=== PATIENT | male | born 1930 | race Caucasian/White ===

== ENCOUNTER 2016-07-18 18:52 | Emergency (ER) | payer OTHER ==
[~2016-07-18] VITALS: Ht 167.6 cm; Wt 75.0 kg
[~2016-07-18 18:52] MED LIST: DOCU100C59 PO; LANT3I SQ; LOSA50TA2 PO; PANT40TA4 PO; SIMV20TA6 PO; TAMS-14 PO; [UNRECOGNIZED DRUG - CODE] PO
[2016-07-18 19:02] VITALS: Ht 167.6 cm; Wt 75.0 kg
--- NOTE | 2016-07-18 20:28 | RADRPT ---
PROCEDURE: Left upper extremity venous ultrasound CLINICAL INDICATION: Left arm pain and swelling. Deep venous thrombosis. TECHNIQUE: Rose scale, color doppler, spectral doppler ultrasound imaging of the venous system of the left upper extremity. Augmentation maneuvers were utilized. COMPARISON: No prior studies are available for comparison. FINDINGS: LEFT: Internal jugular vein: Patent. Subclavian vein: Patent. Axillary vein: Patent. Brachial vein: Patent. Basilic vein: Patent. Cephalic vein: Patent. Radial vein: Patent. Ulnar vein: Patent. IMPRESSION: No evidence of a deep vein thrombosis involving the left upper extremity. RPTAT: AADD .Radu Carter MD, MD Date Time Electronically viewed and signed by .Radu Carter MD, on 07/18/2016 20:28 .B/
--- NOTE | 2016-07-18 20:48 | RADRPT ---
PROCEDURE: Right upper extremity venous ultrasound CLINICAL INDICATION: Right arm pain and swelling, deep venous thrombosis TECHNIQUE: Rose scale, color doppler, spectral doppler ultrasound imaging of the venous system of the right upper extremity. Augmentation maneuvers were utilized. COMPARISON: No prior studies are available for comparison. FINDINGS: RIGHT: Internal jugular vein: Patent. Subclavian vein: Patent. Axillary vein: Patent. Brachial vein: Patent. Basilic vein: Patent. Cephalic vein: Patent. Radial vein: Patent. Ulnar vein: Patent. IMPRESSION: No evidence of a deep vein thrombosis involving the right upper extremity. RPTAT: AADD .Radu Carter MD, MD Date Time Electronically viewed and signed by .Radu Carter MD, on 07/18/2016 20:47 .B/
--- NOTE | 2016-07-18 21:05 | RADRPT ---
PROCEDURE: Ultrasound of the bilateral lower extremity venous system. CLINICAL INDICATION: Bilateral leg pain and swelling, deep venous thrombosis TECHNIQUE: Rose scale with and without compression, color doppler, spectral doppler of the venous system of the bilateral lower extremities was performed. Venous augmentation maneuvers were utilized . COMPARISON: No prior studies are available for comparison. FINDINGS: RIGHT: Common femoral vein: Patent. Femoral vein: Patent. Popliteal vein: Patent. Calf veins: Patent. No soft tissue abnormalities are identified. LEFT: Common femoral vein: Patent. Femoral vein: Patent. Popliteal vein: Patent. Calf veins: Patent. No soft tissue abnormalities are identified. IMPRESSION: No evidence of a deep vein thrombosis within the bilateral lower extremities. RPTAT: AADD .Radu Carter MD, MD Date Time Electronically viewed and signed by .Radu Carter MD, on 07/18/2016 21:04 .B/
[2016-07-18] MEDS ORDERED: FURO-109 PO (21:26)
[2016-07-18 21:43] VITALS: BP 148/61; PULSE 63; RESP 18
--- NOTE | 2016-07-18 22:49 | ERD ---
ER Documentation Chief Complaint Date/Time DATE: 07/18/16 TIME: 22:47 Chief Complaint left arm pain x 3 months, sent from clinic to r/o dvt HPI Patient is a 85-year-old male with hypertension and diabetes who presents with swelling. The patient was sent from the [facility] clinic for bilateral upper and lower extremity ultrasounds to rule out DVT. The patient started with swelling 4-5 months ago. The patient has had no treatment as of yet for the swelling. The patient feels diffuse body pain. ROS All systems reviewed and are negative except as per history of present illness. Medications Home Meds Active Scripts Furosemide* (Lasix*) 40 Mg Tablet, 40 MG PO DAILY, #20 TAB Prov:VICENTE BELTRAN MD 07/18/16 Reported Medications Pantoprazole* (Pantoprazole*) 40 Mg Tablet.dr, 40 MG PO DAILY, TAB 12/19/15 Insulin Glargine* (Lantus*) 100 Unit/Ml Soln, 20 UNITS SQ DAILY, #10 12/19/15 Docusate Sodium (Col-Rite) 100 Mg Capsule, 100 MG PO DAILY, #60 12/19/15 Tamsulosin Hcl* (Flomax*) 0.4 Mg Cap.er.24h, 0.4 MG PO DAILY, #60 12/19/15 Metformin HCl (Fortamet) 500 Mg Tab.er.24, 500 MG PO BID, #60 12/19/15 Simvastatin (Simvastatin) 20 Mg Tablet, 20 MG PO HS, #60 12/19/15 Losartan Potassium* (Cozaar*) 50 Mg Tablet, 50 MG PO DAILY, #30 12/19/15 Allergies Allergies: Coded Allergies: No Known Allergy (Unverified , 07/18/16) PMhx/Soc History of Surgery: Yes (APPENDECTOMY, CATARACTS) Anesthesia Reaction: No Hx Neurological Disorder: No Hx Respiratory Disorders: No Hx Cardiac Disorders: Yes (HTN) Hx Psychiatric Problems: No Hx Miscellaneous Medical Probl: No Hx Alcohol Use: No Hx Substance Use: No Hx Tobacco Use: No Smoking Status: Never smoker FmHx Family History: diabetes Physical Exam Vitals Vital Signs Date Time Temp Pulse Resp B/P Pulse Ox O2 Delivery O2 Flow Rate FiO2 07/18/16 21:43 63 18 148/61 98 Room Air 07/18/16 19:02 97.7 65 20 148/67 97 Physical Exam Const: No acute distress Head: Atraumatic Eyes: Normal Conjunctiva ENT: Normal External Ears, Nose and Mouth. Neck: Full range of motion..~ No meningismus. Resp: Clear to auscultation bilaterally Cardio: Regular rate and rhythm, no murmurs Abd: Soft, non tender, non distended. Normal bowel sounds Skin: No petechiae or rashes Back: No midline or flank tenderness Ext: Pitting edema to all 4 extremities 2+ Neur: Awake and alert Psych: Normal Mood and Affect Procedures/MDM Bilateral upper and lower extremity ultrasounds were negative for DVT. Patient is an 85-year-old male with hypertension and diabetes who presents with upper and lower extremity swelling. The patient had ultrasounds which were negative for DVT. I believe there may be an element of heart failure causing the swelling but the patient is in no respiratory distress at this time and his oxygen level is normal. He does not require submental oxygen. I believe outpatient management is appropriate. The patient will be given Lasix daily for the fluid. However he should have close follow-up with his primary doctor within 24-48 hours. He can return sooner for any worsening symptoms. Departure Diagnosis: Primary Impression: Swelling Condition: Fair Patient Instructions: Peripheral Edema, Bilateral Additional Instructions: Llame al doctor MAANA y noreen dimas ALEXANDRE PARA DENTRO DE 1-2 PRITCHARD.Dgale a la secretaria que nosotros le instruimos hacer esta alexandre.Avise o llame si ashley condicin se empeora antes de la alexandre. Regresa aqui si peor o no mejor. VICENTE BELTRAN MD July 18, 2016 22:49
== END 2016-07-18 21:44 | disposition home or self-care (01) ==
LOC: E/R 18:52
DX: M79.89 Other specified soft tissue disorders (principal); I10 Essential (primary) hypertension; E11.9 Type 2 diabetes mellitus without complications; Z79.84 Long term (current) use of oral hypoglycemic drugs; Z79.4 Long term (current) use of insulin
CPT/HCPCS: 93970; 93971; Z7502

== ENCOUNTER 2016-08-09 18:10 | Inpatient (IN) | payer OTHER ==
[~2016-08-09] VITALS: Ht 167.6 cm; Wt 69.3 kg
[~2016-08-09 18:10] MED LIST changes: +FURO-109 PO
[2016-08-09] MEDS ORDERED: ASC500 PO (21:09)
[2016-08-09] MEDS ORDERED: FER325 PO (21:09)
[2016-08-09] MEDS ORDERED: DOCU-159 PO (21:09)
[2016-08-09] MEDS ORDERED: FURO40TA4 PO (21:10)
[2016-08-09] MEDS ORDERED: SIMV20TA PO (21:11)
[2016-08-09] MEDS ORDERED: ASPI-664 PO (21:11)
[2016-08-09] MEDS ORDERED: GABA300C16 PO (21:11)
[2016-08-09] MEDS ORDERED: TAMS0.4C2 PO (21:12)
[2016-08-09] MEDS ORDERED: PANT40TA4 PO (21:12)
[2016-08-09] MEDS ORDERED: MELO-109 PO (21:13)
[2016-08-09] MEDS ORDERED: LOSA100T7 PO (21:13)
[2016-08-09] MEDS ORDERED: REPA0.5T3 PO (21:14)
[2016-08-09] MEDS ORDERED: SODIUM CHLORIDE 0.9% 1L BAG IV* STA (21:14)
[2016-08-09] MEDS ORDERED: HYDR-906 PO (21:15)
[2016-08-09] MEDS ORDERED: LANT3I SC (21:16)
[2016-08-09] MEDS ORDERED: DONE5TAB7 PO (21:17)
[2016-08-09] MEDS ORDERED: L. A1CAP12 PO (21:18)
[2016-08-09] MEDS ORDERED: LEVOFLOXACIN 750MG/D5W (PMX) 150 ML IVPB ONE (21:30)
--- NOTE | 2016-08-09 21:42 | RADRPT ---
PROCEDURE: XR Chest. CLINICAL INDICATION: Suspected sepsis TECHNIQUE: Single AP view of the chest were obtained COMPARISON: None FINDINGS: The heart is moderately enlarged. The pulmonary vasculature are enlarged bilaterally. The aorta dem onstrates atherosclerotic calcifications. There are mild bibasilar opacities present with likely sm all left effusion and left lower lobe consolidation. There is diffuse irregular sclerotic and lucent appearance of the osseous structures diffusely. IMPRESSION: Cardiomegaly and vascular congestion is seen with small left effusion and the presence of left lower lung consolidation which could represent atelectasis or pneumonia. Diffuse irregular density of the osseous structures is suspicious for osseous metastatic disease. RPTAT: AA .Eliecer Batres MD, Date Time Electronically viewed and signed by .Eliecer Batres MD, MD on 08/09/2016 21:42 .J/
[2016-08-09 21:47] LABS: ADD SCAN DIFF NO
[2016-08-09 21:48] LABS: BASOPHILS % 0.1 % (0.0-2.0); EOSINOPHILS % 0.1 % (0.0-7.0); HEMATOCRIT 28.9 % (42.0-52.0); HEMOGLOBIN 9.9 g/dl (14.0-18.0); LYMPHOCYTES # 1.1 10^3/ul (0.8-2.9); LYMPHOCYTES % 11.3 % (15.0-51.0); MEAN CORPUSCULAR HEMOGLOBIN 30.5 pg (29.0-33.0); MEAN CORPUSCULAR HGB CONC 34.3 g/dl (32.0-37.0); MEAN CORPUSCULAR VOLUME 88.9 fl (82.0-101.0); MONOCYTE # 1.1 10^3/ul (0.3-0.9); MONOCYTES % 11.5 % (0.0-11.0); NEUTROPHIL # 7.1 10^3/ul (1.6-7.5); NEUTROPHILS % 75.7 % (39.0-77.0); NUCLEATED RED BLOOD CELLS% 0.2 /100WBC (0.0-0.0); PLATELET COUNT 210 10^3/UL (140-415); RED BLOOD COUNT 3.25 10^6/ul (4.70-6.10); RED CELL DISTRIBUTION WIDTH 17.6 % (11.5-14.5); WHITE BLOOD COUNT 9.4 10^3/ul (4.8-10.8)
--- NOTE | 2016-08-09 21:54 | RADRPT ---
PROCEDURE: CT Brain without contrast. CLINICAL INDICATION: Altered mental status TECHNIQUE: Routine CT scan of the brain was performed on a high resolution multi detector scanner without intravenous contrast. One or more of the following dose reduction techniques were used: Auto mated exposure control; Adjustment of the mA and/or kV according to patient size; Use of iterative r econstruction technique. CTDI = 43 mGy. DLP = 839 mGy-cm. COMPARISON: No prior relevant examinations are available for comparison. FINDINGS: Hemorrhage: No evidence of intracranial hemorrhage. Acute ischemic changes: No evidence of acute ischemic changes. Mass effect/Midline shift: None. Parenchymal volume: Mild central parenchymal volume loss is evident. Ventricular system: Concordant with parenchymal volume. Chronic changes: There are numerous and confluent areas of significant low attenuation change within the supratentorial white matter most compatible with severe chronic microvascular ischemic changes. Atherosclerotic calcifications of the cavernous portions of both internal carotid arteries are prese nt. Extracranial soft tissues: Unremarkable. Calvarium: No fractures. Partially visualized abnormal sclerosis involving the clivus, occipital bon e, and both mandibular condyles; possibly also involving the partially visualized C1 vertebrae. Paranasal sinuses: Visualized paranasal sinuses are clear. Mastoid air cells: Visualized mastoid air cells are clear. IMPRESSION: No acute intracranial abnormalities. Severe chronic-appearing microvascular ischemic changes of the supratentorial white matter. MRI of the brain may be useful for further evaluation. Partially visualized abnormal sclerosis involving the clivus, occipital bone, both mandibular condyl es, and suspected within the C1 of vertebrae. Differential considerations includes Paget's disease, radiation therapy changes, osseous metastasis or other systemic bone disease. Bone scan may be use ful for further evaluation. RPTAT: AADD .Radu Carter MD, Date Time Electronically viewed and signed by .Radu Carter MD, MD on 08/09/2016 21:53 .B/
[2016-08-09 21:58] LABS: ADD UMIC YES; UR BILIRUBIN (Dip) NEGATIVE (NEGATIVE); UR BLOOD (Dip) TRACE (NEGATIVE); UR COLOR YELLOW (YELLOW); UR GLUCOSE (Dip) NEGATIVE (NEGATIVE); UR KETONES (Dip) NEGATIVE (NEGATIVE); UR LEUKOCYTE ESTERASE (Dip) NEGATIVE (NEGATIVE); UR NITRITE (Dip) NEGATIVE (NEGATIVE); UR TOTAL PROTEIN (Dip) NEGATIVE (NEGATIVE); UR UROBILINOGEN (Dip) 0.2 E.U./dL (0.1-1.0)
[2016-08-09 22:09] LABS: INR 1.29; PROTIME 16.2 Sec (12.2-14.2); PT RATIO 1.3
[2016-08-09 22:10] LABS: PARTIAL THROMBOPLASTIN TIME 32.8 Sec (25.0-35.0)
[2016-08-09 22:10] LABS: UR CLARITY HAZY (CLEAR)
[2016-08-09 22:11] LABS: UR BACTERIA MODERATE; UR TRANSITIONAL EPI CELL MODERATE
[2016-08-09 22:15] LABS: ALBUMIN 3.5 g/dl (3.3-4.9); ALBUMIN/GLOBULIN RATIO 1.4; BILIRUBIN,INDIRECT 0.5 mg/dl (0-1.1); BILIRUBIN,TOTAL 0.5 mg/dl (0.2-1.3); CREATININE 0.64 mg/dl (0.61-1.24); POTASSIUM 4.2 mmol/L (3.5-5.1)
[2016-08-09 22:26] LABS: TROPONIN-I 0.052 ng/ml (0.00-0.12)
--- NOTE | 2016-08-09 22:34 | RADRPT ---
PROCEDURE: US DVT. CLINICAL INDICATION: Right lower extremity pain and swelling. TECHNIQUE: Multiple longitudinal and transverse images of the right lower extremity veins were obt ained with muñoz scale and color Doppler imaging. 2D grayscale measurements with compression, color Doppler flow, and augmentation was performed. The calf veins were interrogated as well. COMPARISON: No prior studies are available for comparison. FINDINGS: The right common femoral, superficial femoral and popliteal veins are normally compressible througho ut. Color flow demonstrates normal filling of the vessels. Normal waveforms are visualized and the re is normal response to augmentation. The calf veins are visualized and are equally unremarkable. There is a 3.7 x 1.0 x 2.4 cm Parker's cyst in the popliteal fossa. IMPRESSION: 1. No right lower extremity DVT. 2. 3.7 cm Parker's cyst in the popliteal fossa. RPTAT: HTAR .Edward Buenrostro MD, Date Time Electronically viewed and signed by .Edward Buenrostro MD, on 08/09/2016 22:34 .R/
[2016-08-09 23:26] VITALS: TEMP 98.2
[2016-08-09] MEDS ORDERED: ACETAMINOPHEN 325 MG TAB PO PRN (23:30)
[2016-08-09] MEDS ORDERED: ONDANSETRON 4 MG INJ IV PRN (23:30)
[2016-08-09 23:35] LABS: CALCIUM 7.4 mg/dl (8.4-10.2); CREATININE 0.51 mg/dl (0.61-1.24)
[2016-08-10] VITALS (15 sets, daily range): BP systolic 111–136; BP diastolic 55–65; PULSE 77–109; RESP 17–20; Ht 167.6 cm; Wt 69.3 kg
--- NOTE | 2016-08-10 00:57 | ERA ---
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 Per his family, he has not been walking. He has had complaints of nausea, decreased appetite, and pain all over his body. He has not had any vomiting but has had multiple episodes of nonbloody diarrhea. He has not urinated today and had very little urine production yesterday. No fevers or chills. No falls or head injury. ROS Limited given patient is very altered Medications Home Meds Reported Medications L. Acidophilus/Pectin, [place] (Acidophilus Capsule) 1 Each Capsule, 1 EACH PO DAILY, CAP 08/09/16 Donepezil* (Donepezil*) 5 Mg Tablet, 5 MG PO QHS, #30 TAB 08/09/16 Insulin Glargine* (Lantus*) 100 Unit/Ml Soln, 10 UNIT SC QHS, #1 VIAL 08/09/16 Hydrocodone/Acetaminophen ([place] 5-325 Tablet) 1 Each Tablet, 1 EACH PO QID, TAB 08/09/16 Repaglinide* (Repaglinide*) 0.5 Mg Tablet, 1 MG PO AC MEALS Y for TID, TAB 08/09/16 Losartan Potassium* (Losartan Potassium*) 100 Mg Tablet, 100 MG PO DAILY, TAB 08/09/16 Meloxicam* (Meloxicam*) 7.5 Mg Tablet, 7.5 MG PO QAM, #30 TAB 08/09/16 Tamsulosin Hcl* (Tamsulosin Hcl*) 0.4 Mg Cap.er.24h, 0.4 MG PO DAILY, CAP 08/09/16 Pantoprazole* (Pantoprazole*) 40 Mg Tablet.dr, 40 MG PO AC BREAKFAST, TAB 08/09/16 Gabapentin* (Gabapentin*) 300 Mg Capsule, 300 MG PO TID, #90 CAP 08/09/16 Aspirin* (Aspirin* EC) 81 Mg Tablet.dr, 81 MG PO DAILY, TAB 08/09/16 Simvastatin* (Zocor*) 20 Mg Tablet, 20 MG PO QHS, #30 TAB 08/09/16 Furosemide* (Furosemide*) 40 Mg Tablet, 40 MG PO DAILY, TAB 08/09/16 Docusate Sodium* (Docusate Sodium*) 100 Mg Capsule, 100 MG PO DAILY, #30 CAP 08/09/16 Ascorbic Acid (Vitamin C) 500 Mg Tab, 500 MG PO DAILY, TAB 08/09/16 Ferrous Sulfate* (Ferrous Sulfate*) 325 Mg Tabec, 325 MG PO BID, TAB 08/09/16 Discontinued Reported Medications Pantoprazole* (Pantoprazole*) 40 Mg Tablet.dr, 40 MG PO DAILY, TAB 12/19/15 Insulin Glargine* (Lantus*) 100 Unit/Ml Soln, 20 UNITS SQ DAILY, #10 12/19/15 Docusate Sodium (Col-Rite) 100 Mg Capsule, 100 MG PO DAILY, #60 12/19/15 Tamsulosin Hcl* (Flomax*) 0.4 Mg Cap.er.24h, 0.4 MG PO DAILY, #60 12/19/15 Metformin HCl (Fortamet) 500 Mg Tab.er.24, 500 MG PO BID, #60 12/19/15 Simvastatin (Simvastatin) 20 Mg Tablet, 20 MG PO HS, #60 12/19/15 Losartan Potassium* (Cozaar*) 50 Mg Tablet, 50 MG PO DAILY, #30 12/19/15 Discontinued Scripts Furosemide* (Lasix*) 40 Mg Tablet, 40 MG PO DAILY, #20 TAB Prov:VICENTE BELTRAN MD 07/18/16 Allergies Allergies: Coded Allergies: No Known Allergy (Unverified , 08/09/16) PMhx/Soc History of Surgery: Yes (APPENDECTOMY, CATARACTS) Anesthesia Reaction: No Hx Neurological Disorder: No Hx Respiratory Disorders: No Hx Cardiac Disorders: Yes (HTN, prostate CA) Hx Psychiatric Problems: No Hx Miscellaneous Medical Probl: Yes (DM) Hx Alcohol Use: No Hx Substance Use: No Hx Tobacco Use: No Smoking Status: Never smoker FmHx Family History: other (Unable to obtain) Physical Exam Vitals Vital Signs Date Time Temp Pulse Resp B/P Pulse Ox O2 Delivery O2 Flow Rate FiO2 08/09/16 21:44 Nasal Cannula 2 08/09/16 20:40 98.9 127 20 94/54 97 Room Air 08/09/16 18:15 97.8 73 18 100/50 98 Physical Exam Const: Sickly appearing, pale, eyes closed, answers questions selectively Head: Atraumatic Eyes: Normal Conjunctiva ENT: Dry oral mucosa, no intraoral lesions Neck: Full range of motion. No JVD. No meningismus. Resp: Clear to auscultation bilaterally Cardio: Tachycardic with regular rhythm, no murmurs Abd: Soft, non tender, non distended. Normal bowel sounds Skin: No petechiae or rashes Back: No midline or flank tenderness Ext: No cyanosis, there is mild swelling of the right lower extremity compared to left lower extremity, nonpitting, no discoloration. 2+ distal pulses Neur: Somnolent, arousable, answers questions inappropriately, moves all extremities spontaneously, withdraws to pain in all extremities Result Diagram: 08/09/16212808/09/162128 Results 24 hrs Laboratory Tests Test 08/09/16 20:50 08/09/16 21:29 Urine Color YELLOW Urine Clarity HAZY Urine pH 5.0 Urine Specific [place] 1.015 Urine Ketones NEGATIVE Urine Nitrite NEGATIVE Urine Bilirubin NEGATIVE Urine Urobilinogen 0.2 E.U./dL Urine Leukocyte Esterase NEGATIVE Urine Microscopic RBC 10-25/HPF Urine Microscopic WBC NONE SEEN/HPF Urine Transitional Epithelial Cells MODERATE Urine Bacteria MODERATE Urine Hyaline Casts MODERATE Urine Hemoglobin TRACE Urine Glucose NEGATIVE% Urine Total Protein NEGATIVE White Blood Count 9.410^3/ul Red Blood Count 3.2510^6/ul Hemoglobin 9.9g/dl Hematocrit 28.9% Mean Corpuscular Volume 88.9fl Mean Corpuscular Hemoglobin 30.5pg Mean Corpuscular Hemoglobin Concent 34.3g/dl Red Cell Distribution Width 17.6% Platelet Count 45107^3/UL Mean Platelet Volume 9.0fl Neutrophils % 75.7% Lymphocytes % 11.3% Monocytes % 11.5% Eosinophils % 0.1% Basophils % 0.1% Nucleated Red Blood Cells % 0.2/100WBC Neutrophils # 7.110^3/ul Lymphocytes # 1.110^3/ul Monocytes # 1.110^3/ul Eosinophils # 0.010^3/ul Basophils # 0.010^3/ul Nucleated Red Blood Cells # 0.010^3/ul Prothrombin Time 16.2Sec Prothrombin Time Ratio 1.3 INR International Normalized Ratio 1.29 Activated Partial Thromboplast Time 32.8Sec Sodium Level 117mmol/L Potassium Level 4.2mmol/L Chloride Level 85mmol/L Carbon Dioxide Level 25mmol/L Anion Gap 11 Blood Urea Nitrogen 20mg/dl Creatinine 0.64mg/dl Glucose Level 213mg/dl Lactic Acid Level 1.9mmol/L Calcium Level 8.0mg/dl Total Bilirubin 0.5mg/dl Direct Bilirubin 0.00mg/dl Indirect Bilirubin 0.5mg/dl Aspartate Amino Transf (AST/SGOT) 69IU/L Alanine Aminotransferase (ALT/SGPT) 32IU/L Alkaline Phosphatase 1442IU/L Troponin I 0.052ng/ml Total Protein 6.0g/dl Albumin 3.5g/dl Globulin 2.50g/dl Albumin/Globulin Ratio 1.40 Current Medications Medications (Trade) Dose Ordered Sig/John Route PRN Reason Start Time Stop Time Status Last Admin Dose Admin Sodium Chloride 2330 ml 2,330 ml BOLUS OVER 2 HOURS STAT IV* 08/09/16 21:14 08/09/16 21:16 DC 08/09/16 22:02 Levofloxacin/ Dextrose (Levaquin 750 Mg/ D5W 150 ml (Pmx)) 150 ml @ 100 mls/hr ONCE ONCE IVPB 08/09/16 21:30 08/09/16 22:59 DC 08/09/16 22:01 Procedures/MDM EMERGENT LABS AND DIAGNOSTIC STUDIES: Lab Results above were reviewed and interpreted by me. CBC is notable for anemia BMP shows hyponatremia Liver enzymes notable for alk phos elevation Lactate within normal limits Troponin within normal limits Urinalysis does not show evidence of infection, blood noted 12-lead EKG was interpreted by Jigna Awad MD: A flutter with variable block at 108 bpm Normal axis Normal intervals No acute ST or T wave changes suggestive of acute ischemia or STEMI. Repeat 12-lead EKG was interpreted by Jigna Awad MD: A flutter with variable block at 111 bpm Normal axis Normal intervals No acute ST or T wave changes suggestive of acute ischemia or STEMI. Radiology Results as interpreted by Radiology below were reviewed by Redd Awad MD: Chest x-ray: IMPRESSION: Cardiomegaly and vascular congestion is seen with small left effusion and the presence of left lower lung consolidation which could represent atelectasis or pneumonia. Diffuse irregular density of the osseous structures is suspicious for osseous metastatic disease. .Eliecer Batres MD, Date Time Electronically viewed and signed by .Eliecer Batres MD, on 08/09/2016 21:42 CT head: IMPRESSION: No acute intracranial abnormalities. Severe chronic-appearing microvascular ischemic changes of the supratentorial white matter. MRI of the brain may be useful for further evaluation. Partially visualized abnormal sclerosis involving the clivus, occipital bone, both mandibular condyles, and suspected within the C1 of vertebrae. Differential considerations includes Paget's disease, radiation therapy changes , osseous metastasis or other systemic bone disease. Bone scan may be useful for further evaluation. .Radu Carter MD, Date Time Electronically viewed and signed by .Radu Carter MD, MD on 08/09/2016 21:53 Venous duplex ultrasound right lower extremity: negative for DVT Initial Nursing notes reviewed. Previous Medical Records requested via the Electronic Health Record. EMERGENCY DEPARTMENT COURSE / MEDICAL DECISION MAKING: Patient is presenting with altered mental status and vitals notable for tachycardia and hypotension. However he is afebrile. On exam he does not appear well and appears dehydrated. IV fluids, broad-spectrum antibiotics were started. There is no obvious source of infection on exam. His chest x-ray does show a consolidation consistent with possible pneumonia. Labs showed evidence of severe hyponatremia. Patient's infectious symptoms have not stabilized and the patient is at risk of rapid decompensation. The patient will be admitted for careful hydration, antibiotic therapy, and infectious source control. Severe Sepsis Assessment: Infectious Source: Possible pneumonia Severe Sepsis Managment: Blood Cultures X 2 before broad spectrum antibiotics initiated within 3 hours of recognition. 30 ml/kg NS bolus Completed Initial Lactate: [normal] Repeat Lactate [not indicated as initial < 2.0] Critical Care: Time: 35 minutes Treatments/Evaluations: Emergent fluid management, while maintaining close respiratory support. Immediate broad spectrum antibiotic therapy. Simultaneous assessment for possible sources in order to direct therapy. Consideration for invasive and chemical support to prevent respiratory or cardiac collapse. Accepting Care Team: Current data and ongoing care discussed. Time: Time of admission Primary Provider: Bri Consulting: none Outstanding Data: cultures Departure Diagnosis: Primary Impression: Altered mental status Qualified Code: R40.0 - Somnolence Additional Impressions: Hypotension Qualified Code: I95.89 - Other specified hypotension Tachycardia Metastatic malignant neoplasm to prostate Hyponatremia Condition: Serious BRAN AWAD MD Aug 10, 2016 00:49
[2016-08-10] MEDS ORDERED: ACETAMINOPHEN 650 MG SUPP PR PRN (03:00)
[2016-08-10] MEDS ORDERED: GLUCOSE GEL 15 GRAM TUBE PO PRN ×2 (03:45)
[2016-08-10] MEDS ORDERED: GLUCOSE GEL 15 GRAM TUBE BUCCAL PRN (03:45)
[2016-08-10] MEDS ORDERED: DILTIAZEM 25 MG INJ IV PRN (03:45)
[2016-08-10] MEDS ORDERED: DEXTROSE 50% 50 ML SYRINGE IV PRN ×2 (03:45)
[2016-08-10] MEDS ORDERED: GLUCAGON 1 MG INJ IM PRN (03:45)
[2016-08-10] MEDS ORDERED: NACL 3% 300 ML IV SCH (04:00)
[2016-08-10] MEDS: PANTOPRAZOLE 40 MG INJ IV SCH (05:35)
[2016-08-10] MEDS: INSULIN ASPART [NOVOLOG] 3 ML PEN SC SCH ×5 (05:47→20:36)
[2016-08-10] MEDS: ENOXAPARIN 40 MG/0.4 ML SYG SC SCH (09:35)
[2016-08-10] MEDS ORDERED: PENDING SANTYL ORDER FOR WOUND CARE XX PRN (12:00)
[2016-08-10 12:11] LABS: CALCIUM 7.6 mg/dl (8.4-10.2); CREATININE 0.47 mg/dl (0.61-1.24)
--- NOTE | 2016-08-10 13:49 | HP ---
DATE OF ADMISSION: 08/09/2016 CHIEF COMPLAINT: Decreased appetite, nausea, altered level of consciousness. HISTORY OF PRESENT ILLNESS: The patient is an 86-year-old male who lives with his daughter . Patient has a history of metastatic prostate cancer which is untreated, history of hypertension, diabetes. Patient presented for altered mental status for the past couple of days. Per family, the patient has not been walking. Per family, the patient had decreased appetite, complains of nausea and myalgia. The patient also had episodes of nonbloody diarrhea. Patient also was unable to urina te, per family. The patient had a Montesinos catheter inserted in the emergency room with good response. Patient underwent bilateral lower extremity ultrasound which was negative for right lower extremit y DVT, ____ of 3.7 cm Parker cyst in the popliteal fossa. The patient's chest x-ray revealed cardi omegaly and vascular congestion, is seen with a small left effusion and the presence of left lower l israel consolidation which could represent atelectasis or pneumonia, diffuse irregular density and also the structures suspicious for ____ metastatic disease. The patient underwent CT of the brain witho ut contrast which revealed no acute intracranial abnormalities, severe chronic appearing microvascul ar ischemic changes of the supratentorial white matter, partially visualized abnormal sclerosis invo lving the clivus occipital bone, both mandibular condyles and suspected within C1 of vertebra. The patient was also tachycardic and hypotensive. Patient was given IV fluids and started on broad spectrum antibiotics and patient was admitted for further evaluation and management. PAST MEDICAL HISTORY: Includes hypertension, prostate CA and diabetes mellitus. PAST SURGICAL HISTORY: Status post appendectomy, status post cataract surgery and status post ERCP with stent removal, sphincterectomy and removal of stones by Dr. Pat in 2016. FAMILY HISTORY: Noncontributory. SOCIAL HISTORY: Patient lives at home with her family and there is no history of tobacco use, alcoh ol use or illicit drug use. ALLERGIES: NO KNOWN ALLERGIES. HOME MEDICATIONS: Include: 1. Acidophilus. 2. Donepezil. 3. Lantus. 4. [place]. 5. Repaglinide. 6. Cozaar. 7. Meloxicam. 8. Tamsulosin. 9. Protonix. 10. Gabapentin. 11. Aspirin. 12. Zocor. 13. Furosemide. 14. Colace. 15. Vitamin C. 16. Ferrous sulfate. REVIEW OF SYSTEMS: A 12-point review of systems is negative unless mentioned in the HPI. PHYSICAL ASSESSMENT: GENERAL: well-developed, well-nourished male, currently is awake, alert to name. Otherwise, pleasa ntly confused. VITAL SIGNS: Temperature is 98.2, pulse is 77, blood pressure 118/58, respiratory rate is 18, oxyge n saturation is 97. HEENT: Head is atraumatic, normocephalic. Pupils equal, round, reactive to light and accommodation . Oral mucosa is pink and moist. NECK: Supple, no cervical lymphadenopathy, no thyromegaly. CHEST: Lungs clear bilaterally. There are no rhonchi or wheezes heard. CARDIOVASCULAR: Normal S1, S2. No murmurs, gallops, clicks, rubs noted. ABDOMEN: Round, soft, nondistended, nontender. Patient has a mild reducible umbilical hernia. EXTREMITIES: There is mild swelling of the right lower extremity, pulses equal bilaterally 2+. SKIN: There is no rash, petechiae noted. The patient has some discoloration of his sacrum. NEUROLOGIC: Patient is awake, alert to name; otherwise confused. LABORATORY DATA: On admission, CBC: White blood cells 9.4, hemoglobin 9.9, hematocrit 28.9, platel ets 210. Chemistry: Sodium on admission is 114, potassium 4.0, chloride 89, carbon dioxide 22, ani on gap 7, BUN is 18, creatinine 0.51, glucose 183, calcium is 7.4. Lactic acid is 1.9, AST is 69, A LT 32, alkaline phosphate is 1442. ASSESSMENT AND PLAN: 1. Altered mental status, possible pneumonia. Continue patient on broad spectrum antibiotics. Mon itor chest x-ray. 2. Paroxysmal atrial fibrillation. I am going to ask Dr. Ragsdale to see patient in cardiology cons ultation. Continue to monitor patient on telemetry floor. 3. Hyponatremia. Dr. Howard will be following patient in nephrology consultation. Continue intrave nous fluids. 4. History of prostate carcinoma. 5. Diabetes mellitus. 6. Hypertension. 7. Urinary retention. We are going to resume patient's home medications. Continue to monitor Accu-Chek q. a.c. and at bed time with mild ____ sliding scale insulin. Obtain a swallow evaluation. Continue Lovenox for deep venous thrombosis prophylaxis and Protonix for peptic ulcer disease prophylaxis. Further recommenda tions based on clinical course. Plan of care discussed with Dr. Paul. Dictated By: ROBERT CORRALES RACK CARRIER for CHANELLE PAUL MD SR/NTS Conf#: [id number] DID#: [id number]
[2016-08-10] MEDS ORDERED: METOPROLOL 5 MG INJ IV PRN (14:30)
--- NOTE | 2016-08-10 14:30 | CONS ---
DATE OF ADMISSION: 08/09/2016 DATE OF CONSULTATION: 08/10/2016 TYPE OF CONSULTATION: Nephrology REASON FOR CONSULTATION: Acute metabolic encephalopathy with severe hyponatremia, sodium 114 on adm ission. REFERRING PHYSICIAN: Dr. Gregory. HISTORY OF PRESENT ILLNESS: This is an 86-year-old male with a past medical history of hypertension , history of prostate CA, history of bilateral knee osteoarthritis, diabetes mellitus, history of pr evious appendectomy. The patient was brought in to the [facility] Emergency Room on 08/09/2016 by paramedics because of altered mental status. The patient is not able to provide an y detailed history. The patient has not been walking as per the family. Patient complains of nause a, decreased appetite, pain all over his body. He has been confused and altered for the last 2 days . He had multiple episodes of non-bloody diarrhea. Patient did not urinate yesterday. A Montesinos cat heter was placed in the emergency room and has so far had about 700 mL urine output. On admission, the sodium was 144, subsequently started on 3% hypertonic saline. The followup sodium was 122. Cur rently, he is awake, alert, but he is still confused intermittently, not able to answer the question s properly. REVIEW OF SYSTEMS: Unable to obtain from the patient, he seems currently altered and confused. PAST SURGICAL HISTORY: History of appendectomy, cataract surgery. SOCIAL HISTORY: The patient is brought in by family, lives with the family. No smoking, alcohol or recreational drug use. FAMILY HISTORY: Noncontributory. PHYSICAL EXAMINATION: VITAL SIGNS: Temperature 98.2, heart rate 100, respiration 18, blood pressure 118/58, saturation 97 % on room air. GENERAL: Awake, alert, in no distress. HEENT: Normal. Oropharynx clear. NECK: Supple, no JVD, no lymphadenopathy. LUNGS: Clear to auscultation. No crackles, no wheezes. HEART: S1, S2, with regular rhythm, no murmur. ABDOMEN: Soft, nontender, nondistended. Bowel sounds are present. EXTREMITIES: No clubbing, cyanosis, or edema. Montesinos catheter in place. NEUROLOGICAL: Alert, awake but not oriented to the place, person and time. Not cooperative for a f ull neurological exam. LABORATORY DATA AND DIAGNOSTIC IMAGING: Sodium 114, potassium 4, chloride 89, bicarbonate 22, BUN 18, creatinine 0.5, glucose 183, calcium is 7.4, lactic acid normal. PT 16.2, PTT 32.8, INR 1.29. WBC 9.4, hemoglobin 9.9, platelet count 210. CT brain without contrast negative for any acute find ings, severe chronic appearing vascular ischemic changes have been identified. IMPRESSION: This is an 86-year-old male who has been getting admitted for acute metabolic encephalo myrna and renal has been consulted for: 1. Severe hyponatremia with a sodium 114 on admission. 2. Acute metabolic encephalopathy and fall at home secondary to severe hyponatremia. 3. Hypovolemic hyponatremia versus syndrome of inappropriate diuretic hormone. 4. Hypertension. 5. Hyperlipidemia. 6. History of prostate carcinoma. 7. History of diabetes mellitus. 8. History of bilateral knee arthritis. PLAN: Thank you, Dr. Gregory, for this consultation. The patient is currently seen in the telemet ry floor, has been started on 3% hypertonic sodium, which was 114 on admission, has been improved to 122 at this point. I ordered another BMP to follow up on the sodium. The goal is to keep the sodi um up to 128 for today and if the sodium goes more than 128, plan is to stop the 3% hypertonic salin e and further plan will be decided depending on the followup sodium. Continue the sodium and 3:00 a.m. labs have been ordered to follow up on the sodium. At this point, the patient already received a 3% hypertonic saline so there is no point of ordering any urine studies, serum osmolality or urine osmolality. We will continue to follow this patient al darren with the primary care service, Dr. Gregory. Total time spent in this patient's evaluation, getting a detailed history from the patient and the f amily member, communicating with the nursing staff, ____ on the floor took more than 90 minutes. Dictated By: KARLENE MUÑOZ MD, KP/CHERRY Conf#: [id number] DID#: [id number] CC: CHANELLE GREGORY MD;*EndCC*
[2016-08-10 15:25] LABS: CALCIUM 7.6 mg/dl (8.4-10.2); CREATININE 0.43 mg/dl (0.61-1.24); POTASSIUM 3.9 mmol/L (3.5-5.1)
--- NOTE | 2016-08-10 17:15 | RADRPT ---
Echocardiogram Report Patient Name: CONCHA HORVATH Gender: Male Date: 1930 Study Date: 10-Aug-2016 [facility] Supervisor: Favio Domingo [facility] Location: [id number] Ref. Physician: ROSI RAGSDALE Quality: Adequate Procedures: Transthoracic echocardiogram with complete 2D, M-Mode, and doppler examination. Indications: Atrial Flutter. 2D/M Mode Doppler Measurement Value Normal Ranges Measurement Value Normal Ranges LVIDd 2D 4.8 3.5 - 5.6 cm AV Peak Abhilash 1.9 m/sec LVIDs 2D 2.5 2.1 - 4.1 cm AV Peak PG 14.0 mmHg FS 2D 48.0 % LVOT Peak Abhilash 1.2 m/sec LVPWd 2D 1.0 0.6 - 1.1 cm LVOT Peak PG 6.0 mmHg IVSd 2D 1.1 0.6 - 1.1 cm MV E Peak Abhilash 0.5 m/sec IVS/LVPW 2D 1.1 MV A Peak Abhilash 0.8 m/sec AoR Diam 2D 3.6 2.0 - 3.7 cm MV E/A 0.7 LA/Ao 2D 1 0 - 1 MV Decel Time 155 msec EDV 2D 109.0 cm3 MV E/A 0.7 ESV 2D 15.3 cm3 TR Peak Abhilash 2.6 m/sec LA Dimen 2D 3.2 2.3 - 4.0 cm TR Peak PG 27.0 mmHg RVSP 35.0 mmHg Findings Left Ventricle: Normal left ventricular systolic function. Normal left ventricular cavity size. Mild concentric left ventricular hypertrophy. Ejection fraction is visually estimated at 5560 %. Tissue Doppler/Mitral Doppler indices are consistent with impaired relaxation (Stage I diastolic dysfunction). Right Ventricle: Normal right ventricular size. Normal right ventricular systolic function. Left Atrium: The left atrium is normal in size. Right Atrium: The right atrium is normal in size. Mitral Valve: Mitral valve leaflets appear mildly thickened. Mild mitral annular calcification. Trace mitral regurgitation. Aortic Valve: No hemodynamically significant aortic stenosis by doppler. Aortic cusps appear mildly calcified. Trace to mild aortic valve regurgitation. Tricuspid Valve: Normal appearance of the tricuspid valve. Estimated peak PA systolic pressure 35 mmHg. There is trace tricuspid regurgitation. Pulmonic Valve: Pulmonic valve not well visualized. Pericardium: Left pleural effusion seen. Aorta: Normal aortic root. IVC: Dilated IVC with respiratory collapse consistent with elevated right atrial pressure. Conclusions 1.Normal left ventricular systolic function. Normal left ventricular cavity size. Mild concentric left ventricular hypertrophy. Ejection fraction is visually estimated at 55-60 %. Tissue Doppler/Mitral Doppler indices are consistent with impaired relaxation (Stage I diastolic dysfunction). 2.Mitral valve leaflets appear mildly thickened. Mild mitral annular calcification. Trace mitral regurgitation. 3.No hemodynamically significant aortic stenosis by doppler. Aortic cusps appear mildly calcified. Trace to mild aortic valve regurgitation. 4.Normal appearance of the tricuspid valve. Estimated peak PA systolic pressure 35 mmHg. There is trace tricuspid regurgitation. 5.Left pleural effusion seen. Electronically Signed By: Rosi Rgasdale 10-Aug-2016 17:14:57 -0700 Patient Name: CONCHA HORVATH Study Date: 10-Aug-2016 [id number]
[2016-08-10] MEDS: ASPIRIN 325 MG TAB PO SCH (17:40)
[2016-08-10] MEDS: AMIODARONE 200 MG TAB PO SCH (20:28)
[2016-08-10] MEDS: METOPROLOL 25 MG TAB PO SCH (20:28)
[2016-08-10] MEDS ORDERED: VANCOMYCIN IV PER PHARMACY XX SCH (23:30)
[2016-08-10] MEDS ORDERED: LORAZEPAM 2 MG INJ IV PRN (23:30)
[2016-08-11] VITALS (11 sets, daily range): BP systolic 125–159; BP diastolic 58–89; PULSE 71–92; RESP 16–20
[2016-08-11] MEDS: INSULIN ASPART [NOVOLOG] 3 ML PEN SC SCH ×6 (00:13→20:41)
[2016-08-11] MEDS ORDERED: VANCOMYCIN 1.5 GM in SOD CHLORIDE 0.9% 250 ML IVPB ONE (01:00)
[2016-08-11] MEDS: PANTOPRAZOLE 40 MG INJ IV SCH (05:27)
[2016-08-11 07:03] LABS: ADD SCAN DIFF NO; BASOPHILS % 0.1 % (0.0-2.0); EOSINOPHILS % 0.1 % (0.0-7.0); HEMATOCRIT 25.5 % (42.0-52.0); HEMOGLOBIN 8.5 g/dl (14.0-18.0); LYMPHOCYTES # 1.1 10^3/ul (0.8-2.9); LYMPHOCYTES % 10.1 % (15.0-51.0); MEAN CORPUSCULAR HEMOGLOBIN 30.4 pg (29.0-33.0); MEAN CORPUSCULAR HGB CONC 33.3 g/dl (32.0-37.0); MEAN CORPUSCULAR VOLUME 91.1 fl (82.0-101.0); MEAN PLATELET VOLUME 8.8 fl (7.4-10.4); MONOCYTE # 0.8 10^3/ul (0.3-0.9); NEUTROPHIL # 8.3 10^3/ul (1.6-7.5); NEUTROPHILS % 80.4 % (39.0-77.0); PLATELET COUNT 257 10^3/UL (140-415); RED CELL DISTRIBUTION WIDTH 17.8 % (11.5-14.5); WHITE BLOOD COUNT 10.4 10^3/ul (4.8-10.8)
[2016-08-11 07:23] LABS: ALBUMIN 2.9 g/dl (3.3-4.9); ALBUMIN/GLOBULIN RATIO 1.26; BILIRUBIN,INDIRECT 0.4 mg/dl (0-1.1); BILIRUBIN,TOTAL 0.4 mg/dl (0.2-1.3); CALCIUM 7.9 mg/dl (8.4-10.2); CREATININE 0.41 mg/dl (0.61-1.24); TOTAL PROTEIN 5.2 g/dl (6.1-8.1)
[2016-08-11] MEDS: ASPIRIN 325 MG TAB PO SCH (08:27)
[2016-08-11] MEDS: METOPROLOL 25 MG TAB PO SCH ×2 (08:28→20:31)
[2016-08-11] MEDS: AMIODARONE 200 MG TAB PO SCH ×2 (08:28→20:30)
[2016-08-11] MEDS: ENOXAPARIN 40 MG/0.4 ML SYG SC SCH (08:29)
--- NOTE | 2016-08-11 10:16 | CONS ---
Date/Time of Note Date/Time of Note DATE: 08/11/16 TIME: 10:14 Assessment/Plan Assessment/Plan Additional Assessment/Plan 1. Parox a. fib - in sinus now, rate controlled, con't to follow 1. Severe hyponatremia with a sodium 114 on admission - renal team follow, rx as needed 2. Acute metabolic encephalopathy and fall at home secondary to severe hyponatremia- still confused, gfamily at bedside 3. Hypovolemic hyponatremia versus syndrome of inappropriate diuretic hormone. 4. Hypertension- well Rx, con't to follow - not taking po meds now. 5. Hyperlipidemia. 6. History of prostate carcinoma. 7. History of diabetes mellitus - on meds, keep euglycemic. 8. History of bilateral knee arthritis. Consultation Date/Type/Reason Admit Date/Time Aug 09, 2016 at 23:11 Initial Consult Date 24 HR Interval Summary Free Text/Dictation Parox a. fib - in sinus now, rate controlled, con't to follow ROS: No fever, no chills, no nausea, no vomiting, no diarrhea/constipation No recent weight changes No chest pain, no PND, no orthopnea No dizziness, blurred vision No thirst, no heat or cold intolerance (per nurse- pt encephalopathic) Exam/Review of Systems Vital Signs Vitals Vital Signs Date Time Temp Pulse Resp B/P Pulse Ox O2 Delivery O2 Flow Rate FiO2 08/11/16 08:34 78 08/11/16 07:14 98.3 18 133/89 94 08/10/16 01:07 Room Air 08/09/16 21:44 2 Intake and Output 08/10/16 08/10/16 08/11/16 15:00 23:00 07:00 Intake Total 480 ml 400 ml Output Total 500 ml 400 ml Balance -20 ml 0 ml Exam General: WN/WD/NAD, AOx 0 HEENT: Unicetric/atraumatic/EOMI (does not follow commands) NECK: JVD elevated, no thyromegaly Lymph: no lymphadenopathy HEART: regular with no S3, II/ systolic murmur at apex LUNGS: Coarse sounds ABD: soft, NT, ND, +BS : Intact Neuro: non focal SKIN: chronic changes EXT: trace edema Results Result Diagram: 08/11/16 0500 08/11/16 0610 Results 24 hrs Laboratory Tests Test 08/10/16 11:35 08/10/16 12:27 08/10/16 14:00 08/10/16 14:50 Sodium Level 122 L 124 L Potassium Level 4.0 3.9 Chloride Level 95 L 96 L Carbon Dioxide Level 25 24 Anion Gap 6 L 8 Blood Urea Nitrogen 14 13 Creatinine 0.47 L 0.43 L Glucose Level 113 # 177 Calcium Level 7.6 L 7.6 L Bedside Glucose 125 Urine Random Sodium < 13 L Thyroid Stimulating Hormone (TSH) 0.958 Test 08/10/16 17:36 08/10/16 18:39 08/10/16 20:26 08/11/16 00:18 Bedside Glucose 166 265 H Troponin I 0.019 0.020 Test 08/11/16 05:00 08/11/16 05:26 08/11/16 06:10 08/11/16 08:30 White Blood Count 10.4 Red Blood Count 2.80 L Hemoglobin 8.5 L Hematocrit 25.5 L Mean Corpuscular Volume 91.1 Mean Corpuscular Hemoglobin 30.4 Mean Corpuscular Hemoglobin Concent 33.3 Red Cell Distribution Width 17.8 H Platelet Count 257 # Mean Platelet Volume 8.8 Neutrophils % 80.4 H Lymphocytes % 10.1 L Monocytes % 8.0 Eosinophils % 0.1 Basophils % 0.1 Nucleated Red Blood Cells % 0.0 Neutrophils # 8.3 H Lymphocytes # 1.1 Monocytes # 0.8 Eosinophils # 0.0 Basophils # 0.0 Nucleated Red Blood Cells # 0.0 Bedside Glucose 164 144 Sodium Level 127 L Potassium Level 4.0 Chloride Level 97 Carbon Dioxide Level 22 Anion Gap 12 Blood Urea Nitrogen 11 Creatinine 0.41 L Glucose Level 143 Calcium Level 7.9 L Total Bilirubin 0.4 Direct Bilirubin 0.00 Indirect Bilirubin 0.4 Aspartate Amino Transf (AST/SGOT) 38 Alanine Aminotransferase (ALT/SGPT) 36 Alkaline Phosphatase 1039 H Troponin I 0.020 Total Protein 5.2 L Albumin 2.9 L Globulin 2.30 Albumin/Globulin Ratio 1.26 Medications Medications Current Medications Diltiazem HCl (Cardizem Iv) 5 mg Q6H PRN IV ELEVATED HEART RATE; Start 08/10/16 at 03:45 Pantoprazole (Protonix Iv) 40 mg DAILY@06 IV Last administered on 08/11/16t 05: 27; Admin Dose 40 MG; Start 08/10/16 at 06:00 Enoxaparin Sodium (Lovenox) 40 mg DAILY SC Last administered on 08/11/16 08:29 ; Admin Dose 40 MG; Start 08/10/16 at 09:00 Acetaminophen (Tylenol Supp) 500 mg Q6H PRN LA FEVER; Start 08/10/16 at 03:00 Insulin Aspart (Novolog Insulin Pen) NOVOLOG *MILD* ALGORI... Q4 SC Last administered on 08/11/16 08:33; Admin Dose 1 UNIT; Start 08/10/16 at 05:00 Miscellaneous Information 1 ea NOTE XX ; Start 08/10/16 at 03:45 Glucose (Glutose) 15 gm Q15M PRN PO DECREASED GLUCOSE; Start 08/10/16 at 03:45 Glucose (Glutose) 22.5 gm Q15M PRN PO DECREASED GLUCOSE; Start 08/10/16 at 03:45 Dextrose (D50w Syringe) 25 ml Q15M PRN IV DECREASED GLUCOSE; Start 08/10/16 at 03:45 Dextrose (D50w Syringe) 50 ml Q15M PRN IV DECREASED GLUCOSE; Start 08/10/16 at 03:45 Glucagon (Glucagen) 1 mg Q15M PRN IM DECREASED GLUCOSE; Start 08/10/16 at 03:45 Glucose (Glutose) 15 gm Q15M PRN BUCCAL DECREASED GLUCOSE; Start 08/10/16 at 03: 45 [facility] This patient melendez... PRN PRN XX WOUND CARE; Start 08/10/16 at 12:00 Aspirin (Aspirin) 325 mg DAILY PO Last administered on 08/11/16 08:27; Admin Dose 325 MG; Start 08/10/16 at 14:30 Metoprolol Tartrate (Lopressor) 25 mg BID PO Last administered on 08/11/16 08: 28; Admin Dose 25 MG; Start 08/10/16 at 21:00 Amiodarone HCl (Cordarone) 200 mg BID PO Last administered on 08/11/16 08:28; Admin Dose 200 MG; Start 08/10/16 at 21:00 Metoprolol Tartrate (Lopressor) 5 mg Q4H PRN IV hr>110 hold sbp<100; Start 08/10 at 14:30 Lorazepam 0.5 mg 0.5 mg Q6H PRN IV ANXIETY Last administered on 08/11/16t 01:30 ; Admin Dose 0.5 MG; Start 08/10/16 at 23:30 Vancomycin HCl (Vancocin) 250 ml @ 125 mls/hr Q24H IVPB ; Start 08/12/16 at 01: 00 KIT FAYE MD Aug 11, 2016 10:16
[2016-08-11 13:08] LABS: HEMATOCRIT 25.1 % (42.0-52.0); HEMOGLOBIN 8.3 g/dl (14.0-18.0)
[2016-08-11] MEDS ORDERED: TOLVAPTAN 15 MG TABLET PO ONE (15:30)
--- NOTE | 2016-08-11 15:38 | CONS ---
Date/Time of Note Date/Time of Note DATE: 08/11/16 TIME: 15:36 Assessment/Plan Assessment/Plan Additional Assessment/Plan 1. Severe hyponatremia with a sodium 114 on admission. 2. Acute metabolic encephalopathy and fall at home secondary to severe hyponatremia. 3. Hypovolemic hyponatremia versus syndrome of inappropriate diuretic hormone. 4. Hypertension. 5. Hyperlipidemia. 6. History of prostate carcinoma. 7. History of diabetes mellitus. 8. History of bilateral knee arthritis. Plan: S/p 3 % saline, now Na improved to 127 will give one dose of tolvaptan 15 gram PO x 1 dose today, Na Check Q 8 hr x 3 will follow up on AM labs Other care as per PMD Consultation Date/Type/Reason Admit Date/Time Aug 09, 2016 at 23:11 Initial Consult Date Type of Consultation: NEPHROLOGY Reason for Consultation Severe hyponatremia, acute metabolic encephalopathy Referring Provider: CHANELLE PAUL MD 24 HR Interval Summary Free Text/Dictation Na improved to 127, BP stable, afebrile, no fever, no chills ,. still confused, has a ramirez, good urine output Exam/Review of Systems Vital Signs Vitals Vital Signs Date Time Temp Pulse Resp B/P Pulse Ox O2 Delivery O2 Flow Rate FiO2 08/11/16 12:21 71 08/11/16 11:37 98.1 18 159/65 96 08/10/16 01:07 Room Air 08/09/16 21:44 2 Intake and Output 08/10/16 08/10/16 08/11/16 15:00 23:00 07:00 Intake Total 480 ml 400 ml Output Total 500 ml 400 ml Balance -20 ml 0 ml Exam GENERAL: Awake, but confused HEENT: Normal. Oropharynx clear. NECK: Supple, no JVD, no lymphadenopathy. LUNGS: Clear to auscultation. No crackles, no wheezes. HEART: S1, S2, with regular rhythm, no murmur. ABDOMEN: Soft, nontender, nondistended. Bowel sounds are present. EXTREMITIES: No clubbing, cyanosis, or edema. Ramirez catheter in place. NEUROLOGICAL: Alert, awake but not oriented to the place, person and time. Not cooperative for a full neurological exam. Results Result Diagram: 08/11/16 1245 08/11/16 0610 Results 24 hrs Laboratory Tests Test 08/10/16 17:36 08/10/16 18:39 08/10/16 20:26 08/11/16 00:18 Bedside Glucose 166 265 H Troponin I 0.019 0.020 Test 08/11/16 05:00 08/11/16 05:26 08/11/16 06:10 08/11/16 08:30 White Blood Count 10.4 Red Blood Count 2.80 L Hemoglobin 8.5 L Hematocrit 25.5 L Mean Corpuscular Volume 91.1 Mean Corpuscular Hemoglobin 30.4 Mean Corpuscular Hemoglobin Concent 33.3 Red Cell Distribution Width 17.8 H Platelet Count 257 # Mean Platelet Volume 8.8 Neutrophils % 80.4 H Lymphocytes % 10.1 L Monocytes % 8.0 Eosinophils % 0.1 Basophils % 0.1 Nucleated Red Blood Cells % 0.0 Neutrophils # 8.3 H Lymphocytes # 1.1 Monocytes # 0.8 Eosinophils # 0.0 Basophils # 0.0 Nucleated Red Blood Cells # 0.0 Bedside Glucose 164 144 Sodium Level 127 L Potassium Level 4.0 Chloride Level 97 Carbon Dioxide Level 22 Anion Gap 12 Blood Urea Nitrogen 11 Creatinine 0.41 L Glucose Level 143 Calcium Level 7.9 L Total Bilirubin 0.4 Direct Bilirubin 0.00 Indirect Bilirubin 0.4 Aspartate Amino Transf (AST/SGOT) 38 Alanine Aminotransferase (ALT/SGPT) 36 Alkaline Phosphatase 1039 H Troponin I 0.020 Total Protein 5.2 L Albumin 2.9 L Globulin 2.30 Albumin/Globulin Ratio 1.26 Test 08/11/16 12:45 08/11/16 13:50 Hemoglobin 8.3 L Hematocrit 25.1 L Bedside Glucose 212 Medications Medications Current Medications Diltiazem HCl (Cardizem Iv) 5 mg Q6H PRN IV ELEVATED HEART RATE; Start 08/10/16 at 03:45 Pantoprazole (Protonix Iv) 40 mg DAILY@06 IV Last administered on 08/11/16 05: 27; Admin Dose 40 MG; Start 08/10/16 at 06:00 Enoxaparin Sodium (Lovenox) 40 mg DAILY SC Last administered on 08/11/16 08:29 ; Admin Dose 40 MG; Start 08/10/16 at 09:00 Acetaminophen (Tylenol Supp) [address] FEVER; Start 08/10/16 at 03:00 Insulin Aspart (Novolog Insulin Pen) NOVOLOG *MILD* ALGORI... Q4 SC Last administered on 08/11/16 13:55; Admin Dose 2 UNIT; Start 08/10/16 at 05:00 Miscellaneous Information 1 ea NOTE XX ; Start 08/10/16 at 03:45 Glucose (Glutose) 15 gm Q15M PRN PO DECREASED GLUCOSE; Start 08/10/16 at 03:45 Glucose (Glutose) 22.5 gm Q15M PRN PO DECREASED GLUCOSE; Start 08/10/16 at 03:45 Dextrose (D50w Syringe) 25 ml Q15M PRN IV DECREASED GLUCOSE; Start 08/10/16 at 03:45 Dextrose (D50w Syringe) 50 ml Q15M PRN IV DECREASED GLUCOSE; Start 08/10/16 at 03:45 Glucagon (Glucagen) 1 mg Q15M PRN IM DECREASED GLUCOSE; Start 08/10/16 at 03:45 Glucose (Glutose) 15 gm Q15M PRN BUCCAL DECREASED GLUCOSE; Start 08/10/16 at 03: 45 [facility]isc[facility] This patient melendez... PRN PRN XX WOUND CARE; Start 08/10/16 at 12:00 Aspirin (Aspirin) 325 mg DAILY PO Last administered on 08/11/16 08:27; Admin Dose 325 MG; Start 08/10/16 at 14:30 Metoprolol Tartrate (Lopressor) 25 mg BID PO Last administered on 08/11/16 08: 28; Admin Dose 25 MG; Start 08/10/16 at 21:00 Amiodarone HCl (Cordarone) 200 mg BID PO Last administered on 08/11/16 08:28; Admin Dose 200 MG; Start 08/10/16 at 21:00 Metoprolol Tartrate (Lopressor) 5 mg Q4H PRN IV hr>110 hold sbp<100; Start 08/10 at 14:30 Lorazepam 0.5 mg 0.5 mg Q6H PRN IV ANXIETY Last administered on 08/11/16 01:30 ; Admin Dose 0.5 MG; Start 08/10/16 at 23:30 Vancomycin HCl (Vancocin) 250 ml @ 125 mls/hr Q24H IVPB ; Start 08/12/16 at 01: 00 KARLENE MUÑOZ MD Aug 11, 2016 15:38
--- NOTE | 2016-08-11 16:03 | PN ---
Date/Time of Note Date/Time of Note DATE: 08/11/16 TIME: 15:56 Assessment/Plan VTE Prophylaxis VTE Prophylaxis Intervention: other Lines/Catheters IV [facility]ter Type (from [facility]): Peripheral IV Urinary Cath still in place: Yes Reason Cath still needed: urinary retention, other (indicate) (hematuria) Assessment/Plan Assessment/Plan - Hematuria - urology consult-Dr Huang notified - stat H/H= 8.3/25.1 -ASA, Lovenox dcd - am CBC - Urinary retention. - FC reinserted by Dr Huang - sp bladder scan- moncho. 1000 ml - Altered mental status, possible pneumonia. Continue patient on broad spectrum antibiotics. Monitor chest x-ray. - Paroxysmal atrial fibrillation. - per Dr. Ragsdale in cardiology consultation. - Continue to monitor patient on telemetry floor. - Hyponatremia. - per Dr. Howard in nephrology consultation. Continue intravenous fluids. - History of prostate carcinoma. - Diabetes mellitus. - Glycemic control - Hypertension- on Metoprolol Further recommendations depend on patient's clinical course. dw dr Gregory/ daughter/staff Subjective 24 Hr Interval Summary Free Text/Dictation NAD, resting in bed, confused , Daughter at bed side- all Qs answered.afebrile , restraints on, no agitation noted.dw staff- patient pulled Montesinos catheter last night and started bleeding. Morning staff did bladder scan that showed 1000 cc urine. Stat H/H, urology consult, restraints ordered dw staff-FC reinserted by Dr Huang- hematuria noted. Eyes: no complaints ENT: no complaints Respiratory: no complaints Cardiovascular: no complaints Exam/Review of Systems Vital Signs Vitals Vital Signs Date Time Temp Pulse Resp B/P Pulse Ox O2 Delivery O2 Flow Rate FiO2 08/11/16 12:21 71 08/11/16 11:37 98.1 18 159/65 96 08/10/16 01:07 Room Air 08/09/16 21:44 2 Intake and Output 08/10/16 08/10/16 08/11/16 15:00 23:00 07:00 Intake Total 480 ml 400 ml Output Total 500 ml 400 ml Balance -20 ml 0 ml Exam Constitutional: alert, well developed Psych: nl mood/affect Neck: non-tender, supple Respiratory: clear to auscultation, normal air movement Cardiovascular: nl pulses, regular rate and rhythm Gastrointestinal: non-tender, soft Genitourinary - Male: other (heamturia) Musculoskeletal: nl extremities to inspection Extremities: normal pulses Neurological: confused Skin: nl turgor Lymph: other Results Result Diagram: 08/11/16 1245 08/11/16 0610 Results 24 hrs Laboratory Tests Test 08/10/16 17:36 08/10/16 18:39 08/10/16 20:26 08/11/16 00:18 Bedside Glucose 166 265 H Troponin I 0.019 0.020 Test 08/11/16 05:00 08/11/16 05:26 08/11/16 06:10 08/11/16 08:30 White Blood Count 10.4 Red Blood Count 2.80 L Hemoglobin 8.5 L Hematocrit 25.5 L Mean Corpuscular Volume 91.1 Mean Corpuscular Hemoglobin 30.4 Mean Corpuscular Hemoglobin Concent 33.3 Red Cell Distribution Width 17.8 H Platelet Count 257 # Mean Platelet Volume 8.8 Neutrophils % 80.4 H Lymphocytes % 10.1 L Monocytes % 8.0 Eosinophils % 0.1 Basophils % 0.1 Nucleated Red Blood Cells % 0.0 Neutrophils # 8.3 H Lymphocytes # 1.1 Monocytes # 0.8 Eosinophils # 0.0 Basophils # 0.0 Nucleated Red Blood Cells # 0.0 Bedside Glucose 164 144 Sodium Level 127 L Potassium Level 4.0 Chloride Level 97 Carbon Dioxide Level 22 Anion Gap 12 Blood Urea Nitrogen 11 Creatinine 0.41 L Glucose Level 143 Calcium Level 7.9 L Total Bilirubin 0.4 Direct Bilirubin 0.00 Indirect Bilirubin 0.4 Aspartate Amino Transf (AST/SGOT) 38 Alanine Aminotransferase (ALT/SGPT) 36 Alkaline Phosphatase 1039 H Troponin I 0.020 Total Protein 5.2 L Albumin 2.9 L Globulin 2.30 Albumin/Globulin Ratio 1.26 Test 08/11/16 12:45 08/11/16 13:50 Hemoglobin 8.3 L Hematocrit 25.1 L Bedside Glucose 212 Medications Medications Current Medications Diltiazem HCl (Cardizem Iv) 5 mg Q6H PRN IV ELEVATED HEART RATE; Start 08/10/16 at 03:45 Pantoprazole (Protonix Iv) 40 mg DAILY@06 IV Last administered on 08/11/16t 05: 27; Admin Dose 40 MG; Start 08/10/16 at 06:00 Enoxaparin Sodium (Lovenox) 40 mg DAILY SC Last administered on 08/11/16 08:29 ; Admin Dose 40 MG; Start 08/10/16 at 09:00 Acetaminophen (Tylenol Supp) 500 mg Q6H PRN [place] FEVER; Start 08/10/16 at 03:00 Insulin Aspart (Novolog Insulin Pen) NOVOLOG *MILD* ALGORI... Q4 SC Last administered on 08/11/16 13:55; Admin Dose 2 UNIT; Start 08/10/16 at 05:00 Miscellaneous Information 1 ea NOTE XX ; Start 08/10/16 at 03:45 Glucose (Glutose) 15 gm Q15M PRN PO DECREASED GLUCOSE; Start 08/10/16 at 03:45 Glucose (Glutose) 22.5 gm Q15M PRN PO DECREASED GLUCOSE; Start 08/10/16 at 03:45 Dextrose (D50w Syringe) 25 ml Q15M PRN IV DECREASED GLUCOSE; Start 08/10/16 at 03:45 Dextrose (D50w Syringe) 50 ml Q15M PRN IV DECREASED GLUCOSE; Start 08/10/16 at 03:45 Glucagon (Glucagen) 1 mg Q15M PRN IM DECREASED GLUCOSE; Start 08/10/16 at 03:45 Glucose (Glutose) 15 gm Q15M PRN BUCCAL DECREASED GLUCOSE; Start 08/10/16 at 03: 45 Miscellaneous Information (Pending [facility] Order For Wound Care) This patient melendez... PRN PRN XX WOUND CARE; Start 08/10/16 at 12:00 Aspirin (Aspirin) 325 mg DAILY PO Last administered on 08/11/16 08:27; Admin Dose 325 MG; Start 08/10/16 at 14:30 Metoprolol Tartrate (Lopressor) 25 mg BID PO Last administered on 08/11/16 08: 28; Admin Dose 25 MG; Start 08/10/16 at 21:00 Amiodarone HCl (Cordarone) 200 mg BID PO Last administered on 08/11/16 08:28; Admin Dose 200 MG; Start 08/10/16 at 21:00 Metoprolol Tartrate (Lopressor) 5 mg Q4H PRN IV hr>110 hold sbp<100; Start 08/10 at 14:30 Lorazepam 0.5 mg 0.5 mg Q6H PRN IV ANXIETY Last administered on 08/11/16t 01:30 ; Admin Dose 0.5 MG; Start 08/10/16 at 23:30 Vancomycin HCl (Vancocin) 250 ml @ 125 mls/hr Q24H IVPB ; Start 08/12/16 at 01: 00 BIBIANA DUKE Aug 11, 2016 16:03
--- NOTE | 2016-08-11 16:57 | CONS ---
DATE OF ADMISSION: 08/09/2016 DATE OF CONSULTATION: 08/11/2016 REQUESTING PHYSICIAN: Navid Gregory MD Dear Dr. Gregory: Thank you for asking me to help in the care of . This is a very well known to me. I hav e been taking care of him since 2009. He is an 86-year-old. He was diagnosed with prostate cancer in 2008 at [facility]. There he was started on Lupron Depot and when I saw him we continue him on the Lupron Depot and he did do well. Then in 2014 we stopped the Lupron. The last dose of L upron was for 3 months on 06/20/2014. His PSA was around 1.7 to 2.3, so we decided to stop it. Then I have not seen him until again March of 2016. He came in to me and he was complaining of back p ain, and he apparently went to the emergency room at [facility], where he was told that it was a virus. He was complaining of pain in his knees and cannot walk well. He was complaining of n octuria about 9 to 10 times and during the day he voided every 2 to 3 hours. He does have urgency a nd urgency incontinence. He is known to have a history of diabetes and hypertension. Because of at, I went ahead and checked his prostate and his PSA was up to 205. Because of that, we did go ahe ad and resume the Lupron injection. We got a bone scan and that unfortunately did show diffuse osse ous metastasis involving the axial, and to a lesser degree, the appendicular skeleton. Therefore, t he patient again was restarted on Lupron on May 14. That was for 3 months, and his next injectio n is due on August 14. The patient also was seen by Dr. Sinclair and Dr. Sinclair was going to put him on Zometa. The patient was brought to the [facility] because of a decreased appetite, nausea and mental alterations. He was found to have hyponatremia and therefore he was admitted to the hosp [facility]. The patient apparently had a Montesinos catheter put in and, according to the nursing staff, he pu lled it out the first time and he pulled it out the second time, causing him to bleed a lot. From w hat I have noticed, most likely the second catheter that he had, and I am not sure about the first o ne, the second catheter was not all the way inside the bladder. Most likely the balloon was inflate d into the prostatic fossa and it was bothering him and hurting him and that is why he pulled it out with the balloon inflated. The emergency room notes, as well as H and P, states that he had prosta te cancer that is untreated, which is incorrect; the prostate cancer is being treated. As I mention ed, he did have 1 injection of Lupron Depot on May 14 of this year and he is due to have his next one around August 14. OTHER PAST MEDICAL HISTORY: As mentioned, he has a history of hypertension, dyslipidemia, and diabe livia. PAST SURGICAL HISTORY: Includes a history of appendectomy in February of 2009, cataract surgery in January of 2009 as well. He has been diabetic for over 22 years. He also has had heart problems fo r many years and has been seeing a webbing tacker for that. He denies any gastrointestinal diseases. SOCIAL HISTORY: He does not smoke or drink alcohol. ALLERGIES: THERE IS NO HISTORY OF DRUG ALLERGIES. MEDICATIONS: Presently while in the hospital he is on: 1. Vancomycin. 2. Lorazepam. In fact they gave him Lorazepam last night and he got confused. 3. Lopressor. 4. Amiodarone. 5. Aspirin. 6. Metoprolol. 7. Lovenox. 8. Protonix. PHYSICAL EXAMINATION: GENERAL: Reveals an elderly male. He weighs 69.3 kilograms. He is 66 inches tall. VITAL SIGNS: His temperature is 98.1, the pulse is 71, respirations 18, blood pressure 159/65. ABDOMEN: Shows that the bladder is distended and he has scars from prior surgeries for the appendix . GENITOURINARY: The patient does have bleeding from his urethra. The testes are a little atrophic. RECTAL EXAMINATION: He does have a large prostate and it is hard, more on the left side. EXTREMITIES: No edema. LABORATORY DATA: His CBC shows a white count of 9.4 on admission, hemoglobin 9.9, hematocrit 28.9, platelet count 210,000. Electrolytes: Sodium 127, potassium 4.0, chloride 97, CO2 22, BUN 11, creati nine 0.41. The PT is 16.2, INR 1.29. Urinalysis at the time of admission showed a trace of occult blood, 10 to 25 RBCs, and the color was yellow. The patient had a CT of the brain and shows no acute intracranial abnormality. Severe chronic-appea ring microvascular ischemic changes of the supratentorial white matter. Also partially visualized a bnormal sclerosis involving the clivus, occipital bone, both mandibular condyles and suspected withi n the C1 vertebra. Differential considerations include Paget's disease, radiation therapy changes, osseous metastases, or other systemic bone disease. The patient did have a bone scan, like Perico candelaria, and it showed skeletal metastasis, so there is no need to repeat the bone scan. Chest x-ray was done. It shows a diffuse irregular density of the osseous structures, suspicious fo r osseous metastatic disease. IMPRESSION: Metastatic prostate cancer. The patient also does have gross hematuria, most likely re lated to the pulling of his Montesinos catheter with the balloon inflated, and I am not sure if any traum atic catheterization. PLAN: I did go ahead and initially tried to put a 20 Martiniquais 30-mL balloon Montesinos catheter, but that would not go into the bladder because of a false passage, most likely from the prior catheter. Then I tried a 16-Martiniquais catheter. It would not go in. I tried a 16-Martiniquais coude catheter. It would no t go in. And I believe all of these because of a false passage that the patient has from prior cath eterization. I tried with the filiform and followers and after some manipulation I was able to get the filiform into the bladder and I was able to dilate his urethra from 8-Martiniquais to #22 Martiniquais, and there was not much resistance to indicate scar tissue or stricture, but that goes along with more of a false passage that he has had. Then after I did the dilatation I was able to put the 16-Martiniquais c oude catheter and the urine that drained had some blood tinge in it, but mostly clear to blood-tinge d, and the balloon was inflated with 10 mL of sterile water and connected to a drainage bag. I will follow his urological problem with you. I recommend that you ask Dr. Sinclair to see him as well joselyn anderson he has seen him before and she was going to start him on Zometa. If the patient stays here in the hospital, then we could order 7.5 mg of Lupron Depot injection for him. Otherwise we will try to g et it for him in the office and give it to him. I do thank you for allowing me to help in his care. Dictated By: ANGELA GRANT/CHERRY Conf#: [id number] DID#: [id number]
[2016-08-12] VITALS (14 sets, daily range): BP systolic 120–154; BP diastolic 58–88; PULSE 58–95; RESP 16–19
[2016-08-12] MEDS: VANCOMYCIN 1 GM in NS 250 ML IVPB SCH (01:14)
[2016-08-12] MEDS: INSULIN ASPART [NOVOLOG] 3 ML PEN SC SCH ×6 (01:24→21:34)
[2016-08-12] MEDS: PANTOPRAZOLE 40 MG INJ IV SCH (05:43)
[2016-08-12 07:06] LABS: ADD SCAN DIFF NO
[2016-08-12 07:17] LABS: ABNORMAL IP MESSAGE 1; HEMATOCRIT 20.4 % (42.0-52.0); MEAN CORPUSCULAR HEMOGLOBIN 30.9 pg (29.0-33.0); MEAN CORPUSCULAR HGB CONC 33.8 g/dl (32.0-37.0); MEAN CORPUSCULAR VOLUME 91.5 fl (82.0-101.0); MEAN PLATELET VOLUME 8.9 fl (7.4-10.4); PLATELET COUNT 235 10^3/UL (140-415); RED BLOOD COUNT 2.23 10^6/ul (4.70-6.10); RED CELL DISTRIBUTION WIDTH 17.7 % (11.5-14.5); WHITE BLOOD COUNT 10.1 10^3/ul (4.8-10.8)
[2016-08-12 07:25] LABS: CALCIUM 7.9 mg/dl (8.4-10.2); CREATININE 0.43 mg/dl (0.61-1.24)
[2016-08-12 08:01] LABS: HEMOGLOBIN 6.9 g/dl (14.0-18.0)
[2016-08-12] MEDS: AMIODARONE 200 MG TAB PO SCH ×2 (08:47→21:29)
[2016-08-12] MEDS: METOPROLOL 25 MG TAB PO SCH ×2 (08:47→21:30)
--- NOTE | 2016-08-12 08:54 | RADRPT ---
Vent Rate: 85 bpm RR Interval: 0 msec MA Interval: 214 msec QRS Duration: 84 msec QT Interval: 392 msec QTC Interval: 466 msec P-R-T [place]: 61 - 49 - 45 degrees Sinus rhythm with marked sinus arrhythmia with 1st degree AV block Otherwise normal ECG Electronically Signed By: Marek Aguilar [id number]
[2016-08-12 09:19] LABS: BASOPHIL # 0.1 10^3/ul (0.0-0.1); LYMPHOCYTES # 0.9 10^3/ul (0.8-2.9); MONOCYTE # 0.2 10^3/ul (0.3-0.9); NEUTROPHIL # 8.9 10^3/ul (1.6-7.5)
[2016-08-12 09:20] LABS: PLATELET ESTIMATE PLT APPEAR ADEQUATE
--- NOTE | 2016-08-12 11:25 | CONS ---
Date/Time of Note Date/Time of Note DATE: 08/12/16 TIME: 11:23 Assessment/Plan Assessment/Plan Additional Assessment/Plan 1. Parox a. fib - in sinus now, rate controlled, con't to follow - SINUS NOW 1. Severe hyponatremia with a sodium 114 on admission - renal team follow, rx as needed - BETTER 2. Acute metabolic encephalopathy and fall at home secondary to severe hyponatremia- still confused, gfamily at bedside 3. Hypovolemic hyponatremia versus syndrome of inappropriate diuretic hormone. 4. Hypertension- well Rx, con't to follow - not taking po meds now. 5. Hyperlipidemia. 6. History of prostate carcinoma- no intervention palnned now 7. History of diabetes mellitus - on meds, keep euglycemic. 8. History of bilateral knee arthritis. Consultation Date/Type/Reason Admit Date/Time Aug 09, 2016 at 23:11 Type of Consultation: NEPHROLOGY Referring Provider: CHANELLE PAUL MD 24 HR Interval Summary Free Text/Dictation NO acute events - BP in good range - no CP noted ROS: No fever, no chills, no nausea, no vomiting, no diarrhea/constipation No recent weight changes No chest pain, no PND, no orthopnea No dizziness, blurred vision No thirst, no heat or cold intolerance (per nurse) CONFUSED , Exam/Review of Systems Vital Signs Vitals Vital Signs Date Time Temp Pulse Resp B/P Pulse Ox O2 Delivery O2 Flow Rate FiO2 08/12/16 08:09 82 08/12/16 08:03 98.0 18 129/60 98 08/12/16 06:15 Room Air Nasal Cannula 08/11/16 21:38 2.0 Intake and Output 08/11/16 08/11/16 08/12/16 14:59 22:59 06:59 Intake Total 650 ml 350 ml Output Total 350 ml 650 ml Balance 300 ml -300 ml Exam General: WN/WD/NAD, AOx 0 enceph HEENT: Unicetric/atraumatic/EOMI (does not follow commands) NECK: JVD elevated, no thyromegaly Lymph: no lymphadenopathy HEART: regular with no S3, II/ systolic murmur at apex LUNGS: Coarse sounds ABD: soft, NT, ND, +BS : Intact Neuro: non focal SKIN: chronic changes EXT: trace edema Results Result Diagram: 08/12/1660408/12/16604 Results 24 hrs Laboratory Tests Test 08/11/16 12:45 08/11/16 13:50 08/11/16 15:18 08/11/16 17:23 Hemoglobin 8.3 L Hematocrit 25.1 L Bedside Glucose 212 281 H Sodium Level 125 L Prostate Specific Antigen 892.0 H Test 08/11/16 20:25 08/11/16 20:55 08/12/16 00:20 08/12/16 05:42 Bedside Glucose 273 H 230 H 161 Sodium Level 125 L Test 08/12/16 06:05 08/12/16 08:51 White Blood Count 10.1 Red Blood Count 2.23 #L Hemoglobin 6.9 *L Hematocrit 20.4 L Mean Corpuscular Volume 91.5 Mean Corpuscular Hemoglobin 30.9 Mean Corpuscular Hemoglobin Concent 33.8 Red Cell Distribution Width 17.7 H Platelet Count 235 Mean Platelet Volume 8.9 Neutrophils % 88.0 H Lymphocytes % 9.0 L Monocytes % 2.0 Basophils % 1.0 Nucleated Red Blood Cells % 1.0 H Neutrophils # 8.9 H Lymphocytes # 0.9 Monocytes # 0.2 L Basophils # 0.1 Platelet Estimate PLT APPEAR ADEQUATE Sodium Level 130 L Potassium Level 4.0 Chloride Level 100 Carbon Dioxide Level 24 Anion Gap 10 Blood Urea Nitrogen 11 Creatinine 0.43 L Glucose Level 161 Calcium Level 7.9 L Bedside Glucose 160 Medications Medications Current Medications Diltiazem HCl (Cardizem Iv) 5 mg Q6H PRN IV ELEVATED HEART RATE; Start 08/10/16 at 03:45 Pantoprazole (Protonix Iv) 40 mg DAILY@06 IV Last administered on 08/12/16 05: 43; Admin Dose 40 MG; Start 08/10/16 at 06:00 Acetaminophen (Tylenol Supp) 500 mg Q6H PRN [place] FEVER; Start 08/10/16 at 03:00 Insulin Aspart (Novolog Insulin Pen) NOVOLOG *MILD* ALGORI... Q4 SC Last administered on 08/12/16 08:56; Admin Dose 1 UNIT; Start 08/10/16 at 05:00 Miscellaneous Information 1 ea NOTE XX ; Start 08/10/16 at 03:45 Glucose (Glutose) 15 gm Q15M PRN PO DECREASED GLUCOSE; Start 08/10/16 at 03:45 Glucose (Glutose) 22.5 gm Q15M PRN PO DECREASED GLUCOSE; Start 08/10/16 at 03:45 Dextrose (D50w Syringe) 25 ml Q15M PRN IV DECREASED GLUCOSE; Start 08/10/16 at 03:45 Dextrose (D50w Syringe) 50 ml Q15M PRN IV DECREASED GLUCOSE; Start 08/10/16 at 03:45 Glucagon (Glucagen) 1 mg Q15M PRN IM DECREASED GLUCOSE; Start 08/10/16 at 03:45 Glucose (Glutose) 15 gm Q15M PRN BUCCAL DECREASED GLUCOSE; Start 08/10/16 at 03: 45 [facility] This patient melendez... PRN PRN XX WOUND CARE; Start 08/10/16 at 12:00 Metoprolol Tartrate (Lopressor) 25 mg BID PO Last administered on 08/12/16 08: 47; Admin Dose 25 MG; Start 08/10/16 at 21:00 Amiodarone HCl (Cordarone) 200 mg BID PO Last administered on 08/12/16 08:47; Admin Dose 200 MG; Start 08/10/16 at 21:00 Metoprolol Tartrate (Lopressor) 5 mg Q4H PRN IV hr>110 hold sbp<100; Start 08/10 at 14:30 Lorazepam 0.5 mg 0.5 mg Q6H PRN IV ANXIETY Last administered on 08/11/16 01:30 ; Admin Dose 0.5 MG; Start 08/10/16 at 23:30 Vancomycin HCl (Vancocin) 250 ml @ 125 mls/hr Q24H IVPB Last administered on 01:14; Admin Dose 125 MLS/HR; Start 08/12/16 at 01:00 KIT FAYE MD Aug 12, 2016 11:25
--- NOTE | 2016-08-12 14:35 | CONS ---
Date/Time of Note Date/Time of Note DATE: 08/12/16 TIME: 14:32 Assessment/Plan Assessment/Plan Additional Assessment/Plan 1. Severe hyponatremia with a sodium 114 on admission. 2. Acute metabolic encephalopathy and fall at home secondary to severe hyponatremia. 3. Hypovolemic hyponatremia versus syndrome of inappropriate diuretic hormone. 4. Hypertension. 5. Hyperlipidemia. 6. History of prostate carcinoma. 7. History of diabetes mellitus. 8. History of bilateral knee arthritis. Plan: S/p 3 % saline,and S/p one dose of tolvaptan 15 gram PO x 1 dose, Na 130 will follow up on AM labs Other care as per PMD Consultation Date/Type/Reason Admit Date/Time Aug 09, 2016 at 23:11 Type of Consultation: NEPHROLOGY Referring Provider: CHANELLE PAUL MD 24 HR Interval Summary Free Text/Dictation Na 130. pt awake but still intermittently confused Exam/Review of Systems Vital Signs Vitals Vital Signs Date Time Temp Pulse Resp B/P Pulse Ox O2 Delivery O2 Flow Rate FiO2 08/12/16 12:06 58 08/12/16 12:06 98.0 18 120/58 98 08/12/16 06:15 Room Air Nasal Cannula 08/11/16 21:38 2.0 Intake and Output 08/11/16 08/11/16 08/12/16 15:00 23:00 07:00 Intake Total 650 ml 350 ml Output Total 350 ml 650 ml Balance 300 ml -300 ml Exam GENERAL: Awake, but confused HEENT: Normal. Oropharynx clear. NECK: Supple, no JVD, no lymphadenopathy. LUNGS: Clear to auscultation. No crackles, no wheezes. HEART: S1, S2, with regular rhythm, no murmur. ABDOMEN: Soft, nontender, nondistended. Bowel sounds are present. EXTREMITIES: No clubbing, cyanosis, or edema. Montesinos catheter in place. NEUROLOGICAL: Alert, awake but not oriented to the place, person and time. Not cooperative for a full neurological exam. Results Result Diagram: 08/12/1660408/12/16604 Results 24 hrs Laboratory Tests Test 08/11/16 15:18 08/11/16 17:23 08/11/16 20:25 08/11/16 20:55 Sodium Level 125 L 125 L Prostate Specific Antigen 892.0 H Bedside Glucose 281 H 273 H Test 08/12/16 00:20 08/12/16 05:42 08/12/16 06:05 08/12/16 08:51 Bedside Glucose 230 H 161 160 White Blood Count 10.1 Red Blood Count 2.23 #L Hemoglobin 6.9 *L Hematocrit 20.4 L Mean Corpuscular Volume 91.5 Mean Corpuscular Hemoglobin 30.9 Mean Corpuscular Hemoglobin Concent 33.8 Red Cell Distribution Width 17.7 H Platelet Count 235 Mean Platelet Volume 8.9 Neutrophils % 88.0 H Lymphocytes % 9.0 L Monocytes % 2.0 Basophils % 1.0 Nucleated Red Blood Cells % 1.0 H Neutrophils # 8.9 H Lymphocytes # 0.9 Monocytes # 0.2 L Basophils # 0.1 Platelet Estimate PLT APPEAR ADEQUATE Sodium Level 130 L Potassium Level 4.0 Chloride Level 100 Carbon Dioxide Level 24 Anion Gap 10 Blood Urea Nitrogen 11 Creatinine 0.43 L Glucose Level 161 Calcium Level 7.9 L Test 08/12/16 12:04 08/12/16 12:19 Bedside Glucose 280 H Lab Scanned Report REFERENCE LAB Medications Medications Current Medications Diltiazem HCl (Cardizem Iv) 5 mg Q6H PRN IV ELEVATED HEART RATE; Start 08/10/16 at 03:45 Pantoprazole (Protonix Iv) 40 mg DAILY@06 IV Last administered on 08/12/16 05: 43; Admin Dose 40 MG; Start 08/10/16 at 06:00 Acetaminophen (Tylenol Supp) 500 mg Q6H PRN [place] FEVER; Start 08/10/16 at 03:00 Insulin Aspart (Novolog Insulin Pen) NOVOLOG *MILD* ALGORI... Q4 SC Last administered on 08/12/16 12:10; Admin Dose 4 UNIT; Start 08/10/16 at 05:00 Miscellaneous Information 1 ea NOTE XX ; Start 08/10/16 at 03:45 Glucose (Glutose) 15 gm Q15M PRN PO DECREASED GLUCOSE; Start 08/10/16 at 03:45 Glucose (Glutose) 22.5 gm Q15M PRN PO DECREASED GLUCOSE; Start 08/10/16 at 03:45 Dextrose (D50w Syringe) 25 ml Q15M PRN IV DECREASED GLUCOSE; Start 08/10/16 at 03:45 Dextrose (D50w Syringe) 50 ml Q15M PRN IV DECREASED GLUCOSE; Start 08/10/16 at 03:45 Glucagon (Glucagen) 1 mg Q15M PRN IM DECREASED GLUCOSE; Start 08/10/16 at 03:45 Glucose (Glutose) 15 gm Q15M PRN BUCCAL DECREASED GLUCOSE; Start 08/10/16 at 03: 45 Miscellaneous Information (Pending [facility] Order For Wound Care) This patient melendez... PRN PRN XX WOUND CARE; Start 08/10/16 at 12:00 Metoprolol Tartrate (Lopressor) 25 mg BID PO Last administered on 08/12/16 08: 47; Admin Dose 25 MG; Start 08/10/16 at 21:00 Amiodarone HCl (Cordarone) 200 mg BID PO Last administered on 08/12/16 08:47; Admin Dose 200 MG; Start 08/10/16 at 21:00 Metoprolol Tartrate (Lopressor) 5 mg Q4H PRN IV hr>110 hold sbp<100; Start 08/10 at 14:30 Lorazepam 0.5 mg 0.5 mg Q6H PRN IV ANXIETY Last administered on 08/11/16 01:30 ; Admin Dose 0.5 MG; Start 08/10/16 at 23:30 Vancomycin HCl (Vancocin) 250 ml @ 125 mls/hr Q24H IVPB Last administered on 01:14; Admin Dose 125 MLS/HR; Start 08/12/16 at 01:00 Insulin Glargine (Lantus) 10 unit DAILY@20 SC ; Start 08/12/16 at 20:00 KARLENE MUÑOZ MD Aug 12, 2016 14:35
--- NOTE | 2016-08-12 14:59 | CONS ---
Date/Time of Note Date/Time of Note DATE: 08/12/16 TIME: 14:37 Assessment/Plan Assessment/Plan Chief Complaint/Hosp Course The patient is an 86 year old male with: # Metastatic prostate cancer, hormone sensitive disease - Continue Lupron, due approximately August 14. Appreciate Dr. Huang's recommendations. Agree that if the patient stays here in the hospital, then we could order Lupron for him. Otherwise we will try to get it for him in the office and give it to him. - Will give one dose of zometa while in house 4 mg over 15 minutes - PSA elevated to 892, pending testosterone level - If at some point he is determined to be hormone refractory then will consider abiraterone, or enzalutamide # Altered mental status, CT head unrevealing, consider MRI brain. May be multifactorial due to hyponatremia, pain medications or other (per nurse, last given Ativan the night before last), infection (UTI/pneumonia/bacteremia), rule out brain mets - Will obtain MRI brain # Generalized weakness, may be due to infection, however given weakness, back pain, urinary retention/incontinence, would want to rule out cord involvement given diffuse osseous metastatic disease - Outpatient bone scan 05/16/16 revealed diffuse osseous metastatic disease - Will obtain MRI C/T/L spine # Urinary retention, appreciate Dr. Huang recommendations. # Anemia, likely related to chronic inflammation plus possible bone marrow involvement with nucleated RBCs, plus gross hematuria - Hgb today 6.9, will receive 2 units pRBCs - will send iron panel, ferritin, B12/folate, TSH, homocysteine, methylmalonic acid, LDH, retic, haptoglobin # Left upper extremity swelling, Dr. Sinclair had wanted to check a left upper extremity US to rule out DVT - Lower extremity dopplers showed 1. No right lower extremity DVT. 2. 3.7 cm Parker's cyst in the popliteal fossa. Problems: Consultation Date/Type/Reason Admit Date/Time Aug 09, 2016 at 23:11 Date of Consultation: Aug 12, 2016 Type of Consultation: Oncology Reason for Consultation Metastatic prostate cancer Hx of Present Illness The patient is a 86 year old male well known to Dr. uHang who has been taking care of him since 2009. He was diagnosed with prostate cancer in 2008 at [facility]. There he was started on Lupron [place] and he did well but last received Lupron on 06/20/2014 as his PSA was around 1.7 to 2.3. He was lost to follow-up until March of [address] Huang with back pain, pain in his knees and difficulty ambulating. He was complaining of nocturia about 9 to 10 times and during the day he voided every 2 to 3 hours. His PSA at that time was up to 205. Because of that, Dr. Huang did go ahead and resumed the Lupron injection. We got a bone scan and that unfortunately did show diffuse osseous metastasis involving the axial, and to a lesser degree, the appendicular skeleton. Therefore, the patient again was restarted on Lupron on May 14. That was for 3 months, and his next injection is due on August 14. The patient also was seen by Dr. Sinclair and Dr. Sinclair was planning on starting Zometa but had not yet received it yet. The patient was brought to the [facility] because of a decreased appetite, weakness and altered mental status. He was found to have hyponatremia and therefore he was admitted to the hospital. The patient apparently had a Montesinos catheter put in for urinary retention and, according to the nursing staff, he pulled it out the first time and he pulled it out the second time, causing him to bleed a lot. He also has > 100K coag negative staph in his urine, LLL consolidation on CXR with possible pnuemonia and staph bacteremia on 08/09/16, currently on vancomycin. He is currently quite somnolent though arousable with stimuli. Per family, he has significant whole body pain, especially in the bones. He stopped walking about 2-3 months ago due to pain and is unsteady. He has diffuse whole body weakness and also has left arm weakness per family. Per his family, he became more confused after taking pain medications and became incontinent, then developed urinary retention. Per his family he is able to move his legs although has not been able to cooperate with physical exam. Eyes: no complaints ENT: no complaints Respiratory: no complaints Cardiovascular: no complaints Psychological: nl mood/affect Past Medical History Metastatic prostate cancer, hormone sensitive Diabetes, hypertension, osteoarthritis, BPH, hyperlipidemia Family History Significant Family History: cancer (Mother with esophageal cancer) Social History Alcohol Use: none Smoking Status: Never smoker Exam/Review of Systems Vital Signs Vitals Vital Signs Date Time Temp Pulse Resp B/P Pulse Ox O2 Delivery O2 Flow Rate FiO2 08/12/16 12:06 58 08/12/16 12:06 98.0 18 120/58 98 08/12/16 06:15 Room Air Nasal Cannula 08/11/16 21:38 2.0 Intake and Output 08/11/16 08/11/16 08/12/16 15:00 23:00 07:00 Intake Total 650 ml 350 ml Output Total 350 ml 650 ml Balance 300 ml -300 ml Exam GENERAL: Somnolent HEENT: Normal. NECK: Supple, no JVD, no lymphadenopathy. LUNGS: Clear to auscultation. No crackles, no wheezes. HEART: S1, S2, with regular rhythm, no murmur. ABDOMEN: Soft, nontender, nondistended. Bowel sounds are present. EXTREMITIES: No clubbing, cyanosis, or edema. Montesinos catheter in place. NEUROLOGICAL: Alert, awake but not oriented to the place, person and time. Not cooperative for a full neurological exam. Results Result Diagram: 08/12/1660408/12/16604 Results 24 hrs Laboratory Tests Test 08/11/16 15:18 08/11/16 17:23 08/11/16 20:25 08/11/16 20:55 Sodium Level 125 L 125 L Prostate Specific Antigen 892.0 H Bedside Glucose 281 H 273 H Test 08/12/16 00:20 08/12/16 05:42 08/12/16 06:05 08/12/16 08:51 Bedside Glucose 230 H 161 160 White Blood Count 10.1 Red Blood Count 2.23 #L Hemoglobin 6.9 *L Hematocrit 20.4 L Mean Corpuscular Volume 91.5 Mean Corpuscular Hemoglobin 30.9 Mean Corpuscular Hemoglobin Concent 33.8 Red Cell Distribution Width 17.7 H Platelet Count 235 Mean Platelet Volume 8.9 Neutrophils % 88.0 H Lymphocytes % 9.0 L Monocytes % 2.0 Basophils % 1.0 Nucleated Red Blood Cells % 1.0 H Neutrophils # 8.9 H Lymphocytes # 0.9 Monocytes # 0.2 L Basophils # 0.1 Platelet Estimate PLT APPEAR ADEQUATE Sodium Level 130 L Potassium Level 4.0 Chloride Level 100 Carbon Dioxide Level 24 Anion Gap 10 Blood Urea Nitrogen 11 Creatinine 0.43 L Glucose Level 161 Calcium Level 7.9 L Test 08/12/16 12:04 08/12/16 12:19 Bedside Glucose 280 H Lab Scanned Report REFERENCE LAB Medications Medications Current Medications Diltiazem HCl (Cardizem Iv) 5 mg Q6H PRN IV ELEVATED HEART RATE; Start 08/10/16 at 03:45 Pantoprazole (Protonix Iv) 40 mg DAILY@06 IV Last administered on 08/12/16 05: 43; Admin Dose 40 MG; Start 08/10/16 at 06:00 Acetaminophen (Tylenol Supp) 500 mg Q6H PRN [place] FEVER; Start 08/10/16 at 03:00 Insulin Aspart (Novolog Insulin Pen) NOVOLOG *MILD* ALGORI... Q4 SC Last administered on 08/12/16 12:10; Admin Dose 4 UNIT; Start 08/10/16 at 05:00 Miscellaneous Information 1 ea NOTE XX ; Start 08/10/16 at 03:45 Glucose (Glutose) 15 gm Q15M PRN PO DECREASED GLUCOSE; Start 08/10/16 at 03:45 Glucose (Glutose) 22.5 gm Q15M PRN PO DECREASED GLUCOSE; Start 08/10/16 at 03:45 Dextrose (D50w Syringe) 25 ml Q15M PRN IV DECREASED GLUCOSE; Start 08/10/16 at 03:45 Dextrose (D50w Syringe) 50 ml Q15M PRN IV DECREASED GLUCOSE; Start 08/10/16 at 03:45 Glucagon (Glucagen) 1 mg Q15M PRN IM DECREASED GLUCOSE; Start 08/10/16 at 03:45 Glucose (Glutose) 15 gm Q15M PRN BUCCAL DECREASED GLUCOSE; Start 08/10/16 at 03: 45 Miscellaneous Information (Pending Santyl Order For Wound Care) This patient melendez... PRN PRN XX WOUND CARE; Start 08/10/16 at 12:00 Metoprolol Tartrate (Lopressor) 25 mg BID PO Last administered on 08/12/16 08: 47; Admin Dose 25 MG; Start 08/10/16 at 21:00 Amiodarone HCl (Cordarone) 200 mg BID PO Last administered on 08/12/16 08:47; Admin Dose 200 MG; Start 08/10/16 at 21:00 Metoprolol Tartrate (Lopressor) 5 mg Q4H PRN IV hr>110 hold sbp<100; Start 08/10 at 14:30 Lorazepam 0.5 mg 0.5 mg Q6H PRN IV ANXIETY Last administered on 08/11/16 01:30 ; Admin Dose 0.5 MG; Start 08/10/16 at 23:30 Vancomycin HCl (Vancocin) 250 ml @ 125 mls/hr Q24H IVPB Last administered on 01:14; Admin Dose 125 MLS/HR; Start 08/12/16 at 01:00 Insulin Glargine (Lantus) 10 unit DAILY@20 SC ; Start 08/12/16 at 20:00 TOHAROLDO MD Aug 12, 2016 14:47
[2016-08-12] MEDS ORDERED: FUROSEMIDE 20 MG INJ IV ONE (15:00)
--- NOTE | 2016-08-12 15:51 | PN ---
Date/Time of Note Date/Time of Note DATE: 08/12/16 TIME: 15:50 Assessment/Plan VTE Prophylaxis VTE Prophylaxis Intervention: other Lines/Catheters IV C[facility]ter Type (from [facility]): Peripheral IV Urinary Cath still in place: Yes Assessment/Plan Assessment/Plan - Hematuria- resolving - urology consult-Dr Huang notified - stat H/H= 8.3/25.1 -ASA, Lovenox dcd - am CBC - Urinary retention. - FC reinserted by Dr Huang - sp bladder scan- moncho. 1000 ml yesterday - Altered mental status, possible pneumonia. Continue patient on broad spectrum antibiotics. Monitor chest x-ray. - Paroxysmal atrial fibrillation. - per Dr. Ragsdale in cardiology consultation. - Continue to monitor patient on telemetry floor. - Hyponatremia. - per Dr. Howard in nephrology consultation. Continue intravenous fluids. - History of prostate carcinoma. - Diabetes mellitus. - Glycemic control - Hypertension- on Metoprolol Further recommendations depend on patient's clinical course. dw dr Gregory/ daughter/staff Subjective 24 Hr Interval Summary Respiratory: no complaints Cardiovascular: no complaints Genitourinary: hematuria Exam/Review of Systems Vital Signs Vitals Vital Signs Date Time Temp Pulse Resp B/P Pulse Ox O2 Delivery O2 Flow Rate FiO2 08/12/16 14:46 2.0 08/12/16 12:06 58 08/12/16 12:06 98.0 18 120/58 98 08/12/16 06:15 Room Air Nasal Cannula Intake and Output 08/11/16 08/11/16 08/12/16 15:00 23:00 07:00 Intake Total 650 ml 350 ml Output Total 350 ml 650 ml Balance 300 ml -300 ml Exam Constitutional: alert Respiratory: clear to auscultation, normal air movement Cardiovascular: nl pulses, regular rate and rhythm Gastrointestinal: non-tender, soft Genitourinary - Male: other Musculoskeletal: nl extremities to inspection Extremities: normal pulses Neurological: confused Skin: nl turgor Lymph: nontender Results Result Diagram: 08/12/16 0608/12/16604 Results 24 hrs Laboratory Tests Test 08/11/16 17:23 08/11/16 20:25 08/11/16 20:55 08/12/16 00:20 Bedside Glucose 281 H 273 H 230 H Sodium Level 125 L Test 08/12/16 05:42 08/12/16 06:05 08/12/16 08:51 08/12/16 12:04 Bedside Glucose 161 160 280 H White Blood Count 10.1 Red Blood Count 2.23 #L Hemoglobin 6.9 *L Hematocrit 20.4 L Mean Corpuscular Volume 91.5 Mean Corpuscular Hemoglobin 30.9 Mean Corpuscular Hemoglobin Concent 33.8 Red Cell Distribution Width 17.7 H Platelet Count 235 Mean Platelet Volume 8.9 Neutrophils % 88.0 H Lymphocytes % 9.0 L Monocytes % 2.0 Basophils % 1.0 Nucleated Red Blood Cells % 1.0 H Neutrophils # 8.9 H Lymphocytes # 0.9 Monocytes # 0.2 L Basophils # 0.1 Platelet Estimate PLT APPEAR ADEQUATE Sodium Level 130 L Potassium Level 4.0 Chloride Level 100 Carbon Dioxide Level 24 Anion Gap 10 Blood Urea Nitrogen 11 Creatinine 0.43 L Glucose Level 161 Calcium Level 7.9 L Test 08/12/16 12:19 Lab Scanned Report REFERENCE LAB Medications Medications Current Medications Diltiazem HCl (Cardizem Iv) 5 mg Q6H PRN IV ELEVATED HEART RATE; Start 08/10/16 at 03:45 Pantoprazole (Protonix Iv) 40 mg DAILY@06 IV Last administered on 08/12/16 05: 43; Admin Dose 40 MG; Start 08/10/16 at 06:00 Acetaminophen (Tylenol Supp) 500 mg Q6H PRN [place] FEVER; Start 08/10/16 at 03:00 Insulin Aspart (Novolog Insulin Pen) NOVOLOG *MILD* ALGORI... Q4 SC Last administered on 08/12/16 12:10; Admin Dose 4 UNIT; Start 08/10/16 at 05:00 Miscellaneous Information 1 ea NOTE XX ; Start 08/10/16 at 03:45 Glucose (Glutose) 15 gm Q15M PRN PO DECREASED GLUCOSE; Start 08/10/16 at 03:45 Glucose (Glutose) 22.5 gm Q15M PRN PO DECREASED GLUCOSE; Start 08/10/16 at 03:45 Dextrose (D50w Syringe) 25 ml Q15M PRN IV DECREASED GLUCOSE; Start 08/10/16 at 03:45 Dextrose (D50w Syringe) 50 ml Q15M PRN IV DECREASED GLUCOSE; Start 08/10/16 at 03:45 Glucagon (Glucagen) 1 mg Q15M PRN IM DECREASED GLUCOSE; Start 08/10/16 at 03:45 Glucose (Glutose) 15 gm Q15M PRN BUCCAL DECREASED GLUCOSE; Start 08/10/16 at 03: 45 [facility] This patient melendez... PRN PRN XX WOUND CARE; Start 08/10/16 at 12:00 Metoprolol Tartrate (Lopressor) 25 mg BID PO Last administered on 08/12/16 08: 47; Admin Dose 25 MG; Start 08/10/16 at 21:00 Amiodarone HCl (Cordarone) 200 mg BID PO Last administered on 08/12/16 08:47; Admin Dose 200 MG; Start 08/10/16 at 21:00 Metoprolol Tartrate (Lopressor) 5 mg Q4H PRN IV hr>110 hold sbp<100; Start 08/10 at 14:30 Lorazepam 0.5 mg 0.5 mg Q6H PRN IV ANXIETY Last administered on 08/11/16 01:30 ; Admin Dose 0.5 MG; Start 08/10/16 at 23:30 Vancomycin HCl (Vancocin) 250 ml @ 125 mls/hr Q24H IVPB Last administered on 01:14; Admin Dose 125 MLS/HR; Start 08/12/16 at 01:00 Insulin Glargine 10 unit 10 unit DAILY@20 SC ; Start 08/12/16 at 20:00 Zoledronic Acid/ Sodium Chloride (Zometa/NS) 105 ml @ 420 mls/hr ONCE ONCE IVPB ; Start 08/12/16 at 16:00; Stop 08/12/16 at 16:14 BIBIANA DUKE Aug 12, 2016 15:51
[2016-08-12] MEDS ORDERED: ZOLEDRONIC ACID 4 MG in SOD CHLORIDE 0.9% 100 ML IVPB ONE (16:00)
--- NOTE | 2016-08-12 17:20 | RADRPT ---
PROCEDURE: US bilateral upper extremity Venous. CLINICAL INDICATION: Bilateral upper extremity swelling TECHNIQUE: Multiple sonographic images of the bilateral upper lower extremity deep an superficial venous system was obtained utilizing grayscale, color-flow, compressive sonography and doppler imagi ng with augmentation. The images were reviewed on a PACS workstation. COMPARISON: None. FINDINGS: There is normal compressibility and flow within the bilateral internal jugular, subclavian, axillar y, brachial, radial and ulnar veins. The left upper cephalic and bilateral lower basilic veins are not well visualized. IMPRESSION: No sonographic evidence for venous thrombosis in the bilateral upper extremity deep venous system. RPTAT: HEKC .Garcia Ochoa MD, MD Date Time Electronically viewed and signed by .Garcia Ochoa MD, on 08/12/2016 17:20 .C/
[2016-08-12] MEDS: INSULIN GLARGINE [LANtus] 3 ML PEN SC SCH (21:35)
[2016-08-13] VITALS (17 sets, daily range): BP systolic 133–169; BP diastolic 61–73; PULSE 57–70; RESP 16–19
[2016-08-13] MEDS: VANCOMYCIN 1 GM in NS 250 ML IVPB SCH (01:26)
[2016-08-13] MEDS: INSULIN ASPART [NOVOLOG] 3 ML PEN SC SCH ×2 (01:32→05:34)
[2016-08-13] MEDS: PANTOPRAZOLE 40 MG INJ IV SCH (05:31)
[2016-08-13 07:08] LABS: ADD SCAN DIFF NO
[2016-08-13 07:15] LABS: BASOPHILS % 0.1 % (0.0-2.0); EOSINOPHILS # 0.1 10^3/ul (0.0-0.5); HEMATOCRIT 27.4 % (42.0-52.0); HEMOGLOBIN 9.2 g/dl (14.0-18.0); LYMPHOCYTES # 1.5 10^3/ul (0.8-2.9); LYMPHOCYTES % 19.3 % (15.0-51.0); MEAN CORPUSCULAR HEMOGLOBIN 29.7 pg (29.0-33.0); MEAN CORPUSCULAR HGB CONC 33.6 g/dl (32.0-37.0); MEAN CORPUSCULAR VOLUME 88.4 fl (82.0-101.0); MEAN PLATELET VOLUME 8.6 fl (7.4-10.4); MONOCYTE # 0.6 10^3/ul (0.3-0.9); MONOCYTES % 8.1 % (0.0-11.0); NEUTROPHIL # 5.5 10^3/ul (1.6-7.5); NEUTROPHILS % 70.4 % (39.0-77.0); NUCLEATED RED BLOOD CELLS # 0.1 10^3/ul (0.0-0.0); NUCLEATED RED BLOOD CELLS% 0.6 /100WBC (0.0-0.0); PLATELET COUNT 230 10^3/UL (140-415); RED CELL DISTRIBUTION WIDTH 18.4 % (11.5-14.5); WHITE BLOOD COUNT 7.9 10^3/ul (4.8-10.8)
[2016-08-13 07:45] LABS: RETICULOCYTE COUNT % 3.2 % (0.5-1.5)
[2016-08-13 07:57] LABS: CALCIUM 7.5 mg/dl (8.4-10.2); CREATININE 0.45 mg/dl (0.61-1.24); POTASSIUM 4.1 mmol/L (3.5-5.1)
[2016-08-13 07:58] LABS: LACTATE DEHYDROGENASE 612 IU/L (313-618)
[2016-08-13 08:32] LABS: IRON 33 ug/dl (35-150)
[2016-08-13 08:41] LABS: TOTAL IRON BINDING CAPACITY 202 ug/dl (241-421)
[2016-08-13 08:48] LABS: FOLATE 9.7 ng/ml (2.8-20.0)
[2016-08-13] MEDS: METOPROLOL 25 MG TAB PO SCH ×2 (09:05→20:22)
[2016-08-13] MEDS: AMIODARONE 200 MG TAB PO SCH ×2 (09:05→20:21)
--- NOTE | 2016-08-13 09:14 | CONS ---
DATE OF ADMISSION: 08/09/2016 DATE OF CONSULTATION: 08/10/2016 TYPE OF CONSULTATION: Cardiology REASON FOR CONSULTATION: Paroxysmal atrial flutter. REQUESTING PHYSICIAN: Chanelle Gregory MD HISTORY OF PRESENT ILLNESS: Mr. Abbott is an 86-year-old male with a history of prostate CA, diabetes mellitus, hypertension, prior ERCP with sphincterotomy and stent placement, appendectomy, positive tobacco usage, who initially presented with nausea, vomiting, altered mental state x2 days. Upon arrival, temperature 97.8, blood pressure 100/50, pulse 73, respiratory rate 18, saturating 98%. The patient's labs: White blood cell count of 9.4, hemoglobin 9.9, platelet count 210. Sodium of 117, potassium 4.2, creatinine 0.6, BUN 20, AST 69, AST 32. INR 1.29. UA positive. The patient underwent a venous ultrasound revealing no right lower extremity DVT, a _Baker's cyst in the popliteal fossa. The patient underwent a chest x-ray showing cardiomegaly and vascular congestion with small left effusion and left lower lung consolidation. He had a head CT revealed no acute intracranial abnormalities, severe chronic- appearing microvascular ischemic changes, MRI of the brain may be useful for further evaluation. Partially visualized abnormal sclerosis involving the clivus, occipital bone, both mandibular condyles. The patient's electrocardiogram revealed a rhythm most consistent with atrial flutter, variable block, rate of 108, normal axis, normal intervals, nonspecific ST-T abnormalities diffusely. The patient was subsequently admitted to the floor and since admit to floor, has had conversion to sinus rhythm. PAST MEDICAL HISTORY: As above in HPI. MEDICATIONS CURRENTLY IN HOSPITAL: 1. Lovenox 40mg_ daily. 2. Protonix 40 mg IV daily. 3. Insulin sliding scale. 4. Diltiazem. 5. Zofran p.r.n. 6. Tylenol p.r.n. ALLERGIES: NO KNOWN DRUG ALLERGIES. SOCIAL HISTORY: No tobacco, ETOH or illicit drug use. FAMILY HISTORY: No history of sudden cardiac or early CAD. REVIEW OF SYSTEMS: As above in HPI. CONSTITUTIONAL: No fevers, chills. PULMONARY: No current shortness of breath. CARDIOVASCULAR: Paroxysmal atrial flutter. GASTROINTESTINAL: Positive nausea, vomiting. GENITOURINARY: No hematuria. MUSCULOSKELETAL: Degenerative joint disease. PSYCHIATRIC: No documented psychiatric history. NEUROLOGIC: Altered mental state, encephalopathy. PHYSICAL EXAMINATION: VITAL SIGNS: Temperature 98.2, blood pressure 118/58, pulse 100, respiratory rate 18, saturating 97%. GENERAL: The patient is sleeping, easily arousable, confused. NECK: JVP approximately 9 cm of water. CHEST: Fair air movement throughout with mildly decreased breath sounds at bases bilaterally. HEART: Regular rate and rhythm. Normal S1, S2, I/ systolic murmur, nondisplaced PMI. ABDOMEN: Positive bowel sounds, soft. EXTREMITIES: No pitting edema, 1+ pulses bilaterally, posterior tibial. LABORATORY DATA: Most recently from today, sodium 122, potassium 4.0, creatinine 0.47, BUN of 14. White blood cell count 9.4, hemoglobin 9.9, platelet count 210. IMAGING STUDIES: As above in HPI. No further imaging studies for my review at this time. ECG: As above in HPI. No further electrocardiograms for my review at this time. IMPRESSION: 1. Paroxysmal atrial flutter, currently in sinus rhythm. 2. Abnl electrocardiogram, assess for acute coronary syndrome. 3. Congestive heart failure by chest x-ray, question systolic versus diastolic , likely acute on chronic. 4. Hypertension under reasonable control with episodes of borderline hypotension. 5. Altered mental state/encephalopathy. 6. Hyponatremia. 7. Urinary tract infection. 8. Anemia. RECOMMENDATIONS: 1. Would check serial EKGs to assess for any significant ongoing changes. EKG in the morning, EKG for any complaints of chest pain or change in rhythm. 2. At this time, would maintain the patient on telemetry monitoring to follow rhythm and rate closely and assess for any recurrent episodes of atrial flutter. 3. We will initiate patient on low-dose amiodarone at this time in an attempt to maintain sinus rhythm and will give the patient low-dose beta sabi to improve heart rate control in the event the patient does go back into atrial flutter. 4. We will initiate the patient on aspirin at this time for prophylaxis against thromboembolic events in the setting of paroxysmal atrial flutter and continue low-dose Lovenox. 5. Check a 2D echocardiogram to further assess patient's ejection fraction, wall motion and any major valve abnormalities. 6. Check a TSH to be sure that subclinical hypothyroidism is not contributing to any bouts of paroxysmal tachyarrhythmia. 7. Continue the patient's ongoing evaluation and treatment of hyponatremia per PMD and alternative renal consultation. 8. Continue to follow the patient's blood sugars closely. Additionally, we will complete a rule out myocardial infarction ____ the patient's symptoms have not resulted in acute coronary syndrome such as acute myocardial infarction. Thank you for allowing me to take part in the care of this patient. I will continue to follow very closely with you. Further recommendations will be made as the patient progresses through his inpatient hospital clinical course. Dictated By: ROSI MUÑOZ/CHERRY Conf#: [id number] DID#: [id number] CC: CHANELLE GREGORY MD;*EndCC* MTDD
--- NOTE | 2016-08-13 09:32 | CONS ---
Date/Time of Note Date/Time of Note DATE: 08/13/16 TIME: 09:30 Assessment/Plan Assessment/Plan Additional Assessment/Plan 1. Severe hyponatremia with a sodium 114 on admission. 2. Acute metabolic encephalopathy and fall at home secondary to severe hyponatremia. 3. Hypovolemic hyponatremia versus syndrome of inappropriate diuretic hormone. 4. Hypertension. 5. Hyperlipidemia. 6. History of prostate carcinoma. 7. History of diabetes mellitus. 8. History of bilateral knee arthritis. 9. Anemia, Iron deficiency,iron sat 16%, normal ferritin Plan: S/p 3 % saline,and S/p one dose of tolvaptan 15 gram PO x 1 dose, now Na 135 Iron saturation low but Ferritin good Other care as per PMD Consultation Date/Type/Reason Admit Date/Time Aug 09, 2016 at 23:11 Type of Consultation: NEPHROLOGY Referring Provider: CHANELLE PAUL MD Exam/Review of Systems Vital Signs Vitals Vital Signs Date Time Temp Pulse Resp B/P Pulse Ox O2 Delivery O2 Flow Rate FiO2 08/13/16 08:38 67 08/13/16 07:38 2.0 08/13/16 06:58 97.6 18 133/63 94 08/12/16 06:15 Room Air Nasal Cannula Intake and Output 08/12/16 08/12/16 08/13/16 15:00 23:00 07:00 Intake Total 700 ml 750 ml Output Total 800 ml 400 ml Balance -100 ml 350 ml Results Result Diagram: 08/13/16 0618 08/13/16 0618 Results 24 hrs Laboratory Tests Test 08/12/16 12:04 08/12/16 12:19 08/12/16 17:36 08/12/16 21:26 Bedside Glucose 280 H 301 H 263 H Lab Scanned Report REFERENCE LAB Test 08/13/16 01:07 08/13/16 05:29 08/13/16 06:18 08/13/16 09:00 Bedside Glucose 182 151 149 White Blood Count 7.9 # Red Blood Count 3.10 #L Hemoglobin 9.2 #L Hematocrit 27.4 #L Mean Corpuscular Volume 88.4 Mean Corpuscular Hemoglobin 29.7 Mean Corpuscular Hemoglobin Concent 33.6 Red Cell Distribution Width 18.4 H Platelet Count 230 Mean Platelet Volume 8.6 Neutrophils % 70.4 Lymphocytes % 19.3 Monocytes % 8.1 Eosinophils % 1.0 Basophils % 0.1 Nucleated Red Blood Cells % 0.6 H Neutrophils # 5.5 Lymphocytes # 1.5 Monocytes # 0.6 Eosinophils # 0.1 Basophils # 0.0 Nucleated Red Blood Cells # 0.1 H Absolute Reticulocyte Count 0.098 Percent Reticulocyte Count 3.2 H Sodium Level 135 Potassium Level 4.1 Chloride Level 104 Carbon Dioxide Level 26 Anion Gap 9 Blood Urea Nitrogen 10 Creatinine 0.45 L Glucose Level 142 Calcium Level 7.5 L Iron Level 33 L Total Iron Binding Capacity 202 L Percent Iron Saturation 16 L Ferritin 630.0 H Lactate Dehydrogenase 612 Vitamin B12 Level < 159 L Folate 9.7 Thyroid Stimulating Hormone (TSH) 1.680 Medications Medications Current Medications Diltiazem HCl (Cardizem Iv) 5 mg Q6H PRN IV ELEVATED HEART RATE; Start 08/10/16 at 03:45 Pantoprazole (Protonix Iv) 40 mg DAILY@06 IV Last administered on 08/13/16 05: 31; Admin Dose 40 MG; Start 08/10/16 at 06:00 Acetaminophen (Tylenol Supp) 500 mg Q6H PRN [place] FEVER; Start 08/10/16 at 03:00 Miscellaneous Information 1 ea NOTE XX ; Start 08/10/16 at 03:45 Glucose (Glutose) 15 gm Q15M PRN PO DECREASED GLUCOSE; Start 08/10/16 at 03:45 Glucose (Glutose) 22.5 gm Q15M PRN PO DECREASED GLUCOSE; Start 08/10/16 at 03:45 Dextrose (D50w Syringe) 25 ml Q15M PRN IV DECREASED GLUCOSE; Start 08/10/16 at 03:45 Dextrose (D50w Syringe) 50 ml Q15M PRN IV DECREASED GLUCOSE; Start 08/10/16 at 03:45 Glucagon (Glucagen) 1 mg Q15M PRN IM DECREASED GLUCOSE; Start 08/10/16 at 03:45 Glucose (Glutose) 15 gm Q15M PRN BUCCAL DECREASED GLUCOSE; Start 08/10/16 at 03: 45 Miscellaneous Information (Pending Santyl Order For Wound Care) This patient melendez... PRN PRN XX WOUND CARE; Start 08/10/16 at 12:00 Metoprolol Tartrate (Lopressor) 25 mg BID PO Last administered on 08/13/16 09: 05; Admin Dose 25 MG; Start 08/10/16 at 21:00 Amiodarone HCl (Cordarone) 200 mg BID PO Last administered on 08/13/16 09:05; Admin Dose 200 MG; Start 08/10/16 at 21:00 Metoprolol Tartrate (Lopressor) 5 mg Q4H PRN IV hr>110 hold sbp<100; Start 08/10 at 14:30 Lorazepam 0.5 mg 0.5 mg Q6H PRN IV ANXIETY Last administered on 08/11/16 01:30 ; Admin Dose 0.5 MG; Start 08/10/16 at 23:30 Vancomycin HCl (Vancocin) 250 ml @ 125 mls/hr Q24H IVPB Last administered on 01:26; Admin Dose 125 MLS/HR; Start 08/12/16 at 01:00 Insulin Glargine (Lantus) 10 unit DAILY@20 SC Last administered on 08/12/16 21: 35; Admin Dose 10 UNIT; Start 08/12/16 at 20:00 KARLENE MUÑOZ MD Aug 13, 2016 09:32
[2016-08-13] MEDS ORDERED: INSULIN ASPART [NOVOLOG] 3 ML PEN SC SCH (11:20)
[2016-08-13] MEDS: Insulin NOVOLOG SS MILD Algorithm (SS with meals and bedtime) SC SCH ×3 (11:50→20:29)
--- NOTE | 2016-08-13 13:03 | CONS ---
Date/Time of Note Date/Time of Note DATE: 08/13/16 TIME: 12:52 Assessment/Plan Assessment/Plan Chief Complaint/Hosp Course The patient is an 86 year old male with: # Metastatic prostate cancer, hormone sensitive disease - Continue Lupron, due approximately August 14. Appreciate Dr. Huang's recommendations. Plan to give Lupron injection in remains in house, pharmacy checking on whether can give Lupron 22.5 mg Q3 month dose vs. 7.5 mg Q month. - s/p zometa 4 mg over 15 minutes on 08/12/16 - PSA elevated to 892, pending testosterone level. PSA was up to 205 in March [address] 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 Will still continue ADT even if castrate resistant, however will defer to Dr. Sinclair whether need to consider abiraterone or enzalutamide. - Will order CT CAP with contrast for restaging of prostate cancer - If at some point he is determined to be hormone refractory then will consider abiraterone, or enzalutamide # Altered mental status, CT head unrevealing, consider MRI brain. May be multifactorial due to hyponatremia, pain medications or other (per nurse, last given Ativan the night before last), infection (UTI/pneumonia/bacteremia), rule out brain mets - Will obtain MRI brain - pending. # Generalized weakness, may be due to infection, however given weakness, back pain, urinary retention/incontinence, would want to rule out cord involvement given diffuse osseous metastatic disease - Outpatient bone scan 05/16/16 revealed diffuse osseous metastatic disease - Will obtain MRI C/T/L spine - pending # Urinary retention, appreciate Dr. Huang recommendations. # Anemia, likely related to chronic inflammation plus possible bone marrow involvement with nucleated RBCs, plus gross hematuria - Hgb 6.9 on 08/12/16, s/p 2 units pRBCs, now increased to 9.2. - iron panel showed Fe 33, TIBC low at 202, %sat 16, ferritin 630 consistent with anemia of chronic inflammation, LDH normal at 612, retic inappropriately low at 98K; Folate normal at 9.7, Vitamin B12 low at < 159. TSH normal at 1.68. Pending homocysteine and methylmalonic acid. Pending haptoglobin. - Will give Vitamin B12 injection 1000 mcg today given undetectable Vitamin B12 level # Left upper extremity swelling, Dr. Sinclair had wanted to check a left upper extremity US to rule out DVT - Lower extremity dopplers showed 1. No right lower extremity DVT. 2. 3.7 cm Parker's cyst in the popliteal fossa. - Bilateral upper extremity dopplers negative for DVT Problems: Consultation Date/Type/Reason Admit Date/Time Aug 09, 2016 at 23:11 Initial Consult Date 08/12/16 Type of Consultation: Oncology Referring Provider: CHANELLE PAUL MD 24 HR Interval Summary Free Text/Dictation Patient is more alert today, feels well. No pain currently. No hematuria. Exam/Review of Systems Vital Signs Vitals Vital Signs Date Time Temp Pulse Resp B/P Pulse Ox O2 Delivery O2 Flow Rate FiO2 08/13/16 12:35 57 08/13/16 12:01 98.0 18 138/61 96 08/13/16 07:38 2.0 08/12/16 06:15 Room Air Nasal Cannula Intake and Output 08/12/16 08/12/16 08/13/16 15:00 23:00 07:00 Intake Total 700 ml 750 ml Output Total 800 ml 400 ml Balance -100 ml 350 ml Exam GENERAL: Awake and alert. HEENT: Normal. NECK: Supple, no JVD, no lymphadenopathy. LUNGS: Clear to auscultation. No crackles, no wheezes. HEART: S1, S2, with regular rhythm, no murmur. ABDOMEN: Soft, nontender, nondistended. Bowel sounds are present. EXTREMITIES: No clubbing, cyanosis, or edema. Montesinos catheter in place, no gross hematuria. NEUROLOGICAL: Alert, awake Not cooperative for a full neurological exam but unable to lift legs against gravity. Results Result Diagram: 08/13/16 0618 08/13/16 0618 Results 24 hrs Laboratory Tests Test 08/12/16 17:36 08/12/16 21:26 08/13/16 01:07 08/13/16 05:29 Bedside Glucose 301 H 263 H 182 151 Test 08/13/16 06:18 08/13/16 09:00 08/13/16 11:41 White Blood Count 7.9 # Red Blood Count 3.10 #L Hemoglobin 9.2 #L Hematocrit 27.4 #L Mean Corpuscular Volume 88.4 Mean Corpuscular Hemoglobin 29.7 Mean Corpuscular Hemoglobin Concent 33.6 Red Cell Distribution Width 18.4 H Platelet Count 230 Mean Platelet Volume 8.6 Neutrophils % 70.4 Lymphocytes % 19.3 Monocytes % 8.1 Eosinophils % 1.0 Basophils % 0.1 Nucleated Red Blood Cells % 0.6 H Neutrophils # 5.5 Lymphocytes # 1.5 Monocytes # 0.6 Eosinophils # 0.1 Basophils # 0.0 Nucleated Red Blood Cells # 0.1 H Absolute Reticulocyte Count 0.098 Percent Reticulocyte Count 3.2 H Sodium Level 135 Potassium Level 4.1 Chloride Level 104 Carbon Dioxide Level 26 Anion Gap 9 Blood Urea Nitrogen 10 Creatinine 0.45 L Glucose Level 142 Calcium Level 7.5 L Iron Level 33 L Total Iron Binding Capacity 202 L Percent Iron Saturation 16 L Ferritin 630.0 H Lactate Dehydrogenase 612 Vitamin B12 Level < 159 L Folate 9.7 Thyroid Stimulating Hormone (TSH) 1.680 Bedside Glucose 149 193 Medications Medications Current Medications Diltiazem HCl (Cardizem Iv) 5 mg Q6H PRN IV ELEVATED HEART RATE; Start 08/10/16 at 03:45 Pantoprazole (Protonix Iv) 40 mg DAILY@06 IV Last administered on 08/13/16t 05: 31; Admin Dose 40 MG; Start 08/10/16 at 06:00 Acetaminophen (Tylenol Supp) 500 mg Q6H PRN [place] FEVER; Start 08/10/16 at 03:00 Miscellaneous Information 1 ea NOTE XX ; Start 08/10/16 at 03:45 Glucose (Glutose) 15 gm Q15M PRN PO DECREASED GLUCOSE; Start 08/10/16 at 03:45 Glucose (Glutose) 22.5 gm Q15M PRN PO DECREASED GLUCOSE; Start 08/10/16 at 03:45 Dextrose (D50w Syringe) 25 ml Q15M PRN IV DECREASED GLUCOSE; Start 08/10/16 at 03:45 Dextrose (D50w Syringe) 50 ml Q15M PRN IV DECREASED GLUCOSE; Start 08/10/16 at 03:45 Glucagon (Glucagen) 1 mg Q15M PRN IM DECREASED GLUCOSE; Start 08/10/16 at 03:45 Glucose (Glutose) 15 gm Q15M PRN BUCCAL DECREASED GLUCOSE; Start 08/10/16 at 03: 45 Miscellaneous Information (Pending [facility]yl Order For Wound Care) This patient melendez... PRN PRN XX WOUND CARE; Start 08/10/16 at 12:00 Metoprolol Tartrate (Lopressor) 25 mg BID PO Last administered on 08/13/16 09: 05; Admin Dose 25 MG; Start 08/10/16 at 21:00 Amiodarone HCl (Cordarone) 200 mg BID PO Last administered on 08/13/16 09:05; Admin Dose 200 MG; Start 08/10/16 at 21:00 Metoprolol Tartrate (Lopressor) 5 mg Q4H PRN IV hr>110 hold sbp<100; Start 08/10 at 14:30 Lorazepam 0.5 mg 0.5 mg Q6H PRN IV ANXIETY Last administered on 08/11/16 01:30 ; Admin Dose 0.5 MG; Start 08/10/16 at 23:30 Vancomycin HCl (Vancocin) 250 ml @ 125 mls/hr Q24H IVPB Last administered on 01:26; Admin Dose 125 MLS/HR; Start 08/12/16 at 01:00 Insulin Glargine (Lantus) 10 unit DAILY@20 SC Last administered on 08/12/16 21: 35; Admin Dose 10 UNIT; Start 08/12/16 at 20:00 HAROLDO PEREZ MD Aug 13, 2016 13:02
[2016-08-13] MEDS ORDERED: CYANOCOBALAMIN 1000 MCG INJ IM ONE (14:30)
[2016-08-13] MEDS ORDERED: SOD CHLORIDE 0.9% 100 ML ONE (17:12)
[2016-08-13] MEDS ORDERED: IODIXANOL LOCM 100 ML BTL ONE (17:12)
--- NOTE | 2016-08-13 17:20 | PN ---
Date/Time of Note Date/Time of Note DATE: 08/13/16 TIME: 17:13 Assessment/Plan VTE Prophylaxis VTE Prophylaxis Intervention: SCD's Lines/Catheters IV [facility] ([facility] Peripheral IV Urinary Cath still in place: Yes Reason Cath still needed: urinary retention Assessment/Plan Chief Complaint/Hosp Course Patient is currently was taking to the CT scan of abdomen and pelvis, sinus rhythm on telemetry, no acute events were reported by nurse prior to procedure, per nurse patient is more awake and oriented today. ASSESSMENT AND PLAN: - Acute metabolic encephalopathy, resolving. - Possible pneumonia. Continue patient on broad spectrum antibiotics. Monitor chest x-ray. - Paroxysmal atrial flutter. Patient is currently in sinus rhythm. Dr. Ragsdale is following and cardiology consultation. - Diastolic dysfunction congestive heart failure. - Hyponatremia secondary to SIADH, resolved. Dr. Howard is following patient in nephrology consultation. Continue intravenous fluids. - History of prostate carcinoma. Dr. Reyes is following in hematology consultation. Dr. Huang is following in urology consultation. - Diabetes mellitus. Continue Lantus and NovoLog. - Anemia, status post blood transfusion. Continue to monitor hemoglobin and hematocrit. - Hypertension. - Urinary retention. Continue to follow up urology recommendation. Further recommendations based on clinical course. Plan of care discussed with Dr. Gregory. Problems: Exam/Review of Systems Vital Signs Vitals Vital Signs Date Time Temp Pulse Resp B/P Pulse Ox O2 Delivery O2 Flow Rate FiO2 08/13/16 16:17 65 08/13/16 15:46 98.3 18 153/66 96 08/13/16 10:00 Room Air 08/13/16 07:38 2.0 Intake and Output 08/12/16 08/12/16 08/13/16 15:00 23:00 07:00 Intake Total 700 ml 750 ml Output Total 800 ml 400 ml Balance -100 ml 350 ml Results Result Diagram: 08/13/16 0618 08/13/16 0618 Results 24 hrs Laboratory Tests Test 08/12/16 17:36 08/12/16 21:26 08/13/16 01:07 08/13/16 05:29 Bedside Glucose 301 H 263 H 182 151 Test 08/13/16 06:18 08/13/16 09:00 08/13/16 11:41 White Blood Count 7.9 # Red Blood Count 3.10 #L Hemoglobin 9.2 #L Hematocrit 27.4 #L Mean Corpuscular Volume 88.4 Mean Corpuscular Hemoglobin 29.7 Mean Corpuscular Hemoglobin Concent 33.6 Red Cell Distribution Width 18.4 H Platelet Count 230 Mean Platelet Volume 8.6 Neutrophils % 70.4 Lymphocytes % 19.3 Monocytes % 8.1 Eosinophils % 1.0 Basophils % 0.1 Nucleated Red Blood Cells % 0.6 H Neutrophils # 5.5 Lymphocytes # 1.5 Monocytes # 0.6 Eosinophils # 0.1 Basophils # 0.0 Nucleated Red Blood Cells # 0.1 H Absolute Reticulocyte Count 0.098 Percent Reticulocyte Count 3.2 H Sodium Level 135 Potassium Level 4.1 Chloride Level 104 Carbon Dioxide Level 26 Anion Gap 9 Blood Urea Nitrogen 10 Creatinine 0.45 L Glucose Level 142 Calcium Level 7.5 L Iron Level 33 L Total Iron Binding Capacity 202 L Percent Iron Saturation 16 L Ferritin 630.0 H Lactate Dehydrogenase 612 Vitamin B12 Level < 159 L Folate 9.7 Thyroid Stimulating Hormone (TSH) 1.680 Bedside Glucose 149 193 Medications Medications Current Medications Diltiazem HCl (Cardizem Iv) 5 mg Q6H PRN IV ELEVATED HEART RATE; Start 08/10/16 at 03:45 Pantoprazole (Protonix Iv) 40 mg DAILY@06 IV Last administered on 08/13/16t 05: 31; Admin Dose 40 MG; Start 08/10/16 at 06:00 Acetaminophen (Tylenol Supp) 500 mg Q6H PRN [place] FEVER; Start 08/10/16 at 03:00 Miscellaneous Information 1 ea NOTE XX ; Start 08/10/16 at 03:45 Glucose (Glutose) 15 gm Q15M PRN PO DECREASED GLUCOSE; Start 08/10/16 at 03:45 Glucose (Glutose) 22.5 gm Q15M PRN PO DECREASED GLUCOSE; Start 08/10/16 at 03:45 Dextrose (D50w Syringe) 25 ml Q15M PRN IV DECREASED GLUCOSE; Start 08/10/16 at 03:45 Dextrose (D50w Syringe) 50 ml Q15M PRN IV DECREASED GLUCOSE; Start 08/10/16 at 03:45 Glucagon (Glucagen) 1 mg Q15M PRN IM DECREASED GLUCOSE; Start 08/10/16 at 03:45 Glucose (Glutose) 15 gm Q15M PRN BUCCAL DECREASED GLUCOSE; Start 08/10/16 at 03: 45 Miscellaneous Information (Pending [facility] Order For Wound Care) This patient melendez... PRN PRN XX WOUND CARE; Start 08/10/16 at 12:00 Metoprolol Tartrate (Lopressor) 25 mg BID PO Last administered on 08/13/16 09: 05; Admin Dose 25 MG; Start 08/10/16 at 21:00 Amiodarone HCl (Cordarone) 200 mg BID PO Last administered on 08/13/16 09:05; Admin Dose 200 MG; Start 08/10/16 at 21:00 Metoprolol Tartrate (Lopressor) 5 mg Q4H PRN IV hr>110 hold sbp<100; Start 08/10 at 14:30 Lorazepam 0.5 mg 0.5 mg Q6H PRN IV ANXIETY Last administered on 08/11/16 01:30 ; Admin Dose 0.5 MG; Start 08/10/16 at 23:30 Vancomycin HCl (Vancocin) 250 ml @ 125 mls/hr Q24H IVPB Last administered on 01:26; Admin Dose 125 MLS/HR; Start 08/12/16 at 01:00 Insulin Glargine (Lantus) 10 unit DAILY@20 SC Last administered on 08/12/16 21: 35; Admin Dose 10 UNIT; Start 08/12/16 at 20:00 Miscellaneous Information (*Rx Drug Level Order Reminder*) 1 ONCE ONCE XX ; Start 08/14/16 at 00:00; Stop 08/14/16 at 00:01 ROBERT CORRALES Aug 13, 2016 17:20
--- NOTE | 2016-08-13 18:09 | RADRPT ---
PROCEDURE: CT Chest, Abdomen and Pelvis with intravenous contrast CLINICAL INDICATION: Prostate cancer, staging. TECHNIQUE: CT of the chest, abdomen and pelvis was performed on a multidetector scanner following the uncomplicated IV administration of 100 cc of Visipaque 320. Coronal and sagittal images were re formatted from the axial data set. One or more of the following dose reduction techniques were used : automated exposure control, adjustment of the mA and/or kV according to patient size, use of iter ative reconstruction technique. CTDI = 9.71 mGy. DLP = 736.51 mGy-cm. COMPARISON: None available FINDINGS: CT chest: There are large bilateral pleural effusions, with associated bibasilar atelectasis. Benign calcifie d granuloma is seen anteromedially within the right upper lobe. No acute infiltrate, pulmonary melly a or pneumothorax is identified. The central tracheobronchial tree is clear. No gross evidence of pulmonary nodule or mass is identified. There is mild cardiomegaly, without significant pericardial fluid. No thoracic aortic aneurysm or d issection is identified. Aortic atherosclerotic calcifications are present. There is no mediastina l, hilar, axillary or supraclavicular lymphadenopathy. CT abdomen and pelvis: Pneumobilia is noted, presumably sequela of prior sphincterotomy. Liver, gallbladder, pancreas, spl een, adrenal glands and kidneys are unremarkable except for benign renal cysts. No urolithiasis or obstructive uropathy is identified. The stomach is grossly unremarkable. There is no abdominal aortic aneurysm or dissection. Aortic vascular calcifications are present. prominent left periaortic lymph nodes are identified measuring up to 13 x 11 mm (3-137). The su hepatis region is clear. Fat-containing umbilical hernia is noted. No bowel obstruction, free intraperitoneal air or abscess is identified. There is no diverticulosis , diverticulitis, colitis or appendicitis. Montesinos catheter balloon is within the urinary bladder. P rostate is mildly enlarged. Enlarged left common iliac lymph node is identified measuring 18 x12 mm (3-178). No pelvic free fluid is seen. Diffuse anasarca is noted. Diffuse osteosclerosis is noted, consistent with diffuse osseous metastatic disease. There is diffu se degenerative spondylosis of the spine. IMPRESSION: 1. Diffuse osteosclerotic metastatic disease is identified. 2. Prominent left periaortic and left common iliac retroperitoneal lymph nodes are identified, like ly metastatic lymphadenopathy. 3. Prostate is enlarged. Montesinos catheter balloon is within the urinary bladder. 4. No evidence of metastatic disease is seen in the chest. 5. There are large bilateral pleural effusions, with associated bibasilar atelectasis. 6. Aortoiliac atherosclerotic calcifications are present. 7. Fat-containing umbilical hernia is noted, without incarceration. RPTAT: VV .Gilbert Perla MD, MD Date Time Electronically viewed and signed by .Gilbert Perla MD, on 08/13/2016 18:09 .R/
--- NOTE | 2016-08-13 18:17 | CONS ---
Date/Time of Note Date/Time of Note DATE: 08/13/16 TIME: 18:12 Assessment/Plan Assessment/Plan Chief Complaint/Hosp Course IMPRESSION: 1. Paroxysmal atrial flutter, currently in sinus rhythm. 2. Abnl electrocardiogram, assess for acute coronary syndrome. -negative troponin x 3 3. Congestive heart failure by chest x-ray, diastolic, likely acute on chronic. -EF normal by echo this admit 4. Hypertension under reasonable control with episodes of borderline hypotension. 5. Altered mental state/encephalopathy. 6. Hyponatremia-improcing significantly 7. Urinary tract infection. 8. Anemia. 9. PLeural effusions bilateral Recc: -Tele -serial ecg's -Continue BB/amio -Follow rhythm closely -Not on systemic anti-coag given anemia requiring transfusions. -Start gentle lasix diuresis and follow na closely Problems: Consultation Date/Type/Reason Admit Date/Time Aug 09, 2016 at 23:11 Initial Consult Date 08/12/16 Type of Consultation: cardiology Reason for Consultation PAFL Referring Provider: CHANELLE PAUL MD Exam/Review of Systems Vital Signs Vitals Vital Signs Date Time Temp Pulse Resp B/P Pulse Ox O2 Delivery O2 Flow Rate FiO2 08/13/16 16:17 65 08/13/16 15:46 98.3 18 153/66 96 08/13/16 10:00 Room Air 08/13/16 07:38 2.0 Intake and Output 08/12/16 08/12/16 08/13/16 15:00 23:00 07:00 Intake Total 700 ml 750 ml Output Total 800 ml 400 ml Balance -100 ml 350 ml Exam Review of Systems: CONSTITUTIONAL: No fevers, chills. PULMONARY: No sob CARDIOVASCULAR: No chest pain/palpitations GASTROINTESTINAL: No nausea/vomiting. GENITOURINARY: No hematuria/dysuria. MUSCULOSKELETAL: No myagias/arthalgias. PSYCHIATRIC: The patient denies depression. NEUROLOGIC: lethargic Head: normocephalic ENMT: mucosa pink and moist Neck: jvd (8 cm water), supple Respiratory: diminished breath sounds (at bases/B) Cardiovascular: regular rate and rhythm Gastrointestinal: non-tender, soft Musculoskeletal: muscle tone (normal) Extremities: edema (none) Neurological: lethargic Results Result Diagram: 6/5/17 0618 6/5/17 0618 Results 24 hrs Laboratory Tests Test 08/12/16 21:26 08/13/16 01:07 08/13/16 05:29 08/13/16 06:18 Bedside Glucose 263 H 182 151 White Blood Count 7.9 # Red Blood Count 3.10 #L Hemoglobin 9.2 #L Hematocrit 27.4 #L Mean Corpuscular Volume 88.4 Mean Corpuscular Hemoglobin 29.7 Mean Corpuscular Hemoglobin Concent 33.6 Red Cell Distribution Width 18.4 H Platelet Count 230 Mean Platelet Volume 8.6 Neutrophils % 70.4 Lymphocytes % 19.3 Monocytes % 8.1 Eosinophils % 1.0 Basophils % 0.1 Nucleated Red Blood Cells % 0.6 H Neutrophils # 5.5 Lymphocytes # 1.5 Monocytes # 0.6 Eosinophils # 0.1 Basophils # 0.0 Nucleated Red Blood Cells # 0.1 H Absolute Reticulocyte Count 0.098 Percent Reticulocyte Count 3.2 H Sodium Level 135 Potassium Level 4.1 Chloride Level 104 Carbon Dioxide Level 26 Anion Gap 9 Blood Urea Nitrogen 10 Creatinine 0.45 L Glucose Level 142 Calcium Level 7.5 L Iron Level 33 L Total Iron Binding Capacity 202 L Percent Iron Saturation 16 L Ferritin 630.0 H Lactate Dehydrogenase 612 Vitamin B12 Level < 159 L Folate 9.7 Thyroid Stimulating Hormone (TSH) 1.680 Test 08/13/16 09:00 08/13/16 11:41 Bedside Glucose 149 193 Medications Medications Current Medications Diltiazem HCl (Cardizem Iv) 5 mg Q6H PRN IV ELEVATED HEART RATE; Start 08/10/16 at 03:45 Pantoprazole (Protonix Iv) 40 mg DAILY@06 IV Last administered on 08/13/16t 05: 31; Admin Dose 40 MG; Start 08/10/16 at 06:00 Acetaminophen (Tylenol Supp) 500 mg Q6H PRN [place] FEVER; Start 08/10/16 at 03:00 Miscellaneous Information 1 ea NOTE XX ; Start 08/10/16 at 03:45 Glucose (Glutose) 15 gm Q15M PRN PO DECREASED GLUCOSE; Start 08/10/16 at 03:45 Glucose (Glutose) 22.5 gm Q15M PRN PO DECREASED GLUCOSE; Start 08/10/16 at 03:45 Dextrose (D50w Syringe) 25 ml Q15M PRN IV DECREASED GLUCOSE; Start 08/10/16 at 03:45 Dextrose (D50w Syringe) 50 ml Q15M PRN IV DECREASED GLUCOSE; Start 08/10/16 at 03:45 Glucagon (Glucagen) 1 mg Q15M PRN IM DECREASED GLUCOSE; Start 08/10/16 at 03:45 Glucose (Glutose) 15 gm Q15M PRN BUCCAL DECREASED GLUCOSE; Start 08/10/16 at 03: 45 Miscellaneous Information (Pending [facility] Order For Wound Care) This patient melendez... PRN PRN XX WOUND CARE; Start 08/10/16 at 12:00 Metoprolol Tartrate (Lopressor) 25 mg BID PO Last administered on 08/13/16 09: 05; Admin Dose 25 MG; Start 08/10/16 at 21:00 Amiodarone HCl (Cordarone) 200 mg BID PO Last administered on 08/13/16 09:05; Admin Dose 200 MG; Start 08/10/16 at 21:00 Metoprolol Tartrate (Lopressor) 5 mg Q4H PRN IV hr>110 hold sbp<100; Start 08/10 at 14:30 Lorazepam 0.5 mg 0.5 mg Q6H PRN IV ANXIETY Last administered on 08/11/16 01:30 ; Admin Dose 0.5 MG; Start 08/10/16 at 23:30 Vancomycin HCl (Vancocin) 250 ml @ 125 mls/hr Q24H IVPB Last administered on 01:26; Admin Dose 125 MLS/HR; Start 08/12/16 at 01:00 Insulin Glargine (Lantus) 10 unit DAILY@20 SC Last administered on 08/12/16 21: 35; Admin Dose 10 UNIT; Start 08/12/16 at 20:00 Miscellaneous Information (*Rx Drug Level Order Reminder*) 1 ONCE ONCE XX ; Start 08/14/16 at 00:00; Stop 08/14/16 at 00:01 Leuprolide Acetate (Lupron Depot) 7.5 mg ONCE ONCE IM ; Start 08/13/16 at 18:00 ; Stop 08/13/16 at 18:01; Status ROSI BLANCAS Aug 13, 2016 18:17
--- NOTE | 2016-08-13 18:21 | PN ---
DATE: 08/13/2016 SUBJECTIVE: Patient was having pain before and today he states that he is feeling better. He is lo oking stronger and denies having any pain. PAST MEDICAL HISTORY: The patient is known to have metastatic prostate cancer and has been on Lupro n Depot. Last injection was 05/14/2016 and he is due to his injection tomorrow. OBJECTIVE FINDINGS VITAL SIGNS: His temperature is 98.3, blood pressure 153/66, pulse is 65, respiration 18. ABDOMEN: Soft. Initially he did have hematuria 2 days ago because of the Montesinos catheter that he melendez d was not inside the bladder and he was bleeding because of that. Today his urine is perfectly laura r. There is no bleeding. LABORATORY DATA: CBC shows a white count of 7.9, hemoglobin 9.2, it was 6.9 yesterday, the BUN is 1 0, creatinine 0.45. His prostate specific antigen was measured about 892. The patient did have a P SA that did go up to 205 and that is when we did restart him on the Lupron and ordered a bone scan f or him which showed diffuse bony metastasis. IMPRESSION: Metastatic prostate cancer and gross hematuria that has cleared. The hematuria is most likely traumatic from having a Montesinos catheter with the balloon inflated into the urethra, and the p atient pulling the catheter out by himself with the balloon inflated. PLAN: To continue his present treatment. He is to have another injection of Lupron Depot tomorrow. Will order that, and he is being followed by Dr. Sinclair and Dr. Mcgrath. We will have him have Dr. Bogdan avitia following him and they already started him on Zometa. As far as the Monteisnos catheter is concern ed, we will keep the Montesinos catheter in until he is a little stronger, then we could take it out and see if he does urinate well. Dictated By: ANGELA GRANT/CHERRY Conf#: [id number] DID#: [id number]
[2016-08-13] MEDS: INSULIN GLARGINE [LANtus] 3 ML PEN SC SCH (20:23)
[2016-08-14] VITALS (11 sets, daily range): BP systolic 126–150; BP diastolic 59–68; PULSE 62–70; RESP 18–19
--- NOTE | 2016-08-14 00:20 | RADRPT ---
PROCEDURE: MRI Brain without and with contrast. CLINICAL INDICATION: Altered mental status. Weakness. Concern for metastatic disease. TECHNIQUE: MRI of the brain was performed with the following sequences obtained: Sagittal, coronal and axial T1-weighted, axial T2-weighted, axial FLAIR, axial diffusion weighted (with ADC map), and coronal GRE. Following the intravenous injection of 10 cc Magnevist, postcontrast T1-weighted image s are obtained COMPARISON: CT brain 08/09/2016 FINDINGS: The study is limited by motion artifact The diffusion sequence is normal with no evidence for acute infarct. No hemorrhage, mass effect or mass lesion is present. The extraaxial spaces are clear of collections. Prominence of the ventricu lar system and sulci is consistent with generalized atrophy appropriate for the patient's provided a ge of 86 years. There are scattered foci of hyperintense FLAIR and T2 signal within the subcortical and periventricular white matter that likely reflect the sequela of chronic small vessel ischemia. There is no pathologic enhancement or mass lesion to suggest intraparenchymal metastasis. No signal alteration is present within the brainstem or cerebellum. The fourth ventricle is midline and the craniocervical junction lesion is intact. The area of the sella is normal. No pathologic e nhancement in the posterior fossa is present. The bony calvarium and skull base are intact without evidence of metastatic disease. Fluid signal w ithin the right mastoid air cells is present. The remaining left mastoid air cells are clear. Trac e mucosal thickening of the maxillary sinuses is present. Physiologic flow voids within the interna l carotid and vertebral arteries are maintained. RPTAT:HJJR IMPRESSION: 1. Slightly limited exam because of motion artifact. 2. No evidence of intracranial or osseous metastatic disease. 3. Generalized age-appropriate cerebral tissue loss with moderate chronic small vessel ischemic dis ease of the cerebral white matter. 4. Fluid within the right mastoid air cells with mild chronic maxillary sinus mucosal thickening. Physician Lluvia Date Time Electronically viewed and signed by Physician Lluvia on 08/14/2016 00:20 /
--- NOTE | 2016-08-14 00:29 | RADRPT ---
PROCEDURE: MR cervical spine without and with contrast CLINICAL INDICATION: Possible cord compression. Concern for metastatic disease TECHNIQUE: An MRI of the cervical spine was performed utilizing sagittal T1 weighted, sagittal T2 weighted, sagittal STIR, axial T2-weighted balance fast field echo and axial GRE. Following the int ravenous injection of 10 cc Magnevist, postcontrast axial and sagittal T1 images are obtained COMPARISON: None available. FINDINGS: The examination is limited by motion artifact Vertebral bodies: Abnormal heterogeneous signal intensity on all sequences is present with diffuse heterogeneous enhancement throughout the vertebral bodies and posterior elements most concerning for osseous metastatic disease without pathologic fracture. Mild to moderate multilevel anterior spond ylosis is present, the lordosis is preserved Cervical spinal cord: No intrinsic cord signal abnormality is identified however, there is mild enh ancement of the anterior and posterior epidural space concerning for possible carcinomatosis C2-3: Disk signal loss with mild loss of disk stature. No disk bulge or herniation is identified. The central canal and foramina are patent. C3-4: Disk signal loss with moderate loss of disk stature. Small posterior osteophyte and disk comp cole with ligamentum flavum hypertrophy narrows the anterior subarachnoid space causing moderate cent ral canal stenosis. Facet arthropathy and uncovertebral hypertrophy cause moderate to severe bilate ral foraminal narrowing. C4-5: Disk signal loss without more than mild loss of disk stature. Trace disk bulging and ligament um flavum hypertrophy cause mild central canal stenosis. Left greater than right facet arthropathy and uncovertebral hypertrophy cause severe left and moderate right foraminal stenosis. C5-6: Disk signal loss with minimal loss of disk stature. Trace disk bulging with ligamentum flavum hypertrophy, mild to moderate central stenosis is present. Facet arthropathy and uncovertebral hyp ertrophy cause moderate bilateral foraminal narrowing. C6-7: Disk signal loss without loss of disk stature. No disk bulge or herniation is identified. No central canal stenosis. Moderate right foraminal stenosis from uncovertebral hypertrophy is presen t. C7-T1: Disk signal loss with mild loss of disk stature. Mild annular disk bulging without focal pro trusion. The central canal and foramina are patent. RPTAT:HJJR IMPRESSION: 1. Limited exam because of motion artifact. 2. Diffuse abnormal enhancement in signal intensity within the vertebral bodies and posterior eleme nts consistent with metastatic disease until proven otherwise. 3. 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 4. Significant central canal stenosis without signal alteration of the cervical spinal cord is pres ent at C3-4 caused by disk disease and ligamentum flavum hypertrophy with significant bilateral fora christine stenosis. 5. Central canal stenosis caused by disk disease and ligamentum flavum hypertrophy is also present to a lesser degree at C5-6 and C4-5. Physician Lluvia Date Time Electronically viewed and signed by Hai Greene Physician on 08/14/2016 00:28 /
[2016-08-14] MEDS: VANCOMYCIN 1 GM in NS 250 ML IVPB SCH (03:16)
[2016-08-14] MEDS: PANTOPRAZOLE 40 MG INJ IV SCH (05:04)
[2016-08-14] MEDS: Insulin NOVOLOG SS MILD Algorithm (SS with meals and bedtime) SC SCH ×4 (07:25→21:33)
[2016-08-14 07:35] LABS: ADD SCAN DIFF NO
[2016-08-14 07:37] LABS: BASOPHILS % 0.4 % (0.0-2.0); EOSINOPHILS # 0.1 10^3/ul (0.0-0.5); EOSINOPHILS % 0.9 % (0.0-7.0); HEMATOCRIT 28.5 % (42.0-52.0); HEMOGLOBIN 9.3 g/dl (14.0-18.0); LYMPHOCYTES # 1.4 10^3/ul (0.8-2.9); LYMPHOCYTES % 20.7 % (15.0-51.0); MEAN CORPUSCULAR HEMOGLOBIN 29.4 pg (29.0-33.0); MEAN CORPUSCULAR HGB CONC 32.6 g/dl (32.0-37.0); MEAN CORPUSCULAR VOLUME 90.2 fl (82.0-101.0); MEAN PLATELET VOLUME 8.3 fl (7.4-10.4); MONOCYTE # 0.5 10^3/ul (0.3-0.9); MONOCYTES % 7.6 % (0.0-11.0); NEUTROPHIL # 4.6 10^3/ul (1.6-7.5); NEUTROPHILS % 68.9 % (39.0-77.0); NUCLEATED RED BLOOD CELLS # 0.1 10^3/ul (0.0-0.0); NUCLEATED RED BLOOD CELLS% 1.6 /100WBC (0.0-0.0); PLATELET COUNT 214 10^3/UL (140-415); RED BLOOD COUNT 3.16 10^6/ul (4.70-6.10); RED CELL DISTRIBUTION WIDTH 18.6 % (11.5-14.5); WHITE BLOOD COUNT 6.7 10^3/ul (4.8-10.8)
[2016-08-14 08:05] LABS: CALCIUM 6.1 mg/dl (8.4-10.2); CREATININE 0.42 mg/dl (0.61-1.24); POTASSIUM 3.9 mmol/L (3.5-5.1)
[2016-08-14] MEDS: AMIODARONE 200 MG TAB PO SCH ×2 (09:36→21:30)
[2016-08-14] MEDS: FUROSEMIDE 20 MG INJ IV SCH (09:36)
[2016-08-14] MEDS: METOPROLOL 25 MG TAB PO SCH ×2 (09:37→21:31)
--- NOTE | 2016-08-14 10:03 | CONS ---
Date/Time of Note Date/Time of Note DATE: 08/14/16 TIME: 10:02 Assessment/Plan Assessment/Plan Additional Assessment/Plan 1. Parox a. fib - in sinus now, rate controlled, con't to follow - SINUS NOW - stable 1. Severe hyponatremia with a sodium 114 on admission - renal team follow, rx as needed - BETTER 2. Acute metabolic encephalopathy and fall at home secondary to severe hyponatremia- still confused, gfamily at bedside 3. Hypovolemic hyponatremia versus syndrome of inappropriate diuretic hormone. 4. Hypertension- well Rx, con't to follow - not taking po meds now. WELL RX. 5. Hyperlipidemia. 6. History of prostate carcinoma- no intervention palnned now - Urology Team follows 7. History of diabetes mellitus - on meds, keep euglycemic. 8. History of bilateral knee arthritis. Consultation Date/Type/Reason Admit Date/Time Aug 09, 2016 at 23:11 Type of Consultation: cardiology Referring Provider: CHANELLE PAUL MD 24 HR Interval Summary Free Text/Dictation NO acute events - sinus rhythm on tele ROS: No fever, no chills, no nausea, no vomiting, no diarrhea/constipation No recent weight changes No chest pain, no PND, no orthopnea No dizziness, blurred vision No thirst, no heat or cold intolerance Exam/Review of Systems Vital Signs Vitals Vital Signs Date Time Temp Pulse Resp B/P Pulse Ox O2 Delivery O2 Flow Rate FiO2 08/14/16 08:00 63 08/14/16 07:51 98.2 18 141/60 95 08/14/16 06:10 Room Air 08/14/16 01:39 21 08/13/16 07:38 2.0 Intake and Output 08/13/16 08/13/16 08/14/16 15:00 23:00 07:00 Intake Total 700 ml 400 ml Output Total 650 ml 600 ml Balance 50 ml -200 ml Exam General: WN/WD/NAD, AOx 2-3 HEENT: Unicetric/atraumatic/EOMI (follow commands) NECK: JVD elevated, no thyromegaly Lymph: no lymphadenopathy HEART: regular with no S3, II/ systolic murmur at apex LUNGS: Coarse sounds ABD: soft, NT, ND, +BS : Intact Neuro: non focal SKIN: chronic changes EXT: trace edema Results Result Diagram: 08/14/16 0610 08/14/16 0610 Results 24 hrs Laboratory Tests Test 08/13/16 11:41 08/13/16 18:01 08/13/16 19:52 08/14/16 00:39 Bedside Glucose 193 202 217 Vancomycin Level Trough < 5.0 L Test 08/14/16 03:32 08/14/16 06:09 08/14/16 06:10 08/14/16 07:42 Bedside Glucose 98 93 Lab Scanned Report BLOOD TRANSFUSION White Blood Count 6.7 Red Blood Count 3.16 L Hemoglobin 9.3 L Hematocrit 28.5 L Mean Corpuscular Volume 90.2 Mean Corpuscular Hemoglobin 29.4 Mean Corpuscular Hemoglobin Concent 32.6 Red Cell Distribution Width 18.6 H Platelet Count 214 Mean Platelet Volume 8.3 Neutrophils % 68.9 Lymphocytes % 20.7 Monocytes % 7.6 Eosinophils % 0.9 Basophils % 0.4 Nucleated Red Blood Cells % 1.6 H Neutrophils # 4.6 Lymphocytes # 1.4 Monocytes # 0.5 Eosinophils # 0.1 Basophils # 0.0 Nucleated Red Blood Cells # 0.1 H Sodium Level 137 Potassium Level 3.9 Chloride Level 105 Carbon Dioxide Level 27 Anion Gap 9 Blood Urea Nitrogen 8 Creatinine 0.42 L Glucose Level 85 # Calcium Level 6.1 L Medications Medications Current Medications Diltiazem HCl (Cardizem Iv) 5 mg Q6H PRN IV ELEVATED HEART RATE; Start 08/10/16 at 03:45 Pantoprazole (Protonix Iv) 40 mg DAILY@06 IV Last administered on 08/14/16t 05: 04; Admin Dose 40 MG; Start 08/10/16 at 06:00 Acetaminophen (Tylenol Supp) 500 mg Q6H PRN [place] FEVER; Start 08/10/16 at 03:00 Miscellaneous Information 1 ea NOTE XX ; Start 08/10/16 at 03:45 Glucose (Glutose) 15 gm Q15M PRN PO DECREASED GLUCOSE; Start 08/10/16 at 03:45 Glucose (Glutose) 22.5 gm Q15M PRN PO DECREASED GLUCOSE; Start 08/10/16 at 03:45 Dextrose (D50w Syringe) 25 ml Q15M PRN IV DECREASED GLUCOSE; Start 08/10/16 at 03:45 Dextrose (D50w Syringe) 50 ml Q15M PRN IV DECREASED GLUCOSE; Start 08/10/16 at 03:45 Glucagon (Glucagen) 1 mg Q15M PRN IM DECREASED GLUCOSE; Start 08/10/16 at 03:45 Glucose (Glutose) 15 gm Q15M PRN BUCCAL DECREASED GLUCOSE; Start 08/10/16 at 03: 45 Miscellaneous Information (Pending Santyl Order For Wound Care) This patient melendez... PRN PRN XX WOUND CARE; Start 08/10/16 at 12:00 Metoprolol Tartrate (Lopressor) 25 mg BID PO Last administered on 08/14/16 09: 37; Admin Dose 25 MG; Start 08/10/16 at 21:00 Amiodarone HCl (Cordarone) 200 mg BID PO Last administered on 08/14/16 09:36; Admin Dose 200 MG; Start 08/10/16 at 21:00 Metoprolol Tartrate (Lopressor) 5 mg Q4H PRN IV hr>110 hold sbp<100; Start 08/10 at 14:30 Lorazepam (Ativan) 0.5 mg Q6H PRN IV ANXIETY Last administered on 08/11/16 01: 30; Admin Dose 0.5 MG; Start 08/10/16 at 23:30 Insulin Glargine (Lantus) 10 unit DAILY@20 SC Last administered on 08/13/16 20: 23; Admin Dose 10 UNIT; Start 08/12/16 at 20:00 Leuprolide Acetate (Lupron Depot) 7.5 mg ONCE ONCE IM ; Start 08/13/16 at 18:00 ; Stop 08/13/16 at 18:01; Status UNV Furosemide 20 mg 20 mg DAILY IV Last administered on 08/14/16 09:36; Admin Dose 20 MG; Start 08/14/16 at 09:00 Vancomycin HCl/ Sodium Chloride (Vancocin/NS) 250 ml @ 83.333 mls/ hr Q24H IVPB ; Start 08/14/16 at 16:00 KIT FAYE MD Aug 14, 2016 10:03
--- NOTE | 2016-08-14 14:18 | CONS ---
Date/Time of Note Date/Time of Note DATE: 08/14/16 TIME: 14:04 Assessment/Plan Assessment/Plan Chief Complaint/Hosp Course The patient is an 86 year old male with: # Metastatic prostate cancer, hormone sensitive disease - Continue Lupron, due approximately August 14. Appreciate Dr. Huang's recommendations. Plan to give Lupron injection in remains in house, pharmacy checking on whether can give Lupron 22.5 mg Q3 month dose vs. 7.5 mg Q month. - s/p zometa 4 mg over 15 minutes on 08/12/16 - PSA elevated to 892, pending testosterone level. PSA was up to 205 in March 2016. will plant to start Abiraterone 1000mg q day as an out patient -CT C/A/P demonstrated diffuse metastatic disease as well as left periaortic and left common iliac retroperitoneal lymph nodes are identified, likely metastatic lymphadenopathy. # Altered mental status which has resolved. - MRI brain unremarkable. CT C spine showed no evidence of cord compression but questionable evidence of leptomeningeal disease. -will not start intrathecal therapy at this time. -pt will see if there is a role for radiation -will start Abiraterone as stated above # Generalized weakness, may be due to infection, however given weakness, back pain, urinary retention/incontinence, would want to rule out cord involvement given diffuse osseous metastatic disease - Outpatient bone scan 05/16/16 revealed diffuse osseous metastatic disease # Urinary retention, appreciate Dr. Huang recommendations. # Anemia, likely related to chronic inflammation plus possible bone marrow involvement with nucleated RBCs, plus gross hematuria - Hgb 6.9 on 08/12/16, s/p 2 units pRBCs, now increased to 9.2. - iron panel showed Fe 33, TIBC low at 202, %sat 16, ferritin 630 consistent with anemia of chronic inflammation, LDH normal at 612, retic inappropriately low at 98K; Folate normal at 9.7, Vitamin B12 low at < 159. TSH normal at 1.68. Pending homocysteine and methylmalonic acid. Pending haptoglobin. - Will give Vitamin B12 injection 1000 mcg today given undetectable Vitamin B12 level # Left upper extremity swelling, - Lower extremity dopplers showed 1. No right lower extremity DVT. 2. 3.7 cm Parker's cyst in the popliteal fossa. - Bilateral upper extremity dopplers negative for DVT Problems: Consultation Date/Type/Reason Admit Date/Time Aug 09, 2016 at 23:11 Initial Consult Date 08/12/16 Type of Consultation: Hematology Reason for Consultation metastatic prostate cancer Referring Provider: CHANELLE PAUL MD 24 HR Interval Summary Free Text/Dictation no acute overnight. pt feels well Exam/Review of Systems Vital Signs Vitals Vital Signs Date Time Temp Pulse Resp B/P Pulse Ox O2 Delivery O2 Flow Rate FiO2 08/14/16 12:00 98.0 70 19 127/64 95 08/14/16 06:10 Room Air 08/14/16 01:39 21 08/13/16 07:38 2.0 Intake and Output 08/13/16 08/13/16 08/14/16 15:00 23:00 07:00 Intake Total 700 ml 400 ml Output Total 650 ml 600 ml Balance 50 ml -200 ml Exam Constitutional: alert, oriented Psych: no complaints Head: normocephalic Eyes: nl conjunctiva ENMT: nl external ears & nose Neck: non-tender, supple Respiratory: clear to auscultation, normal air movement Cardiovascular: regular rate and rhythm Gastrointestinal: soft Musculoskeletal: nl extremities to inspection, nl gait and stance Results Result Diagram: 08/14/16 0610 08/14/16 0610 Results 24 hrs Laboratory Tests Test 08/13/16 18:01 08/13/16 19:52 08/14/16 00:39 08/14/16 03:32 Bedside Glucose 202 217 98 Vancomycin Level Trough < 5.0 L Test 08/14/16 06:09 08/14/16 06:10 08/14/16 07:42 08/14/16 12:51 Lab Scanned Report BLOOD TRANSFUSION White Blood Count 6.7 Red Blood Count 3.16 L Hemoglobin 9.3 L Hematocrit 28.5 L Mean Corpuscular Volume 90.2 Mean Corpuscular Hemoglobin 29.4 Mean Corpuscular Hemoglobin Concent 32.6 Red Cell Distribution Width 18.6 H Platelet Count 214 Mean Platelet Volume 8.3 Neutrophils % 68.9 Lymphocytes % 20.7 Monocytes % 7.6 Eosinophils % 0.9 Basophils % 0.4 Nucleated Red Blood Cells % 1.6 H Neutrophils # 4.6 Lymphocytes # 1.4 Monocytes # 0.5 Eosinophils # 0.1 Basophils # 0.0 Nucleated Red Blood Cells # 0.1 H Sodium Level 137 Potassium Level 3.9 Chloride Level 105 Carbon Dioxide Level 27 Anion Gap 9 Blood Urea Nitrogen 8 Creatinine 0.42 L Glucose Level 85 # Calcium Level 6.1 L Bedside Glucose 93 192 Medications Medications Current Medications Diltiazem HCl (Cardizem Iv) 5 mg Q6H PRN IV ELEVATED HEART RATE; Start 08/10/16 at 03:45 Pantoprazole (Protonix Iv) 40 mg DAILY@06 IV Last administered on 08/14/16 05: 04; Admin Dose 40 MG; Start 08/10/16 at 06:00 Acetaminophen (Tylenol Supp) 500 mg Q6H PRN [place] FEVER; Start 08/10/16 at 03:00 Miscellaneous Information 1 ea NOTE XX ; Start 08/10/16 at 03:45 Glucose (Glutose) 15 gm Q15M PRN PO DECREASED GLUCOSE; Start 08/10/16 at 03:45 Glucose (Glutose) 22.5 gm Q15M PRN PO DECREASED GLUCOSE; Start 08/10/16 at 03:45 Dextrose (D50w Syringe) 25 ml Q15M PRN IV DECREASED GLUCOSE; Start 08/10/16 at 03:45 Dextrose (D50w Syringe) 50 ml Q15M PRN IV DECREASED GLUCOSE; Start 08/10/16 at 03:45 Glucagon (Glucagen) 1 mg Q15M PRN IM DECREASED GLUCOSE; Start 08/10/16 at 03:45 Glucose (Glutose) 15 gm Q15M PRN BUCCAL DECREASED GLUCOSE; Start 08/10/16 at 03: 45 Miscellaneous Information (Pending [facility] Order For Wound Care) This patient melendez... PRN PRN XX WOUND CARE; Start 08/10/16 at 12:00 Metoprolol Tartrate (Lopressor) 25 mg BID PO Last administered on 08/14/16 09: 37; Admin Dose 25 MG; Start 08/10/16 at 21:00 Amiodarone HCl (Cordarone) 200 mg BID PO Last administered on 08/14/16 09:36; Admin Dose 200 MG; Start 08/10/16 at 21:00 Metoprolol Tartrate (Lopressor) 5 mg Q4H PRN IV hr>110 hold sbp<100; Start 08/10 at 14:30 Lorazepam (Ativan) 0.5 mg Q6H PRN IV ANXIETY Last administered on 08/11/16 01: 30; Admin Dose 0.5 MG; Start 08/10/16 at 23:30 Insulin Glargine (Lantus) 10 unit DAILY@20 SC Last administered on 08/13/16 20: 23; Admin Dose 10 UNIT; Start 08/12/16 at 20:00 Leuprolide Acetate (Lupron Depot) 7.5 mg ONCE ONCE IM ; Start 08/13/16 at 18:00 ; Stop 08/13/16 at 18:01; Status UNV Furosemide 20 mg 20 mg DAILY IV Last administered on 08/14/16 09:36; Admin Dose 20 MG; Start 08/14/16 at 09:00 Vancomycin HCl/ Sodium Chloride (Vancocin/NS) 150 ml @ 75 mls/hr Q12H IVPB ; Start 08/14/16 at 15:00 ZAHEER PRYOR M.D. Aug 14, 2016 14:14
[2016-08-14] MEDS ORDERED: VANCOMYCIN 750 MG in SOD CHLORIDE 0.9% 150 ML IVPB SCH (15:00)
--- NOTE | 2016-08-14 15:51 | RADRPT ---
PROCEDURE: MR Lumbar Spine. CLINICAL INDICATION: Weakness, assess for cord compression. Bony metastasis TECHNIQUE: An MRI of the lumbar spine was performed utilizing the following sequences: Sagittal T 1 weighted, axial proton density, sagittal and axial T2 weighted, and sagittal T2 inversion recovery COMPARISON: CT 08/13/2016 FINDINGS: The examination is significantly limited by technical factors, with signal loss, particularly on axi al imaging. There is a normal lumbar lordosis. There is a mild retrolisthesis at L1-L2, measuring 4 mm. There is mild to moderate disk space narrowing through the lumbar spine. There is diffuse low T1 and T2 m arrow signal, consistent with diffuse metastatic disease. The conus medullaris is not well evaluated, possibly low in position, extending to approximately L3. There is a thinned appearance of the cord posterior to the L1 level, and a mild thickened appearan ce of the cord at the L1-L2 level, with slight cord T2 hyperintensity. L1-L2: There is a mild retrolisthesis. There is moderate to severe bilateral facet hypertrophy. T here is buckling of the posterior epidural fat. There is moderate to severe appearing central canal stenosis with canal diameter measuring 8 x 9 mm. There is moderate to severe left and moderate right foraminal stenosis. L2-L3: There is a mild disk osteophyte complex. There is moderate to severe bilateral facet hypert rophy. There is mild to moderate appearing central canal stenosis. There is mild to moderate appea ring bilateral foraminal stenosis. L3-L4: There is a mild disk osteophyte complex. There is severe bilateral facet hypertrophy. Ther e is moderate appearing central canal stenosis. There is moderate bilateral foraminal stenosis. L4-L5: There is a mild disk osteophyte complex. There is severe bilateral facet hypertrophy. Ther e is mild appearing central canal stenosis. There is moderate to severe bilateral foraminal stenosi s. L5-S1: There is no disk protrusion or extrusion. There is minimal bilateral facet hypertrophy. Th ere is no central canal stenosis. There is no neural foraminal stenosis. There is no abnormal paravertebral soft tissue mass. There is extensive diffuse soft tissue edema.. IMPRESSION: 1. The examination is significantly limited by technical factors. There is extensive diffuse soft tissue edema. There is diffuse abnormal bone marrow signal consistent with sclerotic metastases. 2. There is possible low position of the conus, at approximately L3, which may reflect a tethered c ord. 3. At L1-L2, there is a mild retrolisthesis, 4 mm There is moderate to severe bilateral facet hype rtrophy. There is associated moderate to severe appearing central canal stenosis, with canal diamet er measuring 8 x 9 mm. There is apparent deformation of the cord, and increased cord T2 signal, tucker picious for a small area of edema. 4. Mild disk osteophyte complexes from L2-L3 through L4-5. Moderate to severe and severe facet hyp ertrophic changes at these levels as noted. 5. Moderate appearing central canal stenosis at L3-L4 and mild to moderate central canal stenosis a t L2-L3. 6. Neural foraminal stenosis, which appears moderate to severe on the left at L1-L2 and on both colin es at L4-5. RPTAT: DD .Anatoly Concepcion MD, MD Date Time Electronically viewed and signed by .Anatoly Concepcion MD, on 08/14/2016 15:51 .T/
[2016-08-14] MEDS ORDERED: VANCOMYCIN 1.5 GM in SOD CHLORIDE 0.9% 250 ML IVPB SCH (16:00)
--- NOTE | 2016-08-14 16:02 | RADRPT ---
PROCEDURE: MR thoracic Spine with contrast. CLINICAL INDICATION: Weakness, assess for cord compression TECHNIQUE: An MRI of the thoracic spine was performed utilizing the following sequences: Sagittal T1 weighted, axial proton density, sagittal and axial T2 weighted, and sagittal T2 inversion recove ry. Axial and sagittal T1 post contrast images were obtained after administration of 10 ml of intra venous Magnevist. COMPARISON: None. FINDINGS: There is normal kyphosis of the thoracic spine. No vertebral body subluxation is seen. Vertebral b candido heights are maintained. There is diffuse low T1 and T2 marrow signal, consistent with extensive sclerotic metastasis. There is moderate appearing disk space narrowing through the thoracic spine. Intervertebral disk spaces are maintained. The thoracic cord appears normal in configuration and signal intensity. No abnormal cord lesion is identified. There is no definite disk protrusion or extrusion. There is no central canal stenosis identified. Facets and neural foramen are poorly visualized through the mid and lower thoracic spine. Definite significant foraminal stenosis is not distinctly seen. There is diffuse soft tissue edema. There are large bilateral pleural effusions. IMPRESSION: 1. Examination significantly limited by technical factors. There is diffuse low marrow signal cons istent with sclerotic metastasis. There is large bilateral pleural effusions. 2. No definite disk protrusion or extrusion. No central canal stenosis identified. 3. Facets and neural foramina are poorly visualized through the mid and lower thoracic spine. RPTAT: DD .Anatoly Concepcion MD, MD Date Time Electronically viewed and signed by .Anatoly Concepcion MD, on 08/14/2016 16:01 .T/
[2016-08-14] MEDS ORDERED: LEUPROLIDE 7.5 MG INJ IM ONE (17:00)
--- NOTE | 2016-08-14 19:33 | PN ---
Date/Time of Note Date/Time of Note DATE: 08/14/16 TIME: 19:25 Assessment/Plan VTE Prophylaxis VTE Prophylaxis Intervention: SCD's Lines/Catheters IV Catheter Type (from Nrs): Peripheral IV Urinary Cath still in place: Yes Reason Cath still needed: urinary retention Assessment/Plan Chief Complaint/Hosp Course Patient is awake alert, pain is well controlled, sinus rhythm on telemetry. ASSESSMENT AND PLAN: - Metastatic prostate cancer. Dr. Sinclair is following in hematology consultation. Dr. Huang is following in urology consultation. On Lupron status post Zometa - Acute metabolic encephalopathy, resolving. - Bilateral pleural effusions - Paroxysmal atrial flutter. Dr. Ragsdale is following and cardiology consultation. - Diastolic dysfunction congestive heart failure. Continue Lasix monitor electrolytes. - Hyponatremia secondary to SIADH, resolved. Dr. Howard is following patient in nephrology consultation. Continue intravenous fluids. - Diabetes mellitus. Continue Lantus and NovoLog. - Anemia, status post blood transfusion. Continue to monitor hemoglobin and hematocrit. - Hypertension. - Urinary retention. Continue to follow up urology recommendation. Further recommendations based on clinical course. Plan of care discussed with Dr. Gregory. Problems: Exam/Review of Systems Vital Signs Vitals Vital Signs Date Time Temp Pulse Resp B/P Pulse Ox O2 Delivery O2 Flow Rate FiO2 08/14/16 16:00 66 08/14/16 15:30 98.0 19 126/59 96 08/14/16 06:10 Room Air 08/14/16 01:39 21 08/13/16 07:38 2.0 Intake and Output 08/13/16 08/13/16 08/14/16 15:00 23:00 07:00 Intake Total 700 ml 400 ml Output Total 650 ml 600 ml Balance 50 ml -200 ml Exam Constitutional: alert, oriented Head: normocephalic Neck: supple Respiratory: diminished breath sounds Cardiovascular: nl pulses Gastrointestinal: non-tender, soft Genitourinary - Male: other (Montesinos catheter) Extremities: normal pulses Results Result Diagram: 08/14/16 0610 08/14/16 0610 Results 24 hrs Laboratory Tests Test 08/13/16 19:52 08/14/16 00:39 08/14/16 03:32 08/14/16 06:09 Bedside Glucose 217 98 Vancomycin Level Trough < 5.0 L Lab Scanned Report BLOOD TRANSFUSION Test 08/14/16 06:10 08/14/16 07:42 08/14/16 12:51 08/14/16 17:14 White Blood Count 6.7 Red Blood Count 3.16 L Hemoglobin 9.3 L Hematocrit 28.5 L Mean Corpuscular Volume 90.2 Mean Corpuscular Hemoglobin 29.4 Mean Corpuscular Hemoglobin Concent 32.6 Red Cell Distribution Width 18.6 H Platelet Count 214 Mean Platelet Volume 8.3 Neutrophils % 68.9 Lymphocytes % 20.7 Monocytes % 7.6 Eosinophils % 0.9 Basophils % 0.4 Nucleated Red Blood Cells % 1.6 H Neutrophils # 4.6 Lymphocytes # 1.4 Monocytes # 0.5 Eosinophils # 0.1 Basophils # 0.0 Nucleated Red Blood Cells # 0.1 H Sodium Level 137 Potassium Level 3.9 Chloride Level 105 Carbon Dioxide Level 27 Anion Gap 9 Blood Urea Nitrogen 8 Creatinine 0.42 L Glucose Level 85 # Calcium Level 6.1 L Bedside Glucose 93 192 219 Medications Medications Current Medications Diltiazem HCl (Cardizem Iv) 5 mg Q6H PRN IV ELEVATED HEART RATE; Start 08/10/16 at 03:45 Pantoprazole (Protonix Iv) 40 mg DAILY@06 IV Last administered on 08/14/16t 05: 04; Admin Dose 40 MG; Start 08/10/16 at 06:00 Acetaminophen (Tylenol Supp) 500 mg Q6H PRN [place] FEVER; Start 08/10/16 at 03:00 Miscellaneous Information 1 ea NOTE XX ; Start 08/10/16 at 03:45 Glucose (Glutose) 15 gm Q15M PRN PO DECREASED GLUCOSE; Start 08/10/16 at 03:45 Glucose (Glutose) 22.5 gm Q15M PRN PO DECREASED GLUCOSE; Start 08/10/16 at 03:45 Dextrose (D50w Syringe) 25 ml Q15M PRN IV DECREASED GLUCOSE; Start 08/10/16 at 03:45 Dextrose (D50w Syringe) 50 ml Q15M PRN IV DECREASED GLUCOSE; Start 08/10/16 at 03:45 Glucagon (Glucagen) 1 mg Q15M PRN IM DECREASED GLUCOSE; Start 08/10/16 at 03:45 Glucose (Glutose) 15 gm Q15M PRN BUCCAL DECREASED GLUCOSE; Start 08/10/16 at 03: 45 Miscellaneous Information (Pending [facility]yl Order For Wound Care) This patient melendez... PRN PRN XX WOUND CARE; Start 08/10/16 at 12:00 Metoprolol Tartrate (Lopressor) 25 mg BID PO Last administered on 08/14/16 09: 37; Admin Dose 25 MG; Start 08/10/16 at 21:00 Amiodarone HCl (Cordarone) 200 mg BID PO Last administered on 08/14/16 09:36; Admin Dose 200 MG; Start 08/10/16 at 21:00 Metoprolol Tartrate (Lopressor) 5 mg Q4H PRN IV hr>110 hold sbp<100; Start 08/10 at 14:30 Lorazepam (Ativan) 0.5 mg Q6H PRN IV ANXIETY Last administered on 08/11/16 01: 30; Admin Dose 0.5 MG; Start 08/10/16 at 23:30 Insulin Glargine (Lantus) 10 unit DAILY@20 SC Last administered on 08/13/16 20: 23; Admin Dose 10 UNIT; Start 08/12/16 at 20:00 Furosemide 20 mg 20 mg DAILY IV Last administered on 08/14/16 09:36; Admin Dose 20 MG; Start 08/14/16 at 09:00 Vancomycin HCl/ Sodium Chloride (Vancocin/NS) 150 ml @ 75 mls/hr Q12H IVPB Last administered on 08/14/16 16:26; Admin Dose 75 MLS/HR; Start 08/14/16 at 15: 00 Cyanocobalamin (Vitamin B12 Inj) 1,000 mcg DAILY IM ; Start 08/15/16 at 09:00; Stop 08/21/16 at 08:59 ROBERT CORRALES Aug 14, 2016 19:33 ROBERT CORRALES Aug 14, 2016 19:33
--- NOTE | 2016-08-14 20:30 | PN ---
DATE: 08/14/2016 SUBJECTIVE: The patient denies having any pain. He complains of some weakness, and he has metastat ic prostate cancer. OBJECTIVE: GENERAL: The patient is afebrile. Temperature is 98.0, pulse is 66, respiration 19, blood pressure is 126/59. ABDOMEN: Soft. There is no abdominal tenderness. GENITOURINARY: The Montesinos catheter that he has now is draining clear urine. Initially 2 days ago, h is urine was bloody because the catheter was not all the way inside his bladder. LABORATORY DATA: His CBC shows a white count of 6.7, hemoglobin 9.3, hematocrit 28.5, the platelet count 214,000. BUN is 8, creatinine 0.42, sodium 137, potassium 3.9, chloride 105, CO2 27. The PSA is over 892. IMAGING: The patient did have a thoracic and lumbar spine MRI today, and the lumbar spine was repor mayo as: 1. The examination is significantly limited by technical factor. There is extensive diffuse soft-t issue edema. There is diffuse abnormal bone marrow signal consistent with sclerotic metastasis. 2. There is possible low position of the conus at approximately L3 which may reflect a tethered cor d. 3. At L1-L2, there is mild retrolisthesis, 4 mm. There is moderate to severe bilateral facet hyper trophy. There is associated moderate- to severe-appearing central canal stenosis with canal diamete r measuring 8.9 mm. There is apparent deformation of the cord and increased cord T2 signal suspicio us for a small area of edema. 4. Mild disk osteophyte complexes from L2-L3 through L4-L5. Moderate to severe and severe facet hy pertrophic changes at these levels as noted. 5. Moderate-appearing central canal stenosis at L3-L4 and mild to moderate central canal stenosis a t L2-L3. 6. Neural foraminal stenosis which appears moderate to severe on the left at L1-L2 and on both side s at L4-L5. The MRI of the thoracic spine, again it shows there is diffuse low marrow signal consistent with scl erotic metastasis. There are large bilateral pleural effusions. No definite disk protrusion or ext rusion. No central canal stenosis identified. Facets and neural foramina are poorly visualized thr ough the mid and lower thoracic spine. IMPRESSION: The patient does have metastatic prostate cancer. He is due to have his Lupron Depot i njection. I had talked to the pharmacy yesterday, and they got him the injection of 7.5 mg leuproli de acetate, which is Eligard 7.5 mg. I prepared it, and I injected it into his subcutaneous tissue of the abdominal wall. PLAN: Continue to keep the Montesinos catheter in, and in the future he will also continue to need the L upron Depot, and also he did get Zometa as per Dr. Reyes's recommendation. Dictated By: ANGELA GRANT/CHERRY Conf#: [id number] DID#: [id number]
[2016-08-14] MEDS: CEFTRIAXONE 1 GM/50 ML (PMX) 50 ML IVPB SCH (21:36)
[2016-08-14] MEDS: INSULIN GLARGINE [LANtus] 3 ML PEN SC SCH (21:38)
--- NOTE | 2016-08-14 22:06 | CONS ---
Date/Time of Note Date/Time of Note DATE: 08/14/16 TIME: 22:05 Assessment/Plan Assessment/Plan Additional Assessment/Plan 1. Severe hyponatremia with a sodium 114 on admission. 2. Acute metabolic encephalopathy and fall at home secondary to severe hyponatremia. 3. Hypovolemic hyponatremia versus syndrome of inappropriate diuretic hormone. 4. Hypertension. 5. Hyperlipidemia. 6. History of prostate carcinoma. 7. History of diabetes mellitus. 8. History of bilateral knee arthritis. 9. Anemia, Iron deficiency,iron sat 16%, normal ferritin Plan: S/p 3 % saline,and S/p one dose of tolvaptan 15 gram PO x 1 dose, now Na normal today Iron saturation low but Ferritin good Other care as per PMD Cr normal, K normal will continue to follow up Consultation Date/Type/Reason Admit Date/Time Aug 09, 2016 at 23:11 Type of Consultation: NEPHROLOGY Referring Provider: CHANELLE PAUL MD Exam/Review of Systems Vital Signs Vitals Vital Signs Date Time Temp Pulse Resp B/P Pulse Ox O2 Delivery O2 Flow Rate FiO2 08/14/16 21:14 97.9 66 18 137/62 98 08/14/16 06:10 Room Air 08/14/16 01:39 21 08/13/16 07:38 2.0 Intake and Output 08/13/16 08/13/16 08/14/16 15:00 23:00 07:00 Intake Total 700 ml 400 ml Output Total 650 ml 600 ml Balance 50 ml -200 ml Results Result Diagram: 08/14/16 0610 08/14/16 0610 Results 24 hrs Laboratory Tests Test 08/14/16 00:39 08/14/16 03:32 08/14/16 06:09 08/14/16 06:10 Vancomycin Level Trough < 5.0 L Bedside Glucose 98 Lab Scanned Report BLOOD TRANSFUSION White Blood Count 6.7 Red Blood Count 3.16 L Hemoglobin 9.3 L Hematocrit 28.5 L Mean Corpuscular Volume 90.2 Mean Corpuscular Hemoglobin 29.4 Mean Corpuscular Hemoglobin Concent 32.6 Red Cell Distribution Width 18.6 H Platelet Count 214 Mean Platelet Volume 8.3 Neutrophils % 68.9 Lymphocytes % 20.7 Monocytes % 7.6 Eosinophils % 0.9 Basophils % 0.4 Nucleated Red Blood Cells % 1.6 H Neutrophils # 4.6 Lymphocytes # 1.4 Monocytes # 0.5 Eosinophils # 0.1 Basophils # 0.0 Nucleated Red Blood Cells # 0.1 H Sodium Level 137 Potassium Level 3.9 Chloride Level 105 Carbon Dioxide Level 27 Anion Gap 9 Blood Urea Nitrogen 8 Creatinine 0.42 L Glucose Level 85 # Calcium Level 6.1 L Test 08/14/16 07:42 08/14/16 12:51 08/14/16 17:14 08/14/16 20:55 Bedside Glucose 93 192 219 225 H Medications Medications Current Medications Diltiazem HCl (Cardizem Iv) 5 mg Q6H PRN IV ELEVATED HEART RATE; Start 08/10/16 at 03:45 Pantoprazole (Protonix Iv) 40 mg DAILY@06 IV Last administered on 08/14/16 05: 04; Admin Dose 40 MG; Start 08/10/16 at 06:00 Acetaminophen (Tylenol Supp) 500 mg Q6H PRN IN FEVER; Start 08/10/16 at 03:00 Miscellaneous Information 1 ea NOTE XX ; Start 08/10/16 at 03:45 Glucose (Glutose) 15 gm Q15M PRN PO DECREASED GLUCOSE; Start 08/10/16 at 03:45 Glucose (Glutose) 22.5 gm Q15M PRN PO DECREASED GLUCOSE; Start 08/10/16 at 03:45 Dextrose (D50w Syringe) 25 ml Q15M PRN IV DECREASED GLUCOSE; Start 08/10/16 at 03:45 Dextrose (D50w Syringe) 50 ml Q15M PRN IV DECREASED GLUCOSE; Start 08/10/16 at 03:45 Glucagon (Glucagen) 1 mg Q15M PRN IM DECREASED GLUCOSE; Start 08/10/16 at 03:45 Glucose (Glutose) 15 gm Q15M PRN BUCCAL DECREASED GLUCOSE; Start 08/10/16 at 03: 45 Miscellaneous Information (Pending [facility] Order For Wound Care) This patient melendez... PRN PRN XX WOUND CARE; Start 08/10/16 at 12:00 Metoprolol Tartrate (Lopressor) 25 mg BID PO Last administered on 08/14/16 21: 31; Admin Dose 25 MG; Start 08/10/16 at 21:00 Amiodarone HCl (Cordarone) 200 mg BID PO Last administered on 08/14/16 21:30; Admin Dose 200 MG; Start 08/10/16 at 21:00 Metoprolol Tartrate (Lopressor) 5 mg Q4H PRN IV hr>110 hold sbp<100; Start 08/10 at 14:30 Lorazepam (Ativan) 0.5 mg Q6H PRN IV ANXIETY Last administered on 08/11/16 01: 30; Admin Dose 0.5 MG; Start 08/10/16 at 23:30 Insulin Glargine (Lantus) 10 unit DAILY@20 SC Last administered on 08/14/16 21: 38; Admin Dose 10 UNIT; Start 08/12/16 at 20:00 Furosemide (Lasix) 20 mg DAILY IV Last administered on 08/14/16 09:36; Admin Dose 20 MG; Start 08/14/16 at 09:00 Cyanocobalamin 1000 mcg 1,000 mcg DAILY IM ; Start 08/15/16 at 09:00; Stop at 08:59 Ceftriaxone Sodium (Rocephin) 50 ml @ 100 mls/hr Q24H IVPB Last administered on 08/14/16 21:36; Admin Dose 100 MLS/HR; Start 08/14/16 at 20:00 KARLENE MUÑOZ MD Aug 14, 2016 22:06
[2016-08-15] VITALS (11 sets, daily range): BP systolic 121–142; BP diastolic 60–64; PULSE 59–108; RESP 17–20
[2016-08-15] MEDS: PANTOPRAZOLE 40 MG INJ IV SCH (05:29)
[2016-08-15 07:04] LABS: ADD SCAN DIFF NO
[2016-08-15 07:14] LABS: BASOPHILS % 0.6 % (0.0-2.0); EOSINOPHILS # 0.1 10^3/ul (0.0-0.5); EOSINOPHILS % 2.1 % (0.0-7.0); HEMATOCRIT 28.3 % (42.0-52.0); HEMOGLOBIN 9.2 g/dl (14.0-18.0); LYMPHOCYTES % 18.7 % (15.0-51.0); MEAN CORPUSCULAR HEMOGLOBIN 29.4 pg (29.0-33.0); MEAN CORPUSCULAR HGB CONC 32.5 g/dl (32.0-37.0); MEAN CORPUSCULAR VOLUME 90.4 fl (82.0-101.0); MEAN PLATELET VOLUME 8.4 fl (7.4-10.4); MONOCYTE # 0.4 10^3/ul (0.3-0.9); NEUTROPHIL # 3.6 10^3/ul (1.6-7.5); NEUTROPHILS % 68.3 % (39.0-77.0); NUCLEATED RED BLOOD CELLS # 0.1 10^3/ul (0.0-0.0); PLATELET COUNT 191 10^3/UL (140-415); RED BLOOD COUNT 3.13 10^6/ul (4.70-6.10); RED CELL DISTRIBUTION WIDTH 18.6 % (11.5-14.5); WHITE BLOOD COUNT 5.3 10^3/ul (4.8-10.8)
[2016-08-15 07:44] LABS: CALCIUM 6.2 mg/dl (8.4-10.2); CREATININE 0.38 mg/dl (0.61-1.24); POTASSIUM 3.7 mmol/L (3.5-5.1)
[2016-08-15] MEDS: Insulin NOVOLOG SS MILD Algorithm (SS with meals and bedtime) SC SCH ×4 (08:23→20:33)
[2016-08-15] MEDS: METOPROLOL 25 MG TAB PO SCH ×2 (08:54→20:17)
[2016-08-15] MEDS: FUROSEMIDE 20 MG INJ IV SCH (08:54)
[2016-08-15] MEDS: AMIODARONE 200 MG TAB PO SCH ×2 (08:54→20:18)
[2016-08-15] MEDS: CYANOCOBALAMIN 1000 MCG INJ IM SCH (08:55)
[2016-08-15 09:58] LABS: FREE TESTOSTERONE 1.5 pg/mL (30.0-135.0)
--- NOTE | 2016-08-15 12:14 | CONS ---
Date/Time of Note Date/Time of Note DATE: 08/15/16 TIME: 12:12 Assessment/Plan Assessment/Plan Chief Complaint/Hosp Course IMPRESSION: 1. Paroxysmal atrial flutter, currently in sinus rhythm. 2. Abnl electrocardiogram, assess for acute coronary syndrome. -negative troponin x 3 3. Congestive heart failure by chest x-ray, diastolic, likely acute on chronic. -EF normal by echo this admit 4. Hypertension under reasonable control with episodes of borderline hypotension. 5. Altered mental state/encephalopathy. 6. Hyponatremia-improved s/p dose of tolvaptan 7. Urinary tract infection. 8. Anemia. 9. PLeural effusions bilateral 10.Prostate ca-metastatic Recc: -Tele -serial ecg's -Continue BB/amio -Follow rhythm closely -Not on systemic anti-coag given anemia requiring transfusions. -Continue gentle lasix diuresis and follow na closely Problems: Consultation Date/Type/Reason Admit Date/Time Aug 09, 2016 at 23:11 Initial Consult Date 08/12/16 Type of Consultation: cardiology Reason for Consultation PAF Referring Provider: CHANELLE PAUL MD Exam/Review of Systems Vital Signs Vitals Vital Signs Date Time Temp Pulse Resp B/P Pulse Ox O2 Delivery O2 Flow Rate FiO2 08/15/16 11:11 98.0 59 20 131/61 94 08/14/16 06:10 Room Air 08/14/16 01:39 21 08/13/16 07:38 2.0 Intake and Output 08/14/16 08/14/16 08/15/16 15:00 23:00 07:00 Intake Total 850 ml 500 ml Output Total 1400 ml 1200 ml Balance -550 ml -700 ml Exam Review of Systems: CONSTITUTIONAL: No fevers, chills. PULMONARY: No sob CARDIOVASCULAR: No chest pain/palpitations GASTROINTESTINAL: No nausea/vomiting. GENITOURINARY: No hematuria/dysuria. MUSCULOSKELETAL: No myagias/arthalgias. PSYCHIATRIC: The patient denies depression. NEUROLOGIC: No weakness Constitutional: alert Psych: no complaints Head: normocephalic ENMT: mucosa pink and moist Neck: jvd (8-9 cm water), supple Respiratory: diminished breath sounds (at bases/B) Cardiovascular: regular rate and rhythm Gastrointestinal: non-tender, soft Musculoskeletal: muscle tone (normal) Extremities: edema (none) Neurological: other (No focal deficits) Results Result Diagram: 08/15/16 0630 08/15/16 0630 Results 24 hrs Laboratory Tests Test 08/14/16 12:51 08/14/16 17:14 08/14/16 20:55 08/15/16 01:48 Bedside Glucose 192 219 225 H 179 Test 08/15/16 06:30 08/15/16 08:15 08/15/16 11:58 White Blood Count 5.3 # Red Blood Count 3.13 L Hemoglobin 9.2 L Hematocrit 28.3 L Mean Corpuscular Volume 90.4 Mean Corpuscular Hemoglobin 29.4 Mean Corpuscular Hemoglobin Concent 32.5 Red Cell Distribution Width 18.6 H Platelet Count 191 Mean Platelet Volume 8.4 Neutrophils % 68.3 Lymphocytes % 18.7 Monocytes % 8.0 Eosinophils % 2.1 Basophils % 0.6 Nucleated Red Blood Cells % 1.0 H Neutrophils # 3.6 Lymphocytes # 1.0 Monocytes # 0.4 Eosinophils # 0.1 Basophils # 0.0 Nucleated Red Blood Cells # 0.1 H Sodium Level 135 Potassium Level 3.7 Chloride Level 106 Carbon Dioxide Level 25 Anion Gap 8 Blood Urea Nitrogen 8 Creatinine 0.38 L Glucose Level 141 # Calcium Level 6.2 L Bedside Glucose 158 224 H Medications Medications Current Medications Diltiazem HCl (Cardizem Iv) 5 mg Q6H PRN IV ELEVATED HEART RATE; Start 08/10/16 at 03:45 Pantoprazole (Protonix Iv) 40 mg DAILY@06 IV Last administered on 08/15/16t 05: 29; Admin Dose 40 MG; Start 08/10/16 at 06:00 Acetaminophen (Tylenol Supp) 500 mg Q6H PRN [place] FEVER; Start 08/10/16 at 03:00 Miscellaneous Information 1 ea NOTE XX ; Start 08/10/16 at 03:45 Glucose (Glutose) 15 gm Q15M PRN PO DECREASED GLUCOSE; Start 08/10/16 at 03:45 Glucose (Glutose) 22.5 gm Q15M PRN PO DECREASED GLUCOSE; Start 08/10/16 at 03:45 Dextrose (D50w Syringe) 25 ml Q15M PRN IV DECREASED GLUCOSE; Start 08/10/16 at 03:45 Dextrose (D50w Syringe) 50 ml Q15M PRN IV DECREASED GLUCOSE; Start 08/10/16 at 03:45 Glucagon (Glucagen) 1 mg Q15M PRN IM DECREASED GLUCOSE; Start 08/10/16 at 03:45 Glucose (Glutose) 15 gm Q15M PRN BUCCAL DECREASED GLUCOSE; Start 08/10/16 at 03: 45 [facility] This patient melendez... PRN PRN XX WOUND CARE; Start 08/10/16 at 12:00 Metoprolol Tartrate (Lopressor) 25 mg BID PO Last administered on 08/15/16 08: 54; Admin Dose 25 MG; Start 08/10/16 at 21:00 Amiodarone HCl (Cordarone) 200 mg BID PO Last administered on 08/15/16 08:54; Admin Dose 200 MG; Start 08/10/16 at 21:00 Metoprolol Tartrate (Lopressor) 5 mg Q4H PRN IV hr>110 hold sbp<100; Start 08/10 at 14:30 Lorazepam (Ativan) 0.5 mg Q6H PRN IV ANXIETY Last administered on 08/11/16 01: 30; Admin Dose 0.5 MG; Start 08/10/16 at 23:30 Insulin Glargine (Lantus) 10 unit DAILY@20 SC Last administered on 08/14/16 21: 38; Admin Dose 10 UNIT; Start 08/12/16 at 20:00 Furosemide (Lasix) 20 mg DAILY IV Last administered on 08/15/16 08:54; Admin Dose 20 MG; Start 08/14/16 at 09:00 Cyanocobalamin 1000 mcg 1,000 mcg DAILY IM Last administered on 08/15/16 08:55 ; Admin Dose 1,000 MCG; Start 08/15/16 at 09:00; Stop 08/21/16 at 08:59 Ceftriaxone Sodium (Rocephin) 50 ml @ 100 mls/hr Q24H IVPB Last administered on 08/14/16 21:36; Admin Dose 100 MLS/HR; Start 08/14/16 at 20:00 ROSI ROBERTSON Aug 15, 2016 12:14
--- NOTE | 2016-08-15 14:03 | PN ---
Date/Time of Note Date/Time of Note DATE: 08/15/16 TIME: 13:56 Assessment/Plan VTE Prophylaxis VTE Prophylaxis Intervention: SCD's Lines/Catheters IV [facility]atheter [facility] (from [facility]): Saline Lock Urinary Cath still in place: Yes Reason Cath still needed: urinary retention Assessment/Plan Chief Complaint/Hosp Course ASSESSMENT AND PLAN: - Metastatic prostate cancer. Dr. Sinclair is following in hematology consultation. Dr. Huang is following in urology consultation. On Lupron status post Zometa - Acute metabolic encephalopathy, resolving. - Bilateral pleural effusions - Paroxysmal atrial flutter. Dr. Ragsdale is following and cardiology consultation. - Diastolic dysfunction congestive heart failure. Continue Lasix monitor electrolytes. - Hyponatremia secondary to SIADH, resolved. Dr. Howard is following patient in nephrology consultation. Continue intravenous fluids. - Diabetes mellitus. Continue Lantus and NovoLog. - Anemia, status post blood transfusion. Continue to monitor hemoglobin and hematocrit. - Hypertension. - Urinary retention. Continue to follow up urology recommendation. Further recommendations based on clinical course. Plan of care discussed with Dr. Gregory. Problems: Exam/Review of Systems Vital Signs Vitals Vital Signs Date Time Temp Pulse Resp B/P Pulse Ox O2 Delivery O2 Flow Rate FiO2 08/15/16 12:29 61 08/15/16 11:11 98.0 20 131/61 94 08/14/16 06:10 Room Air 08/14/16 01:39 21 08/13/16 07:38 2.0 Intake and Output 08/14/16 08/14/16 08/15/16 15:00 23:00 07:00 Intake Total 850 ml 500 ml Output Total 1400 ml 1200 ml Balance -550 ml -700 ml Exam Constitutional: alert, oriented Head: normocephalic Neck: supple Respiratory: diminished breath sounds Cardiovascular: nl pulses Gastrointestinal: non-tender, soft Genitourinary - Male: other (Montesinos catheter) Extremities: normal pulses Results Result Diagram: 08/15/16 0630 08/15/16 0630 Results 24 hrs Laboratory Tests Test 08/14/16 17:14 08/14/16 20:55 08/15/16 01:48 08/15/16 06:30 Bedside Glucose 219 225 H 179 White Blood Count 5.3 # Red Blood Count 3.13 L Hemoglobin 9.2 L Hematocrit 28.3 L Mean Corpuscular Volume 90.4 Mean Corpuscular Hemoglobin 29.4 Mean Corpuscular Hemoglobin Concent 32.5 Red Cell Distribution Width 18.6 H Platelet Count 191 Mean Platelet Volume 8.4 Neutrophils % 68.3 Lymphocytes % 18.7 Monocytes % 8.0 Eosinophils % 2.1 Basophils % 0.6 Nucleated Red Blood Cells % 1.0 H Neutrophils # 3.6 Lymphocytes # 1.0 Monocytes # 0.4 Eosinophils # 0.1 Basophils # 0.0 Nucleated Red Blood Cells # 0.1 H Sodium Level 135 Potassium Level 3.7 Chloride Level 106 Carbon Dioxide Level 25 Anion Gap 8 Blood Urea Nitrogen 8 Creatinine 0.38 L Glucose Level 141 # Calcium Level 6.2 L Test 08/15/16 08:15 08/15/16 11:58 Bedside Glucose 158 224 H Medications Medications Current Medications Diltiazem HCl (Cardizem Iv) 5 mg Q6H PRN IV ELEVATED HEART RATE; Start 08/10/16 at 03:45 Pantoprazole (Protonix Iv) 40 mg DAILY@06 IV Last administered on 08/15/16t 05: 29; Admin Dose 40 MG; Start 08/10/16 at 06:00 Acetaminophen (Tylenol Supp) 500 mg Q6H PRN [place] FEVER; Start 08/10/16 at 03:00 Miscellaneous Information 1 ea NOTE XX ; Start 08/10/16 at 03:45 Glucose (Glutose) 15 gm Q15M PRN PO DECREASED GLUCOSE; Start 08/10/16 at 03:45 Glucose (Glutose) 22.5 gm Q15M PRN PO DECREASED GLUCOSE; Start 08/10/16 at 03:45 Dextrose (D50w Syringe) 25 ml Q15M PRN IV DECREASED GLUCOSE; Start 08/10/16 at 03:45 Dextrose (D50w Syringe) 50 ml Q15M PRN IV DECREASED GLUCOSE; Start 08/10/16 at 03:45 Glucagon (Glucagen) 1 mg Q15M PRN IM DECREASED GLUCOSE; Start 08/10/16 at 03:45 Glucose (Glutose) 15 gm Q15M PRN BUCCAL DECREASED GLUCOSE; Start 08/10/16 at 03: 45 Miscellaneous Information (Pending [facility] Order For Wound Care) This patient melendez... PRN PRN XX WOUND CARE; Start 08/10/16 at 12:00 Metoprolol Tartrate (Lopressor) 25 mg BID PO Last administered on 08/15/16 08: 54; Admin Dose 25 MG; Start 08/10/16 at 21:00 Amiodarone HCl (Cordarone) 200 mg BID PO Last administered on 08/15/16 08:54; Admin Dose 200 MG; Start 08/10/16 at 21:00 Metoprolol Tartrate (Lopressor) 5 mg Q4H PRN IV hr>110 hold sbp<100; Start 08/10 at 14:30 Lorazepam (Ativan) 0.5 mg Q6H PRN IV ANXIETY Last administered on 08/11/16 01: 30; Admin Dose 0.5 MG; Start 08/10/16 at 23:30 Insulin Glargine (Lantus) 10 unit DAILY@20 SC Last administered on 08/14/16 21: 38; Admin Dose 10 UNIT; Start 08/12/16 at 20:00 Furosemide (Lasix) 20 mg DAILY IV Last administered on 08/15/16 08:54; Admin Dose 20 MG; Start 08/14/16 at 09:00 Cyanocobalamin 1000 mcg 1,000 mcg DAILY IM Last administered on 08/15/16 08:55 ; Admin Dose 1,000 MCG; Start 08/15/16 at 09:00; Stop 08/21/16 at 08:59 Ceftriaxone Sodium (Rocephin) 50 ml @ 100 mls/hr Q24H IVPB Last administered on 08/14/16 21:36; Admin Dose 100 MLS/HR; Start 08/14/16 at 20:00 ROBERT CORRALES Aug 15, 2016 14:03
--- NOTE | 2016-08-15 14:17 | PN ---
DATE: 08/15/2016 SUBJECTIVE: The patient has been feeling generalized weakness, has metastatic prostate cancer, under went ELIGARD injection 7.5 mg yesterday. The patient himself denies having any pain; however, earli er this morning he appears to be a little confused. OBJECTIVE: VITAL SIGNS: His temperature is 98.0, pulse is 61, respiration 20, blood pressure 131/61. LABORATORY DATA: CBC shows a white count of 5.3, hemoglobin 9.2, hematocrit 28.3. The BUN is 8, cr eatinine 0.38. Electrolytes are normal. His testosterone is 21, which is completely patient is at castrate level. The PSA is 892. The patient did receive Zometa 4 mg on 08/12/2016. IMPRESSION: Metastatic prostate cancer. Patient did receive the injection of 7.5 mg of ELIGARD and that was given yesterday. I gave it myself to him, and therefore, from a urological standpoint, he did receive his dose and he is being followed also by Dr. Sinclair for his metastatic prostate cancer and they already gave him Zometa. For now we will just keep the Montesinos catheter in and maybe will dis continue the catheter tomorrow and see if he is able to urinate. If he does not, then he may well ne ed an indwelling Montesinos catheter. Dictated By: ANGELA GRANT/CHERRY Conf#: [id number] DID#: [id number]
--- NOTE | 2016-08-15 14:59 | CONS ---
Date/Time of Note Date/Time of Note DATE: 08/15/16 TIME: 14:54 Assessment/Plan Assessment/Plan Chief Complaint/Hosp Course The patient is an 86 year old male with: # Metastatic prostate cancer, castrate resistant- pt diagnosed in [address] Huang with Lupron 22.5 mg q 3 months. Pt was given Lupron in May 2016 but PSA continues to rise. It is now >800 up from 205 in Mar 2016. Note testosterone level is low at 21 - pt was given Lupron . 7.5 mg yesterday - s/p zometa 4 mg over 15 minutes on 08/12/16 - PSA elevated to 892, pending testosterone level. PSA was up to 205 in March 2016. will plant to start Abiraterone 1000mg q day as an out patient -CT C/A/P demonstrated diffuse metastatic disease as well as left periaortic and left common iliac retroperitoneal lymph nodes are identified, likely metastatic lymphadenopathy. # Altered mental status which has resolved. - MRI brain unremarkable. CT C spine showed no evidence of cord compression but questionable evidence of leptomeningeal disease. -will not start intrathecal therapy at this time. -will start Abiraterone as stated above # Generalized weakness- MRI of L spine demonstrates : L1-L2, mild retrolisthesis, 4 mm. Also seen is moderate to severe appearing central canal stenosis,as well as apparent deformation of the cord, and increased cord T2 signal, suspicious for a small area of edema. -given concern for cord compression and patient's new bowel incontinence, will order radiation oncology consult - Outpatient bone scan 05/16/16 revealed diffuse osseous metastatic disease # Urinary retention, appreciate Dr. Huang recommendations. -cont ramirez for now # Anemia, likely related to chronic inflammation plus possible bone marrow involvement with nucleated RBCs, plus gross hematuria - Hgb 6.9 on 08/12/16, s/p 2 units pRBCs, now increased to 9.2. - iron panel showed Fe 33, TIBC low at 202, %sat 16, ferritin 630 consistent with anemia of chronic inflammation, LDH normal at 612, retic inappropriately low at 98K; Folate normal at 9.7, Vitamin B12 low at < 159. TSH normal at 1.68. Pending homocysteine and methylmalonic acid. Pending haptoglobin. - continue Vitamin B12 injection 1000 mcg daily for 7 days total # Left upper extremity swelling, - Lower extremity dopplers showed 1. No right lower extremity DVT. 2. 3.7 cm Parker's cyst in the popliteal fossa. - Bilateral upper extremity dopplers negative for DVT Problems: Consultation Date/Type/Reason Admit Date/Time Aug 09, 2016 at 23:11 Initial Consult Date 08/12/16 Type of Consultation: Oncology Reason for Consultation metastatic prostate cancer Referring Provider: CHANELLE PAUL MD 24 HR Interval Summary Free Text/Dictation no acute overnights. pt was given Lupron 7.5mg yesterday x 1 Exam/Review of Systems Vital Signs Vitals Vital Signs Date Time Temp Pulse Resp B/P Pulse Ox O2 Delivery O2 Flow Rate FiO2 08/15/16 12:29 61 08/15/16 11:11 98.0 20 131/61 94 08/14/16 06:10 Room Air 08/14/16 01:39 21 08/13/16 07:38 2.0 Intake and Output 08/14/16 08/14/16 08/15/16 15:00 23:00 07:00 Intake Total 850 ml 500 ml Output Total 1400 ml 1200 ml Balance -550 ml -700 ml Exam Constitutional: alert, oriented Psych: nl mood/affect, no complaints Head: normocephalic Eyes: nl conjunctiva ENMT: nl external ears & nose Neck: non-tender, supple Respiratory: clear to auscultation, normal air movement Cardiovascular: regular rate and rhythm Gastrointestinal: soft Musculoskeletal: nl extremities to inspection, other (LE bilateral weakness . can feel both LE but very weak. pt is incontinant of bowel and bladder) Extremities: normal pulses Results Result Diagram: 08/15/16 0630 08/15/16 0630 Results 24 hrs Laboratory Tests Test 08/14/16 17:14 08/14/16 20:55 08/15/16 01:48 08/15/16 06:30 Bedside Glucose 219 225 H 179 White Blood Count 5.3 # Red Blood Count 3.13 L Hemoglobin 9.2 L Hematocrit 28.3 L Mean Corpuscular Volume 90.4 Mean Corpuscular Hemoglobin 29.4 Mean Corpuscular Hemoglobin Concent 32.5 Red Cell Distribution Width 18.6 H Platelet Count 191 Mean Platelet Volume 8.4 Neutrophils % 68.3 Lymphocytes % 18.7 Monocytes % 8.0 Eosinophils % 2.1 Basophils % 0.6 Nucleated Red Blood Cells % 1.0 H Neutrophils # 3.6 Lymphocytes # 1.0 Monocytes # 0.4 Eosinophils # 0.1 Basophils # 0.0 Nucleated Red Blood Cells # 0.1 H Sodium Level 135 Potassium Level 3.7 Chloride Level 106 Carbon Dioxide Level 25 Anion Gap 8 Blood Urea Nitrogen 8 Creatinine 0.38 L Glucose Level 141 # Calcium Level 6.2 L Test 08/15/16 08:15 08/15/16 11:58 Bedside Glucose 158 224 H Medications Medications Current Medications Diltiazem HCl (Cardizem Iv) 5 mg Q6H PRN IV ELEVATED HEART RATE; Start 08/10/16 at 03:45 Pantoprazole (Protonix Iv) 40 mg DAILY@06 IV Last administered on 08/15/16 05: 29; Admin Dose 40 MG; Start 08/10/16 at 06:00 Acetaminophen (Tylenol Supp) 500 mg Q6H PRN [place] FEVER; Start 08/10/16 at 03:00 Miscellaneous Information 1 ea NOTE XX ; Start 08/10/16 at 03:45 Glucose (Glutose) 15 gm Q15M PRN PO DECREASED GLUCOSE; Start 08/10/16 at 03:45 Glucose (Glutose) 22.5 gm Q15M PRN PO DECREASED GLUCOSE; Start 08/10/16 at 03:45 Dextrose (D50w Syringe) 25 ml Q15M PRN IV DECREASED GLUCOSE; Start 08/10/16 at 03:45 Dextrose (D50w Syringe) 50 ml Q15M PRN IV DECREASED GLUCOSE; Start 08/10/16 at 03:45 Glucagon (Glucagen) 1 mg Q15M PRN IM DECREASED GLUCOSE; Start 08/10/16 at 03:45 Glucose (Glutose) 15 gm Q15M PRN BUCCAL DECREASED GLUCOSE; Start 08/10/16 at 03: 45 Miscellaneous Information ([facility]) This patient melendez... PRN PRN XX WOUND CARE; Start 08/10/16 at 12:00 Metoprolol Tartrate (Lopressor) 25 mg BID PO Last administered on 08/15/16 08: 54; Admin Dose 25 MG; Start 08/10/16 at 21:00 Amiodarone HCl (Cordarone) 200 mg BID PO Last administered on 08/15/16 08:54; Admin Dose 200 MG; Start 08/10/16 at 21:00 Metoprolol Tartrate (Lopressor) 5 mg Q4H PRN IV hr>110 hold sbp<100; Start 08/10 at 14:30 Lorazepam (Ativan) 0.5 mg Q6H PRN IV ANXIETY Last administered on 08/11/16 01: 30; Admin Dose 0.5 MG; Start 08/10/16 at 23:30 Insulin Glargine (Lantus) 10 unit DAILY@20 SC Last administered on 08/14/16 21: 38; Admin Dose 10 UNIT; Start 08/12/16 at 20:00 Furosemide (Lasix) 20 mg DAILY IV Last administered on 08/15/16 08:54; Admin Dose 20 MG; Start 08/14/16 at 09:00 Cyanocobalamin 1000 mcg 1,000 mcg DAILY IM Last administered on 08/15/16 08:55 ; Admin Dose 1,000 MCG; Start 08/15/16 at 09:00; Stop 08/21/16 at 08:59 Ceftriaxone Sodium (Rocephin) 50 ml @ 100 mls/hr Q24H IVPB Last administered on 08/14/16 21:36; Admin Dose 100 MLS/HR; Start 08/14/16 at 20:00 ZAHEER PRYOR M.D. Aug 15, 2016 14:59
--- NOTE | 2016-08-15 17:01 | CONS ---
Date/Time of Note Date/Time of Note DATE: 08/15/16 TIME: 17:00 Assessment/Plan Assessment/Plan Additional Assessment/Plan 1. Severe hyponatremia with a sodium 114 on admission. 2. Acute metabolic encephalopathy and fall at home secondary to severe hyponatremia. 3. Hypovolemic hyponatremia versus syndrome of inappropriate diuretic hormone. 4. Hypertension. 5. Hyperlipidemia. 6. History of prostate carcinoma. 7. History of diabetes mellitus. 8. History of bilateral knee arthritis. 9. Anemia, Iron deficiency,iron sat 16%, normal ferritin Plan: S/p 3 % saline,and S/p one dose of tolvaptan 15 gram PO x 1 dose, now Na normal today Iron saturation low but Ferritin good Other care as per PMD Cr normal, K normal will continue to follow up Consultation Date/Type/Reason Admit Date/Time Aug 09, 2016 at 23:11 Type of Consultation: NEPHROLOGY Referring Provider: CHANELLE PAUL MD 24 HR Interval Summary Free Text/Dictation pt stable,afebrile, Exam/Review of Systems Vital Signs Vitals Vital Signs Date Time Temp Pulse Resp B/P Pulse Ox O2 Delivery O2 Flow Rate FiO2 08/15/16 16:55 62 08/15/16 15:09 98.1 18 121/60 95 08/14/16 06:10 Room Air 08/14/16 01:39 21 08/13/16 07:38 2.0 Intake and Output 08/14/16 08/14/16 08/15/16 15:00 23:00 07:00 Intake Total 850 ml 500 ml Output Total 1400 ml 1200 ml Balance -550 ml -700 ml Results Result Diagram: 08/15/16 0630 08/15/16 0630 Results 24 hrs Laboratory Tests Test 08/14/16 17:14 08/14/16 20:55 08/15/16 01:48 08/15/16 06:30 Bedside Glucose 219 225 H 179 White Blood Count 5.3 # Red Blood Count 3.13 L Hemoglobin 9.2 L Hematocrit 28.3 L Mean Corpuscular Volume 90.4 Mean Corpuscular Hemoglobin 29.4 Mean Corpuscular Hemoglobin Concent 32.5 Red Cell Distribution Width 18.6 H Platelet Count 191 Mean Platelet Volume 8.4 Neutrophils % 68.3 Lymphocytes % 18.7 Monocytes % 8.0 Eosinophils % 2.1 Basophils % 0.6 Nucleated Red Blood Cells % 1.0 H Neutrophils # 3.6 Lymphocytes # 1.0 Monocytes # 0.4 Eosinophils # 0.1 Basophils # 0.0 Nucleated Red Blood Cells # 0.1 H Sodium Level 135 Potassium Level 3.7 Chloride Level 106 Carbon Dioxide Level 25 Anion Gap 8 Blood Urea Nitrogen 8 Creatinine 0.38 L Glucose Level 141 # Calcium Level 6.2 L Test 08/15/16 08:15 08/15/16 11:58 Bedside Glucose 158 224 H Medications Medications Current Medications Diltiazem HCl (Cardizem Iv) 5 mg Q6H PRN IV ELEVATED HEART RATE; Start 08/10/16 at 03:45 Pantoprazole (Protonix Iv) 40 mg DAILY@06 IV Last administered on 08/15/16 05: 29; Admin Dose 40 MG; Start 08/10/16 at 06:00 Acetaminophen (Tylenol Supp) [address] FEVER; Start 08/10/16 at 03:00 Miscellaneous Information 1 ea NOTE XX ; Start 08/10/16 at 03:45 Glucose (Glutose) 15 gm Q15M PRN PO DECREASED GLUCOSE; Start 08/10/16 at 03:45 Glucose (Glutose) 22.5 gm Q15M PRN PO DECREASED GLUCOSE; Start 08/10/16 at 03:45 Dextrose (D50w Syringe) 25 ml Q15M PRN IV DECREASED GLUCOSE; Start 08/10/16 at 03:45 Dextrose (D50w Syringe) 50 ml Q15M PRN IV DECREASED GLUCOSE; Start 08/10/16 at 03:45 Glucagon (Glucagen) 1 mg Q15M PRN IM DECREASED GLUCOSE; Start 08/10/16 at 03:45 Glucose (Glutose) 15 gm Q15M PRN BUCCAL DECREASED GLUCOSE; Start 08/10/16 at 03: 45 Miscellaneous Information (Pending [facility] Order For Wound Care) This patient melendez... PRN PRN XX WOUND CARE; Start 08/10/16 at 12:00 Metoprolol Tartrate (Lopressor) 25 mg BID PO Last administered on 08/15/16 08: 54; Admin Dose 25 MG; Start 08/10/16 at 21:00 Amiodarone HCl (Cordarone) 200 mg BID PO Last administered on 08/15/16 08:54; Admin Dose 200 MG; Start 08/10/16 at 21:00 Metoprolol Tartrate (Lopressor) 5 mg Q4H PRN IV hr>110 hold sbp<100; Start 08/10 at 14:30 Lorazepam (Ativan) 0.5 mg Q6H PRN IV ANXIETY Last administered on 08/11/16 01: 30; Admin Dose 0.5 MG; Start 08/10/16 at 23:30 Insulin Glargine (Lantus) 10 unit DAILY@20 SC Last administered on 08/14/16 21: 38; Admin Dose 10 UNIT; Start 08/12/16 at 20:00 Furosemide (Lasix) 20 mg DAILY IV Last administered on 08/15/16 08:54; Admin Dose 20 MG; Start 08/14/16 at 09:00 Cyanocobalamin 1000 mcg 1,000 mcg DAILY IM Last administered on 08/15/16 08:55 ; Admin Dose 1,000 MCG; Start 08/15/16 at 09:00; Stop 08/21/16 at 08:59 Ceftriaxone Sodium (Rocephin) 50 ml @ 100 mls/hr Q24H IVPB Last administered on 08/14/16 21:36; Admin Dose 100 MLS/HR; Start 08/14/16 at 20:00 Dexamethasone (Decadron) 4 mg TID PO ; Start 08/15/16 at 21:00 KARLENE MUÑOZ MD Aug 15, 2016 17:01
--- NOTE | 2016-08-15 17:30 | PN ---
Date/Time of Note Date/Time of Note DATE: 08/15/16 TIME: 17:25 Assessment/Plan VTE Prophylaxis VTE Prophylaxis Intervention: SCD's Lines/Catheters IV [facility] Saline Lock Urinary Cath still in place: Yes Reason Cath still needed: urinary retention Assessment/Plan Chief Complaint/Hosp Course Patient is awake alert, dynamically stable, with episode of hyperglycemia, adjust patient insulin regimen. ASSESSMENT AND PLAN: - Metastatic prostate cancer. Dr. Sinclair is following in hematology consultation. Dr. Huang is following in urology consultation. On Lupron status post Zometa. Discussed with Dr. Sinclair, pending radiation oncology evaluation. - Acute metabolic encephalopathy, resolving. - Bilateral pleural effusions - Paroxysmal atrial flutter. Dr. Ragsdale is following and cardiology consultation. - Diastolic dysfunction congestive heart failure. Continue Lasix monitor electrolytes. - Hyponatremia secondary to SIADH, resolved. Dr. Howard is following patient in nephrology consultation. Continue intravenous fluids. - Diabetes mellitus. Continue Lantus and NovoLog. - Anemia, status post blood transfusion. Continue to monitor hemoglobin and hematocrit. - Hypertension. - Urinary retention. Continue to follow up urology recommendation. Further recommendations based on clinical course. Plan of care discussed with Dr. Gregory. Problems: Exam/Review of Systems Vital Signs Vitals Vital Signs Date Time Temp Pulse Resp B/P Pulse Ox O2 Delivery O2 Flow Rate FiO2 08/15/16 16:55 62 08/15/16 15:09 98.1 18 121/60 95 08/14/16 06:10 Room Air 08/14/16 01:39 21 08/13/16 07:38 2.0 Intake and Output 08/14/16 08/14/16 08/15/16 15:00 23:00 07:00 Intake Total 850 ml 500 ml Output Total 1400 ml 1200 ml Balance -550 ml -700 ml Exam Constitutional: alert, oriented Head: normocephalic Neck: supple Respiratory: diminished breath sounds Cardiovascular: nl pulses Gastrointestinal: non-tender, soft Genitourinary - Male: other (Montesinos catheter) Extremities: normal pulses Results Result Diagram: 08/15/16 0630 08/15/16 0630 Results 24 hrs Laboratory Tests Test 08/14/16 20:55 08/15/16 01:48 08/15/16 06:30 08/15/16 08:15 Bedside Glucose 225 H 179 158 White Blood Count 5.3 # Red Blood Count 3.13 L Hemoglobin 9.2 L Hematocrit 28.3 L Mean Corpuscular Volume 90.4 Mean Corpuscular Hemoglobin 29.4 Mean Corpuscular Hemoglobin Concent 32.5 Red Cell Distribution Width 18.6 H Platelet Count 191 Mean Platelet Volume 8.4 Neutrophils % 68.3 Lymphocytes % 18.7 Monocytes % 8.0 Eosinophils % 2.1 Basophils % 0.6 Nucleated Red Blood Cells % 1.0 H Neutrophils # 3.6 Lymphocytes # 1.0 Monocytes # 0.4 Eosinophils # 0.1 Basophils # 0.0 Nucleated Red Blood Cells # 0.1 H Sodium Level 135 Potassium Level 3.7 Chloride Level 106 Carbon Dioxide Level 25 Anion Gap 8 Blood Urea Nitrogen 8 Creatinine 0.38 L Glucose Level 141 # Calcium Level 6.2 L Test 08/15/16 11:58 Bedside Glucose 224 H Medications Medications Current Medications Diltiazem HCl (Cardizem Iv) 5 mg Q6H PRN IV ELEVATED HEART RATE; Start 08/10/16 at 03:45 Pantoprazole (Protonix Iv) 40 mg DAILY@06 IV Last administered on 08/15/16t 05: 29; Admin Dose 40 MG; Start 08/10/16 at 06:00 Acetaminophen (Tylenol Supp) 500 mg Q6H PRN [place] FEVER; Start 08/10/16 at 03:00 Miscellaneous Information 1 ea NOTE XX ; Start 08/10/16 at 03:45 Glucose (Glutose) 15 gm Q15M PRN PO DECREASED GLUCOSE; Start 08/10/16 at 03:45 Glucose (Glutose) 22.5 gm Q15M PRN PO DECREASED GLUCOSE; Start 08/10/16 at 03:45 Dextrose (D50w Syringe) 25 ml Q15M PRN IV DECREASED GLUCOSE; Start 08/10/16 at 03:45 Dextrose (D50w Syringe) 50 ml Q15M PRN IV DECREASED GLUCOSE; Start 08/10/16 at 03:45 Glucagon (Glucagen) 1 mg Q15M PRN IM DECREASED GLUCOSE; Start 08/10/16 at 03:45 Glucose (Glutose) 15 gm Q15M PRN BUCCAL DECREASED GLUCOSE; Start 08/10/16 at 03: 45 Miscellaneous Information (Pending [facility] Order For Wound Care) This patient melendez... PRN PRN XX WOUND CARE; Start 08/10/16 at 12:00 Metoprolol Tartrate (Lopressor) 25 mg BID PO Last administered on 08/15/16 08: 54; Admin Dose 25 MG; Start 08/10/16 at 21:00 Amiodarone HCl (Cordarone) 200 mg BID PO Last administered on 08/15/16 08:54; Admin Dose 200 MG; Start 08/10/16 at 21:00 Metoprolol Tartrate (Lopressor) 5 mg Q4H PRN IV hr>110 hold sbp<100; Start 08/10 at 14:30 Lorazepam (Ativan) 0.5 mg Q6H PRN IV ANXIETY Last administered on 08/11/16 01: 30; Admin Dose 0.5 MG; Start 08/10/16 at 23:30 Insulin Glargine (Lantus) 10 unit DAILY@20 SC Last administered on 08/14/16 21: 38; Admin Dose 10 UNIT; Start 08/12/16 at 20:00 Furosemide (Lasix) 20 mg DAILY IV Last administered on 08/15/16 08:54; Admin Dose 20 MG; Start 08/14/16 at 09:00 Cyanocobalamin 1000 mcg 1,000 mcg DAILY IM Last administered on 08/15/16 08:55 ; Admin Dose 1,000 MCG; Start 08/15/16 at 09:00; Stop 08/21/16 at 08:59 Ceftriaxone Sodium (Rocephin) 50 ml @ 100 mls/hr Q24H IVPB Last administered on 08/14/16 21:36; Admin Dose 100 MLS/HR; Start 08/14/16 at 20:00 Dexamethasone (Decadron) 4 mg TID PO ; Start 08/15/16 at 21:00 ROBERT CORRALES Aug 15, 2016 17:30
[2016-08-15] MEDS: CEFTRIAXONE 1 GM/50 ML (PMX) 50 ML IVPB SCH (20:17)
[2016-08-15] MEDS: DEXAMETHASONE 4 MG TAB PO SCH (20:18)
[2016-08-15] MEDS: INSULIN GLARGINE [LANtus] 3 ML PEN SC SCH (20:59)
[2016-08-15] MEDS ORDERED: INSULIN GLARGINE [LANtus] 3 ML PEN SC ONE (21:30)
[2016-08-16] MEDS: PANTOPRAZOLE 40 MG INJ IV SCH (06:30)
[2016-08-16 07:03] LABS: ADD SCAN DIFF NO
[2016-08-16 07:08] LABS: BASOPHILS % 0.3 % (0.0-2.0); HEMATOCRIT 29.9 % (42.0-52.0); HEMOGLOBIN 9.7 g/dl (14.0-18.0); LYMPHOCYTES # 1.2 10^3/ul (0.8-2.9); LYMPHOCYTES % 20.6 % (15.0-51.0); MEAN CORPUSCULAR HEMOGLOBIN 29.2 pg (29.0-33.0); MEAN CORPUSCULAR HGB CONC 32.4 g/dl (32.0-37.0); MEAN CORPUSCULAR VOLUME 90.1 fl (82.0-101.0); MEAN PLATELET VOLUME 9.2 fl (7.4-10.4); MONOCYTE # 0.2 10^3/ul (0.3-0.9); MONOCYTES % 3.5 % (0.0-11.0); NEUTROPHIL # 4.2 10^3/ul (1.6-7.5); NEUTROPHILS % 73.5 % (39.0-77.0); PLATELET COUNT 198 10^3/UL (140-415); RED BLOOD COUNT 3.32 10^6/ul (4.70-6.10); WHITE BLOOD COUNT 5.8 10^3/ul (4.8-10.8)
[2016-08-16 07:33] LABS: ALBUMIN 2.8 g/dl (3.3-4.9); ALBUMIN/GLOBULIN RATIO 1.12; BILIRUBIN,INDIRECT 0.1 mg/dl (0-1.1); BILIRUBIN,TOTAL 0.1 mg/dl (0.2-1.3); CALCIUM 6.5 mg/dl (8.4-10.2); CREATININE 0.39 mg/dl (0.61-1.24); TOTAL PROTEIN 5.3 g/dl (6.1-8.1)
[2016-08-16 07:43] LABS: INR 1.22; PROTIME 15.5 Sec (12.2-14.2); PT RATIO 1.2
[2016-08-16 07:51] LABS: PARTIAL THROMBOPLASTIN TIME 30.3 Sec (25.0-35.0)
[2016-08-16 07:53] VITALS: BP 144/65; RESP 18
[2016-08-16] MEDS: INSULIN ASPART [NOVOLOG] 3 ML PEN SC SCH ×3 (08:46→17:21)
[2016-08-16] MEDS: Insulin NOVOLOG SS MILD Algorithm (SS with meals and bedtime) SC SCH ×4 (08:46→20:55)
[2016-08-16] MEDS: METOPROLOL 25 MG TAB PO SCH ×2 (10:10→20:46)
[2016-08-16] MEDS: AMIODARONE 200 MG TAB PO SCH ×2 (10:10→20:47)
[2016-08-16] MEDS: CYANOCOBALAMIN 1000 MCG INJ IM SCH (10:10)
[2016-08-16] MEDS: FUROSEMIDE 20 MG INJ IV SCH (10:11)
[2016-08-16] MEDS: DEXAMETHASONE 4 MG TAB PO SCH ×3 (10:11→20:45)
--- NOTE | 2016-08-16 10:17 | CONS ---
Date/Time of Note Date/Time of Note DATE: 08/16/16 TIME: 10:15 Assessment/Plan Assessment/Plan Additional Assessment/Plan 1. Severe hyponatremia with a sodium 114 on admission. 2. Acute metabolic encephalopathy and fall at home secondary to severe hyponatremia. 3. Hypovolemic hyponatremia versus syndrome of inappropriate diuretic hormone. 4. Hypertension. 5. Hyperlipidemia. 6. History of prostate carcinoma. 7. History of diabetes mellitus. 8. History of bilateral knee arthritis. 9. Anemia, Iron deficiency,iron sat 16%, normal ferritin Plan: S/p 3 % saline,and S/p one dose of tolvaptan 15 gram PO x 1 dose, now Na normal today Cr normal, K normal will continue to follow up Consultation Date/Type/Reason Admit Date/Time Aug 09, 2016 at 23:11 Type of Consultation: NEPHROLOGY Referring Provider: CHANELLE PAUL MD 24 HR Interval Summary Free Text/Dictation pt stable Exam/Review of Systems Vital Signs Vitals Vital Signs Date Time Temp Pulse Resp B/P Pulse Ox O2 Delivery O2 Flow Rate FiO2 08/16/16 07:53 98.0 62 18 144/65 98 08/14/16 06:10 Room Air 08/14/16 01:39 21 08/13/16 07:38 2.0 Intake and Output 08/15/16 08/15/16 08/16/16 15:00 23:00 07:00 Intake Total 920 ml Output Total 1350 ml Balance -430 ml Results Result Diagram: 08/16/16 0630 08/16/16 0630 Results 24 hrs Laboratory Tests Test 08/15/16 11:58 08/15/16 17:53 08/15/16 20:16 08/15/16 23:10 Bedside Glucose 224 H 230 H 369 H 215 Test 08/16/16 03:17 08/16/16 06:30 08/16/16 08:29 Bedside Glucose 143 143 White Blood Count 5.8 Red Blood Count 3.32 L Hemoglobin 9.7 L Hematocrit 29.9 L Mean Corpuscular Volume 90.1 Mean Corpuscular Hemoglobin 29.2 Mean Corpuscular Hemoglobin Concent 32.4 Red Cell Distribution Width 18.0 H Platelet Count 198 Mean Platelet Volume 9.2 Neutrophils % 73.5 Lymphocytes % 20.6 Monocytes % 3.5 Eosinophils % 0.0 Basophils % 0.3 Nucleated Red Blood Cells % 0.0 Neutrophils # 4.2 Lymphocytes # 1.2 Monocytes # 0.2 L Eosinophils # 0.0 Basophils # 0.0 Nucleated Red Blood Cells # 0.0 Prothrombin Time 15.5 H Prothrombin Time Ratio 1.2 INR International Normalized Ratio 1.22 Activated Partial Thromboplast Time 30.3 Sodium Level 136 Potassium Level 4.0 Chloride Level 106 Carbon Dioxide Level 23 Anion Gap 11 Blood Urea Nitrogen 9 Creatinine 0.39 L Glucose Level 144 Calcium Level 6.5 L Total Bilirubin 0.1 L Direct Bilirubin 0.00 Indirect Bilirubin 0.1 Aspartate Amino Transf (AST/SGOT) 35 Alanine Aminotransferase (ALT/SGPT) 34 Alkaline Phosphatase 799 H Total Protein 5.3 L Albumin 2.8 L Globulin 2.50 Albumin/Globulin Ratio 1.12 Medications Medications Current Medications Diltiazem HCl (Cardizem Iv) 5 mg Q6H PRN IV ELEVATED HEART RATE; Start 08/10/16 at 03:45 Pantoprazole (Protonix Iv) 40 mg DAILY@06 IV Last administered on 08/16/16t 06: 30; Admin Dose 40 MG; Start 08/10/16 at 06:00 Acetaminophen (Tylenol Supp) 500 mg Q6H PRN [place] FEVER; Start 08/10/16 at 03:00 Miscellaneous Information 1 ea NOTE XX ; Start 08/10/16 at 03:45 Glucose (Glutose) 15 gm Q15M PRN PO DECREASED GLUCOSE; Start 08/10/16 at 03:45 Glucose (Glutose) 22.5 gm Q15M PRN PO DECREASED GLUCOSE; Start 08/10/16 at 03:45 Dextrose (D50w Syringe) 25 ml Q15M PRN IV DECREASED GLUCOSE; Start 08/10/16 at 03:45 Dextrose (D50w Syringe) 50 ml Q15M PRN IV DECREASED GLUCOSE; Start 08/10/16 at 03:45 Glucagon (Glucagen) 1 mg Q15M PRN IM DECREASED GLUCOSE; Start 08/10/16 at 03:45 Glucose (Glutose) 15 gm Q15M PRN BUCCAL DECREASED GLUCOSE; Start 08/10/16 at 03: 45 Miscellaneous Information (Pending [facility] Order For Wound Care) This patient melendez... PRN PRN XX WOUND CARE; Start 08/10/16 at 12:00 Metoprolol Tartrate (Lopressor) 25 mg BID PO Last administered on 08/15/16 20: 17; Admin Dose 25 MG; Start 08/10/16 at 21:00 Amiodarone HCl (Cordarone) 200 mg BID PO Last administered on 08/15/16 20:18; Admin Dose 200 MG; Start 08/10/16 at 21:00 Metoprolol Tartrate (Lopressor) 5 mg Q4H PRN IV hr>110 hold sbp<100; Start 08/10 at 14:30 Lorazepam (Ativan) 0.5 mg Q6H PRN IV ANXIETY Last administered on 08/11/16 01: 30; Admin Dose 0.5 MG; Start 08/10/16 at 23:30 Furosemide (Lasix) 20 mg DAILY IV Last administered on 08/15/16 08:54; Admin Dose 20 MG; Start 08/14/16 at 09:00 Cyanocobalamin 1000 mcg 1,000 mcg DAILY IM Last administered on 08/15/16 08:55 ; Admin Dose 1,000 MCG; Start 08/15/16 at 09:00; Stop 08/21/16 at 08:59 Ceftriaxone Sodium (Rocephin) 50 ml @ 100 mls/hr Q24H IVPB Last administered on 08/15/16 20:17; Admin Dose 100 MLS/HR; Start 08/14/16 at 20:00 Dexamethasone (Decadron) 4 mg TID PO Last administered on 08/15/16 20:18; Admin Dose 4 MG; Start 08/15/16 at 21:00 Insulin Glargine (Lantus) 16 unit DAILY@20 SC ; Start 08/16/16 at 20:00 Insulin Human NPH (Humulin N) 16 unit TID SC ; Start 08/16/16 at 09:00 KARLENE MUÑOZ MD Aug 16, 2016 10:17
[2016-08-16] MEDS: NPH, HUMAN INSULIN ISOPHANE 3ML VIAL SC SCH ×3 (10:20→20:54)
[2016-08-16 12:01] VITALS: BP 137/73; RESP 18
--- NOTE | 2016-08-16 13:23 | CONS ---
Date/Time of Note Date/Time of Note DATE: 08/16/16 TIME: 13:21 Assessment/Plan Assessment/Plan Chief Complaint/Hosp Course IMPRESSION: 1. Paroxysmal atrial flutter, remains in sinus rhythm at this time 2. Abnl electrocardiogram, assess for acute coronary syndrome. -negative troponin x 3 3. Congestive heart failure by chest x-ray, diastolic, likely acute on chronic. -EF normal by echo this admit 4. Hypertension under reasonable control with episodes of borderline hypotension. 5. Altered mental state/encephalopathy. 6. Hyponatremia-improved s/p dose of tolvaptan 7. Urinary tract infection. 8. Anemia. 9. PLeural effusions bilateral 10.Prostate ca-metastatic Recc: -Tele -serial ecg's -Continue BB/amio -Follow rhythm closely -Not on systemic anti-coag given anemia requiring transfusions. -Continue gentle lasix diuresis and follow na closely Problems: Consultation Date/Type/Reason Admit Date/Time Aug 09, 2016 at 23:11 Initial Consult Date 08/12/16 Type of Consultation: cardiology Reason for Consultation PAFL Referring Provider: CHANELLE PAUL MD Exam/Review of Systems Vital Signs Vitals Vital Signs Date Time Temp Pulse Resp B/P Pulse Ox O2 Delivery O2 Flow Rate FiO2 08/16/16 12:01 97.2 70 18 137/73 97 08/14/16 06:10 Room Air 08/14/16 01:39 21 08/13/16 07:38 2.0 Intake and Output 08/15/16 08/15/16 08/16/16 15:00 23:00 07:00 Intake Total 920 ml Output Total 1350 ml Balance -430 ml Exam Review of Systems: CONSTITUTIONAL: No fevers, chills. PULMONARY: No sob CARDIOVASCULAR: No chest pain/palpitations GASTROINTESTINAL: No nausea/vomiting. GENITOURINARY: No hematuria/dysuria. MUSCULOSKELETAL: No myagias/arthalgias. PSYCHIATRIC: The patient denies depression. NEUROLOGIC: No weakness Constitutional: alert Psych: no complaints Head: normocephalic ENMT: mucosa pink and moist Neck: jvd (8-9 cm water), supple Respiratory: clear to auscultation Cardiovascular: regular rate and rhythm Gastrointestinal: non-tender, soft Musculoskeletal: muscle tone (normal) Neurological: other (No focal deficits) Results Result Diagram: 08/16/16 0630 08/16/16 0630 Results 24 hrs Laboratory Tests Test 08/15/16 17:53 08/15/16 20:16 08/15/16 23:10 08/16/16 03:17 Bedside Glucose 230 H 369 H 215 143 Test 08/16/16 06:30 08/16/16 08:29 08/16/16 11:50 White Blood Count 5.8 Red Blood Count 3.32 L Hemoglobin 9.7 L Hematocrit 29.9 L Mean Corpuscular Volume 90.1 Mean Corpuscular Hemoglobin 29.2 Mean Corpuscular Hemoglobin Concent 32.4 Red Cell Distribution Width 18.0 H Platelet Count 198 Mean Platelet Volume 9.2 Neutrophils % 73.5 Lymphocytes % 20.6 Monocytes % 3.5 Eosinophils % 0.0 Basophils % 0.3 Nucleated Red Blood Cells % 0.0 Neutrophils # 4.2 Lymphocytes # 1.2 Monocytes # 0.2 L Eosinophils # 0.0 Basophils # 0.0 Nucleated Red Blood Cells # 0.0 Prothrombin Time 15.5 H Prothrombin Time Ratio 1.2 INR International Normalized Ratio 1.22 Activated Partial Thromboplast Time 30.3 Sodium Level 136 Potassium Level 4.0 Chloride Level 106 Carbon Dioxide Level 23 Anion Gap 11 Blood Urea Nitrogen 9 Creatinine 0.39 L Glucose Level 144 Calcium Level 6.5 L Total Bilirubin 0.1 L Direct Bilirubin 0.00 Indirect Bilirubin 0.1 Aspartate Amino Transf (AST/SGOT) 35 Alanine Aminotransferase (ALT/SGPT) 34 Alkaline Phosphatase 799 H Total Protein 5.3 L Albumin 2.8 L Globulin 2.50 Albumin/Globulin Ratio 1.12 Bedside Glucose 143 239 H Medications Medications Current Medications Diltiazem HCl (Cardizem Iv) 5 mg Q6H PRN IV ELEVATED HEART RATE; Start 08/10/16 at 03:45 Pantoprazole (Protonix Iv) 40 mg DAILY@06 IV Last administered on 08/16/16t 06: 30; Admin Dose 40 MG; Start 08/10/16 at 06:00 Acetaminophen (Tylenol Supp) 500 mg Q6H PRN [place] FEVER; Start 08/10/16 at 03:00 Miscellaneous Information 1 ea NOTE XX ; Start 08/10/16 at 03:45 Glucose (Glutose) 15 gm Q15M PRN PO DECREASED GLUCOSE; Start 08/10/16 at 03:45 Glucose (Glutose) 22.5 gm Q15M PRN PO DECREASED GLUCOSE; Start 08/10/16 at 03:45 Dextrose (D50w Syringe) 25 ml Q15M PRN IV DECREASED GLUCOSE; Start 08/10/16 at 03:45 Dextrose (D50w Syringe) 50 ml Q15M PRN IV DECREASED GLUCOSE; Start 08/10/16 at 03:45 Glucagon (Glucagen) 1 mg Q15M PRN IM DECREASED GLUCOSE; Start 08/10/16 at 03:45 Glucose (Glutose) 15 gm Q15M PRN BUCCAL DECREASED GLUCOSE; Start 08/10/16 at 03: 45 Miscellaneous Information (Pending Santyl Order For Wound Care) This patient melendez... PRN PRN XX WOUND CARE; Start 08/10/16 at 12:00 Metoprolol Tartrate (Lopressor) 25 mg BID PO Last administered on 08/16/16 10: 10; Admin Dose 25 MG; Start 08/10/16 at 21:00 Amiodarone HCl (Cordarone) 200 mg BID PO Last administered on 08/16/16 10:10; Admin Dose 200 MG; Start 08/10/16 at 21:00 Metoprolol Tartrate (Lopressor) 5 mg Q4H PRN IV hr>110 hold sbp<100; Start 08/10 at 14:30 Lorazepam (Ativan) 0.5 mg Q6H PRN IV ANXIETY Last administered on 08/11/16 01: 30; Admin Dose 0.5 MG; Start 08/10/16 at 23:30 Furosemide (Lasix) 20 mg DAILY IV Last administered on 08/16/16 10:11; Admin Dose 20 MG; Start 08/14/16 at 09:00 Cyanocobalamin 1000 mcg 1,000 mcg DAILY IM Last administered on 08/16/16 10:10 ; Admin Dose 1,000 MCG; Start 08/15/16 at 09:00; Stop 08/21/16 at 08:59 Ceftriaxone Sodium (Rocephin) 50 ml @ 100 mls/hr Q24H IVPB Last administered on 08/15/16 20:17; Admin Dose 100 MLS/HR; Start 08/14/16 at 20:00 Dexamethasone (Decadron) 4 mg TID PO Last administered on 08/16/16 10:11; Admin Dose 4 MG; Start 08/15/16 at 21:00 Insulin Glargine (Lantus) 16 unit DAILY@20 SC ; Start 08/16/16 at 20:00 Insulin Human NPH (Humulin N) 16 unit TID SC Last administered on 08/16/16 12: 01; Admin Dose 16 UNIT; Start 08/16/16 at 09:00 ROIS ROBERTSON Aug 16, 2016 13:22
--- NOTE | 2016-08-16 15:02 | CONS ---
Date/Time of Note Date/Time of Note DATE: 08/16/16 TIME: 14:56 Assessment/Plan Assessment/Plan Chief Complaint/Hosp Course The patient is an 86 year old male with: # Metastatic prostate cancer, castrate resistant- pt diagnosed in [address] Huang with Lupron 22.5 mg q 3 months. Pt was given Lupron in May 2016 but PSA continues to rise. It is now >800 up from 205 in Mar 2016. Note testosterone level is low at 21 - pt was given Lupron . 7.5 mg yesterday - s/p zometa 4 mg over 15 minutes on 08/12/16 - PSA elevated to 892, pending testosterone level. PSA was up to 205 in March 2016. will plant to start Abiraterone 1000mg q day as an out patient -CT C/A/P demonstrated diffuse metastatic disease as well as left periaortic and left common iliac retroperitoneal lymph nodes are identified, likely metastatic lymphadenopathy. # Altered mental status which has resolved. - MRI brain unremarkable. CT C spine showed no evidence of cord compression but questionable evidence of leptomeningeal disease. -will not start intrathecal therapy at this time. -will start Abiraterone as stated above # Generalized weakness- MRI of L spine demonstrates : L1-L2, mild retrolisthesis, 4 mm. Also seen is moderate to severe appearing central canal stenosis,as well as apparent deformation of the cord, and increased cord T2 signal, suspicious for a small area of edema. -given concern for cord compression radiation oncology was called. they are going to review the scan to see if this is in fact cord compression that needs emergent XRT. The history from the family is confusing as some say his symptoms are acute while others say he has been in this same physical state since last January - Outpatient bone scan 05/16/16 revealed diffuse osseous metastatic disease # Urinary retention, appreciate Dr. Huang recommendations. -cont ramirez for now # Anemia, likely related to chronic inflammation plus possible bone marrow involvement with nucleated RBCs, plus gross hematuria - Hgb 6.9 on 08/12/16, s/p 2 units pRBCs, now increased to 9.2. - iron panel showed Fe 33, TIBC low at 202, %sat 16, ferritin 630 consistent with anemia of chronic inflammation, LDH normal at 612, retic inappropriately low at 98K; Folate normal at 9.7, Vitamin B12 low at < 159. TSH normal at 1.68. Pending homocysteine and methylmalonic acid. Pending haptoglobin. - continue Vitamin B12 injection 1000 mcg daily for 7 days total # Left upper extremity swelling, - Lower extremity dopplers showed 1. No right lower extremity DVT. 2. 3.7 cm Parker's cyst in the popliteal fossa. - Bilateral upper extremity dopplers negative for DVT Problems: (1) Metastatic malignant neoplasm to prostate Status: Acute (2) Hyponatremia Status: Acute Consultation Date/Type/Reason Admit Date/Time Aug 09, 2016 at 23:11 Initial Consult Date 08/12/16 Type of Consultation: oncology Reason for Consultation metastatic prostate cancer Referring Provider: CHANELLE PAUL MD 24 HR Interval Summary Free Text/Dictation no acute overnight events. pt is able to move legs but has extreme weakness. per son patient was incontinent of bowel and bladder but of further history it appears this may be secondary to constipation and prostate issues Exam/Review of Systems Vital Signs Vitals Vital Signs Date Time Temp Pulse Resp B/P Pulse Ox O2 Delivery O2 Flow Rate FiO2 08/16/16 12:01 97.2 70 18 137/73 97 08/14/16 06:10 Room Air 08/14/16 01:39 21 08/13/16 07:38 2.0 Intake and Output 08/15/16 08/15/16 08/16/16 15:00 23:00 07:00 Intake Total 920 ml Output Total 1350 ml Balance -430 ml Exam Constitutional: alert, oriented Psych: no complaints Head: normocephalic Eyes: nl conjunctiva ENMT: nl external ears & nose Neck: non-tender, supple Respiratory: clear to auscultation Cardiovascular: regular rate and rhythm Gastrointestinal: soft Musculoskeletal: muscle weakness, nl extremities to inspection, nl gait and stance Extremities: normal pulses Results Result Diagram: 08/16/16 0630 08/16/16 0630 Results 24 hrs Laboratory Tests Test 08/15/16 17:53 08/15/16 20:16 08/15/16 23:10 08/16/16 03:17 Bedside Glucose 230 H 369 H 215 143 Test 08/16/16 06:30 08/16/16 08:29 08/16/16 11:50 White Blood Count 5.8 Red Blood Count 3.32 L Hemoglobin 9.7 L Hematocrit 29.9 L Mean Corpuscular Volume 90.1 Mean Corpuscular Hemoglobin 29.2 Mean Corpuscular Hemoglobin Concent 32.4 Red Cell Distribution Width 18.0 H Platelet Count 198 Mean Platelet Volume 9.2 Neutrophils % 73.5 Lymphocytes % 20.6 Monocytes % 3.5 Eosinophils % 0.0 Basophils % 0.3 Nucleated Red Blood Cells % 0.0 Neutrophils # 4.2 Lymphocytes # 1.2 Monocytes # 0.2 L Eosinophils # 0.0 Basophils # 0.0 Nucleated Red Blood Cells # 0.0 Prothrombin Time 15.5 H Prothrombin Time Ratio 1.2 INR International Normalized Ratio 1.22 Activated Partial Thromboplast Time 30.3 Sodium Level 136 Potassium Level 4.0 Chloride Level 106 Carbon Dioxide Level 23 Anion Gap 11 Blood Urea Nitrogen 9 Creatinine 0.39 L Glucose Level 144 Calcium Level 6.5 L Total Bilirubin 0.1 L Direct Bilirubin 0.00 Indirect Bilirubin 0.1 Aspartate Amino Transf (AST/SGOT) 35 Alanine Aminotransferase (ALT/SGPT) 34 Alkaline Phosphatase 799 H Total Protein 5.3 L Albumin 2.8 L Globulin 2.50 Albumin/Globulin Ratio 1.12 Bedside Glucose 143 239 H Medications Medications Current Medications Diltiazem HCl (Cardizem Iv) 5 mg Q6H PRN IV ELEVATED HEART RATE; Start 08/10/16 at 03:45 Pantoprazole (Protonix Iv) 40 mg DAILY@06 IV Last administered on 08/16/16t 06: 30; Admin Dose 40 MG; Start 08/10/16 at 06:00 Acetaminophen (Tylenol Supp) 500 mg Q6H PRN [place] FEVER; Start 08/10/16 at 03:00 Miscellaneous Information 1 ea NOTE XX ; Start 08/10/16 at 03:45 Glucose (Glutose) 15 gm Q15M PRN PO DECREASED GLUCOSE; Start 08/10/16 at 03:45 Glucose (Glutose) 22.5 gm Q15M PRN PO DECREASED GLUCOSE; Start 08/10/16 at 03:45 Dextrose (D50w Syringe) 25 ml Q15M PRN IV DECREASED GLUCOSE; Start 08/10/16 at 03:45 Dextrose (D50w Syringe) 50 ml Q15M PRN IV DECREASED GLUCOSE; Start 08/10/16 at 03:45 Glucagon (Glucagen) 1 mg Q15M PRN IM DECREASED GLUCOSE; Start 08/10/16 at 03:45 Glucose (Glutose) 15 gm Q15M PRN BUCCAL DECREASED GLUCOSE; Start 08/10/16 at 03: 45 [facility] This patient melendez... PRN PRN XX WOUND CARE; Start 08/10/16 at 12:00 Metoprolol Tartrate (Lopressor) 25 mg BID PO Last administered on 08/16/16 10: 10; Admin Dose 25 MG; Start 08/10/16 at 21:00 Amiodarone HCl (Cordarone) 200 mg BID PO Last administered on 08/16/16 10:10; Admin Dose 200 MG; Start 08/10/16 at 21:00 Metoprolol Tartrate (Lopressor) 5 mg Q4H PRN IV hr>110 hold sbp<100; Start 08/10 at 14:30 Lorazepam (Ativan) 0.5 mg Q6H PRN IV ANXIETY Last administered on 08/11/16 01: 30; Admin Dose 0.5 MG; Start 08/10/16 at 23:30 Furosemide (Lasix) 20 mg DAILY IV Last administered on 08/16/16 10:11; Admin Dose 20 MG; Start 08/14/16 at 09:00 Cyanocobalamin 1000 mcg 1,000 mcg DAILY IM Last administered on 08/16/16 10:10 ; Admin Dose 1,000 MCG; Start 08/15/16 at 09:00; Stop 08/21/16 at 08:59 Ceftriaxone Sodium (Rocephin) 50 ml @ 100 mls/hr Q24H IVPB Last administered on 08/15/16 20:17; Admin Dose 100 MLS/HR; Start 08/14/16 at 20:00 Dexamethasone (Decadron) 4 mg TID PO Last administered on 08/16/16 12:10; Admin Dose 4 MG; Start 08/15/16 at 21:00 Insulin Glargine (Lantus) 16 unit DAILY@20 SC ; Start 08/16/16 at 20:00 Insulin Human NPH (Humulin N) 16 unit TID SC Last administered on 08/16/16 12: 01; Admin Dose 16 UNIT; Start 08/16/16 at 09:00 ZAHEER PRYOR M.D. Aug 16, 2016 15:02
[2016-08-16 16:01] VITALS: BP 125/60; RESP 18
--- NOTE | 2016-08-16 17:01 | PN ---
Date/Time of Note Date/Time of Note DATE: 08/16/16 TIME: 16:59 Assessment/Plan VTE Prophylaxis VTE Prophylaxis Intervention: other Lines/Catheters IV [facility] Saline Lock Urinary Cath still in place: No Assessment/Plan Assessment/Plan - Metastatic prostate cancer. Dr. Sinclair is following in hematology consultation. Dr. Huang is following in urology consultation. On Lupron status post Zometa. Discussed with Dr. Sinclair, pending radiation oncology evaluation. - Acute metabolic encephalopathy, resolving. - Bilateral pleural effusions - Paroxysmal atrial flutter. Dr. Ragsdale is following and cardiology consultation. - Diastolic dysfunction congestive heart failure. Continue Lasix monitor electrolytes. - Hyponatremia secondary to SIADH, resolved. Dr. Howard is following patient in nephrology consultation. Continue intravenous fluids. - Diabetes mellitus. Continue Lantus and NovoLog. - Anemia, status post blood transfusion. Continue to monitor hemoglobin and hematocrit. - Hypertension. - Urinary retention. Continue to follow up urology recommendation. Further recommendations based on clinical course. Plan of care discussed with Dr. Gregory. Subjective 24 Hr Interval Summary Free Text/Dictation NAD, afebrile, per family patient is less confused, dw staff. Cardiovascular: no complaints Exam/Review of Systems Vital Signs Vitals Vital Signs Date Time Temp Pulse Resp B/P Pulse Ox O2 Delivery O2 Flow Rate FiO2 08/16/16 16:01 98.0 57 18 125/60 98 08/14/16 06:10 Room Air 08/14/16 01:39 21 08/13/16 07:38 2.0 Intake and Output 08/15/16 08/15/16 08/16/16 15:00 23:00 07:00 Intake Total 920 ml Output Total 1350 ml Balance -430 ml Exam Constitutional: alert Respiratory: clear to auscultation Cardiovascular: nl pulses, regular rate and rhythm Musculoskeletal: nl extremities to inspection Extremities: normal pulses Results Result Diagram: 08/16/16 0630 08/16/16 0630 Results 24 hrs Laboratory Tests Test 08/15/16 17:53 08/15/16 20:16 08/15/16 23:10 08/16/16 03:17 Bedside Glucose 230 H 369 H 215 143 Test 08/16/16 06:30 08/16/16 08:29 08/16/16 11:50 White Blood Count 5.8 Red Blood Count 3.32 L Hemoglobin 9.7 L Hematocrit 29.9 L Mean Corpuscular Volume 90.1 Mean Corpuscular Hemoglobin 29.2 Mean Corpuscular Hemoglobin Concent 32.4 Red Cell Distribution Width 18.0 H Platelet Count 198 Mean Platelet Volume 9.2 Neutrophils % 73.5 Lymphocytes % 20.6 Monocytes % 3.5 Eosinophils % 0.0 Basophils % 0.3 Nucleated Red Blood Cells % 0.0 Neutrophils # 4.2 Lymphocytes # 1.2 Monocytes # 0.2 L Eosinophils # 0.0 Basophils # 0.0 Nucleated Red Blood Cells # 0.0 Prothrombin Time 15.5 H Prothrombin Time Ratio 1.2 INR International Normalized Ratio 1.22 Activated Partial Thromboplast Time 30.3 Sodium Level 136 Potassium Level 4.0 Chloride Level 106 Carbon Dioxide Level 23 Anion Gap 11 Blood Urea Nitrogen 9 Creatinine 0.39 L Glucose Level 144 Calcium Level 6.5 L Total Bilirubin 0.1 L Direct Bilirubin 0.00 Indirect Bilirubin 0.1 Aspartate Amino Transf (AST/SGOT) 35 Alanine Aminotransferase (ALT/SGPT) 34 Alkaline Phosphatase 799 H Total Protein 5.3 L Albumin 2.8 L Globulin 2.50 Albumin/Globulin Ratio 1.12 Bedside Glucose 143 239 H Medications Medications Current Medications Diltiazem HCl (Cardizem Iv) 5 mg Q6H PRN IV ELEVATED HEART RATE; Start 08/10/16 at 03:45 Pantoprazole (Protonix Iv) 40 mg DAILY@06 IV Last administered on 08/16/16t 06: 30; Admin Dose 40 MG; Start 08/10/16 at 06:00 Acetaminophen (Tylenol Supp) 500 mg Q6H PRN [place] FEVER; Start 08/10/16 at 03:00 Miscellaneous Information 1 ea NOTE XX ; Start 08/10/16 at 03:45 Glucose (Glutose) 15 gm Q15M PRN PO DECREASED GLUCOSE; Start 08/10/16 at 03:45 Glucose (Glutose) 22.5 gm Q15M PRN PO DECREASED GLUCOSE; Start 08/10/16 at 03:45 Dextrose (D50w Syringe) 25 ml Q15M PRN IV DECREASED GLUCOSE; Start 08/10/16 at 03:45 Dextrose (D50w Syringe) 50 ml Q15M PRN IV DECREASED GLUCOSE; Start 08/10/16 at 03:45 Glucagon (Glucagen) 1 mg Q15M PRN IM DECREASED GLUCOSE; Start 08/10/16 at 03:45 Glucose (Glutose) 15 gm Q15M PRN BUCCAL DECREASED GLUCOSE; Start 08/10/16 at 03: 45 [facility] This patient melendez... PRN PRN XX WOUND CARE; Start 08/10/16 at 12:00 Metoprolol Tartrate (Lopressor) 25 mg BID PO Last administered on 08/16/16 10: 10; Admin Dose 25 MG; Start 08/10/16 at 21:00 Amiodarone HCl (Cordarone) 200 mg BID PO Last administered on 08/16/16 10:10; Admin Dose 200 MG; Start 08/10/16 at 21:00 Metoprolol Tartrate (Lopressor) 5 mg Q4H PRN IV hr>110 hold sbp<100; Start 08/10 at 14:30 Lorazepam (Ativan) 0.5 mg Q6H PRN IV ANXIETY Last administered on 08/11/16 01: 30; Admin Dose 0.5 MG; Start 08/10/16 at 23:30 Furosemide (Lasix) 20 mg DAILY IV Last administered on 08/16/16 10:11; Admin Dose 20 MG; Start 08/14/16 at 09:00 Cyanocobalamin 1000 mcg 1,000 mcg DAILY IM Last administered on 08/16/16 10:10 ; Admin Dose 1,000 MCG; Start 08/15/16 at 09:00; Stop 08/21/16 at 08:59 Ceftriaxone Sodium (Rocephin) 50 ml @ 100 mls/hr Q24H IVPB Last administered on 08/15/16 20:17; Admin Dose 100 MLS/HR; Start 08/14/16 at 20:00 Dexamethasone (Decadron) 4 mg TID PO Last administered on 08/16/16 12:10; Admin Dose 4 MG; Start 08/15/16 at 21:00 Insulin Glargine (Lantus) 16 unit DAILY@20 SC ; Start 08/16/16 at 20:00 Insulin Human NPH (Humulin N) 16 unit TID SC Last administered on 08/16/16 12: 01; Admin Dose 16 UNIT; Start 08/16/16 at 09:00 BIBIANA DUKE Aug 16, 2016 17:01
--- NOTE | 2016-08-16 19:03 | PN ---
DATE: 08/16/2016 SUBJECTIVE: The patient did have hematuria before and needed an indwelling Montesinos catheter and in fa ct, the initial Montesinos catheter that he had probably the balloon was inflated into the urethra and th e patient pulled it out with the balloon inflated. I have later on to dilate him and insert a new F oley catheter. The urine remained clear. Therefore, I had the catheter removed this morning. The patient does have metastatic prostate cancer and I gave him an injection of Eligard 2 days ago and hermes anderson is also followed by Dr. Sinclair in oncology consultation. PHYSICAL EXAMINATION: VITAL SIGNS: His temperature today is 98.0, blood pressure 125/60. The pulse is 57, respirations 1 8. The patient is able to move all his extremities. The Montesinos catheter has been removed and he has bee n voiding. He is, however, incontinent and the last time he voided was a few minutes back and the b ladder scan showed about 43 mL and the patient voided about 40 in addition to what he went in bed. The urine has been clear, however. LABORATORY DATA: His CBC shows a white count of 5.8, hemoglobin 9.7, hematocrit 29.9. BUN is 9, cr eatinine 0.39. Electrolytes are normal. IMPRESSION: Metastatic prostate cancer. Patient is undergoing treatment for that. The patient did have hematuria that most likely was traumatic and that has cleared since we put the catheter in and once the urine turned clear, we removed the catheter and he has voided and his postvoid residual is not high to require any further catheterization. Plan is to continue to monitor his urine and at t he present he is treated medically. As far as his metastatic prostate cancer, he is also being foll owed by Dr. Sinclair, who would plan additional treatment for him as an outpatient. Dictated By: ANGELA GRANT/CHERRY Conf#: [id number] DID#: [id number]
[2016-08-16 20:48] VITALS: BP 161/70; RESP 18
[2016-08-16] MEDS: CEFTRIAXONE 1 GM/50 ML (PMX) 50 ML IVPB SCH (20:49)
[2016-08-16] MEDS: INSULIN GLARGINE [LANtus] 3 ML PEN SC SCH (20:54)
[2016-08-17 00:13] VITALS: BP 140/67; RESP 19
[2016-08-17 04:06] VITALS: BP 133/66; RESP 18
[2016-08-17] MEDS: PANTOPRAZOLE 40 MG INJ IV SCH (06:16)
[2016-08-17 06:48] LABS: ADD SCAN DIFF NO
[2016-08-17 06:56] LABS: HEMATOCRIT 30.3 % (42.0-52.0); HEMOGLOBIN 9.8 g/dl (14.0-18.0); LYMPHOCYTES # 1.8 10^3/ul (0.8-2.9); LYMPHOCYTES % 21.3 % (15.0-51.0); MEAN CORPUSCULAR HGB CONC 32.3 g/dl (32.0-37.0); MEAN CORPUSCULAR VOLUME 89.6 fl (82.0-101.0); MEAN PLATELET VOLUME 8.8 fl (7.4-10.4); MONOCYTE # 0.4 10^3/ul (0.3-0.9); MONOCYTES % 4.1 % (0.0-11.0); NEUTROPHIL # 6.1 10^3/ul (1.6-7.5); NEUTROPHILS % 72.1 % (39.0-77.0); NUCLEATED RED BLOOD CELLS% 0.2 /100WBC (0.0-0.0); PLATELET COUNT 200 10^3/UL (140-415); RED BLOOD COUNT 3.38 10^6/ul (4.70-6.10); RED CELL DISTRIBUTION WIDTH 17.9 % (11.5-14.5); WHITE BLOOD COUNT 8.5 10^3/ul (4.8-10.8)
[2016-08-17 07:18] LABS: CALCIUM 7.1 mg/dl (8.4-10.2); CREATININE 0.42 mg/dl (0.61-1.24); POTASSIUM 4.2 mmol/L (3.5-5.1)
[2016-08-17 07:21] VITALS: BP 152/67; RESP 18
[2016-08-17] MEDS: Insulin NOVOLOG SS MILD Algorithm (SS with meals and bedtime) SC SCH ×4 (07:25→20:28)
[2016-08-17] MEDS: INSULIN ASPART [NOVOLOG] 3 ML PEN SC SCH ×3 (08:12→17:20)
[2016-08-17] MEDS: NPH, HUMAN INSULIN ISOPHANE 3ML VIAL SC SCH ×3 (08:13→22:51)
[2016-08-17] MEDS: CYANOCOBALAMIN 1000 MCG INJ IM SCH (08:20)
[2016-08-17] MEDS: DEXAMETHASONE 4 MG TAB PO SCH ×3 (08:20→22:46)
[2016-08-17] MEDS: METOPROLOL 25 MG TAB PO SCH ×2 (08:21→20:24)
[2016-08-17] MEDS: AMIODARONE 200 MG TAB PO SCH ×2 (08:21→20:23)
[2016-08-17] MEDS: FUROSEMIDE 20 MG INJ IV SCH (08:22)
[2016-08-17 10:58] VITALS: BP 150/67; RESP 16
--- NOTE | 2016-08-17 12:26 | CONS ---
Date/Time of Note Date/Time of Note DATE: 08/17/16 TIME: 12:22 Assessment/Plan Assessment/Plan Chief Complaint/Hosp Course IMPRESSION: 1. Paroxysmal atrial flutter, remains in sinus rhythm at this time 2. Abnl electrocardiogram, assess for acute coronary syndrome. -negative troponin x 3 3. Congestive heart failure by chest x-ray, diastolic, likely acute on chronic. -EF normal by echo this admit 4. Hypertension under reasonable control with episodes of borderline hypotension. 5. Altered mental state/encephalopathy. 6. Hyponatremia-improved s/p dose of tolvaptan 7. Urinary tract infection. 8. Anemia. 9. PLeural effusions bilateral 10.Prostate ca-metastatic Recc: -Tele -Continue BB/amio -Follow rhythm closely -Not on systemic anti-coag given anemia requiring transfusions. -Continue gentle lasix diuresis and follow na closely Problems: Consultation Date/Type/Reason Admit Date/Time Aug 09, 2016 at 23:11 Initial Consult Date 08/12/16 Type of Consultation: Cardiology Reason for Consultation PAFL Referring Provider: CHANELLE PAUL MD Exam/Review of Systems Vital Signs Vitals Vital Signs Date Time Temp Pulse Resp B/P Pulse Ox O2 Delivery O2 Flow Rate FiO2 08/17/16 10:58 97.8 52 16 150/67 98 08/14/16 06:10 Room Air 08/14/16 01:39 21 08/13/16 07:38 2.0 Intake and Output 08/16/16 08/16/16 08/17/16 15:00 23:00 07:00 Intake Total 360 ml 970 ml Output Total 1000 ml 843 ml Balance -640 ml 127 ml Exam Review of Systems: CONSTITUTIONAL: No fevers, chills. PULMONARY: No sob CARDIOVASCULAR: No chest pain/palpitations GASTROINTESTINAL: No nausea/vomiting. GENITOURINARY: No hematuria/dysuria. MUSCULOSKELETAL: No myagias/arthalgias. PSYCHIATRIC: The patient denies depression. NEUROLOGIC: lethargic Constitutional: alert Psych: no complaints Head: normocephalic ENMT: mucosa pink and moist Neck: jvd (9 cm water), supple Respiratory: diminished breath sounds (at bases/B) Cardiovascular: regular rate and rhythm Gastrointestinal: non-tender, soft Musculoskeletal: muscle weakness (generalized) Extremities: edema (none) Neurological: lethargic Results Result Diagram: 08/17/16 0555 08/17/16 0555 Results 24 hrs Laboratory Tests Test 08/16/16 17:12 08/16/16 20:40 08/17/16 02:24 08/17/16 05:55 Bedside Glucose 240 H 290 H 88 White Blood Count 8.5 # Red Blood Count 3.38 L Hemoglobin 9.8 L Hematocrit 30.3 L Mean Corpuscular Volume 89.6 Mean Corpuscular Hemoglobin 29.0 Mean Corpuscular Hemoglobin Concent 32.3 Red Cell Distribution Width 17.9 H Platelet Count 200 Mean Platelet Volume 8.8 Neutrophils % 72.1 Lymphocytes % 21.3 Monocytes % 4.1 Eosinophils % 0.0 Basophils % 0.0 Nucleated Red Blood Cells % 0.2 H Neutrophils # 6.1 Lymphocytes # 1.8 Monocytes # 0.4 Eosinophils # 0.0 Basophils # 0.0 Nucleated Red Blood Cells # 0.0 Sodium Level 136 Potassium Level 4.2 Chloride Level 105 Carbon Dioxide Level 25 Anion Gap 10 Blood Urea Nitrogen 13 Creatinine 0.42 L Glucose Level 70 # Calcium Level 7.1 L Test 08/17/16 08:10 Bedside Glucose 105 Medications Medications Current Medications Diltiazem HCl (Cardizem Iv) 5 mg Q6H PRN IV ELEVATED HEART RATE; Start 08/10/16 at 03:45 Pantoprazole (Protonix Iv) 40 mg DAILY@06 IV Last administered on 08/17/16t 06: 16; Admin Dose 40 MG; Start 08/10/16 at 06:00 Acetaminophen (Tylenol Supp) 500 mg Q6H PRN [place] FEVER; Start 08/10/16 at 03:00 Miscellaneous Information 1 ea NOTE XX ; Start 08/10/16 at 03:45 Glucose (Glutose) 15 gm Q15M PRN PO DECREASED GLUCOSE; Start 08/10/16 at 03:45 Glucose (Glutose) 22.5 gm Q15M PRN PO DECREASED GLUCOSE; Start 08/10/16 at 03:45 Dextrose (D50w Syringe) 25 ml Q15M PRN IV DECREASED GLUCOSE; Start 08/10/16 at 03:45 Dextrose (D50w Syringe) 50 ml Q15M PRN IV DECREASED GLUCOSE; Start 08/10/16 at 03:45 Glucagon (Glucagen) 1 mg Q15M PRN IM DECREASED GLUCOSE; Start 08/10/16 at 03:45 Glucose (Glutose) 15 gm Q15M PRN BUCCAL DECREASED GLUCOSE; Start 08/10/16 at 03: 45 [facility] This patient melendez... PRN PRN XX WOUND CARE; Start 08/10/16 at 12:00 Metoprolol Tartrate (Lopressor) 25 mg BID PO Last administered on 08/17/16 08: 21; Admin Dose 25 MG; Start 08/10/16 at 21:00 Amiodarone HCl (Cordarone) 200 mg BID PO Last administered on 08/17/16 08:21; Admin Dose 200 MG; Start 08/10/16 at 21:00 Metoprolol Tartrate (Lopressor) 5 mg Q4H PRN IV hr>110 hold sbp<100; Start 08/10 at 14:30 Lorazepam (Ativan) 0.5 mg Q6H PRN IV ANXIETY Last administered on 08/11/16 01: 30; Admin Dose 0.5 MG; Start 08/10/16 at 23:30 Furosemide (Lasix) 20 mg DAILY IV Last administered on 08/17/16 08:22; Admin Dose 20 MG; Start 08/14/16 at 09:00 Cyanocobalamin 1000 mcg 1,000 mcg DAILY IM Last administered on 08/17/16 08:20 ; Admin Dose 1,000 MCG; Start 08/15/16 at 09:00; Stop 08/21/16 at 08:59 Ceftriaxone Sodium (Rocephin) 50 ml @ 100 mls/hr Q24H IVPB Last administered on 08/16/16 20:49; Admin Dose 100 MLS/HR; Start 08/14/16 at 20:00 Insulin Glargine (Lantus) 16 unit DAILY@20 SC Last administered on 08/16/16 20: 54; Admin Dose 16 UNIT; Start 08/16/16 at 20:00 Dexamethasone (Decadron) 4 mg Q8 PO Last administered on 08/17/16 08:20; Admin Dose 4 MG; Start 08/17/16 at 07:30 Insulin Human NPH (Humulin N) 16 unit Q8 SC Last administered on 08/17/16 08:13 ; Admin Dose 16 UNIT; Start 08/17/16 at 07:30 ROSI ROBERTSON Aug 17, 2016 12:26
--- NOTE | 2016-08-17 16:17 | PN ---
Date/Time of Note Date/Time of Note DATE: 08/17/16 TIME: 16:14 Assessment/Plan VTE Prophylaxis VTE Prophylaxis Intervention: SCD's Lines/Catheters IV [facility] Saline Lock Urinary Cath still in place: No Assessment/Plan Chief Complaint/Hosp Course Patient is hemodynamically stable pain is well controlled, will start PT, discussed with patient's son-in-law at the bedside, case management for possible [facility] facility placement. ASSESSMENT AND PLAN: - Metastatic prostate cancer. Dr. Sinclair is following in hematology consultation. Dr. Huang is following in urology consultation. On Lupron status post Zometa. Discussed with Dr. Sinclair, patient had no cord compression per evaluation by Dr. Coto radiation oncology. - Acute metabolic encephalopathy, resolving. - Bilateral pleural effusions - Paroxysmal atrial flutter. Dr. Ragsdale is following and cardiology consultation. - Diastolic dysfunction congestive heart failure. Continue Lasix monitor electrolytes. - Hyponatremia secondary to SIADH, resolved. Dr. Howard is following patient in nephrology consultation. Continue intravenous fluids. - Diabetes mellitus. Continue Lantus and NovoLog. - Anemia, status post blood transfusion. Continue to monitor hemoglobin and hematocrit. - Hypertension. - Urinary retention. Continue to follow up urology recommendation. Further recommendations based on clinical course. Plan of care discussed with Dr. Gregory. Problems: Exam/Review of Systems Vital Signs Vitals Vital Signs Date Time Temp Pulse Resp B/P Pulse Ox O2 Delivery O2 Flow Rate FiO2 08/17/16 10:58 97.8 52 16 150/67 98 08/14/16 06:10 Room Air 08/14/16 01:39 21 08/13/16 07:38 2.0 Intake and Output 08/16/16 08/16/16 08/17/16 15:00 23:00 07:00 Intake Total 360 ml 970 ml Output Total 1000 ml 843 ml Balance -640 ml 127 ml Exam Constitutional: alert, oriented Head: normocephalic Neck: supple Respiratory: diminished breath sounds Cardiovascular: nl pulses Gastrointestinal: non-tender, soft Genitourinary - Male: other (Montesinos catheter) Extremities: normal pulses Results Result Diagram: 08/17/16 0555 08/17/16 0555 Results 24 hrs Laboratory Tests Test 08/16/16 17:12 08/16/16 20:40 08/17/16 02:24 08/17/16 05:55 Bedside Glucose 240 H 290 H 88 White Blood Count 8.5 # Red Blood Count 3.38 L Hemoglobin 9.8 L Hematocrit 30.3 L Mean Corpuscular Volume 89.6 Mean Corpuscular Hemoglobin 29.0 Mean Corpuscular Hemoglobin Concent 32.3 Red Cell Distribution Width 17.9 H Platelet Count 200 Mean Platelet Volume 8.8 Neutrophils % 72.1 Lymphocytes % 21.3 Monocytes % 4.1 Eosinophils % 0.0 Basophils % 0.0 Nucleated Red Blood Cells % 0.2 H Neutrophils # 6.1 Lymphocytes # 1.8 Monocytes # 0.4 Eosinophils # 0.0 Basophils # 0.0 Nucleated Red Blood Cells # 0.0 Sodium Level 136 Potassium Level 4.2 Chloride Level 105 Carbon Dioxide Level 25 Anion Gap 10 Blood Urea Nitrogen 13 Creatinine 0.42 L Glucose Level 70 # Calcium Level 7.1 L Test 08/17/16 08:10 08/17/16 12:07 Bedside Glucose 105 138 Medications Medications Current Medications Diltiazem HCl (Cardizem Iv) 5 mg Q6H PRN IV ELEVATED HEART RATE; Start 08/10/16 at 03:45 Pantoprazole (Protonix Iv) 40 mg DAILY@06 IV Last administered on 08/17/16t 06: 16; Admin Dose 40 MG; Start 08/10/16 at 06:00 Acetaminophen (Tylenol Supp) 500 mg Q6H PRN [place] FEVER; Start 08/10/16 at 03:00 Miscellaneous Information 1 ea NOTE XX ; Start 08/10/16 at 03:45 Glucose (Glutose) 15 gm Q15M PRN PO DECREASED GLUCOSE; Start 08/10/16 at 03:45 Glucose (Glutose) 22.5 gm Q15M PRN PO DECREASED GLUCOSE; Start 08/10/16 at 03:45 Dextrose (D50w Syringe) 25 ml Q15M PRN IV DECREASED GLUCOSE; Start 08/10/16 at 03:45 Dextrose (D50w Syringe) 50 ml Q15M PRN IV DECREASED GLUCOSE; Start 08/10/16 at 03:45 Glucagon (Glucagen) 1 mg Q15M PRN IM DECREASED GLUCOSE; Start 08/10/16 at 03:45 Glucose (Glutose) 15 gm Q15M PRN BUCCAL DECREASED GLUCOSE; Start 08/10/16 at 03: 45 Miscellaneous Information (Pending [facility] Order For Wound Care) This patient melendez... PRN PRN XX WOUND CARE; Start 08/10/16 at 12:00 Metoprolol Tartrate (Lopressor) 25 mg BID PO Last administered on 08/17/16 08: 21; Admin Dose 25 MG; Start 08/10/16 at 21:00 Amiodarone HCl (Cordarone) 200 mg BID PO Last administered on 08/17/16 08:21; Admin Dose 200 MG; Start 08/10/16 at 21:00 Metoprolol Tartrate (Lopressor) 5 mg Q4H PRN IV hr>110 hold sbp<100; Start 08/10 at 14:30 Lorazepam (Ativan) 0.5 mg Q6H PRN IV ANXIETY Last administered on 08/11/16 01: 30; Admin Dose 0.5 MG; Start 08/10/16 at 23:30 Furosemide (Lasix) 20 mg DAILY IV Last administered on 08/17/16 08:22; Admin Dose 20 MG; Start 08/14/16 at 09:00 Cyanocobalamin 1000 mcg 1,000 mcg DAILY IM Last administered on 08/17/16 08:20 ; Admin Dose 1,000 MCG; Start 08/15/16 at 09:00; Stop 08/21/16 at 08:59 Ceftriaxone Sodium (Rocephin) 50 ml @ 100 mls/hr Q24H IVPB Last administered on 08/16/16 20:49; Admin Dose 100 MLS/HR; Start 08/14/16 at 20:00 Insulin Glargine (Lantus) 16 unit DAILY@20 SC Last administered on 08/16/16 20: 54; Admin Dose 16 UNIT; Start 08/16/16 at 20:00 Dexamethasone (Decadron) 4 mg Q8 PO Last administered on 08/17/16 14:08; Admin Dose 4 MG; Start 08/17/16 at 07:30 Insulin Human NPH (Humulin N) 16 unit Q8 SC Last administered on 08/17/16 14:13 ; Admin Dose 16 UNIT; Start 08/17/16 at 07:30 ROBERT CORRALES Aug 17, 2016 16:17
--- NOTE | 2016-08-17 17:25 | CONS ---
Date/Time of Note Date/Time of Note DATE: 08/17/16 TIME: 17:22 Assessment/Plan Assessment/Plan Chief Complaint/Hosp Course The patient is an 86 year old male with: # Metastatic prostate cancer, castrate resistant- pt diagnosed in [address] Huang with Lupron 22.5 mg q 3 months. Pt was given Lupron in May 2016 but PSA continues to rise. It is now >800 up from 205 in Mar 2016. Note testosterone level is low at 21 - pt was given Lupron . 7.5 mg yesterday - s/p zometa 4 mg over 15 minutes on 08/12/16 - PSA elevated to 892, pending testosterone level. PSA was up to 205 in March 2016. will plant to start Abiraterone 1000mg q day as an out patient -CT C/A/P demonstrated diffuse metastatic disease as well as left periaortic and left common iliac retroperitoneal lymph nodes are identified, likely metastatic lymphadenopathy. -Spoke with radiation oncology who performed a thorough neuro exam as well as review. There is no evidence of cord compression on scan nor on physical exam. We will not need to perform emergent radiation at this time. # Altered mental status which has resolved. - MRI brain unremarkable. CT C spine showed no evidence of cord compression but questionable evidence of leptomeningeal disease. -will not start intrathecal therapy at this time. -will start Abiraterone as stated above # Generalized weakness- MRI of L spine demonstrates : L1-L2, mild retrolisthesis, 4 mm. Also seen is moderate to severe appearing central canal stenosis,as well as apparent deformation of the cord, and increased cord T2 signal, suspicious for a small area of edema. -given concern for cord compression radiation oncology was called. they are going to review the scan to see if this is in fact cord compression that needs emergent XRT. The history from the family is confusing as some say his symptoms are acute while others say he has been in this same physical state since last January - Outpatient bone scan 05/16/16 revealed diffuse osseous metastatic disease # Urinary retention, appreciate Dr. Huang recommendations. -cont ramriez for now # Anemia, likely related to chronic inflammation plus possible bone marrow involvement with nucleated RBCs, plus gross hematuria - Hgb 6.9 on 08/12/16, s/p 2 units pRBCs, now increased to 9.2. - iron panel showed Fe 33, TIBC low at 202, %sat 16, ferritin 630 consistent with anemia of chronic inflammation, LDH normal at 612, retic inappropriately low at 98K; Folate normal at 9.7, Vitamin B12 low at < 159. TSH normal at 1.68. Pending homocysteine and methylmalonic acid. Pending haptoglobin. - continue Vitamin B12 injection 1000 mcg daily for 7 days total # Left upper extremity swelling, - Lower extremity dopplers showed 1. No right lower extremity DVT. 2. 3.7 cm Parker's cyst in the popliteal fossa. - Bilateral upper extremity dopplers negative for DVT ok to dc to [facility] from hematology standpoint Problems: Consultation Date/Type/Reason Admit Date/Time Aug 09, 2016 at 23:11 Initial Consult Date 08/12/16 Type of Consultation: Hematology Reason for Consultation metastatic prostate cancer Referring Provider: CHANELLE PAUL MD 24 HR Interval Summary Free Text/Dictation no acute overnight events. pt feels well. moving extremities Exam/Review of Systems Vital Signs Vitals Vital Signs Date Time Temp Pulse Resp B/P Pulse Ox O2 Delivery O2 Flow Rate FiO2 08/17/16 10:58 97.8 52 16 150/67 98 08/14/16 06:10 Room Air 08/14/16 01:39 21 08/13/16 07:38 2.0 Intake and Output 08/16/16 08/16/16 08/17/16 15:00 23:00 07:00 Intake Total 360 ml 970 ml Output Total 1000 ml 843 ml Balance -640 ml 127 ml Exam Constitutional: alert, frail, oriented Psych: no complaints Head: normocephalic Eyes: nl conjunctiva ENMT: nl external ears & nose Neck: non-tender, supple Respiratory: clear to auscultation Cardiovascular: regular rate and rhythm Musculoskeletal: nl extremities to inspection Results Result Diagram: 08/17/16 0555 08/17/16 0555 Results 24 hrs Laboratory Tests Test 08/16/16 20:40 08/17/16 02:24 08/17/16 05:55 08/17/16 08:10 Bedside Glucose 290 H 88 105 White Blood Count 8.5 # Red Blood Count 3.38 L Hemoglobin 9.8 L Hematocrit 30.3 L Mean Corpuscular Volume 89.6 Mean Corpuscular Hemoglobin 29.0 Mean Corpuscular Hemoglobin Concent 32.3 Red Cell Distribution Width 17.9 H Platelet Count 200 Mean Platelet Volume 8.8 Neutrophils % 72.1 Lymphocytes % 21.3 Monocytes % 4.1 Eosinophils % 0.0 Basophils % 0.0 Nucleated Red Blood Cells % 0.2 H Neutrophils # 6.1 Lymphocytes # 1.8 Monocytes # 0.4 Eosinophils # 0.0 Basophils # 0.0 Nucleated Red Blood Cells # 0.0 Sodium Level 136 Potassium Level 4.2 Chloride Level 105 Carbon Dioxide Level 25 Anion Gap 10 Blood Urea Nitrogen 13 Creatinine 0.42 L Glucose Level 70 # Calcium Level 7.1 L Test 08/17/16 12:07 Bedside Glucose 138 Medications Medications Current Medications Diltiazem HCl (Cardizem Iv) 5 mg Q6H PRN IV ELEVATED HEART RATE; Start 08/10/16 at 03:45 Pantoprazole (Protonix Iv) 40 mg DAILY@06 IV Last administered on 08/17/16 06: 16; Admin Dose 40 MG; Start 08/10/16 at 06:00 Acetaminophen (Tylenol Supp) 500 mg Q6H PRN [place] FEVER; Start 08/10/16 at 03:00 Miscellaneous Information 1 ea NOTE XX ; Start 08/10/16 at 03:45 Glucose (Glutose) 15 gm Q15M PRN PO DECREASED GLUCOSE; Start 08/10/16 at 03:45 Glucose (Glutose) 22.5 gm Q15M PRN PO DECREASED GLUCOSE; Start 08/10/16 at 03:45 Dextrose (D50w Syringe) 25 ml Q15M PRN IV DECREASED GLUCOSE; Start 08/10/16 at 03:45 Dextrose (D50w Syringe) 50 ml Q15M PRN IV DECREASED GLUCOSE; Start 08/10/16 at 03:45 Glucagon (Glucagen) 1 mg Q15M PRN IM DECREASED GLUCOSE; Start 08/10/16 at 03:45 Glucose (Glutose) 15 gm Q15M PRN BUCCAL DECREASED GLUCOSE; Start 08/10/16 at 03: 45 Miscellaneous Information [facility] This patient melendez... PRN PRN XX WOUND CARE; Start 08/10/16 at 12:00 Metoprolol Tartrate (Lopressor) 25 mg BID PO Last administered on 08/17/16 08: 21; Admin Dose 25 MG; Start 08/10/16 at 21:00 Amiodarone HCl (Cordarone) 200 mg BID PO Last administered on 08/17/16 08:21; Admin Dose 200 MG; Start 08/10/16 at 21:00 Metoprolol Tartrate (Lopressor) 5 mg Q4H PRN IV hr>110 hold sbp<100; Start 08/10 at 14:30 Lorazepam (Ativan) 0.5 mg Q6H PRN IV ANXIETY Last administered on 08/11/16 01: 30; Admin Dose 0.5 MG; Start 08/10/16 at 23:30 Furosemide (Lasix) 20 mg DAILY IV Last administered on 08/17/16 08:22; Admin Dose 20 MG; Start 08/14/16 at 09:00 Cyanocobalamin 1000 mcg 1,000 mcg DAILY IM Last administered on 08/17/16 08:20 ; Admin Dose 1,000 MCG; Start 08/15/16 at 09:00; Stop 08/21/16 at 08:59 Ceftriaxone Sodium (Rocephin) 50 ml @ 100 mls/hr Q24H IVPB Last administered on 08/16/16 20:49; Admin Dose 100 MLS/HR; Start 08/14/16 at 20:00 Insulin Glargine (Lantus) 16 unit DAILY@20 SC Last administered on 08/16/16 20: 54; Admin Dose 16 UNIT; Start 08/16/16 at 20:00 Dexamethasone (Decadron) 4 mg Q8 PO Last administered on 08/17/16 14:08; Admin Dose 4 MG; Start 08/17/16 at 07:30 Insulin Human NPH (Humulin N) 16 unit Q8 SC Last administered on 08/17/16 14:13 ; Admin Dose 16 UNIT; Start 08/17/16 at 07:30 ZAHEER PRYOR M.D. Aug 17, 2016 17:25
--- NOTE | 2016-08-17 18:44 | CONS ---
Date/Time of Note Date/Time of Note DATE: 08/17/16 TIME: 18:42 Assessment/Plan Assessment/Plan Additional Assessment/Plan 1. Severe hyponatremia with a sodium 114 on admission. 2. Acute metabolic encephalopathy and fall at home secondary to severe hyponatremia. 3. Hypovolemic hyponatremia versus syndrome of inappropriate diuretic hormone. 4. Hypertension. 5. Hyperlipidemia. 6. History of prostate carcinoma. 7. History of diabetes mellitus. 8. History of bilateral knee arthritis. 9. Anemia, Iron deficiency,iron sat 16%, normal ferritin Plan: S/p 3 % saline,and S/p one dose of tolvaptan 15 gram PO x 1 dose before- now Na normal today Cr normal, K normal will continue to follow up Consultation Date/Type/Reason Admit Date/Time Aug 09, 2016 at 23:11 Type of Consultation: NEPHROLOGY Referring Provider: CHANELLE PAUL MD 24 HR Interval Summary Free Text/Dictation Cr normal, stable electrolytes today Exam/Review of Systems Vital Signs Vitals Vital Signs Date Time Temp Pulse Resp B/P Pulse Ox O2 Delivery O2 Flow Rate FiO2 08/17/16 10:58 97.8 52 16 150/67 98 08/14/16 06:10 Room Air 08/14/16 01:39 21 08/13/16 07:38 2.0 Intake and Output 08/16/16 08/16/16 08/17/16 15:00 23:00 07:00 Intake Total 360 ml 970 ml Output Total 1000 ml 843 ml Balance -640 ml 127 ml Exam Constitutional: alert, frail, oriented Psych: no complaints Head: normocephalic Eyes: nl conjunctiva ENMT: nl external ears & nose Neck: non-tender, supple Respiratory: clear to auscultation Cardiovascular: regular rate and rhythm Musculoskeletal: nl extremities to inspection Results Result Diagram: 08/17/16 0555 08/17/16 0555 Results 24 hrs Laboratory Tests Test 08/16/16 20:40 08/17/16 02:24 08/17/16 05:55 08/17/16 08:10 Bedside Glucose 290 H 88 105 White Blood Count 8.5 # Red Blood Count 3.38 L Hemoglobin 9.8 L Hematocrit 30.3 L Mean Corpuscular Volume 89.6 Mean Corpuscular Hemoglobin 29.0 Mean Corpuscular Hemoglobin Concent 32.3 Red Cell Distribution Width 17.9 H Platelet Count 200 Mean Platelet Volume 8.8 Neutrophils % 72.1 Lymphocytes % 21.3 Monocytes % 4.1 Eosinophils % 0.0 Basophils % 0.0 Nucleated Red Blood Cells % 0.2 H Neutrophils # 6.1 Lymphocytes # 1.8 Monocytes # 0.4 Eosinophils # 0.0 Basophils # 0.0 Nucleated Red Blood Cells # 0.0 Sodium Level 136 Potassium Level 4.2 Chloride Level 105 Carbon Dioxide Level 25 Anion Gap 10 Blood Urea Nitrogen 13 Creatinine 0.42 L Glucose Level 70 # Calcium Level 7.1 L Test 08/17/16 12:07 08/17/16 17:16 Bedside Glucose 138 128 Medications Medications Current Medications Diltiazem HCl (Cardizem Iv) 5 mg Q6H PRN IV ELEVATED HEART RATE; Start 08/10/16 at 03:45 Pantoprazole (Protonix Iv) 40 mg DAILY@06 IV Last administered on 08/17/16 06: 16; Admin Dose 40 MG; Start 08/10/16 at 06:00 Acetaminophen (Tylenol Supp) 500 mg Q6H PRN [place] FEVER; Start 08/10/16 at 03:00 Miscellaneous Information 1 ea NOTE XX ; Start 08/10/16 at 03:45 Glucose (Glutose) 15 gm Q15M PRN PO DECREASED GLUCOSE; Start 08/10/16 at 03:45 Glucose (Glutose) 22.5 gm Q15M PRN PO DECREASED GLUCOSE; Start 08/10/16 at 03:45 Dextrose (D50w Syringe) 25 ml Q15M PRN IV DECREASED GLUCOSE; Start 08/10/16 at 03:45 Dextrose (D50w Syringe) 50 ml Q15M PRN IV DECREASED GLUCOSE; Start 08/10/16 at 03:45 Glucagon (Glucagen) 1 mg Q15M PRN IM DECREASED GLUCOSE; Start 08/10/16 at 03:45 Glucose (Glutose) 15 gm Q15M PRN BUCCAL DECREASED GLUCOSE; Start 08/10/16 at 03: 45 [facility] This patient melendez... PRN PRN XX WOUND CARE; Start 08/10/16 at 12:00 Metoprolol Tartrate (Lopressor) 25 mg BID PO Last administered on 08/17/16 08: 21; Admin Dose 25 MG; Start 08/10/16 at 21:00 Amiodarone HCl (Cordarone) 200 mg BID PO Last administered on 08/17/16 08:21; Admin Dose 200 MG; Start 08/10/16 at 21:00 Metoprolol Tartrate (Lopressor) 5 mg Q4H PRN IV hr>110 hold sbp<100; Start 08/10 at 14:30 Lorazepam (Ativan) 0.5 mg Q6H PRN IV ANXIETY Last administered on 08/11/16 01: 30; Admin Dose 0.5 MG; Start 08/10/16 at 23:30 Furosemide (Lasix) 20 mg DAILY IV Last administered on 08/17/16 08:22; Admin Dose 20 MG; Start 08/14/16 at 09:00 Cyanocobalamin 1000 mcg 1,000 mcg DAILY IM Last administered on 08/17/16 08:20 ; Admin Dose 1,000 MCG; Start 08/15/16 at 09:00; Stop 08/21/16 at 08:59 Ceftriaxone Sodium (Rocephin) 50 ml @ 100 mls/hr Q24H IVPB Last administered on 08/16/16 20:49; Admin Dose 100 MLS/HR; Start 08/14/16 at 20:00 Insulin Glargine (Lantus) 16 unit DAILY@20 SC Last administered on 08/16/16 20: 54; Admin Dose 16 UNIT; Start 08/16/16 at 20:00 Dexamethasone (Decadron) 4 mg Q8 PO Last administered on 08/17/16 14:08; Admin Dose 4 MG; Start 08/17/16 at 07:30 Insulin Human NPH (Humulin N) 16 unit Q8 SC Last administered on 08/17/16 14:13 ; Admin Dose 16 UNIT; Start 08/17/16 at 07:30 KARLENE MUÑOZ MD Aug 17, 2016 18:44
[2016-08-17 20:12] VITALS: BP 160/68; RESP 20
--- NOTE | 2016-08-17 20:18 | PN ---
DATE: 08/17/2016 SUBJECTIVE: The patient denies having any pain. He is weak. He is not able to walk, but he is abl e to move all of his extremities, and there was no evidence of spinal cord compression at the presen t. The patient also is voiding, and he denies any dysuria, and the urinary is clear. OBJECTIVE: VITAL SIGNS: His temperature is 97.8, pulse 52, respirations 16, blood pressure 150/67. ABDOMEN: Soft. There is no tenderness. GENITOURINARY: There is no urinary retention. He has been voiding, and the urine is clear. There is no gross hematuria. LABORATORY DATA: CBC shows a white count of 8.5, hemoglobin 9.8, hematocrit 30.3. BUN is 13, creat inine 0.42. Electrolytes are normal. IMPRESSION: Metastatic prostate cancer. The patient has been on Lupron Depot. We gave him an inje ction of Eligard about 3 days ago on 08/14. The patient has also received Zometa, and his PSA is q uite high. His testosterone is almost castrate level. The plan is to continue to monitor his urine and pain medications, continue the treatment as per Dr. Sinclair for the metastatic cancer and also co ntinue his Lupron Depot as an outpatient later on, and the patient also may benefit from some physic al therapy to see if he could ambulate better and in a safe way. Dictated By: ANGELA GRANT/CHERRY Conf#: [id number] DID#: [id number]
[2016-08-17] MEDS: CEFTRIAXONE 1 GM/50 ML (PMX) 50 ML IVPB SCH (20:23)
[2016-08-17] MEDS: INSULIN GLARGINE [LANtus] 3 ML PEN SC SCH (20:33)
[2016-08-17 23:23] LABS: HOMOCYSTEINE - CARDIOVASCULAR 18.3 umol/L (<11.4)
[2016-08-17 23:49] VITALS: BP 154/71; RESP 20
[2016-08-18 03:53] VITALS: BP 136/79; RESP 20
[2016-08-18] MEDS: PANTOPRAZOLE 40 MG INJ IV SCH (06:28)
[2016-08-18] MEDS: DEXAMETHASONE 4 MG TAB PO SCH ×3 (06:39→21:13)
[2016-08-18] MEDS: NPH, HUMAN INSULIN ISOPHANE 3ML VIAL SC SCH ×3 (06:43→21:27)
[2016-08-18 07:19] VITALS: BP 153/67; RESP 20
[2016-08-18] MEDS: Insulin NOVOLOG SS MILD Algorithm (SS with meals and bedtime) SC SCH ×4 (07:25→21:23)
[2016-08-18 08:00] LABS: CALCIUM 7.1 mg/dl (8.4-10.2); CREATININE 0.45 mg/dl (0.61-1.24); POTASSIUM 4.1 mmol/L (3.5-5.1)
[2016-08-18] MEDS: CYANOCOBALAMIN 1000 MCG INJ IM SCH (08:17)
[2016-08-18] MEDS: METOPROLOL 25 MG TAB PO SCH ×2 (08:17→21:15)
[2016-08-18] MEDS: FUROSEMIDE 20 MG INJ IV SCH (08:18)
[2016-08-18] MEDS: AMIODARONE 200 MG TAB PO SCH ×2 (08:18→21:14)
[2016-08-18] MEDS: INSULIN ASPART [NOVOLOG] 3 ML PEN SC SCH ×3 (08:50→17:51)
--- NOTE | 2016-08-18 10:59 | CONS ---
Date/Time of Note Date/Time of Note DATE: 08/18/16 TIME: 10:53 Assessment/Plan Assessment/Plan Chief Complaint/Hosp Course IMPRESSION: 1. Paroxysmal atrial flutter, remains in sinus rhythm at this time 2. Abnl electrocardiogram, assess for acute coronary syndrome. -negative troponin x 3 3. Congestive heart failure by chest x-ray, diastolic, likely acute on chronic. -EF normal by echo this admit 4. Hypertension under reasonable control with episodes of borderline hypotension. 5. Altered mental state/encephalopathy. 6. Hyponatremia-improved s/p dose of tolvaptan 7. Urinary tract infection. 8. Anemia. 9. PLeural effusions bilateral 10.Prostate ca-metastatic Recc: -Tele -Continue BB/amio -Follow rhythm closely -Not on systemic anti-coag given anemia requiring transfusions. -Continue gentle lasix diuresis and follow na closely -Continue lupron/decadron Problems: Consultation Date/Type/Reason Admit Date/Time Aug 09, 2016 at 23:11 Initial Consult Date 08/12/16 Type of Consultation: cardiology Reason for Consultation PAFL Referring Provider: CHANELLE PAUL MD Exam/Review of Systems Vital Signs Vitals Vital Signs Date Time Temp Pulse Resp B/P Pulse Ox O2 Delivery O2 Flow Rate FiO2 08/18/16 07:19 97.9 88 20 153/67 97 Intake and Output 08/17/16 08/17/16 08/18/16 15:00 23:00 07:00 Intake Total 360 ml 300 ml 290 ml Output Total 628 ml 173 ml Balance -268 ml 300 ml 117 ml Exam Review of Systems: CONSTITUTIONAL: No fevers, chills. PULMONARY: No sob CARDIOVASCULAR: No chest pain/palpitations GASTROINTESTINAL: No nausea/vomiting. GENITOURINARY: No hematuria/dysuria. MUSCULOSKELETAL: No myagias/arthalgias. PSYCHIATRIC: The patient denies depression. NEUROLOGIC: Lethargic Constitutional: alert, other Psych: no complaints Head: normocephalic ENMT: mucosa pink and moist Neck: jvd (8-9 cm water), supple Respiratory: diminished breath sounds (at bases/B) Cardiovascular: regular rate and rhythm Gastrointestinal: non-tender, soft Musculoskeletal: muscle weakness (weakness) Extremities: edema (none) Neurological: other (No focal deficits) Results Result Diagram: 08/17/16 0555 08/18/16 0642 Results 24 hrs Laboratory Tests Test 08/17/16 12:07 08/17/16 17:16 08/17/16 20:27 08/17/16 22:47 Bedside Glucose 138 128 176 128 Test 08/18/16 06:34 08/18/16 06:42 08/18/16 07:03 08/18/16 07:19 Bedside Glucose 64 L 75 92 Sodium Level 134 L Potassium Level 4.1 Chloride Level 105 Carbon Dioxide Level 24 Anion Gap 9 Blood Urea Nitrogen 15 Creatinine 0.45 L Glucose Level 64 L Calcium Level 7.1 L Test 08/18/16 08:15 Bedside Glucose 83 Medications Medications Current Medications Diltiazem HCl (Cardizem Iv) 5 mg Q6H PRN IV ELEVATED HEART RATE; Start 08/10/16 at 03:45 Pantoprazole (Protonix Iv) 40 mg DAILY@06 IV Last administered on 08/18/16 06: 28; Admin Dose 40 MG; Start 08/10/16 at 06:00 Acetaminophen (Tylenol Supp) 500 mg Q6H PRN [place] FEVER; Start 08/10/16 at 03:00 Miscellaneous Information 1 ea NOTE XX ; Start 08/10/16 at 03:45 Glucose (Glutose) 15 gm Q15M PRN PO DECREASED GLUCOSE; Start 08/10/16 at 03:45 Glucose (Glutose) 22.5 gm Q15M PRN PO DECREASED GLUCOSE; Start 08/10/16 at 03:45 Dextrose (D50w Syringe) 25 ml Q15M PRN IV DECREASED GLUCOSE; Start 08/10/16 at 03:45 Dextrose (D50w Syringe) 50 ml Q15M PRN IV DECREASED GLUCOSE; Start 08/10/16 at 03:45 Glucagon (Glucagen) 1 mg Q15M PRN IM DECREASED GLUCOSE; Start 08/10/16 at 03:45 Glucose (Glutose) 15 gm Q15M PRN BUCCAL DECREASED GLUCOSE; Start 08/10/16 at 03: 45 Misc[facility] This patient melendez... PRN PRN XX WOUND CARE; Start 08/10/16 at 12:00 Metoprolol Tartrate (Lopressor) 25 mg BID PO Last administered on 08/18/16 08: 17; Admin Dose 25 MG; Start 08/10/16 at 21:00 Amiodarone HCl (Cordarone) 200 mg BID PO Last administered on 08/18/16 08:18; Admin Dose 200 MG; Start 08/10/16 at 21:00 Metoprolol Tartrate (Lopressor) 5 mg Q4H PRN IV hr>110 hold sbp<100; Start 08/10 at 14:30 Lorazepam (Ativan) 0.5 mg Q6H PRN IV ANXIETY Last administered on 08/11/16 01: 30; Admin Dose 0.5 MG; Start 08/10/16 at 23:30 Furosemide (Lasix) 20 mg DAILY IV Last administered on 08/18/16 08:18; Admin Dose 20 MG; Start 08/14/16 at 09:00 Cyanocobalamin 1000 mcg 1,000 mcg DAILY IM Last administered on 08/18/16 08:17 ; Admin Dose 1,000 MCG; Start 08/15/16 at 09:00; Stop 08/21/16 at 08:59 Ceftriaxone Sodium (Rocephin) 50 ml @ 100 mls/hr Q24H IVPB Last administered on 08/17/16 20:23; Admin Dose 100 MLS/HR; Start 08/14/16 at 20:00 Insulin Glargine (Lantus) 16 unit DAILY@20 SC Last administered on 08/17/16 20: 33; Admin Dose 16 UNIT; Start 08/16/16 at 20:00 Dexamethasone (Decadron) 4 mg Q8 PO Last administered on 08/18/16 06:39; Admin Dose 4 MG; Start 08/17/16 at 07:30 Insulin Human NPH (Humulin N) 8 unit Q8 SC ; Start 08/18/16 at 14:00 Insulin Human NPH (Humulin N) 8 unit Q8 SC ; Start 08/18/16 at 14:00 ROSI ROBERTSON Aug 18, 2016 10:59
--- NOTE | 2016-08-18 11:44 | PN ---
Date/Time of Note Date/Time of Note DATE: 08/18/16 TIME: 11:43 Assessment/Plan VTE Prophylaxis VTE Prophylaxis Intervention: other Lines/Catheters IV [facility] Type [facility] Saline Lock Urinary Cath still in place: No Assessment/Plan Chief Complaint/Hosp Course - Metastatic prostate cancer. Dr. Sinclair is following in hematology consultation. Dr. Huang is following in urology consultation. On Lupron status post Zometa. Discussed with Dr. Sinclair, patient had no cord compression per evaluation by Dr. Coto radiation oncology. - Acute metabolic encephalopathy, resolving. - Bilateral pleural effusions - Paroxysmal atrial flutter. Dr. Ragsdale is following and cardiology consultation. - Diastolic dysfunction congestive heart failure. Continue Lasix monitor electrolytes. - Hyponatremia secondary to SIADH, resolved. Dr. Howard is following patient in nephrology consultation. Continue intravenous fluids. - Diabetes mellitus. Continue Lantus and NovoLog. - Anemia, status post blood transfusion. Continue to monitor hemoglobin and hematocrit. - Hypertension. - Urinary retention. Continue to follow up urology recommendation. Problems: Subjective 24 Hr Interval Summary Free Text/Dictation Patient doing well, has no complaints Exam/Review of Systems Vital Signs Vitals Vital Signs Date Time Temp Pulse Resp B/P Pulse Ox O2 Delivery O2 Flow Rate FiO2 08/18/16 07:19 97.9 88 20 153/67 97 Intake and Output 08/17/16 08/17/16 08/18/16 15:00 23:00 07:00 Intake Total 360 ml 300 ml 290 ml Output Total 628 ml 173 ml Balance -268 ml 300 ml 117 ml Exam Constitutional: well developed Head: atraumatic, normocephalic Neck: supple Respiratory: clear to auscultation Cardiovascular: regular rate and rhythm Gastrointestinal: non-tender, soft Extremities: normal pulses Results Result Diagram: 08/17/16 0555 08/18/16 0642 Results 24 hrs Laboratory Tests Test 08/17/16 12:07 08/17/16 17:16 08/17/16 20:27 08/17/16 22:47 Bedside Glucose 138 128 176 128 Test 08/18/16 06:34 08/18/16 06:42 08/18/16 07:03 08/18/16 07:19 Bedside Glucose 64 L 75 92 Sodium Level 134 L Potassium Level 4.1 Chloride Level 105 Carbon Dioxide Level 24 Anion Gap 9 Blood Urea Nitrogen 15 Creatinine 0.45 L Glucose Level 64 L Calcium Level 7.1 L Test 08/18/16 08:15 Bedside Glucose 83 Medications Medications Current Medications Diltiazem HCl (Cardizem Iv) 5 mg Q6H PRN IV ELEVATED HEART RATE; Start 08/10/16 at 03:45 Pantoprazole (Protonix Iv) 40 mg DAILY@06 IV Last administered on 08/18/16 06: 28; Admin Dose 40 MG; Start 08/10/16 at 06:00 Acetaminophen (Tylenol Supp) 500 mg Q6H PRN [place] FEVER; Start 08/10/16 at 03:00 Miscellaneous Information 1 ea NOTE XX ; Start 08/10/16 at 03:45 Glucose (Glutose) 15 gm Q15M PRN PO DECREASED GLUCOSE; Start 08/10/16 at 03:45 Glucose (Glutose) 22.5 gm Q15M PRN PO DECREASED GLUCOSE; Start 08/10/16 at 03:45 Dextrose (D50w Syringe) 25 ml Q15M PRN IV DECREASED GLUCOSE; Start 08/10/16 at 03:45 Dextrose (D50w Syringe) 50 ml Q15M PRN IV DECREASED GLUCOSE; Start 08/10/16 at 03:45 Glucagon (Glucagen) 1 mg Q15M PRN IM DECREASED GLUCOSE; Start 08/10/16 at 03:45 Glucose (Glutose) 15 gm Q15M PRN BUCCAL DECREASED GLUCOSE; Start 08/10/16 at 03: 45 Miscellaneous Information (Pending [facility] Order For Wound Care) This patient melendez... PRN PRN XX WOUND CARE; Start 08/10/16 at 12:00 Metoprolol Tartrate (Lopressor) 25 mg BID PO Last administered on 08/18/16 08: 17; Admin Dose 25 MG; Start 08/10/16 at 21:00 Amiodarone HCl (Cordarone) 200 mg BID PO Last administered on 08/18/16 08:18; Admin Dose 200 MG; Start 08/10/16 at 21:00 Metoprolol Tartrate (Lopressor) 5 mg Q4H PRN IV hr>110 hold sbp<100; Start 08/10 at 14:30 Lorazepam (Ativan) 0.5 mg Q6H PRN IV ANXIETY Last administered on 08/11/16 01: 30; Admin Dose 0.5 MG; Start 08/10/16 at 23:30 Furosemide (Lasix) 20 mg DAILY IV Last administered on 08/18/16 08:18; Admin Dose 20 MG; Start 08/14/16 at 09:00 Cyanocobalamin 1000 mcg 1,000 mcg DAILY IM Last administered on 08/18/16 08:17 ; Admin Dose 1,000 MCG; Start 08/15/16 at 09:00; Stop 08/21/16 at 08:59 Ceftriaxone Sodium (Rocephin) 50 ml @ 100 mls/hr Q24H IVPB Last administered on 08/17/16 20:23; Admin Dose 100 MLS/HR; Start 08/14/16 at 20:00 Insulin Glargine (Lantus) 16 unit DAILY@20 SC Last administered on 08/17/16 20: 33; Admin Dose 16 UNIT; Start 08/16/16 at 20:00 Dexamethasone (Decadron) 4 mg Q8 PO Last administered on 08/18/16 06:39; Admin Dose 4 MG; Start 08/17/16 at 07:30 Insulin Human NPH (Humulin N) 8 unit Q8 SC ; Start 08/18/16 at 14:00 Insulin Human NPH (Humulin N) 8 unit Q8 SC ; Start 08/18/16 at 14:00 BEENA ROWLAND Aug 18, 2016 11:44
[2016-08-18] MEDS ORDERED: NPH, HUMAN INSULIN ISOPHANE 3ML VIAL SC SCH (14:00)
--- NOTE | 2016-08-18 15:33 | CONS ---
Date/Time of Note Date/Time of Note DATE: 08/18/16 TIME: 15:30 Assessment/Plan Assessment/Plan Additional Assessment/Plan 1. Severe hyponatremia with a sodium 114 on admission. Improved Na- 134 2. Acute metabolic encephalopathy and fall at home secondary to severe hyponatremia. 3. Hypovolemic hyponatremia versus syndrome of inappropriate diuretic hormone. 4. Hypertension. 5. Hyperlipidemia. 6. History of prostate carcinoma. 7. History of diabetes mellitus. 8. History of bilateral knee arthritis. 9. Anemia, Iron deficiency,iron sat 16%, normal ferritin Plan: S/p 3 % saline,and S/p one dose of tolvaptan 15 gram PO x 1 dose - now Na normal today Cr normal, K normal will continue to follow up Stable to transfer to [place] per primary Further recommendations depend upon patient's clinical course. Plan of care dw Dr Loretta Howard /staff Consultation Date/Type/Reason Admit Date/Time Aug 09, 2016 at 23:11 Initial Consult Date 08/12/16 Type of Consultation: nephrology Referring Provider: CHANELLE PAUL MD 24 HR Interval Summary Free Text/Dictation Feels better, will be transferred to [place] , afebrile, no hematuria , H/H stable, Na improved. Son at bed side- all Qs answered. dw staff- no new issues reported. Constitutional: improved Detailed Summary Cardiovascular: no complaints Gastrointestinal: no complaints Genitourinary: no complaints Musculoskeletal: no complaints Exam/Review of Systems Vital Signs Vitals Vital Signs Date Time Temp Pulse Resp B/P Pulse Ox O2 Delivery O2 Flow Rate FiO2 08/18/16 07:19 97.9 88 20 153/67 97 Intake and Output 08/17/16 08/17/16 08/18/16 15:00 23:00 07:00 Intake Total 360 ml 300 ml 290 ml Output Total 628 ml 173 ml Balance -268 ml 300 ml 117 ml Exam Constitutional: alert, oriented, well developed Psych: nl mood/affect Respiratory: clear to auscultation, normal air movement Cardiovascular: nl pulses, regular rate and rhythm Gastrointestinal: non-tender, soft Musculoskeletal: nl extremities to inspection Extremities: normal pulses Neurological: nl mental status, nl speech Lymph: nontender Results Result Diagram: 08/17/16 0555 08/18/16 0642 Results 24 hrs Laboratory Tests Test 08/17/16 17:16 08/17/16 20:27 08/17/16 22:47 08/18/16 06:34 Bedside Glucose 128 176 128 64 L Test 08/18/16 06:42 08/18/16 07:03 08/18/16 07:19 08/18/16 08:15 Sodium Level 134 L Potassium Level 4.1 Chloride Level 105 Carbon Dioxide Level 24 Anion Gap 9 Blood Urea Nitrogen 15 Creatinine 0.45 L Glucose Level 64 L Calcium Level 7.1 L Bedside Glucose 75 92 83 Test 08/18/16 12:23 Bedside Glucose 172 Medications Medications Current Medications Diltiazem HCl (Cardizem Iv) 5 mg Q6H PRN IV ELEVATED HEART RATE; Start 08/10/16 at 03:45 Pantoprazole (Protonix Iv) 40 mg DAILY@06 IV Last administered on 08/18/16 06: 28; Admin Dose 40 MG; Start 08/10/16 at 06:00 Acetaminophen (Tylenol Supp) 500 mg Q6H PRN [place] FEVER; Start 08/10/16 at 03:00 Miscellaneous Information 1 ea NOTE XX ; Start 08/10/16 at 03:45 Glucose (Glutose) 15 gm Q15M PRN PO DECREASED GLUCOSE; Start 08/10/16 at 03:45 Glucose (Glutose) 22.5 gm Q15M PRN PO DECREASED GLUCOSE; Start 08/10/16 at 03:45 Dextrose (D50w Syringe) 25 ml Q15M PRN IV DECREASED GLUCOSE; Start 08/10/16 at 03:45 Dextrose (D50w Syringe) 50 ml Q15M PRN IV DECREASED GLUCOSE; Start 08/10/16 at 03:45 Glucagon (Glucagen) 1 mg Q15M PRN IM DECREASED GLUCOSE; Start 08/10/16 at 03:45 Glucose (Glutose) 15 gm Q15M PRN BUCCAL DECREASED GLUCOSE; Start 08/10/16 at 03: 45 [facility] This patient melendez... PRN PRN XX WOUND CARE; Start 08/10/16 at 12:00 Metoprolol Tartrate (Lopressor) 25 mg BID PO Last administered on 08/18/16 08: 17; Admin Dose 25 MG; Start 08/10/16 at 21:00 Amiodarone HCl (Cordarone) 200 mg BID PO Last administered on 08/18/16 08:18; Admin Dose 200 MG; Start 08/10/16 at 21:00 Metoprolol Tartrate (Lopressor) 5 mg Q4H PRN IV hr>110 hold sbp<100; Start 08/10 at 14:30 Lorazepam (Ativan) 0.5 mg Q6H PRN IV ANXIETY Last administered on 08/11/16 01: 30; Admin Dose 0.5 MG; Start 08/10/16 at 23:30 Furosemide (Lasix) 20 mg DAILY IV Last administered on 08/18/16 08:18; Admin Dose 20 MG; Start 08/14/16 at 09:00 Cyanocobalamin 1000 mcg 1,000 mcg DAILY IM Last administered on 08/18/16 08:17 ; Admin Dose 1,000 MCG; Start 08/15/16 at 09:00; Stop 08/21/16 at 08:59 Ceftriaxone Sodium (Rocephin) 50 ml @ 100 mls/hr Q24H IVPB Last administered on 08/17/16 20:23; Admin Dose 100 MLS/HR; Start 08/14/16 at 20:00 Insulin Glargine (Lantus) 16 unit DAILY@20 SC Last administered on 08/17/16 20: 33; Admin Dose 16 UNIT; Start 08/16/16 at 20:00 Dexamethasone (Decadron) 4 mg Q8 PO Last administered on 08/18/16 14:08; Admin Dose 4 MG; Start 08/17/16 at 07:30 Insulin Human NPH (Humulin N) 8 unit Q8 SC Last administered on 08/18/16 14:13 ; Admin Dose 8 UNIT; Start 08/18/16 at 14:00 BIBIANA DUKE Aug 18, 2016 15:33
[2016-08-18 15:57] VITALS: BP 146/70; RESP 16
[2016-08-18 19:40] VITALS: BP 161/70; RESP 16
[2016-08-18] MEDS: INSULIN GLARGINE [LANtus] 3 ML PEN SC SCH (21:19)
[2016-08-18] MEDS: CEFTRIAXONE 1 GM/50 ML (PMX) 50 ML IVPB SCH (21:25)
[2016-08-18] MEDS: ZOLPIDEM 5 MG TAB PO PRN (22:04)
[2016-08-19 00:31] VITALS: BP 117/56; RESP 18
[2016-08-19 02:00] VITALS: PULSE 51
[2016-08-19 05:19] LABS: ADD SCAN DIFF NO
[2016-08-19 05:22] LABS: BASOPHILS % 0.1 % (0.0-2.0); EOSINOPHILS % 0.2 % (0.0-7.0); HEMOGLOBIN 10.4 g/dl (14.0-18.0); LYMPHOCYTES # 1.7 10^3/ul (0.8-2.9); LYMPHOCYTES % 14.4 % (15.0-51.0); MEAN CORPUSCULAR HEMOGLOBIN 29.2 pg (29.0-33.0); MEAN CORPUSCULAR HGB CONC 32.5 g/dl (32.0-37.0); MEAN CORPUSCULAR VOLUME 89.9 fl (82.0-101.0); MEAN PLATELET VOLUME 8.9 fl (7.4-10.4); MONOCYTE # 0.6 10^3/ul (0.3-0.9); MONOCYTES % 5.2 % (0.0-11.0); NEUTROPHIL # 8.8 10^3/ul (1.6-7.5); NEUTROPHILS % 75.1 % (39.0-77.0); NUCLEATED RED BLOOD CELLS # 0.1 10^3/ul (0.0-0.0); NUCLEATED RED BLOOD CELLS% 0.7 /100WBC (0.0-0.0); PLATELET COUNT 178 10^3/UL (140-415); RED BLOOD COUNT 3.56 10^6/ul (4.70-6.10); WHITE BLOOD COUNT 11.7 10^3/ul (4.8-10.8)
[2016-08-19] MEDS: PANTOPRAZOLE 40 MG INJ IV SCH (05:33)
[2016-08-19] MEDS: DEXAMETHASONE 4 MG TAB PO SCH ×3 (05:33→21:02)
[2016-08-19 05:56] LABS: CALCIUM 7.3 mg/dl (8.4-10.2); CREATININE 0.43 mg/dl (0.61-1.24); POTASSIUM 4.4 mmol/L (3.5-5.1)
[2016-08-19] MEDS: NPH, HUMAN INSULIN ISOPHANE 3ML VIAL SC SCH ×3 (06:29→21:04)
[2016-08-19] MEDS: Insulin NOVOLOG SS MILD Algorithm (SS with meals and bedtime) SC SCH ×4 (07:30→20:35)
[2016-08-19 07:38] VITALS: BP 150/69; RESP 18
[2016-08-19] MEDS: METOPROLOL 25 MG TAB PO SCH ×2 (08:45→20:39)
[2016-08-19] MEDS: AMIODARONE 200 MG TAB PO SCH (08:47)
[2016-08-19] MEDS: FUROSEMIDE 20 MG INJ IV SCH (08:51)
[2016-08-19] MEDS: INSULIN ASPART [NOVOLOG] 3 ML PEN SC SCH ×3 (09:30→17:22)
--- NOTE | 2016-08-19 10:48 | CONS ---
DATE OF ADMISSION: 08/09/2016 DATE OF CONSULTATION: 08/16/2016 DIAGNOSIS: Metastatic castrate-resistant prostate cancer. NARRATIVE: The patient is an 86-year-old gentleman with a history of metastatic prostate cancer who was admitted to [facility] with complaints of altered mental status, decreased appetite and nausea. He was found to have hyponatremia and therefore admitted to the hospital. He has also been complaining of diffuse body pain, presumably from metastatic disease of prostatic origin. It appears that his PSA has been rising despite hormone blockade. His family relates a several month history of inability to walk somewhat related to knee pain. He has also had issues with increased nocturia up to 10 times at night, increased daytime frequency, urgency and incontinence and possibly some urinary retention. During this hospitalization, he has had the Montesinos catheter placed twice, but he has pulled it out causing urethral bleeding. I have been asked to see the patient by Dr. Sinclair to assess the patient for possible palliative radiation therapy to help with his extremity weakness. The patient was apparently diagnosed with metastatic prostate cancer at [facility] back in 2008. He was subsequently managed by Dr. Huang with primary hormone blockade. He was receiving Depo Lupron shots every 3 months through 06/2014. At the time, the pubis was approximately 2. The patient was then lost to follow up until early 2016 when he represented with complaints of back pain as well as urinary difficulties. His PSA had risen to 205. He received a 3 month Lupron shot in May. He has received a 1-month shot during this hospitalization on 08/14/2016. He apparently underwent an outpatient bone scan on 05/16/2016 that showed diffuse metastatic disease involving the axial and to a lesser degree the appendicular skeleton. The patient also admits to some constipation, but no bowel leakage. He denies pain with defecation. During this hospitalization, the PSA was repeated and was 892 with a testosterone level that was apparently in the hypogonad range. The alkaline phosphatase level range between 801,000. He did receive injection of Zometa on 08/12/2016. An MRI of the brain on 08/13/2016 showed no evidence to suggest intracranial or osseous metastatic disease. An upper extremity Doppler ultrasound on 08/12/2016 showed no evidence of clot. An MRI of the cervical spine was limited by motion artifact and did show abnormal heterogeneous signal intensity consistent with diffuse metastatic disease without a pathologic fracture. There was mild enhancement of anterior and posterior epidural space concerning for possible carcinomatosis. MRI of the lumbar spine on 08/14/2016 also confirmed extensive sclerotic metastases, but no involvement of the spinal cord or thecal sac by tumor. MRI of the thoracic spine on 08/14/2016 again showed diffuse sclerotic metastases as well as large bilateral pleural effusions. A CT chest, abdomen and pelvis on 08/13/2016 confirmed large bilateral pleural effusions, prominent left periaortic lymphadenopathy as well as left common iliac lymphadenopathy and diffuse osseous metastatic disease and diffuse degenerative spondylosis of the spine. The patient has also received 2 units of packed red blood cells as his hemoglobin was 6.9 on 08/12/2016, and increased to 9.2 post-transfusion. According to the nursing staff, the patient is not consistently asking for any pain medication. PAST MEDICAL HISTORY: Anemia, urinary retention and hematuria. Diabetes mellitus, hypertension, osteoarthritis, hyperlipidemia, history of heart disease. PAST SURGICAL HISTORY: ERCP in 2015 for stones. Appendectomy in 2008, history of cataract surgery. ALLERGIES TO MEDICATIONS: NONE. INPATIENT MEDICATIONS: 1. Diltiazem. 2. Protonix. 3. Tylenol. 4. Lopressor. 5. Amiodarone. 6. Ativan p.r.n. 7. Lantus insulin. 8. Lasix. 9. Cyanocobalamin. SOCIAL HISTORY: No significant tobacco or alcohol use. FAMILY HISTORY: Mother with esophageal cancer. REVIEW OF SYSTEMS: GENERAL: No current complaints of fever, chills or sweats. ENT: No otalgia, dysphagia or hoarseness. NEUROLOGIC: No history of dizziness or seizure activity. Questionable history of lower extremity and left upper extremity weakness. PULMONARY: No history of shortness of breath, cough, hemoptysis or wheezing. CARDIOVASCULAR: No current chest pain. History of paroxysmal atrial fibrillation. GASTROINTESTINAL: Some nausea. Decreased appetite and weight loss. Rare diarrhea. Usually constipated. No rectal bleeding. GENITOURINARY: As above. ENDOCRINE: No history of thyroid disease. SKIN: No history of lupus, scleroderma or shingles. MUSCULOSKELETAL: Generalized body pain, especially in the knees. PHYSICAL EXAMINATION: GENERAL: Elderly, frail-appearing gentleman in no distress. HEENT: Sclerae are anicteric. Pupils are myotic. Extraocular motions are intact. No cranial nerve abnormalities observed. No facial droop. ABDOMEN: Soft, nontender, without rebound, guarding, rigidity. EXTREMITIES: No cyanosis or edema. MUSCULOSKELETAL: Diffuse tenderness throughout the thoracic and lumbar spine. Minimal tenderness in the lateral hip regions. NEUROLOGIC: The patient can move all extremities well and against gravity and some resistance. No focal sensory deficits. RECTAL EXAMINATION: Decreased rectal tone. No blood seen on the examining glove. Stool is dark. The prostate is hard with extra prostatic cancer appreciated in the left mid gland to the left apex and inferiorly. DATA: I did review the MRI with radiology, and again I confirmed there is no evidence of tumor extension into the spinal canal. All stenosis is from degenerative changes. ASSESSMENT AND PLAN: The patient is an 86-year-old gentleman who is a patient who was diagnosed with prostate cancer in 2008 and managed with primary hormone blockade and now seems to be displaying evidence of castrate resistant disease. He has received Zometa. Lupron continues. He is being considered for abiraterone as an outpatient. I agree that palliation therapy could be of benefit if there were an isolated region of significant pain. The patient does not have evidence of neurologic compromise and thus I do not see an urgent need to treat. Instead it would be reasonable to have the patient initiate second line systemic therapy and thereafter to reassess a response. If he would begin to have more focal complaints of pain or any evidence of neurologic deterioration, I would recommend that he be reassessed at that time. Also, consideration could be given at a later date to arrange treatment to the local site as some of his symptoms may be due from local progression. ADDENDUM: The patient did deny any prior history of radiation treatment either definitively or palliatively in the past. Dictated By: TEODORA GALVEZ/CHERRY Conf#: [id number] DID#: [id number]
--- NOTE | 2016-08-19 11:41 | CONS ---
Date/Time of Note Date/Time of Note DATE: 08/19/16 TIME: 11:39 Assessment/Plan Assessment/Plan Chief Complaint/Hosp Course IMPRESSION: 1. Paroxysmal atrial flutter, remains in sinus rhythm at this time 2. Abnl electrocardiogram, assess for acute coronary syndrome. -negative troponin x 3 3. Congestive heart failure by chest x-ray, diastolic, likely acute on chronic. -EF normal by echo this admit 4. Hypertension under reasonable control with episodes of borderline hypotension. 5. Altered mental state/encephalopathy. 6. Hyponatremia-improved s/p dose of tolvaptan 7. Urinary tract infection. 8. Anemia. 9. PLeural effusions bilateral 10.Prostate ca-metastatic Recc: -Tele -Continue BB/amio but will decrease dose given bradycardia today -Follow rhythm closely -Not on systemic anti-coag given anemia requiring transfusions. -Continue gentle lasix diuresis but will change to PO and follow na closely -Continue lupron/decadron -Check BNP to further assess current volume status Problems: Consultation Date/Type/Reason Admit Date/Time Aug 09, 2016 at 23:11 Initial Consult Date 08/12/16 Type of Consultation: Cardiology Reason for Consultation PAFL Referring Provider: CHANELLE PAUL MD Exam/Review of Systems Vital Signs Vitals Vital Signs Date Time Temp Pulse Resp B/P Pulse Ox O2 Delivery O2 Flow Rate FiO2 08/19/16 07:38 98.1 48 18 150/69 95 Intake and Output 08/18/16 08/18/16 08/19/16 15:00 23:00 07:00 Intake Total 820 ml Output Total 630 ml Balance 190 ml Exam Review of Systems: CONSTITUTIONAL: No fevers, chills. PULMONARY: No sob CARDIOVASCULAR: No chest pain/palpitations GASTROINTESTINAL: No nausea/vomiting. GENITOURINARY: No hematuria/dysuria. MUSCULOSKELETAL: No myagias/arthalgias. PSYCHIATRIC: The patient denies depression. NEUROLOGIC: No weakness Constitutional: alert Psych: no complaints Head: normocephalic ENMT: mucosa pink and moist Neck: jvd (9 cm water), supple Respiratory: diminished breath sounds (at bases/B) Cardiovascular: regular rate and rhythm Gastrointestinal: non-tender, soft Musculoskeletal: muscle weakness (generalized mild) Extremities: edema (none) Neurological: other (NO focal deficits) Results Result Diagram: 08/19/16 0458 08/19/16 0450 Results 24 hrs Laboratory Tests Test 08/18/16 12:23 08/18/16 17:47 08/18/16 20:38 08/19/16 02:04 Bedside Glucose 172 154 221 H 115 Test 08/19/16 04:50 08/19/16 04:58 08/19/16 06:22 08/19/16 08:04 Sodium Level 131 L Potassium Level 4.4 Chloride Level 101 Carbon Dioxide Level 26 Anion Gap 8 Blood Urea Nitrogen 14 Creatinine 0.43 L Glucose Level 101 Calcium Level 7.3 L White Blood Count 11.7 #H Red Blood Count 3.56 L Hemoglobin 10.4 L Hematocrit 32.0 L Mean Corpuscular Volume 89.9 Mean Corpuscular Hemoglobin 29.2 Mean Corpuscular Hemoglobin Concent 32.5 Red Cell Distribution Width 18.0 H Platelet Count 178 Mean Platelet Volume 8.9 Neutrophils % 75.1 Lymphocytes % 14.4 L Monocytes % 5.2 Eosinophils % 0.2 Basophils % 0.1 Nucleated Red Blood Cells % 0.7 H Neutrophils # 8.8 H Lymphocytes # 1.7 Monocytes # 0.6 Eosinophils # 0.0 Basophils # 0.0 Nucleated Red Blood Cells # 0.1 H Bedside Glucose 96 90 Medications Medications Current Medications Diltiazem HCl (Cardizem Iv) 5 mg Q6H PRN IV ELEVATED HEART RATE; Start 08/10/16 at 03:45 Pantoprazole (Protonix Iv) 40 mg DAILY@06 IV Last administered on 08/19/16t 05: 33; Admin Dose 40 MG; Start 08/10/16 at 06:00 Acetaminophen (Tylenol Supp) 500 mg Q6H PRN [place] FEVER; Start 08/10/16 at 03:00 Miscellaneous Information 1 ea NOTE XX ; Start 08/10/16 at 03:45 Glucose (Glutose) 15 gm Q15M PRN PO DECREASED GLUCOSE; Start 08/10/16 at 03:45 Glucose (Glutose) 22.5 gm Q15M PRN PO DECREASED GLUCOSE; Start 08/10/16 at 03:45 Dextrose (D50w Syringe) 25 ml Q15M PRN IV DECREASED GLUCOSE; Start 08/10/16 at 03:45 Dextrose (D50w Syringe) 50 ml Q15M PRN IV DECREASED GLUCOSE; Start 08/10/16 at 03:45 Glucagon (Glucagen) 1 mg Q15M PRN IM DECREASED GLUCOSE; Start 08/10/16 at 03:45 Glucose (Glutose) 15 gm Q15M PRN BUCCAL DECREASED GLUCOSE; Start 08/10/16 at 03: 45 [facility] This patient melendez... PRN PRN XX WOUND CARE; Start 08/10/16 at 12:00 Metoprolol Tartrate (Lopressor) 25 mg BID PO Last administered on 08/18/16 21: 15; Admin Dose 25 MG; Start 08/10/16 at 21:00 Amiodarone HCl (Cordarone) 200 mg BID PO Last administered on 08/18/16 21:14; Admin Dose 200 MG; Start 08/10/16 at 21:00 Metoprolol Tartrate (Lopressor) 5 mg Q4H PRN IV hr>110 hold sbp<100; Start 08/10 at 14:30 Lorazepam (Ativan) 0.5 mg Q6H PRN IV ANXIETY Last administered on 08/11/16 01: 30; Admin Dose 0.5 MG; Start 08/10/16 at 23:30 Furosemide (Lasix) 20 mg DAILY IV Last administered on 08/19/16 08:51; Admin Dose 20 MG; Start 08/14/16 at 09:00 Cyanocobalamin 1000 mcg 1,000 mcg DAILY IM Last administered on 08/18/16 08:17 ; Admin Dose 1,000 MCG; Start 08/15/16 at 09:00; Stop 08/21/16 at 08:59 Ceftriaxone Sodium (Rocephin) 50 ml @ 100 mls/hr Q24H IVPB Last administered on 08/18/16 21:25; Admin Dose 100 MLS/HR; Start 08/14/16 at 20:00 Insulin Glargine (Lantus) 16 unit DAILY@20 SC Last administered on 08/18/16 21 :19; Admin Dose 16 UNIT; Start 08/16/16 at 20:00 Dexamethasone (Decadron) 4 mg Q8 PO Last administered on 08/19/16 05:33; Admin Dose 4 MG; Start 08/17/16 at 07:30 Insulin Human NPH (Humulin N) 8 unit Q8 SC Last administered on 08/19/16 06:29 ; Admin Dose 8 UNIT; Start 08/18/16 at 14:00 Zolpidem Tartrate (Ambien) 5 mg HS PRN PO INSOMNIA Last administered on 22:04; Admin Dose 5 MG; Start 08/18/16 at 22:00 ROSI ROBERTSON Aug 19, 2016 11:41
--- NOTE | 2016-08-19 12:01 | PN ---
Date/Time of Note Date/Time of Note DATE: 08/19/16 TIME: 12:01 Assessment/Plan VTE Prophylaxis VTE Prophylaxis Intervention: other Lines/Catheters IV Catheter Type (from [facility]): [facility] Urinary Cath still in place: No Assessment/Plan Chief Complaint/Hosp Course - Metastatic prostate cancer. Dr. Sinclair is following in hematology consultation. Dr. Huang is following in urology consultation. On Lupron status post Zometa. Discussed with Dr. Sinclair, patient had no cord compression per evaluation by Dr. Coto radiation oncology. - Acute metabolic encephalopathy, resolving. - Bilateral pleural effusions - Paroxysmal atrial flutter. Dr. Ragsdale is following and cardiology consultation. - Diastolic dysfunction congestive heart failure. Continue Lasix monitor electrolytes. - Hyponatremia secondary to SIADH, resolved. Dr. Howard is following patient in nephrology consultation. Continue intravenous fluids. - Diabetes mellitus. Continue Lantus and NovoLog. - Anemia, status post blood transfusion. Continue to monitor hemoglobin and hematocrit. - Hypertension. - Urinary retention. Continue to follow up urology recommendation. Problems: Subjective 24 Hr Interval Summary Free Text/Dictation Patient has no complaints Exam/Review of Systems Vital Signs Vitals Vital Signs Date Time Temp Pulse Resp B/P Pulse Ox O2 Delivery O2 Flow Rate FiO2 08/19/16 07:38 98.1 48 18 150/69 95 Intake and Output 08/18/16 08/18/16 08/19/16 15:00 23:00 07:00 Intake Total 820 ml Output Total 630 ml Balance 190 ml Exam Constitutional: well developed Head: atraumatic, normocephalic Neck: supple Respiratory: clear to auscultation Cardiovascular: regular rate and rhythm Gastrointestinal: non-tender, soft Extremities: normal pulses Results Result Diagram: 08/19/16 0458 08/19/16 0450 Results 24 hrs Laboratory Tests Test 08/18/16 12:23 08/18/16 17:47 08/18/16 20:38 08/19/16 02:04 Bedside Glucose 172 154 221 H 115 Test 08/19/16 04:50 08/19/16 04:58 08/19/16 06:22 08/19/16 08:04 Sodium Level 131 L Potassium Level 4.4 Chloride Level 101 Carbon Dioxide Level 26 Anion Gap 8 Blood Urea Nitrogen 14 Creatinine 0.43 L Glucose Level 101 Calcium Level 7.3 L White Blood Count 11.7 #H Red Blood Count 3.56 L Hemoglobin 10.4 L Hematocrit 32.0 L Mean Corpuscular Volume 89.9 Mean Corpuscular Hemoglobin 29.2 Mean Corpuscular Hemoglobin Concent 32.5 Red Cell Distribution Width 18.0 H Platelet Count 178 Mean Platelet Volume 8.9 Neutrophils % 75.1 Lymphocytes % 14.4 L Monocytes % 5.2 Eosinophils % 0.2 Basophils % 0.1 Nucleated Red Blood Cells % 0.7 H Neutrophils # 8.8 H Lymphocytes # 1.7 Monocytes # 0.6 Eosinophils # 0.0 Basophils # 0.0 Nucleated Red Blood Cells # 0.1 H Bedside Glucose 96 90 Medications Medications Current Medications Diltiazem HCl (Cardizem Iv) 5 mg Q6H PRN IV ELEVATED HEART RATE; Start 08/10/16 at 03:45 Pantoprazole (Protonix Iv) 40 mg DAILY@06 IV Last administered on 08/19/16 05: 33; Admin Dose 40 MG; Start 08/10/16 at 06:00 Acetaminophen (Tylenol Supp) 500 mg Q6H PRN [place] FEVER; Start 08/10/16 at 03:00 Miscellaneous Information 1 ea NOTE XX ; Start 08/10/16 at 03:45 Glucose (Glutose) 15 gm Q15M PRN PO DECREASED GLUCOSE; Start 08/10/16 at 03:45 Glucose (Glutose) 22.5 gm Q15M PRN PO DECREASED GLUCOSE; Start 08/10/16 at 03:45 Dextrose (D50w Syringe) 25 ml Q15M PRN IV DECREASED GLUCOSE; Start 08/10/16 at 03:45 Dextrose (D50w Syringe) 50 ml Q15M PRN IV DECREASED GLUCOSE; Start 08/10/16 at 03:45 Glucagon (Glucagen) 1 mg Q15M PRN IM DECREASED GLUCOSE; Start 08/10/16 at 03:45 Glucose (Glutose) 15 gm Q15M PRN BUCCAL DECREASED GLUCOSE; Start 08/10/16 at 03: 45 Miscellaneous Information [facility] This patient melendez... PRN PRN XX WOUND CARE; Start 08/10/16 at 12:00 Metoprolol Tartrate (Lopressor) 25 mg BID PO Last administered on 08/18/16 21: 15; Admin Dose 25 MG; Start 08/10/16 at 21:00 Metoprolol Tartrate (Lopressor) 5 mg Q4H PRN IV hr>110 hold sbp<100; Start 08/10 at 14:30 Lorazepam (Ativan) 0.5 mg Q6H PRN IV ANXIETY Last administered on 08/11/16 01: 30; Admin Dose 0.5 MG; Start 08/10/16 at 23:30 Cyanocobalamin 1000 mcg 1,000 mcg DAILY IM Last administered on 08/18/16 08:17 ; Admin Dose 1,000 MCG; Start 08/15/16 at 09:00; Stop 08/21/16 at 08:59 Ceftriaxone Sodium (Rocephin) 50 ml @ 100 mls/hr Q24H IVPB Last administered on 08/18/16 21:25; Admin Dose 100 MLS/HR; Start 08/14/16 at 20:00 Insulin Glargine (Lantus) 16 unit DAILY@20 SC Last administered on 08/18/16 21 :19; Admin Dose 16 UNIT; Start 08/16/16 at 20:00 Dexamethasone (Decadron) 4 mg Q8 PO Last administered on 08/19/16 05:33; Admin Dose 4 MG; Start 08/17/16 at 07:30 Insulin Human NPH (Humulin N) 8 unit Q8 SC Last administered on 08/19/16 06:29 ; Admin Dose 8 UNIT; Start 08/18/16 at 14:00 Zolpidem Tartrate (Ambien) 5 mg HS PRN PO INSOMNIA Last administered on 22:04; Admin Dose 5 MG; Start 08/18/16 at 22:00 Amiodarone HCl (Cordarone) 200 mg DAILY PO ; Start 08/20/16 at 09:00 Furosemide (Lasix) 20 mg DAILY PO ; Start 08/20/16 at 09:00 BEENA ROWLAND Aug 19, 2016 12:01
[2016-08-19] MEDS: CYANOCOBALAMIN 1000 MCG INJ IM SCH (14:08)
--- NOTE | 2016-08-19 17:08 | CONS ---
Date/Time of Note Date/Time of Note DATE: 08/19/16 TIME: 17:04 Assessment/Plan Assessment/Plan Additional Assessment/Plan 1. Severe hyponatremia with a sodium 114 on admission. Improved Na- 131 2. Acute metabolic encephalopathy and fall at home secondary to severe hyponatremia. 3. Hypovolemic hyponatremia versus syndrome of inappropriate diuretic hormone. 4. Hypertension. 5. Hyperlipidemia. 6. History of prostate carcinoma. 7. History of diabetes mellitus. 8. History of bilateral knee arthritis. 9. Anemia, Iron deficiency,iron sat 16%, normal ferritin Plan: S/p 3 % saline,and S/p one dose of tolvaptan 15 gram PO x 1 dose - now Na normal today Cr normal, K normal will continue to follow up Further recommendations depend upon patient's clinical course. Plan of care dw Dr oLretta Howard /staff Consultation Date/Type/Reason Admit Date/Time Aug 09, 2016 at 23:11 Initial Consult Date 08/12/16 Type of Consultation: nephrology Referring Provider: CHANELLE PAUL MD 24 HR Interval Summary Free Text/Dictation No hematuria, afebrile, family at bed side- all Qs ANSWERED. dw staff- no new issues reported. Constitutional: improved Detailed Summary Respiratory: no complaints Cardiovascular: no complaints Gastrointestinal: no complaints Genitourinary: no complaints Musculoskeletal: no complaints Exam/Review of Systems Vital Signs Vitals Vital Signs Date Time Temp Pulse Resp B/P Pulse Ox O2 Delivery O2 Flow Rate FiO2 08/19/16 07:38 98.1 48 18 150/69 95 Intake and Output 08/18/16 08/18/16 08/19/16 15:00 23:00 07:00 Intake Total 820 ml Output Total 630 ml Balance 190 ml Exam Constitutional: alert, oriented, well developed Psych: nl mood/affect Respiratory: clear to auscultation, normal air movement Cardiovascular: nl pulses, regular rate and rhythm Gastrointestinal: non-tender, soft Musculoskeletal: nl extremities to inspection Extremities: normal pulses Neurological: nl mental status, nl speech Results Result Diagram: 08/19/16 0458 08/19/16 0450 Results 24 hrs Laboratory Tests Test 08/18/16 17:47 08/18/16 20:38 08/19/16 02:04 08/19/16 04:50 Bedside Glucose 154 221 H 115 Sodium Level 131 L Potassium Level 4.4 Chloride Level 101 Carbon Dioxide Level 26 Anion Gap 8 Blood Urea Nitrogen 14 Creatinine 0.43 L Glucose Level 101 Calcium Level 7.3 L Test 08/19/16 04:58 08/19/16 06:22 08/19/16 08:04 08/19/16 12:20 White Blood Count 11.7 #H Red Blood Count 3.56 L Hemoglobin 10.4 L Hematocrit 32.0 L Mean Corpuscular Volume 89.9 Mean Corpuscular Hemoglobin 29.2 Mean Corpuscular Hemoglobin Concent 32.5 Red Cell Distribution Width 18.0 H Platelet Count 178 Mean Platelet Volume 8.9 Neutrophils % 75.1 Lymphocytes % 14.4 L Monocytes % 5.2 Eosinophils % 0.2 Basophils % 0.1 Nucleated Red Blood Cells % 0.7 H Neutrophils # 8.8 H Lymphocytes # 1.7 Monocytes # 0.6 Eosinophils # 0.0 Basophils # 0.0 Nucleated Red Blood Cells # 0.1 H Bedside Glucose 96 90 159 Test 08/19/16 14:03 Bedside Glucose 251 H Medications Medications Current Medications Diltiazem HCl (Cardizem Iv) 5 mg Q6H PRN IV ELEVATED HEART RATE; Start 08/10/16 at 03:45 Acetaminophen (Tylenol Supp) 500 mg Q6H PRN [place] FEVER; Start 08/10/16 at 03:00 Miscellaneous Information 1 ea NOTE XX ; Start 08/10/16 at 03:45 Glucose (Glutose) 15 gm Q15M PRN PO DECREASED GLUCOSE; Start 08/10/16 at 03:45 Glucose (Glutose) 22.5 gm Q15M PRN PO DECREASED GLUCOSE; Start 08/10/16 at 03:45 Dextrose (D50w Syringe) 25 ml Q15M PRN IV DECREASED GLUCOSE; Start 08/10/16 at 03:45 Dextrose (D50w Syringe) 50 ml Q15M PRN IV DECREASED GLUCOSE; Start 08/10/16 at 03:45 Glucagon (Glucagen) 1 mg Q15M PRN IM DECREASED GLUCOSE; Start 08/10/16 at 03:45 Glucose (Glutose) 15 gm Q15M PRN BUCCAL DECREASED GLUCOSE; Start 08/10/16 at 03: 45 Miscellaneous Information (Pending [facility] Order For Wound Care) This patient melendez... PRN PRN XX WOUND CARE; Start 08/10/16 at 12:00 Metoprolol Tartrate (Lopressor) 25 mg BID PO Last administered on 08/18/16 21: 15; Admin Dose 25 MG; Start 08/10/16 at 21:00 Metoprolol Tartrate (Lopressor) 5 mg Q4H PRN IV hr>110 hold sbp<100; Start 08/10 at 14:30 Lorazepam (Ativan) 0.5 mg Q6H PRN IV ANXIETY Last administered on 08/11/16 01: 30; Admin Dose 0.5 MG; Start 08/10/16 at 23:30 Cyanocobalamin 1000 mcg 1,000 mcg DAILY IM Last administered on 08/19/16 14:08 ; Admin Dose 1,000 MCG; Start 08/15/16 at 09:00; Stop 08/21/16 at 08:59 Ceftriaxone Sodium (Rocephin) 50 ml @ 100 mls/hr Q24H IVPB Last administered on 08/18/16 21:25; Admin Dose 100 MLS/HR; Start 08/14/16 at 20:00 Insulin Glargine (Lantus) 16 unit DAILY@20 SC Last administered on 08/18/16 21 :19; Admin Dose 16 UNIT; Start 08/16/16 at 20:00 Dexamethasone (Decadron) 4 mg Q8 PO Last administered on 08/19/16 14:04; Admin Dose 4 MG; Start 08/17/16 at 07:30 Insulin Human NPH (Humulin N) 8 unit Q8 SC Last administered on 08/19/16 14:08 ; Admin Dose 8 UNIT; Start 08/18/16 at 14:00 Zolpidem Tartrate (Ambien) 5 mg HS PRN PO INSOMNIA Last administered on 22:04; Admin Dose 5 MG; Start 08/18/16 at 22:00 Amiodarone HCl (Cordarone) 200 mg DAILY PO ; Start 08/20/16 at 09:00 Furosemide (Lasix) 20 mg DAILY PO ; Start 08/20/16 at 09:00 Pantoprazole (Protonix Tab) 40 mg DAILY@06 PO ; Start 08/20/16 at 06:00 BIBIANA DUKE Aug 19, 2016 17:08
[2016-08-19 19:50] VITALS: BP 164/70; RESP 18
[2016-08-19] MEDS: CEFTRIAXONE 1 GM/50 ML (PMX) 50 ML IVPB SCH (20:24)
[2016-08-19] MEDS: INSULIN GLARGINE [LANtus] 3 ML PEN SC SCH (20:35)
[2016-08-19 21:12] VITALS: BP 119/62; PULSE 52; RESP 16
[2016-08-20] MEDS: DEXAMETHASONE 4 MG TAB PO SCH ×3 (05:09→22:06)
[2016-08-20] MEDS: PANTOPRAZOLE (EC) 40 MG TAB PO SCH (05:09)
[2016-08-20] MEDS: NPH, HUMAN INSULIN ISOPHANE 3ML VIAL SC SCH ×3 (05:09→22:02)
[2016-08-20 06:11] LABS: ADD SCAN DIFF NO
[2016-08-20 06:14] LABS: BASOPHILS % 0.1 % (0.0-2.0); HEMATOCRIT 33.9 % (42.0-52.0); HEMOGLOBIN 11.3 g/dl (14.0-18.0); LYMPHOCYTES # 1.5 10^3/ul (0.8-2.9); LYMPHOCYTES % 11.6 % (15.0-51.0); MEAN CORPUSCULAR HEMOGLOBIN 29.4 pg (29.0-33.0); MEAN CORPUSCULAR HGB CONC 33.3 g/dl (32.0-37.0); MEAN CORPUSCULAR VOLUME 88.3 fl (82.0-101.0); MEAN PLATELET VOLUME 8.9 fl (7.4-10.4); MONOCYTE # 0.7 10^3/ul (0.3-0.9); MONOCYTES % 5.5 % (0.0-11.0); NEUTROPHIL # 10.1 10^3/ul (1.6-7.5); NEUTROPHILS % 78.4 % (39.0-77.0); NUCLEATED RED BLOOD CELLS # 0.1 10^3/ul (0.0-0.0); NUCLEATED RED BLOOD CELLS% 0.7 /100WBC (0.0-0.0); PLATELET COUNT 177 10^3/UL (140-415); RED BLOOD COUNT 3.84 10^6/ul (4.70-6.10); RED CELL DISTRIBUTION WIDTH 17.9 % (11.5-14.5); WHITE BLOOD COUNT 12.8 10^3/ul (4.8-10.8)
[2016-08-20 06:49] LABS: CALCIUM 7.6 mg/dl (8.4-10.2); CREATININE 0.45 mg/dl (0.61-1.24); POTASSIUM 4.4 mmol/L (3.5-5.1)
[2016-08-20 07:25] VITALS: BP 159/75; RESP 16
[2016-08-20] MEDS: Insulin NOVOLOG SS MILD Algorithm (SS with meals and bedtime) SC SCH ×4 (07:30→21:00)
[2016-08-20] MEDS: CYANOCOBALAMIN 1000 MCG INJ IM SCH (08:11)
[2016-08-20] MEDS: AMIODARONE 200 MG TAB PO SCH (08:11)
[2016-08-20] MEDS: METOPROLOL 25 MG TAB PO SCH ×2 (08:12→21:00)
[2016-08-20] MEDS: FUROSEMIDE 20 MG TAB PO SCH (08:12)
[2016-08-20] MEDS: INSULIN ASPART [NOVOLOG] 3 ML PEN SC SCH ×2 (12:07→17:27)
--- NOTE | 2016-08-20 12:57 | CONS ---
Date/Time of Note Date/Time of Note DATE: 08/20/16 TIME: 12:55 Assessment/Plan Assessment/Plan Chief Complaint/Hosp Course IMPRESSION: 1. Paroxysmal atrial flutter, remains in sinus rhythm at this time 2. Abnl electrocardiogram, assess for acute coronary syndrome. -negative troponin x 3 3. Congestive heart failure by chest x-ray, diastolic, likely acute on chronic. -EF normal by echo this admit 4. Hypertension under reasonable control with episodes of borderline hypotension. 5. Altered mental state/encephalopathy. 6. Hyponatremia-improved s/p dose of tolvaptan 7. Urinary tract infection. 8. Anemia. 9. PLeural effusions bilateral 10.Prostate ca-metastatic Recc: -Tele -Continue BB/amio but will decrease dose given ongoing bradycardia -Follow rhythm closely -Not on systemic anti-coag given anemia requiring transfusions. -Continue gentle lasix diuresis PO and follow na closely -Continue lupron/decadron -add ACEI Problems: Consultation Date/Type/Reason Admit Date/Time Aug 09, 2016 at 23:11 Initial Consult Date 08/12/16 Type of Consultation: Cardiology Reason for Consultation PAFL Referring Provider: CHANELLE PAUL MD Exam/Review of Systems Vital Signs Vitals Vital Signs Date Time Temp Pulse Resp B/P Pulse Ox O2 Delivery O2 Flow Rate FiO2 08/20/16 07:25 97.4 51 16 159/75 97 Intake and Output 08/19/16 08/19/16 08/20/16 15:00 23:00 07:00 Intake Total 2285 ml 360 ml Output Total 725 ml 625 ml Balance 1560 ml -265 ml Exam Review of Systems: CONSTITUTIONAL: No fevers, chills. PULMONARY: No sob CARDIOVASCULAR: No chest pain/palpitations GASTROINTESTINAL: No nausea/vomiting. GENITOURINARY: No hematuria/dysuria. MUSCULOSKELETAL: No myagias/arthalgias. PSYCHIATRIC: The patient denies depression. NEUROLOGIC: lethargic/confused Constitutional: alert Psych: confusion, no complaints Head: normocephalic ENMT: mucosa pink and moist Neck: jvd (8-9 cm water), supple Respiratory: diminished breath sounds (at bases/B) Cardiovascular: other (bradycardic, regular rhythm) Gastrointestinal: non-tender, soft Musculoskeletal: muscle tone (normal) Extremities: edema (none) Neurological: confused, lethargic Results Result Diagram: 08/20/16 0450 08/20/16 0450 Results 24 hrs Laboratory Tests Test 08/19/16 14:03 08/19/16 17:20 08/19/16 20:32 08/20/16 02:19 Bedside Glucose 251 H 187 314 H 142 Test 08/20/16 04:50 08/20/16 05:07 08/20/16 08:05 08/20/16 11:23 White Blood Count 12.8 H Red Blood Count 3.84 L Hemoglobin 11.3 L Hematocrit 33.9 L Mean Corpuscular Volume 88.3 Mean Corpuscular Hemoglobin 29.4 Mean Corpuscular Hemoglobin Concent 33.3 Red Cell Distribution Width 17.9 H Platelet Count 177 Mean Platelet Volume 8.9 Neutrophils % 78.4 H Lymphocytes % 11.6 L Monocytes % 5.5 Eosinophils % 0.0 Basophils % 0.1 Nucleated Red Blood Cells % 0.7 H Neutrophils # 10.1 H Lymphocytes # 1.5 Monocytes # 0.7 Eosinophils # 0.0 Basophils # 0.0 Nucleated Red Blood Cells # 0.1 H Sodium Level 128 L Potassium Level 4.4 Chloride Level 97 Carbon Dioxide Level 25 Anion Gap 10 Blood Urea Nitrogen 13 Creatinine 0.45 L Glucose Level 90 Calcium Level 7.6 L Bedside Glucose 96 76 149 Test 08/20/16 11:39 Lab Scanned Report REFERENCE LAB Medications Medications Current Medications Diltiazem HCl (Cardizem Iv) 5 mg Q6H PRN IV ELEVATED HEART RATE; Start 08/10/16 at 03:45 Acetaminophen (Tylenol Supp) 500 mg Q6H PRN [place] FEVER; Start 08/10/16 at 03:00 Miscellaneous Information 1 ea NOTE XX ; Start 08/10/16 at 03:45 Glucose (Glutose) 15 gm Q15M PRN PO DECREASED GLUCOSE; Start 08/10/16 at 03:45 Glucose (Glutose) 22.5 gm Q15M PRN PO DECREASED GLUCOSE; Start 08/10/16 at 03:45 Dextrose (D50w Syringe) 25 ml Q15M PRN IV DECREASED GLUCOSE; Start 08/10/16 at 03:45 Dextrose (D50w Syringe) 50 ml Q15M PRN IV DECREASED GLUCOSE; Start 08/10/16 at 03:45 Glucagon (Glucagen) 1 mg Q15M PRN IM DECREASED GLUCOSE; Start 08/10/16 at 03:45 Glucose (Glutose) 15 gm Q15M PRN BUCCAL DECREASED GLUCOSE; Start 08/10/16 at 03: 45 Miscellaneous Information (Pending [facility] Order For Wound Care) This patient melendez... PRN PRN XX WOUND CARE; Start 08/10/16 at 12:00 Metoprolol Tartrate (Lopressor) 25 mg BID PO Last administered on 08/18/16 21: 15; Admin Dose 25 MG; Start 08/10/16 at 21:00 Metoprolol Tartrate (Lopressor) 5 mg Q4H PRN IV hr>110 hold sbp<100; Start 08/10 at 14:30 Lorazepam (Ativan) 0.5 mg Q6H PRN IV ANXIETY Last administered on 08/11/16 01: 30; Admin Dose 0.5 MG; Start 08/10/16 at 23:30 Cyanocobalamin 1000 mcg 1,000 mcg DAILY IM Last administered on 08/20/16 08:11 ; Admin Dose 1,000 MCG; Start 08/15/16 at 09:00; Stop 08/21/16 at 08:59 Ceftriaxone Sodium (Rocephin) 50 ml @ 100 mls/hr Q24H IVPB Last administered on 08/19/16 20:24; Admin Dose 100 MLS/HR; Start 08/14/16 at 20:00 Insulin Glargine (Lantus) 16 unit DAILY@20 SC Last administered on 08/19/16 20 :35; Admin Dose 16 UNIT; Start 08/16/16 at 20:00 Dexamethasone (Decadron) 4 mg Q8 PO Last administered on 08/20/16 05:09; Admin Dose 4 MG; Start 08/17/16 at 07:30 Insulin Human NPH (Humulin N) 8 unit Q8 SC Last administered on 08/20/16 05:09 ; Admin Dose 8 UNIT; Start 08/18/16 at 14:00 Zolpidem Tartrate (Ambien) 5 mg HS PRN PO INSOMNIA Last administered on 22:04; Admin Dose 5 MG; Start 08/18/16 at 22:00 Amiodarone HCl (Cordarone) 200 mg DAILY PO Last administered on 08/20/16 08:11 ; Admin Dose 200 MG; Start 08/20/16 at 09:00 Furosemide (Lasix) 20 mg DAILY PO Last administered on 08/20/16 08:12; Admin Dose 20 MG; Start 08/20/16 at 09:00 Pantoprazole (Protonix Tab) 40 mg DAILY@06 PO Last administered on 08/20/16 05 :09; Admin Dose 40 MG; Start 08/20/16 at 06:00 ROSI ROBERTSON Aug 20, 2016 12:57
[2016-08-20] MEDS ORDERED: ACETAMINOPHEN 325 MG TAB PO PRN (13:54)
[2016-08-20] MEDS: HYDROCODONE/APAP (5/325) TAB PO PRN (14:02)
[2016-08-20] MEDS ORDERED: ACETAMINOPHEN 650 MG SUPP PR PRN (15:00)
--- NOTE | 2016-08-20 17:31 | PN ---
Date/Time of Note Date/Time of Note DATE: 08/20/16 TIME: 17:26 Assessment/Plan VTE Prophylaxis VTE Prophylaxis Intervention: SCD's Lines/Catheters IV Catheter Type (from [facility]): Saline Lock Urinary Cath still in place: No Assessment/Plan Chief Complaint/Hosp Course Patient denies any nausea vomiting, remains hemodynamically stable, pain is well controlled. PT eval and treatment pending. ASSESSMENT AND PLAN: - Metastatic prostate cancer. Dr. Sinclair is following in hematology consultation. Dr. Huang is following in urology consultation. On Lupron status post Zometa. Patient had no cord compression per evaluation by Dr. Coto, radiation oncology. - Acute metabolic encephalopathy, resolving. - Bilateral pleural effusions - Paroxysmal atrial flutter. Dr. Ragsdale is following and cardiology consultation. - Diastolic dysfunction congestive heart failure. Continue Lasix monitor electrolytes. - Hyponatremia secondary to SIADH, resolved. Dr. Howard is following patient in nephrology consultation. Continue intravenous fluids. - Diabetes mellitus. Continue Lantus and NovoLog. - Anemia, status post blood transfusion. Continue to monitor hemoglobin and hematocrit. - Hypertension. - Urinary retention. Continue to follow up urology recommendation. Case management for DC planning. Further recommendations based on clinical course. Plan of care discussed with Dr. Gregory. Problems: Exam/Review of Systems Vital Signs Vitals Vital Signs Date Time Temp Pulse Resp B/P Pulse Ox O2 Delivery O2 Flow Rate FiO2 08/20/16 07:25 97.4 51 16 159/75 97 Intake and Output 08/19/16 08/19/16 08/20/16 15:00 23:00 07:00 Intake Total 2285 ml 360 ml Output Total 725 ml 625 ml Balance 1560 ml -265 ml Exam Constitutional: alert, oriented Head: normocephalic Neck: supple Respiratory: diminished breath sounds Cardiovascular: nl pulses Gastrointestinal: non-tender, soft Genitourinary - Male: other (Montesinos catheter) Extremities: normal pulses Results Result Diagram: 08/20/16 0450 08/20/16 0450 Results 24 hrs Laboratory Tests Test 08/19/16 20:32 08/20/16 02:19 08/20/16 04:50 08/20/16 05:07 Bedside Glucose 314 H 142 96 White Blood Count 12.8 H Red Blood Count 3.84 L Hemoglobin 11.3 L Hematocrit 33.9 L Mean Corpuscular Volume 88.3 Mean Corpuscular Hemoglobin 29.4 Mean Corpuscular Hemoglobin Concent 33.3 Red Cell Distribution Width 17.9 H Platelet Count 177 Mean Platelet Volume 8.9 Neutrophils % 78.4 H Lymphocytes % 11.6 L Monocytes % 5.5 Eosinophils % 0.0 Basophils % 0.1 Nucleated Red Blood Cells % 0.7 H Neutrophils # 10.1 H Lymphocytes # 1.5 Monocytes # 0.7 Eosinophils # 0.0 Basophils # 0.0 Nucleated Red Blood Cells # 0.1 H Sodium Level 128 L Potassium Level 4.4 Chloride Level 97 Carbon Dioxide Level 25 Anion Gap 10 Blood Urea Nitrogen 13 Creatinine 0.45 L Glucose Level 90 Calcium Level 7.6 L Test 08/20/16 08:05 08/20/16 11:23 08/20/16 11:39 08/20/16 14:09 Bedside Glucose 76 149 214 Lab Scanned Report REFERENCE LAB Test 08/20/16 16:44 Bedside Glucose 137 Medications Medications Current Medications Diltiazem HCl (Cardizem Iv) 5 mg Q6H PRN IV ELEVATED HEART RATE; Start 08/10/16 at 03:45 Miscellaneous Information 1 ea NOTE XX ; Start 08/10/16 at 03:45 Glucose (Glutose) 15 gm Q15M PRN PO DECREASED GLUCOSE; Start 08/10/16 at 03:45 Glucose (Glutose) 22.5 gm Q15M PRN PO DECREASED GLUCOSE; Start 08/10/16 at 03:45 Dextrose (D50w Syringe) 25 ml Q15M PRN IV DECREASED GLUCOSE; Start 08/10/16 at 03:45 Dextrose (D50w Syringe) 50 ml Q15M PRN IV DECREASED GLUCOSE; Start 08/10/16 at 03:45 Glucagon (Glucagen) 1 mg Q15M PRN IM DECREASED GLUCOSE; Start 08/10/16 at 03:45 Glucose (Glutose) 15 gm Q15M PRN BUCCAL DECREASED GLUCOSE; Start 08/10/16 at 03: 45 Miscellaneous Information (Pending Santyl Order For Wound Care) This patient melendez... PRN PRN XX WOUND CARE; Start 08/10/16 at 12:00 Metoprolol Tartrate (Lopressor) 5 mg Q4H PRN IV hr>110 hold sbp<100; Start 08/10 at 14:30 Lorazepam (Ativan) 0.5 mg Q6H PRN IV ANXIETY Last administered on 08/11/16 01: 30; Admin Dose 0.5 MG; Start 08/10/16 at 23:30 Cyanocobalamin 1000 mcg 1,000 mcg DAILY IM Last administered on 08/20/16 08:11 ; Admin Dose 1,000 MCG; Start 08/15/16 at 09:00; Stop 08/21/16 at 08:59 Ceftriaxone Sodium (Rocephin) 50 ml @ 100 mls/hr Q24H IVPB Last administered on 08/19/16 20:24; Admin Dose 100 MLS/HR; Start 08/14/16 at 20:00 Insulin Glargine (Lantus) 16 unit DAILY@20 SC Last administered on 08/19/16 20 :35; Admin Dose 16 UNIT; Start 08/16/16 at 20:00 Dexamethasone (Decadron) 4 mg Q8 PO Last administered on 08/20/16 14:02; Admin Dose 4 MG; Start 08/17/16 at 07:30 Insulin Human NPH (Humulin N) 8 unit Q8 SC Last administered on 08/20/16 14:12 ; Admin Dose 8 UNIT; Start 08/18/16 at 14:00 Zolpidem Tartrate (Ambien) 5 mg HS PRN PO INSOMNIA Last administered on 22:04; Admin Dose 5 MG; Start 08/18/16 at 22:00 Amiodarone HCl (Cordarone) 200 mg DAILY PO Last administered on 08/20/16 08:11 ; Admin Dose 200 MG; Start 08/20/16 at 09:00 Furosemide (Lasix) 20 mg DAILY PO Last administered on 08/20/16 08:12; Admin Dose 20 MG; Start 08/20/16 at 09:00 Pantoprazole (Protonix Tab) 40 mg DAILY@06 PO Last administered on 08/20/16 05 :09; Admin Dose 40 MG; Start 08/20/16 at 06:00 Metoprolol Tartrate (Lopressor) 12.5 mg BID PO ; Start 08/20/16 at 21:00 Benazepril HCl (Lotensin) 10 mg DAILY PO ; Start 08/21/16 at 09:00 Acetaminophen (Tylenol Supp) 650 mg Q6H PRN [place] FEVER; Start 08/20/16 at 15:00 Acetaminophen/ Hydrocodone Bitart ([place] (5/325)) 1 tab Q6H PRN PO PAIN LEVEL 7 -10 Last administered on 08/20/16t 14:02; Admin Dose 1 TAB; Start 08/20/16 at 13 :53 Acetaminophen (Tylenol Tab) 650 mg Q4H PRN PO PAIN AND OR ELEVATED TEMP; Start 08/20/16 at 13:54 ROBERT CORRALES Aug 20, 2016 17:30
--- NOTE | 2016-08-20 19:21 | CONS ---
Date/Time of Note Date/Time of Note DATE: 08/20/16 TIME: 19:18 Assessment/Plan Assessment/Plan Additional Assessment/Plan 1. Severe hyponatremia with a sodium 114 on admission. 2. Acute metabolic encephalopathy and fall at home secondary to severe hyponatremia. 3. Hypovolemic hyponatremia versus syndrome of inappropriate diuretic hormone. 4. Hypertension. 5. Hyperlipidemia. 6. History of prostate carcinoma. 7. History of diabetes mellitus. 8. History of bilateral knee arthritis. 9. Anemia, Iron deficiency,iron sat 16%, normal ferritin Plan: S/p 3 % saline,and S/p one dose of tolvaptan 15 gram PO x 1 dose before- Na dropped to 128 today will start Na chloride table 1 gram PO TID Cr normal, K normal will continue to follow up Consultation Date/Type/Reason Admit Date/Time Aug 09, 2016 at 23:11 Type of Consultation: NEPHROLOGY Referring Provider: CHANELLE PAUL MD 24 HR Interval Summary Free Text/Dictation no acute events, BP stable Exam/Review of Systems Vital Signs Vitals Vital Signs Date Time Temp Pulse Resp B/P Pulse Ox O2 Delivery O2 Flow Rate FiO2 08/20/16 07:25 97.4 51 16 159/75 97 Intake and Output 08/19/16 08/19/16 08/20/16 15:00 23:00 07:00 Intake Total 2285 ml 360 ml Output Total 725 ml 625 ml Balance 1560 ml -265 ml Exam Constitutional: alert, frail, oriented Psych: no complaints Head: normocephalic Eyes: nl conjunctiva ENMT: nl external ears & nose Neck: non-tender, supple Respiratory: clear to auscultation Cardiovascular: regular rate and rhythm Musculoskeletal: nl extremities to inspection Results Result Diagram: 08/20/160 08/20/16 0450 Results 24 hrs Laboratory Tests Test 08/19/16 20:32 08/20/16 02:19 08/20/16 04:50 08/20/16 05:07 Bedside Glucose 314 H 142 96 White Blood Count 12.8 H Red Blood Count 3.84 L Hemoglobin 11.3 L Hematocrit 33.9 L Mean Corpuscular Volume 88.3 Mean Corpuscular Hemoglobin 29.4 Mean Corpuscular Hemoglobin Concent 33.3 Red Cell Distribution Width 17.9 H Platelet Count 177 Mean Platelet Volume 8.9 Neutrophils % 78.4 H Lymphocytes % 11.6 L Monocytes % 5.5 Eosinophils % 0.0 Basophils % 0.1 Nucleated Red Blood Cells % 0.7 H Neutrophils # 10.1 H Lymphocytes # 1.5 Monocytes # 0.7 Eosinophils # 0.0 Basophils # 0.0 Nucleated Red Blood Cells # 0.1 H Sodium Level 128 L Potassium Level 4.4 Chloride Level 97 Carbon Dioxide Level 25 Anion Gap 10 Blood Urea Nitrogen 13 Creatinine 0.45 L Glucose Level 90 Calcium Level 7.6 L Test 08/20/16 08:05 08/20/16 11:23 08/20/16 11:39 08/20/16 14:09 Bedside Glucose 76 149 214 Lab Scanned Report REFERENCE LAB Test 08/20/16 16:44 Bedside Glucose 137 Medications Medications Current Medications Diltiazem HCl (Cardizem Iv) 5 mg Q6H PRN IV ELEVATED HEART RATE; Start 08/10/16 at 03:45 Miscellaneous Information 1 ea NOTE XX ; Start 08/10/16 at 03:45 Glucose (Glutose) 15 gm Q15M PRN PO DECREASED GLUCOSE; Start 08/10/16 at 03:45 Glucose (Glutose) 22.5 gm Q15M PRN PO DECREASED GLUCOSE; Start 08/10/16 at 03:45 Dextrose (D50w Syringe) 25 ml Q15M PRN IV DECREASED GLUCOSE; Start 08/10/16 at 03:45 Dextrose (D50w Syringe) 50 ml Q15M PRN IV DECREASED GLUCOSE; Start 08/10/16 at 03:45 Glucagon (Glucagen) 1 mg Q15M PRN IM DECREASED GLUCOSE; Start 08/10/16 at 03:45 Glucose (Glutose) 15 gm Q15M PRN BUCCAL DECREASED GLUCOSE; Start 08/10/16 at 03: 45 Miscellaneous Information (Pending Santyl Order For Wound Care) This patient melendez... PRN PRN XX WOUND CARE; Start 08/10/16 at 12:00 Metoprolol Tartrate (Lopressor) 5 mg Q4H PRN IV hr>110 hold sbp<100; Start 08/10 at 14:30 Lorazepam (Ativan) 0.5 mg Q6H PRN IV ANXIETY Last administered on 08/11/16t 01: 30; Admin Dose 0.5 MG; Start 08/10/16 at 23:30 Cyanocobalamin 1000 mcg 1,000 mcg DAILY IM Last administered on 08/20/16 08:11 ; Admin Dose 1,000 MCG; Start 08/15/16 at 09:00; Stop 08/21/16 at 08:59 Ceftriaxone Sodium (Rocephin) 50 ml @ 100 mls/hr Q24H IVPB Last administered on 08/19/16 20:24; Admin Dose 100 MLS/HR; Start 08/14/16 at 20:00 Insulin Glargine (Lantus) 16 unit DAILY@20 SC Last administered on 08/19/16 20 :35; Admin Dose 16 UNIT; Start 08/16/16 at 20:00 Dexamethasone (Decadron) 4 mg Q8 PO Last administered on 08/20/16 14:02; Admin Dose 4 MG; Start 08/17/16 at 07:30 Insulin Human NPH (Humulin N) 8 unit Q8 SC Last administered on 08/20/16 14:12 ; Admin Dose 8 UNIT; Start 08/18/16 at 14:00 Zolpidem Tartrate (Ambien) 5 mg HS PRN PO INSOMNIA Last administered on 22:04; Admin Dose 5 MG; Start 08/18/16 at 22:00 Amiodarone HCl (Cordarone) 200 mg DAILY PO Last administered on 08/20/16 08:11 ; Admin Dose 200 MG; Start 08/20/16 at 09:00 Furosemide (Lasix) 20 mg DAILY PO Last administered on 08/20/16 08:12; Admin Dose 20 MG; Start 08/20/16 at 09:00 Pantoprazole (Protonix Tab) 40 mg DAILY@06 PO Last administered on 08/20/16 05 :09; Admin Dose 40 MG; Start 08/20/16 at 06:00 Metoprolol Tartrate (Lopressor) 12.5 mg BID PO ; Start 08/20/16 at 21:00 Benazepril HCl (Lotensin) 10 mg DAILY PO ; Start 08/21/16 at 09:00 Acetaminophen (Tylenol Supp) 650 mg Q6H PRN [place] FEVER; Start 08/20/16 at 15:00 Acetaminophen/ Hydrocodone Bitart ([place] (5/325)) 1 tab Q6H PRN PO PAIN LEVEL 7 -10 Last administered on 08/20/16t 14:02; Admin Dose 1 TAB; Start 08/20/16 at 13 :53 Acetaminophen (Tylenol Tab) 650 mg Q4H PRN PO PAIN AND OR ELEVATED TEMP; Start 08/20/16 at 13:54 KARLENE MUÑOZ MD Aug 20, 2016 19:20
--- NOTE | 2016-08-20 21:07 | PN ---
DATE: 08/20/2016 SUBJECTIVE: The patient has metastatic prostate cancer and initially also had hematuria because of an indwelling Montesinos catheter with balloon into the urethra. The patient at the present is comfortab le. He denies having any pain. He is urinating well, and according to the bladder scan, he is empt temo his bladder and does not need any catheterization. OBJECTIVE: VITAL SIGNS: Temperature is 97.4, blood pressure 159/75, pulse is 51, respirations 16. ABDOMEN: Soft. There is no abdominal tenderness. EXTREMITIES: There is no urinary retention. LABORATORY DATA: CBC shows a white count of 12.8, hemoglobin 11.3, hematocrit 33.9. The BUN is 13, creatinine 0.45, sodium 128, potassium 4.4, chloride 97, CO2 of 25. IMPRESSION: Metastatic prostate cancer. Patient has already received 1 injection of Lupron equival ent in his medications here, and he also has received his Zometa. He is comfortable. There is no s nikolay cord compression. He is, however, 2 weak to ambulate. He is able to move his extremities wit hout a problem, but when it comes to walking, he has difficulty ambulating. Physical therapy has be en requested for help in that regard. From a urological standpoint, right now he does not need anyt sabrina else. He did have the Lupron injection and he is followed up by Dr. Patricio Huang in oncology consultation. We could always follow him in the office for further care. Dictated By: PATRICIO GRANT/CHERRY Conf#: [id number] DID#: [id number]
[2016-08-20 21:19] VITALS: BP 161/74; RESP 18
[2016-08-20] MEDS: CEFTRIAXONE 1 GM/50 ML (PMX) 50 ML IVPB SCH (22:00)
[2016-08-20] MEDS: INSULIN GLARGINE [LANtus] 3 ML PEN SC SCH (22:02)
[2016-08-20] MEDS: ZOLPIDEM 5 MG TAB PO PRN (22:06)
[2016-08-20] MEDS: SODIUM CHLORIDE 1 GM TAB PO SCH (22:08)
[2016-08-20 22:45] VITALS: BP 135/99; PULSE 56
[2016-08-21] MEDS: NPH, HUMAN INSULIN ISOPHANE 3ML VIAL SC SCH ×3 (05:14→22:42)
[2016-08-21] MEDS: DEXAMETHASONE 4 MG TAB PO SCH ×3 (05:14→21:31)
[2016-08-21] MEDS: PANTOPRAZOLE (EC) 40 MG TAB PO SCH (05:14)
[2016-08-21 05:44] LABS: ADD SCAN DIFF NO
[2016-08-21 05:55] LABS: BASOPHILS % 0.1 % (0.0-2.0); EOSINOPHILS % 0.1 % (0.0-7.0); HEMATOCRIT 34.1 % (42.0-52.0); HEMOGLOBIN 11.6 g/dl (14.0-18.0); LYMPHOCYTES # 1.2 10^3/ul (0.8-2.9); LYMPHOCYTES % 6.8 % (15.0-51.0); MEAN CORPUSCULAR HEMOGLOBIN 29.8 pg (29.0-33.0); MEAN CORPUSCULAR VOLUME 87.7 fl (82.0-101.0); MEAN PLATELET VOLUME 9.3 fl (7.4-10.4); MONOCYTE # 0.8 10^3/ul (0.3-0.9); MONOCYTES % 4.7 % (0.0-11.0); NEUTROPHIL # 14.9 10^3/ul (1.6-7.5); NEUTROPHILS % 84.7 % (39.0-77.0); NUCLEATED RED BLOOD CELLS% 0.2 /100WBC (0.0-0.0); PLATELET COUNT 156 10^3/UL (140-415); RED BLOOD COUNT 3.89 10^6/ul (4.70-6.10); RED CELL DISTRIBUTION WIDTH 18.1 % (11.5-14.5); WHITE BLOOD COUNT 17.6 10^3/ul (4.8-10.8)
[2016-08-21 06:48] LABS: CALCIUM 7.2 mg/dl (8.4-10.2); CREATININE 0.49 mg/dl (0.61-1.24); POTASSIUM 4.5 mmol/L (3.5-5.1)
[2016-08-21 07:25] VITALS: BP 158/91; RESP 18
[2016-08-21] MEDS: Insulin NOVOLOG SS MILD Algorithm (SS with meals and bedtime) SC SCH ×4 (07:30→21:00)
[2016-08-21] MEDS: INSULIN ASPART [NOVOLOG] 3 ML PEN SC SCH ×3 (08:15→17:40)
[2016-08-21] MEDS: AMIODARONE 200 MG TAB PO SCH (08:16)
[2016-08-21] MEDS: FUROSEMIDE 20 MG TAB PO SCH (08:17)
[2016-08-21] MEDS: METOPROLOL 25 MG TAB PO SCH ×2 (08:17→21:33)
[2016-08-21] MEDS: SODIUM CHLORIDE 1 GM TAB PO SCH ×3 (08:17→21:30)
[2016-08-21] MEDS: BENAZEPRIL 10 MG TAB PO SCH (08:18)
--- NOTE | 2016-08-21 09:10 | CONS ---
Date/Time of Note Date/Time of Note DATE: 08/21/16 TIME: 09:08 Assessment/Plan Assessment/Plan Additional Assessment/Plan 1. Paroxysmal atrial flutter, remains in sinus rhythm at this time- rate controlled, off tele now 2. Abnl electrocardiogram, assess for acute coronary syndrome. -negative troponin x 3 3. Congestive heart failure by chest x-ray, diastolic, likely acute on chronic. -EF normal by echo this admit - better now 4. Hypertension under reasonable control with episodes of borderline hypotension - well rx, will follow 5. Altered mental state/encephalopathy. 6. Hyponatremia-improved s/p dose of tolvaptan 7. Urinary tract infection- on anti-bx 8. Anemia. 9. PLeural effusions bilateral - pulmonary team follows 10.Prostate ca-metastatic Consultation Date/Type/Reason Admit Date/Time Aug 09, 2016 at 23:11 Type of Consultation: NEPHROLOGY Referring Provider: CHANELLE PAUL MD 24 HR Interval Summary Free Text/Dictation NO acute events - comfortable - off tele now ROS: No fever, no chills, no nausea, no vomiting, no diarrhea/constipation No recent weight changes No chest pain, no PND, no orthopnea No dizziness, blurred vision No thirst, no heat or cold intolerance Exam/Review of Systems Vital Signs Vitals Vital Signs Date Time Temp Pulse Resp B/P Pulse Ox O2 Delivery O2 Flow Rate FiO2 08/21/16 07:25 97.8 54 18 158/91 96 Intake and Output 08/20/16 08/20/16 08/21/16 14:59 22:59 06:59 Intake Total 750 ml 320 ml Output Total 766 ml 400 ml 500 ml Balance -766 ml 350 ml -180 ml Exam General: WN/WD/NAD, AOx 1-2 HEENT: Unicetric/atraumatic/EOMI ( follow commands) NECK: JVD elevated, no thyromegaly Lymph: no lymphadenopathy HEART: regular with no S3, II/ systolic murmur at apex LUNGS: Coarse sounds ABD: soft, NT, ND, +BS : Intact Neuro: non focal SKIN: chronic changes EXT: trace edema Results Result Diagram: 08/21/16 0510 08/21/16 0510 Results 24 hrs Laboratory Tests Test 08/20/16 11:23 08/20/16 11:39 08/20/16 14:09 08/20/16 16:44 Bedside Glucose 149 214 137 Lab Scanned Report REFERENCE LAB Test 08/20/16 21:56 08/21/16 05:09 08/21/16 05:10 08/21/16 08:03 Bedside Glucose 105 89 71 White Blood Count 17.6 #H Red Blood Count 3.89 L Hemoglobin 11.6 L Hematocrit 34.1 L Mean Corpuscular Volume 87.7 Mean Corpuscular Hemoglobin 29.8 Mean Corpuscular Hemoglobin Concent 34.0 Red Cell Distribution Width 18.1 H Platelet Count 156 Mean Platelet Volume 9.3 Neutrophils % 84.7 H Lymphocytes % 6.8 L Monocytes % 4.7 Eosinophils % 0.1 Basophils % 0.1 Nucleated Red Blood Cells % 0.2 H Neutrophils # 14.9 H Lymphocytes # 1.2 Monocytes # 0.8 Eosinophils # 0.0 Basophils # 0.0 Nucleated Red Blood Cells # 0.0 Sodium Level 126 L Potassium Level 4.5 Chloride Level 96 L Carbon Dioxide Level 26 Anion Gap 9 Blood Urea Nitrogen 16 Creatinine 0.49 L Glucose Level 74 Calcium Level 7.2 L Medications Medications Current Medications Diltiazem HCl (Cardizem Iv) 5 mg Q6H PRN IV ELEVATED HEART RATE; Start 08/10/16 at 03:45 Miscellaneous Information 1 ea NOTE XX ; Start 08/10/16 at 03:45 Glucose (Glutose) 15 gm Q15M PRN PO DECREASED GLUCOSE; Start 08/10/16 at 03:45 Glucose (Glutose) 22.5 gm Q15M PRN PO DECREASED GLUCOSE; Start 08/10/16 at 03:45 Dextrose (D50w Syringe) 25 ml Q15M PRN IV DECREASED GLUCOSE; Start 08/10/16 at 03:45 Dextrose (D50w Syringe) 50 ml Q15M PRN IV DECREASED GLUCOSE; Start 08/10/16 at 03:45 Glucagon (Glucagen) 1 mg Q15M PRN IM DECREASED GLUCOSE; Start 08/10/16 at 03:45 Glucose (Glutose) 15 gm Q15M PRN BUCCAL DECREASED GLUCOSE; Start 08/10/16 at 03: 45 Miscellaneous Information (Pending Santyl Order For Wound Care) This patient melendez... PRN PRN XX WOUND CARE; Start 08/10/16 at 12:00 Metoprolol Tartrate (Lopressor) 5 mg Q4H PRN IV hr>110 hold sbp<100; Start 08/10 at 14:30 Lorazepam 0.5 mg 0.5 mg Q6H PRN IV ANXIETY Last administered on 08/11/16 01:30 ; Admin Dose 0.5 MG; Start 08/10/16 at 23:30 Ceftriaxone Sodium (Rocephin) 50 ml @ 100 mls/hr Q24H IVPB Last administered on 08/20/16 22:00; Admin Dose 100 MLS/HR; Start 08/14/16 at 20:00 Insulin Glargine (Lantus) 16 unit DAILY@20 SC Last administered on 08/20/16 22 :02; Admin Dose 16 UNIT; Start 08/16/16 at 20:00 Dexamethasone (Decadron) 4 mg Q8 PO Last administered on 08/21/16 05:14; Admin Dose 4 MG; Start 08/17/16 at 07:30 Insulin Human NPH (Humulin N) 8 unit Q8 SC Last administered on 08/21/16 05:14 ; Admin Dose 8 UNIT; Start 08/18/16 at 14:00 Zolpidem Tartrate (Ambien) 5 mg HS PRN PO INSOMNIA Last administered on 22:06; Admin Dose 5 MG; Start 08/18/16 at 22:00 Amiodarone HCl (Cordarone) 200 mg DAILY PO Last administered on 08/20/16 08:11 ; Admin Dose 200 MG; Start 08/20/16 at 09:00 Furosemide (Lasix) 20 mg DAILY PO Last administered on 08/21/16 08:17; Admin Dose 20 MG; Start 08/20/16 at 09:00 Pantoprazole (Protonix Tab) 40 mg DAILY@06 PO Last administered on 08/21/16 05 :14; Admin Dose 40 MG; Start 08/20/16 at 06:00 Metoprolol Tartrate (Lopressor) 12.5 mg BID PO ; Start 08/20/16 at 21:00 Benazepril HCl (Lotensin) 10 mg DAILY PO Last administered on 08/21/16 08:18; Admin Dose 10 MG; Start 08/21/16 at 09:00 Acetaminophen (Tylenol Supp) 650 mg Q6H PRN [place] FEVER; Start 08/20/16 at 15:00 Acetaminophen/ Hydrocodone Bitart ([place] (5/325)) 1 tab Q6H PRN PO PAIN LEVEL 7 -10 Last administered on 08/20/16 14:02; Admin Dose 1 TAB; Start 08/20/16 at 13 :53 Acetaminophen (Tylenol Tab) 650 mg Q4H PRN PO PAIN AND OR ELEVATED TEMP; Start 08/20/16 at 13:54 Sodium Chloride (Nacl) 1 gm TID PO Last administered on 08/21/16 08:17; Admin Dose 1 GM; Start 08/20/16 at 21:00 KIT FAYE MD Aug 21, 2016 09:09
[2016-08-21] MEDS: HYDROCODONE/APAP (5/325) TAB PO PRN (10:54)
--- NOTE | 2016-08-21 12:08 | PN ---
Date/Time of Note Date/Time of Note DATE: 08/21/16 TIME: 12:06 Assessment/Plan VTE Prophylaxis VTE Prophylaxis Intervention: SCD's Lines/Catheters IV [facility]from [facility] Saline Lock Urinary Cath still in place: No Assessment/Plan Chief Complaint/Hosp Course Patient remains hemodynamically stable, slightly increased hyponatremia. ASSESSMENT AND PLAN: - Metastatic prostate cancer. Dr. Sinclair is following in hematology consultation. Dr. Huang is following in urology consultation. On Lupron status post Zometa. Patient had no cord compression per evaluation by Dr. Coto, radiation oncology. - Coagulase-negative staph urinary bacteremia secondary to urinary tract infection. Continue ceftriaxone. - Acute metabolic encephalopathy, resolving. - Bilateral pleural effusions - Paroxysmal atrial flutter. Dr. Ragsdale is following and cardiology consultation. - Diastolic dysfunction congestive heart failure. Continue Lasix monitor electrolytes. - Hyponatremia secondary to SIADH, resolved. Dr. Howard is following patient in nephrology consultation. Continue intravenous fluids. - Diabetes mellitus. Continue Lantus and NovoLog. - Anemia, status post blood transfusion. Continue to monitor hemoglobin and hematocrit. - Hypertension. - Urinary retention. Continue to follow up urology recommendation. Case management for DC planning. Further recommendations based on clinical course. Plan of care discussed with Dr. Gregory. Problems: Exam/Review of Systems Vital Signs Vitals Vital Signs Date Time Temp Pulse Resp B/P Pulse Ox O2 Delivery O2 Flow Rate FiO2 08/21/16 07:25 97.8 54 18 158/91 96 Intake and Output 08/20/16 08/20/16 08/21/16 15:00 23:00 07:00 Intake Total 750 ml 320 ml Output Total 766 ml 400 ml 500 ml Balance -766 ml 350 ml -180 ml Exam Constitutional: alert, oriented Head: normocephalic Neck: supple Respiratory: diminished breath sounds Cardiovascular: nl pulses Gastrointestinal: non-tender, soft Genitourinary - Male: other (Montesinos catheter) Extremities: normal pulses Results Result Diagram: 08/21/16 0510 08/21/16 0510 Results 24 hrs Laboratory Tests Test 08/20/16 14:09 08/20/16 16:44 08/20/16 21:56 08/21/16 05:09 Bedside Glucose 214 137 105 89 Test 08/21/16 05:10 08/21/16 08:03 08/21/16 11:54 White Blood Count 17.6 #H Red Blood Count 3.89 L Hemoglobin 11.6 L Hematocrit 34.1 L Mean Corpuscular Volume 87.7 Mean Corpuscular Hemoglobin 29.8 Mean Corpuscular Hemoglobin Concent 34.0 Red Cell Distribution Width 18.1 H Platelet Count 156 Mean Platelet Volume 9.3 Neutrophils % 84.7 H Lymphocytes % 6.8 L Monocytes % 4.7 Eosinophils % 0.1 Basophils % 0.1 Nucleated Red Blood Cells % 0.2 H Neutrophils # 14.9 H Lymphocytes # 1.2 Monocytes # 0.8 Eosinophils # 0.0 Basophils # 0.0 Nucleated Red Blood Cells # 0.0 Sodium Level 126 L Potassium Level 4.5 Chloride Level 96 L Carbon Dioxide Level 26 Anion Gap 9 Blood Urea Nitrogen 16 Creatinine 0.49 L Glucose Level 74 Calcium Level 7.2 L Bedside Glucose 71 96 Medications Medications Current Medications Diltiazem HCl (Cardizem Iv) 5 mg Q6H PRN IV ELEVATED HEART RATE; Start 08/10/16 at 03:45 Miscellaneous Information 1 ea NOTE XX ; Start 08/10/16 at 03:45 Glucose (Glutose) 15 gm Q15M PRN PO DECREASED GLUCOSE; Start 08/10/16 at 03:45 Glucose (Glutose) 22.5 gm Q15M PRN PO DECREASED GLUCOSE; Start 08/10/16 at 03:45 Dextrose (D50w Syringe) 25 ml Q15M PRN IV DECREASED GLUCOSE; Start 08/10/16 at 03:45 Dextrose (D50w Syringe) 50 ml Q15M PRN IV DECREASED GLUCOSE; Start 08/10/16 at 03:45 Glucagon (Glucagen) 1 mg Q15M PRN IM DECREASED GLUCOSE; Start 08/10/16 at 03:45 Glucose (Glutose) 15 gm Q15M PRN BUCCAL DECREASED GLUCOSE; Start 08/10/16 at 03: 45 Miscellaneous Information (Pending Santyl Order For Wound Care) This patient melendez... PRN PRN XX WOUND CARE; Start 08/10/16 at 12:00 Metoprolol Tartrate (Lopressor) 5 mg Q4H PRN IV hr>110 hold sbp<100; Start 08/10 at 14:30 Lorazepam 0.5 mg 0.5 mg Q6H PRN IV ANXIETY Last administered on 08/11/16 01:30 ; Admin Dose 0.5 MG; Start 08/10/16 at 23:30 Ceftriaxone Sodium (Rocephin) 50 ml @ 100 mls/hr Q24H IVPB Last administered on 08/20/16 22:00; Admin Dose 100 MLS/HR; Start 08/14/16 at 20:00 Insulin Glargine (Lantus) 16 unit DAILY@20 SC Last administered on 08/20/16 22 :02; Admin Dose 16 UNIT; Start 08/16/16 at 20:00 Dexamethasone (Decadron) 4 mg Q8 PO Last administered on 08/21/16 05:14; Admin Dose 4 MG; Start 08/17/16 at 07:30 Insulin Human NPH (Humulin N) 8 unit Q8 SC Last administered on 08/21/16 05:14 ; Admin Dose 8 UNIT; Start 08/18/16 at 14:00 Zolpidem Tartrate (Ambien) 5 mg HS PRN PO INSOMNIA Last administered on 22:06; Admin Dose 5 MG; Start 08/18/16 at 22:00 Amiodarone HCl (Cordarone) 200 mg DAILY PO Last administered on 08/20/16 08:11 ; Admin Dose 200 MG; Start 08/20/16 at 09:00 Furosemide (Lasix) 20 mg DAILY PO Last administered on 08/21/16 08:17; Admin Dose 20 MG; Start 08/20/16 at 09:00 Pantoprazole (Protonix Tab) 40 mg DAILY@06 PO Last administered on 08/21/16 05 :14; Admin Dose 40 MG; Start 08/20/16 at 06:00 Metoprolol Tartrate (Lopressor) 12.5 mg BID PO ; Start 08/20/16 at 21:00 Benazepril HCl (Lotensin) 10 mg DAILY PO Last administered on 08/21/16 08:18; Admin Dose 10 MG; Start 08/21/16 at 09:00 Acetaminophen (Tylenol Supp) 650 mg Q6H PRN [place] FEVER; Start 08/20/16 at 15:00 Acetaminophen/ Hydrocodone Bitart ([place] (5/325)) 1 tab Q6H PRN PO PAIN LEVEL 7 -10 Last administered on 08/21/16 10:54; Admin Dose 1 TAB; Start 08/20/16 at 13 :53 Acetaminophen (Tylenol Tab) 650 mg Q4H PRN PO PAIN AND OR ELEVATED TEMP; Start 08/20/16 at 13:54 Sodium Chloride (Nacl) 1 gm TID PO Last administered on 08/21/16 08:17; Admin Dose 1 GM; Start 08/20/16 at 21:00 ROBERT CORRALES Aug 21, 2016 12:08
[2016-08-21] MEDS ORDERED: LORAZEPAM 0.5 MG TAB PO PRN (16:30)
[2016-08-21 20:11] VITALS: BP 111/59; RESP 18
--- NOTE | 2016-08-21 21:20 | CONS ---
Date/Time of Note Date/Time of Note DATE: 08/21/16 TIME: 21:18 Assessment/Plan Assessment/Plan Additional Assessment/Plan 1. Severe hyponatremia with a sodium 114 on admission. 2. Acute metabolic encephalopathy and fall at home secondary to severe hyponatremia. 3. Hypovolemic hyponatremia versus syndrome of inappropriate diuretic hormone. 4. Hypertension. 5. Hyperlipidemia. 6. History of prostate carcinoma. 7. History of diabetes mellitus. 8. History of bilateral knee arthritis. 9. Anemia, Iron deficiency,iron sat 16%, normal ferritin Plan: S/p 3 % saline,and S/p one dose of tolvaptan 15 gram PO x 1 dose before- Na dropped to 126 today- will give one dose of tolvaptan 15 mg po x 1 dose today on Na chloride table 1 gram PO TID Cr normal, K normal will continue to follow up Consultation Date/Type/Reason Admit Date/Time Aug 09, 2016 at 23:11 Type of Consultation: NEPHROLOGY Referring Provider: CHANELLE PAUL MD Exam/Review of Systems Vital Signs Vitals Vital Signs Date Time Temp Pulse Resp B/P Pulse Ox O2 Delivery O2 Flow Rate FiO2 08/21/16 20:11 97.0 65 18 111/59 97 Intake and Output 08/20/16 08/20/16 08/21/16 15:00 23:00 07:00 Intake Total 750 ml 320 ml Output Total 766 ml 400 ml 500 ml Balance -766 ml 350 ml -180 ml Results Result Diagram: 08/21/16 0510 08/21/16 0510 Results 24 hrs Laboratory Tests Test 08/20/16 21:56 08/21/16 05:09 08/21/16 05:10 08/21/16 08:03 Bedside Glucose 105 89 71 White Blood Count 17.6 #H Red Blood Count 3.89 L Hemoglobin 11.6 L Hematocrit 34.1 L Mean Corpuscular Volume 87.7 Mean Corpuscular Hemoglobin 29.8 Mean Corpuscular Hemoglobin Concent 34.0 Red Cell Distribution Width 18.1 H Platelet Count 156 Mean Platelet Volume 9.3 Neutrophils % 84.7 H Lymphocytes % 6.8 L Monocytes % 4.7 Eosinophils % 0.1 Basophils % 0.1 Nucleated Red Blood Cells % 0.2 H Neutrophils # 14.9 H Lymphocytes # 1.2 Monocytes # 0.8 Eosinophils # 0.0 Basophils # 0.0 Nucleated Red Blood Cells # 0.0 Sodium Level 126 L Potassium Level 4.5 Chloride Level 96 L Carbon Dioxide Level 26 Anion Gap 9 Blood Urea Nitrogen 16 Creatinine 0.49 L Glucose Level 74 Calcium Level 7.2 L Test 08/21/16 11:54 08/21/16 13:56 08/21/16 17:05 Bedside Glucose 96 87 77 Medications Medications Current Medications Diltiazem HCl (Cardizem Iv) 5 mg Q6H PRN IV ELEVATED HEART RATE; Start 08/10/16 at 03:45 Miscellaneous Information 1 ea NOTE XX ; Start 08/10/16 at 03:45 Glucose (Glutose) 15 gm Q15M PRN PO DECREASED GLUCOSE; Start 08/10/16 at 03:45 Glucose (Glutose) 22.5 gm Q15M PRN PO DECREASED GLUCOSE; Start 08/10/16 at 03:45 Dextrose (D50w Syringe) 25 ml Q15M PRN IV DECREASED GLUCOSE; Start 08/10/16 at 03:45 Dextrose (D50w Syringe) 50 ml Q15M PRN IV DECREASED GLUCOSE; Start 08/10/16 at 03:45 Glucagon (Glucagen) 1 mg Q15M PRN IM DECREASED GLUCOSE; Start 08/10/16 at 03:45 Glucose (Glutose) 15 gm Q15M PRN BUCCAL DECREASED GLUCOSE; Start 08/10/16 at 03: 45 [facility]isc[facility] This patient melendez... PRN PRN XX WOUND CARE; Start 08/10/16 at 12:00 Metoprolol Tartrate 5 mg 5 mg Q4H PRN IV hr>110 hold sbp<100; Start 08/10/16 at 14:30 Ceftriaxone Sodium (Rocephin) 50 ml @ 100 mls/hr Q24H IVPB Last administered on 08/20/16 22:00; Admin Dose 100 MLS/HR; Start 08/14/16 at 20:00 Insulin Glargine (Lantus) 16 unit DAILY@20 SC Last administered on 08/20/16 22 :02; Admin Dose 16 UNIT; Start 08/16/16 at 20:00 Dexamethasone (Decadron) 4 mg Q8 PO Last administered on 08/21/16 14:40; Admin Dose 4 MG; Start 08/17/16 at 07:30 Insulin Human NPH (Humulin N) 8 unit Q8 SC Last administered on 08/21/16 14:00 ; Admin Dose 8 UNIT; Start 08/18/16 at 14:00 Zolpidem Tartrate (Ambien) 5 mg HS PRN PO INSOMNIA Last administered on 22:06; Admin Dose 5 MG; Start 08/18/16 at 22:00 Amiodarone HCl (Cordarone) 200 mg DAILY PO Last administered on 08/20/16 08:11 ; Admin Dose 200 MG; Start 08/20/16 at 09:00 Furosemide (Lasix) 20 mg DAILY PO Last administered on 08/21/16 08:17; Admin Dose 20 MG; Start 08/20/16 at 09:00 Pantoprazole (Protonix Tab) 40 mg DAILY@06 PO Last administered on 08/21/16 05 :14; Admin Dose 40 MG; Start 08/20/16 at 06:00 Metoprolol Tartrate (Lopressor) 12.5 mg BID PO ; Start 08/20/16 at 21:00 Benazepril HCl (Lotensin) 10 mg DAILY PO Last administered on 08/21/16 08:18; Admin Dose 10 MG; Start 08/21/16 at 09:00 Acetaminophen (Tylenol Supp) 650 mg Q6H PRN [place] FEVER; Start 08/20/16 at 15:00 Acetaminophen/ Hydrocodone Bitart ([place] (5/325)) 1 tab Q6H PRN PO PAIN LEVEL 7 -10 Last administered on 08/21/16 10:54; Admin Dose 1 TAB; Start 08/20/16 at 13 :53 Acetaminophen (Tylenol Tab) 650 mg Q4H PRN PO PAIN AND OR ELEVATED TEMP; Start 08/20/16 at 13:54 Sodium Chloride (Nacl) 1 gm TID PO Last administered on 08/21/16 13:57; Admin Dose 1 GM; Start 08/20/16 at 21:00 Lorazepam (Ativan) 0.5 mg Q6H PRN PO ANXIETY; Start 08/21/16 at 16:30 KARLENE MUÑOZ MD Aug 21, 2016 21:19
[2016-08-21] MEDS: CEFTRIAXONE 1 GM/50 ML (PMX) 50 ML IVPB SCH (21:29)
[2016-08-21] MEDS: INSULIN GLARGINE [LANtus] 3 ML PEN SC SCH (21:30)
[2016-08-21] MEDS ORDERED: TOLVAPTAN 15 MG TABLET PO ONE (21:30)
[2016-08-21] MEDS: ZOLPIDEM 5 MG TAB PO PRN (21:31)
[2016-08-22] MEDS: PANTOPRAZOLE (EC) 40 MG TAB PO SCH (06:06)
[2016-08-22] MEDS: DEXAMETHASONE 4 MG TAB PO SCH ×3 (06:07→22:58)
[2016-08-22] MEDS: Insulin NOVOLOG SS MILD Algorithm (SS with meals and bedtime) SC SCH ×4 (07:30→21:00)
[2016-08-22] MEDS: DEXTROSE 10% 1,000 ML IV SCH (07:30)
[2016-08-22 07:31] VITALS: BP 131/79; RESP 18
[2016-08-22 08:14] VITALS: BP 153/66; RESP 18
[2016-08-22] MEDS: BENAZEPRIL 10 MG TAB PO SCH (08:20)
[2016-08-22] MEDS: SODIUM CHLORIDE 1 GM TAB PO SCH ×3 (08:20→21:00)
[2016-08-22] MEDS: METOPROLOL 25 MG TAB PO SCH ×2 (08:21→21:02)
[2016-08-22] MEDS: FUROSEMIDE 20 MG TAB PO SCH (08:23)
[2016-08-22] MEDS: AMIODARONE 200 MG TAB PO SCH (08:23)
[2016-08-22] MEDS: INSULIN ASPART [NOVOLOG] 3 ML PEN SC SCH ×3 (08:34→17:32)
--- NOTE | 2016-08-22 11:45 | PN ---
DATE: 08/22/2016 SUBJECTIVE: The abdominal and back pain. The patient has been feeling better. He now denies havin g any pain. He also initially did have hematuria and that most likely was traumatic from pulling on the catheter or traumatic catheterization. OBJECTIVE: GENERAL: The patient is afebrile. Temperature is 97.7. The pulse is 52, respiration 18, blood pre ssure 153/66. ABDOMEN: Soft. The bladder is not distended. EXTREMITIES: Reveal no edema. LABORATORY DATA: His last BUN is 16, creatinine 0.49, sodium 126, potassium 4.5, chloride 96, CO2 2 6. The CBC shows a white count of 17.6, hemoglobin 11.6, hematocrit 34.1. IMPRESSION: 1. The patient does have metastatic prostate cancer. He already has received an injection of Lupro n at the time of his admission. He received the leuprolide acetate 7.5 mg and that was given on 08/2016. He is voiding well on his own and the urine is now clear. He is also being followed by Dr Rebekah Sinclair who also gave him . For the time being, from a urological standpoint, we will just dino ch him and should he go home, then we will have the Lupron injection from his insurance and give it to him. Should he go to the prison, we will have to find out who will give him the injection then at the prison or the health plan will do that. PLAN: For now, as long as he is in the hospital we will also repeat a urine culture to make sure th at his leukocytosis is not because of urinary tract infection. Dictated By: ANGELA GRANT/CHERRY Conf#: [id number] DID#: [id number]
[2016-08-22] MEDS ORDERED: NPH, HUMAN INSULIN ISOPHANE 3ML VIAL SC SCH (14:00)
[2016-08-22] MEDS: NPH, HUMAN INSULIN ISOPHANE 3ML VIAL SC SCH ×2 (14:28→22:10)
--- NOTE | 2016-08-22 15:06 | CONS ---
Date/Time of Note Date/Time of Note DATE: 08/22/16 TIME: 15:02 Assessment/Plan Assessment/Plan Chief Complaint/Hosp Course IMPRESSION: 1. Paroxysmal atrial flutter, remains in sinus rhythm at this time 2. Abnl electrocardiogram, assess for acute coronary syndrome. -negative troponin x 3 3. Congestive heart failure by chest x-ray, diastolic, likely acute on chronic. -EF normal by echo this admit 4. Hypertension under reasonable control with episodes of borderline hypotension. 5. Altered mental state/encephalopathy. 6. Hyponatremia-improved s/p dose of tolvaptan 7. Urinary tract infection. 8. Anemia. 9. PLeural effusions bilateral 10.Prostate ca-metastatic Recc: -Tele -Continue BB/amio as tolerated only following hold parameters -Follow rhythm closely -Not on systemic anti-coag given anemia requiring transfusions. -Continue gentle lasix diuresis PO and follow na closely -Continue lupron/decadron -Continue ACEI Problems: Consultation Date/Type/Reason Admit Date/Time Aug 09, 2016 at 23:11 Initial Consult Date 08/12/16 Type of Consultation: Cardiology Reason for Consultation PAF Referring Provider: CHANELLE PAUL MD Exam/Review of Systems Vital Signs Vitals Vital Signs Date Time Temp Pulse Resp B/P Pulse Ox O2 Delivery O2 Flow Rate FiO2 08/22/16 08:14 97.7 52 18 153/66 98 Intake and Output 08/21/16 08/21/16 08/22/16 14:59 22:59 06:59 Intake Total 1030 ml 360 ml Output Total 500 ml Balance 1030 ml -140 ml Exam Review of Systems: CONSTITUTIONAL: No fevers, chills. PULMONARY: No sob CARDIOVASCULAR: No chest pain/palpitations GASTROINTESTINAL: No nausea/vomiting. GENITOURINARY: No hematuria/dysuria. MUSCULOSKELETAL: No myagias/arthalgias. PSYCHIATRIC: The patient denies depression. NEUROLOGIC: lethargic Constitutional: other (sleeping) Psych: no complaints Head: normocephalic ENMT: mucosa pink and moist Neck: jvd (9 cm water), supple Respiratory: diminished breath sounds (at bases/B) Cardiovascular: regular rate and rhythm Gastrointestinal: non-tender, soft Musculoskeletal: muscle tone (normal) Extremities: edema (none) Neurological: other (No focal deficits) Results Result Diagram: 08/21/16 0510 08/22/16 0552 Results 24 hrs Laboratory Tests Test 08/21/16 17:05 08/21/16 21:28 08/21/16 21:38 08/21/16 22:40 Bedside Glucose 77 138 121 Sodium Level 122 L Test 08/22/16 05:52 08/22/16 05:55 08/22/16 06:21 08/22/16 06:50 Sodium Level 131 L Glucose Level 40 #*L Bedside Glucose 42 *L 45 *L 69 L Test 08/22/16 08:11 08/22/16 08:29 08/22/16 12:02 08/22/16 14:25 Bedside Glucose 107 106 126 171 Medications Medications Current Medications Diltiazem HCl (Cardizem Iv) 5 mg Q6H PRN IV ELEVATED HEART RATE; Start 08/10/16 at 03:45 Miscellaneous Information 1 ea NOTE XX ; Start 08/10/16 at 03:45 Glucose (Glutose) 15 gm Q15M PRN PO DECREASED GLUCOSE; Start 08/10/16 at 03:45 Glucose (Glutose) 22.5 gm Q15M PRN PO DECREASED GLUCOSE; Start 08/10/16 at 03:45 Dextrose (D50w Syringe) 25 ml Q15M PRN IV DECREASED GLUCOSE; Start 08/10/16 at 03:45 Dextrose (D50w Syringe) 50 ml Q15M PRN IV DECREASED GLUCOSE; Start 08/10/16 at 03:45 Glucagon (Glucagen) 1 mg Q15M PRN IM DECREASED GLUCOSE; Start 08/10/16 at 03:45 Glucose (Glutose) 15 gm Q15M PRN BUCCAL DECREASED GLUCOSE; Start 08/10/16 at 03: 45 [facility] Information [facility] This patient melendez... PRN PRN XX WOUND CARE; Start 08/10/16 at 12:00 Metoprolol Tartrate 5 mg 5 mg Q4H PRN IV hr>110 hold sbp<100; Start 08/10/16 at 14:30 Ceftriaxone Sodium (Rocephin) 50 ml @ 100 mls/hr Q24H IVPB Last administered on 08/21/16t 21:29; Admin Dose 100 MLS/HR; Start 08/14/16 at 20:00 Zolpidem Tartrate (Ambien) 5 mg HS PRN PO INSOMNIA Last administered on 21:31; Admin Dose 5 MG; Start 08/18/16 at 22:00 Amiodarone HCl (Cordarone) 200 mg DAILY PO Last administered on 08/20/16 08:11 ; Admin Dose 200 MG; Start 08/20/16 at 09:00 Furosemide (Lasix) 20 mg DAILY PO Last administered on 08/22/16 08:23; Admin Dose 20 MG; Start 08/20/16 at 09:00 Pantoprazole (Protonix Tab) 40 mg DAILY@06 PO Last administered on 08/22/16 06 :06; Admin Dose 40 MG; Start 08/20/16 at 06:00 Metoprolol Tartrate (Lopressor) 12.5 mg BID PO Last administered on 08/21/16 21:33; Admin Dose 12.5 MG; Start 08/20/16 at 21:00 Benazepril HCl (Lotensin) 10 mg DAILY PO Last administered on 08/22/16 08:20; Admin Dose 10 MG; Start 08/21/16 at 09:00 Acetaminophen (Tylenol Supp) 650 mg Q6H PRN [place] FEVER; Start 08/20/16 at 15:00 Acetaminophen/ Hydrocodone Bitart ([place] (5/325)) 1 tab Q6H PRN PO PAIN LEVEL 7 -10 Last administered on 08/21/16 10:54; Admin Dose 1 TAB; Start 08/20/16 at 13 :53 Acetaminophen (Tylenol Tab) 650 mg Q4H PRN PO PAIN AND OR ELEVATED TEMP; Start 08/20/16 at 13:54 Sodium Chloride (Nacl) 1 gm TID PO Last administered on 08/22/16 14:26; Admin Dose 1 GM; Start 08/20/16 at 21:00 Lorazepam (Ativan) 0.5 mg Q6H PRN PO ANXIETY; Start 08/21/16 at 16:30 Insulin Glargine 12 unit 12 unit DAILY@20 SC ; Start 08/22/16 at 20:00 Dextrose (D10w) 1,000 ml @ 50 mls/hr Q20H IV ; Start 08/22/16 at 07:30 Dexamethasone (Decadron) 4 mg Q8 PO Last administered on 08/22/16 14:26; Admin Dose 4 MG; Start 08/22/16 at 14:00 Insulin Human NPH (Humulin N) 4 unit Q8 SC Last administered on 08/22/16 14:28 ; Admin Dose 4 UNIT; Start 08/22/16 at 14:00 ROSI ROBERTSON Aug 22, 2016 15:06
--- NOTE | 2016-08-22 17:34 | PN ---
Date/Time of Note Date/Time of Note DATE: 08/22/16 TIME: 17:27 Assessment/Plan VTE Prophylaxis VTE Prophylaxis Intervention: SCD's Lines/Catheters IV [facility] Saline Lock Urinary Cath still in place: No Assessment/Plan Chief Complaint/Hosp Course Patient remains hemodynamically stable denies pain, hypoglycemia in a.m., Lantus decreased to 12 units nightly, NPH insulin discontinued since patient is converted to p.o. Decadro, leukocytosis most likely due to steroids. ASSESSMENT AND PLAN: - Metastatic prostate cancer. Dr. Sinclair is following in hematology consultation. Dr. Huang is following in urology consultation. On Lupron status post Zometa. Patient had no cord compression per evaluation by Dr. Coto, radiation oncology. - Coagulase-negative staph urinary bacteremia secondary to urinary tract infection. Continue ceftriaxone. - Acute metabolic encephalopathy, resolving. - Bilateral pleural effusions - Paroxysmal atrial flutter. Dr. Ragsdale is following and cardiology consultation. - Diastolic dysfunction congestive heart failure. Continue Lasix monitor electrolytes. - Hyponatremia secondary to SIADH Dr. Howard is following patient in nephrology consultation. Status post tolvaptan yesterday. - Diabetes mellitus. Continue Lantus and NovoLog. - Anemia, status post blood transfusion. Continue to monitor hemoglobin and hematocrit. - Hypertension. - Urinary retention. Continue to follow up urology recommendation. Case management for DC planning. Further recommendations based on clinical course. Plan of care discussed with Dr. Gregory. Problems: Exam/Review of Systems Vital Signs Vitals Vital Signs Date Time Temp Pulse Resp B/P Pulse Ox O2 Delivery O2 Flow Rate FiO2 08/22/16 08:14 97.7 52 18 153/66 98 Intake and Output 08/21/16 08/21/16 08/22/16 14:59 22:59 06:59 Intake Total 1030 ml 360 ml Output Total 500 ml Balance 1030 ml -140 ml Exam Constitutional: alert, oriented Head: normocephalic Neck: supple Respiratory: diminished breath sounds Cardiovascular: nl pulses Gastrointestinal: non-tender, soft Genitourinary - Male: other (Montesinos catheter) Extremities: normal pulses Results Result Diagram: 08/21/16 0510 08/22/16 1430 Results 24 hrs Laboratory Tests Test 08/21/16 21:28 08/21/16 21:38 08/21/16 22:40 08/22/16 05:52 Bedside Glucose 138 121 Sodium Level 122 L 131 L Glucose Level 40 #*L Test 08/22/16 05:55 08/22/16 06:21 08/22/16 06:50 08/22/16 08:11 Bedside Glucose 42 *L 45 *L 69 L 107 Test 08/22/16 08:29 08/22/16 12:02 08/22/16 14:25 08/22/16 14:30 Bedside Glucose 106 126 171 Sodium Level 131 L Test 08/22/16 17:00 Bedside Glucose 125 Medications Medications Current Medications Diltiazem HCl (Cardizem Iv) 5 mg Q6H PRN IV ELEVATED HEART RATE; Start 08/10/16 at 03:45 Miscellaneous Information 1 ea NOTE XX ; Start 08/10/16 at 03:45 Glucose (Glutose) 15 gm Q15M PRN PO DECREASED GLUCOSE; Start 08/10/16 at 03:45 Glucose (Glutose) 22.5 gm Q15M PRN PO DECREASED GLUCOSE; Start 08/10/16 at 03:45 Dextrose (D50w Syringe) 25 ml Q15M PRN IV DECREASED GLUCOSE; Start 08/10/16 at 03:45 Dextrose (D50w Syringe) 50 ml Q15M PRN IV DECREASED GLUCOSE; Start 08/10/16 at 03:45 Glucagon (Glucagen) 1 mg Q15M PRN IM DECREASED GLUCOSE; Start 08/10/16 at 03:45 Glucose (Glutose) 15 gm Q15M PRN BUCCAL DECREASED GLUCOSE; Start 08/10/16 at 03: 45 Miscellaneous Information [facility] This patient melendez... PRN PRN XX WOUND CARE; Start 08/10/16 at 12:00 Metoprolol Tartrate 5 mg 5 mg Q4H PRN IV hr>110 hold sbp<100; Start 08/10/16 at 14:30 Ceftriaxone Sodium (Rocephin) 50 ml @ 100 mls/hr Q24H IVPB Last administered on 08/21/16 21:29; Admin Dose 100 MLS/HR; Start 08/14/16 at 20:00 Zolpidem Tartrate (Ambien) 5 mg HS PRN PO INSOMNIA Last administered on 21:31; Admin Dose 5 MG; Start 08/18/16 at 22:00 Amiodarone HCl (Cordarone) 200 mg DAILY PO Last administered on 08/20/16 08:11 ; Admin Dose 200 MG; Start 08/20/16 at 09:00 Furosemide (Lasix) 20 mg DAILY PO Last administered on 08/22/16 08:23; Admin Dose 20 MG; Start 08/20/16 at 09:00 Pantoprazole (Protonix Tab) 40 mg DAILY@06 PO Last administered on 08/22/16 06 :06; Admin Dose 40 MG; Start 08/20/16 at 06:00 Metoprolol Tartrate (Lopressor) 12.5 mg BID PO Last administered on 08/21/16 21:33; Admin Dose 12.5 MG; Start 08/20/16 at 21:00 Benazepril HCl (Lotensin) 10 mg DAILY PO Last administered on 08/22/16 08:20; Admin Dose 10 MG; Start 08/21/16 at 09:00 Acetaminophen (Tylenol Supp) 650 mg Q6H PRN [place] FEVER; Start 08/20/16 at 15:00 Acetaminophen/ Hydrocodone Bitart ([place] (5/325)) 1 tab Q6H PRN PO PAIN LEVEL 7 -10 Last administered on 08/21/16 10:54; Admin Dose 1 TAB; Start 08/20/16 at 13 :53 Acetaminophen (Tylenol Tab) 650 mg Q4H PRN PO PAIN AND OR ELEVATED TEMP; Start 08/20/16 at 13:54 Sodium Chloride (Nacl) 1 gm TID PO Last administered on 08/22/16 14:26; Admin Dose 1 GM; Start 08/20/16 at 21:00 Lorazepam (Ativan) 0.5 mg Q6H PRN PO ANXIETY; Start 08/21/16 at 16:30 Insulin Glargine 12 unit 12 unit DAILY@20 SC ; Start 08/22/16 at 20:00 Dextrose (D10w) 1,000 ml @ 50 mls/hr Q20H IV ; Start 08/22/16 at 07:30 Dexamethasone (Decadron) 4 mg Q8 PO Last administered on 08/22/16 14:26; Admin Dose 4 MG; Start 08/22/16 at 14:00 Insulin Human NPH (Humulin N) 4 unit Q8 SC Last administered on 08/22/16t 14:28 ; Admin Dose 4 UNIT; Start 08/22/16 at 14:00 ROBERT CORRALES Aug 22, 2016 17:34
--- NOTE | 2016-08-22 18:11 | CONS ---
Date/Time of Note Date/Time of Note DATE: 08/22/16 TIME: 18:09 Assessment/Plan Assessment/Plan Additional Assessment/Plan 1. Severe hyponatremia with a sodium 114 on admission. 2. Acute metabolic encephalopathy and fall at home secondary to severe hyponatremia. 3. Hypovolemic hyponatremia versus syndrome of inappropriate diuretic hormone. 4. Hypertension. 5. Hyperlipidemia. 6. History of prostate carcinoma. 7. History of diabetes mellitus. 8. History of bilateral knee arthritis. 9. Anemia, Iron deficiency,iron sat 16%, normal ferritin Plan: S/p 3 % saline,and S/p one dose of tolvaptan 15 gram PO x 1 dose before- another dose of tolvaptan 15mg on 08/21/16- Na improved to 131 on Na chloride table 1 gram PO TID Cr normal, K normal will continue to follow up Consultation Date/Type/Reason Admit Date/Time Aug 09, 2016 at 23:11 Type of Consultation: NEPHROLOGY Referring Provider: CHANELLE PAUL MD 24 HR Interval Summary Free Text/Dictation pt stable, no acute events overnight, BP stable Exam/Review of Systems Vital Signs Vitals Vital Signs Date Time Temp Pulse Resp B/P Pulse Ox O2 Delivery O2 Flow Rate FiO2 08/22/16 08:14 97.7 52 18 153/66 98 Intake and Output 08/21/16 08/21/16 08/22/16 15:00 23:00 07:00 Intake Total 1030 ml 360 ml Output Total 500 ml Balance 1030 ml -140 ml Results Result Diagram: 08/21/16 0510 08/22/16 1430 Results 24 hrs Laboratory Tests Test 08/21/16 21:28 08/21/16 21:38 08/21/16 22:40 08/22/16 05:52 Bedside Glucose 138 121 Sodium Level 122 L 131 L Glucose Level 40 #*L Test 08/22/16 05:55 08/22/16 06:21 08/22/16 06:50 08/22/16 08:11 Bedside Glucose 42 *L 45 *L 69 L 107 Test 08/22/16 08:29 08/22/16 12:02 08/22/16 14:25 08/22/16 14:30 Bedside Glucose 106 126 171 Sodium Level 131 L Test 08/22/16 17:00 Bedside Glucose 125 Medications Medications Current Medications Diltiazem HCl (Cardizem Iv) 5 mg Q6H PRN IV ELEVATED HEART RATE; Start 08/10/16 at 03:45 Miscellaneous Information 1 ea NOTE XX ; Start 08/10/16 at 03:45 Glucose (Glutose) 15 gm Q15M PRN PO DECREASED GLUCOSE; Start 08/10/16 at 03:45 Glucose (Glutose) 22.5 gm Q15M PRN PO DECREASED GLUCOSE; Start 08/10/16 at 03:45 Dextrose (D50w Syringe) 25 ml Q15M PRN IV DECREASED GLUCOSE; Start 08/10/16 at 03:45 Dextrose (D50w Syringe) 50 ml Q15M PRN IV DECREASED GLUCOSE; Start 08/10/16 at 03:45 Glucagon (Glucagen) 1 mg Q15M PRN IM DECREASED GLUCOSE; Start 08/10/16 at 03:45 Glucose (Glutose) 15 gm Q15M PRN BUCCAL DECREASED GLUCOSE; Start 08/10/16 at 03: 45 Miscellaneous Information (Pending [facility] Order For Wound Care) This patient melendez... PRN PRN XX WOUND CARE; Start 08/10/16 at 12:00 Metoprolol Tartrate 5 mg 5 mg Q4H PRN IV hr>110 hold sbp<100; Start 08/10/16 at 14:30 Ceftriaxone Sodium (Rocephin) 50 ml @ 100 mls/hr Q24H IVPB Last administered on 08/21/16 21:29; Admin Dose 100 MLS/HR; Start 08/14/16 at 20:00 Zolpidem Tartrate (Ambien) 5 mg HS PRN PO INSOMNIA Last administered on 21:31; Admin Dose 5 MG; Start 08/18/16 at 22:00 Amiodarone HCl (Cordarone) 200 mg DAILY PO Last administered on 08/20/16 08:11 ; Admin Dose 200 MG; Start 08/20/16 at 09:00 Furosemide (Lasix) 20 mg DAILY PO Last administered on 08/22/16 08:23; Admin Dose 20 MG; Start 08/20/16 at 09:00 Pantoprazole (Protonix Tab) 40 mg DAILY@06 PO Last administered on 08/22/16 06 :06; Admin Dose 40 MG; Start 08/20/16 at 06:00 Metoprolol Tartrate (Lopressor) 12.5 mg BID PO Last administered on 08/21/16 21:33; Admin Dose 12.5 MG; Start 08/20/16 at 21:00 Benazepril HCl (Lotensin) 10 mg DAILY PO Last administered on 08/22/16 08:20; Admin Dose 10 MG; Start 08/21/16 at 09:00 Acetaminophen (Tylenol Supp) 650 mg Q6H PRN [place] FEVER; Start 08/20/16 at 15:00 Acetaminophen/ Hydrocodone Bitart ([place] (5/325)) 1 tab Q6H PRN PO PAIN LEVEL 7 -10 Last administered on 08/21/16 10:54; Admin Dose 1 TAB; Start 08/20/16 at 13 :53 Acetaminophen (Tylenol Tab) 650 mg Q4H PRN PO PAIN AND OR ELEVATED TEMP; Start 08/20/16 at 13:54 Sodium Chloride (Nacl) 1 gm TID PO Last administered on 08/22/16 14:26; Admin Dose 1 GM; Start 08/20/16 at 21:00 Lorazepam (Ativan) 0.5 mg Q6H PRN PO ANXIETY; Start 08/21/16 at 16:30 Insulin Glargine 12 unit 12 unit DAILY@20 SC ; Start 08/22/16 at 20:00 Dextrose (D10w) 1,000 ml @ 50 mls/hr Q20H IV ; Start 08/22/16 at 07:30 Dexamethasone (Decadron) 4 mg Q8 PO Last administered on 08/22/16 14:26; Admin Dose 4 MG; Start 08/22/16 at 14:00 Insulin Human NPH (Humulin N) 4 unit Q8 SC Last administered on 08/22/16 14:28 ; Admin Dose 4 UNIT; Start 08/22/16 at 14:00 KARLENE MUÑOZ MD Aug 22, 2016 18:11
[2016-08-22] MEDS ORDERED: INSULIN GLARGINE [LANtus] 3 ML PEN SC SCH (20:00)
[2016-08-22] MEDS: CEFTRIAXONE 1 GM/50 ML (PMX) 50 ML IVPB SCH (20:01)
[2016-08-22 20:10] VITALS: BP 110/52; RESP 18
[2016-08-23] MEDS: DEXTROSE 10% 1,000 ML IV SCH ×2 (03:30→21:57)
[2016-08-23] MEDS: DEXAMETHASONE 4 MG TAB PO SCH ×3 (05:30→21:17)
[2016-08-23] MEDS: PANTOPRAZOLE (EC) 40 MG TAB PO SCH (05:30)
[2016-08-23] MEDS: NPH, HUMAN INSULIN ISOPHANE 3ML VIAL SC SCH ×3 (05:54→21:46)
[2016-08-23 07:17] LABS: ADD SCAN DIFF NO
[2016-08-23 07:24] LABS: BASOPHILS % 0.1 % (0.0-2.0); HEMATOCRIT 32.6 % (42.0-52.0); HEMOGLOBIN 10.5 g/dl (14.0-18.0); LYMPHOCYTES # 0.8 10^3/ul (0.8-2.9); LYMPHOCYTES % 5.2 % (15.0-51.0); MEAN CORPUSCULAR HEMOGLOBIN 29.2 pg (29.0-33.0); MEAN CORPUSCULAR HGB CONC 32.2 g/dl (32.0-37.0); MEAN CORPUSCULAR VOLUME 90.6 fl (82.0-101.0); MONOCYTE # 0.9 10^3/ul (0.3-0.9); MONOCYTES % 5.8 % (0.0-11.0); NEUTROPHIL # 13.3 10^3/ul (1.6-7.5); NEUTROPHILS % 87.7 % (39.0-77.0); NUCLEATED RED BLOOD CELLS% 0.1 /100WBC (0.0-0.0); PLATELET COUNT 128 10^3/UL (140-415); RED CELL DISTRIBUTION WIDTH 19.4 % (11.5-14.5); WHITE BLOOD COUNT 15.2 10^3/ul (4.8-10.8)
[2016-08-23] MEDS: Insulin NOVOLOG SS MILD Algorithm (SS with meals and bedtime) SC SCH ×4 (07:30→21:45)
[2016-08-23 08:00] VITALS: BP 115/58; RESP 19
[2016-08-23 08:05] LABS: CALCIUM 6.4 mg/dl (8.4-10.2); CREATININE 0.54 mg/dl (0.61-1.24); POTASSIUM 4.6 mmol/L (3.5-5.1)
[2016-08-23] MEDS: AMIODARONE 200 MG TAB PO SCH (09:00)
[2016-08-23] MEDS: METOPROLOL 25 MG TAB PO SCH ×2 (09:00→21:00)
[2016-08-23] MEDS: SODIUM CHLORIDE 1 GM TAB PO SCH ×3 (09:09→21:18)
[2016-08-23] MEDS: FUROSEMIDE 20 MG TAB PO SCH (09:09)
[2016-08-23] MEDS: BENAZEPRIL 10 MG TAB PO SCH (09:10)
[2016-08-23] MEDS: INSULIN ASPART [NOVOLOG] 3 ML PEN SC SCH ×3 (09:12→17:23)
--- NOTE | 2016-08-23 13:15 | CONS ---
Date/Time of Note Date/Time of Note DATE: 08/23/16 TIME: 13:14 Assessment/Plan Assessment/Plan Chief Complaint/Hosp Course IMPRESSION: 1. Paroxysmal atrial flutter, remains in sinus rhythm at this time 2. Abnl electrocardiogram, assess for acute coronary syndrome. -negative troponin x 3 3. Congestive heart failure by chest x-ray, diastolic, likely acute on chronic. -EF normal by echo this admit 4. Hypertension under reasonable control with episodes of borderline hypotension. 5. Altered mental state/encephalopathy. 6. Hyponatremia-improved s/p dose of tolvaptan 7. Urinary tract infection. 8. Anemia. 9. PLeural effusions bilateral 10.Prostate ca-metastatic Recc: -Tele -Continue BB/amio as tolerated only following hold parameters -Follow rhythm closely -Not on systemic anti-coag given anemia requiring transfusions. -Continue gentle lasix diuresis PO and follow na closely -Continue salt tabs -Continue lupron/decadron -Continue ACEI Problems: Consultation Date/Type/Reason Admit Date/Time Aug 09, 2016 at 23:11 Initial Consult Date 08/12/16 Type of Consultation: Cardiology Reason for Consultation PAFL Referring Provider: CHANELLE PAUL MD Exam/Review of Systems Vital Signs Vitals Vital Signs Date Time Temp Pulse Resp B/P Pulse Ox O2 Delivery O2 Flow Rate FiO2 08/23/16 08:00 97.8 58 19 115/58 97 Intake and Output 08/22/16 08/22/16 08/23/16 15:00 23:00 07:00 Intake Total 1320 ml 400 ml Output Total 1350 ml 590 ml Balance -30 ml -190 ml Exam Review of Systems: CONSTITUTIONAL: No fevers, chills. PULMONARY: No sob CARDIOVASCULAR: No chest pain/palpitations GASTROINTESTINAL: No nausea/vomiting. GENITOURINARY: No hematuria/dysuria. MUSCULOSKELETAL: No myagias/arthalgias. PSYCHIATRIC: The patient denies depression. NEUROLOGIC: No weakness Constitutional: alert Psych: no complaints Head: normocephalic ENMT: mucosa pink and moist Neck: jvd (9 cm water), supple Respiratory: diminished breath sounds (at bases/B) Cardiovascular: regular rate and rhythm Gastrointestinal: non-tender, soft Musculoskeletal: muscle tone (normal) Extremities: edema (none) Neurological: lethargic Results Result Diagram: 08/23/16 0548 08/23/16 0548 Results 24 hrs Laboratory Tests Test 08/22/16 14:25 08/22/16 14:30 08/22/16 17:00 08/22/16 20:01 Bedside Glucose 171 125 122 Sodium Level 131 L Test 08/22/16 22:08 08/23/16 05:48 08/23/16 05:52 08/23/16 08:04 Bedside Glucose 157 126 138 White Blood Count 15.2 H Red Blood Count 3.60 L Hemoglobin 10.5 L Hematocrit 32.6 L Mean Corpuscular Volume 90.6 Mean Corpuscular Hemoglobin 29.2 Mean Corpuscular Hemoglobin Concent 32.2 Red Cell Distribution Width 19.4 H Platelet Count 128 L Mean Platelet Volume 10.0 Neutrophils % 87.7 H Lymphocytes % 5.2 L Monocytes % 5.8 Eosinophils % 0.0 Basophils % 0.1 Nucleated Red Blood Cells % 0.1 H Neutrophils # 13.3 H Lymphocytes # 0.8 Monocytes # 0.9 Eosinophils # 0.0 Basophils # 0.0 Nucleated Red Blood Cells # 0.0 Sodium Level 136 Potassium Level 4.6 Chloride Level 106 Carbon Dioxide Level 24 Anion Gap 11 Blood Urea Nitrogen 20 Creatinine 0.54 L Glucose Level 103 # Calcium Level 6.4 L Test 08/23/16 12:14 Bedside Glucose 211 Medications Medications Current Medications Diltiazem HCl (Cardizem Iv) 5 mg Q6H PRN IV ELEVATED HEART RATE; Start 08/10/16 at 03:45 Miscellaneous Information 1 ea NOTE XX ; Start 08/10/16 at 03:45 Glucose (Glutose) 15 gm Q15M PRN PO DECREASED GLUCOSE; Start 08/10/16 at 03:45 Glucose (Glutose) 22.5 gm Q15M PRN PO DECREASED GLUCOSE; Start 08/10/16 at 03:45 Dextrose (D50w Syringe) 25 ml Q15M PRN IV DECREASED GLUCOSE; Start 08/10/16 at 03:45 Dextrose (D50w Syringe) 50 ml Q15M PRN IV DECREASED GLUCOSE; Start 08/10/16 at 03:45 Glucagon (Glucagen) 1 mg Q15M PRN IM DECREASED GLUCOSE; Start 08/10/16 at 03:45 Glucose (Glutose) 15 gm Q15M PRN BUCCAL DECREASED GLUCOSE; Start 08/10/16 at 03: 45 Miscellaneous Information (Pending [facility]yl Order For Wound Care) This patient melendez... PRN PRN XX WOUND CARE; Start 08/10/16 at 12:00 Metoprolol Tartrate 5 mg 5 mg Q4H PRN IV hr>110 hold sbp<100; Start 08/10/16 at 14:30 Ceftriaxone Sodium (Rocephin) 50 ml @ 100 mls/hr Q24H IVPB Last administered on 08/22/16 20:01; Admin Dose 100 MLS/HR; Start 08/14/16 at 20:00 Zolpidem Tartrate (Ambien) 5 mg HS PRN PO INSOMNIA Last administered on 21:31; Admin Dose 5 MG; Start 08/18/16 at 22:00 Amiodarone HCl (Cordarone) 200 mg DAILY PO Last administered on 08/20/16 08:11 ; Admin Dose 200 MG; Start 08/20/16 at 09:00 Furosemide (Lasix) 20 mg DAILY PO Last administered on 08/23/16 09:09; Admin Dose 20 MG; Start 08/20/16 at 09:00 Pantoprazole (Protonix Tab) 40 mg DAILY@06 PO Last administered on 08/23/16 05 :30; Admin Dose 40 MG; Start 08/20/16 at 06:00 Metoprolol Tartrate (Lopressor) 12.5 mg BID PO Last administered on 08/22/16 21:02; Admin Dose 12.5 MG; Start 08/20/16 at 21:00 Benazepril HCl (Lotensin) 10 mg DAILY PO Last administered on 08/23/16 09:10; Admin Dose 10 MG; Start 08/21/16 at 09:00 Acetaminophen (Tylenol Supp) 650 mg Q6H PRN [place] FEVER; Start 08/20/16 at 15:00 Acetaminophen/ Hydrocodone Bitart ([place] (5/325)) 1 tab Q6H PRN PO PAIN LEVEL 7 -10 Last administered on 08/21/16 10:54; Admin Dose 1 TAB; Start 08/20/16 at 13 :53 Acetaminophen (Tylenol Tab) 650 mg Q4H PRN PO PAIN AND OR ELEVATED TEMP; Start 08/20/16 at 13:54 Sodium Chloride (Nacl) 1 gm TID PO Last administered on 08/23/16 12:21; Admin Dose 1 GM; Start 08/20/16 at 21:00 Lorazepam (Ativan) 0.5 mg Q6H PRN PO ANXIETY; Start 08/21/16 at 16:30 Insulin Glargine 12 unit 12 unit DAILY@20 SC Last administered on 08/22/16 20: 03; Admin Dose 12 UNIT; Start 08/22/16 at 20:00 Dextrose (D10w) 1,000 ml @ 50 mls/hr Q20H IV ; Start 08/22/16 at 07:30 Dexamethasone (Decadron) 4 mg Q8 PO Last administered on 08/23/16 05:30; Admin Dose 4 MG; Start 08/22/16 at 14:00 Insulin Human NPH (Humulin N) 4 unit Q8 SC Last administered on 08/23/16 05:54 ; Admin Dose 4 UNIT; Start 08/22/16 at 14:00 ROSI ROBERTSON Aug 23, 2016 13:15
--- NOTE | 2016-08-23 17:23 | PN ---
Date/Time of Note Date/Time of Note DATE: 08/23/16 TIME: 17:23 Assessment/Plan Lines/Catheters IV Catheter Type (from Nrs): Saline Lock Urinary Cath still in place: No Subjective 24 Hr Interval Summary Respiratory: no complaints Cardiovascular: no complaints Gastrointestinal: no complaints Genitourinary: no complaints Musculoskeletal: no complaints Exam/Review of Systems Vital Signs Vitals Vital Signs Date Time Temp Pulse Resp B/P Pulse Ox O2 Delivery O2 Flow Rate FiO2 08/23/16 08:00 97.8 58 19 115/58 97 Intake and Output 08/22/16 08/22/16 08/23/16 15:00 23:00 07:00 Intake Total 1320 ml 400 ml Output Total 1350 ml 590 ml Balance -30 ml -190 ml Exam Constitutional: alert, well developed Respiratory: clear to auscultation, normal air movement Cardiovascular: nl pulses, regular rate and rhythm Gastrointestinal: non-tender, soft Musculoskeletal: nl extremities to inspection Extremities: normal pulses Neurological: nl mental status, nl speech Results Result Diagram: 08/23/16 0548 08/23/16 0548 Results 24 hrs Laboratory Tests Test 08/22/16 20:01 08/22/16 22:08 08/23/16 05:48 08/23/16 05:52 Bedside Glucose 122 157 126 White Blood Count 15.2 H Red Blood Count 3.60 L Hemoglobin 10.5 L Hematocrit 32.6 L Mean Corpuscular Volume 90.6 Mean Corpuscular Hemoglobin 29.2 Mean Corpuscular Hemoglobin Concent 32.2 Red Cell Distribution Width 19.4 H Platelet Count 128 L Mean Platelet Volume 10.0 Neutrophils % 87.7 H Lymphocytes % 5.2 L Monocytes % 5.8 Eosinophils % 0.0 Basophils % 0.1 Nucleated Red Blood Cells % 0.1 H Neutrophils # 13.3 H Lymphocytes # 0.8 Monocytes # 0.9 Eosinophils # 0.0 Basophils # 0.0 Nucleated Red Blood Cells # 0.0 Sodium Level 136 Potassium Level 4.6 Chloride Level 106 Carbon Dioxide Level 24 Anion Gap 11 Blood Urea Nitrogen 20 Creatinine 0.54 L Glucose Level 103 # Calcium Level 6.4 L Test 08/23/16 08:04 08/23/16 12:14 08/23/16 16:18 Bedside Glucose 138 211 414 *H Medications Medications Current Medications Diltiazem HCl (Cardizem Iv) 5 mg Q6H PRN IV ELEVATED HEART RATE; Start 08/10/16 at 03:45 Miscellaneous Information 1 ea NOTE XX ; Start 08/10/16 at 03:45 Glucose (Glutose) 15 gm Q15M PRN PO DECREASED GLUCOSE; Start 08/10/16 at 03:45 Glucose (Glutose) 22.5 gm Q15M PRN PO DECREASED GLUCOSE; Start 08/10/16 at 03:45 Dextrose (D50w Syringe) 25 ml Q15M PRN IV DECREASED GLUCOSE; Start 08/10/16 at 03:45 Dextrose (D50w Syringe) 50 ml Q15M PRN IV DECREASED GLUCOSE; Start 08/10/16 at 03:45 Glucagon (Glucagen) 1 mg Q15M PRN IM DECREASED GLUCOSE; Start 08/10/16 at 03:45 Glucose (Glutose) 15 gm Q15M PRN BUCCAL DECREASED GLUCOSE; Start 08/10/16 at 03: 45 Miscellaneous Information (Pending [facility] Order For Wound Care) This patient melendez... PRN PRN XX WOUND CARE; Start 08/10/16 at 12:00 Metoprolol Tartrate 5 mg 5 mg Q4H PRN IV hr>110 hold sbp<100; Start 08/10/16 at 14:30 Ceftriaxone Sodium (Rocephin) 50 ml @ 100 mls/hr Q24H IVPB Last administered on 08/22/16 20:01; Admin Dose 100 MLS/HR; Start 08/14/16 at 20:00 Zolpidem Tartrate (Ambien) 5 mg HS PRN PO INSOMNIA Last administered on 21:31; Admin Dose 5 MG; Start 08/18/16 at 22:00 Amiodarone HCl (Cordarone) 200 mg DAILY PO Last administered on 08/20/16 08:11 ; Admin Dose 200 MG; Start 08/20/16 at 09:00 Furosemide (Lasix) 20 mg DAILY PO Last administered on 08/23/16 09:09; Admin Dose 20 MG; Start 08/20/16 at 09:00 Pantoprazole (Protonix Tab) 40 mg DAILY@06 PO Last administered on 08/23/16 05 :30; Admin Dose 40 MG; Start 08/20/16 at 06:00 Metoprolol Tartrate (Lopressor) 12.5 mg BID PO Last administered on 08/22/16 21:02; Admin Dose 12.5 MG; Start 08/20/16 at 21:00 Benazepril HCl (Lotensin) 10 mg DAILY PO Last administered on 08/23/16 09:10; Admin Dose 10 MG; Start 08/21/16 at 09:00 Acetaminophen (Tylenol Supp) 650 mg Q6H PRN [place] FEVER; Start 08/20/16 at 15:00 Acetaminophen/ Hydrocodone Bitart ([place] (5/325)) 1 tab Q6H PRN PO PAIN LEVEL 7 -10 Last administered on 08/21/16 10:54; Admin Dose 1 TAB; Start 08/20/16 at 13 :53 Acetaminophen (Tylenol Tab) 650 mg Q4H PRN PO PAIN AND OR ELEVATED TEMP; Start 08/20/16 at 13:54 Sodium Chloride (Nacl) 1 gm TID PO Last administered on 08/23/16 12:21; Admin Dose 1 GM; Start 08/20/16 at 21:00 Lorazepam (Ativan) 0.5 mg Q6H PRN PO ANXIETY; Start 08/21/16 at 16:30 Insulin Glargine 12 unit 12 unit DAILY@20 SC Last administered on 08/22/16 20: 03; Admin Dose 12 UNIT; Start 08/22/16 at 20:00 Dextrose (D10w) 1,000 ml @ 50 mls/hr Q20H IV ; Start 08/22/16 at 07:30 Dexamethasone (Decadron) 4 mg Q8 PO Last administered on 08/23/16 16:03; Admin Dose 4 MG; Start 08/22/16 at 14:00 Insulin Human NPH (Humulin N) 4 unit Q8 SC Last administered on 08/23/16 16:10 ; Admin Dose 4 UNIT; Start 08/22/16 at 14:00 BIBIANA DUKE Aug 23, 2016 17:23
--- NOTE | 2016-08-23 17:32 | CONS ---
Date/Time of Note Date/Time of Note DATE: 08/23/16 TIME: 17:32 Assessment/Plan Assessment/Plan Additional Assessment/Plan 1. Severe hyponatremia with a sodium 114 on admission. 2. Acute metabolic encephalopathy and fall at home secondary to severe hyponatremia. 3. Hypovolemic hyponatremia versus syndrome of inappropriate diuretic hormone. 4. Hypertension. 5. Hyperlipidemia. 6. History of prostate carcinoma. 7. History of diabetes mellitus. 8. History of bilateral knee arthritis. 9. Anemia, Iron deficiency,iron sat 16%, normal ferritin Plan: S/p 3 % saline,and S/p one dose of tolvaptan 15 gram PO x 1 dose before- Na dropped to 126 today- will give one dose of tolvaptan 15 mg po x 1 dose today- now Na 136 on Na chloride table 1 gram PO TID Cr normal, K normal will continue to follow up Consultation Date/Type/Reason Admit Date/Time Aug 09, 2016 at 23:11 Type of Consultation: NEPHROLOGY Referring Provider: CHANELLE PAUL MD Exam/Review of Systems Vital Signs Vitals Vital Signs Date Time Temp Pulse Resp B/P Pulse Ox O2 Delivery O2 Flow Rate FiO2 08/23/16 08:00 97.8 58 19 115/58 97 Intake and Output 08/22/16 08/22/16 08/23/16 15:00 23:00 07:00 Intake Total 1320 ml 400 ml Output Total 1350 ml 590 ml Balance -30 ml -190 ml Results Result Diagram: 08/23/16 0548 08/23/16 0548 Results 24 hrs Laboratory Tests Test 08/22/16 20:01 08/22/16 22:08 08/23/16 05:48 08/23/16 05:52 Bedside Glucose 122 157 126 White Blood Count 15.2 H Red Blood Count 3.60 L Hemoglobin 10.5 L Hematocrit 32.6 L Mean Corpuscular Volume 90.6 Mean Corpuscular Hemoglobin 29.2 Mean Corpuscular Hemoglobin Concent 32.2 Red Cell Distribution Width 19.4 H Platelet Count 128 L Mean Platelet Volume 10.0 Neutrophils % 87.7 H Lymphocytes % 5.2 L Monocytes % 5.8 Eosinophils % 0.0 Basophils % 0.1 Nucleated Red Blood Cells % 0.1 H Neutrophils # 13.3 H Lymphocytes # 0.8 Monocytes # 0.9 Eosinophils # 0.0 Basophils # 0.0 Nucleated Red Blood Cells # 0.0 Sodium Level 136 Potassium Level 4.6 Chloride Level 106 Carbon Dioxide Level 24 Anion Gap 11 Blood Urea Nitrogen 20 Creatinine 0.54 L Glucose Level 103 # Calcium Level 6.4 L Test 08/23/16 08:04 08/23/16 12:14 08/23/16 16:18 08/23/16 17:16 Bedside Glucose 138 211 414 *H 360 H Medications Medications Current Medications Diltiazem HCl (Cardizem Iv) 5 mg Q6H PRN IV ELEVATED HEART RATE; Start 08/10/16 at 03:45 Miscellaneous Information 1 ea NOTE XX ; Start 08/10/16 at 03:45 Glucose (Glutose) 15 gm Q15M PRN PO DECREASED GLUCOSE; Start 08/10/16 at 03:45 Glucose (Glutose) 22.5 gm Q15M PRN PO DECREASED GLUCOSE; Start 08/10/16 at 03:45 Dextrose (D50w Syringe) 25 ml Q15M PRN IV DECREASED GLUCOSE; Start 08/10/16 at 03:45 Dextrose (D50w Syringe) 50 ml Q15M PRN IV DECREASED GLUCOSE; Start 08/10/16 at 03:45 Glucagon (Glucagen) 1 mg Q15M PRN IM DECREASED GLUCOSE; Start 08/10/16 at 03:45 Glucose (Glutose) 15 gm Q15M PRN BUCCAL DECREASED GLUCOSE; Start 08/10/16 at 03: 45 Miscellaneous Information (Pending Santyl Order For Wound Care) This patient melendez... PRN PRN XX WOUND CARE; Start 08/10/16 at 12:00 Metoprolol Tartrate 5 mg 5 mg Q4H PRN IV hr>110 hold sbp<100; Start 08/10/16 at 14:30 Ceftriaxone Sodium (Rocephin) 50 ml @ 100 mls/hr Q24H IVPB Last administered on 08/22/16 20:01; Admin Dose 100 MLS/HR; Start 08/14/16 at 20:00 Zolpidem Tartrate (Ambien) 5 mg HS PRN PO INSOMNIA Last administered on 21:31; Admin Dose 5 MG; Start 08/18/16 at 22:00 Amiodarone HCl (Cordarone) 200 mg DAILY PO Last administered on 08/20/16 08:11 ; Admin Dose 200 MG; Start 08/20/16 at 09:00 Furosemide (Lasix) 20 mg DAILY PO Last administered on 08/23/16 09:09; Admin Dose 20 MG; Start 08/20/16 at 09:00 Pantoprazole (Protonix Tab) 40 mg DAILY@06 PO Last administered on 08/23/16 05 :30; Admin Dose 40 MG; Start 08/20/16 at 06:00 Metoprolol Tartrate (Lopressor) 12.5 mg BID PO Last administered on 08/22/16 21:02; Admin Dose 12.5 MG; Start 08/20/16 at 21:00 Benazepril HCl (Lotensin) 10 mg DAILY PO Last administered on 08/23/16 09:10; Admin Dose 10 MG; Start 08/21/16 at 09:00 Acetaminophen (Tylenol Supp) 650 mg Q6H PRN [place] FEVER; Start 08/20/16 at 15:00 Acetaminophen/ Hydrocodone Bitart ([place] (5/325)) 1 tab Q6H PRN PO PAIN LEVEL 7 -10 Last administered on 08/21/16 10:54; Admin Dose 1 TAB; Start 08/20/16 at 13 :53 Acetaminophen (Tylenol Tab) 650 mg Q4H PRN PO PAIN AND OR ELEVATED TEMP; Start 08/20/16 at 13:54 Sodium Chloride (Nacl) 1 gm TID PO Last administered on 08/23/16 12:21; Admin Dose 1 GM; Start 08/20/16 at 21:00 Lorazepam 0.5 mg 0.5 mg Q6H PRN PO ANXIETY; Start 08/21/16 at 16:30 Dextrose (D10w) 1,000 ml @ 50 mls/hr Q20H IV ; Start 08/22/16 at 07:30 Dexamethasone (Decadron) 4 mg Q8 PO Last administered on 08/23/16 16:03; Admin Dose 4 MG; Start 08/22/16 at 14:00 Insulin Glargine (Lantus) 16 unit DAILY@20 SC ; Start 08/23/16 at 20:00 Insulin Human NPH (Humulin N) 6 unit Q8 SC ; Start 08/23/16 at 22:00 KARLENE MUÑOZ MD Aug 23, 2016 17:32
[2016-08-23 20:19] VITALS: BP 106/58; RESP 16
[2016-08-23] MEDS: CEFTRIAXONE 1 GM/50 ML (PMX) 50 ML IVPB SCH (21:15)
[2016-08-23] MEDS: INSULIN GLARGINE [LANtus] 3 ML PEN SC SCH (21:46)
[2016-08-23] MEDS: ZOLPIDEM 5 MG TAB PO PRN (21:57)
[2016-08-24] MEDS: PANTOPRAZOLE (EC) 40 MG TAB PO SCH (05:40)
[2016-08-24] MEDS: DEXAMETHASONE 4 MG TAB PO SCH ×3 (05:40→21:13)
[2016-08-24] MEDS: NPH, HUMAN INSULIN ISOPHANE 3ML VIAL SC SCH ×3 (05:42→21:13)
[2016-08-24 05:50] LABS: ADD SCAN DIFF NO
[2016-08-24 06:15] LABS: BASOPHILS % 0.1 % (0.0-2.0); HEMATOCRIT 30.9 % (42.0-52.0); LYMPHOCYTES # 0.7 10^3/ul (0.8-2.9); MEAN CORPUSCULAR HEMOGLOBIN 29.3 pg (29.0-33.0); MEAN CORPUSCULAR HGB CONC 32.4 g/dl (32.0-37.0); MEAN CORPUSCULAR VOLUME 90.6 fl (82.0-101.0); MONOCYTE # 0.9 10^3/ul (0.3-0.9); MONOCYTES % 5.1 % (0.0-11.0); NEUTROPHIL # 16.4 10^3/ul (1.6-7.5); NEUTROPHILS % 89.5 % (39.0-77.0); NUCLEATED RED BLOOD CELLS% 0.1 /100WBC (0.0-0.0); PLATELET COUNT 120 10^3/UL (140-415); RED BLOOD COUNT 3.41 10^6/ul (4.70-6.10); RED CELL DISTRIBUTION WIDTH 19.2 % (11.5-14.5); WHITE BLOOD COUNT 18.3 10^3/ul (4.8-10.8)
[2016-08-24 07:02] LABS: CREATININE 0.48 mg/dl (0.61-1.24); POTASSIUM 4.5 mmol/L (3.5-5.1)
[2016-08-24] MEDS: Insulin NOVOLOG SS MILD Algorithm (SS with meals and bedtime) SC SCH ×4 (07:30→21:12)
[2016-08-24] MEDS: SODIUM CHLORIDE 1 GM TAB PO SCH ×3 (08:35→21:13)
[2016-08-24] MEDS: AMIODARONE 200 MG TAB PO SCH (08:37)
[2016-08-24] MEDS: BENAZEPRIL 10 MG TAB PO SCH (08:37)
[2016-08-24] MEDS: INSULIN ASPART [NOVOLOG] 3 ML PEN SC SCH ×3 (08:37→17:14)
[2016-08-24] MEDS: FUROSEMIDE 20 MG TAB PO SCH (08:38)
[2016-08-24 08:51] VITALS: BP 140/63; RESP 17
[2016-08-24] MEDS: METOPROLOL 25 MG TAB PO SCH ×2 (09:00→21:14)
[2016-08-24 09:36] VITALS: BP 148/67; PULSE 57
--- NOTE | 2016-08-24 16:24 | PN ---
Date/Time of Note Date/Time of Note DATE: 08/24/16 TIME: 16:20 Assessment/Plan VTE Prophylaxis VTE Prophylaxis Intervention: SCD's Lines/Catheters IV Catheter Type (from [facility]): Saline Lock Urinary Cath still in place: No Assessment/Plan Chief Complaint/Hosp Course No acute events overnight, patient looks comfortable. ASSESSMENT AND PLAN: - Metastatic prostate cancer. Dr. Sinclair is following in hematology consultation. Dr. Huang is following in urology consultation. On Lupron status post Zometa. Patient had no cord compression per evaluation by Dr. Coto, radiation oncology. - Coagulase-negative staph urinary bacteremia secondary to urinary tract infection. Continue ceftriaxone. - Acute metabolic encephalopathy, resolved. - Hypertension. Continue metoprolol and benazepril. - Paroxysmal atrial flutter. Dr. Ragsdale is following and cardiology consultation. - Diastolic dysfunction congestive heart failure. Continue Lasix monitor electrolytes. - Hyponatremia secondary to SIADH Dr. Howard is following patient in nephrology consultation. - Diabetes mellitus. Continue Lantus and NovoLog. - Anemia, status post blood transfusion. Continue to monitor hemoglobin and hematocrit. - Urinary retention. Continue to follow up urology recommendation. Case management for DC planning. Further recommendations based on clinical course. Plan of care discussed with Dr. Gregory. Problems: Exam/Review of Systems Vital Signs Vitals Vital Signs Date Time Temp Pulse Resp B/P Pulse Ox O2 Delivery O2 Flow Rate FiO2 08/24/16 09:36 57 148/67 08/24/16 08:51 97.6 17 98 Intake and Output 08/23/16 08/23/16 08/24/16 14:59 22:59 06:59 Intake Total 1620 ml 440 ml Output Total 2270 ml 900 ml Balance -650 ml -460 ml Exam Constitutional: alert, oriented Head: normocephalic Neck: supple Respiratory: diminished breath sounds Cardiovascular: nl pulses Gastrointestinal: non-tender, soft Genitourinary - Male: other (Montesinos catheter) Extremities: normal pulses Results Result Diagram: 08/24/16 0450 08/24/16 0450 Results 24 hrs Laboratory Tests Test 08/23/16 17:16 08/23/16 19:06 08/23/16 21:14 08/24/16 01:52 Bedside Glucose 360 H 341 H 357 H 187 Test 08/24/16 04:50 08/24/16 05:39 08/24/16 08:02 08/24/16 11:48 White Blood Count 18.3 #H Red Blood Count 3.41 L Hemoglobin 10.0 L Hematocrit 30.9 L Mean Corpuscular Volume 90.6 Mean Corpuscular Hemoglobin 29.3 Mean Corpuscular Hemoglobin Concent 32.4 Red Cell Distribution Width 19.2 H Platelet Count 120 L Mean Platelet Volume 10.0 Neutrophils % 89.5 H Lymphocytes % 4.0 L Monocytes % 5.1 Eosinophils % 0.0 Basophils % 0.1 Nucleated Red Blood Cells % 0.1 H Neutrophils # 16.4 H Lymphocytes # 0.7 L Monocytes # 0.9 Eosinophils # 0.0 Basophils # 0.0 Nucleated Red Blood Cells # 0.0 Sodium Level 134 L Potassium Level 4.5 Chloride Level 105 Carbon Dioxide Level 27 Anion Gap 7 L Blood Urea Nitrogen 21 H Creatinine 0.48 L Glucose Level 99 Calcium Level 7.0 L Bedside Glucose 93 72 177 Test 08/24/16 14:48 Bedside Glucose 265 H Medications Medications Current Medications Diltiazem HCl (Cardizem Iv) 5 mg Q6H PRN IV ELEVATED HEART RATE; Start 08/10/16 at 03:45 Miscellaneous Information 1 ea NOTE XX ; Start 08/10/16 at 03:45 Glucose (Glutose) 15 gm Q15M PRN PO DECREASED GLUCOSE; Start 08/10/16 at 03:45 Glucose (Glutose) 22.5 gm Q15M PRN PO DECREASED GLUCOSE; Start 08/10/16 at 03:45 Dextrose (D50w Syringe) 25 ml Q15M PRN IV DECREASED GLUCOSE; Start 08/10/16 at 03:45 Dextrose (D50w Syringe) 50 ml Q15M PRN IV DECREASED GLUCOSE; Start 08/10/16 at 03:45 Glucagon (Glucagen) 1 mg Q15M PRN IM DECREASED GLUCOSE; Start 08/10/16 at 03:45 Glucose (Glutose) 15 gm Q15M PRN BUCCAL DECREASED GLUCOSE; Start 08/10/16 at 03: 45 [facility] This patient melendez... PRN PRN XX WOUND CARE; Start 08/10/16 at 12:00 Metoprolol Tartrate 5 mg 5 mg Q4H PRN IV hr>110 hold sbp<100; Start 08/10/16 at 14:30 Ceftriaxone Sodium (Rocephin) 50 ml @ 100 mls/hr Q24H IVPB Last administered on 08/23/16 21:15; Admin Dose 100 MLS/HR; Start 08/14/16 at 20:00 Zolpidem Tartrate (Ambien) 5 mg HS PRN PO INSOMNIA Last administered on 21:57; Admin Dose 5 MG; Start 08/18/16 at 22:00 Amiodarone HCl (Cordarone) 200 mg DAILY PO Last administered on 08/24/16 08:37 ; Admin Dose 200 MG; Start 08/20/16 at 09:00 Furosemide (Lasix) 20 mg DAILY PO Last administered on 08/24/16 08:38; Admin Dose 20 MG; Start 08/20/16 at 09:00 Pantoprazole (Protonix Tab) 40 mg DAILY@06 PO Last administered on 08/24/16 05 :40; Admin Dose 40 MG; Start 08/20/16 at 06:00 Metoprolol Tartrate (Lopressor) 12.5 mg BID PO Last administered on 08/22/16 21:02; Admin Dose 12.5 MG; Start 08/20/16 at 21:00 Benazepril HCl (Lotensin) 10 mg DAILY PO Last administered on 08/24/16 08:37; Admin Dose 10 MG; Start 08/21/16 at 09:00 Acetaminophen (Tylenol Supp) 650 mg Q6H PRN [place] FEVER; Start 08/20/16 at 15:00 Acetaminophen/ Hydrocodone Bitart ([place] (5/325)) 1 tab Q6H PRN PO PAIN LEVEL 7 -10 Last administered on 08/21/16 10:54; Admin Dose 1 TAB; Start 08/20/16 at 13 :53 Acetaminophen (Tylenol Tab) 650 mg Q4H PRN PO PAIN AND OR ELEVATED TEMP; Start 08/20/16 at 13:54 Sodium Chloride (Nacl) 1 gm TID PO Last administered on 08/24/16 12:08; Admin Dose 1 GM; Start 08/20/16 at 21:00 Lorazepam 0.5 mg 0.5 mg Q6H PRN PO ANXIETY; Start 08/21/16 at 16:30 Dextrose (D10w) 1,000 ml @ 50 mls/hr Q20H IV ; Start 08/22/16 at 07:30 Dexamethasone (Decadron) 4 mg Q8 PO Last administered on 08/24/16 14:49; Admin Dose 4 MG; Start 08/22/16 at 14:00 Insulin Glargine (Lantus) 16 unit DAILY@20 SC Last administered on 08/23/16 21 :46; Admin Dose 16 UNIT; Start 08/23/16 at 20:00 Insulin Human NPH (Humulin N) 6 unit Q8 SC Last administered on 08/24/16 14:49 ; Admin Dose 6 UNIT; Start 08/23/16 at 22:00 ROBERT CORRALES Aug 24, 2016 16:24
[2016-08-24] MEDS: DEXTROSE 10% 1,000 ML IV SCH (17:16)
--- NOTE | 2016-08-24 17:44 | CONS ---
Date/Time of Note Date/Time of Note DATE: 08/24/16 TIME: 17:42 Assessment/Plan Assessment/Plan Chief Complaint/Hosp Course IMPRESSION: 1. Paroxysmal atrial flutter, remains in sinus rhythm at this time 2. Abnl electrocardiogram, assess for acute coronary syndrome. -negative troponin x 3 3. Congestive heart failure by chest x-ray, diastolic, likely acute on chronic. -EF normal by echo this admit 4. Hypertension under reasonable control with episodes of borderline hypotension. 5. Altered mental state/encephalopathy. 6. Hyponatremia-improved s/p dose of tolvaptan on salt tabs 7. Urinary tract infection. 8. Anemia. 9. PLeural effusions bilateral 10.Prostate ca-metastatic Recc: -Tele -Continue BB/amio as tolerated only following hold parameters -Follow rhythm closely -Not on systemic anti-coag given anemia requiring transfusions. -Continue gentle lasix diuresis PO and follow na closely -Continue salt tabs -Continue lupron/decadron -Continue ACEI Problems: Consultation Date/Type/Reason Admit Date/Time Aug 09, 2016 at 23:11 Initial Consult Date 08/12/16 Type of Consultation: cardiology Reason for Consultation PAFL Referring Provider: CHANELLE PAUL MD Exam/Review of Systems Vital Signs Vitals Vital Signs Date Time Temp Pulse Resp B/P Pulse Ox O2 Delivery O2 Flow Rate FiO2 08/24/16 09:36 57 148/67 08/24/16 08:51 97.6 17 98 Intake and Output 08/23/16 08/23/16 08/24/16 15:00 23:00 07:00 Intake Total 1620 ml 440 ml Output Total 2270 ml 900 ml Balance -650 ml -460 ml Exam Review of Systems: CONSTITUTIONAL: No fevers, chills. PULMONARY: No sob CARDIOVASCULAR: No chest pain/palpitations GASTROINTESTINAL: No nausea/vomiting. GENITOURINARY: No hematuria/dysuria. MUSCULOSKELETAL: No myagias/arthalgias. PSYCHIATRIC: The patient denies depression. NEUROLOGIC: lethargic Constitutional: alert, oriented Psych: no complaints Head: normocephalic ENMT: mucosa pink and moist Neck: jvd, supple Respiratory: diminished breath sounds (at bases/B) Cardiovascular: regular rate and rhythm Gastrointestinal: non-tender, soft Musculoskeletal: muscle tone (normal) Extremities: other (none) Neurological: other (No focal deficits) Results Result Diagram: 08/24/16 0450 08/24/16 0450 Results 24 hrs Laboratory Tests Test 08/23/16 19:06 08/23/16 21:14 08/24/16 01:52 08/24/16 04:50 Bedside Glucose 341 H 357 H 187 White Blood Count 18.3 #H Red Blood Count 3.41 L Hemoglobin 10.0 L Hematocrit 30.9 L Mean Corpuscular Volume 90.6 Mean Corpuscular Hemoglobin 29.3 Mean Corpuscular Hemoglobin Concent 32.4 Red Cell Distribution Width 19.2 H Platelet Count 120 L Mean Platelet Volume 10.0 Neutrophils % 89.5 H Lymphocytes % 4.0 L Monocytes % 5.1 Eosinophils % 0.0 Basophils % 0.1 Nucleated Red Blood Cells % 0.1 H Neutrophils # 16.4 H Lymphocytes # 0.7 L Monocytes # 0.9 Eosinophils # 0.0 Basophils # 0.0 Nucleated Red Blood Cells # 0.0 Sodium Level 134 L Potassium Level 4.5 Chloride Level 105 Carbon Dioxide Level 27 Anion Gap 7 L Blood Urea Nitrogen 21 H Creatinine 0.48 L Glucose Level 99 Calcium Level 7.0 L Test 08/24/16 05:39 08/24/16 08:02 08/24/16 11:48 08/24/16 14:48 Bedside Glucose 93 72 177 265 H Test 08/24/16 17:12 Bedside Glucose 277 H Medications Medications Current Medications Diltiazem HCl (Cardizem Iv) 5 mg Q6H PRN IV ELEVATED HEART RATE; Start 08/10/16 at 03:45 Miscellaneous Information 1 ea NOTE XX ; Start 08/10/16 at 03:45 Glucose (Glutose) 15 gm Q15M PRN PO DECREASED GLUCOSE; Start 08/10/16 at 03:45 Glucose (Glutose) 22.5 gm Q15M PRN PO DECREASED GLUCOSE; Start 08/10/16 at 03:45 Dextrose (D50w Syringe) 25 ml Q15M PRN IV DECREASED GLUCOSE; Start 08/10/16 at 03:45 Dextrose (D50w Syringe) 50 ml Q15M PRN IV DECREASED GLUCOSE; Start 08/10/16 at 03:45 Glucagon (Glucagen) 1 mg Q15M PRN IM DECREASED GLUCOSE; Start 08/10/16 at 03:45 Glucose (Glutose) 15 gm Q15M PRN BUCCAL DECREASED GLUCOSE; Start 08/10/16 at 03: 45 Miscellaneous Information (Pending [facility] Order For Wound Care) This patient melendez... PRN PRN XX WOUND CARE; Start 08/10/16 at 12:00 Metoprolol Tartrate 5 mg 5 mg Q4H PRN IV hr>110 hold sbp<100; Start 08/10/16 at 14:30 Ceftriaxone Sodium (Rocephin) 50 ml @ 100 mls/hr Q24H IVPB Last administered on 08/23/16 21:15; Admin Dose 100 MLS/HR; Start 08/14/16 at 20:00 Zolpidem Tartrate (Ambien) 5 mg HS PRN PO INSOMNIA Last administered on 21:57; Admin Dose 5 MG; Start 08/18/16 at 22:00 Amiodarone HCl (Cordarone) 200 mg DAILY PO Last administered on 08/24/16 08:37 ; Admin Dose 200 MG; Start 08/20/16 at 09:00 Furosemide (Lasix) 20 mg DAILY PO Last administered on 08/24/16 08:38; Admin Dose 20 MG; Start 08/20/16 at 09:00 Pantoprazole (Protonix Tab) 40 mg DAILY@06 PO Last administered on 08/24/16 05 :40; Admin Dose 40 MG; Start 08/20/16 at 06:00 Metoprolol Tartrate (Lopressor) 12.5 mg BID PO Last administered on 08/22/16 21:02; Admin Dose 12.5 MG; Start 08/20/16 at 21:00 Benazepril HCl (Lotensin) 10 mg DAILY PO Last administered on 08/24/16 08:37; Admin Dose 10 MG; Start 08/21/16 at 09:00 Acetaminophen (Tylenol Supp) 650 mg Q6H PRN [place] FEVER; Start 08/20/16 at 15:00 Acetaminophen/ Hydrocodone Bitart ([place] (5/325)) 1 tab Q6H PRN PO PAIN LEVEL 7 -10 Last administered on 08/21/16 10:54; Admin Dose 1 TAB; Start 08/20/16 at 13 :53 Acetaminophen (Tylenol Tab) 650 mg Q4H PRN PO PAIN AND OR ELEVATED TEMP; Start 08/20/16 at 13:54 Sodium Chloride (Nacl) 1 gm TID PO Last administered on 08/24/16 12:08; Admin Dose 1 GM; Start 08/20/16 at 21:00 Lorazepam 0.5 mg 0.5 mg Q6H PRN PO ANXIETY; Start 08/21/16 at 16:30 Dextrose (D10w) 1,000 ml @ 50 mls/hr Q20H IV ; Start 08/22/16 at 07:30 Dexamethasone (Decadron) 4 mg Q8 PO Last administered on 08/24/16 14:49; Admin Dose 4 MG; Start 08/22/16 at 14:00 Insulin Glargine (Lantus) 16 unit DAILY@20 SC Last administered on 08/23/16 21 :46; Admin Dose 16 UNIT; Start 08/23/16 at 20:00 Insulin Human NPH (Humulin N) 6 unit Q8 SC Last administered on 08/24/16 14:49 ; Admin Dose 6 UNIT; Start 08/23/16 at 22:00 ROSI ROBERTSON Aug 24, 2016 17:44
--- NOTE | 2016-08-24 19:08 | CONS ---
Date/Time of Note Date/Time of Note DATE: 08/24/16 TIME: 19:08 Assessment/Plan Assessment/Plan Additional Assessment/Plan 1. Severe hyponatremia with a sodium 114 on admission. 2. Acute metabolic encephalopathy and fall at home secondary to severe hyponatremia. 3. Hypovolemic hyponatremia versus syndrome of inappropriate diuretic hormone. 4. Hypertension. 5. Hyperlipidemia. 6. History of prostate carcinoma. 7. History of diabetes mellitus. 8. History of bilateral knee arthritis. 9. Anemia, Iron deficiency,iron sat 16%, normal ferritin Plan: S/p 3 % saline,and S/p one dose of tolvaptan 15 gram PO x 1 dose before- another dose of tolvaptan 15mg on 08/21/16- Na improved to 134 on Na chloride table 1 gram PO TID Cr normal, K normal will continue to follow up Consultation Date/Type/Reason Admit Date/Time Aug 09, 2016 at 23:11 Type of Consultation: NEPHROLOGY Referring Provider: CHANELLE PAUL MD Exam/Review of Systems Vital Signs Vitals Vital Signs Date Time Temp Pulse Resp B/P Pulse Ox O2 Delivery O2 Flow Rate FiO2 08/24/16 09:36 57 148/67 08/24/16 08:51 97.6 17 98 Intake and Output 08/23/16 08/23/16 08/24/16 15:00 23:00 07:00 Intake Total 1620 ml 440 ml Output Total 2270 ml 900 ml Balance -650 ml -460 ml Results Result Diagram: 08/24/16 0450 08/24/16 0450 Results 24 hrs Laboratory Tests Test 08/23/16 21:14 08/24/16 01:52 08/24/16 04:50 08/24/16 05:39 Bedside Glucose 357 H 187 93 White Blood Count 18.3 #H Red Blood Count 3.41 L Hemoglobin 10.0 L Hematocrit 30.9 L Mean Corpuscular Volume 90.6 Mean Corpuscular Hemoglobin 29.3 Mean Corpuscular Hemoglobin Concent 32.4 Red Cell Distribution Width 19.2 H Platelet Count 120 L Mean Platelet Volume 10.0 Neutrophils % 89.5 H Lymphocytes % 4.0 L Monocytes % 5.1 Eosinophils % 0.0 Basophils % 0.1 Nucleated Red Blood Cells % 0.1 H Neutrophils # 16.4 H Lymphocytes # 0.7 L Monocytes # 0.9 Eosinophils # 0.0 Basophils # 0.0 Nucleated Red Blood Cells # 0.0 Sodium Level 134 L Potassium Level 4.5 Chloride Level 105 Carbon Dioxide Level 27 Anion Gap 7 L Blood Urea Nitrogen 21 H Creatinine 0.48 L Glucose Level 99 Calcium Level 7.0 L Test 08/24/16 08:02 08/24/16 11:48 08/24/16 14:48 08/24/16 17:12 Bedside Glucose 72 177 265 H 277 H Medications Medications Current Medications Diltiazem HCl (Cardizem Iv) 5 mg Q6H PRN IV ELEVATED HEART RATE; Start 08/10/16 at 03:45 Miscellaneous Information 1 ea NOTE XX ; Start 08/10/16 at 03:45 Glucose (Glutose) 15 gm Q15M PRN PO DECREASED GLUCOSE; Start 08/10/16 at 03:45 Glucose (Glutose) 22.5 gm Q15M PRN PO DECREASED GLUCOSE; Start 08/10/16 at 03:45 Dextrose (D50w Syringe) 25 ml Q15M PRN IV DECREASED GLUCOSE; Start 08/10/16 at 03:45 Dextrose (D50w Syringe) 50 ml Q15M PRN IV DECREASED GLUCOSE; Start 08/10/16 at 03:45 Glucagon (Glucagen) 1 mg Q15M PRN IM DECREASED GLUCOSE; Start 08/10/16 at 03:45 Glucose (Glutose) 15 gm Q15M PRN BUCCAL DECREASED GLUCOSE; Start 08/10/16 at 03: 45 [facility]isc[facility] This patient melendez... PRN PRN XX WOUND CARE; Start 08/10/16 at 12:00 Metoprolol Tartrate 5 mg 5 mg Q4H PRN IV hr>110 hold sbp<100; Start 08/10/16 at 14:30 Ceftriaxone Sodium (Rocephin) 50 ml @ 100 mls/hr Q24H IVPB Last administered on 08/23/16 21:15; Admin Dose 100 MLS/HR; Start 08/14/16 at 20:00 Zolpidem Tartrate (Ambien) 5 mg HS PRN PO INSOMNIA Last administered on 21:57; Admin Dose 5 MG; Start 08/18/16 at 22:00 Amiodarone HCl (Cordarone) 200 mg DAILY PO Last administered on 08/24/16 08:37 ; Admin Dose 200 MG; Start 08/20/16 at 09:00 Furosemide (Lasix) 20 mg DAILY PO Last administered on 08/24/16 08:38; Admin Dose 20 MG; Start 08/20/16 at 09:00 Pantoprazole (Protonix Tab) 40 mg DAILY@06 PO Last administered on 08/24/16 05 :40; Admin Dose 40 MG; Start 08/20/16 at 06:00 Metoprolol Tartrate (Lopressor) 12.5 mg BID PO Last administered on 08/22/16 21:02; Admin Dose 12.5 MG; Start 08/20/16 at 21:00 Benazepril HCl (Lotensin) 10 mg DAILY PO Last administered on 08/24/16 08:37; Admin Dose 10 MG; Start 08/21/16 at 09:00 Acetaminophen (Tylenol Supp) 650 mg Q6H PRN [place] FEVER; Start 08/20/16 at 15:00 Acetaminophen/ Hydrocodone Bitart ([place] (5/325)) 1 tab Q6H PRN PO PAIN LEVEL 7 -10 Last administered on 08/21/16 10:54; Admin Dose 1 TAB; Start 08/20/16 at 13 :53 Acetaminophen (Tylenol Tab) 650 mg Q4H PRN PO PAIN AND OR ELEVATED TEMP; Start 08/20/16 at 13:54 Sodium Chloride (Nacl) 1 gm TID PO Last administered on 08/24/16 12:08; Admin Dose 1 GM; Start 08/20/16 at 21:00 Lorazepam 0.5 mg 0.5 mg Q6H PRN PO ANXIETY; Start 08/21/16 at 16:30 Dextrose (D10w) 1,000 ml @ 50 mls/hr Q20H IV ; Start 08/22/16 at 07:30 Dexamethasone (Decadron) 4 mg Q8 PO Last administered on 08/24/16 14:49; Admin Dose 4 MG; Start 08/22/16 at 14:00 Insulin Glargine (Lantus) 16 unit DAILY@20 SC Last administered on 08/23/16 21 :46; Admin Dose 16 UNIT; Start 08/23/16 at 20:00 Insulin Human NPH (Humulin N) 6 unit Q8 SC Last administered on 08/24/16t 14:49 ; Admin Dose 6 UNIT; Start 08/23/16 at 22:00 KARLENE MUÑOZ MD Aug 24, 2016 19:08
[2016-08-24 20:32] VITALS: BP 125/57; RESP 16
[2016-08-24] MEDS: INSULIN GLARGINE [LANtus] 3 ML PEN SC SCH (21:11)
[2016-08-24] MEDS: CEFTRIAXONE 1 GM/50 ML (PMX) 50 ML IVPB SCH (21:11)
[2016-08-25] MEDS: HYDROCODONE/APAP (5/325) TAB PO PRN (00:20)
[2016-08-25] MEDS: DEXAMETHASONE 4 MG TAB PO SCH ×3 (05:28→22:00)
[2016-08-25] MEDS: NPH, HUMAN INSULIN ISOPHANE 3ML VIAL SC SCH ×2 (05:29→14:01)
[2016-08-25] MEDS: PANTOPRAZOLE (EC) 40 MG TAB PO SCH (05:29)
[2016-08-25 06:04] LABS: ADD SCAN DIFF NO
--- NOTE | 2016-08-25 06:07 | PN ---
DATE: 08/25/2016 TYPE OF SUBJECTIVE: Patient states that he is feeling better and he denies having any abdominal or back pain today. He does have metastatic prostate cancer and was having difficulty ambulating, how ever, with the help of physical therapy yesterday, he was able to walk around. OBJECTIVE: VITAL SIGNS: Temperature is 97.6, blood pressure 148/67. The pulse is 57, respirations 17. ABDOMEN: Soft. There is no abdominal mass palpable. The patient is voiding and he states that he voids small amounts, but the urine is clear and the bladder is not distended, and there is no suprap ubic tenderness. LABORATORY DATA: His CBC shows a white count of 18.3, hemoglobin is 10.0, hematocrit is 30.9. The BUN is 21, creatinine 0.48, sodium 134, potassium 4.5, chloride 105, CO2 27. The urine culture has no growth after 48 hours. IMPRESSION: Metastatic prostate cancer. Patient initially also did have hematuria that was because the catheter that he was not all the way inside the bladder. Since then, the catheter has been rem christi and the patient has been voiding. The urine is clear and he is responding to the treatment. Barbara anderson also did ambulate yesterday and hopefully he will be able to ambulate today. He already received an injection of Lupron Depot and he also had Zometa given. PLAN: Will plan to continue this treatment after his discharge, and whether he goes home or to a [facility] nursing facility. Dictated By: ANGELA GRANT/CHERRY Conf#: [id number] DID#: [id number]
[2016-08-25 06:19] LABS: BASOPHILS % 0.1 % (0.0-2.0); HEMATOCRIT 32.9 % (42.0-52.0); HEMOGLOBIN 10.7 g/dl (14.0-18.0); LYMPHOCYTES # 0.8 10^3/ul (0.8-2.9); LYMPHOCYTES % 4.5 % (15.0-51.0); MEAN CORPUSCULAR HEMOGLOBIN 29.6 pg (29.0-33.0); MEAN CORPUSCULAR HGB CONC 32.5 g/dl (32.0-37.0); MEAN CORPUSCULAR VOLUME 91.1 fl (82.0-101.0); MEAN PLATELET VOLUME 10.2 fl (7.4-10.4); MONOCYTE # 0.7 10^3/ul (0.3-0.9); MONOCYTES % 3.9 % (0.0-11.0); NEUTROPHIL # 15.1 10^3/ul (1.6-7.5); NEUTROPHILS % 90.4 % (39.0-77.0); NUCLEATED RED BLOOD CELLS% 0.1 /100WBC (0.0-0.0); PLATELET COUNT 137 10^3/UL (140-415); RED BLOOD COUNT 3.61 10^6/ul (4.70-6.10); RED CELL DISTRIBUTION WIDTH 19.2 % (11.5-14.5); WHITE BLOOD COUNT 16.8 10^3/ul (4.8-10.8)
[2016-08-25 06:49] LABS: CALCIUM 7.2 mg/dl (8.4-10.2); CREATININE 0.58 mg/dl (0.61-1.24); POTASSIUM 5.6 mmol/L (3.5-5.1)
[2016-08-25 07:30] VITALS: BP 143/63; RESP 18
[2016-08-25] MEDS: Insulin NOVOLOG SS MILD Algorithm (SS with meals and bedtime) SC SCH ×4 (07:30→21:32)
[2016-08-25] MEDS: INSULIN ASPART [NOVOLOG] 3 ML PEN SC SCH ×3 (08:03→18:06)
[2016-08-25] MEDS: FUROSEMIDE 20 MG TAB PO SCH (09:26)
[2016-08-25] MEDS: AMIODARONE 200 MG TAB PO SCH (09:26)
[2016-08-25] MEDS: METOPROLOL 25 MG TAB PO SCH ×2 (09:26→21:00)
[2016-08-25] MEDS: SODIUM CHLORIDE 1 GM TAB PO SCH ×3 (09:26→21:28)
[2016-08-25] MEDS ORDERED: NA POLYST SULFON 15 GM/60 ML BTL PO ONE ×2 (09:30→15:00)
--- NOTE | 2016-08-25 11:43 | PN ---
Date/Time of Note Date/Time of Note DATE: 08/25/16 TIME: 11:42 Assessment/Plan VTE Prophylaxis VTE Prophylaxis Intervention: other Lines/Catheters [facility] Urinary Cath still in place: No Assessment/Plan Assessment/Plan - Hyperkalemia- kayexalate, am BMP - Metastatic prostate cancer. Dr. Sinclair is following in hematology consultation. Dr. Huang is following in urology consultation. On Lupron status post Zometa. Patient had no cord compression per evaluation by Dr. Coto, radiation oncology. - Coagulase-negative staph urinary bacteremia secondary to urinary tract infection. Continue ceftriaxone. - Acute metabolic encephalopathy, resolved. - Hypertension. Continue metoprolol and benazepril. - Paroxysmal atrial flutter. Dr. Ragsdale is following and cardiology consultation. - Diastolic dysfunction congestive heart failure. Continue Lasix monitor electrolytes. - Hyponatremia secondary to SIADH Dr. Howard is following patient in nephrology consultation. - Diabetes mellitus. Continue Lantus and NovoLog. - Anemia, status post blood transfusion. Continue to monitor hemoglobin and hematocrit. - Urinary retention. Continue to follow up urology recommendation. Case management for DC planning. Further recommendations based on clinical course. Plan of care discussed with Dr. Gregory. Subjective 24 Hr Interval Summary Free Text/Dictation nad, feels better, no hematuria, family at bed side- all qs answered. Respiratory: cough, no complaints Gastrointestinal: no complaints Genitourinary: no complaints Musculoskeletal: no complaints Exam/Review of Systems Vital Signs Vitals Vital Signs Date Time Temp Pulse Resp B/P Pulse Ox O2 Delivery O2 Flow Rate FiO2 08/25/16 07:30 98.8 56 18 143/63 96 Intake and Output 08/24/16 08/24/16 08/25/16 15:00 23:00 07:00 Intake Total 790 ml 480 ml Output Total 1220 ml 700 ml Balance -430 ml -220 ml Exam Constitutional: alert, oriented, well developed Respiratory: clear to auscultation, normal air movement Cardiovascular: nl pulses, regular rate and rhythm Gastrointestinal: non-tender, soft Musculoskeletal: nl extremities to inspection Extremities: normal pulses Neurological: nl mental status, nl speech Results Result Diagram: 08/25/16 0433 08/25/16 0433 Results 24 hrs Laboratory Tests Test 08/24/16 11:48 08/24/16 14:48 08/24/16 17:12 08/24/16 21:08 Bedside Glucose 177 265 H 277 H 338 H Test 08/25/16 01:51 08/25/16 04:33 08/25/16 05:25 08/25/16 08:00 Bedside Glucose 199 111 85 White Blood Count 16.8 H Red Blood Count 3.61 L Hemoglobin 10.7 L Hematocrit 32.9 L Mean Corpuscular Volume 91.1 Mean Corpuscular Hemoglobin 29.6 Mean Corpuscular Hemoglobin Concent 32.5 Red Cell Distribution Width 19.2 H Platelet Count 137 L Mean Platelet Volume 10.2 Neutrophils % 90.4 H Lymphocytes % 4.5 L Monocytes % 3.9 Eosinophils % 0.0 Basophils % 0.1 Nucleated Red Blood Cells % 0.1 H Neutrophils # 15.1 H Lymphocytes # 0.8 Monocytes # 0.7 Eosinophils # 0.0 Basophils # 0.0 Nucleated Red Blood Cells # 0.0 Sodium Level 130 L Potassium Level 5.6 H Chloride Level 98 Carbon Dioxide Level 30 Anion Gap 8 Blood Urea Nitrogen 20 Creatinine 0.58 L Glucose Level 115 Calcium Level 7.2 L Medications Medications Current Medications Diltiazem HCl (Cardizem Iv) 5 mg Q6H PRN IV ELEVATED HEART RATE; Start 08/10/16 at 03:45 Miscellaneous Information 1 ea NOTE XX ; Start 08/10/16 at 03:45 Glucose (Glutose) 15 gm Q15M PRN PO DECREASED GLUCOSE; Start 08/10/16 at 03:45 Glucose (Glutose) 22.5 gm Q15M PRN PO DECREASED GLUCOSE; Start 08/10/16 at 03:45 Dextrose (D50w Syringe) 25 ml Q15M PRN IV DECREASED GLUCOSE; Start 08/10/16 at 03:45 Dextrose (D50w Syringe) 50 ml Q15M PRN IV DECREASED GLUCOSE; Start 08/10/16 at 03:45 Glucagon (Glucagen) 1 mg Q15M PRN IM DECREASED GLUCOSE; Start 08/10/16 at 03:45 Glucose (Glutose) 15 gm Q15M PRN BUCCAL DECREASED GLUCOSE; Start 08/10/16 at 03: 45 Miscellaneous Information [facility] This patient melendez... PRN PRN XX WOUND CARE; Start 08/10/16 at 12:00 Metoprolol Tartrate 5 mg 5 mg Q4H PRN IV hr>110 hold sbp<100; Start 08/10/16 at 14:30 Ceftriaxone Sodium (Rocephin) 50 ml @ 100 mls/hr Q24H IVPB Last administered on 08/24/16 21:11; Admin Dose 100 MLS/HR; Start 08/14/16 at 20:00 Zolpidem Tartrate (Ambien) 5 mg HS PRN PO INSOMNIA Last administered on 21:57; Admin Dose 5 MG; Start 08/18/16 at 22:00 Amiodarone HCl (Cordarone) 200 mg DAILY PO Last administered on 08/25/16 09:26 ; Admin Dose 200 MG; Start 08/20/16 at 09:00 Furosemide (Lasix) 20 mg DAILY PO Last administered on 08/25/16 09:26; Admin Dose 20 MG; Start 08/20/16 at 09:00 Pantoprazole (Protonix Tab) 40 mg DAILY@06 PO Last administered on 08/25/16 05 :29; Admin Dose 40 MG; Start 08/20/16 at 06:00 Metoprolol Tartrate (Lopressor) 12.5 mg BID PO Last administered on 08/25/16 09:26; Admin Dose 12.5 MG; Start 08/20/16 at 21:00 Acetaminophen (Tylenol Supp) 650 mg Q6H PRN [place] FEVER; Start 08/20/16 at 15:00 Acetaminophen/ Hydrocodone Bitart ([place] (5/325)) 1 tab Q6H PRN PO PAIN LEVEL 7 -10 Last administered on 08/25/16 00:20; Admin Dose 1 TAB; Start 08/20/16 at 13 :53 Acetaminophen (Tylenol Tab) 650 mg Q4H PRN PO PAIN AND OR ELEVATED TEMP; Start 08/20/16 at 13:54 Sodium Chloride (Nacl) 1 gm TID PO Last administered on 08/25/16 09:26; Admin Dose 1 GM; Start 08/20/16 at 21:00 Lorazepam 0.5 mg 0.5 mg Q6H PRN PO ANXIETY; Start 08/21/16 at 16:30 Dextrose (D10w) 1,000 ml @ 50 mls/hr Q20H IV ; Start 08/22/16 at 07:30 Dexamethasone (Decadron) 4 mg Q8 PO Last administered on 08/25/16 05:28; Admin Dose 4 MG; Start 08/22/16 at 14:00 Insulin Glargine (Lantus) 16 unit DAILY@20 SC Last administered on 08/24/16 21 :11; Admin Dose 16 UNIT; Start 08/23/16 at 20:00 Insulin Human NPH (Humulin N) 6 unit Q8 SC Last administered on 08/25/16 05:29 ; Admin Dose 6 UNIT; Start 08/23/16 at 22:00 Hydralazine HCl (Apresoline) 25 mg BID PO Last administered on 08/25/16 09:25 ; Admin Dose 25 MG; Start 08/25/16 at 09:30 BIBIANA DUKE Aug 25, 2016 11:43
--- NOTE | 2016-08-25 14:42 | CONS ---
Date/Time of Note Date/Time of Note DATE: 08/25/16 TIME: 14:41 Assessment/Plan Assessment/Plan Additional Assessment/Plan 1. Severe hyponatremia with a sodium 114 on admission. 2. Acute metabolic encephalopathy and fall at home secondary to severe hyponatremia. 3. Hypovolemic hyponatremia versus syndrome of inappropriate diuretic hormone. 4. Hypertension. 5. Hyperlipidemia. 6. History of prostate carcinoma. 7. History of diabetes mellitus. 8. History of bilateral knee arthritis. 9. Anemia, Iron deficiency,iron sat 16%, normal ferritin Plan: S/p 3 % saline,and S/p one dose of tolvaptan 15 gram PO x 1 dose before- another dose of tolvaptan 15mg on 08/21/16- Na improved to 134 then dropped to 130 today D/c lotensin due to hyperkalemia, give kayexalate 15 gram PO x 1 dose now on Na chloride table 1 gram PO TID Cr normal, will continue to follow up Consultation Date/Type/Reason Admit Date/Time Aug 09, 2016 at 23:11 Type of Consultation: NEPHROLOGY Referring Provider: CHANELLE PAUL MD 24 HR Interval Summary Free Text/Dictation Na dropped to 130 K high, On lotension Exam/Review of Systems Vital Signs Vitals Vital Signs Date Time Temp Pulse Resp B/P Pulse Ox O2 Delivery O2 Flow Rate FiO2 08/25/16 07:30 98.8 56 18 143/63 96 Intake and Output 08/24/16 08/24/16 08/25/16 15:00 23:00 07:00 Intake Total 790 ml 480 ml Output Total 1220 ml 700 ml Balance -430 ml -220 ml Results Result Diagram: 08/25/16 0433 08/25/16 0433 Results 24 hrs Laboratory Tests Test 08/24/16 14:48 08/24/16 17:12 08/24/16 21:08 08/25/16 01:51 Bedside Glucose 265 H 277 H 338 H 199 Test 08/25/16 04:33 08/25/16 05:25 08/25/16 08:00 08/25/16 12:19 White Blood Count 16.8 H Red Blood Count 3.61 L Hemoglobin 10.7 L Hematocrit 32.9 L Mean Corpuscular Volume 91.1 Mean Corpuscular Hemoglobin 29.6 Mean Corpuscular Hemoglobin Concent 32.5 Red Cell Distribution Width 19.2 H Platelet Count 137 L Mean Platelet Volume 10.2 Neutrophils % 90.4 H Lymphocytes % 4.5 L Monocytes % 3.9 Eosinophils % 0.0 Basophils % 0.1 Nucleated Red Blood Cells % 0.1 H Neutrophils # 15.1 H Lymphocytes # 0.8 Monocytes # 0.7 Eosinophils # 0.0 Basophils # 0.0 Nucleated Red Blood Cells # 0.0 Sodium Level 130 L Potassium Level 5.6 H Chloride Level 98 Carbon Dioxide Level 30 Anion Gap 8 Blood Urea Nitrogen 20 Creatinine 0.58 L Glucose Level 115 Calcium Level 7.2 L Bedside Glucose 111 85 371 H Test 08/25/16 14:17 Bedside Glucose 416 *H Medications Medications Current Medications Diltiazem HCl (Cardizem Iv) 5 mg Q6H PRN IV ELEVATED HEART RATE; Start 08/10/16 at 03:45 Miscellaneous Information 1 ea NOTE XX ; Start 08/10/16 at 03:45 Glucose (Glutose) 15 gm Q15M PRN PO DECREASED GLUCOSE; Start 08/10/16 at 03:45 Glucose (Glutose) 22.5 gm Q15M PRN PO DECREASED GLUCOSE; Start 08/10/16 at 03:45 Dextrose (D50w Syringe) 25 ml Q15M PRN IV DECREASED GLUCOSE; Start 08/10/16 at 03:45 Dextrose (D50w Syringe) 50 ml Q15M PRN IV DECREASED GLUCOSE; Start 08/10/16 at 03:45 Glucagon (Glucagen) 1 mg Q15M PRN IM DECREASED GLUCOSE; Start 08/10/16 at 03:45 Glucose (Glutose) 15 gm Q15M PRN BUCCAL DECREASED GLUCOSE; Start 08/10/16 at 03: 45 Miscellaneous Information (Pending [facility] Order For Wound Care) This patient melendez... PRN PRN XX WOUND CARE; Start 08/10/16 at 12:00 Metoprolol Tartrate 5 mg 5 mg Q4H PRN IV hr>110 hold sbp<100; Start 08/10/16 at 14:30 Ceftriaxone Sodium (Rocephin) 50 ml @ 100 mls/hr Q24H IVPB Last administered on 08/24/16t 21:11; Admin Dose 100 MLS/HR; Start 08/14/16 at 20:00 Zolpidem Tartrate (Ambien) 5 mg HS PRN PO INSOMNIA Last administered on 21:57; Admin Dose 5 MG; Start 08/18/16 at 22:00 Amiodarone HCl (Cordarone) 200 mg DAILY PO Last administered on 08/25/16 09:26 ; Admin Dose 200 MG; Start 08/20/16 at 09:00 Furosemide (Lasix) 20 mg DAILY PO Last administered on 08/25/16 09:26; Admin Dose 20 MG; Start 08/20/16 at 09:00 Pantoprazole (Protonix Tab) 40 mg DAILY@06 PO Last administered on 08/25/16 05 :29; Admin Dose 40 MG; Start 08/20/16 at 06:00 Metoprolol Tartrate (Lopressor) 12.5 mg BID PO Last administered on 08/25/16 09:26; Admin Dose 12.5 MG; Start 08/20/16 at 21:00 Acetaminophen (Tylenol Supp) 650 mg Q6H PRN [place] FEVER; Start 08/20/16 at 15:00 Acetaminophen/ Hydrocodone Bitart ([place] (5/325)) 1 tab Q6H PRN PO PAIN LEVEL 7 -10 Last administered on 08/25/16 00:20; Admin Dose 1 TAB; Start 08/20/16 at 13 :53 Acetaminophen (Tylenol Tab) 650 mg Q4H PRN PO PAIN AND OR ELEVATED TEMP; Start 08/20/16 at 13:54 Sodium Chloride (Nacl) 1 gm TID PO Last administered on 08/25/16 12:24; Admin Dose 1 GM; Start 08/20/16 at 21:00 Lorazepam (Ativan) 0.5 mg Q6H PRN PO ANXIETY; Start 08/21/16 at 16:30 Dexamethasone (Decadron) 4 mg Q8 PO Last administered on 08/25/16 13:59; Admin Dose 4 MG; Start 08/22/16 at 14:00 Insulin Glargine (Lantus) 16 unit DAILY@20 SC Last administered on 08/24/16 21 :11; Admin Dose 16 UNIT; Start 08/23/16 at 20:00 Hydralazine HCl (Apresoline) 25 mg BID PO Last administered on 08/25/16 09:25 ; Admin Dose 25 MG; Start 08/25/16 at 09:30 Insulin Human NPH (Humulin N) 8 unit Q8 SC ; Start 08/25/16 at 22:00 KARLENE MUÑOZ MD Aug 25, 2016 14:42
[2016-08-25] MEDS ORDERED: INSULIN ASPART [NOVOLOG] 3 ML PEN SC SCH (17:35)
[2016-08-25 20:00] VITALS: BP_SYST 110; BP_SYST 139; BP_DIAS 63; BP_DIAS 77; RESP 18; RESP 19
--- NOTE | 2016-08-25 20:41 | CONS ---
Date/Time of Note Date/Time of Note DATE: 08/25/16 TIME: 15:34 Assessment/Plan Assessment/Plan Additional Assessment/Plan Paroxysmal atrial flutter Congestive heart failure Hypertension Altered mental state/encephalopathy. Hyponatremia Urinary tract infection. Anemia. Pleural effusions Diabetes Prostate ca-metastatic In sinus rhythm BP Controlled Continue Lasix Continue Metoprolol and amiodarone Continue Hydralazine Continue Dexamethasone continue Insulin Continue Antibiotics Continue GI and DVT Prophylaxis Consultation Date/Type/Reason Admit Date/Time Aug 09, 2016 at 23:11 Constitutional: improved Eyes: no complaints ENT: no complaints Respiratory: cough, no complaints Cardiovascular: no complaints Gastrointestinal: no complaints Genitourinary: no complaints Musculoskeletal: no complaints Psychological: no complaints Social History Alcohol Use: none Smoking Status: Never smoker Exam/Review of Systems Vital Signs Vitals Vital Signs Date Time Temp Pulse Resp B/P Pulse Ox O2 Delivery O2 Flow Rate FiO2 08/25/16 07:30 98.8 56 18 143/63 96 Intake and Output 08/24/16 08/24/16 08/25/16 15:00 23:00 07:00 Intake Total 790 ml 480 ml Output Total 1220 ml 700 ml Balance -430 ml -220 ml Exam Head: atraumatic, normocephalic Neck: non-tender, supple Respiratory: clear to auscultation Cardiovascular: regular rate and rhythm Gastrointestinal: nl liver, spleen, non-tender, soft Extremities: normal pulses Results Result Diagram: 08/25/16 0433 08/25/16 0433 Results 24 hrs Laboratory Tests Test 08/24/16 17:12 08/24/16 21:08 08/25/16 01:51 08/25/16 04:33 Bedside Glucose 277 H 338 H 199 White Blood Count 16.8 H Red Blood Count 3.61 L Hemoglobin 10.7 L Hematocrit 32.9 L Mean Corpuscular Volume 91.1 Mean Corpuscular Hemoglobin 29.6 Mean Corpuscular Hemoglobin Concent 32.5 Red Cell Distribution Width 19.2 H Platelet Count 137 L Mean Platelet Volume 10.2 Neutrophils % 90.4 H Lymphocytes % 4.5 L Monocytes % 3.9 Eosinophils % 0.0 Basophils % 0.1 Nucleated Red Blood Cells % 0.1 H Neutrophils # 15.1 H Lymphocytes # 0.8 Monocytes # 0.7 Eosinophils # 0.0 Basophils # 0.0 Nucleated Red Blood Cells # 0.0 Sodium Level 130 L Potassium Level 5.6 H Chloride Level 98 Carbon Dioxide Level 30 Anion Gap 8 Blood Urea Nitrogen 20 Creatinine 0.58 L Glucose Level 115 Calcium Level 7.2 L Test 08/25/16 05:25 08/25/16 08:00 08/25/16 12:19 08/25/16 14:17 Bedside Glucose 111 85 371 H 416 *H Medications Medications Current Medications Diltiazem HCl (Cardizem Iv) 5 mg Q6H PRN IV ELEVATED HEART RATE; Start 08/10/16 at 03:45 Miscellaneous Information 1 ea NOTE XX ; Start 08/10/16 at 03:45 Glucose (Glutose) 15 gm Q15M PRN PO DECREASED GLUCOSE; Start 08/10/16 at 03:45 Glucose (Glutose) 22.5 gm Q15M PRN PO DECREASED GLUCOSE; Start 08/10/16 at 03:45 Dextrose (D50w Syringe) 25 ml Q15M PRN IV DECREASED GLUCOSE; Start 08/10/16 at 03:45 Dextrose (D50w Syringe) 50 ml Q15M PRN IV DECREASED GLUCOSE; Start 08/10/16 at 03:45 Glucagon (Glucagen) 1 mg Q15M PRN IM DECREASED GLUCOSE; Start 08/10/16 at 03:45 Glucose (Glutose) 15 gm Q15M PRN BUCCAL DECREASED GLUCOSE; Start 08/10/16 at 03: 45 [facility] This patient melendez... PRN PRN XX WOUND CARE; Start 08/10/16 at 12:00 Metoprolol Tartrate 5 mg 5 mg Q4H PRN IV hr>110 hold sbp<100; Start 08/10/16 at 14:30 Ceftriaxone Sodium (Rocephin) 50 ml @ 100 mls/hr Q24H IVPB Last administered on 08/24/16 21:11; Admin Dose 100 MLS/HR; Start 08/14/16 at 20:00 Zolpidem Tartrate (Ambien) 5 mg HS PRN PO INSOMNIA Last administered on 21:57; Admin Dose 5 MG; Start 08/18/16 at 22:00 Amiodarone HCl (Cordarone) 200 mg DAILY PO Last administered on 08/25/16 09:26 ; Admin Dose 200 MG; Start 08/20/16 at 09:00 Furosemide (Lasix) 20 mg DAILY PO Last administered on 08/25/16 09:26; Admin Dose 20 MG; Start 08/20/16 at 09:00 Pantoprazole (Protonix Tab) 40 mg DAILY@06 PO Last administered on 08/25/16 05 :29; Admin Dose 40 MG; Start 08/20/16 at 06:00 Metoprolol Tartrate (Lopressor) 12.5 mg BID PO Last administered on 08/25/16 09:26; Admin Dose 12.5 MG; Start 08/20/16 at 21:00 Acetaminophen (Tylenol Supp) 650 mg Q6H PRN [place] FEVER; Start 08/20/16 at 15:00 Acetaminophen/ Hydrocodone Bitart ([place] (5/325)) 1 tab Q6H PRN PO PAIN LEVEL 7 -10 Last administered on 08/25/16 00:20; Admin Dose 1 TAB; Start 08/20/16 at 13 :53 Acetaminophen (Tylenol Tab) 650 mg Q4H PRN PO PAIN AND OR ELEVATED TEMP; Start 08/20/16 at 13:54 Sodium Chloride (Nacl) 1 gm TID PO Last administered on 08/25/16 12:24; Admin Dose 1 GM; Start 08/20/16 at 21:00 Lorazepam (Ativan) 0.5 mg Q6H PRN PO ANXIETY; Start 08/21/16 at 16:30 Dexamethasone (Decadron) 4 mg Q8 PO Last administered on 08/25/16 13:59; Admin Dose 4 MG; Start 08/22/16 at 14:00 Insulin Glargine (Lantus) 16 unit DAILY@20 SC Last administered on 08/24/16 21 :11; Admin Dose 16 UNIT; Start 08/23/16 at 20:00 Hydralazine HCl (Apresoline) 25 mg BID PO Last administered on 08/25/16 09:25 ; Admin Dose 25 MG; Start 08/25/16 at 09:30 Insulin Human NPH (Humulin N) 8 unit Q8 SC ; Start 08/25/16 at 22:00 ANDREW HOLLAND M.D. Aug 25, 2016 15:38
--- NOTE | 2016-08-25 20:42 | CONS ---
Date/Time of Note Date/Time of Note DATE: 08/25/16 TIME: 16:15 Assessment/Plan Assessment/Plan Problems: (1) Type 2 diabetes mellitus with hyperglycemia Status: Chronic Comment: Glucose levels are high in the afternoon and evening but controlled overnight. However, pt. receiving the same doses of decadron and NPH around the clock. Therefore, it stands to reason that the NPH dose is not the problem. Would continue the same dosage of NPH. However, would increase the doses of mealtime Novolog during the day as the problem obviously occurs when the patient eats. Will increase Novolog from 9 units sq qac to 12 units w/ breakfast and 15 units w/ lunch and dinner. Will follow up and reeval daily. (2) Hyponatremia Status: Acute Comment: Pt. w/ dropping serum sodium. Rather than give him another dose of tolvaptan, pt. could be placed on a fluid restriction (he currently is not). Calculated insensible losses for this pt. are 400-600 mL/sq.m/d. Pt. 1.81 sq. meters. This equals about 800-1000 mL per day. That would be an effective fluid restriction. Would consider imposing this before giving another dose of tolvaptan or increasing the sodium intake. Consultation Date/Type/Reason Admit Date/Time Aug 09, 2016 at 23:11 Date of Consultation: Aug 25, 2016 Type of Consultation: Endocrinology Reason for Consultation T2DM OOC, on steroids Referring Provider: BIBIANA DUKE Hx of Present Illness 86 y/o H M w/ 8 y. h/o metastatic prostate CA, HTN, T2DM, presented 15 days ago after a fall w/ AMS and found to have hyponatremia w/ Sodium to 117 and then as low as 114. Required 3% saline and then a dose of tolvaptan. Sodium did improve. Pt. treated w/ decadron for metastatic prostate CA and did have erratic BG values. BG's both low and high, swinging from good control to 400' s. Endo consulted. Constitutional: no complaints Eyes: no complaints ENT: no complaints Respiratory: no complaints Cardiovascular: no complaints Gastrointestinal: no complaints Genitourinary: no complaints Musculoskeletal: no complaints Neurologic: no complaints Psychological: no complaints Past Medical History Medical History: cancer (prostate), diabetes, high cholesterol, hypertension, other (OA, BPH) Past Surgical History Past Surgical Hx: appendectomy, other (status post cataract surgery and status post ERCP with stent removal, sphincterectomy and removal of stones by Dr. 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) Smoking Status: Never smoker Drug Use: none Exam/Review of Systems Vital Signs Vitals VS - Last 72 Hours, by Label Date Time Temp Pulse Resp B/P Pulse Ox O2 Delivery O2 Flow Rate FiO2 08/25/16 07:30 98.8 56 18 143/63 96 08/24/16 20:32 98.5 63 16 125/57 96 08/24/16 09:36 57 148/67 08/24/16 08:51 97.6 60 17 140/63 98 08/23/16 20:19 98.5 66 16 106/58 96 08/23/16 08:00 97.8 58 19 115/58 97 08/22/16 20:10 98.0 77 18 110/52 95 Vital Signs Date Time Temp Pulse Resp B/P Pulse Ox O2 Delivery O2 Flow Rate FiO2 08/25/16 07:30 98.8 56 18 143/63 96 Intake and Output 08/24/16 08/24/16 08/25/16 14:59 22:59 06:59 Intake Total 790 ml 480 ml Output Total 1220 ml 700 ml Balance -430 ml -220 ml Exam Constitutional: alert, oriented, well developed Psych: nl mood/affect, no complaints Eyes: EOMI, PERRL, nl conjunctiva, nl lids, nl sclera ENMT: mucosa pink and moist, nl external ears & nose Neck: non-tender, supple, No bruits, No masses, No thyromegaly Cardiovascular: nl pulses, regular rate and rhythm, No edema, No murmurs/extra sounds, No rub Gastrointestinal: bowel sounds, nl liver, spleen, non-tender, soft, No mass, No rebound or guarding Musculoskeletal: nl extremities to inspection Extremities: normal pulses, No clubbing, No cyanosis, No edema Neurological: HOT BRAIDER II-XII intact, nl mental status, nl speech, nl strength Additional Comments Bedside Glucose - 72 Hours Test 08/22/16 17:00 08/22/16 20:01 08/22/16 22:08 08/23/16 05:52 Bedside Glucose 125mg/dL (70-220) 122mg/dL (70-220) 157mg/dL (70-220) 126mg/dL (70-220) Test 08/23/16 08:04 08/23/16 12:14 08/23/16 16:18 08/23/16 17:16 Bedside Glucose 138mg/dL (70-220) 211mg/dL (70-220) 414mg/dL (70-220) *H 360mg/dL (70-220) H Test 08/23/16 19:06 08/23/16 21:14 08/24/16 01:52 08/24/16 05:39 Bedside Glucose 341mg/dL (70-220) H 357mg/dL (70-220) H 187mg/dL (70-220) 93mg/dL (70-220) Test 08/24/16 08:02 08/24/16 11:48 08/24/16 14:48 08/24/16 17:12 Bedside Glucose 72mg/dL (70-220) 177mg/dL (70-220) 265mg/dL (70-220) H 277mg/dL (70-220) H Test 08/24/16 21:08 08/25/16 01:51 08/25/16 05:25 08/25/16 08:00 Bedside Glucose 338mg/dL (70-220) H 199mg/dL (70-220) 111mg/dL (70-220) 85mg/dL (70-220) Test 08/25/16 12:19 08/25/16 14:17 Bedside Glucose 371mg/dL (70-220) H 416mg/dL (70-220) *H Results Result Diagram: 08/25/16 0433 08/25/16 0433 Results 24 hrs Laboratory Tests Test 08/24/16 17:12 08/24/16 21:08 08/25/16 01:51 08/25/16 04:33 Bedside Glucose 277 H 338 H 199 White Blood Count 16.8 H Red Blood Count 3.61 L Hemoglobin 10.7 L Hematocrit 32.9 L Mean Corpuscular Volume 91.1 Mean Corpuscular Hemoglobin 29.6 Mean Corpuscular Hemoglobin Concent 32.5 Red Cell Distribution Width 19.2 H Platelet Count 137 L Mean Platelet Volume 10.2 Neutrophils % 90.4 H Lymphocytes % 4.5 L Monocytes % 3.9 Eosinophils % 0.0 Basophils % 0.1 Nucleated Red Blood Cells % 0.1 H Neutrophils # 15.1 H Lymphocytes # 0.8 Monocytes # 0.7 Eosinophils # 0.0 Basophils # 0.0 Nucleated Red Blood Cells # 0.0 Sodium Level 130 L Potassium Level 5.6 H Chloride Level 98 Carbon Dioxide Level 30 Anion Gap 8 Blood Urea Nitrogen 20 Creatinine 0.58 L Glucose Level 115 Calcium Level 7.2 L Test 08/25/16 05:25 08/25/16 08:00 08/25/16 12:19 08/25/16 14:17 Bedside Glucose 111 85 371 H 416 *H Medications Medications Current Medications Diltiazem HCl (Cardizem Iv) 5 mg Q6H PRN IV ELEVATED HEART RATE; Start 08/10/16 at 03:45 Miscellaneous Information 1 ea NOTE XX ; Start 08/10/16 at 03:45 Glucose (Glutose) 15 gm Q15M PRN PO DECREASED GLUCOSE; Start 08/10/16 at 03:45 Glucose (Glutose) 22.5 gm Q15M PRN PO DECREASED GLUCOSE; Start 08/10/16 at 03:45 Dextrose (D50w Syringe) 25 ml Q15M PRN IV DECREASED GLUCOSE; Start 08/10/16 at 03:45 Dextrose (D50w Syringe) 50 ml Q15M PRN IV DECREASED GLUCOSE; Start 08/10/16 at 03:45 Glucagon (Glucagen) 1 mg Q15M PRN IM DECREASED GLUCOSE; Start 08/10/16 at 03:45 Glucose (Glutose) 15 gm Q15M PRN BUCCAL DECREASED GLUCOSE; Start 08/10/16 at 03: 45 Miscellaneous Information (Pending [facility] Order For Wound Care) This patient melendez... PRN PRN XX WOUND CARE; Start 08/10/16 at 12:00 Metoprolol Tartrate 5 mg 5 mg Q4H PRN IV hr>110 hold sbp<100; Start 08/10/16 at 14:30 Ceftriaxone Sodium (Rocephin) 50 ml @ 100 mls/hr Q24H IVPB Last administered on 08/24/16 21:11; Admin Dose 100 MLS/HR; Start 08/14/16 at 20:00 Zolpidem Tartrate (Ambien) 5 mg HS PRN PO INSOMNIA Last administered on 21:57; Admin Dose 5 MG; Start 08/18/16 at 22:00 Amiodarone HCl (Cordarone) 200 mg DAILY PO Last administered on 08/25/16 09:26 ; Admin Dose 200 MG; Start 08/20/16 at 09:00 Furosemide (Lasix) 20 mg DAILY PO Last administered on 08/25/16 09:26; Admin Dose 20 MG; Start 08/20/16 at 09:00 Pantoprazole (Protonix Tab) 40 mg DAILY@06 PO Last administered on 08/25/16 05 :29; Admin Dose 40 MG; Start 08/20/16 at 06:00 Metoprolol Tartrate (Lopressor) 12.5 mg BID PO Last administered on 08/25/16 09:26; Admin Dose 12.5 MG; Start 08/20/16 at 21:00 Acetaminophen (Tylenol Supp) 650 mg Q6H PRN [place] FEVER; Start 08/20/16 at 15:00 Acetaminophen/ Hydrocodone Bitart ([place] (5/325)) 1 tab Q6H PRN PO PAIN LEVEL 7 -10 Last administered on 08/25/16 00:20; Admin Dose 1 TAB; Start 08/20/16 at 13 :53 Acetaminophen (Tylenol Tab) 650 mg Q4H PRN PO PAIN AND OR ELEVATED TEMP; Start 08/20/16 at 13:54 Sodium Chloride (Nacl) 1 gm TID PO Last administered on 08/25/16 12:24; Admin Dose 1 GM; Start 08/20/16 at 21:00 Lorazepam (Ativan) 0.5 mg Q6H PRN PO ANXIETY; Start 08/21/16 at 16:30 Dexamethasone (Decadron) 4 mg Q8 PO Last administered on 08/25/16 13:59; Admin Dose 4 MG; Start 08/22/16 at 14:00 Insulin Glargine (Lantus) 16 unit DAILY@20 SC Last administered on 08/24/16 21 :11; Admin Dose 16 UNIT; Start 08/23/16 at 20:00 Hydralazine HCl (Apresoline) 25 mg BID PO Last administered on 08/25/16t 09:25 ; Admin Dose 25 MG; Start 08/25/16 at 09:30 Insulin Human NPH (Humulin N) 8 unit Q8 SC ; Start 08/25/16 at 22:00 NANCY MEDEROS MD Aug 25, 2016 16:27
[2016-08-25] MEDS: CEFTRIAXONE 1 GM/50 ML (PMX) 50 ML IVPB SCH (21:26)
[2016-08-25] MEDS: INSULIN GLARGINE [LANtus] 3 ML PEN SC SCH (21:31)
[2016-08-25] MEDS ORDERED: NPH, HUMAN INSULIN ISOPHANE 3ML VIAL SC SCH ×2 (22:00)
[2016-08-25] MEDS: ZOLPIDEM 5 MG TAB PO PRN (23:11)
[2016-08-26] MEDS: PANTOPRAZOLE (EC) 40 MG TAB PO SCH (05:17)
[2016-08-26 05:42] LABS: ADD SCAN DIFF NO
[2016-08-26 05:52] LABS: BASOPHILS % 0.1 % (0.0-2.0); EOSINOPHILS % 0.1 % (0.0-7.0); HEMATOCRIT 30.1 % (42.0-52.0); HEMOGLOBIN 10.2 g/dl (14.0-18.0); LYMPHOCYTES # 0.7 10^3/ul (0.8-2.9); LYMPHOCYTES % 5.6 % (15.0-51.0); MEAN CORPUSCULAR HEMOGLOBIN 30.7 pg (29.0-33.0); MEAN CORPUSCULAR HGB CONC 33.9 g/dl (32.0-37.0); MEAN CORPUSCULAR VOLUME 90.7 fl (82.0-101.0); MEAN PLATELET VOLUME 9.7 fl (7.4-10.4); MONOCYTE # 0.5 10^3/ul (0.3-0.9); MONOCYTES % 3.9 % (0.0-11.0); NEUTROPHIL # 11.6 10^3/ul (1.6-7.5); NEUTROPHILS % 89.1 % (39.0-77.0); NUCLEATED RED BLOOD CELLS% 0.2 /100WBC (0.0-0.0); PLATELET COUNT 116 10^3/UL (140-415); RED BLOOD COUNT 3.32 10^6/ul (4.70-6.10); RED CELL DISTRIBUTION WIDTH 18.9 % (11.5-14.5)
[2016-08-26] MEDS: DEXAMETHASONE 4 MG TAB PO SCH ×3 (06:00→21:25)
[2016-08-26 06:21] LABS: CALCIUM 7.1 mg/dl (8.4-10.2); CREATININE 0.39 mg/dl (0.61-1.24); POTASSIUM 4.2 mmol/L (3.5-5.1)
[2016-08-26] MEDS: Insulin NOVOLOG SS MILD Algorithm (SS with meals and bedtime) SC SCH ×4 (07:30→20:29)
[2016-08-26] MEDS ORDERED: INSULIN ASPART [NOVOLOG] 3 ML PEN SC SCH ×5 (07:30→17:35)
[2016-08-26 08:02] VITALS: BP 134/64; RESP 18
[2016-08-26] MEDS: FUROSEMIDE 20 MG TAB PO SCH (08:13)
[2016-08-26] MEDS: SODIUM CHLORIDE 1 GM TAB PO SCH ×3 (08:13→20:31)
[2016-08-26] MEDS: AMIODARONE 200 MG TAB PO SCH (08:14)
[2016-08-26] MEDS: METOPROLOL 25 MG TAB PO SCH ×2 (08:14→20:31)
--- NOTE | 2016-08-26 10:22 | PN ---
Date/Time of Note Date/Time of Note DATE: 08/26/16 TIME: 10:21 Assessment/Plan Lines/Catheters IV [facility]from [facility] Urinary Cath still in place: No Assessment/Plan Assessment/Plan - Hyperkalemia- RESOLVED, am BMP - Metastatic prostate cancer. Dr. Sinclair is following in hematology consultation. Dr. Huang is following in urology consultation. On Lupron status post Zometa. Patient had no cord compression per evaluation by Dr. Coto, radiation oncology. - Coagulase-negative staph urinary bacteremia secondary to urinary tract infection. Continue ceftriaxone. - Acute metabolic encephalopathy, resolved. - Hypertension. Continue metoprolol and benazepril. - Paroxysmal atrial flutter. Dr. Ragsdale is following and cardiology consultation. - Diastolic dysfunction congestive heart failure. Continue Lasix monitor electrolytes. - Hyponatremia secondary to SIADH Dr. Howard is following patient in nephrology consultation. - Diabetes mellitus. Continue Lantus and NovoLog. - Anemia, status post blood transfusion. Continue to monitor hemoglobin and hematocrit. - Urinary retention. Continue to follow up urology recommendation. Case management for DC planning. Further recommendations based on clinical course. Plan of care discussed with Dr. Gregory. Subjective 24 Hr Interval Summary Constitutional: improved Respiratory: no complaints Cardiovascular: no complaints Gastrointestinal: no complaints Genitourinary: no complaints Musculoskeletal: no complaints Skin: no complaints Exam/Review of Systems Vital Signs Vitals Vital Signs Date Time Temp Pulse Resp B/P Pulse Ox O2 Delivery O2 Flow Rate FiO2 08/26/16 08:02 98.0 56 18 134/64 98 Intake and Output 08/25/16 08/25/16 08/26/16 15:00 23:00 07:00 Intake Total 770 ml 300 ml Balance 770 ml 300 ml Exam Constitutional: alert, oriented, well developed Respiratory: clear to auscultation, normal air movement Cardiovascular: nl pulses, regular rate and rhythm Gastrointestinal: non-tender, soft Musculoskeletal: nl extremities to inspection Neurological: nl mental status, nl speech Results Result Diagram: 08/26/16 0520 08/26/16 0520 Results 24 hrs Laboratory Tests Test 08/25/16 12:19 08/25/16 14:17 08/25/16 21:13 08/25/16 21:37 Bedside Glucose 371 H 416 *H 409 *H Glucose Level 386 #H Test 08/26/16 01:47 08/26/16 05:14 08/26/16 05:20 08/26/16 08:06 Bedside Glucose 226 H 156 149 White Blood Count 13.0 #H Red Blood Count 3.32 L Hemoglobin 10.2 L Hematocrit 30.1 L Mean Corpuscular Volume 90.7 Mean Corpuscular Hemoglobin 30.7 Mean Corpuscular Hemoglobin Concent 33.9 Red Cell Distribution Width 18.9 H Platelet Count 116 L Mean Platelet Volume 9.7 Neutrophils % 89.1 H Lymphocytes % 5.6 L Monocytes % 3.9 Eosinophils % 0.1 Basophils % 0.1 Nucleated Red Blood Cells % 0.2 H Neutrophils # 11.6 H Lymphocytes # 0.7 L Monocytes # 0.5 Eosinophils # 0.0 Basophils # 0.0 Nucleated Red Blood Cells # 0.0 Sodium Level 133 L Potassium Level 4.2 Chloride Level 104 Carbon Dioxide Level 26 Anion Gap 7 L Blood Urea Nitrogen 18 Creatinine 0.39 L Glucose Level 161 # Calcium Level 7.1 L Medications Medications Current Medications Diltiazem HCl (Cardizem Iv) 5 mg Q6H PRN IV ELEVATED HEART RATE; Start 08/10/16 at 03:45 Miscellaneous Information 1 ea NOTE XX ; Start 08/10/16 at 03:45 Glucose (Glutose) 15 gm Q15M PRN PO DECREASED GLUCOSE; Start 08/10/16 at 03:45 Glucose (Glutose) 22.5 gm Q15M PRN PO DECREASED GLUCOSE; Start 08/10/16 at 03:45 Dextrose (D50w Syringe) 25 ml Q15M PRN IV DECREASED GLUCOSE; Start 08/10/16 at 03:45 Dextrose (D50w Syringe) 50 ml Q15M PRN IV DECREASED GLUCOSE; Start 08/10/16 at 03:45 Glucagon (Glucagen) 1 mg Q15M PRN IM DECREASED GLUCOSE; Start 08/10/16 at 03:45 Glucose (Glutose) 15 gm Q15M PRN BUCCAL DECREASED GLUCOSE; Start 08/10/16 at 03: 45 Miscellaneous Information (Pending [facility] Order For Wound Care) This patient melendez... PRN PRN XX WOUND CARE; Start 08/10/16 at 12:00 Metoprolol Tartrate 5 mg 5 mg Q4H PRN IV hr>110 hold sbp<100; Start 08/10/16 at 14:30 Ceftriaxone Sodium (Rocephin) 50 ml @ 100 mls/hr Q24H IVPB Last administered on 08/25/16 21:26; Admin Dose 100 MLS/HR; Start 08/14/16 at 20:00 Zolpidem Tartrate (Ambien) 5 mg HS PRN PO INSOMNIA Last administered on 23:11; Admin Dose 5 MG; Start 08/18/16 at 22:00 Amiodarone HCl (Cordarone) 200 mg DAILY PO Last administered on 08/25/16 09:26 ; Admin Dose 200 MG; Start 08/20/16 at 09:00 Furosemide (Lasix) 20 mg DAILY PO Last administered on 08/26/16 08:13; Admin Dose 20 MG; Start 08/20/16 at 09:00 Pantoprazole (Protonix Tab) 40 mg DAILY@06 PO Last administered on 08/26/16 05 :17; Admin Dose 40 MG; Start 08/20/16 at 06:00 Metoprolol Tartrate (Lopressor) 12.5 mg BID PO Last administered on 08/25/16 09:26; Admin Dose 12.5 MG; Start 08/20/16 at 21:00 Acetaminophen (Tylenol Supp) 650 mg Q6H PRN [place] FEVER; Start 08/20/16 at 15:00 Acetaminophen/ Hydrocodone Bitart ([place] (5/325)) 1 tab Q6H PRN PO PAIN LEVEL 7 -10 Last administered on 08/25/16 00:20; Admin Dose 1 TAB; Start 08/20/16 at 13 :53 Acetaminophen (Tylenol Tab) 650 mg Q4H PRN PO PAIN AND OR ELEVATED TEMP; Start 08/20/16 at 13:54 Sodium Chloride (Nacl) 1 gm TID PO Last administered on 08/26/16 08:13; Admin Dose 1 GM; Start 08/20/16 at 21:00 Lorazepam (Ativan) 0.5 mg Q6H PRN PO ANXIETY; Start 08/21/16 at 16:30 Dexamethasone (Decadron) 4 mg Q8 PO Last administered on 08/25/16 13:59; Admin Dose 4 MG; Start 08/22/16 at 14:00 Insulin Glargine (Lantus) 16 unit DAILY@20 SC Last administered on 08/25/16 21 :31; Admin Dose 16 UNIT; Start 08/23/16 at 20:00 Hydralazine HCl (Apresoline) 25 mg BID PO Last administered on 08/26/16 08:14 ; Admin Dose 25 MG; Start 08/25/16 at 09:30 Insulin Human NPH (Humulin N) 6 unit Q8 SC ; Start 08/25/16 at 22:00 BIBIANA DUKE Aug 26, 2016 10:22
--- NOTE | 2016-08-26 12:52 | CONS ---
Date/Time of Note Date/Time of Note DATE: 08/26/16 TIME: 12:48 Assessment/Plan Assessment/Plan Additional Assessment/Plan Paroxysmal atrial flutter Congestive heart failure Hypertension Altered mental state/encephalopathy. Hyponatremia Urinary tract infection. Anemia. Pleural effusions Diabetes Prostate ca-metastatic In sinus rhythm BP Controlled Discontinue Lasix Continue Metoprolol and amiodarone Continue Hydralazine Continue Dexamethasone continue Insulin Continue Antibiotics Continue GI and DVT Prophylaxis Consultation Date/Type/Reason Admit Date/Time Aug 09, 2016 at 23:11 Initial Consult Date 08/25/16 Type of Consultation: Endocrinology Referring Provider: BIBIANA DUKE Exam/Review of Systems Vital Signs Vitals Vital Signs Date Time Temp Pulse Resp B/P Pulse Ox O2 Delivery O2 Flow Rate FiO2 08/26/16 08:02 98.0 56 18 134/64 98 Intake and Output 08/25/16 08/25/16 08/26/16 15:00 23:00 07:00 Intake Total 770 ml 300 ml Balance 770 ml 300 ml Results Result Diagram: 08/26/16 0520 08/26/16 0520 Results 24 hrs Laboratory Tests Test 08/25/16 14:17 08/25/16 21:13 08/25/16 21:37 08/26/16 01:47 Bedside Glucose 416 *H 409 *H 226 H Glucose Level 386 #H Test 08/26/16 05:14 08/26/16 05:20 08/26/16 08:06 08/26/16 11:56 Bedside Glucose 156 149 219 White Blood Count 13.0 #H Red Blood Count 3.32 L Hemoglobin 10.2 L Hematocrit 30.1 L Mean Corpuscular Volume 90.7 Mean Corpuscular Hemoglobin 30.7 Mean Corpuscular Hemoglobin Concent 33.9 Red Cell Distribution Width 18.9 H Platelet Count 116 L Mean Platelet Volume 9.7 Neutrophils % 89.1 H Lymphocytes % 5.6 L Monocytes % 3.9 Eosinophils % 0.1 Basophils % 0.1 Nucleated Red Blood Cells % 0.2 H Neutrophils # 11.6 H Lymphocytes # 0.7 L Monocytes # 0.5 Eosinophils # 0.0 Basophils # 0.0 Nucleated Red Blood Cells # 0.0 Sodium Level 133 L Potassium Level 4.2 Chloride Level 104 Carbon Dioxide Level 26 Anion Gap 7 L Blood Urea Nitrogen 18 Creatinine 0.39 L Glucose Level 161 # Calcium Level 7.1 L Medications Medications Current Medications Diltiazem HCl (Cardizem Iv) 5 mg Q6H PRN IV ELEVATED HEART RATE; Start 08/10/16 at 03:45 Miscellaneous Information 1 ea NOTE XX ; Start 08/10/16 at 03:45 Glucose (Glutose) 15 gm Q15M PRN PO DECREASED GLUCOSE; Start 08/10/16 at 03:45 Glucose (Glutose) 22.5 gm Q15M PRN PO DECREASED GLUCOSE; Start 08/10/16 at 03:45 Dextrose (D50w Syringe) 25 ml Q15M PRN IV DECREASED GLUCOSE; Start 08/10/16 at 03:45 Dextrose (D50w Syringe) 50 ml Q15M PRN IV DECREASED GLUCOSE; Start 08/10/16 at 03:45 Glucagon (Glucagen) 1 mg Q15M PRN IM DECREASED GLUCOSE; Start 08/10/16 at 03:45 Glucose (Glutose) 15 gm Q15M PRN BUCCAL DECREASED GLUCOSE; Start 08/10/16 at 03: 45 Miscellaneous Information (Pending [facility] Order For Wound Care) This patient melendez... PRN PRN XX WOUND CARE; Start 08/10/16 at 12:00 Metoprolol Tartrate 5 mg 5 mg Q4H PRN IV hr>110 hold sbp<100; Start 08/10/16 at 14:30 Ceftriaxone Sodium (Rocephin) 50 ml @ 100 mls/hr Q24H IVPB Last administered on 08/25/16 21:26; Admin Dose 100 MLS/HR; Start 08/14/16 at 20:00 Zolpidem Tartrate (Ambien) 5 mg HS PRN PO INSOMNIA Last administered on 23:11; Admin Dose 5 MG; Start 08/18/16 at 22:00 Amiodarone HCl (Cordarone) 200 mg DAILY PO Last administered on 08/25/16 09:26 ; Admin Dose 200 MG; Start 08/20/16 at 09:00 Furosemide (Lasix) 20 mg DAILY PO Last administered on 08/26/16 08:13; Admin Dose 20 MG; Start 08/20/16 at 09:00 Pantoprazole (Protonix Tab) 40 mg DAILY@06 PO Last administered on 08/26/16 05 :17; Admin Dose 40 MG; Start 08/20/16 at 06:00 Metoprolol Tartrate (Lopressor) 12.5 mg BID PO Last administered on 08/25/16 09:26; Admin Dose 12.5 MG; Start 08/20/16 at 21:00 Acetaminophen (Tylenol Supp) 650 mg Q6H PRN [place] FEVER; Start 08/20/16 at 15:00 Acetaminophen/ Hydrocodone Bitart ([place] (5/325)) 1 tab Q6H PRN PO PAIN LEVEL 7 -10 Last administered on 08/25/16 00:20; Admin Dose 1 TAB; Start 08/20/16 at 13 :53 Acetaminophen (Tylenol Tab) 650 mg Q4H PRN PO PAIN AND OR ELEVATED TEMP; Start 08/20/16 at 13:54 Sodium Chloride (Nacl) 1 gm TID PO Last administered on 08/26/16 08:13; Admin Dose 1 GM; Start 08/20/16 at 21:00 Lorazepam (Ativan) 0.5 mg Q6H PRN PO ANXIETY; Start 08/21/16 at 16:30 Dexamethasone (Decadron) 4 mg Q8 PO Last administered on 08/25/16 13:59; Admin Dose 4 MG; Start 08/22/16 at 14:00 Insulin Glargine (Lantus) 16 unit DAILY@20 SC Last administered on 08/25/16 21 :31; Admin Dose 16 UNIT; Start 08/23/16 at 20:00 Hydralazine HCl (Apresoline) 25 mg BID PO Last administered on 08/26/16 08:14 ; Admin Dose 25 MG; Start 08/25/16 at 09:30 Insulin Human NPH (Humulin N) 6 unit Q8 SC ; Start 08/26/16 at 14:00 ANDREW HOLLAND M.D. Aug 26, 2016 12:52
--- NOTE | 2016-08-26 13:14 | CONS ---
Date/Time of Note Date/Time of Note DATE: 08/26/16 TIME: 13:11 Assessment/Plan Assessment/Plan Problems: (1) Type 2 diabetes mellitus with hyperglycemia Status: Chronic Comment: Glucose values still high last night. Better today pre-lunch but still above goal. Will increase Novolog from 02/22/15 to and reeval tomorrow. Consultation Date/Type/Reason Admit Date/Time Aug 09, 2016 at 23:11 Initial Consult Date 08/25/16 Type of Consultation: Endocrinology Reason for Consultation [address] Referring Provider: BIBIANA DUKE 24 HR Interval Summary Constitutional: improved, no complaints Detailed Summary Respiratory: no complaints Cardiovascular: no complaints Gastrointestinal: no complaints Genitourinary: no complaints Musculoskeletal: back pain (mild) Neurologic: no complaints Exam/Review of Systems Vital Signs Vitals VS - Last 72 Hours, by Label Date Time Temp Pulse Resp B/P Pulse Ox O2 Delivery O2 Flow Rate FiO2 08/26/16 08:02 98.0 56 18 134/64 98 08/25/16 20:00 97.6 57 18 139/63 94 08/25/16 07:30 98.8 56 18 143/63 96 08/24/16 20:32 98.5 63 16 125/57 96 08/24/16 09:36 57 148/67 08/24/16 08:51 97.6 60 17 140/63 98 08/23/16 20:19 98.5 66 16 106/58 96 Vital Signs Date Time Temp Pulse Resp B/P Pulse Ox O2 Delivery O2 Flow Rate FiO2 08/26/16 08:02 98.0 56 18 134/64 98 Intake and Output 08/25/16 08/25/16 08/26/16 15:00 23:00 07:00 Intake Total 770 ml 300 ml Balance 770 ml 300 ml Exam Constitutional: alert, oriented, well developed Respiratory: clear to auscultation, normal air movement Cardiovascular: nl pulses, regular rate and rhythm, No edema, No murmurs/extra sounds, No rub Gastrointestinal: bowel sounds, nl liver, spleen, non-tender, soft, No mass, No rebound or guarding Musculoskeletal: nl extremities to inspection Extremities: normal pulses, No clubbing, No cyanosis, No edema Neurological: KINDERGARTNER II-XII intact, nl mental status, nl speech, nl strength Additional Comments Bedside Glucose - 72 Hours Test 08/23/16 16:18 08/23/16 17:16 08/23/16 19:06 08/23/16 21:14 Bedside Glucose 414mg/dL (70-220) *H 360mg/dL (70-220) H 341mg/dL (70-220) H 357mg/dL (70-220) H Test 08/24/16 01:52 08/24/16 05:39 08/24/16 08:02 08/24/16 11:48 Bedside Glucose 187mg/dL (70-220) 93mg/dL (70-220) 72mg/dL (70-220) 177mg/dL (70-220) Test 08/24/16 14:48 08/24/16 17:12 08/24/16 21:08 08/25/16 01:51 Bedside Glucose 265mg/dL (70-220) H 277mg/dL (70-220) H 338mg/dL (70-220) H 199mg/dL (70-220) Test 08/25/16 05:25 08/25/16 08:00 08/25/16 12:19 08/25/16 14:17 Bedside Glucose 111mg/dL (70-220) 85mg/dL (70-220) 371mg/dL (70-220) H 416mg/dL (70-220) *H Test 08/25/16 21:13 08/26/16 01:47 08/26/16 05:14 08/26/16 08:06 Bedside Glucose 409mg/dL (70-220) *H 226mg/dL (70-220) H 156mg/dL (70-220) 149mg/dL (70-220) Test 08/26/16 11:56 Bedside Glucose 219mg/dL (70-220) Results Result Diagram: 08/26/16 0520 08/26/16 0520 Results 24 hrs Laboratory Tests Test 08/25/16 14:17 08/25/16 21:13 08/25/16 21:37 08/26/16 01:47 Bedside Glucose 416 *H 409 *H 226 H Glucose Level 386 #H Test 08/26/16 05:14 08/26/16 05:20 08/26/16 08:06 08/26/16 11:56 Bedside Glucose 156 149 219 White Blood Count 13.0 #H Red Blood Count 3.32 L Hemoglobin 10.2 L Hematocrit 30.1 L Mean Corpuscular Volume 90.7 Mean Corpuscular Hemoglobin 30.7 Mean Corpuscular Hemoglobin Concent 33.9 Red Cell Distribution Width 18.9 H Platelet Count 116 L Mean Platelet Volume 9.7 Neutrophils % 89.1 H Lymphocytes % 5.6 L Monocytes % 3.9 Eosinophils % 0.1 Basophils % 0.1 Nucleated Red Blood Cells % 0.2 H Neutrophils # 11.6 H Lymphocytes # 0.7 L Monocytes # 0.5 Eosinophils # 0.0 Basophils # 0.0 Nucleated Red Blood Cells # 0.0 Sodium Level 133 L Potassium Level 4.2 Chloride Level 104 Carbon Dioxide Level 26 Anion Gap 7 L Blood Urea Nitrogen 18 Creatinine 0.39 L Glucose Level 161 # Calcium Level 7.1 L Medications Medications Current Medications Diltiazem HCl (Cardizem Iv) 5 mg Q6H PRN IV ELEVATED HEART RATE; Start 08/10/16 at 03:45 Miscellaneous Information 1 ea NOTE XX ; Start 08/10/16 at 03:45 Glucose (Glutose) 15 gm Q15M PRN PO DECREASED GLUCOSE; Start 08/10/16 at 03:45 Glucose (Glutose) 22.5 gm Q15M PRN PO DECREASED GLUCOSE; Start 08/10/16 at 03:45 Dextrose (D50w Syringe) 25 ml Q15M PRN IV DECREASED GLUCOSE; Start 08/10/16 at 03:45 Dextrose (D50w Syringe) 50 ml Q15M PRN IV DECREASED GLUCOSE; Start 08/10/16 at 03:45 Glucagon (Glucagen) 1 mg Q15M PRN IM DECREASED GLUCOSE; Start 08/10/16 at 03:45 Glucose (Glutose) 15 gm Q15M PRN BUCCAL DECREASED GLUCOSE; Start 08/10/16 at 03: 45 Miscellaneous Information [facility] This patient melendez... PRN PRN XX WOUND CARE; Start 08/10/16 at 12:00 Metoprolol Tartrate 5 mg 5 mg Q4H PRN IV hr>110 hold sbp<100; Start 08/10/16 at 14:30 Ceftriaxone Sodium (Rocephin) 50 ml @ 100 mls/hr Q24H IVPB Last administered on 08/25/16 21:26; Admin Dose 100 MLS/HR; Start 08/14/16 at 20:00 Zolpidem Tartrate (Ambien) 5 mg HS PRN PO INSOMNIA Last administered on 23:11; Admin Dose 5 MG; Start 08/18/16 at 22:00 Amiodarone HCl (Cordarone) 200 mg DAILY PO Last administered on 08/25/16 09:26 ; Admin Dose 200 MG; Start 08/20/16 at 09:00 Pantoprazole (Protonix Tab) 40 mg DAILY@06 PO Last administered on 08/26/16 05 :17; Admin Dose 40 MG; Start 08/20/16 at 06:00 Metoprolol Tartrate (Lopressor) 12.5 mg BID PO Last administered on 08/25/16 09:26; Admin Dose 12.5 MG; Start 08/20/16 at 21:00 Acetaminophen (Tylenol Supp) 650 mg Q6H PRN [place] FEVER; Start 08/20/16 at 15:00 Acetaminophen/ Hydrocodone Bitart ([place] (5/325)) 1 tab Q6H PRN PO PAIN LEVEL 7 -10 Last administered on 08/25/16 00:20; Admin Dose 1 TAB; Start 08/20/16 at 13 :53 Acetaminophen (Tylenol Tab) 650 mg Q4H PRN PO PAIN AND OR ELEVATED TEMP; Start 08/20/16 at 13:54 Sodium Chloride (Nacl) 1 gm TID PO Last administered on 08/26/16 08:13; Admin Dose 1 GM; Start 08/20/16 at 21:00 Lorazepam (Ativan) 0.5 mg Q6H PRN PO ANXIETY; Start 08/21/16 at 16:30 Dexamethasone (Decadron) 4 mg Q8 PO Last administered on 08/25/16 13:59; Admin Dose 4 MG; Start 08/22/16 at 14:00 Insulin Glargine (Lantus) 16 unit DAILY@20 SC Last administered on 08/25/16 21 :31; Admin Dose 16 UNIT; Start 08/23/16 at 20:00 Hydralazine HCl (Apresoline) 25 mg BID PO Last administered on 08/26/16 08:14 ; Admin Dose 25 MG; Start 08/25/16 at 09:30 Insulin Human NPH (Humulin N) 6 unit Q8 SC ; Start 08/26/16 at 14:00 NANCY MEDEROS MD Aug 26, 2016 13:14
[2016-08-26] MEDS: NPH, HUMAN INSULIN ISOPHANE 3ML VIAL SC SCH ×2 (14:18→21:26)
--- NOTE | 2016-08-26 14:47 | PN ---
DATE: 08/26/2016 SUBJECTIVE: Metastatic prostate cancer, hyponatremia, and difficulty ambulating. The patient, soy santo, today denies having any pain. He is comfortable, and he does urinate sometime in the urinal an d sometimes in the bedside commode. OBJECTIVE VITAL SIGNS: His temperature is 98.0, blood pressure 134/64, pulse is 56, respiration 18. ABDOMEN: Soft. There is no abdominal mass palpable. The bladder is not distended. EXTREMITIES: Normal. He does have dressings over his knees to avoid pressure ulcers. LABORATORY DATA: CBC shows a white count of 13.0, hemoglobin 10.2, hematocrit 30.1. BUN is 18, cre atinine 0.39. Electrolytes: Sodium 133, potassium 4.2, chloride 104, CO2 26. PT is 15.5. INR is 1.22. Urine culture has been negative. IMPRESSION AND PLAN: Metastatic prostate cancer. The patient has already received 7.5 mg leuprolid e acetate. I gave it to him on 08/14/2016. That is good for 1 month. He already also got Willie Sinclair. The plan is to continue to monitor him, and once he is discharged, then we will resume also his Lupron injections. If he goes home, we will do it in the office. If he, however, goes to a prison, they will continue it in the prison. Dictated By: ANGELA GRANT/CHERRY Conf#: [id number] DID#: [id number]
[2016-08-26] MEDS: INSULIN ASPART [NOVOLOG] 3 ML PEN SC SCH (17:14)
[2016-08-26] MEDS: INSULIN GLARGINE [LANtus] 3 ML PEN SC SCH (20:28)
[2016-08-26] MEDS: CEFTRIAXONE 1 GM/50 ML (PMX) 50 ML IVPB SCH (20:30)
[2016-08-26 20:32] VITALS: BP_SYST 138; BP_SYST 16; BP_DIAS 63; PULSE 63; RESP 18
--- NOTE | 2016-08-26 21:12 | CONS ---
Date/Time of Note Date/Time of Note DATE: 08/26/16 TIME: 21:09 Assessment/Plan Assessment/Plan Additional Assessment/Plan 1. Severe hyponatremia with a sodium 114 on admission. 2. Acute metabolic encephalopathy and fall at home secondary to severe hyponatremia. 3. Hypovolemic hyponatremia versus syndrome of inappropriate diuretic hormone. 4. Hypertension. 5. Hyperlipidemia. 6. History of prostate carcinoma. 7. History of diabetes mellitus. 8. History of bilateral knee arthritis. 9. Anemia, Iron deficiency,iron sat 16%, normal ferritin Plan: S/p 3 % saline,and S/p one dose of tolvaptan 15 gram PO x 1 dose before- another dose of tolvaptan 15mg on 08/21/16- Na 133 today D/c lotensin due to hyperkalemia yesterday, today K stable on Na chloride table 1 gram PO TID Cr normal, will continue to follow up Consultation Date/Type/Reason Admit Date/Time Aug 09, 2016 at 23:11 Type of Consultation: NEPHROLOGY Referring Provider: BIBIANA DUKE 24 HR Interval Summary Free Text/Dictation Na 133 today Exam/Review of Systems Vital Signs Vitals Vital Signs Date Time Temp Pulse Resp B/P Pulse Ox O2 Delivery O2 Flow Rate FiO2 08/26/16 20:32 98.4 63 18 16/ 97 Intake and Output 08/25/16 08/25/16 08/26/16 15:00 23:00 07:00 Intake Total 770 ml 300 ml Balance 770 ml 300 ml Exam Constitutional: alert, frail, oriented Psych: no complaints Head: normocephalic Eyes: nl conjunctiva ENMT: nl external ears & nose Neck: non-tender, supple Respiratory: clear to auscultation Cardiovascular: regular rate and rhythm Musculoskeletal: nl extremities to inspection Results Result Diagram: 08/26/16 0520 08/26/16 0520 Results 24 hrs Laboratory Tests Test 08/25/16 21:13 08/25/16 21:37 08/26/16 01:47 08/26/16 05:14 Bedside Glucose 409 *H 226 H 156 Glucose Level 386 #H Test 08/26/16 05:20 08/26/16 08:06 08/26/16 11:56 08/26/16 14:11 White Blood Count 13.0 #H Red Blood Count 3.32 L Hemoglobin 10.2 L Hematocrit 30.1 L Mean Corpuscular Volume 90.7 Mean Corpuscular Hemoglobin 30.7 Mean Corpuscular Hemoglobin Concent 33.9 Red Cell Distribution Width 18.9 H Platelet Count 116 L Mean Platelet Volume 9.7 Neutrophils % 89.1 H Lymphocytes % 5.6 L Monocytes % 3.9 Eosinophils % 0.1 Basophils % 0.1 Nucleated Red Blood Cells % 0.2 H Neutrophils # 11.6 H Lymphocytes # 0.7 L Monocytes # 0.5 Eosinophils # 0.0 Basophils # 0.0 Nucleated Red Blood Cells # 0.0 Sodium Level 133 L Potassium Level 4.2 Chloride Level 104 Carbon Dioxide Level 26 Anion Gap 7 L Blood Urea Nitrogen 18 Creatinine 0.39 L Glucose Level 161 # Calcium Level 7.1 L Bedside Glucose 149 219 233 H Test 08/26/16 17:11 08/26/16 20:26 Bedside Glucose 256 H 257 H Medications Medications Current Medications Diltiazem HCl (Cardizem Iv) 5 mg Q6H PRN IV ELEVATED HEART RATE; Start 08/10/16 at 03:45 Miscellaneous Information 1 ea NOTE XX ; Start 08/10/16 at 03:45 Glucose (Glutose) 15 gm Q15M PRN PO DECREASED GLUCOSE; Start 08/10/16 at 03:45 Glucose (Glutose) 22.5 gm Q15M PRN PO DECREASED GLUCOSE; Start 08/10/16 at 03:45 Dextrose (D50w Syringe) 25 ml Q15M PRN IV DECREASED GLUCOSE; Start 08/10/16 at 03:45 Dextrose (D50w Syringe) 50 ml Q15M PRN IV DECREASED GLUCOSE; Start 08/10/16 at 03:45 Glucagon (Glucagen) 1 mg Q15M PRN IM DECREASED GLUCOSE; Start 08/10/16 at 03:45 Glucose (Glutose) 15 gm Q15M PRN BUCCAL DECREASED GLUCOSE; Start 08/10/16 at 03: 45 Miscellaneous Information (Pending [facility] Order For Wound Care) This patient melendez... PRN PRN XX WOUND CARE; Start 08/10/16 at 12:00 Metoprolol Tartrate 5 mg 5 mg Q4H PRN IV hr>110 hold sbp<100; Start 08/10/16 at 14:30 Ceftriaxone Sodium (Rocephin) 50 ml @ 100 mls/hr Q24H IVPB Last administered on 08/26/16 20:30; Admin Dose 100 MLS/HR; Start 08/14/16 at 20:00 Zolpidem Tartrate (Ambien) 5 mg HS PRN PO INSOMNIA Last administered on 23:11; Admin Dose 5 MG; Start 08/18/16 at 22:00 Amiodarone HCl (Cordarone) 200 mg DAILY PO Last administered on 08/25/16 09:26 ; Admin Dose 200 MG; Start 08/20/16 at 09:00 Pantoprazole (Protonix Tab) 40 mg DAILY@06 PO Last administered on 08/26/16 05 :17; Admin Dose 40 MG; Start 08/20/16 at 06:00 Metoprolol Tartrate (Lopressor) 12.5 mg BID PO Last administered on 08/26/16 20:31; Admin Dose 12.5 MG; Start 08/20/16 at 21:00 Acetaminophen (Tylenol Supp) 650 mg Q6H PRN [place] FEVER; Start 08/20/16 at 15:00 Acetaminophen/ Hydrocodone Bitart ([place] (5/325)) 1 tab Q6H PRN PO PAIN LEVEL 7 -10 Last administered on 08/25/16 00:20; Admin Dose 1 TAB; Start 08/20/16 at 13 :53 Acetaminophen (Tylenol Tab) 650 mg Q4H PRN PO PAIN AND OR ELEVATED TEMP Last administered on 08/26/16 20:31; Admin Dose 650 MG; Start 08/20/16 at 13:54 Sodium Chloride (Nacl) 1 gm TID PO Last administered on 08/26/16 20:31; Admin Dose 1 GM; Start 08/20/16 at 21:00 Lorazepam (Ativan) 0.5 mg Q6H PRN PO ANXIETY; Start 08/21/16 at 16:30 Dexamethasone (Decadron) 4 mg Q8 PO Last administered on 08/26/16 14:17; Admin Dose 4 MG; Start 08/22/16 at 14:00 Insulin Glargine (Lantus) 16 unit DAILY@20 SC Last administered on 08/26/16 20 :28; Admin Dose 16 UNIT; Start 08/23/16 at 20:00 Hydralazine HCl (Apresoline) 25 mg BID PO Last administered on 08/26/16 20:30 ; Admin Dose 25 MG; Start 08/25/16 at 09:30 Insulin Human NPH (Humulin N) 6 unit Q8 SC Last administered on 08/26/16 14:18 ; Admin Dose 6 UNIT; Start 08/26/16 at 14:00 KARLENE MUÑOZ MD Aug 26, 2016 21:12
[2016-08-26] MEDS: ZOLPIDEM 5 MG TAB PO PRN (21:25)
[2016-08-27] MEDS: PANTOPRAZOLE (EC) 40 MG TAB PO SCH (05:26)
[2016-08-27] MEDS: DEXAMETHASONE 4 MG TAB PO SCH ×3 (05:49→21:33)
[2016-08-27 05:50] LABS: ADD SCAN DIFF NO
[2016-08-27] MEDS: NPH, HUMAN INSULIN ISOPHANE 3ML VIAL SC SCH (05:52)
[2016-08-27 05:56] LABS: BASOPHILS % 0.1 % (0.0-2.0); HEMATOCRIT 33.1 % (42.0-52.0); HEMOGLOBIN 10.6 g/dl (14.0-18.0); LYMPHOCYTES # 0.7 10^3/ul (0.8-2.9); LYMPHOCYTES % 5.8 % (15.0-51.0); MEAN CORPUSCULAR HEMOGLOBIN 29.4 pg (29.0-33.0); MEAN CORPUSCULAR VOLUME 91.9 fl (82.0-101.0); MEAN PLATELET VOLUME 10.7 fl (7.4-10.4); MONOCYTE # 0.6 10^3/ul (0.3-0.9); MONOCYTES % 4.8 % (0.0-11.0); NEUTROPHIL # 11.1 10^3/ul (1.6-7.5); NEUTROPHILS % 87.8 % (39.0-77.0); NUCLEATED RED BLOOD CELLS% 0.2 /100WBC (0.0-0.0); PLATELET COUNT 121 10^3/UL (140-415); RED CELL DISTRIBUTION WIDTH 19.2 % (11.5-14.5); WHITE BLOOD COUNT 12.7 10^3/ul (4.8-10.8)
[2016-08-27 06:31] LABS: CALCIUM 7.4 mg/dl (8.4-10.2); CREATININE 0.45 mg/dl (0.61-1.24); POTASSIUM 4.3 mmol/L (3.5-5.1)
[2016-08-27 07:53] VITALS: BP 130/62; RESP 16
[2016-08-27] MEDS: AMIODARONE 200 MG TAB PO SCH (08:06)
[2016-08-27] MEDS: METOPROLOL 25 MG TAB PO SCH ×2 (08:06→21:22)
[2016-08-27] MEDS: SODIUM CHLORIDE 1 GM TAB PO SCH ×3 (08:14→21:26)
[2016-08-27] MEDS: INSULIN ASPART [NOVOLOG] 3 ML PEN SC SCH ×3 (08:16→17:48)
[2016-08-27] MEDS: Insulin NOVOLOG SS MILD Algorithm (SS with meals and bedtime) SC SCH ×4 (08:16→21:31)
[2016-08-27] MEDS ORDERED: NPH, HUMAN INSULIN ISOPHANE 3ML VIAL SC SCH ×2 (14:00→22:00)
--- NOTE | 2016-08-27 14:24 | CONS ---
Date/Time of Note Date/Time of Note DATE: 08/27/16 TIME: 14:22 Assessment/Plan Assessment/Plan Chief Complaint/Hosp Course IMPRESSION: 1. Paroxysmal atrial flutter, remains in sinus rhythm at this time 2. Abnl electrocardiogram, assess for acute coronary syndrome. -negative troponin x 3 3. Congestive heart failure by chest x-ray, diastolic, likely acute on chronic. -EF normal by echo this admit 4. Hypertension under reasonable control with episodes of borderline hypotension. 5. Altered mental state/encephalopathy. 6. Hyponatremia-improved s/p dose of tolvaptan on salt tabs 7. Urinary tract infection. 8. Anemia. 9. PLeural effusions bilateral 10.Prostate ca-metastatic Recc: -Tele -Continue BB/amio as tolerated only following hold parameters -Follow rhythm closely -Follow volume status closely -Not on systemic anti-coag given anemia requiring transfusions. -Continue salt tabs -Continue lupron/decadron -Continue ACEI Problems: Consultation Date/Type/Reason Admit Date/Time Aug 09, 2016 at 23:11 Initial Consult Date 08/12/16 Type of Consultation: Cardiology Reason for Consultation PAFL Referring Provider: BIBIANA DUKE Exam/Review of Systems Vital Signs Vitals Vital Signs Date Time Temp Pulse Resp B/P Pulse Ox O2 Delivery O2 Flow Rate FiO2 08/27/16 07:53 97.6 50 16 130/62 98 Intake and Output 08/26/16 08/26/16 08/27/16 15:00 23:00 07:00 Intake Total 1010 ml 850 ml Balance 1010 ml 850 ml Exam Review of Systems: CONSTITUTIONAL: No fevers, chills. PULMONARY: No sob CARDIOVASCULAR: No chest pain/palpitations GASTROINTESTINAL: No nausea/vomiting. GENITOURINARY: No hematuria/dysuria. MUSCULOSKELETAL: No myagias/arthalgias. PSYCHIATRIC: The patient denies depression. NEUROLOGIC: lethargic Constitutional: other (sleeping) Psych: no complaints Head: normocephalic ENMT: mucosa pink and moist Neck: jvd (8-9 cm water), supple Respiratory: diminished breath sounds (at bases/B) Cardiovascular: regular rate and rhythm Gastrointestinal: non-tender, soft Musculoskeletal: muscle tone (normal) Extremities: edema (none) Neurological: other (No focal deficits) Results Result Diagram: 08/27/16 0450 08/27/16 0450 Results 24 hrs Laboratory Tests Test 08/26/16 17:11 08/26/16 20:26 08/26/16 21:24 08/27/16 01:29 Bedside Glucose 256 H 257 H 232 H 106 Test 08/27/16 04:50 08/27/16 05:23 08/27/16 05:43 08/27/16 05:57 White Blood Count 12.7 H Red Blood Count 3.60 L Hemoglobin 10.6 L Hematocrit 33.1 L Mean Corpuscular Volume 91.9 Mean Corpuscular Hemoglobin 29.4 Mean Corpuscular Hemoglobin Concent 32.0 Red Cell Distribution Width 19.2 H Platelet Count 121 L Mean Platelet Volume 10.7 H Neutrophils % 87.8 H Lymphocytes % 5.8 L Monocytes % 4.8 Eosinophils % 0.0 Basophils % 0.1 Nucleated Red Blood Cells % 0.2 H Neutrophils # 11.1 H Lymphocytes # 0.7 L Monocytes # 0.6 Eosinophils # 0.0 Basophils # 0.0 Nucleated Red Blood Cells # 0.0 Sodium Level 135 Potassium Level 4.3 Chloride Level 104 Carbon Dioxide Level 27 Anion Gap 8 Blood Urea Nitrogen 20 Creatinine 0.45 L Glucose Level 71 # Calcium Level 7.4 L Bedside Glucose 68 L 96 105 Test 08/27/16 07:52 08/27/16 11:54 08/27/16 13:10 Bedside Glucose 182 147 173 Medications Medications Current Medications Diltiazem HCl (Cardizem Iv) 5 mg Q6H PRN IV ELEVATED HEART RATE; Start 08/10/16 at 03:45 Miscellaneous Information 1 ea NOTE XX ; Start 08/10/16 at 03:45 Glucose (Glutose) 15 gm Q15M PRN PO DECREASED GLUCOSE Last administered on 08/27t 05:26; Admin Dose 15 GM; Start 08/10/16 at 03:45 Glucose (Glutose) 22.5 gm Q15M PRN PO DECREASED GLUCOSE; Start 08/10/16 at 03:45 Dextrose (D50w Syringe) 25 ml Q15M PRN IV DECREASED GLUCOSE; Start 08/10/16 at 03:45 Dextrose (D50w Syringe) 50 ml Q15M PRN IV DECREASED GLUCOSE; Start 08/10/16 at 03:45 Glucagon (Glucagen) 1 mg Q15M PRN IM DECREASED GLUCOSE; Start 08/10/16 at 03:45 Glucose (Glutose) 15 gm Q15M PRN BUCCAL DECREASED GLUCOSE; Start 08/10/16 at 03: 45 Miscellaneous Information (Pending [facility] Order For Wound Care) This patient melendez... PRN PRN XX WOUND CARE; Start 08/10/16 at 12:00 Metoprolol Tartrate 5 mg 5 mg Q4H PRN IV hr>110 hold sbp<100; Start 08/10/16 at 14:30 Ceftriaxone Sodium (Rocephin) 50 ml @ 100 mls/hr Q24H IVPB Last administered on 08/26/16 20:30; Admin Dose 100 MLS/HR; Start 08/14/16 at 20:00 Zolpidem Tartrate (Ambien) 5 mg HS PRN PO INSOMNIA Last administered on 21:25; Admin Dose 5 MG; Start 08/18/16 at 22:00 Amiodarone HCl (Cordarone) 200 mg DAILY PO Last administered on 08/25/16 09:26 ; Admin Dose 200 MG; Start 08/20/16 at 09:00 Pantoprazole (Protonix Tab) 40 mg DAILY@06 PO Last administered on 08/27/16 05 :26; Admin Dose 40 MG; Start 08/20/16 at 06:00 Metoprolol Tartrate (Lopressor) 12.5 mg BID PO Last administered on 08/26/16 20:31; Admin Dose 12.5 MG; Start 08/20/16 at 21:00 Acetaminophen (Tylenol Supp) 650 mg Q6H PRN [place] FEVER; Start 08/20/16 at 15:00 Acetaminophen/ Hydrocodone Bitart ([place] (5/325)) 1 tab Q6H PRN PO PAIN LEVEL 7 -10 Last administered on 08/25/16 00:20; Admin Dose 1 TAB; Start 08/20/16 at 13 :53 Acetaminophen (Tylenol Tab) 650 mg Q4H PRN PO PAIN AND OR ELEVATED TEMP Last administered on 08/26/16 20:31; Admin Dose 650 MG; Start 08/20/16 at 13:54 Sodium Chloride (Nacl) 1 gm TID PO Last administered on 08/27/16 13:11; Admin Dose 1 GM; Start 08/20/16 at 21:00 Lorazepam (Ativan) 0.5 mg Q6H PRN PO ANXIETY; Start 08/21/16 at 16:30 Dexamethasone (Decadron) 4 mg Q8 PO Last administered on 08/27/16 13:11; Admin Dose 4 MG; Start 08/22/16 at 14:00 Insulin Glargine (Lantus) 16 unit DAILY@20 SC Last administered on 08/26/16 20 :28; Admin Dose 16 UNIT; Start 08/23/16 at 20:00 Hydralazine HCl (Apresoline) 25 mg BID PO Last administered on 08/27/16 08:15 ; Admin Dose 25 MG; Start 08/25/16 at 09:30 Insulin Human NPH (Humulin N) 10 unit DAILY@06 SC ; Start 08/28/16 at 06:00 Insulin Human NPH (Humulin N) 10 unit DAILY@14 SC Last administered on 13:18; Admin Dose 10 UNIT; Start 08/27/16 at 14:00 Insulin Human NPH (Humulin N) 4 unit DAILY@22 SC ; Start 08/27/16 at 22:00 ROSI ROBERTSON Aug 27, 2016 14:24
--- NOTE | 2016-08-27 14:55 | PN ---
DATE: 08/27/2016 SUBJECTIVE: Metastatic prostate cancer, abdominal pain. The patient today feels comfortable. He s tates that he is content and that he has ambulated with the physical therapy and he is comfortable. He denies any pain. He also has been voiding and the urine is clear. OBJECTIVE: VITAL SIGNS: Temperature is 97.6. The blood pressure 130/62, pulse is 50, respiration is 16. ABDOMEN: Soft. There is no abdominal mass palpable or tenderness. LABORATORY DATA: CBC shows a white count of 12.7, hemoglobin 10.6, hematocrit 33.1. The BUN is 20, creatinine 0.45. Sodium 135, potassium 4.3, chloride 104, CO2 27. IMPRESSION: Metastatic prostate cancer. The patient has already received leuprolide (Lupron Depot) injection and once he is discharged he will also call my office and make an appointment so we could give him the injection again around 09/12/2016 or 09/13/2016, and I already received the Lupron Dep ot in the office to give it to him. Dictated By: ANGELA GRANT/CHERRY Conf#: [id number] DID#: [id number]
[2016-08-27] MEDS: HYDROCODONE/APAP (5/325) TAB PO PRN (16:14)
--- NOTE | 2016-08-27 17:59 | CONS ---
Date/Time of Note Date/Time of Note DATE: 08/27/16 TIME: 17:58 Assessment/Plan Assessment/Plan Additional Assessment/Plan 1. Severe hyponatremia with a sodium 114 on admission. 2. Acute metabolic encephalopathy and fall at home secondary to severe hyponatremia. 3. Hypovolemic hyponatremia versus syndrome of inappropriate diuretic hormone. 4. Hypertension. 5. Hyperlipidemia. 6. History of prostate carcinoma. 7. History of diabetes mellitus. 8. History of bilateral knee arthritis. 9. Anemia, Iron deficiency,iron sat 16%, normal ferritin Plan: S/p 3 % saline,and S/p one dose of tolvaptan 15 gram PO x 1 dose before- another dose of tolvaptan 15mg on 08/21/16- Na normal D/c lotensin due to hyperkalemia on saturday, today K stable on Na chloride table 1 gram PO TID Cr normal, will continue to follow up Consultation Date/Type/Reason Admit Date/Time Aug 09, 2016 at 23:11 Type of Consultation: NEPHROLOGY Referring Provider: BIBIANA DUKE Exam/Review of Systems Vital Signs Vitals Vital Signs Date Time Temp Pulse Resp B/P Pulse Ox O2 Delivery O2 Flow Rate FiO2 08/27/16 07:53 97.6 50 16 130/62 98 Intake and Output 08/26/16 08/26/16 08/27/16 15:00 23:00 07:00 Intake Total 1010 ml 850 ml Balance 1010 ml 850 ml Exam Constitutional: alert, frail, oriented Psych: no complaints Head: normocephalic Eyes: nl conjunctiva ENMT: nl external ears & nose Neck: non-tender, supple Respiratory: clear to auscultation Cardiovascular: regular rate and rhythm Musculoskeletal: nl extremities to inspection Results Result Diagram: 08/27/16 0450 08/27/16 0450 Results 24 hrs Laboratory Tests Test 08/26/16 20:26 08/26/16 21:24 08/27/16 01:29 08/27/16 04:50 Bedside Glucose 257 H 232 H 106 White Blood Count 12.7 H Red Blood Count 3.60 L Hemoglobin 10.6 L Hematocrit 33.1 L Mean Corpuscular Volume 91.9 Mean Corpuscular Hemoglobin 29.4 Mean Corpuscular Hemoglobin Concent 32.0 Red Cell Distribution Width 19.2 H Platelet Count 121 L Mean Platelet Volume 10.7 H Neutrophils % 87.8 H Lymphocytes % 5.8 L Monocytes % 4.8 Eosinophils % 0.0 Basophils % 0.1 Nucleated Red Blood Cells % 0.2 H Neutrophils # 11.1 H Lymphocytes # 0.7 L Monocytes # 0.6 Eosinophils # 0.0 Basophils # 0.0 Nucleated Red Blood Cells # 0.0 Sodium Level 135 Potassium Level 4.3 Chloride Level 104 Carbon Dioxide Level 27 Anion Gap 8 Blood Urea Nitrogen 20 Creatinine 0.45 L Glucose Level 71 # Calcium Level 7.4 L Test 08/27/16 05:23 08/27/16 05:43 08/27/16 05:57 08/27/16 07:52 Bedside Glucose 68 L 96 105 182 Test 08/27/16 11:54 08/27/16 13:10 08/27/16 17:16 Bedside Glucose 147 173 141 Medications Medications Current Medications Diltiazem HCl (Cardizem Iv) 5 mg Q6H PRN IV ELEVATED HEART RATE; Start 08/10/16 at 03:45 Miscellaneous Information 1 ea NOTE XX ; Start 08/10/16 at 03:45 Glucose (Glutose) 15 gm Q15M PRN PO DECREASED GLUCOSE Last administered on 08/27t 05:26; Admin Dose 15 GM; Start 08/10/16 at 03:45 Glucose (Glutose) 22.5 gm Q15M PRN PO DECREASED GLUCOSE; Start 08/10/16 at 03:45 Dextrose (D50w Syringe) 25 ml Q15M PRN IV DECREASED GLUCOSE; Start 08/10/16 at 03:45 Dextrose (D50w Syringe) 50 ml Q15M PRN IV DECREASED GLUCOSE; Start 08/10/16 at 03:45 Glucagon (Glucagen) 1 mg Q15M PRN IM DECREASED GLUCOSE; Start 08/10/16 at 03:45 Glucose (Glutose) 15 gm Q15M PRN BUCCAL DECREASED GLUCOSE; Start 08/10/16 at 03: 45 Miscellaneous Information (Pending [facility] Order For Wound Care) This patient melendez... PRN PRN XX WOUND CARE; Start 08/10/16 at 12:00 Metoprolol Tartrate 5 mg 5 mg Q4H PRN IV hr>110 hold sbp<100; Start 08/10/16 at 14:30 Ceftriaxone Sodium (Rocephin) 50 ml @ 100 mls/hr Q24H IVPB Last administered on 08/26/16 20:30; Admin Dose 100 MLS/HR; Start 08/14/16 at 20:00 Zolpidem Tartrate (Ambien) 5 mg HS PRN PO INSOMNIA Last administered on 21:25; Admin Dose 5 MG; Start 08/18/16 at 22:00 Amiodarone HCl (Cordarone) 200 mg DAILY PO Last administered on 08/25/16 09:26 ; Admin Dose 200 MG; Start 08/20/16 at 09:00 Pantoprazole (Protonix Tab) 40 mg DAILY@06 PO Last administered on 08/27/16 05 :26; Admin Dose 40 MG; Start 08/20/16 at 06:00 Metoprolol Tartrate (Lopressor) 12.5 mg BID PO Last administered on 08/26/16 20:31; Admin Dose 12.5 MG; Start 08/20/16 at 21:00 Acetaminophen (Tylenol Supp) 650 mg Q6H PRN [place] FEVER; Start 08/20/16 at 15:00 Acetaminophen/ Hydrocodone Bitart ([place] (5/325)) 1 tab Q6H PRN PO PAIN LEVEL 7 -10 Last administered on 08/27/16 16:14; Admin Dose 1 TAB; Start 08/20/16 at 13 :53 Acetaminophen (Tylenol Tab) 650 mg Q4H PRN PO PAIN AND OR ELEVATED TEMP Last administered on 08/26/16 20:31; Admin Dose 650 MG; Start 08/20/16 at 13:54 Sodium Chloride (Nacl) 1 gm TID PO Last administered on 08/27/16 13:11; Admin Dose 1 GM; Start 08/20/16 at 21:00 Lorazepam (Ativan) 0.5 mg Q6H PRN PO ANXIETY; Start 08/21/16 at 16:30 Dexamethasone (Decadron) 4 mg Q8 PO Last administered on 08/27/16 13:11; Admin Dose 4 MG; Start 08/22/16 at 14:00 Insulin Glargine (Lantus) 16 unit DAILY@20 SC Last administered on 08/26/16 20 :28; Admin Dose 16 UNIT; Start 08/23/16 at 20:00 Hydralazine HCl (Apresoline) 25 mg BID PO Last administered on 08/27/16 08:15 ; Admin Dose 25 MG; Start 08/25/16 at 09:30 Insulin Human NPH (Humulin N) 10 unit DAILY@06 SC ; Start 08/28/16 at 06:00 Insulin Human NPH (Humulin N) 10 unit DAILY@14 SC Last administered on 13:18; Admin Dose 10 UNIT; Start 08/27/16 at 14:00 Insulin Human NPH (Humulin N) 4 unit DAILY@22 SC ; Start 08/27/16 at 22:00 KARLENE MUÑOZ MD Aug 27, 2016 17:59
--- NOTE | 2016-08-27 18:05 | CONS ---
Date/Time of Note Date/Time of Note DATE: 08/27/16 TIME: 18:02 Assessment/Plan Assessment/Plan Problems: (1) Type 2 diabetes mellitus with hyperglycemia Status: Chronic Comment: Mild hypoglycemia O/N. For reasons difficult to understand, pt. seems to require different insulin doses for decadron at different times of day. Will increase am and midday NPH to 10 units and decrease O/N dose of insulin to 4 units. O/W FS seem to be improved. No changes to lantus or novolog. Consultation Date/Type/Reason Admit Date/Time Aug 09, 2016 at 23:11 Initial Consult Date 08/25/16 Type of Consultation: Endocrinology Reason for Consultation T2DM OOC Referring Provider: BIBIANA DUKE 24 HR Interval Summary Constitutional: improved, no complaints Detailed Summary Respiratory: no complaints Cardiovascular: no complaints Gastrointestinal: no complaints Genitourinary: no complaints Musculoskeletal: back pain (mild) Neurologic: no complaints Exam/Review of Systems Vital Signs Vitals VS - Last 72 Hours, by Label Date Time Temp Pulse Resp B/P Pulse Ox O2 Delivery O2 Flow Rate FiO2 08/27/16 07:53 97.6 50 16 130/62 98 08/26/16 20:32 98.4 63 18 138/63 97 08/26/16 20:32 63 138/63 08/26/16 08:02 98.0 56 18 134/64 98 08/25/16 20:00 97.6 57 18 139/63 94 08/25/16 07:30 98.8 56 18 143/63 96 08/24/16 20:32 98.5 63 16 125/57 96 Vital Signs Date Time Temp Pulse Resp B/P Pulse Ox O2 Delivery O2 Flow Rate FiO2 08/27/16 07:53 97.6 50 16 130/62 98 Intake and Output 08/26/16 08/26/16 08/27/16 15:00 23:00 07:00 Intake Total 1010 ml 850 ml Balance 1010 ml 850 ml Exam Constitutional: alert, oriented, well developed Respiratory: clear to auscultation, normal air movement Cardiovascular: nl pulses, regular rate and rhythm, No edema, No murmurs/extra sounds, No rub Gastrointestinal: bowel sounds, nl liver, spleen, non-tender, soft, No mass, No rebound or guarding Musculoskeletal: nl extremities to inspection Extremities: normal pulses, No clubbing, No cyanosis, No edema Neurological: [employer]ITY [employer]IST II-XII intact, nl mental status, nl speech, nl strength Additional Comments Bedside Glucose - 72 Hours Test 08/24/16 21:08 08/25/16 01:51 08/25/16 05:25 08/25/16 08:00 Bedside Glucose 338mg/dL (70-220) H 199mg/dL (70-220) 111mg/dL (70-220) 85mg/dL (70-220) Test 08/25/16 12:19 08/25/16 14:17 08/25/16 17:45 08/25/16 21:11 Bedside Glucose 371mg/dL (70-220) H 416mg/dL (70-220) *H 370mg/dL (70-220) H 429mg/dL (70-220) *H Test 08/25/16 21:13 08/25/16 22:58 08/25/16 23:00 08/26/16 01:47 Bedside Glucose 409mg/dL (70-220) *H 361mg/dL (70-220) H 359mg/dL (70-220) H 226mg/dL (70-220) H Test 08/26/16 05:14 08/26/16 08:06 08/26/16 11:56 08/26/16 14:11 Bedside Glucose 156mg/dL (70-220) 149mg/dL (70-220) 219mg/dL (70-220) 233mg/dL (70-220) H Test 08/26/16 17:11 08/26/16 20:26 08/26/16 21:24 08/27/16 01:29 Bedside Glucose 256mg/dL (70-220) H 257mg/dL (70-220) H 232mg/dL (70-220) H 106mg/dL (70-220) Test 08/27/16 05:23 08/27/16 05:43 08/27/16 05:57 08/27/16 07:52 Bedside Glucose 68mg/dL (70-220) L 96mg/dL (70-220) 105mg/dL (70-220) 182mg/dL (70-220) Test 08/27/16 11:54 08/27/16 13:10 08/27/16 17:16 Bedside Glucose 147mg/dL (70-220) 173mg/dL (70-220) 141mg/dL (70-220) Results Result Diagram: 08/27/16 0450 08/27/16 0450 Results 24 hrs Laboratory Tests Test 08/26/16 20:26 08/26/16 21:24 08/27/16 01:29 08/27/16 04:50 Bedside Glucose 257 H 232 H 106 White Blood Count 12.7 H Red Blood Count 3.60 L Hemoglobin 10.6 L Hematocrit 33.1 L Mean Corpuscular Volume 91.9 Mean Corpuscular Hemoglobin 29.4 Mean Corpuscular Hemoglobin Concent 32.0 Red Cell Distribution Width 19.2 H Platelet Count 121 L Mean Platelet Volume 10.7 H Neutrophils % 87.8 H Lymphocytes % 5.8 L Monocytes % 4.8 Eosinophils % 0.0 Basophils % 0.1 Nucleated Red Blood Cells % 0.2 H Neutrophils # 11.1 H Lymphocytes # 0.7 L Monocytes # 0.6 Eosinophils # 0.0 Basophils # 0.0 Nucleated Red Blood Cells # 0.0 Sodium Level 135 Potassium Level 4.3 Chloride Level 104 Carbon Dioxide Level 27 Anion Gap 8 Blood Urea Nitrogen 20 Creatinine 0.45 L Glucose Level 71 # Calcium Level 7.4 L Test 08/27/16 05:23 08/27/16 05:43 08/27/16 05:57 08/27/16 07:52 Bedside Glucose 68 L 96 105 182 Test 08/27/16 11:54 08/27/16 13:10 08/27/16 17:16 Bedside Glucose 147 173 141 Medications Medications Current Medications Diltiazem HCl (Cardizem Iv) 5 mg Q6H PRN IV ELEVATED HEART RATE; Start 08/10/16 at 03:45 Miscellaneous Information 1 ea NOTE XX ; Start 08/10/16 at 03:45 Glucose (Glutose) 15 gm Q15M PRN PO DECREASED GLUCOSE Last administered on 08/27t 05:26; Admin Dose 15 GM; Start 08/10/16 at 03:45 Glucose (Glutose) 22.5 gm Q15M PRN PO DECREASED GLUCOSE; Start 08/10/16 at 03:45 Dextrose (D50w Syringe) 25 ml Q15M PRN IV DECREASED GLUCOSE; Start 08/10/16 at 03:45 Dextrose (D50w Syringe) 50 ml Q15M PRN IV DECREASED GLUCOSE; Start 08/10/16 at 03:45 Glucagon (Glucagen) 1 mg Q15M PRN IM DECREASED GLUCOSE; Start 08/10/16 at 03:45 Glucose (Glutose) 15 gm Q15M PRN BUCCAL DECREASED GLUCOSE; Start 08/10/16 at 03: 45 Miscellaneous Information (Pending [facility] Order For Wound Care) This patient melendez... PRN PRN XX WOUND CARE; Start 08/10/16 at 12:00 Metoprolol Tartrate 5 mg 5 mg Q4H PRN IV hr>110 hold sbp<100; Start 08/10/16 at 14:30 Ceftriaxone Sodium (Rocephin) 50 ml @ 100 mls/hr Q24H IVPB Last administered on 08/26/16 20:30; Admin Dose 100 MLS/HR; Start 08/14/16 at 20:00 Zolpidem Tartrate (Ambien) 5 mg HS PRN PO INSOMNIA Last administered on 21:25; Admin Dose 5 MG; Start 08/18/16 at 22:00 Amiodarone HCl (Cordarone) 200 mg DAILY PO Last administered on 08/25/16 09:26 ; Admin Dose 200 MG; Start 08/20/16 at 09:00 Pantoprazole (Protonix Tab) 40 mg DAILY@06 PO Last administered on 08/27/16 05 :26; Admin Dose 40 MG; Start 08/20/16 at 06:00 Metoprolol Tartrate (Lopressor) 12.5 mg BID PO Last administered on 08/26/16 20:31; Admin Dose 12.5 MG; Start 08/20/16 at 21:00 Acetaminophen (Tylenol Supp) 650 mg Q6H PRN [place] FEVER; Start 08/20/16 at 15:00 Acetaminophen/ Hydrocodone Bitart ([place] (5/325)) 1 tab Q6H PRN PO PAIN LEVEL 7 -10 Last administered on 08/27/16 16:14; Admin Dose 1 TAB; Start 08/20/16 at 13 :53 Acetaminophen (Tylenol Tab) 650 mg Q4H PRN PO PAIN AND OR ELEVATED TEMP Last administered on 08/26/16 20:31; Admin Dose 650 MG; Start 08/20/16 at 13:54 Sodium Chloride (Nacl) 1 gm TID PO Last administered on 08/27/16 13:11; Admin Dose 1 GM; Start 08/20/16 at 21:00 Lorazepam (Ativan) 0.5 mg Q6H PRN PO ANXIETY; Start 08/21/16 at 16:30 Dexamethasone (Decadron) 4 mg Q8 PO Last administered on 08/27/16 13:11; Admin Dose 4 MG; Start 08/22/16 at 14:00 Insulin Glargine (Lantus) 16 unit DAILY@20 SC Last administered on 08/26/16 20 :28; Admin Dose 16 UNIT; Start 08/23/16 at 20:00 Hydralazine HCl (Apresoline) 25 mg BID PO Last administered on 08/27/16 08:15 ; Admin Dose 25 MG; Start 08/25/16 at 09:30 Insulin Human NPH (Humulin N) 10 unit DAILY@06 SC ; Start 08/28/16 at 06:00 Insulin Human NPH (Humulin N) 10 unit DAILY@14 SC Last administered on 13:18; Admin Dose 10 UNIT; Start 08/27/16 at 14:00 Insulin Human NPH (Humulin N) 4 unit DAILY@22 SC ; Start 08/27/16 at 22:00 NANCY MEDEROS MD Aug 27, 2016 18:05
[2016-08-27 20:35] VITALS: BP 126/59; RESP 16
[2016-08-27] MEDS: CEFTRIAXONE 1 GM/50 ML (PMX) 50 ML IVPB SCH (21:21)
[2016-08-27] MEDS: INSULIN GLARGINE [LANtus] 3 ML PEN SC SCH (21:30)
[2016-08-27] MEDS: ZOLPIDEM 5 MG TAB PO PRN (21:39)
[2016-08-28] MEDS ORDERED: NPH, HUMAN INSULIN ISOPHANE 3ML VIAL SC SCH (06:00)
[2016-08-28] MEDS: DEXAMETHASONE 4 MG TAB PO SCH (06:08)
[2016-08-28] MEDS: PANTOPRAZOLE (EC) 40 MG TAB PO SCH (06:08)
[2016-08-28] MEDS: Insulin NOVOLOG SS MILD Algorithm (SS with meals and bedtime) SC SCH ×2 (07:30→13:19)
[2016-08-28] MEDS: INSULIN ASPART [NOVOLOG] 3 ML PEN SC SCH ×2 (08:26→13:18)
[2016-08-28] MEDS: SODIUM CHLORIDE 1 GM TAB PO SCH (08:26)
[2016-08-28 08:31] VITALS: BP 145/64; RESP 19
[2016-08-28] MEDS: METOPROLOL 25 MG TAB PO SCH (08:31)
[2016-08-28] MEDS: AMIODARONE 200 MG TAB PO SCH (08:33)
--- NOTE | 2016-08-28 08:47 | CONS ---
Date/Time of Note Date/Time of Note DATE: 08/28/16 TIME: 08:46 Assessment/Plan Assessment/Plan Additional Assessment/Plan 1. Paroxysmal atrial flutter, remains in sinus rhythm at this time - off tele, sinus by exam. 2. Abnl electrocardiogram, assess for acute coronary syndrome. -negative troponin x 3 3. Congestive heart failure by chest x-ray, diastolic, likely acute on chronic. -EF normal by echo this admit - no CP noted. 4. Hypertension under reasonable control with episodes of borderline hypotension- better, on med rx. 5. Altered mental state/encephalopathy. 6. Hyponatremia-improved s/p dose of tolvaptan on salt tabs 7. Urinary tract infection- Rx with anti-bx 8. Anemia.- H/H stable 9. PLeural effusions bilateral - pulm team follows 10.Prostate ca-metastatic Consultation Date/Type/Reason Admit Date/Time Aug 09, 2016 at 23:11 Type of Consultation: Endocrinology Referring Provider: BIBIANA DUKE 24 HR Interval Summary Free Text/Dictation No acute events - off tele now - comfortable - plan for dispo in place - possibly today to SNF ROS: No fever, no chills, no nausea, no vomiting, no diarrhea/constipation No recent weight changes No chest pain, no PND, no orthopnea No dizziness, blurred vision No thirst, no heat or cold intolerance Exam/Review of Systems Vital Signs Vitals Vital Signs Date Time Temp Pulse Resp B/P Pulse Ox O2 Delivery O2 Flow Rate FiO2 08/28/16 08:31 98.3 50 19 145/64 97 Intake and Output 08/27/16 08/27/16 08/28/16 15:00 23:00 07:00 Intake Total 1290 ml 400 ml Output Total 1200 ml Balance 1290 ml -800 ml Exam General: WN/WD/NAD, AOx 3 [place] HEENT: Unicetric/atraumatic/EOMI (follow commands) NECK: JVD elevated, no thyromegaly Lymph: no lymphadenopathy HEART: regular with no S3, II/ systolic murmur at apex LUNGS: Coarse sounds ABD: soft, NT, ND, +BS : Intact Neuro: non focal SKIN: chronic changes EXT: trace edema Results Result Diagram: 08/27/1644908/27/16 045 Results 24 hrs Laboratory Tests Test 08/27/16 11:54 08/27/16 13:10 08/27/16 17:16 08/27/16 21:27 Bedside Glucose 147 173 141 228 H Test 08/27/16 22:53 08/28/16 02:26 08/28/16 05:47 08/28/16 08:06 Bedside Glucose 172 140 153 137 Medications Medications Current Medications Diltiazem HCl (Cardizem Iv) 5 mg Q6H PRN IV ELEVATED HEART RATE; Start 08/10/16 at 03:45 Miscellaneous Information 1 ea NOTE XX ; Start 08/10/16 at 03:45 Glucose (Glutose) 15 gm Q15M PRN PO DECREASED GLUCOSE Last administered on 08/27 05:26; Admin Dose 15 GM; Start 08/10/16 at 03:45 Glucose (Glutose) 22.5 gm Q15M PRN PO DECREASED GLUCOSE; Start 08/10/16 at 03:45 Dextrose (D50w Syringe) 25 ml Q15M PRN IV DECREASED GLUCOSE; Start 08/10/16 at 03:45 Dextrose (D50w Syringe) 50 ml Q15M PRN IV DECREASED GLUCOSE; Start 08/10/16 at 03:45 Glucagon (Glucagen) 1 mg Q15M PRN IM DECREASED GLUCOSE; Start 08/10/16 at 03:45 Glucose (Glutose) 15 gm Q15M PRN BUCCAL DECREASED GLUCOSE; Start 08/10/16 at 03: 45 Miscellaneous Information (Pending [facility] Order For Wound Care) This patient melendez... PRN PRN XX WOUND CARE; Start 08/10/16 at 12:00 Metoprolol Tartrate 5 mg 5 mg Q4H PRN IV hr>110 hold sbp<100; Start 08/10/16 at 14:30 Ceftriaxone Sodium (Rocephin) 50 ml @ 100 mls/hr Q24H IVPB Last administered on 08/27/16 21:21; Admin Dose 100 MLS/HR; Start 08/14/16 at 20:00 Zolpidem Tartrate (Ambien) 5 mg HS PRN PO INSOMNIA Last administered on 21:39; Admin Dose 5 MG; Start 08/18/16 at 22:00 Amiodarone HCl (Cordarone) 200 mg DAILY PO Last administered on 08/25/16 09:26 ; Admin Dose 200 MG; Start 08/20/16 at 09:00 Pantoprazole (Protonix Tab) 40 mg DAILY@06 PO Last administered on 08/28/16 06 :08; Admin Dose 40 MG; Start 08/20/16 at 06:00 Metoprolol Tartrate (Lopressor) 12.5 mg BID PO Last administered on 08/27/16 21:22; Admin Dose 12.5 MG; Start 08/20/16 at 21:00 Acetaminophen (Tylenol Supp) 650 mg Q6H PRN [place] FEVER; Start 08/20/16 at 15:00 Acetaminophen/ Hydrocodone Bitart ([place] (5/325)) 1 tab Q6H PRN PO PAIN LEVEL 7 -10 Last administered on 08/27/16 16:14; Admin Dose 1 TAB; Start 08/20/16 at 13 :53 Acetaminophen (Tylenol Tab) 650 mg Q4H PRN PO PAIN AND OR ELEVATED TEMP Last administered on 08/26/16 20:31; Admin Dose 650 MG; Start 08/20/16 at 13:54 Sodium Chloride (Nacl) 1 gm TID PO Last administered on 08/28/16 08:26; Admin Dose 1 GM; Start 08/20/16 at 21:00 Lorazepam (Ativan) 0.5 mg Q6H PRN PO ANXIETY; Start 08/21/16 at 16:30 Dexamethasone (Decadron) 4 mg Q8 PO Last administered on 08/28/16 06:08; Admin Dose 4 MG; Start 08/22/16 at 14:00 Insulin Glargine (Lantus) 16 unit DAILY@20 SC Last administered on 08/27/16 21 :30; Admin Dose 16 UNIT; Start 08/23/16 at 20:00 Hydralazine HCl (Apresoline) 25 mg BID PO Last administered on 08/28/16 08:29 ; Admin Dose 25 MG; Start 08/25/16 at 09:30 Insulin Human NPH (Humulin N) 10 unit DAILY@06 SC Last administered on 06:09; Admin Dose 10 UNIT; Start 08/28/16 at 06:00 Insulin Human NPH (Humulin N) 10 unit DAILY@14 SC Last administered on 13:18; Admin Dose 10 UNIT; Start 08/27/16 at 14:00 Insulin Human NPH (Humulin N) 4 unit DAILY@22 SC Last administered on t 22:57; Admin Dose 4 UNIT; Start 08/27/16 at 22:00 KIT FAYE MD Aug 28, 2016 08:47
--- NOTE | 2016-08-28 10:56 | PN ---
Date/Time of Note Date/Time of Note DATE: 08/28/16 TIME: 10:55 Assessment/Plan VTE Prophylaxis VTE Prophylaxis Intervention: SCD's Lines/Catheters IV Catheter Type (from [facility]): Saline Lock Urinary Cath still in place: No Assessment/Plan Chief Complaint/Hosp Course ASSESSMENT AND PLAN: - Metastatic prostate cancer. Dr. Sinclair is following in hematology consultation. Dr. Huang is following in urology consultation. On Lupron status post Zometa. Patient had no cord compression per evaluation by Dr. Coto, radiation oncology. - Coagulase-negative staph urinary bacteremia secondary to urinary tract infection. Continue ceftriaxone. - Acute metabolic encephalopathy, resolved. - Hypertension. Continue metoprolol and benazepril. - Paroxysmal atrial flutter. Dr. Ragsdale is following and cardiology consultation. - Diastolic dysfunction congestive heart failure. Continue Lasix monitor electrolytes. - Hyponatremia secondary to SIADH Dr. Howard is following patient in nephrology consultation. - Diabetes mellitus. Continue Lantus and NovoLog. - Anemia, status post blood transfusion. Continue to monitor hemoglobin and hematocrit. - Urinary retention. Continue to follow up urology recommendation. DC planning. Further recommendations based on clinical course. Plan of care discussed with Dr. Gregory. Problems: Exam/Review of Systems Vital Signs Vitals Vital Signs Date Time Temp Pulse Resp B/P Pulse Ox O2 Delivery O2 Flow Rate FiO2 08/28/16 08:31 98.3 50 19 145/64 97 Intake and Output 08/27/16 08/27/16 08/28/16 15:00 23:00 07:00 Intake Total 1290 ml 400 ml Output Total 1200 ml Balance 1290 ml -800 ml Exam Constitutional: alert, oriented Head: normocephalic Neck: supple Respiratory: diminished breath sounds Cardiovascular: nl pulses Gastrointestinal: non-tender, soft Genitourinary - Male: other (Montesinos catheter) Extremities: normal pulses Results Result Diagram: 08/27/16 0450 08/27/16 0450 Results 24 hrs Laboratory Tests Test 08/27/16 11:54 08/27/16 13:10 08/27/16 17:16 08/27/16 21:27 Bedside Glucose 147 173 141 228 H Test 08/27/16 22:53 08/28/16 02:26 08/28/16 05:47 08/28/16 08:06 Bedside Glucose 172 140 153 137 Medications Medications Current Medications Diltiazem HCl (Cardizem Iv) 5 mg Q6H PRN IV ELEVATED HEART RATE; Start 08/10/16 at 03:45 Miscellaneous Information 1 ea NOTE XX ; Start 08/10/16 at 03:45 Glucose (Glutose) 15 gm Q15M PRN PO DECREASED GLUCOSE Last administered on 08/27 05:26; Admin Dose 15 GM; Start 08/10/16 at 03:45 Glucose (Glutose) 22.5 gm Q15M PRN PO DECREASED GLUCOSE; Start 08/10/16 at 03:45 Dextrose (D50w Syringe) 25 ml Q15M PRN IV DECREASED GLUCOSE; Start 08/10/16 at 03:45 Dextrose (D50w Syringe) 50 ml Q15M PRN IV DECREASED GLUCOSE; Start 08/10/16 at 03:45 Glucagon (Glucagen) 1 mg Q15M PRN IM DECREASED GLUCOSE; Start 08/10/16 at 03:45 Glucose (Glutose) 15 gm Q15M PRN BUCCAL DECREASED GLUCOSE; Start 08/10/16 at 03: 45 Miscellaneous Information (Pending [facility] Order For Wound Care) This patient melendez... PRN PRN XX WOUND CARE; Start 08/10/16 at 12:00 Metoprolol Tartrate 5 mg 5 mg Q4H PRN IV hr>110 hold sbp<100; Start 08/10/16 at 14:30 Ceftriaxone Sodium (Rocephin) 50 ml @ 100 mls/hr Q24H IVPB Last administered on 08/27/16 21:21; Admin Dose 100 MLS/HR; Start 08/14/16 at 20:00 Zolpidem Tartrate (Ambien) 5 mg HS PRN PO INSOMNIA Last administered on 21:39; Admin Dose 5 MG; Start 08/18/16 at 22:00 Amiodarone HCl (Cordarone) 200 mg DAILY PO Last administered on 08/25/16 09:26 ; Admin Dose 200 MG; Start 08/20/16 at 09:00 Pantoprazole (Protonix Tab) 40 mg DAILY@06 PO Last administered on 08/28/16 06 :08; Admin Dose 40 MG; Start 08/20/16 at 06:00 Metoprolol Tartrate (Lopressor) 12.5 mg BID PO Last administered on 08/27/16 21:22; Admin Dose 12.5 MG; Start 08/20/16 at 21:00 Acetaminophen (Tylenol Supp) 650 mg Q6H PRN ME FEVER; Start 08/20/16 at 15:00 Acetaminophen/ Hydrocodone Bitart ([place] (5/325)) 1 tab Q6H PRN PO PAIN LEVEL 7 -10 Last administered on 08/27/16 16:14; Admin Dose 1 TAB; Start 08/20/16 at 13 :53 Acetaminophen (Tylenol Tab) 650 mg Q4H PRN PO PAIN AND OR ELEVATED TEMP Last administered on 08/26/16 20:31; Admin Dose 650 MG; Start 08/20/16 at 13:54 Sodium Chloride (Nacl) 1 gm TID PO Last administered on 08/28/16 08:26; Admin Dose 1 GM; Start 08/20/16 at 21:00 Lorazepam (Ativan) 0.5 mg Q6H PRN PO ANXIETY; Start 08/21/16 at 16:30 Dexamethasone (Decadron) 4 mg Q8 PO Last administered on 08/28/16 06:08; Admin Dose 4 MG; Start 08/22/16 at 14:00 Insulin Glargine (Lantus) 16 unit DAILY@20 SC Last administered on 08/27/16 21 :30; Admin Dose 16 UNIT; Start 08/23/16 at 20:00 Hydralazine HCl (Apresoline) 25 mg BID PO Last administered on 08/28/16 08:29 ; Admin Dose 25 MG; Start 08/25/16 at 09:30 Insulin Human NPH (Humulin N) 10 unit DAILY@06 SC Last administered on 06:09; Admin Dose 10 UNIT; Start 08/28/16 at 06:00 Insulin Human NPH (Humulin N) 10 unit DAILY@14 SC Last administered on 13:18; Admin Dose 10 UNIT; Start 08/27/16 at 14:00 Insulin Human NPH (Humulin N) 4 unit DAILY@22 SC Last administered on 22:57; Admin Dose 4 UNIT; Start 08/27/16 at 22:00 ROBERT CORRALES Aug 28, 2016 10:56
--- NOTE | 2016-08-28 11:40 | PN ---
DATE: 08/28/2016 SUBJECTIVE: Metastatic prostate cancer. The patient does have abdominal and back pain, but he stat es that it is very mild. He has been able to ambulate. Yesterday was physical therapy, and he is u rinating well and there is no blood in his urine. He denies any dysuria. OBJECTIVE FINDINGS: VITAL SIGNS: Temperature is 98.3, blood pressure 145/64, pulse is 50, respiration is 19. ABDOMEN: Soft. LABORATORY DATA: CBC shows a white count of 12.7, hemoglobin 10.6, hematocrit 33.1. The latest BUN from yesterday was 20, creatinine 0.45. Urine culture: No growth after 48 hours. IMPRESSION: Metastatic prostate cancer. The patient has received a Lupron injection on 08/14/2016, and he is due to have another injection on 09/14/2015. The patient is voiding well. He is also be ing seen by the oncologist and has received also a dose of Zometa while he is here in the hospital. If he is going to be discharged today, it if fine from a urological standpoint. Dictated By: ANGELA GRANT/CHERRY Conf#: [id number] DID#: [id number]
--- NOTE | 2016-08-28 17:39 | CONS ---
Date/Time of Note Date/Time of Note DATE: 08/28/16 TIME: 17:38 Assessment/Plan Assessment/Plan Additional Assessment/Plan 1. Severe hyponatremia with a sodium 114 on admission. 2. Acute metabolic encephalopathy and fall at home secondary to severe hyponatremia. 3. Hypovolemic hyponatremia versus syndrome of inappropriate diuretic hormone. 4. Hypertension. 5. Hyperlipidemia. 6. History of prostate carcinoma. 7. History of diabetes mellitus. 8. History of bilateral knee arthritis. 9. Anemia, Iron deficiency,iron sat 16%, normal ferritin Plan: S/p 3 % saline,and S/p one dose of tolvaptan 15 gram PO x 1 dose before- another dose of tolvaptan 15mg on 08/21/16- Na normal D/c lotensin due to hyperkalemia on saturday, today K stable on Na chloride table 1 gram PO TID Cr normal, will continue to follow up Consultation Date/Type/Reason Admit Date/Time Aug 09, 2016 at 23:11 Type of Consultation: NEPHROLOGY Referring Provider: BIBIANA DUKE 24 HR Interval Summary Free Text/Dictation seen in AM< BP stable, plan for d/c home today Exam/Review of Systems Vital Signs Vitals Vital Signs Date Time Temp Pulse Resp B/P Pulse Ox O2 Delivery O2 Flow Rate FiO2 08/28/16 08:31 98.3 50 19 145/64 97 Intake and Output 08/27/16 08/27/16 08/28/16 15:00 23:00 07:00 Intake Total 1290 ml 400 ml Output Total 1200 ml Balance 1290 ml -800 ml Exam Constitutional: alert, frail, oriented Psych: no complaints Head: normocephalic Eyes: nl conjunctiva ENMT: nl external ears & nose Neck: non-tender, supple Respiratory: clear to auscultation Cardiovascular: regular rate and rhythm Musculoskeletal: nl extremities to inspection Results Result Diagram: 08/27/16 04508/27/16 045 Results 24 hrs Laboratory Tests Test 08/27/16 21:27 08/27/16 22:53 08/28/16 02:26 08/28/16 05:47 Bedside Glucose 228 H 172 140 153 Test 08/28/16 08:06 08/28/16 12:08 08/28/16 13:15 Bedside Glucose 137 232 H 183 KARLENE MUÑOZ MD Aug 28, 2016 17:39
== END 2016-08-28 15:42 | DRG 70 ==
LOC: FTE 18:10 → TEL 23:11 → PP2 08-19 00:13
PROVIDERS: ADMIT Internal Medicine; ATTEND Internal Medicine
PROC: 0T7D7DZ Dilation of Urethra with Intraluminal Device, Via Natural or Artificial Opening (ICD-10-PCS; 2016-08-11)
PROC: 30233N1 Transfusion of Nonautologous Red Blood Cells into Peripheral Vein, Percutaneous Approach (ICD-10-PCS; principal; 2016-08-12)
DX: G93.41 Metabolic encephalopathy (principal); I50.43 Acute on chronic combined systolic (congestive) and diastolic (congestive) heart failure; J90 Pleural effusion, not elsewhere classified; C79.51 Secondary malignant neoplasm of bone; E22.2 Syndrome of inappropriate secretion of antidiuretic hormone; C77.2 Secondary and unspecified malignant neoplasm of intra-abdominal lymph nodes; I48.92 Unspecified atrial flutter; N39.0 Urinary tract infection, site not specified; I11.0 Hypertensive heart disease with heart failure; S37.39XA Other injury of urethra, initial encounter; E87.1 Hypo-osmolality and hyponatremia; K92.1 Melena; J98.11 Atelectasis; C61 Malignant neoplasm of prostate; E86.1 Hypovolemia; N36.5 Urethral false passage; I48.91 Unspecified atrial fibrillation; E11.9 Type 2 diabetes mellitus without complications; Z79.82 Long term (current) use of aspirin; Z79.4 Long term (current) use of insulin; R40.2412 Glasgow coma scale score 13-15, at arrival to emergency department; Z91.81 History of falling; R33.9 Retention of urine, unspecified; R31.0 Gross hematuria; R39.15 Urgency of urination; R32 Unspecified urinary incontinence; M17.0 Bilateral primary osteoarthritis of knee; M71.21 Synovial cyst of popliteal space [Baker], right knee; M79.89 Other specified soft tissue disorders; Y33.XXXA Other specified events, undetermined intent, initial encounter; Y92.239 Unspecified place in hospital as the place of occurrence of the external cause; M48.06 Spinal stenosis, lumbar region; R00.1 Bradycardia, unspecified; E87.5 Hyperkalemia
CPT/HCPCS: 36415; 36430; 70450; 70553; 71010; 71260; 72156; 72157; 72158; 74177; 80048; 80053; 80202; 81001; 82607; 82728; 82746; 82947; 82962; 83010; 83036; 83090; 83540; 83605; 83615; 83921; 83930; 83935; 84153; 84154; 84295; 84300; 84403; 84443; 84484; 85014; 85018; 85025; 85045; 85610; 85730; 86850; 86900; 86901; 86920; 87040; 87086; 92526; 92610; 93005; 93306; 93970; 93971; 96374; 97110; 97116; 97162; 97530; J1940; J3487; C9113; J0696; J1650; J1815; J1956; J2060; J3370; J3420; J7030; J7050; P9016; Q9967

== ENCOUNTER 2016-09-02 17:05 | Inpatient (IN) | payer OTHER ==
[~2016-09-02] VITALS: Ht 165.1 cm; Wt 67.5 kg
[~2016-09-02 17:05] MED LIST changes: +ASC500 PO; +ASPI-664 PO; +DOCU-159 PO; -DOCU100C59 PO; +DONE5TAB7 PO; +FER325 PO; -FURO-109 PO; +FURO40TA4 PO; +GABA300C16 PO; +HYDR-906 PO; +L. A1CAP12 PO; +LANT3I SC; -LANT3I SQ; +LOSA100T7 PO; -LOSA50TA2 PO; +MELO-109 PO; +REPA0.5T3 PO; +SIMV20TA PO; -SIMV20TA6 PO; -TAMS-14 PO; +TAMS0.4C2 PO; -[UNRECOGNIZED DRUG - CODE] PO
[2016-09-02] MEDS ORDERED: SOD CHLORIDE 0.9% 1,000 ML IV STA (17:16)
--- NOTE | 2016-09-02 17:58 | RADRPT ---
PROCEDURE: XR Chest. CLINICAL INDICATION: Shortness of breath. TECHNIQUE: Single frontal view. COMPARISON: 08/09/2016. FINDINGS: There is bilateral interstitial disease consistent with pulmonary edema. Bibasilar atelectasis with left worse than right is unchanged. The heart is enlarged. There is no pleural effusion or pneumothorax. There is diffuse osseous sclerosis and lysis consistent with probable metastatic disease. a surgic al clip is present in the left upper quadrant of the abdomen. IMPRESSION: 1. Pulmonary edema and atelectasis at the lung bases, left worse than right. 2. Cardiomegaly. 3. Probable diffuse osseous metastatic disease. RPTAT: QQ .Mckinley Sandy MD, MD Date Time Electronically viewed and signed by .Mckinley Sandy MD, on 09/02/2016 17:58 .R/
--- NOTE | 2016-09-02 18:22 | RADRPT ---
PROCEDURE: CT Head without contrast. CLINICAL INDICATION: Rule out bleed. Altered mental status. TECHNIQUE: The study was performed utilizing a GE 64-slice multidetector CT scanner. Direct spiral axial CT images of the brain were obtained from the vertex to the skull base without contrast. Manisha nal and sagittal reformatted images are provided. The CTDI vol is 44.84 mGy and the DLP is 720.23 mG y-cm. The images were reviewed on a PACS workstation. COMPARISON: MRI of the brain from 08/13/2016 FINDINGS: Mild to moderate diffuse atrophy is seen with a compensatory ventricular enlargement. Mild to moder ate white matter disease in the periventricular and deep white matter is seen. The muñoz-white matte r differentiation is maintained. No intra or extra-axial fluid collection or mass effect or shift i n the midline structures is seen. The visualized paranasal sinuses, mastoid air cells, orbits, and calvarium are unremarkable. Vascular calcifications are seen. IMPRESSION: 1. No acute intracranial pathology. 2. Stable mild to moderate diffuse volume loss and mild to moderate chronic microvascular ischemic changes. RPTAT: HPNM Physician Negin Date Time Electronically viewed and signed by Physician Negin on 09/02/2016 18:22 /
[2016-09-02 19:03] LABS: ADD SCAN DIFF NO
--- NOTE | 2016-09-02 19:06 | ERA ---
ER Documentation Chief Complaint Date/Time DATE: 09/02/16 TIME: 19:05 Chief Complaint aloc-family noticed behavior this morning HPI 66-year-old man with multiple medical conditions brought in by EMS from home for altered mental status today, he has had similar episodes past and has a long history of recurrent urinary tract infections and metastatic prostate carcinoma. He has had no vomiting or diarrhea, no blood per rectum or melena. HPI was limited as patient was nonverbal although supplemented by reviewing past medical history, speaking to EMS, and nursing staff. ROS All systems reviewed and are negative except as per history of present illness. Medications Home Meds Reported Medications L. Acidophilus/Pectin, [place] (Acidophilus Capsule) 1 Each Capsule, 1 EACH PO DAILY, CAP 08/09/16 Donepezil* (Donepezil*) 5 Mg Tablet, 5 MG PO QHS, #30 TAB 08/09/16 Insulin Glargine* (Lantus*) 100 Unit/Ml Soln, 10 UNIT SC QHS, #1 VIAL 08/09/16 Hydrocodone/Acetaminophen ([place] 5-325 Tablet) 1 Each Tablet, 1 EACH PO QID, TAB 08/09/16 Repaglinide* (Repaglinide*) 0.5 Mg Tablet, 1 MG PO AC MEALS Y for TID, TAB 08/09/16 Losartan Potassium* (Losartan Potassium*) 100 Mg Tablet, 100 MG PO DAILY, TAB 08/09/16 Meloxicam* (Meloxicam*) 7.5 Mg Tablet, 7.5 MG PO QAM, #30 TAB 08/09/16 Tamsulosin Hcl* (Tamsulosin Hcl*) 0.4 Mg Cap.er.24h, 0.4 MG PO DAILY, CAP 08/09/16 Pantoprazole* (Pantoprazole*) 40 Mg Tablet.dr, 40 MG PO AC BREAKFAST, TAB 08/09/16 Gabapentin* (Gabapentin*) 300 Mg Capsule, 300 MG PO TID, #90 CAP 08/09/16 Aspirin* (Aspirin* EC) 81 Mg Tablet.dr, 81 MG PO DAILY, TAB 08/09/16 Simvastatin* (Zocor*) 20 Mg Tablet, 20 MG PO QHS, #30 TAB 08/09/16 Furosemide* (Furosemide*) 40 Mg Tablet, 40 MG PO DAILY, TAB 08/09/16 Docusate Sodium* (Docusate Sodium*) 100 Mg Capsule, 100 MG PO DAILY, #30 CAP 08/09/16 Ascorbic Acid (Vitamin C) 500 Mg Tab, 500 MG PO DAILY, TAB 08/09/16 Ferrous Sulfate* (Ferrous Sulfate*) 325 Mg Tabec, 325 MG PO BID, TAB 08/09/16 Allergies Allergies: Coded Allergies: No Known Allergy (Unverified , 09/02/16) PMhx/Soc Previous hyponatremia, hypertension, hyperlipidemia, metastatic prostate carcinoma, diabetes mellitus, arthritis, anemia, paroxysmal atrial flutter with an abnormal echocardiogram, coronary artery disease, congestive heart failure, previous dehydration, recurrent urinary tract infections History of Surgery: Yes (APPENDECTOMY, CATARACTS) Anesthesia Reaction: No Hx Neurological Disorder: No Hx Respiratory Disorders: No Hx Cardiac Disorders: Yes (HTN, prostate CA) Hx Psychiatric Problems: No Hx Miscellaneous Medical Probl: Yes (see PT note) Hx Alcohol Use: No Hx Substance Use: No Hx Tobacco Use: No Smoking Status: Unknown if ever smoked FmHx Family History: No diabetes Physical Exam Vitals Vital Signs Date Time Temp Pulse Resp B/P Pulse Ox O2 Delivery O2 Flow Rate FiO2 09/02/16 21:37 98.8 64 22 164/89 96 Room Air 09/02/16 17:14 98.1 72 16 155/70 97 Physical Exam GENERAL: Elderly, chronically debilitated man, appears dehydrated, encephalopathic, afebrile HEENT: Dry mucous membranes, pink conjunctiva, no cervical spine deformity NEURO: Eyes closed, nonverbal, able to move extremities, no facial asymmetry, pupils equal round reactive to light CARDIAC: Regular rate and rhythm, no murmurs rubs or gallops LUNGS: Clear bilaterally no wheezing crackles or stridor ABDOMEN: Soft nontender, no guarding, no rigidity, no rebound, no psoas sign no obturator sign. SKIN: Warm and dry to touch, no abrasions, contusions, or hematomas, no lacerations, no ecchymosis, no target lesions, and without ulcers EXTREMITIES: No clubbing cyanosis or edema, calves are bilaterally symmetrical, no Homans sign, no popliteal cord sign. Distal pulses equal and bilateral PSYCH: Unable to assess Result Diagram: 09/02/16 1750 09/02/16 1750 Results 24 hrs Laboratory Tests Test 09/02/16 17:30 09/02/16 17:50 Ammonia < 9umol/l White Blood Count 11.910^3/ul Red Blood Count 3.4010^6/ul Hemoglobin 10.4g/dl Hematocrit 29.8% Mean Corpuscular Volume 87.6fl Mean Corpuscular Hemoglobin 30.6pg Mean Corpuscular Hemoglobin Concent 34.9g/dl Red Cell Distribution Width 19.3% Platelet Count 74918^3/UL Mean Platelet Volume 10.3fl Neutrophils % 85.7% Lymphocytes % 7.2% Monocytes % 4.5% Eosinophils % 0.0% Basophils % 0.1% Nucleated Red Blood Cells % 0.2/100WBC Neutrophils # 10.210^3/ul Lymphocytes # 0.910^3/ul Monocytes # 0.510^3/ul Eosinophils # 0.010^3/ul Basophils # 0.010^3/ul Nucleated Red Blood Cells # 0.010^3/ul Prothrombin Time 14.7Sec Prothrombin Time Ratio 1.1 INR International Normalized Ratio 1.15 Sodium Level 116mmol/L Potassium Level 5.3mmol/L Chloride Level 91mmol/L Carbon Dioxide Level 22mmol/L Anion Gap 8 Blood Urea Nitrogen 12mg/dl Creatinine 0.41mg/dl Glucose Level 169mg/dl Calcium Level 7.1mg/dl Total Bilirubin 0.6mg/dl Direct Bilirubin 0.00mg/dl Indirect Bilirubin 0.6mg/dl Aspartate Amino Transf (AST/SGOT) 362IU/L Alanine Aminotransferase (ALT/SGPT) 43IU/L Alkaline Phosphatase 1072IU/L Troponin I 0.045ng/ml Total Protein 5.1g/dl Albumin 3.0g/dl Globulin 2.10g/dl Albumin/Globulin Ratio 1.42 Lipase 29U/L Current Medications Medications (Trade) Dose Ordered Sig/John Route PRN Reason Start Time Stop Time Status Last Admin Dose Admin Sodium Chloride 1,000 ml @ 1,000 mls/hr Q1H STAT IV 09/02/16 17:16 09/02/16 18:15 DC 09/02/16 18:30 Ceftriaxone Sodium 50 ml @ 100 mls/hr ONCE ONCE IVPB 09/02/16 20:00 09/02/16 20:29 DC 09/02/16 20:38 Sodium Chloride 200 ml @ 100 mls/hr Q2H IV 09/02/16 20:00 09/02/16 20:38 Sodium Chloride (NS) 1,000 ml @ 100 mls/hr Q10H IV 09/02/16 20:36 09/02/16 22:00 IV Flush (NS 3 ml) 3 ml PER PROTOCOL IV 09/02/16 21:00 Ondansetron HCl (Zofran Inj) 4 mg Q6H PRN IV NAUSEA AND/OR VOMITING 09/02/16 21:00 Acetaminophen (Tylenol Tab) 650 mg Q6H PRN PO PAIN LEVEL 1-3 OR FEVER 09/02/16 21:00 Morphine Sulfate (morphine) 2 mg Q4H PRN IV PAIN LEVEL 7-10 09/02/16 21:00 Famotidine (Pepcid Iv) 20 mg DAILY IV 09/02/16 21:00 09/02/16 21:27 Enoxaparin Sodium 30 mg 30 mg DAILY SC 09/03/16 09:00 Ceftriaxone Sodium (Rocephin) 50 ml @ 100 mls/hr DAILY IVPB 09/03/16 09:00 Procedures/MDM IV line was established patient was placed on information services tech rhythm strip revealed a sinus rhythm at about 70 bpm with upright P and T waves. Patient was afebrile. Blood and urine cultures have been ordered results are pending I will follow-up. Montesinos catheter was attempted here in the ED although unsuccessful, condom cath is then placed. Urine analysis is also been ordered results are pending I will follow-up. I administered 1 L normal saline intravenously for dehydration. EKG performed, read by me revealed a normal sinus rhythm at 67 bpm, normal axis , first-degree atrial ventricular block with a IN interval of 254 ms, narrow QRS complex, no concerning ST elevations or depressions noted. Diffuse T-wave inversions. One view chest x-ray performed, read by me there is cardiomegaly and pulmonary infiltrates, no pneumothorax, no air under the diaphragm. CBC was unremarkable, electrolytes revealed hyperkalemia 5.3 and severe hyponatremia at 116. Liver function tests normal, troponin negative. Patient also has hypocalcemia 7.1, alkaline phosphatase is elevated consistent with metastatic prostate carcinoma. For acute encephalopathy and severe hyponatremia I administered 3% hypertonic saline over 1 hour. For suspected UTI also administered ceftriaxone 1 g IV. Patient's mental status is slowly improving with IV fluid hydration and hypertonic saline. He will be admitted to telemetry setting for continued medical management. Critical Care: Time: 43 minutes, this was time separate from other billable procedures. Treatments/Evaluations: Close monitoring and treatment of unstable vital signs, cardiorespiratory, and neurologic status, while maintaining tight balance of fluid, respiratory, and cardiac interventions. Departure Diagnosis: Primary Impression: Acute metabolic encephalopathy Additional Impressions: Acute hyponatremia Acute hyperkalemia Acute urinary tract infection Dehydration Prostate carcinoma Condition: Serious JESSE OSULLIVAN MD Sep 02, 2016 19:06
[2016-09-02 19:12] LABS: BASOPHILS % 0.1 % (0.0-2.0); HEMATOCRIT 29.8 % (42.0-52.0); HEMOGLOBIN 10.4 g/dl (14.0-18.0); LYMPHOCYTES # 0.9 10^3/ul (0.8-2.9); LYMPHOCYTES % 7.2 % (15.0-51.0); MEAN CORPUSCULAR HEMOGLOBIN 30.6 pg (29.0-33.0); MEAN CORPUSCULAR HGB CONC 34.9 g/dl (32.0-37.0); MEAN CORPUSCULAR VOLUME 87.6 fl (82.0-101.0); MEAN PLATELET VOLUME 10.3 fl (7.4-10.4); MONOCYTE # 0.5 10^3/ul (0.3-0.9); MONOCYTES % 4.5 % (0.0-11.0); NEUTROPHIL # 10.2 10^3/ul (1.6-7.5); NEUTROPHILS % 85.7 % (39.0-77.0); NUCLEATED RED BLOOD CELLS% 0.2 /100WBC (0.0-0.0); PLATELET COUNT 106 10^3/UL (140-415); RED CELL DISTRIBUTION WIDTH 19.3 % (11.5-14.5); WHITE BLOOD COUNT 11.9 10^3/ul (4.8-10.8)
[2016-09-02 19:21] LABS: INR 1.15; PROTIME 14.7 Sec (12.2-14.2); PT RATIO 1.1
[2016-09-02 19:27] LABS: ALBUMIN/GLOBULIN RATIO 1.42; BILIRUBIN,INDIRECT 0.6 mg/dl (0-1.1); BILIRUBIN,TOTAL 0.6 mg/dl (0.2-1.3); CALCIUM 7.1 mg/dl (8.4-10.2); CREATININE 0.41 mg/dl (0.61-1.24); POTASSIUM 5.3 mmol/L (3.5-5.1); TOTAL PROTEIN 5.1 g/dl (6.1-8.1)
[2016-09-02 19:38] LABS: TROPONIN-I 0.045 ng/ml (0.00-0.12)
[2016-09-02] MEDS ORDERED: CEFTRIAXONE 1 GM/50 ML (PMX) 50 ML IVPB ONE (20:00)
[2016-09-02] MEDS: NACL 3% 200 ML IV SCH (20:38)
[2016-09-02] MEDS ORDERED: morphine 2 MG INJ IV PRN (21:00)
[2016-09-02] MEDS ORDERED: ONDANSETRON 4 MG INJ IV PRN (21:00)
[2016-09-02] MEDS ORDERED: ACETAMINOPHEN 325 MG TAB PO PRN (21:00)
[2016-09-02] MEDS ORDERED: FAMOTIDINE 20 MG INJ IV SCH (21:00)
[2016-09-02] MEDS ORDERED: NACL 0.9% 3 ML SYG IV SCH (21:00)
[2016-09-02] MEDS: SOD CHLORIDE 0.9% 1,000 ML IV SCH (22:00)
[2016-09-02] MEDS ORDERED: CALCIUM GLUCONATE 10% 1 GM in SOD CHLORIDE 0.9% 100 ML IVPB ONE (23:00)
[2016-09-02 23:32] LABS: ADD UMIC YES; UR ASCORBIC ACID NEGATIVE (NEGATIVE); UR BACTERIA FEW /HPF (NONE SEEN); UR BILIRUBIN (Dip) NEGATIVE (NEGATIVE); UR BLOOD (Dip) 3+ mg/dL (NEGATIVE); UR CLARITY CLOUDY (CLEAR); UR COLOR RED (YELLOW); UR GLUCOSE (Dip) 2+ mg/dL (NEGATIVE); UR KETONES (Dip) NEGATIVE (NEGATIVE); UR LEUKOCYTE ESTERASE (Dip) 2+ Leu/ul (NEGATIVE); UR MUCUS FEW /HPF (NONE SEEN); UR NITRITE (Dip) NEGATIVE (NEGATIVE); UR RBC > 182 /HPF (0-5); UR SPECIFIC GRAVITY (Dip) 1.026 (1.003-1.030); UR SQUAMOUS EPITHELIAL CELL FEW /HPF (FEW); UR TOTAL PROTEIN (Dip) 2+ mg/dl (NEGATIVE); UR UROBILINOGEN (Dip) 2+ mg/dL (NEGATIVE); UR WBC CLUMPS FEW /HPF (NONE SEEN)
[2016-09-03] MEDS: NACL 3% 200 ML IV SCH (02:03)
[2016-09-03] MEDS: SOD CHLORIDE 0.9% 1,000 ML IV SCH ×2 (05:03→16:06)
[2016-09-03 06:18] LABS: ALBUMIN 2.3 g/dl (3.3-4.9); ALBUMIN/GLOBULIN RATIO 1.15; BILIRUBIN,INDIRECT 0.5 mg/dl (0-1.1); BILIRUBIN,TOTAL 0.5 mg/dl (0.2-1.3); CALCIUM 6.8 mg/dl (8.4-10.2); CREATININE 0.35 mg/dl (0.61-1.24); POTASSIUM 4.4 mmol/L (3.5-5.1); TOTAL PROTEIN 4.3 g/dl (6.1-8.1)
[2016-09-03 07:17] LABS: ADD SCAN DIFF NO
[2016-09-03 07:19] LABS: BASOPHILS % 0.1 % (0.0-2.0); HEMATOCRIT 28.2 % (42.0-52.0); HEMOGLOBIN 9.6 g/dl (14.0-18.0); LYMPHOCYTES # 0.8 10^3/ul (0.8-2.9); LYMPHOCYTES % 7.2 % (15.0-51.0); MEAN CORPUSCULAR HEMOGLOBIN 30.2 pg (29.0-33.0); MEAN CORPUSCULAR VOLUME 88.7 fl (82.0-101.0); MONOCYTE # 0.5 10^3/ul (0.3-0.9); MONOCYTES % 4.5 % (0.0-11.0); NEUTROPHIL # 9.4 10^3/ul (1.6-7.5); NEUTROPHILS % 86.6 % (39.0-77.0); NUCLEATED RED BLOOD CELLS% 0.2 /100WBC (0.0-0.0); PLATELET COUNT 101 10^3/UL (140-415); RED BLOOD COUNT 3.18 10^6/ul (4.70-6.10); RED CELL DISTRIBUTION WIDTH 19.9 % (11.5-14.5); WHITE BLOOD COUNT 10.9 10^3/ul (4.8-10.8)
[2016-09-03 08:40] VITALS: TEMP 98.9
[2016-09-03] MEDS ORDERED: CEFTRIAXONE 1 GM/50 ML (PMX) 50 ML IVPB SCH ×2 (09:00→21:00)
[2016-09-03 09:40] VITALS: BP 138/65; PULSE 85; RESP 20
[2016-09-03 09:48] VITALS: Ht 165.1 cm; Wt 67.5 kg
[2016-09-03] MEDS: ENOXAPARIN 30 MG/0.3 ML SYG SC SCH (12:25)
[2016-09-03] MEDS ORDERED: REPAGLINIDE 1 MG TAB PO PRN (14:30)
[2016-09-03] MEDS ORDERED: hydrALAzine 20 MG INJ IV PRN (14:30)
[2016-09-03] MEDS ORDERED: GLUCAGON 1 MG INJ IM PRN (15:00)
[2016-09-03] MEDS ORDERED: DEXTROSE 50% 50 ML SYRINGE IV PRN ×2 (15:00)
[2016-09-03] MEDS ORDERED: GLUCOSE GEL 15 GRAM TUBE PO PRN ×2 (15:00)
[2016-09-03] MEDS ORDERED: GLUCOSE GEL 15 GRAM TUBE BUCCAL PRN (15:00)
--- NOTE | 2016-09-03 18:59 | CONS ---
DATE OF ADMISSION: 09/03/2016 DATE OF CONSULTATION: 09/03/2016 TYPE OF CONSULTATION: Nephrology. REFERRING PHYSICIANS: Dr. Flor Rowland/Dr. Chanelle Paul REASON FOR CONSULTATION: Severe hyponatremia with a sodium of 116 on admission. HISTORY OF PRESENT ILLNESS: This is an 86-year-old male who has a past medical history of hypertens ion, hyperlipidemia, CHF, atrial fibrillation/flutter, cataracts, ____, chronic; history of SIADH ca using hyponatremia, diabetes mellitus, history of appendectomy. The patient was recently admitted a [facility] from 08/09/2016 to 08/28/2016. [facility] He was discharged on 08/28/2016. The patient was admitted on 09/03/2016 with altered mental status. The family had noticed his alter ed behavior yesterday morning. They brought him to the [facility] Emergency Room where he was noted to have severe hyponatremia with a sodium of 116 on admission. He was admitted t o the telemetry floor and was given 3% hypertonic saline. At the time of my evaluation, the patient looks slightly normal, back to his baseline status, but he was severely altered. Overnight, he als o had hyponatremia, along with that hyperkalemia and a urinary tract infection with severe dehydrati on. The patient has been given IV fluid hydrations. REVIEW OF SYSTEMS: Positive for altered mental status. Unable to obtain the other review of system s. 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 PAST SURGICAL HISTORY: History of appendectomy, history of cataract surgery. SOCIAL HISTORY: No smoking, alcohol, or recreational drug use. FAMILY HISTORY: No history of chronic kidney disease/coronary artery disease/stroke in the family. PHYSICAL EXAMINATION: VITAL SIGNS: Temperature 98.3, heart rate 50, respiration 19, blood pressure 145/64, saturation 97% on room air. GENERAL: Awake, alert, not oriented to place, person, and time. HEENT: Pupils equal and round, reactive to light and accommodation. Extraocular muscles are intact . NECK: Supple. No JVD, no lymphadenopathy. LUNGS: Clear to auscultation. No crackles or wheezes. HEART: S1, S2 with regular rhythm. No murmur. ABDOMEN: Soft, nontender, nondistended. Bowel sounds are present. EXTREMITIES: No clubbing, cyanosis, edema. NEUROLOGICAL: Uncooperative for exam. LABORATORY DATA AND DIAGNOSTIC IMAGIN. Sodium 116, potassium 5.3, chloride 91, bicarbonate 22, BUN 12, creatinine 0.4, glucose 169, juaquin cium 7.1. LFTs are normal. ALT 43, albumin is 3. 2. Prothrombin time 14.7, INR 1.15. 3. WBC 11.9, hemoglobin 10.4, platelet count is 106. 4. Urinalysis: 2+ urobilinogen, 2+ leukocyte esterase, more than 182 RBC, more than 182 WBCs, few bacteria. IMPRESSION: This is an 86-year-old male who was admitted for acute metabolic encephalopathy and chaz yang has been consulted for: 1. Severe hyponatremia with sodium 116 on admission, likely secondary to a combination of syndrome of inappropriate antidiuretic hormone and hypovolemic hyponatremia. 2. Acute metabolic encephalopathy from severe hyponatremia and urinary tract infection. 3. Urinary tract infection. 4. 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 Required tolvaptan on last admission. 5. History of metastatic prostate cancer. 6. History of hypertension. 7. History of hyperlipidemia. 8. History of bilateral knee arthritis. 9. Acute hyperkalemia secondary to possible prerenal azotemia, resolved. PLAN: Thank you, Dr. Paul, for this consultation. 1. The patient received 3% hypertonic saline for hyponatremia. His sodium has been improved from 1 16 on admission to 127 at the time of evaluation. I will continue the patient's IV fluid hydration NS at 100 mL hour. He already received 2 liters of IV fluid bolus in the emergency room yesterday, so continue the current IV fluids NS at 100 mL hour. 2. IV antibiotics for UTI including ceftriaxone. 3. Continue the other medications as ordered. 4. I am expecting the patient's sodium to improve with IV fluid hydration, but the patient's sodium drops with IV fluid hydration then my plan is to use tolvaptan for severe hyponatremia and acute me tabolic encephalopathy from hyponatremia. 5. The patient is currently seen on the med/surg floor and he will be followed up along with your c ourse in the hospital. Once again, thank you, Dr. Paul, for this consultation. Total time spent in this patient consultation communicating with the family and communicating with t nursing staff on the floor took more than 60 minutes. Dictated By: KARLENE MUÑOZ MD, KP/CHERRY Conf#: [id number] DID#: [id number] CC: FLOR ROWLAND MD; CHANELLE PAUL MD;*EndCC*
--- NOTE | 2016-09-03 19:49 | HP ---
DATE OF ADMISSION: 09/03/2016 REASON FOR ADMISSION: Altered level of consciousness noted by family. HISTORY OF PRESENT ILLNESS: The patient is an 86-year-old gentleman known to me from previous admis jasmeet. The patient is with history of metastatic prostate carcinoma, status post Zometa and Lupron, was followed by Dr. Sinclair in hematology consultation. The patient also was evaluated by Dr. Coto on previous admission. The patient is with history of hyponatremia, urinary retention, hypertensio n and diabetes mellitus. The patient also had a history of arthritis, anemia, paroxysmal atrial flu tter, congestive heart failure and urinary infection. On evaluation in the emergency room, patient noted urinalysis was positive for leukocyte esterase and bacteria. The patient also had hyponatremi a with sodium 116 on admission. White blood cells were elevated to 11,900. After urine culture was collected, the patient was started on broad-spectrum antibiotics and admitted for further evaluatio n and management. PAST MEDICAL HISTORY: Per HPI. PAST SURGICAL HISTORY: Status post appendectomy, status post ERCP with stent placement and subseque nt stent removal by Dr. Pat in 2016, status post cataract surgery. FAMILY HISTORY: Noncontributory. SOCIAL HISTORY: Patient is a resident of custodial facility. No current history of tobacco, alcohol or illicit drug use reported. ALLERGIES: NO KNOWN ALLERGIES. MEDICATIONS ON ADMISSION: 1. Lactinex. 2. Donepezil. 3. Lantus 10 units subQ at bedtime. 4. Whitman. 5. Repaglinide. 6. Cozaar. 7. Meloxicam. 8. Tamsulosin. 9. Protonix. 10. Gabapentin. 11. Aspirin. 12. Zocor. 13. Lasix. 14. Colace. 15. Vitamin C. 16. Ferrous sulfate. REVIEW OF SYSTEMS: A 12-point review of systems is negative unless mentioned in the HPI. PHYSICAL ASSESSMENT: GENERAL: Well-developed, well-nourished gentleman in no acute distress. VITAL SIGNS: Temperature is 98.0, pulse is 85, blood pressure 138/65, respiratory rate 20, oxygen s aturation 95% on room air. HEENT: Head is atraumatic, normocephalic. Pupils equal, round, reactive to light and accommodation . Oral mucosa is pink and moist. NECK: Supple, no cervical lymphadenopathy, no thyromegaly. CHEST: Clear bilaterally. There is no rhonchi, wheezes, rales noted. CARDIOVASCULAR: Normal S1, S2. No murmurs, gallops, clicks, rubs noted. ABDOMEN: Round, soft, nondistended, nontender. Bowel sounds present. There is no guarding or rebo und tenderness. EXTREMITIES: Mild edema. SKIN: The patient has bilateral foot redness. NEUROLOGIC: Patient is awake, alert and oriented to name and situation. Motor strength upper extre mities are 5/5, lower extremities 4/5. LABORATORY DATA: On admission, CBC: White blood cells 11.9, hemoglobin 10.4, hematocrit 29.8, plat elets 106. Chemistry: Sodium is 116. Repeat sodium is 127. Potassium 5.3, chloride 91, carbon di oxide 22, anion gap 8, BUN is 12, creatinine 0.41, glucose 169, calcium 7.9, AST 362, ALT 43, alkali ne phosphatase 1172, lipase is 29. Troponin 0.045. Albumin is 3.0. ASSESSMENT AND PLAN: 1. Urinary tract infection per UA. We will continue broad-spectrum antibiotics. Follow up on lazaro l urine culture. 2. Possible sepsis secondary to urinary tract infection with leukocytosis and encephalopathy. 3. Severe hyponatremia, improving. Continue IV fluids. 4. Dehydration. 5. Metastatic prostate carcinoma. 6. Hypertension. We will continue Cozaar. 7. Diabetes mellitus. Continue Lantus and NovoLog. 8. We will continue Lovenox for deep venous thrombosis prophylaxis and Pepcid for peptic ulcer dise ase prophylaxis. Further recommendations based on clinical course. Plan of care discussed with Dr. Paul. Dictated By: ROBERT CORRALES STACKER for CHANELLE PAUL MD SR/NTS Conf#: [id number] DID#: [id number]
[2016-09-03 20:37] VITALS: BP 144/63; RESP 18
[2016-09-03] MEDS ORDERED: FAMOTIDINE 20 MG INJ IV SCH (21:00)
[2016-09-03] MEDS ORDERED: INSULIN ASPART [NOVOLOG] 3 ML PEN SC STA (21:22)
[2016-09-03] MEDS: INSULIN GLARGINE [LANtus] 3 ML PEN SC SCH (21:41)
[2016-09-03] MEDS: ATORVASTATIN 10 MG TAB PO SCH (21:42)
[2016-09-03] MEDS: NYSTATIN 15 GM CR TOP SCH (21:42)
[2016-09-04] MEDS: ACCU-CHEK XX SCH (01:20)
[2016-09-04] MEDS: SOD CHLORIDE 0.9% 1,000 ML IV SCH ×2 (01:24→12:58)
[2016-09-04] MEDS ORDERED: ACCU-CHEK XX SCH (02:00)
[2016-09-04] MEDS: PANTOPRAZOLE (EC) 40 MG TAB PO SCH (05:11)
[2016-09-04 05:49] LABS: ADD SCAN DIFF NO
[2016-09-04 05:54] LABS: ABNORMAL IP MESSAGE 1; BASOPHILS % 0.1 % (0.0-2.0); EOSINOPHILS % 0.1 % (0.0-7.0); LYMPHOCYTES # 0.7 10^3/ul (0.8-2.9); LYMPHOCYTES % 7.7 % (15.0-51.0); MEAN CORPUSCULAR HGB CONC 33.3 g/dl (32.0-37.0); MEAN PLATELET VOLUME 9.5 fl (7.4-10.4); MONOCYTE # 0.4 10^3/ul (0.3-0.9); MONOCYTES % 4.4 % (0.0-11.0); NEUTROPHIL # 8.3 10^3/ul (1.6-7.5); NEUTROPHILS % 86.3 % (39.0-77.0); PLATELET COUNT 95 10^3/UL (140-415); WHITE BLOOD COUNT 9.6 10^3/ul (4.8-10.8)
[2016-09-04 07:03] LABS: MAGNESIUM 1.9 mg/dl (1.7-2.5); PHOSPHORUS 2.4 mg/dl (2.5-4.9)
[2016-09-04 07:28] LABS: CREATININE 0.37 mg/dl (0.61-1.24); POTASSIUM 4.2 mmol/L (3.5-5.1)
[2016-09-04 07:31] VITALS: BP 138/63; RESP 18
[2016-09-04] MEDS: INSULIN ASPART [NOVOLOG] 3 ML PEN SC SCH ×7 (08:00→21:00)
[2016-09-04] MEDS: ASPIRIN (EC) 81 MG TAB PO SCH (08:22)
[2016-09-04] MEDS: ASCORBIC ACID 500 MG TAB PO SCH ×2 (08:22→21:35)
[2016-09-04] MEDS: TAMSULOSIN (SR) 0.4 MG CAP PO SCH (08:22)
[2016-09-04] MEDS: DOCUSATE SODIUM 100 MG CAP PO SCH (08:22)
[2016-09-04] MEDS: LACTOBACILLUS RHAMNOSUS CAP PO SCH (08:22)
[2016-09-04] MEDS: MULTIVITAMINS/MINERALS TAB PO SCH (08:22)
[2016-09-04] MEDS: SODIUM CHLORIDE 1 GM TAB PO SCH ×3 (08:22→22:32)
[2016-09-04] MEDS: ZINC SULFATE 220 MG CAP PO SCH (08:22)
[2016-09-04] MEDS: METOPROLOL 25 MG TAB PO SCH ×2 (08:23→21:35)
[2016-09-04] MEDS: AMIODARONE 200 MG TAB PO SCH (08:23)
[2016-09-04] MEDS: LOSARTAN 50 MG TAB PO SCH (08:23)
[2016-09-04] MEDS: NYSTATIN 15 GM CR TOP SCH ×2 (08:33→21:36)
[2016-09-04] MEDS: ENOXAPARIN 30 MG/0.3 ML SYG SC SCH (08:33)
[2016-09-04] MEDS ORDERED: [UNRECOGNIZED DRUG - OTHER] PO SCH (09:00)
[2016-09-04] MEDS ORDERED: ASPIRIN (EC) 81 MG TAB PO SCH (09:00)
--- NOTE | 2016-09-04 17:55 | CONS ---
Date/Time of Note Date/Time of Note DATE: 09/04/16 TIME: 17:53 Assessment/Plan Assessment/Plan Additional Assessment/Plan 1. Severe hyponatremia with sodium 116 on admission, likely secondary to a combination of syndrome of inappropriate antidiuretic hormone and hypovolemic hyponatremia. 2. Acute metabolic encephalopathy from severe hyponatremia and urinary tract infection. 3. Urinary tract infection. 4. 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 Required tolvaptan on last admission. 5. History of metastatic prostate cancer. 6. History of hypertension. 7. History of hyperlipidemia. 8. History of bilateral knee arthritis. 9. Acute hyperkalemia secondary to possible prerenal azotemia, resolved. PLAN: S/p 3 % saline, currenlty on IVF NS- will decresed rate to 70 cc/hr Na improved to 130 will follo wup Consultation Date/Type/Reason Admit Date/Time Sep 03, 2016 at 07:04 Initial Consult Date Exam/Review of Systems Vital Signs Vitals Vital Signs Date Time Temp Pulse Resp B/P Pulse Ox O2 Delivery O2 Flow Rate FiO2 09/04/16 07:31 98.2 78 18 138/63 95 09/03/16 09:40 Room Air Intake and Output 09/03/16 09/03/16 09/04/16 15:00 23:00 07:00 Intake Total 1190 ml 1250 ml Output Total 250 ml 350 ml Balance 940 ml 900 ml Exam GENERAL: Awake, alert, not oriented to place, person, and time. HEENT: Pupils equal and round, reactive to light and accommodation. Extraocular muscles are intact. NECK: Supple. No JVD, no lymphadenopathy. LUNGS: Clear to auscultation. No crackles or wheezes. HEART: S1, S2 with regular rhythm. No murmur. ABDOMEN: Soft, nontender, nondistended. Bowel sounds are present. EXTREMITIES: No clubbing, cyanosis, edema. NEUROLOGICAL: Uncooperative for exam. Results Result Diagram: 09/04/16 0430 09/04/16 0430 Results 24 hrs Laboratory Tests Test 09/03/16 21:11 09/04/16 01:23 09/04/16 04:30 09/04/16 08:20 Bedside Glucose 310 H 221 H 126 White Blood Count 9.6 Red Blood Count 3.00 L Hemoglobin 9.0 L Hematocrit 27.0 L Mean Corpuscular Volume 90.0 Mean Corpuscular Hemoglobin 30.0 Mean Corpuscular Hemoglobin Concent 33.3 Red Cell Distribution Width 20.0 H Platelet Count 95 L Mean Platelet Volume 9.5 Neutrophils % 86.3 H Lymphocytes % 7.7 L Monocytes % 4.4 Eosinophils % 0.1 Basophils % 0.1 Nucleated Red Blood Cells % 0.0 Neutrophils # 8.3 H Lymphocytes # 0.7 L Monocytes # 0.4 Eosinophils # 0.0 Basophils # 0.0 Nucleated Red Blood Cells # 0.0 Sodium Level 130 L Potassium Level 4.2 Chloride Level 103 Carbon Dioxide Level 22 Anion Gap 9 Blood Urea Nitrogen 10 Creatinine 0.37 L Glucose Level 157 Calcium Level 7.0 L Phosphorus Level 2.4 L Magnesium Level 1.9 Test 09/04/16 12:57 09/04/16 17:29 Bedside Glucose 103 94 Medications Medications Current Medications Sodium Chloride (NS) 1,000 ml @ 100 mls/hr Q10H IV Last administered on 12:58; Admin Dose 100 MLS/HR; Start 09/02/16 at 20:36 Ondansetron HCl (Zofran Inj) 4 mg Q6H PRN IV NAUSEA AND/OR VOMITING; Start at 21:00 Acetaminophen (Tylenol Tab) 650 mg Q6H PRN PO PAIN LEVEL 1-3 OR FEVER; Start at 21:00 Morphine Sulfate (morphine) 2 mg Q4H PRN IV PAIN LEVEL 7-10; Start 09/02/16 at 21:00 Enoxaparin Sodium 30 mg 30 mg DAILY SC Last administered on 09/04/16 08:33; Admin Dose 30 MG; Start 09/03/16 at 09:00 Ceftriaxone Sodium (Rocephin) 50 ml @ 100 mls/hr Q24H IVPB Last administered on 09/03/16 21:42; Admin Dose 100 MLS/HR; Start 09/03/16 at 21:00 Aspirin (Halfprin) 81 mg DAILY PO Last administered on 09/04/16 08:22; Admin Dose 81 MG; Start 09/04/16 at 09:00 Docusate Sodium (Colace) 100 mg DAILY PO Last administered on 09/04/16 08:22; Admin Dose 100 MG; Start 09/04/16 at 09:00 Insulin Glargine (Lantus) 10 unit QHS SC Last administered on 09/03/16 21:41; Admin Dose 10 UNIT; Start 09/03/16 at 21:00 Losartan Potassium (Cozaar) 100 mg DAILY PO Last administered on 09/04/16 08: 23; Admin Dose 100 MG; Start 09/04/16 at 09:00 Tamsulosin HCl (Flomax) 0.4 mg DAILY PO Last administered on 09/04/16 08:22; Admin Dose 0.4 MG; Start 09/04/16 at 09:00 Atorvastatin Calcium (Lipitor) 10 mg QHS PO Last administered on 09/03/16 21: 42; Admin Dose 10 MG; Start 09/03/16 at 21:00 Hydralazine HCl (Apresoline) 10 mg Q6H PRN IV SBP>170; Start 09/03/16 at 14:30 Nystatin (Nystatin Cr) 1 applic BID TOP Last administered on 09/04/16 08:33; Admin Dose 1 APPLIC; Start 09/03/16 at 21:00 Miscellaneous Information 1 ea NOTE XX ; Start 09/03/16 at 15:00 Glucose (Glutose) 15 gm Q15M PRN PO DECREASED GLUCOSE; Start 09/03/16 at 15:00 Glucose (Glutose) 22.5 gm Q15M PRN PO DECREASED GLUCOSE; Start 09/03/16 at 15: 00 Dextrose (D50w Syringe) 25 ml Q15M PRN IV DECREASED GLUCOSE; Start 09/03/16 at 15:00 Dextrose (D50w Syringe) 50 ml Q15M PRN IV DECREASED GLUCOSE; Start 09/03/16 at 15:00 Glucagon (Glucagen) 1 mg Q15M PRN IM DECREASED GLUCOSE; Start 09/03/16 at 15:00 Glucose (Glutose) 15 gm Q15M PRN BUCCAL DECREASED GLUCOSE; Start 09/03/16 at 15 :00 Amiodarone HCl (Cordarone) 200 mg DAILY PO Last administered on 09/04/16 08:23 ; Admin Dose 200 MG; Start 09/04/16 at 09:00 Hydralazine HCl (Apresoline) 25 mg BID PO Last administered on 09/04/16 08:24 ; Admin Dose 25 MG; Start 09/04/16 at 09:00 Metoprolol Tartrate (Lopressor) 12.5 mg BID PO Last administered on 09/04/16 08:23; Admin Dose 12.5 MG; Start 09/04/16 at 09:00 Pantoprazole (Protonix Tab) 40 mg DAILY@06 PO Last administered on 09/04/16 05 :11; Admin Dose 40 MG; Start 09/04/16 at 06:00 Sodium Chloride (Nacl) 1 gm TID PO Last administered on 09/04/16 12:58; Admin Dose 1 GM; Start 09/04/16 at 09:00 Ascorbic Acid (Vitamin C) 500 mg BID PO Last administered on 09/04/16 08:22; Admin Dose 500 MG; Start 09/04/16 at 09:00 Lactobacillus Acidophilus/ Rhamnosus (Culturelle) 1 cap DAILY PO Last administered on 09/04/16 08:22; Admin Dose 1 CAP; Start 09/04/16 at 09:00 Zinc Sulfate (Zinc Sulfate) 220 mg DAILY PO Last administered on 09/04/16 08: 22; Admin Dose 220 MG; Start 09/04/16 at 09:00; Stop 09/17/16 at 10:00 Multivitamins/ Minerals (Theragran-M) 1 tab DAILY PO Last administered on 08:22; Admin Dose 1 TAB; Start 09/04/16 at 09:00 Diagnostic Test (Pha) (Accu-Chek) 1 ea 02 XX Last administered on 09/04/16 01: 20; Admin Dose 1 EA; Start 09/04/16 at 02:00 Diagnostic Test (Pha) (Accu-Chek) 1 ea 02 XX ; Start 09/04/16 at 02:00 KARLENE MUÑOZ MD Sep 04, 2016 17:55
--- NOTE | 2016-09-04 18:38 | PN ---
Date/Time of Note Date/Time of Note DATE: 09/04/16 TIME: 18:34 Assessment/Plan VTE Prophylaxis VTE Prophylaxis Intervention: SCD's Lines/Catheters IV C[facility]ter Type (from [facility] Peripheral IV Urinary Cath still in place: No (Condom Cath) Assessment/Plan Chief Complaint/Hosp Course ASSESSMENT AND PLAN: 1. Polymicrobial urinary tract infection, including E. coli ESBL, change antibiotic to meropenem. 2. Possible sepsis secondary to urinary tract infection with leukocytosis and encephalopathy. 3. Severe hyponatremia, improving. Continue IV fluids. Dr. Howard is following in nephrology consultation. 4. Dehydration, resolved. 5. Metastatic prostate carcinoma. 6. Hypertension. Continue Cozaar. 7. Diabetes mellitus. Continue Lantus and NovoLog. Continue Lovenox for deep venous thrombosis prophylaxis and Pepcid for peptic ulcer disease prophylaxis. Further recommendations based on clinical course. Plan of care discussed with Dr. Gregory. Problems: Exam/Review of Systems Vital Signs Vitals Vital Signs Date Time Temp Pulse Resp B/P Pulse Ox O2 Delivery O2 Flow Rate FiO2 09/04/16 07:31 98.2 78 18 138/63 95 09/03/16 09:40 Room Air Intake and Output 09/03/16 09/03/16 09/04/16 15:00 23:00 07:00 Intake Total 1190 ml 1250 ml Output Total 250 ml 350 ml Balance 940 ml 900 ml Exam Constitutional: alert Head: atraumatic, normocephalic Neck: supple Respiratory: normal air movement Cardiovascular: nl pulses Gastrointestinal: non-tender, soft Genitourinary - Male: other Musculoskeletal: muscle weakness Extremities: normal pulses Results Result Diagram: 09/04/16 0430 09/04/16 0430 Results 24 hrs Laboratory Tests Test 09/03/16 21:11 09/04/16 01:23 09/04/16 04:30 09/04/16 08:20 Bedside Glucose 310 H 221 H 126 White Blood Count 9.6 Red Blood Count 3.00 L Hemoglobin 9.0 L Hematocrit 27.0 L Mean Corpuscular Volume 90.0 Mean Corpuscular Hemoglobin 30.0 Mean Corpuscular Hemoglobin Concent 33.3 Red Cell Distribution Width 20.0 H Platelet Count 95 L Mean Platelet Volume 9.5 Neutrophils % 86.3 H Lymphocytes % 7.7 L Monocytes % 4.4 Eosinophils % 0.1 Basophils % 0.1 Nucleated Red Blood Cells % 0.0 Neutrophils # 8.3 H Lymphocytes # 0.7 L Monocytes # 0.4 Eosinophils # 0.0 Basophils # 0.0 Nucleated Red Blood Cells # 0.0 Sodium Level 130 L Potassium Level 4.2 Chloride Level 103 Carbon Dioxide Level 22 Anion Gap 9 Blood Urea Nitrogen 10 Creatinine 0.37 L Glucose Level 157 Calcium Level 7.0 L Phosphorus Level 2.4 L Magnesium Level 1.9 Test 09/04/16 12:57 09/04/16 17:29 Bedside Glucose 103 94 Medications Medications Current Medications Sodium Chloride (NS) 1,000 ml @ 70 mls/hr [id number] IV Last administered on 09/04 12:58; Admin Dose 100 MLS/HR; Start 09/02/16 at 20:36 Ondansetron HCl (Zofran Inj) 4 mg Q6H PRN IV NAUSEA AND/OR VOMITING; Start at 21:00 Acetaminophen (Tylenol Tab) 650 mg Q6H PRN PO PAIN LEVEL 1-3 OR FEVER; Start at 21:00 Morphine Sulfate (morphine) 2 mg Q4H PRN IV PAIN LEVEL 7-10; Start 09/02/16 at 21:00 Enoxaparin Sodium 30 mg 30 mg DAILY SC Last administered on 09/04/16 08:33; Admin Dose 30 MG; Start 09/03/16 at 09:00 Ceftriaxone Sodium (Rocephin) 50 ml @ 100 mls/hr Q24H IVPB Last administered on 09/03/16 21:42; Admin Dose 100 MLS/HR; Start 09/03/16 at 21:00 Aspirin (Halfprin) 81 mg DAILY PO Last administered on 09/04/16 08:22; Admin Dose 81 MG; Start 09/04/16 at 09:00 Docusate Sodium (Colace) 100 mg DAILY PO Last administered on 09/04/16 08:22; Admin Dose 100 MG; Start 09/04/16 at 09:00 Insulin Glargine (Lantus) 10 unit QHS SC Last administered on 09/03/16 21:41; Admin Dose 10 UNIT; Start 09/03/16 at 21:00 Losartan Potassium (Cozaar) 100 mg DAILY PO Last administered on 09/04/16 08: 23; Admin Dose 100 MG; Start 09/04/16 at 09:00 Tamsulosin HCl (Flomax) 0.4 mg DAILY PO Last administered on 09/04/16 08:22; Admin Dose 0.4 MG; Start 09/04/16 at 09:00 Atorvastatin Calcium (Lipitor) 10 mg QHS PO Last administered on 09/03/16 21: 42; Admin Dose 10 MG; Start 09/03/16 at 21:00 Hydralazine HCl (Apresoline) 10 mg Q6H PRN IV SBP>170; Start 09/03/16 at 14:30 Nystatin (Nystatin Cr) 1 applic BID TOP Last administered on 09/04/16 08:33; Admin Dose 1 APPLIC; Start 09/03/16 at 21:00 Miscellaneous Information 1 ea NOTE XX ; Start 09/03/16 at 15:00 Glucose (Glutose) 15 gm Q15M PRN PO DECREASED GLUCOSE; Start 09/03/16 at 15:00 Glucose (Glutose) 22.5 gm Q15M PRN PO DECREASED GLUCOSE; Start 09/03/16 at 15: 00 Dextrose (D50w Syringe) 25 ml Q15M PRN IV DECREASED GLUCOSE; Start 09/03/16 at 15:00 Dextrose (D50w Syringe) 50 ml Q15M PRN IV DECREASED GLUCOSE; Start 09/03/16 at 15:00 Glucagon (Glucagen) 1 mg Q15M PRN IM DECREASED GLUCOSE; Start 09/03/16 at 15:00 Glucose (Glutose) 15 gm Q15M PRN BUCCAL DECREASED GLUCOSE; Start 09/03/16 at 15 :00 Amiodarone HCl (Cordarone) 200 mg DAILY PO Last administered on 09/04/16 08:23 ; Admin Dose 200 MG; Start 09/04/16 at 09:00 Hydralazine HCl (Apresoline) 25 mg BID PO Last administered on 09/04/16 08:24 ; Admin Dose 25 MG; Start 09/04/16 at 09:00 Metoprolol Tartrate (Lopressor) 12.5 mg BID PO Last administered on 09/04/16 08:23; Admin Dose 12.5 MG; Start 09/04/16 at 09:00 Pantoprazole (Protonix Tab) 40 mg DAILY@06 PO Last administered on 09/04/16 05 :11; Admin Dose 40 MG; Start 09/04/16 at 06:00 Sodium Chloride (Nacl) 1 gm TID PO Last administered on 09/04/16 12:58; Admin Dose 1 GM; Start 09/04/16 at 09:00 Ascorbic Acid (Vitamin C) 500 mg BID PO Last administered on 09/04/16 08:22; Admin Dose 500 MG; Start 09/04/16 at 09:00 Lactobacillus Acidophilus/ Rhamnosus (Culturelle) 1 cap DAILY PO Last administered on 09/04/16 08:22; Admin Dose 1 CAP; Start 09/04/16 at 09:00 Zinc Sulfate (Zinc Sulfate) 220 mg DAILY PO Last administered on 09/04/16 08: 22; Admin Dose 220 MG; Start 09/04/16 at 09:00; Stop 09/17/16 at 10:00 Multivitamins/ Minerals (Theragran-M) 1 tab DAILY PO Last administered on 08:22; Admin Dose 1 TAB; Start 09/04/16 at 09:00 Diagnostic Test (Pha) (Accu-Chek) 1 ea 02 XX Last administered on 09/04/16 01: 20; Admin Dose 1 EA; Start 09/04/16 at 02:00 Diagnostic Test (Pha) (Accu-Chek) 1 ea 02 XX ; Start 09/04/16 at 02:00 ROBERT CORRALES Sep 04, 2016 18:38
[2016-09-04 19:56] VITALS: BP 130/60; RESP 20
[2016-09-04] MEDS: MEROPENEM 500 MG/100 ML (PMX) 100 ML IVPB SCH (21:33)
[2016-09-04] MEDS: ATORVASTATIN 10 MG TAB PO SCH (21:34)
[2016-09-04] MEDS: INSULIN GLARGINE [LANtus] 3 ML PEN SC SCH (21:37)
[2016-09-05] MEDS: SOD CHLORIDE 0.9% 1,000 ML IV SCH ×2 (00:58→14:46)
[2016-09-05] MEDS: ACCU-CHEK XX SCH (02:00)
[2016-09-05] MEDS: PANTOPRAZOLE (EC) 40 MG TAB PO SCH (05:48)
[2016-09-05 06:00] LABS: ADD SCAN DIFF NO
[2016-09-05 06:22] LABS: BASOPHILS % 0.1 % (0.0-2.0); HEMATOCRIT 26.6 % (42.0-52.0); LYMPHOCYTES # 0.7 10^3/ul (0.8-2.9); LYMPHOCYTES % 6.2 % (15.0-51.0); MEAN CORPUSCULAR HEMOGLOBIN 30.5 pg (29.0-33.0); MEAN CORPUSCULAR HGB CONC 33.8 g/dl (32.0-37.0); MEAN CORPUSCULAR VOLUME 90.2 fl (82.0-101.0); MEAN PLATELET VOLUME 9.4 fl (7.4-10.4); MONOCYTE # 0.5 10^3/ul (0.3-0.9); MONOCYTES % 4.9 % (0.0-11.0); NEUTROPHIL # 9.4 10^3/ul (1.6-7.5); NEUTROPHILS % 87.9 % (39.0-77.0); PLATELET COUNT 107 10^3/UL (140-415); RED BLOOD COUNT 2.95 10^6/ul (4.70-6.10); RED CELL DISTRIBUTION WIDTH 20.5 % (11.5-14.5); WHITE BLOOD COUNT 10.7 10^3/ul (4.8-10.8)
[2016-09-05 06:59] LABS: CALCIUM 6.9 mg/dl (8.4-10.2); CREATININE 0.41 mg/dl (0.61-1.24); POTASSIUM 3.7 mmol/L (3.5-5.1)
[2016-09-05] MEDS: INSULIN ASPART [NOVOLOG] 3 ML PEN SC SCH ×7 (07:56→21:00)
[2016-09-05 08:05] VITALS: BP 116/49; RESP 18
[2016-09-05] MEDS: ZINC SULFATE 220 MG CAP PO SCH (09:41)
[2016-09-05] MEDS: MULTIVITAMINS/MINERALS TAB PO SCH (09:41)
[2016-09-05] MEDS: TAMSULOSIN (SR) 0.4 MG CAP PO SCH (09:41)
[2016-09-05] MEDS: DOCUSATE SODIUM 100 MG CAP PO SCH (09:41)
[2016-09-05] MEDS: ASCORBIC ACID 500 MG TAB PO SCH ×2 (09:41→21:30)
[2016-09-05] MEDS: METOPROLOL 25 MG TAB PO SCH ×2 (09:42→21:00)
[2016-09-05] MEDS: SODIUM CHLORIDE 1 GM TAB PO SCH ×3 (09:42→21:30)
[2016-09-05] MEDS: ASPIRIN (EC) 81 MG TAB PO SCH (09:42)
[2016-09-05] MEDS: LACTOBACILLUS RHAMNOSUS CAP PO SCH (09:43)
[2016-09-05] MEDS: AMIODARONE 200 MG TAB PO SCH (09:43)
[2016-09-05] MEDS: LOSARTAN 50 MG TAB PO SCH (09:43)
[2016-09-05] MEDS: ENOXAPARIN 30 MG/0.3 ML SYG SC SCH (09:49)
[2016-09-05] MEDS: MEROPENEM 500 MG/100 ML (PMX) 100 ML IVPB SCH ×2 (09:52→21:28)
[2016-09-05] MEDS: NYSTATIN 15 GM CR TOP SCH ×2 (09:54→21:31)
[2016-09-05] MEDS: BALSAM PERU/CASTOR OIL 60 GM TUBE TOP SCH (14:45)
--- NOTE | 2016-09-05 17:13 | CONS ---
Date/Time of Note Date/Time of Note DATE: 09/05/16 TIME: 17:11 Assessment/Plan Assessment/Plan Additional Assessment/Plan 1. Severe hyponatremia with sodium 116 on admission, likely secondary to a combination of syndrome of inappropriate antidiuretic hormone and hypovolemic hyponatremia. 2. Acute metabolic encephalopathy from severe hyponatremia and urinary tract infection. 3. Urinary tract infection. 4. 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 Required tolvaptan on last admission. 5. History of metastatic prostate cancer. 6. History of hypertension. 7. History of hyperlipidemia. 8. History of bilateral knee arthritis. 9. Acute hyperkalemia secondary to possible prerenal azotemia, resolved. PLAN: S/p 3 % saline, currenlty on IVF NS 70 cc/hr- na 131 IV a bx meropenem will follo wup Consultation Date/Type/Reason Admit Date/Time Sep 03, 2016 at 07:04 Type of Consultation: NEPHROLOGY Reason for Consultation hyponatremia, severe Referring Provider: CHANELLE PAUL MD 24 HR Interval Summary Free Text/Dictation Na imrpoved to 131, BS in 300s, Exam/Review of Systems Vital Signs Vitals Vital Signs Date Time Temp Pulse Resp B/P Pulse Ox O2 Delivery O2 Flow Rate FiO2 09/05/16 08:05 97.5 74 18 116/49 95 09/03/16 09:40 Room Air Intake and Output 09/04/16 09/04/16 09/05/16 15:00 23:00 07:00 Intake Total 1000 ml 1620 ml 1430 ml Output Total 600 ml 400 ml Balance 1000 ml 1020 ml 1030 ml Results Result Diagram: 09/05/16 0423 09/05/16 0423 Results 24 hrs Laboratory Tests Test 09/04/16 17:29 09/04/16 21:29 09/05/16 04:23 09/05/16 07:49 Bedside Glucose 94 86 184 White Blood Count 10.7 Red Blood Count 2.95 L Hemoglobin 9.0 L Hematocrit 26.6 L Mean Corpuscular Volume 90.2 Mean Corpuscular Hemoglobin 30.5 Mean Corpuscular Hemoglobin Concent 33.8 Red Cell Distribution Width 20.5 H Platelet Count 107 L Mean Platelet Volume 9.4 Neutrophils % 87.9 H Lymphocytes % 6.2 L Monocytes % 4.9 Eosinophils % 0.0 Basophils % 0.1 Nucleated Red Blood Cells % 0.0 Neutrophils # 9.4 H Lymphocytes # 0.7 L Monocytes # 0.5 Eosinophils # 0.0 Basophils # 0.0 Nucleated Red Blood Cells # 0.0 Sodium Level 131 L Potassium Level 3.7 Chloride Level 106 Carbon Dioxide Level 20 L Anion Gap 9 Blood Urea Nitrogen 14 Creatinine 0.41 L Glucose Level 170 Calcium Level 6.9 L Test 09/05/16 12:14 Bedside Glucose 322 H Medications Medications Current Medications Sodium Chloride (NS) 1,000 ml @ 70 mls/hr [id number] IV Last administered on 09/05 14:46; Admin Dose 70 MLS/HR; Start 09/02/16 at 20:36 Ondansetron HCl (Zofran Inj) 4 mg Q6H PRN IV NAUSEA AND/OR VOMITING; Start at 21:00 Acetaminophen (Tylenol Tab) 650 mg Q6H PRN PO PAIN LEVEL 1-3 OR FEVER; Start at 21:00 Morphine Sulfate (morphine) 2 mg Q4H PRN IV PAIN LEVEL 7-10; Start 09/02/16 at 21:00 Enoxaparin Sodium (Lovenox) 30 mg DAILY SC Last administered on 09/05/16 09:49 ; Admin Dose 30 MG; Start 09/03/16 at 09:00 Aspirin (Halfprin) 81 mg DAILY PO Last administered on 09/05/16 09:42; Admin Dose 81 MG; Start 09/04/16 at 09:00 Docusate Sodium (Colace) 100 mg DAILY PO Last administered on 09/05/16 09:41; Admin Dose 100 MG; Start 09/04/16 at 09:00 Insulin Glargine (Lantus) 10 unit QHS SC Last administered on 09/04/16 21:37; Admin Dose 10 UNIT; Start 09/03/16 at 21:00 Losartan Potassium (Cozaar) 100 mg DAILY PO Last administered on 09/05/16 09: 43; Admin Dose 100 MG; Start 09/04/16 at 09:00 Tamsulosin HCl (Flomax) 0.4 mg DAILY PO Last administered on 09/05/16 09:41; Admin Dose 0.4 MG; Start 09/04/16 at 09:00 Atorvastatin Calcium (Lipitor) 10 mg QHS PO Last administered on 09/04/16 21: 34; Admin Dose 10 MG; Start 09/03/16 at 21:00 Hydralazine HCl (Apresoline) 10 mg Q6H PRN IV SBP>170; Start 09/03/16 at 14:30 Nystatin (Nystatin Cr) 1 applic BID TOP Last administered on 09/05/16 09:54; Admin Dose 1 APPLIC; Start 09/03/16 at 21:00 Miscellaneous Information 1 ea NOTE XX ; Start 09/03/16 at 15:00 Glucose (Glutose) 15 gm Q15M PRN PO DECREASED GLUCOSE; Start 09/03/16 at 15:00 Glucose (Glutose) 22.5 gm Q15M PRN PO DECREASED GLUCOSE; Start 09/03/16 at 15: 00 Dextrose (D50w Syringe) 25 ml Q15M PRN IV DECREASED GLUCOSE; Start 09/03/16 at 15:00 Dextrose (D50w Syringe) 50 ml Q15M PRN IV DECREASED GLUCOSE; Start 09/03/16 at 15:00 Glucagon (Glucagen) 1 mg Q15M PRN IM DECREASED GLUCOSE; Start 09/03/16 at 15:00 Glucose (Glutose) 15 gm Q15M PRN BUCCAL DECREASED GLUCOSE; Start 09/03/16 at 15 :00 Amiodarone HCl (Cordarone) 200 mg DAILY PO Last administered on 09/05/16 09:43 ; Admin Dose 200 MG; Start 09/04/16 at 09:00 Hydralazine HCl (Apresoline) 25 mg BID PO Last administered on 09/04/16 21:35 ; Admin Dose 25 MG; Start 09/04/16 at 09:00 Metoprolol Tartrate (Lopressor) 12.5 mg BID PO Last administered on 09/05/16 09:42; Admin Dose 12.5 MG; Start 09/04/16 at 09:00 Pantoprazole (Protonix Tab) 40 mg DAILY@06 PO Last administered on 09/05/16 05 :48; Admin Dose 40 MG; Start 09/04/16 at 06:00 Sodium Chloride (Nacl) 1 gm TID PO Last administered on 09/05/16 12:15; Admin Dose 1 GM; Start 09/04/16 at 09:00 Ascorbic Acid (Vitamin C) 500 mg BID PO Last administered on 09/05/16 09:41; Admin Dose 500 MG; Start 09/04/16 at 09:00 Lactobacillus Acidophilus/ Rhamnosus (Culturelle) 1 cap DAILY PO Last administered on 09/05/16 09:43; Admin Dose 1 CAP; Start 09/04/16 at 09:00 Zinc Sulfate (Zinc Sulfate) 220 mg DAILY PO Last administered on 09/05/16 09: 41; Admin Dose 220 MG; Start 09/04/16 at 09:00; Stop 09/17/16 at 10:00 Multivitamins/ Minerals (Theragran-M) 1 tab DAILY PO Last administered on 09:41; Admin Dose 1 TAB; Start 09/04/16 at 09:00 Diagnostic Test (Pha) 1 ea 1 ea 02 XX Last administered on 09/04/16 01:20; Admin Dose 1 EA; Start 09/04/16 at 02:00 Meropenem (Merrem 500 Mg/ 100 ml (Pmx)) 100 ml @ 200 mls/hr Q12 IVPB Last administered on 09/05/16 09:52; Admin Dose 200 MLS/HR; Start 09/04/16 at 21:00 KARLENE MUÑOZ MD Sep 05, 2016 17:13
--- NOTE | 2016-09-05 18:18 | PN ---
Date/Time of Note Date/Time of Note DATE: 09/05/16 TIME: 18:16 Assessment/Plan VTE Prophylaxis VTE Prophylaxis Intervention: SCD's Lines/Catheters IV C[facility]ter Type ([facility] Peripheral IV Urinary Cath still in place: No (Condom Cath) Assessment/Plan Chief Complaint/Hosp Course ASSESSMENT AND PLAN: 1. Polymicrobial urinary tract infection, including E. coli ESBL, continue meropenem. Dr. Rodrigues is following infection disease consultation. 2. Possible sepsis secondary to urinary tract infection with leukocytosis and encephalopathy. 3. Severe hyponatremia, improving. Continue IV fluids. Dr. Howard is following in nephrology consultation. 4. Dehydration, resolved. 5. Metastatic prostate carcinoma. 6. Hypertension. Continue Cozaar. 7. Diabetes mellitus. Continue Lantus and NovoLog. Continue Lovenox for deep venous thrombosis prophylaxis and Pepcid for peptic ulcer disease prophylaxis. Further recommendations based on clinical course. Plan of care discussed with Dr. Gregory. Problems: Exam/Review of Systems Vital Signs Vitals Vital Signs Date Time Temp Pulse Resp B/P Pulse Ox O2 Delivery O2 Flow Rate FiO2 09/05/16 08:05 97.5 74 18 116/49 95 09/03/16 09:40 Room Air Intake and Output 09/04/16 09/04/16 09/05/16 15:00 23:00 07:00 Intake Total 1000 ml 1620 ml 1430 ml Output Total 600 ml 400 ml Balance 1000 ml 1020 ml 1030 ml Exam Constitutional: alert Head: atraumatic, normocephalic Neck: supple Respiratory: normal air movement Cardiovascular: nl pulses Gastrointestinal: non-tender, soft Genitourinary - Male: other Musculoskeletal: muscle weakness Extremities: normal pulses Results Result Diagram: 09/05/16 0423 09/05/16 0423 Results 24 hrs Laboratory Tests Test 09/04/16 21:29 09/05/16 04:23 09/05/16 07:49 09/05/16 12:14 Bedside Glucose 86 184 322 H White Blood Count 10.7 Red Blood Count 2.95 L Hemoglobin 9.0 L Hematocrit 26.6 L Mean Corpuscular Volume 90.2 Mean Corpuscular Hemoglobin 30.5 Mean Corpuscular Hemoglobin Concent 33.8 Red Cell Distribution Width 20.5 H Platelet Count 107 L Mean Platelet Volume 9.4 Neutrophils % 87.9 H Lymphocytes % 6.2 L Monocytes % 4.9 Eosinophils % 0.0 Basophils % 0.1 Nucleated Red Blood Cells % 0.0 Neutrophils # 9.4 H Lymphocytes # 0.7 L Monocytes # 0.5 Eosinophils # 0.0 Basophils # 0.0 Nucleated Red Blood Cells # 0.0 Sodium Level 131 L Potassium Level 3.7 Chloride Level 106 Carbon Dioxide Level 20 L Anion Gap 9 Blood Urea Nitrogen 14 Creatinine 0.41 L Glucose Level 170 Calcium Level 6.9 L Test 09/05/16 17:30 Bedside Glucose 185 Medications Medications Current Medications Sodium Chloride (NS) 1,000 ml @ 70 mls/hr [id number] IV Last administered on 09/05 14:46; Admin Dose 70 MLS/HR; Start 09/02/16 at 20:36 Ondansetron HCl (Zofran Inj) 4 mg Q6H PRN IV NAUSEA AND/OR VOMITING; Start at 21:00 Acetaminophen (Tylenol Tab) 650 mg Q6H PRN PO PAIN LEVEL 1-3 OR FEVER; Start at 21:00 Morphine Sulfate (morphine) 2 mg Q4H PRN IV PAIN LEVEL 7-10; Start 09/02/16 at 21:00 Enoxaparin Sodium (Lovenox) 30 mg DAILY SC Last administered on 09/05/16 09:49 ; Admin Dose 30 MG; Start 09/03/16 at 09:00 Aspirin (Halfprin) 81 mg DAILY PO Last administered on 09/05/16 09:42; Admin Dose 81 MG; Start 09/04/16 at 09:00 Docusate Sodium (Colace) 100 mg DAILY PO Last administered on 09/05/16 09:41; Admin Dose 100 MG; Start 09/04/16 at 09:00 Insulin Glargine (Lantus) 10 unit QHS SC Last administered on 09/04/16 21:37; Admin Dose 10 UNIT; Start 09/03/16 at 21:00 Losartan Potassium (Cozaar) 100 mg DAILY PO Last administered on 09/05/16 09: 43; Admin Dose 100 MG; Start 09/04/16 at 09:00 Tamsulosin HCl (Flomax) 0.4 mg DAILY PO Last administered on 09/05/16 09:41; Admin Dose 0.4 MG; Start 09/04/16 at 09:00 Atorvastatin Calcium (Lipitor) 10 mg QHS PO Last administered on 09/04/16 21: 34; Admin Dose 10 MG; Start 09/03/16 at 21:00 Hydralazine HCl (Apresoline) 10 mg Q6H PRN IV SBP>170; Start 09/03/16 at 14:30 Nystatin (Nystatin Cr) 1 applic BID TOP Last administered on 09/05/16 09:54; Admin Dose 1 APPLIC; Start 09/03/16 at 21:00 Miscellaneous Information 1 ea NOTE XX ; Start 09/03/16 at 15:00 Glucose (Glutose) 15 gm Q15M PRN PO DECREASED GLUCOSE; Start 09/03/16 at 15:00 Glucose (Glutose) 22.5 gm Q15M PRN PO DECREASED GLUCOSE; Start 09/03/16 at 15: 00 Dextrose (D50w Syringe) 25 ml Q15M PRN IV DECREASED GLUCOSE; Start 09/03/16 at 15:00 Dextrose (D50w Syringe) 50 ml Q15M PRN IV DECREASED GLUCOSE; Start 09/03/16 at 15:00 Glucagon (Glucagen) 1 mg Q15M PRN IM DECREASED GLUCOSE; Start 09/03/16 at 15:00 Glucose (Glutose) 15 gm Q15M PRN BUCCAL DECREASED GLUCOSE; Start 09/03/16 at 15 :00 Amiodarone HCl (Cordarone) 200 mg DAILY PO Last administered on 09/05/16 09:43 ; Admin Dose 200 MG; Start 09/04/16 at 09:00 Hydralazine HCl (Apresoline) 25 mg BID PO Last administered on 09/04/16 21:35 ; Admin Dose 25 MG; Start 09/04/16 at 09:00 Metoprolol Tartrate (Lopressor) 12.5 mg BID PO Last administered on 09/05/16 09:42; Admin Dose 12.5 MG; Start 09/04/16 at 09:00 Pantoprazole (Protonix Tab) 40 mg DAILY@06 PO Last administered on 09/05/16 05 :48; Admin Dose 40 MG; Start 09/04/16 at 06:00 Sodium Chloride (Nacl) 1 gm TID PO Last administered on 09/05/16 12:15; Admin Dose 1 GM; Start 09/04/16 at 09:00 Ascorbic Acid (Vitamin C) 500 mg BID PO Last administered on 09/05/16 09:41; Admin Dose 500 MG; Start 09/04/16 at 09:00 Lactobacillus Acidophilus/ Rhamnosus (Culturelle) 1 cap DAILY PO Last administered on 09/05/16 09:43; Admin Dose 1 CAP; Start 09/04/16 at 09:00 Zinc Sulfate (Zinc Sulfate) 220 mg DAILY PO Last administered on 09/05/16 09: 41; Admin Dose 220 MG; Start 09/04/16 at 09:00; Stop 09/17/16 at 10:00 Multivitamins/ Minerals (Theragran-M) 1 tab DAILY PO Last administered on 09:41; Admin Dose 1 TAB; Start 09/04/16 at 09:00 Diagnostic Test (Pha) 1 ea 1 ea 02 XX Last administered on 09/04/16 01:20; Admin Dose 1 EA; Start 09/04/16 at 02:00 Meropenem (Merrem 500 Mg/ 100 ml (Pmx)) 100 ml @ 200 mls/hr Q12 IVPB Last administered on 09/05/16 09:52; Admin Dose 200 MLS/HR; Start 09/04/16 at 21:00 ROBERT CORRALES Sep 05, 2016 18:18
[2016-09-05 20:00] VITALS: BP 109/55; RESP 21
[2016-09-05] MEDS: INSULIN GLARGINE [LANtus] 3 ML PEN SC SCH (21:29)
[2016-09-05] MEDS: ATORVASTATIN 10 MG TAB PO SCH (21:30)
[2016-09-06] MEDS: ACCU-CHEK XX SCH (02:00)
[2016-09-06] MEDS: SOD CHLORIDE 0.9% 1,000 ML IV SCH ×2 (05:44→19:30)
[2016-09-06] MEDS: PANTOPRAZOLE (EC) 40 MG TAB PO SCH (05:44)
[2016-09-06 06:01] LABS: ADD SCAN DIFF NO
[2016-09-06 06:08] LABS: BASOPHILS % 0.1 % (0.0-2.0); EOSINOPHILS % 0.1 % (0.0-7.0); HEMATOCRIT 25.9 % (42.0-52.0); HEMOGLOBIN 8.5 g/dl (14.0-18.0); LYMPHOCYTES # 0.7 10^3/ul (0.8-2.9); LYMPHOCYTES % 7.1 % (15.0-51.0); MEAN CORPUSCULAR HGB CONC 32.8 g/dl (32.0-37.0); MEAN CORPUSCULAR VOLUME 91.5 fl (82.0-101.0); MEAN PLATELET VOLUME 9.8 fl (7.4-10.4); MONOCYTE # 0.5 10^3/ul (0.3-0.9); MONOCYTES % 5.1 % (0.0-11.0); NEUTROPHIL # 8.3 10^3/ul (1.6-7.5); NEUTROPHILS % 86.6 % (39.0-77.0); PLATELET COUNT 111 10^3/UL (140-415); RED BLOOD COUNT 2.83 10^6/ul (4.70-6.10); RED CELL DISTRIBUTION WIDTH 20.6 % (11.5-14.5); WHITE BLOOD COUNT 9.6 10^3/ul (4.8-10.8)
[2016-09-06 06:37] LABS: CALCIUM 6.8 mg/dl (8.4-10.2); CREATININE 0.38 mg/dl (0.61-1.24); POTASSIUM 3.5 mmol/L (3.5-5.1)
[2016-09-06 07:33] VITALS: BP 129/61; RESP 18
[2016-09-06] MEDS: MULTIVITAMINS/MINERALS TAB PO SCH (09:11)
[2016-09-06] MEDS: LACTOBACILLUS RHAMNOSUS CAP PO SCH (09:11)
[2016-09-06] MEDS: ASCORBIC ACID 500 MG TAB PO SCH ×2 (09:11→21:45)
[2016-09-06] MEDS: MEROPENEM 500 MG/100 ML (PMX) 100 ML IVPB SCH ×2 (09:11→21:25)
[2016-09-06] MEDS: DOCUSATE SODIUM 100 MG CAP PO SCH (09:11)
[2016-09-06] MEDS: METOPROLOL 25 MG TAB PO SCH ×2 (09:13→21:36)
[2016-09-06] MEDS: AMIODARONE 200 MG TAB PO SCH (09:13)
[2016-09-06] MEDS: ASPIRIN (EC) 81 MG TAB PO SCH (09:13)
[2016-09-06] MEDS: LOSARTAN 50 MG TAB PO SCH (09:14)
[2016-09-06] MEDS: TAMSULOSIN (SR) 0.4 MG CAP PO SCH (09:17)
[2016-09-06] MEDS: SODIUM CHLORIDE 1 GM TAB PO SCH ×3 (09:17→21:45)
[2016-09-06] MEDS: ENOXAPARIN 30 MG/0.3 ML SYG SC SCH (09:18)
[2016-09-06] MEDS: INSULIN ASPART [NOVOLOG] 3 ML PEN SC SCH ×7 (09:19→21:00)
[2016-09-06] MEDS: BALSAM PERU/CASTOR OIL 60 GM TUBE TOP SCH (09:21)
[2016-09-06] MEDS: NYSTATIN 15 GM CR TOP SCH ×2 (09:21→21:46)
[2016-09-06] MEDS: ZINC SULFATE 220 MG CAP PO SCH (11:34)
--- NOTE | 2016-09-06 12:10 | CONS ---
Date/Time of Note Date/Time of Note DATE: 09/06/16 TIME: 12:07 Assessment/Plan Assessment/Plan Additional Assessment/Plan 1. Severe hyponatremia with sodium 116 on admission, likely secondary to a combination of syndrome of inappropriate antidiuretic hormone and hypovolemic hyponatremia. 2. Acute metabolic encephalopathy from severe hyponatremia and urinary tract infection. 3. Urinary tract infection. 4. 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 Required tolvaptan on last admission. 5. History of metastatic prostate cancer. 6. History of hypertension. 7. History of hyperlipidemia. 8. History of bilateral knee arthritis. 9. Acute hyperkalemia secondary to possible prerenal azotemia, resolved. PLAN: S/p 3 % saline, currenlty on IVF NS 70 cc/hr- na 135 IV a bx meropenem will follo wup Consultation Date/Type/Reason Admit Date/Time Sep 03, 2016 at 07:04 Type of Consultation: NEPHROLOGY Referring Provider: CHANELLE PAUL MD 24 HR Interval Summary Free Text/Dictation doing ok, BP stable, Na 135 Exam/Review of Systems Vital Signs Vitals Vital Signs Date Time Temp Pulse Resp B/P Pulse Ox O2 Delivery O2 Flow Rate FiO2 09/06/16 07:33 97.7 82 18 129/61 95 09/03/16 09:40 Room Air Intake and Output 09/05/16 09/05/16 09/06/16 15:00 23:00 07:00 Intake Total 100 ml 910 ml 1030 ml Output Total 400 ml 150 ml Balance 100 ml 510 ml 880 ml Exam GENERAL: Awake, alert, not oriented to place, person, and time. HEENT: Pupils equal and round, reactive to light and accommodation. Extraocular muscles are intact. NECK: Supple. No JVD, no lymphadenopathy. LUNGS: Clear to auscultation. No crackles or wheezes. HEART: S1, S2 with regular rhythm. No murmur. ABDOMEN: Soft, nontender, nondistended. Bowel sounds are present. EXTREMITIES: No clubbing, cyanosis, edema. NEUROLOGICAL: Uncooperative for exam. Results Result Diagram: 09/06/16 0550 09/06/16 0550 Results 24 hrs Laboratory Tests Test 09/05/16 12:14 09/05/16 17:30 09/05/16 21:27 09/06/16 05:50 Bedside Glucose 322 H 185 72 White Blood Count 9.6 Red Blood Count 2.83 L Hemoglobin 8.5 L Hematocrit 25.9 L Mean Corpuscular Volume 91.5 Mean Corpuscular Hemoglobin 30.0 Mean Corpuscular Hemoglobin Concent 32.8 Red Cell Distribution Width 20.6 H Platelet Count 111 L Mean Platelet Volume 9.8 Neutrophils % 86.6 H Lymphocytes % 7.1 L Monocytes % 5.1 Eosinophils % 0.1 Basophils % 0.1 Nucleated Red Blood Cells % 0.0 Neutrophils # 8.3 H Lymphocytes # 0.7 L Monocytes # 0.5 Eosinophils # 0.0 Basophils # 0.0 Nucleated Red Blood Cells # 0.0 Sodium Level 135 Potassium Level 3.5 Chloride Level 110 Carbon Dioxide Level 20 L Anion Gap 9 Blood Urea Nitrogen 14 Creatinine 0.38 L Glucose Level 145 Calcium Level 6.8 L Test 09/06/16 07:49 09/06/16 11:32 Bedside Glucose 169 173 Medications Medications Current Medications Sodium Chloride (NS) 1,000 ml @ 70 mls/hr [id number] IV Last administered on 09/06 05:44; Admin Dose 70 MLS/HR; Start 09/02/16 at 20:36 Ondansetron HCl (Zofran Inj) 4 mg Q6H PRN IV NAUSEA AND/OR VOMITING; Start at 21:00 Acetaminophen (Tylenol Tab) 650 mg Q6H PRN PO PAIN LEVEL 1-3 OR FEVER; Start at 21:00 Morphine Sulfate (morphine) 2 mg Q4H PRN IV PAIN LEVEL 7-10; Start 09/02/16 at 21:00 Enoxaparin Sodium (Lovenox) 30 mg DAILY SC Last administered on 09/06/16 09:18 ; Admin Dose 30 MG; Start 09/03/16 at 09:00 Aspirin (Halfprin) 81 mg DAILY PO Last administered on 09/06/16 09:13; Admin Dose 81 MG; Start 09/04/16 at 09:00 Docusate Sodium (Colace) 100 mg DAILY PO Last administered on 09/06/16 09:11; Admin Dose 100 MG; Start 09/04/16 at 09:00 Insulin Glargine (Lantus) 10 unit QHS SC Last administered on 09/05/16 21:29; Admin Dose 10 UNIT; Start 09/03/16 at 21:00 Losartan Potassium (Cozaar) 100 mg DAILY PO Last administered on 09/06/16 09: 14; Admin Dose 100 MG; Start 09/04/16 at 09:00 Tamsulosin HCl (Flomax) 0.4 mg DAILY PO Last administered on 09/06/16 09:17; Admin Dose 0.4 MG; Start 09/04/16 at 09:00 Atorvastatin Calcium (Lipitor) 10 mg QHS PO Last administered on 09/05/16 21: 30; Admin Dose 10 MG; Start 09/03/16 at 21:00 Hydralazine HCl (Apresoline) 10 mg Q6H PRN IV SBP>170; Start 09/03/16 at 14:30 Nystatin (Nystatin Cr) 1 applic BID TOP Last administered on 09/06/16 09:21; Admin Dose 1 APPLIC; Start 09/03/16 at 21:00 Miscellaneous Information 1 ea NOTE XX ; Start 09/03/16 at 15:00 Glucose (Glutose) 15 gm Q15M PRN PO DECREASED GLUCOSE; Start 09/03/16 at 15:00 Glucose (Glutose) 22.5 gm Q15M PRN PO DECREASED GLUCOSE; Start 09/03/16 at 15: 00 Dextrose (D50w Syringe) 25 ml Q15M PRN IV DECREASED GLUCOSE; Start 09/03/16 at 15:00 Dextrose (D50w Syringe) 50 ml Q15M PRN IV DECREASED GLUCOSE; Start 09/03/16 at 15:00 Glucagon (Glucagen) 1 mg Q15M PRN IM DECREASED GLUCOSE; Start 09/03/16 at 15:00 Glucose (Glutose) 15 gm Q15M PRN BUCCAL DECREASED GLUCOSE; Start 09/03/16 at 15 :00 Amiodarone HCl (Cordarone) 200 mg DAILY PO Last administered on 09/06/16 09:13 ; Admin Dose 200 MG; Start 09/04/16 at 09:00 Hydralazine HCl (Apresoline) 25 mg BID PO Last administered on 09/06/16 09:14 ; Admin Dose 25 MG; Start 09/04/16 at 09:00 Metoprolol Tartrate (Lopressor) 12.5 mg BID PO Last administered on 09/06/16 09:13; Admin Dose 12.5 MG; Start 09/04/16 at 09:00 Pantoprazole (Protonix Tab) 40 mg DAILY@06 PO Last administered on 09/06/16 05 :44; Admin Dose 40 MG; Start 09/04/16 at 06:00 Sodium Chloride (Nacl) 1 gm TID PO Last administered on 09/06/16 09:17; Admin Dose 1 GM; Start 09/04/16 at 09:00 Ascorbic Acid (Vitamin C) 500 mg BID PO Last administered on 09/06/16 09:11; Admin Dose 500 MG; Start 09/04/16 at 09:00 Lactobacillus Acidophilus/ Rhamnosus (Culturelle) 1 cap DAILY PO Last administered on 09/06/16 09:11; Admin Dose 1 CAP; Start 09/04/16 at 09:00 Zinc Sulfate (Zinc Sulfate) 220 mg DAILY PO Last administered on 09/06/16 11: 34; Admin Dose 220 MG; Start 09/04/16 at 09:00; Stop 09/17/16 at 10:00 Multivitamins/ Minerals (Theragran-M) 1 tab DAILY PO Last administered on 09:11; Admin Dose 1 TAB; Start 09/04/16 at 09:00 Diagnostic Test (Pha) 1 ea 1 ea 02 XX Last administered on 09/04/16 01:20; Admin Dose 1 EA; Start 09/04/16 at 02:00 Meropenem (Merrem 500 Mg/ 100 ml (Pmx)) 100 ml @ 200 mls/hr Q12 IVPB Last administered on 09/06/16 09:11; Admin Dose 200 MLS/HR; Start 09/04/16 at 21:00 KARLENE MUÑOZ MD Sep 06, 2016 12:09
[2016-09-06] MEDS ORDERED: VANCOMYCIN IV PER PHARMACY XX SCH (14:00)
[2016-09-06] MEDS ORDERED: FLUCONAZOLE 100 MG TAB PO SCH (14:00)
--- NOTE | 2016-09-06 14:00 | CONS ---
Date/Time of Note Date/Time of Note DATE: 09/06/16 TIME: 13:53 Assessment/Plan Assessment/Plan Chief Complaint/Hosp Course Subjective: No acute changes overnight, patient is awake, looks comfortable, no fevers Microbiology: Urine culture growing MRSA, enterococcus species, Xochilt albicans , E. coli ESBL Physical examination: Obese, well-developed elderly man who is in no distress Head atraumatic normocephalic, sclera nonicteric, bugle mucosa dry. Neck is supple, trachea midline Chest rise symmetrical, breath sounds clear Abdomen soft, bowel tones present Extremities without cyanosis edema. Assessment: 1. Polymicrobial UTI 2. Resolving encephalopathy and leukocytosis 3. History of metastatic prostate CA 4. Diabetes 5. Hypertension Plan: We are going to start patient on vancomycin, Diflucan and Invanz. Continue present care as per primary team and consultants. Anticipate downgrade antibiotics to oral Bactrim Discussed with staff Problems: Consultation Date/Type/Reason Admit Date/Time Sep 03, 2016 at 07:04 Initial Consult Date Type of Consultation: Infectious disease Referring Provider: CHANELLE PAUL MD Exam/Review of Systems Vital Signs Vitals Vital Signs Date Time Temp Pulse Resp B/P Pulse Ox O2 Delivery O2 Flow Rate FiO2 09/06/16 07:33 97.7 82 18 129/61 95 09/03/16 09:40 Room Air Intake and Output 09/05/16 09/05/16 09/06/16 15:00 23:00 07:00 Intake Total 100 ml 910 ml 1030 ml Output Total 400 ml 150 ml Balance 100 ml 510 ml 880 ml Results Result Diagram: 09/06/16 0550 09/06/16 0550 Results 24 hrs Laboratory Tests Test 09/05/16 17:30 09/05/16 21:27 09/06/16 05:50 09/06/16 07:49 Bedside Glucose 185 72 169 White Blood Count 9.6 Red Blood Count 2.83 L Hemoglobin 8.5 L Hematocrit 25.9 L Mean Corpuscular Volume 91.5 Mean Corpuscular Hemoglobin 30.0 Mean Corpuscular Hemoglobin Concent 32.8 Red Cell Distribution Width 20.6 H Platelet Count 111 L Mean Platelet Volume 9.8 Neutrophils % 86.6 H Lymphocytes % 7.1 L Monocytes % 5.1 Eosinophils % 0.1 Basophils % 0.1 Nucleated Red Blood Cells % 0.0 Neutrophils # 8.3 H Lymphocytes # 0.7 L Monocytes # 0.5 Eosinophils # 0.0 Basophils # 0.0 Nucleated Red Blood Cells # 0.0 Sodium Level 135 Potassium Level 3.5 Chloride Level 110 Carbon Dioxide Level 20 L Anion Gap 9 Blood Urea Nitrogen 14 Creatinine 0.38 L Glucose Level 145 Calcium Level 6.8 L Test 09/06/16 11:32 Bedside Glucose 173 Medications Medications Current Medications Sodium Chloride (NS) 1,000 ml @ 70 mls/hr [id number] IV Last administered on 09/06 05:44; Admin Dose 70 MLS/HR; Start 09/02/16 at 20:36 Ondansetron HCl (Zofran Inj) 4 mg Q6H PRN IV NAUSEA AND/OR VOMITING; Start at 21:00 Acetaminophen (Tylenol Tab) 650 mg Q6H PRN PO PAIN LEVEL 1-3 OR FEVER; Start at 21:00 Morphine Sulfate (morphine) 2 mg Q4H PRN IV PAIN LEVEL 7-10; Start 09/02/16 at 21:00 Enoxaparin Sodium (Lovenox) 30 mg DAILY SC Last administered on 09/06/16 09:18 ; Admin Dose 30 MG; Start 09/03/16 at 09:00 Aspirin (Halfprin) 81 mg DAILY PO Last administered on 09/06/16 09:13; Admin Dose 81 MG; Start 09/04/16 at 09:00 Docusate Sodium (Colace) 100 mg DAILY PO Last administered on 09/06/16 09:11; Admin Dose 100 MG; Start 09/04/16 at 09:00 Insulin Glargine (Lantus) 10 unit QHS SC Last administered on 09/05/16 21:29; Admin Dose 10 UNIT; Start 09/03/16 at 21:00 Losartan Potassium (Cozaar) 100 mg DAILY PO Last administered on 09/06/16 09: 14; Admin Dose 100 MG; Start 09/04/16 at 09:00 Tamsulosin HCl (Flomax) 0.4 mg DAILY PO Last administered on 09/06/16 09:17; Admin Dose 0.4 MG; Start 09/04/16 at 09:00 Atorvastatin Calcium (Lipitor) 10 mg QHS PO Last administered on 09/05/16 21: 30; Admin Dose 10 MG; Start 09/03/16 at 21:00 Hydralazine HCl (Apresoline) 10 mg Q6H PRN IV SBP>170; Start 09/03/16 at 14:30 Nystatin (Nystatin Cr) 1 applic BID TOP Last administered on 09/06/16 09:21; Admin Dose 1 APPLIC; Start 09/03/16 at 21:00 Miscellaneous Information 1 ea NOTE XX ; Start 09/03/16 at 15:00 Glucose (Glutose) 15 gm Q15M PRN PO DECREASED GLUCOSE; Start 09/03/16 at 15:00 Glucose (Glutose) 22.5 gm Q15M PRN PO DECREASED GLUCOSE; Start 09/03/16 at 15: 00 Dextrose (D50w Syringe) 25 ml Q15M PRN IV DECREASED GLUCOSE; Start 09/03/16 at 15:00 Dextrose (D50w Syringe) 50 ml Q15M PRN IV DECREASED GLUCOSE; Start 09/03/16 at 15:00 Glucagon (Glucagen) 1 mg Q15M PRN IM DECREASED GLUCOSE; Start 09/03/16 at 15:00 Glucose (Glutose) 15 gm Q15M PRN BUCCAL DECREASED GLUCOSE; Start 09/03/16 at 15 :00 Amiodarone HCl (Cordarone) 200 mg DAILY PO Last administered on 09/06/16 09:13 ; Admin Dose 200 MG; Start 09/04/16 at 09:00 Hydralazine HCl (Apresoline) 25 mg BID PO Last administered on 09/06/16 09:14 ; Admin Dose 25 MG; Start 09/04/16 at 09:00 Metoprolol Tartrate (Lopressor) 12.5 mg BID PO Last administered on 09/06/16 09:13; Admin Dose 12.5 MG; Start 09/04/16 at 09:00 Pantoprazole (Protonix Tab) 40 mg DAILY@06 PO Last administered on 09/06/16 05 :44; Admin Dose 40 MG; Start 09/04/16 at 06:00 Sodium Chloride (Nacl) 1 gm TID PO Last administered on 09/06/16 09:17; Admin Dose 1 GM; Start 09/04/16 at 09:00 Ascorbic Acid (Vitamin C) 500 mg BID PO Last administered on 09/06/16 09:11; Admin Dose 500 MG; Start 09/04/16 at 09:00 Lactobacillus Acidophilus/ Rhamnosus (Culturelle) 1 cap DAILY PO Last administered on 09/06/16 09:11; Admin Dose 1 CAP; Start 09/04/16 at 09:00 Zinc Sulfate (Zinc Sulfate) 220 mg DAILY PO Last administered on 09/06/16 11: 34; Admin Dose 220 MG; Start 09/04/16 at 09:00; Stop 09/17/16 at 10:00 Multivitamins/ Minerals (Theragran-M) 1 tab DAILY PO Last administered on 09:11; Admin Dose 1 TAB; Start 09/04/16 at 09:00 Diagnostic Test (Pha) 1 ea 1 ea 02 XX Last administered on 09/04/16 01:20; Admin Dose 1 EA; Start 09/04/16 at 02:00 Meropenem (Merrem 500 Mg/ 100 ml (Pmx)) 100 ml @ 200 mls/hr Q12 IVPB Last administered on 09/06/16 09:11; Admin Dose 200 MLS/HR; Start 09/04/16 at 21:00 AMY SEALS NP Sep 06, 2016 13:59
[2016-09-06] MEDS ORDERED: VANCOMYCIN 1.25 GM in SOD CHLORIDE 0.9% 250 ML IVPB SCH (15:30)
[2016-09-06] MEDS ORDERED: CASPOFUNGIN 70 MG in NS 250 ML IV ONE (15:30)
[2016-09-06] MEDS ORDERED: ERTAPENEM SODIUM 1 GM in SOD CHLORIDE 0.9% 100 ML IVPB SCH (15:30)
--- NOTE | 2016-09-06 17:04 | CONS ---
Date/Time of Note Date/Time of Note DATE: 09/06/16 TIME: 17:03 Consultation Date/Type/Reason Admit Date/Time Sep 03, 2016 at 07:04 Reason for Consultation This is Dr. Bruce Watts dictating infectious consult on Morgan Abbott , date of admission 09/02/2016 date of consultation 09/05/2016, date of dictation 09/06/2016, reason for consultation is antibiotic management. Patient is an 86-year-old male who was admitted for altered levels of consciousness. Past problems include: 1 history of metastatic prostate carcinoma, status post Zometa and Lupron, followed by Dr. Sinclair in hematology oncology consultation. 2 adult onset diabetes mellitus. 3. Hypertension 4. Urinary retention 5. History of hyponatremia 6. History of arthritis. 7. Anemia 8. Paroxysmal atrial flutter. 9. 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 10. History of urinary tract infections 11. Status post appendectomy. 12. Status post ERCP with stent placement and subsequent stent removal by Dr. Pat in 2016. 13. Status post cataract surgery. On admission his white count was 11.9 H&H of 10.4 and 29.8 platelet count of 106 ,000. Currently his white count is 9.6. His BUN creatinine is 14/0.38. Urinalysis showed 2+ leukocyte esterase and greater than 182 WBCs and RBCs per high-powered field. Urine culture from 625 grew out E. coli ESBL, enterococcus species, MRSA and Xochilt albicans. Chest x-ray shows pulmonary edema and atelectasis at the lung bases left worse than right. It also shows cardiomegaly and probable diffuse osseous metastatic disease. The patient is currently on vancomycin, caspofungin, and meropenem. Past medical history as outlined Past surgical history as outlined Family history noncontributory. Social history: Patient resides in a longterm facility, no current history of smoking drinking or abuse of drugs. Allergies: None to penicillin sulfa foods Medications per chart Review of systems is as per HPI. On physical examination patient is an elderly appearing male who is in no acute distress Vital signs are stable, he is afebrile SHEENT: Within normal limits Neck: Supple without neck vein distention, without adenopathy Chest: Without murmur gallop Abdomen: Soft and nontender, without organosplenomegaly or masses. Extremities: Without cyanosis clubbing or edema Rectal/genital exams: Deferred Neurological evaluation: No focal neurological abnormalities. Patient is an 86-year-old male who presents with polymicrobial UTI as outlined. We are going to change his regimen to vancomycin, fluconazole, and ertapenem. I want to thank Dr. Gregory for asking us to see this roque gentleman. Thank you for this dial maker. Past Surgical History Past Surgical Hx: appendectomy, other Social History Smoking Status: Unknown if ever smoked Exam/Review of Systems Vital Signs Vitals Vital Signs Date Time Temp Pulse Resp B/P Pulse Ox O2 Delivery O2 Flow Rate FiO2 09/06/16 07:33 97.7 82 18 129/61 95 09/03/16 09:40 Room Air Intake and Output 09/05/16 09/05/16 09/06/16 15:00 23:00 07:00 Intake Total 100 ml 910 ml 1030 ml Output Total 400 ml 150 ml Balance 100 ml 510 ml 880 ml Results Result Diagram: 09/06/16 0550 09/06/16 0550 Results 24 hrs Laboratory Tests Test 09/05/16 17:30 09/05/16 21:27 09/06/16 05:50 09/06/16 07:49 Bedside Glucose 185 72 169 White Blood Count 9.6 Red Blood Count 2.83 L Hemoglobin 8.5 L Hematocrit 25.9 L Mean Corpuscular Volume 91.5 Mean Corpuscular Hemoglobin 30.0 Mean Corpuscular Hemoglobin Concent 32.8 Red Cell Distribution Width 20.6 H Platelet Count 111 L Mean Platelet Volume 9.8 Neutrophils % 86.6 H Lymphocytes % 7.1 L Monocytes % 5.1 Eosinophils % 0.1 Basophils % 0.1 Nucleated Red Blood Cells % 0.0 Neutrophils # 8.3 H Lymphocytes # 0.7 L Monocytes # 0.5 Eosinophils # 0.0 Basophils # 0.0 Nucleated Red Blood Cells # 0.0 Sodium Level 135 Potassium Level 3.5 Chloride Level 110 Carbon Dioxide Level 20 L Anion Gap 9 Blood Urea Nitrogen 14 Creatinine 0.38 L Glucose Level 145 Calcium Level 6.8 L Test 09/06/16 11:32 Bedside Glucose 173 Medications Medications Current Medications Sodium Chloride (NS) 1,000 ml @ 70 mls/hr [id number] IV Last administered on 09/06t 05:44; Admin Dose 70 MLS/HR; Start 09/02/16 at 20:36 Ondansetron HCl (Zofran Inj) 4 mg Q6H PRN IV NAUSEA AND/OR VOMITING; Start at 21:00 Acetaminophen (Tylenol Tab) 650 mg Q6H PRN PO PAIN LEVEL 1-3 OR FEVER; Start at 21:00 Morphine Sulfate (morphine) 2 mg Q4H PRN IV PAIN LEVEL 7-10; Start 09/02/16 at 21:00 Enoxaparin Sodium (Lovenox) 30 mg DAILY SC Last administered on 09/06/16 09:18 ; Admin Dose 30 MG; Start 09/03/16 at 09:00 Aspirin (Halfprin) 81 mg DAILY PO Last administered on 09/06/16 09:13; Admin Dose 81 MG; Start 09/04/16 at 09:00 Docusate Sodium (Colace) 100 mg DAILY PO Last administered on 09/06/16 09:11; Admin Dose 100 MG; Start 09/04/16 at 09:00 Insulin Glargine (Lantus) 10 unit QHS SC Last administered on 09/05/16 21:29; Admin Dose 10 UNIT; Start 09/03/16 at 21:00 Losartan Potassium (Cozaar) 100 mg DAILY PO Last administered on 09/06/16 09: 14; Admin Dose 100 MG; Start 09/04/16 at 09:00 Tamsulosin HCl (Flomax) 0.4 mg DAILY PO Last administered on 09/06/16 09:17; Admin Dose 0.4 MG; Start 09/04/16 at 09:00 Atorvastatin Calcium (Lipitor) 10 mg QHS PO Last administered on 09/05/16 21: 30; Admin Dose 10 MG; Start 09/03/16 at 21:00 Hydralazine HCl (Apresoline) 10 mg Q6H PRN IV SBP>170; Start 09/03/16 at 14:30 Nystatin (Nystatin Cr) 1 applic BID TOP Last administered on 09/06/16 09:21; Admin Dose 1 APPLIC; Start 09/03/16 at 21:00 Miscellaneous Information 1 ea NOTE XX ; Start 09/03/16 at 15:00 Glucose (Glutose) 15 gm Q15M PRN PO DECREASED GLUCOSE; Start 09/03/16 at 15:00 Glucose (Glutose) 22.5 gm Q15M PRN PO DECREASED GLUCOSE; Start 09/03/16 at 15: 00 Dextrose (D50w Syringe) 25 ml Q15M PRN IV DECREASED GLUCOSE; Start 09/03/16 at 15:00 Dextrose (D50w Syringe) 50 ml Q15M PRN IV DECREASED GLUCOSE; Start 09/03/16 at 15:00 Glucagon (Glucagen) 1 mg Q15M PRN IM DECREASED GLUCOSE; Start 09/03/16 at 15:00 Glucose (Glutose) 15 gm Q15M PRN BUCCAL DECREASED GLUCOSE; Start 09/03/16 at 15 :00 Amiodarone HCl (Cordarone) 200 mg DAILY PO Last administered on 09/06/16 09:13 ; Admin Dose 200 MG; Start 09/04/16 at 09:00 Hydralazine HCl (Apresoline) 25 mg BID PO Last administered on 09/06/16 09:14 ; Admin Dose 25 MG; Start 09/04/16 at 09:00 Metoprolol Tartrate (Lopressor) 12.5 mg BID PO Last administered on 09/06/16 09:13; Admin Dose 12.5 MG; Start 09/04/16 at 09:00 Pantoprazole (Protonix Tab) 40 mg DAILY@06 PO Last administered on 09/06/16 05 :44; Admin Dose 40 MG; Start 09/04/16 at 06:00 Sodium Chloride (Nacl) 1 gm TID PO Last administered on 09/06/16 13:56; Admin Dose 1 GM; Start 09/04/16 at 09:00 Ascorbic Acid (Vitamin C) 500 mg BID PO Last administered on 09/06/16 09:11; Admin Dose 500 MG; Start 09/04/16 at 09:00 Lactobacillus Acidophilus/ Rhamnosus (Culturelle) 1 cap DAILY PO Last administered on 09/06/16 09:11; Admin Dose 1 CAP; Start 09/04/16 at 09:00 Zinc Sulfate (Zinc Sulfate) 220 mg DAILY PO Last administered on 09/06/16 11: 34; Admin Dose 220 MG; Start 09/04/16 at 09:00; Stop 09/17/16 at 10:00 Multivitamins/ Minerals (Theragran-M) 1 tab DAILY PO Last administered on 09:11; Admin Dose 1 TAB; Start 09/04/16 at 09:00 Diagnostic Test (Pha) 1 ea 1 ea XX Last administered on 09/04/16 01:20; Admin Dose 1 EA; Start 09/04/16 at 02:00 Meropenem (Merrem 500 Mg/ 100 ml (Pmx)) 100 ml @ 200 mls/hr Q12 IVPB Last administered on 09/06/16 09:11; Admin Dose 200 MLS/HR; Start 09/04/16 at 21:00 Mupirocin 1 applic 1 applic BID TOP ; Start 09/06/16 at 21:00; Stop 09/13/16 at 09:01 Caspofungin 35 mg/ Sodium Chloride 250 ml @ 250 mls/hr Q24H IV ; Start at 15:30 Vancomycin HCl 1.25 gm/Sodium Chloride 250 ml @ 83.333 mls/ hr ONCE IVPB Last administered on 09/06/16 15:41; Admin Dose 83.333 MLS/HR; Start 09/06/16 at 15: 30; Stop 09/06/16 at 22:00 Vancomycin HCl/ Sodium Chloride (Vancocin/NS) 150 ml @ 75 mls/hr Q12H IVPB ; Start 09/07/16 at 03:30 BRUCE WATTS MD Sep 06, 2016 17:04
--- NOTE | 2016-09-06 17:43 | CONS ---
Date/Time of Note Date/Time of Note DATE: 09/06/16 TIME: 17:41 Assessment/Plan Assessment/Plan Additional Assessment/Plan assessment/impression - sepsis due to UTI - UTI due to enterobacter - acute encephalopathy due to UTI, but now due to Ativan - improving - h/o UTI due to enterobacter in the past - h/o CVA - h/o BPH recommendations: - continue ceftriaxone (08/31/2016-) Management d/w Pt and his and Dr. Pruitt Consultation Date/Type/Reason Admit Date/Time Sep 03, 2016 at 07:04 Initial Consult Date Type of Consultation: Infectious disease Referring Provider: CHANELLE PAUL MD Exam/Review of Systems Vital Signs Vitals Vital Signs Date Time Temp Pulse Resp B/P Pulse Ox O2 Delivery O2 Flow Rate FiO2 09/06/16 07:33 97.7 82 18 129/61 95 09/03/16 09:40 Room Air Intake and Output 09/05/16 09/05/16 09/06/16 15:00 23:00 07:00 Intake Total 100 ml 910 ml 1030 ml Output Total 400 ml 150 ml Balance 100 ml 510 ml 880 ml Exam Constitutional: alert Psych: nl mood/affect Head: normocephalic Respiratory: clear to auscultation, normal air movement Gastrointestinal: non-tender, soft Musculoskeletal: nl extremities to inspection Neurological: other Results Result Diagram: 09/06/16 0550 09/06/16 0550 Results 24 hrs Laboratory Tests Test 09/05/16 21:27 09/06/16 05:50 09/06/16 07:49 09/06/16 11:32 Bedside Glucose 72 169 173 White Blood Count 9.6 Red Blood Count 2.83 L Hemoglobin 8.5 L Hematocrit 25.9 L Mean Corpuscular Volume 91.5 Mean Corpuscular Hemoglobin 30.0 Mean Corpuscular Hemoglobin Concent 32.8 Red Cell Distribution Width 20.6 H Platelet Count 111 L Mean Platelet Volume 9.8 Neutrophils % 86.6 H Lymphocytes % 7.1 L Monocytes % 5.1 Eosinophils % 0.1 Basophils % 0.1 Nucleated Red Blood Cells % 0.0 Neutrophils # 8.3 H Lymphocytes # 0.7 L Monocytes # 0.5 Eosinophils # 0.0 Basophils # 0.0 Nucleated Red Blood Cells # 0.0 Sodium Level 135 Potassium Level 3.5 Chloride Level 110 Carbon Dioxide Level 20 L Anion Gap 9 Blood Urea Nitrogen 14 Creatinine 0.38 L Glucose Level 145 Calcium Level 6.8 L Test 09/06/16 17:26 Bedside Glucose 167 Medications Medications Current Medications Sodium Chloride (NS) 1,000 ml @ 70 mls/hr [id number] IV Last administered on 09/06 05:44; Admin Dose 70 MLS/HR; Start 09/02/16 at 20:36 Ondansetron HCl (Zofran Inj) 4 mg Q6H PRN IV NAUSEA AND/OR VOMITING; Start at 21:00 Acetaminophen (Tylenol Tab) 650 mg Q6H PRN PO PAIN LEVEL 1-3 OR FEVER; Start at 21:00 Morphine Sulfate (morphine) 2 mg Q4H PRN IV PAIN LEVEL 7-10; Start 09/02/16 at 21:00 Enoxaparin Sodium (Lovenox) 30 mg DAILY SC Last administered on 09/06/16 09:18 ; Admin Dose 30 MG; Start 09/03/16 at 09:00 Aspirin (Halfprin) 81 mg DAILY PO Last administered on 09/06/16 09:13; Admin Dose 81 MG; Start 09/04/16 at 09:00 Docusate Sodium (Colace) 100 mg DAILY PO Last administered on 09/06/16 09:11; Admin Dose 100 MG; Start 09/04/16 at 09:00 Insulin Glargine (Lantus) 10 unit QHS SC Last administered on 09/05/16 21:29; Admin Dose 10 UNIT; Start 09/03/16 at 21:00 Losartan Potassium (Cozaar) 100 mg DAILY PO Last administered on 09/06/16 09: 14; Admin Dose 100 MG; Start 09/04/16 at 09:00 Tamsulosin HCl (Flomax) 0.4 mg DAILY PO Last administered on 09/06/16 09:17; Admin Dose 0.4 MG; Start 09/04/16 at 09:00 Atorvastatin Calcium (Lipitor) 10 mg QHS PO Last administered on 09/05/16 21: 30; Admin Dose 10 MG; Start 09/03/16 at 21:00 Hydralazine HCl (Apresoline) 10 mg Q6H PRN IV SBP>170; Start 09/03/16 at 14:30 Nystatin (Nystatin Cr) 1 applic BID TOP Last administered on 09/06/16 09:21; Admin Dose 1 APPLIC; Start 09/03/16 at 21:00 Miscellaneous Information 1 ea NOTE XX ; Start 09/03/16 at 15:00 Glucose (Glutose) 15 gm Q15M PRN PO DECREASED GLUCOSE; Start 09/03/16 at 15:00 Glucose (Glutose) 22.5 gm Q15M PRN PO DECREASED GLUCOSE; Start 09/03/16 at 15: 00 Dextrose (D50w Syringe) 25 ml Q15M PRN IV DECREASED GLUCOSE; Start 09/03/16 at 15:00 Dextrose (D50w Syringe) 50 ml Q15M PRN IV DECREASED GLUCOSE; Start 09/03/16 at 15:00 Glucagon (Glucagen) 1 mg Q15M PRN IM DECREASED GLUCOSE; Start 09/03/16 at 15:00 Glucose (Glutose) 15 gm Q15M PRN BUCCAL DECREASED GLUCOSE; Start 09/03/16 at 15 :00 Amiodarone HCl (Cordarone) 200 mg DAILY PO Last administered on 09/06/16 09:13 ; Admin Dose 200 MG; Start 09/04/16 at 09:00 Hydralazine HCl (Apresoline) 25 mg BID PO Last administered on 09/06/16 09:14 ; Admin Dose 25 MG; Start 09/04/16 at 09:00 Metoprolol Tartrate (Lopressor) 12.5 mg BID PO Last administered on 09/06/16 09:13; Admin Dose 12.5 MG; Start 09/04/16 at 09:00 Pantoprazole (Protonix Tab) 40 mg DAILY@06 PO Last administered on 09/06/16 05 :44; Admin Dose 40 MG; Start 09/04/16 at 06:00 Sodium Chloride (Nacl) 1 gm TID PO Last administered on 09/06/16 13:56; Admin Dose 1 GM; Start 09/04/16 at 09:00 Ascorbic Acid (Vitamin C) 500 mg BID PO Last administered on 09/06/16 09:11; Admin Dose 500 MG; Start 09/04/16 at 09:00 Lactobacillus Acidophilus/ Rhamnosus (Culturelle) 1 cap DAILY PO Last administered on 09/06/16 09:11; Admin Dose 1 CAP; Start 09/04/16 at 09:00 Zinc Sulfate (Zinc Sulfate) 220 mg DAILY PO Last administered on 09/06/16 11: 34; Admin Dose 220 MG; Start 09/04/16 at 09:00; Stop 09/17/16 at 10:00 Multivitamins/ Minerals (Theragran-M) 1 tab DAILY PO Last administered on 09:11; Admin Dose 1 TAB; Start 09/04/16 at 09:00 Diagnostic Test (Pha) 1 ea 1 ea 02 XX Last administered on 09/04/16 01:20; Admin Dose 1 EA; Start 09/04/16 at 02:00 Meropenem (Merrem 500 Mg/ 100 ml (Pmx)) 100 ml @ 200 mls/hr Q12 IVPB Last administered on 09/06/16 09:11; Admin Dose 200 MLS/HR; Start 09/04/16 at 21:00 Mupirocin 1 applic 1 applic BID TOP ; Start 09/06/16 at 21:00; Stop 09/13/16 at 09:01 Caspofungin 35 mg/ Sodium Chloride 250 ml @ 250 mls/hr Q24H IV ; Start at 15:30 Vancomycin HCl 1.25 gm/Sodium Chloride 250 ml @ 83.333 mls/ hr ONCE IVPB Last administered on 09/06/16 15:41; Admin Dose 83.333 MLS/HR; Start 09/06/16 at 15: 30; Stop 09/06/16 at 22:00 Vancomycin HCl/ Sodium Chloride (Vancocin/NS) 150 ml @ 75 mls/hr Q12H IVPB ; Start 09/07/16 at 03:30 BIBIANA DUKE Sep 06, 2016 17:43
--- NOTE | 2016-09-06 17:51 | PN ---
Date/Time of Note Date/Time of Note DATE: 09/06/16 TIME: 17:45 Assessment/Plan VTE Prophylaxis VTE Prophylaxis Intervention: SCD's Lines/Catheters IV Catheter Type (from Nrs): Peripheral IV Assessment/Plan Assessment/Plan 1. Polymicrobial urinary tract infection, including E. coli ESBL, continue meropenem. Dr. Rodrigues is following infection disease consultation. 2. Possible sepsis secondary to urinary tract infection with leukocytosis and encephalopathy. 3. Severe hyponatremia, improving. Continue IV fluids. Dr. Howard is following in nephrology consultation. 4. Dehydration, resolved. 5. Metastatic prostate carcinoma. 6. Hypertension. Continue Cozaar. 7. Diabetes mellitus. Continue Lantus and NovoLog. Continue Lovenox for deep venous thrombosis prophylaxis and Pepcid for peptic ulcer disease prophylaxis. Further recommendations based on clinical course. Plan of care discussed with Dr. Gregory. Exam/Review of Systems Vital Signs Vitals Vital Signs Date Time Temp Pulse Resp B/P Pulse Ox O2 Delivery O2 Flow Rate FiO2 09/06/16 07:33 97.7 82 18 129/61 95 09/03/16 09:40 Room Air Intake and Output 09/05/16 09/05/16 09/06/16 15:00 23:00 07:00 Intake Total 100 ml 910 ml 1030 ml Output Total 400 ml 150 ml Balance 100 ml 510 ml 880 ml Exam Constitutional: alert, well developed Psych: nl mood/affect Head: normocephalic Respiratory: clear to auscultation, normal air movement Cardiovascular: nl pulses, regular rate and rhythm Gastrointestinal: non-tender, soft Extremities: normal pulses Neurological: nl speech Results Result Diagram: 09/06/16 0550 09/06/16 0550 Results 24 hrs Laboratory Tests Test 09/05/16 21:27 09/06/16 05:50 09/06/16 07:49 09/06/16 11:32 Bedside Glucose 72 169 173 White Blood Count 9.6 Red Blood Count 2.83 L Hemoglobin 8.5 L Hematocrit 25.9 L Mean Corpuscular Volume 91.5 Mean Corpuscular Hemoglobin 30.0 Mean Corpuscular Hemoglobin Concent 32.8 Red Cell Distribution Width 20.6 H Platelet Count 111 L Mean Platelet Volume 9.8 Neutrophils % 86.6 H Lymphocytes % 7.1 L Monocytes % 5.1 Eosinophils % 0.1 Basophils % 0.1 Nucleated Red Blood Cells % 0.0 Neutrophils # 8.3 H Lymphocytes # 0.7 L Monocytes # 0.5 Eosinophils # 0.0 Basophils # 0.0 Nucleated Red Blood Cells # 0.0 Sodium Level 135 Potassium Level 3.5 Chloride Level 110 Carbon Dioxide Level 20 L Anion Gap 9 Blood Urea Nitrogen 14 Creatinine 0.38 L Glucose Level 145 Calcium Level 6.8 L Test 09/06/16 17:26 Bedside Glucose 167 Medications Medications Current Medications Sodium Chloride (NS) 1,000 ml @ 70 mls/hr [id number] IV Last administered on 09/06 05:44; Admin Dose 70 MLS/HR; Start 09/02/16 at 20:36 Ondansetron HCl (Zofran Inj) 4 mg Q6H PRN IV NAUSEA AND/OR VOMITING; Start at 21:00 Acetaminophen (Tylenol Tab) 650 mg Q6H PRN PO PAIN LEVEL 1-3 OR FEVER; Start at 21:00 Morphine Sulfate (morphine) 2 mg Q4H PRN IV PAIN LEVEL 7-10; Start 09/02/16 at 21:00 Enoxaparin Sodium (Lovenox) 30 mg DAILY SC Last administered on 09/06/16 09:18 ; Admin Dose 30 MG; Start 09/03/16 at 09:00 Aspirin (Halfprin) 81 mg DAILY PO Last administered on 09/06/16 09:13; Admin Dose 81 MG; Start 09/04/16 at 09:00 Docusate Sodium (Colace) 100 mg DAILY PO Last administered on 09/06/16 09:11; Admin Dose 100 MG; Start 09/04/16 at 09:00 Insulin Glargine (Lantus) 10 unit QHS SC Last administered on 09/05/16 21:29; Admin Dose 10 UNIT; Start 09/03/16 at 21:00 Losartan Potassium (Cozaar) 100 mg DAILY PO Last administered on 09/06/16 09: 14; Admin Dose 100 MG; Start 09/04/16 at 09:00 Tamsulosin HCl (Flomax) 0.4 mg DAILY PO Last administered on 09/06/16 09:17; Admin Dose 0.4 MG; Start 09/04/16 at 09:00 Atorvastatin Calcium (Lipitor) 10 mg QHS PO Last administered on 09/05/16 21: 30; Admin Dose 10 MG; Start 09/03/16 at 21:00 Hydralazine HCl (Apresoline) 10 mg Q6H PRN IV SBP>170; Start 09/03/16 at 14:30 Nystatin (Nystatin Cr) 1 applic BID TOP Last administered on 09/06/16 09:21; Admin Dose 1 APPLIC; Start 09/03/16 at 21:00 Miscellaneous Information 1 ea NOTE XX ; Start 09/03/16 at 15:00 Glucose (Glutose) 15 gm Q15M PRN PO DECREASED GLUCOSE; Start 09/03/16 at 15:00 Glucose (Glutose) 22.5 gm Q15M PRN PO DECREASED GLUCOSE; Start 09/03/16 at 15: 00 Dextrose (D50w Syringe) 25 ml Q15M PRN IV DECREASED GLUCOSE; Start 09/03/16 at 15:00 Dextrose (D50w Syringe) 50 ml Q15M PRN IV DECREASED GLUCOSE; Start 09/03/16 at 15:00 Glucagon (Glucagen) 1 mg Q15M PRN IM DECREASED GLUCOSE; Start 09/03/16 at 15:00 Glucose (Glutose) 15 gm Q15M PRN BUCCAL DECREASED GLUCOSE; Start 09/03/16 at 15 :00 Amiodarone HCl (Cordarone) 200 mg DAILY PO Last administered on 09/06/16 09:13 ; Admin Dose 200 MG; Start 09/04/16 at 09:00 Hydralazine HCl (Apresoline) 25 mg BID PO Last administered on 09/06/16 09:14 ; Admin Dose 25 MG; Start 09/04/16 at 09:00 Metoprolol Tartrate (Lopressor) 12.5 mg BID PO Last administered on 09/06/16 09:13; Admin Dose 12.5 MG; Start 09/04/16 at 09:00 Pantoprazole (Protonix Tab) 40 mg DAILY@06 PO Last administered on 09/06/16 05 :44; Admin Dose 40 MG; Start 09/04/16 at 06:00 Sodium Chloride (Nacl) 1 gm TID PO Last administered on 09/06/16 13:56; Admin Dose 1 GM; Start 09/04/16 at 09:00 Ascorbic Acid (Vitamin C) 500 mg BID PO Last administered on 09/06/16 09:11; Admin Dose 500 MG; Start 09/04/16 at 09:00 Lactobacillus Acidophilus/ Rhamnosus (Culturelle) 1 cap DAILY PO Last administered on 09/06/16 09:11; Admin Dose 1 CAP; Start 09/04/16 at 09:00 Zinc Sulfate (Zinc Sulfate) 220 mg DAILY PO Last administered on 09/06/16 11: 34; Admin Dose 220 MG; Start 09/04/16 at 09:00; Stop 09/17/16 at 10:00 Multivitamins/ Minerals (Theragran-M) 1 tab DAILY PO Last administered on 09:11; Admin Dose 1 TAB; Start 09/04/16 at 09:00 Diagnostic Test (Pha) 1 ea 1 ea 02 XX Last administered on 09/04/16 01:20; Admin Dose 1 EA; Start 09/04/16 at 02:00 Meropenem (Merrem 500 Mg/ 100 ml (Pmx)) 100 ml @ 200 mls/hr Q12 IVPB Last administered on 09/06/16 09:11; Admin Dose 200 MLS/HR; Start 09/04/16 at 21:00 Mupirocin 1 applic 1 applic BID TOP ; Start 09/06/16 at 21:00; Stop 09/13/16 at 09:01 Caspofungin 35 mg/ Sodium Chloride 250 ml @ 250 mls/hr Q24H IV ; Start at 15:30 Vancomycin HCl 1.25 gm/Sodium Chloride 250 ml @ 83.333 mls/ hr ONCE IVPB Last administered on 09/06/16 15:41; Admin Dose 83.333 MLS/HR; Start 09/06/16 at 15: 30; Stop 09/06/16 at 22:00 Vancomycin HCl/ Sodium Chloride (Vancocin/NS) 150 ml @ 75 mls/hr Q12H IVPB ; Start 09/07/16 at 03:30 BIBIANA DUKE Sep 06, 2016 17:51
[2016-09-06 21:07] VITALS: BP 117/56; RESP 19
[2016-09-06] MEDS: MUPIROCIN 2% 22 GM OINT TOP SCH (21:29)
[2016-09-06] MEDS: INSULIN GLARGINE [LANtus] 3 ML PEN SC SCH (21:31)
[2016-09-06] MEDS: ATORVASTATIN 10 MG TAB PO SCH (21:34)
[2016-09-07] MEDS: ACCU-CHEK XX SCH (01:41)
[2016-09-07] MEDS: SOD CHLORIDE 0.9% 1,000 ML IV SCH (02:03)
[2016-09-07] MEDS: VANCOMYCIN 750 MG in SOD CHLORIDE 0.9% 150 ML IVPB SCH ×2 (04:33→16:19)
[2016-09-07] MEDS: PANTOPRAZOLE (EC) 40 MG TAB PO SCH (05:36)
[2016-09-07 06:19] LABS: BASOPHILS % 0.1 % (0.0-2.0); EOSINOPHILS % 0.4 % (0.0-7.0); HEMATOCRIT 26.1 % (42.0-52.0); HEMOGLOBIN 8.5 g/dl (14.0-18.0); LYMPHOCYTES # 0.7 10^3/ul (0.8-2.9); LYMPHOCYTES % 9.2 % (15.0-51.0); MEAN CORPUSCULAR HEMOGLOBIN 29.7 pg (29.0-33.0); MEAN CORPUSCULAR HGB CONC 32.6 g/dl (32.0-37.0); MEAN CORPUSCULAR VOLUME 91.3 fl (82.0-101.0); MEAN PLATELET VOLUME 10.2 fl (7.4-10.4); MONOCYTE # 0.5 10^3/ul (0.3-0.9); MONOCYTES % 5.8 % (0.0-11.0); NEUTROPHIL # 6.4 10^3/ul (1.6-7.5); NEUTROPHILS % 83.3 % (39.0-77.0); PLATELET COUNT 128 10^3/UL (140-415); RED BLOOD COUNT 2.86 10^6/ul (4.70-6.10); RED CELL DISTRIBUTION WIDTH 20.6 % (11.5-14.5); WHITE BLOOD COUNT 7.7 10^3/ul (4.8-10.8)
[2016-09-07 06:42] LABS: CALCIUM 7.1 mg/dl (8.4-10.2); CREATININE 0.31 mg/dl (0.61-1.24); POTASSIUM 3.5 mmol/L (3.5-5.1)
[2016-09-07 07:10] VITALS: BP 122/58; RESP 20
[2016-09-07 07:20] LABS: ADD SCAN DIFF NO
[2016-09-07] MEDS: INSULIN ASPART [NOVOLOG] 3 ML PEN SC SCH ×7 (07:53→21:00)
[2016-09-07] MEDS: ENOXAPARIN 30 MG/0.3 ML SYG SC SCH (09:24)
[2016-09-07] MEDS: MEROPENEM 500 MG/100 ML (PMX) 100 ML IVPB SCH (09:25)
[2016-09-07] MEDS: MUPIROCIN 2% 22 GM OINT TOP SCH ×2 (09:25→21:14)
[2016-09-07] MEDS: MULTIVITAMINS/MINERALS TAB PO SCH (09:26)
[2016-09-07] MEDS: LACTOBACILLUS RHAMNOSUS CAP PO SCH (09:26)
[2016-09-07] MEDS: TAMSULOSIN (SR) 0.4 MG CAP PO SCH (09:26)
[2016-09-07] MEDS: ZINC SULFATE 220 MG CAP PO SCH (09:26)
[2016-09-07] MEDS: DOCUSATE SODIUM 100 MG CAP PO SCH (09:26)
[2016-09-07] MEDS: AMIODARONE 200 MG TAB PO SCH (09:27)
[2016-09-07] MEDS: SODIUM CHLORIDE 1 GM TAB PO SCH ×3 (09:27→21:01)
[2016-09-07] MEDS: METOPROLOL 25 MG TAB PO SCH ×2 (09:27→21:05)
[2016-09-07] MEDS: ASPIRIN (EC) 81 MG TAB PO SCH (09:27)
[2016-09-07] MEDS: ASCORBIC ACID 500 MG TAB PO SCH ×2 (09:27→21:02)
[2016-09-07] MEDS: LOSARTAN 50 MG TAB PO SCH (09:28)
[2016-09-07] MEDS: BALSAM PERU/CASTOR OIL 60 GM TUBE TOP SCH (09:29)
[2016-09-07] MEDS: NYSTATIN 15 GM CR TOP SCH ×2 (09:29→21:15)
--- NOTE | 2016-09-07 10:30 | CONS ---
Date/Time of Note Date/Time of Note DATE: 09/07/16 TIME: 10:26 Assessment/Plan Assessment/Plan Additional Assessment/Plan 1. Severe hyponatremia with sodium 116 on admission, likely secondary to a combination of syndrome of inappropriate antidiuretic hormone and hypovolemic hyponatremia. 2. Acute metabolic encephalopathy from severe hyponatremia and urinary tract infection. 3. Urinary tract infection. 4. 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 Required tolvaptan on last admission. 5. History of metastatic prostate cancer. 6. History of hypertension. 7. History of hyperlipidemia. 8. History of bilateral knee arthritis. 9. Acute hyperkalemia secondary to possible prerenal azotemia, resolved. PLAN: S/p 3 % saline, currenlty on IVF NS 70 cc/hr- IV a bx meropenem Cr and electrolytes stable will kwameo wup Consultation Date/Type/Reason Admit Date/Time Sep 03, 2016 at 07:04 Type of Consultation: NEPHROLOGY Referring Provider: CHANELLE PAUL MD 24 HR Interval Summary Free Text/Dictation pt afebrile, BP stable Exam/Review of Systems Vital Signs Vitals Vital Signs Date Time Temp Pulse Resp B/P Pulse Ox O2 Delivery O2 Flow Rate FiO2 09/07/16 07:10 98.2 75 20 122/58 94 09/03/16 09:40 Room Air Intake and Output 09/06/16 09/06/16 09/07/16 15:00 23:00 07:00 Intake Total 100 ml 2300 ml 1925 ml Balance 100 ml 2300 ml 1925 ml Exam GENERAL: Awake, alert, not oriented to place, person, and time. HEENT: Pupils equal and round, reactive to light and accommodation. Extraocular muscles are intact. NECK: Supple. No JVD, no lymphadenopathy. LUNGS: Clear to auscultation. No crackles or wheezes. HEART: S1, S2 with regular rhythm. No murmur. ABDOMEN: Soft, nontender, nondistended. Bowel sounds are present. EXTREMITIES: No clubbing, cyanosis, edema. NEUROLOGICAL: Uncooperative for exam. Results Result Diagram: 09/07/16 0525 09/07/16 0430 Results 24 hrs Laboratory Tests Test 09/06/16 11:32 09/06/16 17:26 09/06/16 21:27 09/07/16 04:30 Bedside Glucose 173 167 101 Sodium Level 137 Potassium Level 3.5 Chloride Level 112 H Carbon Dioxide Level 20 L Anion Gap 9 Blood Urea Nitrogen 15 Creatinine 0.31 L Glucose Level 53 #L Calcium Level 7.1 L Test 09/07/16 05:25 09/07/16 07:08 09/07/16 07:51 White Blood Count 7.7 Red Blood Count 2.86 L Hemoglobin 8.5 L Hematocrit 26.1 L Mean Corpuscular Volume 91.3 Mean Corpuscular Hemoglobin 29.7 Mean Corpuscular Hemoglobin Concent 32.6 Red Cell Distribution Width 20.6 H Platelet Count 128 L Mean Platelet Volume 10.2 Neutrophils % 83.3 H Lymphocytes % 9.2 L Monocytes % 5.8 Eosinophils % 0.4 Basophils % 0.1 Nucleated Red Blood Cells % 0.0 Neutrophils # 6.4 Lymphocytes # 0.7 L Monocytes # 0.5 Eosinophils # 0.0 Basophils # 0.0 Nucleated Red Blood Cells # 0.0 Bedside Glucose 98 175 Medications Medications Current Medications Sodium Chloride (NS) 1,000 ml @ 70 mls/hr [id number] IV Last administered on 09/07 02:03; Admin Dose 70 MLS/HR; Start 09/02/16 at 20:36 Ondansetron HCl (Zofran Inj) 4 mg Q6H PRN IV NAUSEA AND/OR VOMITING; Start at 21:00 Acetaminophen (Tylenol Tab) 650 mg Q6H PRN PO PAIN LEVEL 1-3 OR FEVER; Start at 21:00 Morphine Sulfate (morphine) 2 mg Q4H PRN IV PAIN LEVEL 7-10; Start 09/02/16 at 21:00 Enoxaparin Sodium (Lovenox) 30 mg DAILY SC Last administered on 09/07/16 09:24 ; Admin Dose 30 MG; Start 09/03/16 at 09:00 Aspirin (Halfprin) 81 mg DAILY PO Last administered on 09/07/16 09:27; Admin Dose 81 MG; Start 09/04/16 at 09:00 Docusate Sodium (Colace) 100 mg DAILY PO Last administered on 09/07/16 09:26; Admin Dose 100 MG; Start 09/04/16 at 09:00 Insulin Glargine (Lantus) 10 unit QHS SC Last administered on 09/06/16 21:31; Admin Dose 10 UNIT; Start 09/03/16 at 21:00 Losartan Potassium (Cozaar) 100 mg DAILY PO Last administered on 09/07/16 09: 28; Admin Dose 100 MG; Start 09/04/16 at 09:00 Tamsulosin HCl (Flomax) 0.4 mg DAILY PO Last administered on 09/07/16 09:26; Admin Dose 0.4 MG; Start 09/04/16 at 09:00 Atorvastatin Calcium (Lipitor) 10 mg QHS PO Last administered on 09/06/16 21: 34; Admin Dose 10 MG; Start 09/03/16 at 21:00 Hydralazine HCl (Apresoline) 10 mg Q6H PRN IV SBP>170; Start 09/03/16 at 14:30 Nystatin (Nystatin Cr) 1 applic BID TOP Last administered on 09/07/16 09:29; Admin Dose 1 APPLIC; Start 09/03/16 at 21:00 Miscellaneous Information 1 ea NOTE XX ; Start 09/03/16 at 15:00 Glucose (Glutose) 15 gm Q15M PRN PO DECREASED GLUCOSE; Start 09/03/16 at 15:00 Glucose (Glutose) 22.5 gm Q15M PRN PO DECREASED GLUCOSE; Start 09/03/16 at 15: 00 Dextrose (D50w Syringe) 25 ml Q15M PRN IV DECREASED GLUCOSE; Start 09/03/16 at 15:00 Dextrose (D50w Syringe) 50 ml Q15M PRN IV DECREASED GLUCOSE; Start 09/03/16 at 15:00 Glucagon (Glucagen) 1 mg Q15M PRN IM DECREASED GLUCOSE; Start 09/03/16 at 15:00 Glucose (Glutose) 15 gm Q15M PRN BUCCAL DECREASED GLUCOSE; Start 09/03/16 at 15 :00 Amiodarone HCl (Cordarone) 200 mg DAILY PO Last administered on 09/07/16 09:27 ; Admin Dose 200 MG; Start 09/04/16 at 09:00 Hydralazine HCl (Apresoline) 25 mg BID PO Last administered on 09/07/16 09:28 ; Admin Dose 25 MG; Start 09/04/16 at 09:00 Metoprolol Tartrate (Lopressor) 12.5 mg BID PO Last administered on 09/07/16 09:27; Admin Dose 12.5 MG; Start 09/04/16 at 09:00 Pantoprazole (Protonix Tab) 40 mg DAILY@06 PO Last administered on 09/07/16 05 :36; Admin Dose 40 MG; Start 09/04/16 at 06:00 Sodium Chloride (Nacl) 1 gm TID PO Last administered on 09/07/16 09:27; Admin Dose 1 GM; Start 09/04/16 at 09:00 Ascorbic Acid (Vitamin C) 500 mg BID PO Last administered on 09/07/16 09:27; Admin Dose 500 MG; Start 09/04/16 at 09:00 Lactobacillus Acidophilus/ Rhamnosus (Culturelle) 1 cap DAILY PO Last administered on 09/07/16 09:26; Admin Dose 1 CAP; Start 09/04/16 at 09:00 Zinc Sulfate (Zinc Sulfate) 220 mg DAILY PO Last administered on 09/07/16 09: 26; Admin Dose 220 MG; Start 09/04/16 at 09:00; Stop 09/17/16 at 10:00 Multivitamins/ Minerals (Theragran-M) 1 tab DAILY PO Last administered on 09:26; Admin Dose 1 TAB; Start 09/04/16 at 09:00 Diagnostic Test (Pha) 1 ea 1 ea 02 XX Last administered on 09/04/16 01:20; Admin Dose 1 EA; Start 09/04/16 at 02:00 Meropenem (Merrem 500 Mg/ 100 ml (Pmx)) 100 ml @ 200 mls/hr Q12 IVPB Last administered on 09/07/16 09:25; Admin Dose 200 MLS/HR; Start 09/04/16 at 21:00 Mupirocin 1 applic 1 applic BID TOP Last administered on 09/07/16 09:25; Admin Dose 1 APPLIC; Start 09/06/16 at 21:00; Stop 09/13/16 at 09:01 Caspofungin 35 mg/ Sodium Chloride 250 ml @ 250 mls/hr Q24H IV ; Start at 15:30 Vancomycin HCl/ Sodium Chloride (Vancocin/NS) 150 ml @ 75 mls/hr Q12H IVPB Last administered on 09/07/16 04:33; Admin Dose 75 MLS/HR; Start 09/07/16 at 03 :30 KARLENE MUÑOZ MD Sep 07, 2016 10:30
[2016-09-07] MEDS: CASPOFUNGIN 35 MG in SOD CHLORIDE 0.9% 250 ML IV SCH (15:09)
--- NOTE | 2016-09-07 16:19 | CONS ---
Date/Time of Note Date/Time of Note DATE: 09/07/16 TIME: 16:18 Assessment/Plan Assessment/Plan Chief Complaint/Hosp Course Subjective: No acute changes overnight, patient is awake, looks comfortable, no fevers Microbiology: Urine culture growing MRSA, enterococcus species, Xochilt albicans , E. coli ESBL Antibiotics: Vancomycin Diflucan Invanz Physical examination: Obese, well-developed elderly man who is in no distress Head atraumatic normocephalic, sclera nonicteric, bugle mucosa dry. Neck is supple, trachea midline Chest rise symmetrical, breath sounds clear Abdomen soft, bowel tones present Extremities without cyanosis edema. Assessment: 1. Polymicrobial UTI 2. Resolving encephalopathy and leukocytosis 3. History of metastatic prostate CA 4. Diabetes 5. Hypertension Plan: Remains stable, continue antibiotics, anticipate discharge on oral Bactrim Discussed with staff Problems: Consultation Date/Type/Reason Admit Date/Time Sep 03, 2016 at 07:04 Type of Consultation: Infectious disease Referring Provider: CHANELLE PAUL MD Exam/Review of Systems Vital Signs Vitals Vital Signs Date Time Temp Pulse Resp B/P Pulse Ox O2 Delivery O2 Flow Rate FiO2 09/07/16 07:10 98.2 75 20 122/58 94 09/03/16 09:40 Room Air Intake and Output 09/06/16 09/06/16 09/07/16 15:00 23:00 07:00 Intake Total 100 ml 2300 ml 1925 ml Balance 100 ml 2300 ml 1925 ml Results Result Diagram: 09/07/16 0525 09/07/16 0430 Results 24 hrs Laboratory Tests Test 09/06/16 17:26 09/06/16 21:27 09/07/16 04:30 09/07/16 05:25 Bedside Glucose 167 101 Sodium Level 137 Potassium Level 3.5 Chloride Level 112 H Carbon Dioxide Level 20 L Anion Gap 9 Blood Urea Nitrogen 15 Creatinine 0.31 L Glucose Level 53 #L Calcium Level 7.1 L White Blood Count 7.7 Red Blood Count 2.86 L Hemoglobin 8.5 L Hematocrit 26.1 L Mean Corpuscular Volume 91.3 Mean Corpuscular Hemoglobin 29.7 Mean Corpuscular Hemoglobin Concent 32.6 Red Cell Distribution Width 20.6 H Platelet Count 128 L Mean Platelet Volume 10.2 Neutrophils % 83.3 H Lymphocytes % 9.2 L Monocytes % 5.8 Eosinophils % 0.4 Basophils % 0.1 Nucleated Red Blood Cells % 0.0 Neutrophils # 6.4 Lymphocytes # 0.7 L Monocytes # 0.5 Eosinophils # 0.0 Basophils # 0.0 Nucleated Red Blood Cells # 0.0 Test 09/07/16 07:08 09/07/16 07:51 09/07/16 12:02 Bedside Glucose 98 175 261 H Medications Medications Current Medications Sodium Chloride (NS) 1,000 ml @ 70 mls/hr [id number] IV Last administered on 09/07 02:03; Admin Dose 70 MLS/HR; Start 09/02/16 at 20:36 Ondansetron HCl (Zofran Inj) 4 mg Q6H PRN IV NAUSEA AND/OR VOMITING; Start at 21:00 Acetaminophen (Tylenol Tab) 650 mg Q6H PRN PO PAIN LEVEL 1-3 OR FEVER; Start at 21:00 Morphine Sulfate (morphine) 2 mg Q4H PRN IV PAIN LEVEL 7-10; Start 09/02/16 at 21:00 Enoxaparin Sodium (Lovenox) 30 mg DAILY SC Last administered on 09/07/16 09:24 ; Admin Dose 30 MG; Start 09/03/16 at 09:00 Aspirin (Halfprin) 81 mg DAILY PO Last administered on 09/07/16 09:27; Admin Dose 81 MG; Start 09/04/16 at 09:00 Docusate Sodium (Colace) 100 mg DAILY PO Last administered on 09/07/16 09:26; Admin Dose 100 MG; Start 09/04/16 at 09:00 Losartan Potassium (Cozaar) 100 mg DAILY PO Last administered on 09/07/16 09: 28; Admin Dose 100 MG; Start 09/04/16 at 09:00 Tamsulosin HCl (Flomax) 0.4 mg DAILY PO Last administered on 09/07/16 09:26; Admin Dose 0.4 MG; Start 09/04/16 at 09:00 Atorvastatin Calcium (Lipitor) 10 mg QHS PO Last administered on 09/06/16 21: 34; Admin Dose 10 MG; Start 09/03/16 at 21:00 Hydralazine HCl (Apresoline) 10 mg Q6H PRN IV SBP>170; Start 09/03/16 at 14:30 Nystatin (Nystatin Cr) 1 applic BID TOP Last administered on 09/07/16 09:29; Admin Dose 1 APPLIC; Start 09/03/16 at 21:00 Miscellaneous Information 1 ea NOTE XX ; Start 09/03/16 at 15:00 Glucose (Glutose) 15 gm Q15M PRN PO DECREASED GLUCOSE; Start 09/03/16 at 15:00 Glucose (Glutose) 22.5 gm Q15M PRN PO DECREASED GLUCOSE; Start 09/03/16 at 15: 00 Dextrose (D50w Syringe) 25 ml Q15M PRN IV DECREASED GLUCOSE; Start 09/03/16 at 15:00 Dextrose (D50w Syringe) 50 ml Q15M PRN IV DECREASED GLUCOSE; Start 09/03/16 at 15:00 Glucagon (Glucagen) 1 mg Q15M PRN IM DECREASED GLUCOSE; Start 09/03/16 at 15:00 Glucose (Glutose) 15 gm Q15M PRN BUCCAL DECREASED GLUCOSE; Start 09/03/16 at 15 :00 Amiodarone HCl (Cordarone) 200 mg DAILY PO Last administered on 09/07/16 09:27 ; Admin Dose 200 MG; Start 09/04/16 at 09:00 Hydralazine HCl (Apresoline) 25 mg BID PO Last administered on 09/07/16 09:28 ; Admin Dose 25 MG; Start 09/04/16 at 09:00 Metoprolol Tartrate (Lopressor) 12.5 mg BID PO Last administered on 09/07/16 09:27; Admin Dose 12.5 MG; Start 09/04/16 at 09:00 Pantoprazole (Protonix Tab) 40 mg DAILY@06 PO Last administered on 09/07/16 05 :36; Admin Dose 40 MG; Start 09/04/16 at 06:00 Sodium Chloride (Nacl) 1 gm TID PO Last administered on 09/07/16 13:21; Admin Dose 1 GM; Start 09/04/16 at 09:00 Ascorbic Acid (Vitamin C) 500 mg BID PO Last administered on 09/07/16 09:27; Admin Dose 500 MG; Start 09/04/16 at 09:00 Lactobacillus Acidophilus/ Rhamnosus (Culturelle) 1 cap DAILY PO Last administered on 09/07/16 09:26; Admin Dose 1 CAP; Start 09/04/16 at 09:00 Zinc Sulfate (Zinc Sulfate) 220 mg DAILY PO Last administered on 09/07/16 09: 26; Admin Dose 220 MG; Start 09/04/16 at 09:00; Stop 09/17/16 at 10:00 Multivitamins/ Minerals (Theragran-M) 1 tab DAILY PO Last administered on 09:26; Admin Dose 1 TAB; Start 09/04/16 at 09:00 Diagnostic Test (Pha) 1 ea 1 ea 02 XX Last administered on 09/04/16 01:20; Admin Dose 1 EA; Start 09/04/16 at 02:00 Meropenem (Merrem 500 Mg/ 100 ml (Pmx)) 100 ml @ 200 mls/hr Q12 IVPB Last administered on 09/07/16 09:25; Admin Dose 200 MLS/HR; Start 09/04/16 at 21:00 Mupirocin 1 applic 1 applic BID TOP Last administered on 09/07/16 09:25; Admin Dose 1 APPLIC; Start 09/06/16 at 21:00; Stop 09/13/16 at 09:01 Caspofungin 35 mg/ Sodium Chloride 250 ml @ 250 mls/hr Q24H IV Last administered on 09/07/16 15:09; Admin Dose 250 MLS/HR; Start 09/07/16 at 15:30 Vancomycin HCl/ Sodium Chloride (Vancocin/NS) 150 ml @ 75 mls/hr Q12H IVPB Last administered on 09/07/16 04:33; Admin Dose 75 MLS/HR; Start 09/07/16 at 03 :30 Miscellaneous Information (*Rx Drug Level Order Reminder*) 1 ONCE ONCE XX ; Start 09/08/16 at 02:30; Stop 09/08/16 at 02:31 Insulin Glargine (Lantus) 8 unit QHS SC ; Start 09/07/16 at 21:00 AMY SEALS NP Sep 07, 2016 16:19
--- NOTE | 2016-09-07 17:00 | PN ---
Date/Time of Note Date/Time of Note DATE: 09/07/16 TIME: 16:57 Assessment/Plan VTE Prophylaxis VTE Prophylaxis Intervention: SCD's Lines/Catheters IV C[facility]ter Type ([facility] Peripheral IV Urinary Cath still in place: No Assessment/Plan Chief Complaint/Hosp Course No acute events overnight, patient remains hemodynamically stable. ASSESSMENT AND PLAN: - Polymicrobial urinary tract infection, including E. coli ESBL, Dr. Rodrigues is following infection disease consultation. Continue antibiotics per ID. - Possible sepsis secondary to urinary tract infection with leukocytosis and encephalopathy, resolving. - Severe hyponatremia,resolved. Dr. Howard is following in nephrology consultation. - Metastatic prostate carcinoma. - Hypertension. Continue Cozaar. - Diabetes mellitus. Continue Lantus and NovoLog. Continue Lovenox for deep venous thrombosis prophylaxis and Pepcid for peptic ulcer disease prophylaxis. Further recommendations based on clinical course. Plan of care discussed with Dr. Gregory. Problems: Exam/Review of Systems Vital Signs Vitals Vital Signs Date Time Temp Pulse Resp B/P Pulse Ox O2 Delivery O2 Flow Rate FiO2 09/07/16 07:10 98.2 75 20 122/58 94 09/03/16 09:40 Room Air Intake and Output 09/06/16 09/06/16 09/07/16 15:00 23:00 07:00 Intake Total 100 ml 2300 ml 1925 ml Balance 100 ml 2300 ml 1925 ml Exam Constitutional: alert Head: atraumatic, normocephalic Neck: supple Respiratory: normal air movement Cardiovascular: nl pulses Gastrointestinal: non-tender, soft Genitourinary - Male: other Musculoskeletal: muscle weakness Extremities: normal pulses Results Result Diagram: 09/07/16 0525 09/07/16 0430 Results 24 hrs Laboratory Tests Test 09/06/16 17:26 09/06/16 21:27 09/07/16 04:30 09/07/16 05:25 Bedside Glucose 167 101 Sodium Level 137 Potassium Level 3.5 Chloride Level 112 H Carbon Dioxide Level 20 L Anion Gap 9 Blood Urea Nitrogen 15 Creatinine 0.31 L Glucose Level 53 #L Calcium Level 7.1 L White Blood Count 7.7 Red Blood Count 2.86 L Hemoglobin 8.5 L Hematocrit 26.1 L Mean Corpuscular Volume 91.3 Mean Corpuscular Hemoglobin 29.7 Mean Corpuscular Hemoglobin Concent 32.6 Red Cell Distribution Width 20.6 H Platelet Count 128 L Mean Platelet Volume 10.2 Neutrophils % 83.3 H Lymphocytes % 9.2 L Monocytes % 5.8 Eosinophils % 0.4 Basophils % 0.1 Nucleated Red Blood Cells % 0.0 Neutrophils # 6.4 Lymphocytes # 0.7 L Monocytes # 0.5 Eosinophils # 0.0 Basophils # 0.0 Nucleated Red Blood Cells # 0.0 Test 09/07/16 07:08 09/07/16 07:51 09/07/16 12:02 Bedside Glucose 98 175 261 H Medications Medications Current Medications Sodium Chloride (NS) 1,000 ml @ 70 mls/hr [id number] IV Last administered on 09/07 02:03; Admin Dose 70 MLS/HR; Start 09/02/16 at 20:36 Ondansetron HCl (Zofran Inj) 4 mg Q6H PRN IV NAUSEA AND/OR VOMITING; Start at 21:00 Acetaminophen (Tylenol Tab) 650 mg Q6H PRN PO PAIN LEVEL 1-3 OR FEVER; Start at 21:00 Morphine Sulfate (morphine) 2 mg Q4H PRN IV PAIN LEVEL 7-10; Start 09/02/16 at 21:00 Enoxaparin Sodium (Lovenox) 30 mg DAILY SC Last administered on 09/07/16 09:24 ; Admin Dose 30 MG; Start 09/03/16 at 09:00 Aspirin (Halfprin) 81 mg DAILY PO Last administered on 09/07/16 09:27; Admin Dose 81 MG; Start 09/04/16 at 09:00 Docusate Sodium (Colace) 100 mg DAILY PO Last administered on 09/07/16 09:26; Admin Dose 100 MG; Start 09/04/16 at 09:00 Losartan Potassium (Cozaar) 100 mg DAILY PO Last administered on 09/07/16 09: 28; Admin Dose 100 MG; Start 09/04/16 at 09:00 Tamsulosin HCl (Flomax) 0.4 mg DAILY PO Last administered on 09/07/16 09:26; Admin Dose 0.4 MG; Start 09/04/16 at 09:00 Atorvastatin Calcium (Lipitor) 10 mg QHS PO Last administered on 09/06/16 21: 34; Admin Dose 10 MG; Start 09/03/16 at 21:00 Hydralazine HCl (Apresoline) 10 mg Q6H PRN IV SBP>170; Start 09/03/16 at 14:30 Nystatin (Nystatin Cr) 1 applic BID TOP Last administered on 09/07/16 09:29; Admin Dose 1 APPLIC; Start 09/03/16 at 21:00 Miscellaneous Information 1 ea NOTE XX ; Start 09/03/16 at 15:00 Glucose (Glutose) 15 gm Q15M PRN PO DECREASED GLUCOSE; Start 09/03/16 at 15:00 Glucose (Glutose) 22.5 gm Q15M PRN PO DECREASED GLUCOSE; Start 09/03/16 at 15: 00 Dextrose (D50w Syringe) 25 ml Q15M PRN IV DECREASED GLUCOSE; Start 09/03/16 at 15:00 Dextrose (D50w Syringe) 50 ml Q15M PRN IV DECREASED GLUCOSE; Start 09/03/16 at 15:00 Glucagon (Glucagen) 1 mg Q15M PRN IM DECREASED GLUCOSE; Start 09/03/16 at 15:00 Glucose (Glutose) 15 gm Q15M PRN BUCCAL DECREASED GLUCOSE; Start 09/03/16 at 15 :00 Amiodarone HCl (Cordarone) 200 mg DAILY PO Last administered on 09/07/16 09:27 ; Admin Dose 200 MG; Start 09/04/16 at 09:00 Hydralazine HCl (Apresoline) 25 mg BID PO Last administered on 09/07/16 09:28 ; Admin Dose 25 MG; Start 09/04/16 at 09:00 Metoprolol Tartrate (Lopressor) 12.5 mg BID PO Last administered on 09/07/16 09:27; Admin Dose 12.5 MG; Start 09/04/16 at 09:00 Pantoprazole (Protonix Tab) 40 mg DAILY@06 PO Last administered on 09/07/16 05 :36; Admin Dose 40 MG; Start 09/04/16 at 06:00 Sodium Chloride (Nacl) 1 gm TID PO Last administered on 09/07/16 13:21; Admin Dose 1 GM; Start 09/04/16 at 09:00 Ascorbic Acid (Vitamin C) 500 mg BID PO Last administered on 09/07/16 09:27; Admin Dose 500 MG; Start 09/04/16 at 09:00 Lactobacillus Acidophilus/ Rhamnosus (Culturelle) 1 cap DAILY PO Last administered on 09/07/16 09:26; Admin Dose 1 CAP; Start 09/04/16 at 09:00 Zinc Sulfate (Zinc Sulfate) 220 mg DAILY PO Last administered on 09/07/16 09: 26; Admin Dose 220 MG; Start 09/04/16 at 09:00; Stop 09/17/16 at 10:00 Multivitamins/ Minerals (Theragran-M) 1 tab DAILY PO Last administered on 09:26; Admin Dose 1 TAB; Start 09/04/16 at 09:00 Diagnostic Test (Pha) 1 ea 1 ea 02 XX Last administered on 09/04/16 01:20; Admin Dose 1 EA; Start 09/04/16 at 02:00 Meropenem (Merrem 500 Mg/ 100 ml (Pmx)) 100 ml @ 200 mls/hr Q12 IVPB Last administered on 09/07/16 09:25; Admin Dose 200 MLS/HR; Start 09/04/16 at 21:00 Mupirocin 1 applic 1 applic BID TOP Last administered on 09/07/16 09:25; Admin Dose 1 APPLIC; Start 09/06/16 at 21:00; Stop 09/13/16 at 09:01 Caspofungin 35 mg/ Sodium Chloride 250 ml @ 250 mls/hr Q24H IV Last administered on 09/07/16 15:09; Admin Dose 250 MLS/HR; Start 09/07/16 at 15:30 Vancomycin HCl/ Sodium Chloride (Vancocin/NS) 150 ml @ 75 mls/hr Q12H IVPB Last administered on 09/07/16 16:19; Admin Dose 75 MLS/HR; Start 09/07/16 at 03 :30 Miscellaneous Information (*Rx Drug Level Order Reminder*) 1 ONCE ONCE XX ; Start 09/08/16 at 02:30; Stop 09/08/16 at 02:31 Insulin Glargine (Lantus) 8 unit QHS SC ; Start 09/07/16 at 21:00 ROBERT CORRALES Sep 07, 2016 16:59
[2016-09-07] MEDS: ERTAPENEM SODIUM 1 GM in SOD CHLORIDE 0.9% 100 ML IVPB SCH (20:53)
[2016-09-07] MEDS: ATORVASTATIN 10 MG TAB PO SCH (21:02)
[2016-09-07] MEDS: INSULIN GLARGINE [LANtus] 3 ML PEN SC SCH (21:13)
[2016-09-07 21:23] VITALS: BP 114/53; RESP 16
[2016-09-08] MEDS: SOD CHLORIDE 0.9% 1,000 ML IV SCH ×4 (01:30→21:30)
[2016-09-08] MEDS ORDERED: ACCU-CHEK XX SCH (02:00)
[2016-09-08] MEDS: ACCU-CHEK XX SCH (02:00)
[2016-09-08 02:27] LABS: EOSINOPHILS # 0.1 10^3/ul (0.0-0.5); EOSINOPHILS % 1.3 % (0.0-7.0); HEMATOCRIT 23.8 % (42.0-52.0); LYMPHOCYTES # 0.7 10^3/ul (0.8-2.9); LYMPHOCYTES % 11.3 % (15.0-51.0); MEAN CORPUSCULAR HEMOGLOBIN 30.7 pg (29.0-33.0); MEAN CORPUSCULAR HGB CONC 33.6 g/dl (32.0-37.0); MEAN CORPUSCULAR VOLUME 91.2 fl (82.0-101.0); MEAN PLATELET VOLUME 9.2 fl (7.4-10.4); MONOCYTE # 0.3 10^3/ul (0.3-0.9); MONOCYTES % 5.6 % (0.0-11.0); NEUTROPHIL # 4.8 10^3/ul (1.6-7.5); NEUTROPHILS % 80.5 % (39.0-77.0); NUCLEATED RED BLOOD CELLS% 0.3 /100WBC (0.0-0.0); PLATELET COUNT 116 10^3/UL (140-415); RED BLOOD COUNT 2.61 10^6/ul (4.70-6.10); RED CELL DISTRIBUTION WIDTH 20.3 % (11.5-14.5); WHITE BLOOD COUNT 5.9 10^3/ul (4.8-10.8)
[2016-09-08 02:46] LABS: ADD SCAN DIFF NO; CALCIUM 6.6 mg/dl (8.4-10.2); CREATININE 0.44 mg/dl (0.61-1.24); POTASSIUM 3.4 mmol/L (3.5-5.1)
[2016-09-08] MEDS: VANCOMYCIN 1.25 GM in SOD CHLORIDE 0.9% 250 ML IVPB SCH ×2 (04:00→16:14)
[2016-09-08] MEDS: PANTOPRAZOLE (EC) 40 MG TAB PO SCH (05:25)
[2016-09-08 07:10] VITALS: BP 118/56; RESP 18
[2016-09-08] MEDS: INSULIN ASPART [NOVOLOG] 3 ML PEN SC SCH ×8 (08:03→20:39)
[2016-09-08] MEDS: ZINC SULFATE 220 MG CAP PO SCH (10:03)
[2016-09-08] MEDS: LOSARTAN 50 MG TAB PO SCH (10:03)
[2016-09-08] MEDS: TAMSULOSIN (SR) 0.4 MG CAP PO SCH (10:03)
[2016-09-08] MEDS: LACTOBACILLUS RHAMNOSUS CAP PO SCH (10:03)
[2016-09-08] MEDS: ASPIRIN (EC) 81 MG TAB PO SCH (10:03)
[2016-09-08] MEDS: DOCUSATE SODIUM 100 MG CAP PO SCH (10:03)
[2016-09-08] MEDS: ASCORBIC ACID 500 MG TAB PO SCH ×2 (10:03→20:37)
[2016-09-08] MEDS: METOPROLOL 25 MG TAB PO SCH ×2 (10:04→20:38)
[2016-09-08] MEDS: AMIODARONE 200 MG TAB PO SCH (10:04)
[2016-09-08] MEDS: SODIUM CHLORIDE 1 GM TAB PO SCH ×3 (10:04→20:38)
[2016-09-08] MEDS: MULTIVITAMINS/MINERALS TAB PO SCH (10:05)
[2016-09-08] MEDS: ENOXAPARIN 30 MG/0.3 ML SYG SC SCH (10:10)
[2016-09-08] MEDS: MUPIROCIN 2% 22 GM OINT TOP SCH ×2 (10:11→20:39)
[2016-09-08] MEDS: BALSAM PERU/CASTOR OIL 60 GM TUBE TOP SCH (10:11)
[2016-09-08] MEDS: NYSTATIN 15 GM CR TOP SCH ×2 (10:11→20:39)
--- NOTE | 2016-09-08 14:36 | CONS ---
Date/Time of Note Date/Time of Note DATE: 09/08/16 TIME: 14:33 Assessment/Plan Assessment/Plan Chief Complaint/Hosp Course ID PROGRESS NOTE Antibiotics: Vancomycin Diflucan Invanz * Subjective: No acute changes overnight, patient is awake, looks comfortable, no fevers * Microbiology: Urine culture growing MRSA, enterococcus species, Xochilt albicans, E. coli ESBL * LABS 09/08/1621909/08/16219 Physical examination: Obese, well-developed elderly man who is in no distress Head atraumatic normocephalic, sclera nonicteric, bugle mucosa dry. Neck is supple, trachea midline Chest rise symmetrical, breath sounds clear Abdomen soft, bowel tones present Extremities without cyanosis edema. ID ASSESSMENT Assessment: 1. Polymicrobial UTI 2. Resolving encephalopathy and leukocytosis 3. History of metastatic prostate CA 4. Diabetes 5. Hypertension ID RECOMMENDATIONS Plan: Remains stable, continue antibiotics, anticipate discharge on oral Bactrim when cleared by primary . Problems: Consultation Date/Type/Reason Admit Date/Time Sep 03, 2016 at 07:04 Initial Consult Date Type of Consultation: Infectious disease Referring Provider: CHANELLE PAUL MD Exam/Review of Systems Vital Signs Vitals Vital Signs Date Time Temp Pulse Resp B/P Pulse Ox O2 Delivery O2 Flow Rate FiO2 09/08/16 07:10 97.5 18 118/56 94 09/07/16 21:23 83 Intake and Output 09/07/16 09/07/16 09/08/16 15:00 23:00 07:00 Intake Total 100 ml 1620 ml 1055 ml Balance 100 ml 1620 ml 1055 ml Results Result Diagram: 09/08/1621909/08/16219 Results 24 hrs Laboratory Tests Test 09/07/16 17:19 09/07/16 21:10 09/08/16 02:20 09/08/16 05:23 Bedside Glucose 111 107 128 White Blood Count 5.9 # Red Blood Count 2.61 L Hemoglobin 8.0 L Hematocrit 23.8 L Mean Corpuscular Volume 91.2 Mean Corpuscular Hemoglobin 30.7 Mean Corpuscular Hemoglobin Concent 33.6 Red Cell Distribution Width 20.3 H Platelet Count 116 L Mean Platelet Volume 9.2 Neutrophils % 80.5 H Lymphocytes % 11.3 L Monocytes % 5.6 Eosinophils % 1.3 Basophils % 0.0 Nucleated Red Blood Cells % 0.3 H Neutrophils # 4.8 Lymphocytes # 0.7 L Monocytes # 0.3 Eosinophils # 0.1 Basophils # 0.0 Nucleated Red Blood Cells # 0.0 Sodium Level 135 Potassium Level 3.4 L Chloride Level 111 H Carbon Dioxide Level 22 Anion Gap 5 L Blood Urea Nitrogen 14 Creatinine 0.44 L Glucose Level 67 #L Calcium Level 6.6 L Vancomycin Level Trough 7.9 L Test 09/08/16 08:01 09/08/16 12:17 Bedside Glucose 165 180 Medications Medications Current Medications Sodium Chloride (NS) 1,000 ml @ 70 mls/hr [id number] IV Last administered on 02:01; Admin Dose 70 MLS/HR; Start 09/02/16 at 20:36 Ondansetron HCl (Zofran Inj) 4 mg Q6H PRN IV NAUSEA AND/OR VOMITING; Start at 21:00 Acetaminophen (Tylenol Tab) 650 mg Q6H PRN PO PAIN LEVEL 1-3 OR FEVER; Start at 21:00 Morphine Sulfate (morphine) 2 mg Q4H PRN IV PAIN LEVEL 7-10; Start 09/02/16 at 21:00 Enoxaparin Sodium (Lovenox) 30 mg DAILY SC Last administered on 09/08/16 10:10 ; Admin Dose 30 MG; Start 09/03/16 at 09:00 Aspirin (Halfprin) 81 mg DAILY PO Last administered on 09/08/16 10:03; Admin Dose 81 MG; Start 09/04/16 at 09:00 Docusate Sodium (Colace) 100 mg DAILY PO Last administered on 09/08/16 10:03; Admin Dose 100 MG; Start 09/04/16 at 09:00 Losartan Potassium (Cozaar) 100 mg DAILY PO Last administered on 09/08/16 10:03 ; Admin Dose 100 MG; Start 09/04/16 at 09:00 Tamsulosin HCl (Flomax) 0.4 mg DAILY PO Last administered on 09/08/16 10:03; Admin Dose 0.4 MG; Start 09/04/16 at 09:00 Atorvastatin Calcium (Lipitor) 10 mg QHS PO Last administered on 09/07/16 21: 02; Admin Dose 10 MG; Start 09/03/16 at 21:00 Hydralazine HCl (Apresoline) 10 mg Q6H PRN IV SBP>170; Start 09/03/16 at 14:30 Nystatin (Nystatin Cr) 1 applic BID TOP Last administered on 09/08/16 10:11; Admin Dose 1 APPLIC; Start 09/03/16 at 21:00 Miscellaneous Information 1 ea NOTE XX ; Start 09/03/16 at 15:00 Glucose (Glutose) 15 gm Q15M PRN PO DECREASED GLUCOSE; Start 09/03/16 at 15:00 Glucose (Glutose) 22.5 gm Q15M PRN PO DECREASED GLUCOSE; Start 09/03/16 at 15: 00 Dextrose (D50w Syringe) 25 ml Q15M PRN IV DECREASED GLUCOSE; Start 09/03/16 at 15:00 Dextrose (D50w Syringe) 50 ml Q15M PRN IV DECREASED GLUCOSE; Start 09/03/16 at 15:00 Glucagon (Glucagen) 1 mg Q15M PRN IM DECREASED GLUCOSE; Start 09/03/16 at 15:00 Glucose (Glutose) 15 gm Q15M PRN BUCCAL DECREASED GLUCOSE; Start 09/03/16 at 15 :00 Amiodarone HCl (Cordarone) 200 mg DAILY PO Last administered on 09/08/16 10:04 ; Admin Dose 200 MG; Start 09/04/16 at 09:00 Hydralazine HCl (Apresoline) 25 mg BID PO Last administered on 09/07/16 21:02 ; Admin Dose 25 MG; Start 09/04/16 at 09:00 Metoprolol Tartrate (Lopressor) 12.5 mg BID PO Last administered on 09/08/16 10 :04; Admin Dose 12.5 MG; Start 09/04/16 at 09:00 Pantoprazole (Protonix Tab) 40 mg DAILY@06 PO Last administered on 09/08/16 05: 25; Admin Dose 40 MG; Start 09/04/16 at 06:00 Sodium Chloride (Nacl) 1 gm TID PO Last administered on 09/08/16 12:16; Admin Dose 1 GM; Start 09/04/16 at 09:00 Ascorbic Acid (Vitamin C) 500 mg BID PO Last administered on 09/08/16 10:03; Admin Dose 500 MG; Start 09/04/16 at 09:00 Lactobacillus Acidophilus/ Rhamnosus (Culturelle) 1 cap DAILY PO Last administered on 09/08/16 10:03; Admin Dose 1 CAP; Start 09/04/16 at 09:00 Zinc Sulfate (Zinc Sulfate) 220 mg DAILY PO Last administered on 09/08/16 10:03 ; Admin Dose 220 MG; Start 09/04/16 at 09:00; Stop 09/17/16 at 10:00 Multivitamins/ Minerals (Theragran-M) 1 tab DAILY PO Last administered on 10:05; Admin Dose 1 TAB; Start 09/04/16 at 09:00 Diagnostic Test (Pha) (Accu-Chek) 1 ea 02 XX Last administered on 09/04/16 01: 20; Admin Dose 1 EA; Start 09/04/16 at 02:00 Mupirocin 1 applic 1 applic BID TOP Last administered on 09/08/16 10:11; Admin Dose 1 APPLIC; Start 09/06/16 at 21:00; Stop 09/13/16 at 09:01 Caspofungin/ Sodium Chloride (Cancidas/NS) 250 ml @ 250 mls/hr Q24H IV Last administered on 09/07/16 15:09; Admin Dose 250 MLS/HR; Start 09/07/16 at 15:30 Insulin Glargine 8 unit 8 unit QHS SC Last administered on 09/07/16 21:13; Admin Dose 8 UNIT; Start 09/07/16 at 21:00 Ertapenem 1 gm/ Sodium Chloride 100 ml @ 200 mls/hr Q24H IVPB Last administered on 09/07/16 20:53; Admin Dose 200 MLS/HR; Start 09/07/16 at 20:00 Vancomycin HCl/ Sodium Chloride (Vancocin/NS) 250 ml @ 83.333 mls/ hr Q12H IVPB Last administered on 09/08/16 04:00; Admin Dose 83.333 MLS/HR; Start at 03:30 Miscellaneous Information (*Rx Drug Level Order Reminder*) VANCOMYCIN TROUGH 7/ 2 AT 1500 ONCE ONCE XX ; Start 09/09/16 at 15:00; Stop 09/09/16 at 15:01 ARELI ROBLES NP Sep 08, 2016 14:36
[2016-09-08] MEDS ORDERED: FUROSEMIDE 20 MG INJ IV ONE (15:00)
--- NOTE | 2016-09-08 15:27 | RADRPT ---
PROCEDURE: XR Chest. CLINICAL INDICATION: Respiratory distress. TECHNIQUE: AP view of the chest was performed. COMPARISON: September 02, 2016 FINDINGS: There is worsening fluid status. The heart size is stable. There is persistent interstitial pulmon siria edema with small bilateral pleural effusions. 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 IMPRESSION: Worsening fluid status. Stable Osseous metastasis. RPTAT: QQ. .Agata Vázquez MD, MD Date Time Electronically viewed and signed by .Agata Vázquez MD, MD on 09/08/2016 15:26 .F/
--- NOTE | 2016-09-08 15:50 | CONS ---
Date/Time of Note Date/Time of Note DATE: 09/08/16 TIME: 15:46 Assessment/Plan Assessment/Plan Chief Complaint/Hosp Course 86 yo with metastatic prostate cancer who has progressed through lupron/ casodex. I explained to patient's son who was at the bedside that although there are options for the patient, he is so debilitated he is unable to even come to clinic to receive cancer therapy. He agreed that his father is extremely weak. He and his family would like his father to be considered for hospice care -refer for hospice -continue antibiotics for polymicrobial infection Problems: Consultation Date/Type/Reason Admit Date/Time Sep 03, 2016 at 07:04 Date of Consultation: Sep 08, 2016 Type of Consultation: oncology Reason for Consultation prostate ca Referring Provider: CHANELLE PAUL MD Hx of Present Illness 86 yo with metastatic prostate cancer which has progressed through lupron and casodex with worsening bone lesions. Pt has now been admitted from care home with UTI and severe hyponatremia with Na to 116. Pt is currently on vancomycin. ertapenem and caspofungin for polymicrobial uti. Constitutional: no complaints, other (weakness) Eyes: no complaints ENT: no complaints Respiratory: no complaints Cardiovascular: no complaints Gastrointestinal: no complaints Genitourinary: no complaints Musculoskeletal: back pain, bone/joint pain Neurologic: other (weakness) Psychological: nl mood/affect Past Medical History Hypertension, hyperlipidemia, history of metastatic prostate cancer, diabetes mellitus, bilateral knee arthritis, anemia, iron deficiency; chronic hyponatremia secondary to SIADH, history of recent admission from 08/09/2016 to 08/28/2016. Past Surgical History Past Surgical Hx: appendectomy, other Family History Significant Family History: no pertinent family hx Social History Alcohol Use: none Smoking Status: Unknown if ever smoked Drug Use: none Exam/Review of Systems Vital Signs Vitals Vital Signs Date Time Temp Pulse Resp B/P Pulse Ox O2 Delivery O2 Flow Rate FiO2 09/08/16 07:10 97.5 18 118/56 94 09/07/16 21:23 83 Intake and Output 09/07/16 09/07/16 09/08/16 15:00 23:00 07:00 Intake Total 100 ml 1620 ml 1055 ml Balance 100 ml 1620 ml 1055 ml Exam Constitutional: alert, oriented Head: atraumatic, normocephalic Eyes: nl conjunctiva ENMT: nl external ears & nose Neck: non-tender, supple Respiratory: clear to auscultation, normal air movement Cardiovascular: regular rate and rhythm Gastrointestinal: soft Musculoskeletal: muscle weakness Results Result Diagram: 09/08/16 0220 09/08/16 0220 Results 24 hrs Laboratory Tests Test 09/07/16 17:19 09/07/16 21:10 09/08/16 02:20 09/08/16 05:23 Bedside Glucose 111 107 128 White Blood Count 5.9 # Red Blood Count 2.61 L Hemoglobin 8.0 L Hematocrit 23.8 L Mean Corpuscular Volume 91.2 Mean Corpuscular Hemoglobin 30.7 Mean Corpuscular Hemoglobin Concent 33.6 Red Cell Distribution Width 20.3 H Platelet Count 116 L Mean Platelet Volume 9.2 Neutrophils % 80.5 H Lymphocytes % 11.3 L Monocytes % 5.6 Eosinophils % 1.3 Basophils % 0.0 Nucleated Red Blood Cells % 0.3 H Neutrophils # 4.8 Lymphocytes # 0.7 L Monocytes # 0.3 Eosinophils # 0.1 Basophils # 0.0 Nucleated Red Blood Cells # 0.0 Sodium Level 135 Potassium Level 3.4 L Chloride Level 111 H Carbon Dioxide Level 22 Anion Gap 5 L Blood Urea Nitrogen 14 Creatinine 0.44 L Glucose Level 67 #L Calcium Level 6.6 L Vancomycin Level Trough 7.9 L Test 09/08/16 08:01 09/08/16 12:17 Bedside Glucose 165 180 Medications Medications Current Medications Sodium Chloride (NS) 1,000 ml @ 40 mls/hr Q24H IV Last administered on 02:01; Admin Dose 70 MLS/HR; Start 09/02/16 at 20:36 Ondansetron HCl (Zofran Inj) 4 mg Q6H PRN IV NAUSEA AND/OR VOMITING; Start at 21:00 Acetaminophen (Tylenol Tab) 650 mg Q6H PRN PO PAIN LEVEL 1-3 OR FEVER; Start at 21:00 Morphine Sulfate (morphine) 2 mg Q4H PRN IV PAIN LEVEL 7-10; Start 09/02/16 at 21:00 Enoxaparin Sodium (Lovenox) 30 mg DAILY SC Last administered on 09/08/16 10:10 ; Admin Dose 30 MG; Start 09/03/16 at 09:00 Aspirin (Halfprin) 81 mg DAILY PO Last administered on 09/08/16 10:03; Admin Dose 81 MG; Start 09/04/16 at 09:00 Docusate Sodium (Colace) 100 mg DAILY PO Last administered on 09/08/16 10:03; Admin Dose 100 MG; Start 09/04/16 at 09:00 Losartan Potassium (Cozaar) 100 mg DAILY PO Last administered on 09/08/16 10:03 ; Admin Dose 100 MG; Start 09/04/16 at 09:00 Tamsulosin HCl (Flomax) 0.4 mg DAILY PO Last administered on 09/08/16 10:03; Admin Dose 0.4 MG; Start 09/04/16 at 09:00 Atorvastatin Calcium (Lipitor) 10 mg QHS PO Last administered on 09/07/16 21: 02; Admin Dose 10 MG; Start 09/03/16 at 21:00 Hydralazine HCl (Apresoline) 10 mg Q6H PRN IV SBP>170; Start 09/03/16 at 14:30 Nystatin (Nystatin Cr) 1 applic BID TOP Last administered on 09/08/16 10:11; Admin Dose 1 APPLIC; Start 09/03/16 at 21:00 Miscellaneous Information 1 ea NOTE XX ; Start 09/03/16 at 15:00 Glucose (Glutose) 15 gm Q15M PRN PO DECREASED GLUCOSE; Start 09/03/16 at 15:00 Glucose (Glutose) 22.5 gm Q15M PRN PO DECREASED GLUCOSE; Start 09/03/16 at 15: 00 Dextrose (D50w Syringe) 25 ml Q15M PRN IV DECREASED GLUCOSE; Start 09/03/16 at 15:00 Dextrose (D50w Syringe) 50 ml Q15M PRN IV DECREASED GLUCOSE; Start 09/03/16 at 15:00 Glucagon (Glucagen) 1 mg Q15M PRN IM DECREASED GLUCOSE; Start 09/03/16 at 15:00 Glucose (Glutose) 15 gm Q15M PRN BUCCAL DECREASED GLUCOSE; Start 09/03/16 at 15 :00 Amiodarone HCl (Cordarone) 200 mg DAILY PO Last administered on 09/08/16 10:04 ; Admin Dose 200 MG; Start 09/04/16 at 09:00 Hydralazine HCl (Apresoline) 25 mg BID PO Last administered on 09/07/16 21:02 ; Admin Dose 25 MG; Start 09/04/16 at 09:00 Metoprolol Tartrate (Lopressor) 12.5 mg BID PO Last administered on 09/08/16 10 :04; Admin Dose 12.5 MG; Start 09/04/16 at 09:00 Pantoprazole (Protonix Tab) 40 mg DAILY@06 PO Last administered on 09/08/16 05: 25; Admin Dose 40 MG; Start 09/04/16 at 06:00 Sodium Chloride (Nacl) 1 gm TID PO Last administered on 09/08/16 12:16; Admin Dose 1 GM; Start 09/04/16 at 09:00 Ascorbic Acid (Vitamin C) 500 mg BID PO Last administered on 09/08/16 10:03; Admin Dose 500 MG; Start 09/04/16 at 09:00 Lactobacillus Acidophilus/ Rhamnosus (Culturelle) 1 cap DAILY PO Last administered on 09/08/16 10:03; Admin Dose 1 CAP; Start 09/04/16 at 09:00 Zinc Sulfate (Zinc Sulfate) 220 mg DAILY PO Last administered on 09/08/16 10:03 ; Admin Dose 220 MG; Start 09/04/16 at 09:00; Stop 09/17/16 at 10:00 Multivitamins/ Minerals (Theragran-M) 1 tab DAILY PO Last administered on 10:05; Admin Dose 1 TAB; Start 09/04/16 at 09:00 Diagnostic Test (Pha) (Accu-Chek) 1 ea 02 XX Last administered on 09/04/16 01: 20; Admin Dose 1 EA; Start 09/04/16 at 02:00 Mupirocin 1 applic 1 applic BID TOP Last administered on 09/08/16 10:11; Admin Dose 1 APPLIC; Start 09/06/16 at 21:00; Stop 09/13/16 at 09:01 Caspofungin/ Sodium Chloride (Cancidas/NS) 250 ml @ 250 mls/hr Q24H IV Last administered on 09/07/16 15:09; Admin Dose 250 MLS/HR; Start 09/07/16 at 15:30 Insulin Glargine 8 unit 8 unit QHS SC Last administered on 09/07/16 21:13; Admin Dose 8 UNIT; Start 09/07/16 at 21:00 Ertapenem 1 gm/ Sodium Chloride 100 ml @ 200 mls/hr Q24H IVPB Last administered on 09/07/16 20:53; Admin Dose 200 MLS/HR; Start 09/07/16 at 20:00 Vancomycin HCl/ Sodium Chloride (Vancocin/NS) 250 ml @ 83.333 mls/ hr Q12H IVPB Last administered on 09/08/16 04:00; Admin Dose 83.333 MLS/HR; Start at 03:30 Miscellaneous Information (*Rx Drug Level Order Reminder*) VANCOMYCIN TROUGH 09/09 AT 1500 ONCE ONCE XX ; Start 09/09/16 at 15:00; Stop 09/09/16 at 15:01 ZAHEER PRYOR M.D. Sep 08, 2016 15:50
[2016-09-08] MEDS: CASPOFUNGIN 35 MG in SOD CHLORIDE 0.9% 250 ML IV SCH (17:20)
[2016-09-08] MEDS ORDERED: POTASSIUM CHLORIDE (SR) 20 MEQ TAB PO STA (17:53)
--- NOTE | 2016-09-08 17:58 | PN ---
Date/Time of Note Date/Time of Note DATE: 09/08/16 TIME: 17:50 Assessment/Plan VTE Prophylaxis VTE Prophylaxis Intervention: other Lines/Catheters IV Catheter Type (from [facility]): Peripheral IV Urinary Cath still in place: No Assessment/Plan Assessment/Plan - Hypokalemia- replace K, BMP am - Polymicrobial urinary tract infection, including E. coli ESBL, Dr. Rodrigues is following infection disease consultation. Continue antibiotics per ID. - Possible sepsis secondary to urinary tract infection with leukocytosis and encephalopathy, resolving. - Severe hyponatremia,resolved. Dr. Howard is following in nephrology consultation. - Metastatic prostate carcinoma. - Hypertension. Continue Cozaar. - Diabetes mellitus. Continue Lantus and NovoLog. Continue Lovenox for deep venous thrombosis prophylaxis and Pepcid for peptic ulcer disease prophylaxis. Further recommendations based on clinical course. Plan of care discussed with Dr. Gregory. Subjective 24 Hr Interval Summary Free Text/Dictation low k- replace KCL, BUE/BLE swollen. got lasix xi today, [facility] ST[employer]FF ENT: no complaints Respiratory: no complaints Cardiovascular: no complaints Exam/Review of Systems Vital Signs Vitals Vital Signs Date Time Temp Pulse Resp B/P Pulse Ox O2 Delivery O2 Flow Rate FiO2 09/08/16 07:10 97.5 18 118/56 94 09/07/16 21:23 83 Intake and Output 09/07/16 09/07/16 09/08/16 15:00 23:00 07:00 Intake Total 100 ml 1620 ml 1055 ml Balance 100 ml 1620 ml 1055 ml Exam Constitutional: alert, well developed Respiratory: clear to auscultation, normal air movement Cardiovascular: nl pulses, regular rate and rhythm Gastrointestinal: non-tender, soft Musculoskeletal: swelling Extremities: edema Neurological: nl mental status, nl speech Results Result Diagram: 09/08/1621909/08/16 022 Results 24 hrs Laboratory Tests Test 09/07/16 21:10 09/08/16 02:20 09/08/16 05:23 09/08/16 08:01 Bedside Glucose 107 128 165 White Blood Count 5.9 # Red Blood Count 2.61 L Hemoglobin 8.0 L Hematocrit 23.8 L Mean Corpuscular Volume 91.2 Mean Corpuscular Hemoglobin 30.7 Mean Corpuscular Hemoglobin Concent 33.6 Red Cell Distribution Width 20.3 H Platelet Count 116 L Mean Platelet Volume 9.2 Neutrophils % 80.5 H Lymphocytes % 11.3 L Monocytes % 5.6 Eosinophils % 1.3 Basophils % 0.0 Nucleated Red Blood Cells % 0.3 H Neutrophils # 4.8 Lymphocytes # 0.7 L Monocytes # 0.3 Eosinophils # 0.1 Basophils # 0.0 Nucleated Red Blood Cells # 0.0 Sodium Level 135 Potassium Level 3.4 L Chloride Level 111 H Carbon Dioxide Level 22 Anion Gap 5 L Blood Urea Nitrogen 14 Creatinine 0.44 L Glucose Level 67 #L Calcium Level 6.6 L Vancomycin Level Trough 7.9 L Test 09/08/16 12:17 09/08/16 17:20 Bedside Glucose 180 90 Medications Medications Current Medications Sodium Chloride (NS) 1,000 ml @ 40 mls/hr Q24H IV Last administered on 16:14; Admin Dose 40 MLS/HR; Start 09/02/16 at 20:36 Ondansetron HCl (Zofran Inj) 4 mg Q6H PRN IV NAUSEA AND/OR VOMITING; Start at 21:00 Acetaminophen (Tylenol Tab) 650 mg Q6H PRN PO PAIN LEVEL 1-3 OR FEVER; Start at 21:00 Morphine Sulfate (morphine) 2 mg Q4H PRN IV PAIN LEVEL 7-10; Start 09/02/16 at 21:00 Enoxaparin Sodium (Lovenox) 30 mg DAILY SC Last administered on 09/08/16 10:10 ; Admin Dose 30 MG; Start 09/03/16 at 09:00 Aspirin (Halfprin) 81 mg DAILY PO Last administered on 09/08/16 10:03; Admin Dose 81 MG; Start 09/04/16 at 09:00 Docusate Sodium (Colace) 100 mg DAILY PO Last administered on 09/08/16 10:03; Admin Dose 100 MG; Start 09/04/16 at 09:00 Losartan Potassium (Cozaar) 100 mg DAILY PO Last administered on 09/08/16 10:03 ; Admin Dose 100 MG; Start 09/04/16 at 09:00 Tamsulosin HCl (Flomax) 0.4 mg DAILY PO Last administered on 09/08/16 10:03; Admin Dose 0.4 MG; Start 09/04/16 at 09:00 Atorvastatin Calcium (Lipitor) 10 mg QHS PO Last administered on 09/07/16 21: 02; Admin Dose 10 MG; Start 09/03/16 at 21:00 Hydralazine HCl (Apresoline) 10 mg Q6H PRN IV SBP>170; Start 09/03/16 at 14:30 Nystatin (Nystatin Cr) 1 applic BID TOP Last administered on 09/08/16 10:11; Admin Dose 1 APPLIC; Start 09/03/16 at 21:00 Miscellaneous Information 1 ea NOTE XX ; Start 09/03/16 at 15:00 Glucose (Glutose) 15 gm Q15M PRN PO DECREASED GLUCOSE; Start 09/03/16 at 15:00 Glucose (Glutose) 22.5 gm Q15M PRN PO DECREASED GLUCOSE; Start 09/03/16 at 15: 00 Dextrose (D50w Syringe) 25 ml Q15M PRN IV DECREASED GLUCOSE; Start 09/03/16 at 15:00 Dextrose (D50w Syringe) 50 ml Q15M PRN IV DECREASED GLUCOSE; Start 09/03/16 at 15:00 Glucagon (Glucagen) 1 mg Q15M PRN IM DECREASED GLUCOSE; Start 09/03/16 at 15:00 Glucose (Glutose) 15 gm Q15M PRN BUCCAL DECREASED GLUCOSE; Start 09/03/16 at 15 :00 Amiodarone HCl (Cordarone) 200 mg DAILY PO Last administered on 09/08/16 10:04 ; Admin Dose 200 MG; Start 09/04/16 at 09:00 Hydralazine HCl (Apresoline) 25 mg BID PO Last administered on 09/07/16 21:02 ; Admin Dose 25 MG; Start 09/04/16 at 09:00 Metoprolol Tartrate (Lopressor) 12.5 mg BID PO Last administered on 09/08/16 10 :04; Admin Dose 12.5 MG; Start 09/04/16 at 09:00 Pantoprazole (Protonix Tab) 40 mg DAILY@06 PO Last administered on 09/08/16 05: 25; Admin Dose 40 MG; Start 09/04/16 at 06:00 Sodium Chloride (Nacl) 1 gm TID PO Last administered on 09/08/16 12:16; Admin Dose 1 GM; Start 09/04/16 at 09:00 Ascorbic Acid (Vitamin C) 500 mg BID PO Last administered on 09/08/16 10:03; Admin Dose 500 MG; Start 09/04/16 at 09:00 Lactobacillus Acidophilus/ Rhamnosus (Culturelle) 1 cap DAILY PO Last administered on 09/08/16 10:03; Admin Dose 1 CAP; Start 09/04/16 at 09:00 Zinc Sulfate (Zinc Sulfate) 220 mg DAILY PO Last administered on 09/08/16 10:03 ; Admin Dose 220 MG; Start 09/04/16 at 09:00; Stop 09/17/16 at 10:00 Multivitamins/ Minerals (Theragran-M) 1 tab DAILY PO Last administered on 10:05; Admin Dose 1 TAB; Start 09/04/16 at 09:00 Diagnostic Test (Pha) (Accu-Chek) 1 ea 02 XX Last administered on 09/04/16 01: 20; Admin Dose 1 EA; Start 09/04/16 at 02:00 Mupirocin 1 applic 1 applic BID TOP Last administered on 09/08/16 10:11; Admin Dose 1 APPLIC; Start 09/06/16 at 21:00; Stop 09/13/16 at 09:01 Caspofungin/ Sodium Chloride (Cancidas/NS) 250 ml @ 250 mls/hr Q24H IV Last administered on 09/08/16 17:20; Admin Dose 250 MLS/HR; Start 09/07/16 at 15:30 Insulin Glargine 8 unit 8 unit QHS SC Last administered on 09/07/16 21:13; Admin Dose 8 UNIT; Start 09/07/16 at 21:00 Ertapenem 1 gm/ Sodium Chloride 100 ml @ 200 mls/hr Q24H IVPB Last administered on 09/07/16 20:53; Admin Dose 200 MLS/HR; Start 09/07/16 at 20:00 Vancomycin HCl/ Sodium Chloride (Vancocin/NS) 250 ml @ 83.333 mls/ hr Q12H IVPB Last administered on 09/08/16 16:14; Admin Dose 83.333 MLS/HR; Start at 03:30 Miscellaneous Information (*Rx Drug Level Order Reminder*) VANCOMYCIN TROUGH 09/09 AT 1530 ONCE ONCE XX ; Start 09/09/16 at 15:30; Stop 09/09/16 at 15:31 BIBIANA DUKE Sep 08, 2016 17:58
[2016-09-08] MEDS: INSULIN GLARGINE [LANtus] 3 ML PEN SC SCH (20:36)
[2016-09-08] MEDS: ERTAPENEM SODIUM 1 GM in SOD CHLORIDE 0.9% 100 ML IVPB SCH (20:37)
[2016-09-08] MEDS: ATORVASTATIN 10 MG TAB PO SCH (20:38)
[2016-09-08 21:40] VITALS: BP 120/57; RESP 18
--- NOTE | 2016-09-08 22:39 | CONS ---
Date/Time of Note Date/Time of Note DATE: 09/08/16 TIME: 22:36 Assessment/Plan Assessment/Plan Additional Assessment/Plan 1. Severe hyponatremia with sodium 116 on admission, likely secondary to a combination of syndrome of inappropriate antidiuretic hormone and hypovolemic hyponatremia. 2. Acute metabolic encephalopathy from severe hyponatremia and urinary tract infection. 3. Urinary tract infection. 4. 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 Required tolvaptan on last admission. 5. History of metastatic prostate cancer. 6. History of hypertension. 7. History of hyperlipidemia. 8. History of bilateral knee arthritis. 9. Acute hyperkalemia secondary to possible prerenal azotemia, resolved. 10. Hypocalcemia PLAN: S/p 3 % saline, d/c NS Ca 6.6- will check albumin with am labs IV a bx meropenem Cr normal, K replaced for today will follo wup Consultation Date/Type/Reason Admit Date/Time Sep 03, 2016 at 07:04 Type of Consultation: NEPHROLOGY Referring Provider: CHANELLE PAUL MD 24 HR Interval Summary Free Text/Dictation stable , K 3.4 Exam/Review of Systems Vital Signs Vitals Vital Signs Date Time Temp Pulse Resp B/P Pulse Ox O2 Delivery O2 Flow Rate FiO2 09/08/16 21:40 98.2 68 18 120/57 97 Intake and Output 09/07/16 09/07/16 09/08/16 14:59 22:59 06:59 Intake Total 100 ml 1620 ml 805 ml Balance 100 ml 1620 ml 805 ml Results Result Diagram: 09/08/160 09/08/16 0220 Results 24 hrs Laboratory Tests Test 09/08/16 02:20 09/08/16 05:23 09/08/16 08:01 09/08/16 12:17 White Blood Count 5.9 # Red Blood Count 2.61 L Hemoglobin 8.0 L Hematocrit 23.8 L Mean Corpuscular Volume 91.2 Mean Corpuscular Hemoglobin 30.7 Mean Corpuscular Hemoglobin Concent 33.6 Red Cell Distribution Width 20.3 H Platelet Count 116 L Mean Platelet Volume 9.2 Neutrophils % 80.5 H Lymphocytes % 11.3 L Monocytes % 5.6 Eosinophils % 1.3 Basophils % 0.0 Nucleated Red Blood Cells % 0.3 H Neutrophils # 4.8 Lymphocytes # 0.7 L Monocytes # 0.3 Eosinophils # 0.1 Basophils # 0.0 Nucleated Red Blood Cells # 0.0 Sodium Level 135 Potassium Level 3.4 L Chloride Level 111 H Carbon Dioxide Level 22 Anion Gap 5 L Blood Urea Nitrogen 14 Creatinine 0.44 L Glucose Level 67 #L Calcium Level 6.6 L Vancomycin Level Trough 7.9 L Bedside Glucose 128 165 180 Test 09/08/16 17:20 09/08/16 20:34 Bedside Glucose 90 112 Medications Medications Current Medications Sodium Chloride (NS) 1,000 ml @ 40 mls/hr Q24H IV Last administered on 16:14; Admin Dose 40 MLS/HR; Start 09/02/16 at 20:36 Ondansetron HCl (Zofran Inj) 4 mg Q6H PRN IV NAUSEA AND/OR VOMITING; Start at 21:00 Acetaminophen (Tylenol Tab) 650 mg Q6H PRN PO PAIN LEVEL 1-3 OR FEVER; Start at 21:00 Morphine Sulfate (morphine) 2 mg Q4H PRN IV PAIN LEVEL 7-10; Start 09/02/16 at 21:00 Enoxaparin Sodium (Lovenox) 30 mg DAILY SC Last administered on 09/08/16 10:10 ; Admin Dose 30 MG; Start 09/03/16 at 09:00 Aspirin (Halfprin) 81 mg DAILY PO Last administered on 09/08/16 10:03; Admin Dose 81 MG; Start 09/04/16 at 09:00 Docusate Sodium (Colace) 100 mg DAILY PO Last administered on 09/08/16 10:03; Admin Dose 100 MG; Start 09/04/16 at 09:00 Losartan Potassium (Cozaar) 100 mg DAILY PO Last administered on 09/08/16 10:03 ; Admin Dose 100 MG; Start 09/04/16 at 09:00 Tamsulosin HCl (Flomax) 0.4 mg DAILY PO Last administered on 09/08/16 10:03; Admin Dose 0.4 MG; Start 09/04/16 at 09:00 Atorvastatin Calcium (Lipitor) 10 mg QHS PO Last administered on 09/08/16 20:38 ; Admin Dose 10 MG; Start 09/03/16 at 21:00 Hydralazine HCl (Apresoline) 10 mg Q6H PRN IV SBP>170; Start 09/03/16 at 14:30 Nystatin (Nystatin Cr) 1 applic BID TOP Last administered on 09/08/16 20:39; Admin Dose 1 APPLIC; Start 09/03/16 at 21:00 Miscellaneous Information 1 ea NOTE XX ; Start 09/03/16 at 15:00 Glucose (Glutose) 15 gm Q15M PRN PO DECREASED GLUCOSE; Start 09/03/16 at 15:00 Glucose (Glutose) 22.5 gm Q15M PRN PO DECREASED GLUCOSE; Start 09/03/16 at 15: 00 Dextrose (D50w Syringe) 25 ml Q15M PRN IV DECREASED GLUCOSE; Start 09/03/16 at 15:00 Dextrose (D50w Syringe) 50 ml Q15M PRN IV DECREASED GLUCOSE; Start 09/03/16 at 15:00 Glucagon (Glucagen) 1 mg Q15M PRN IM DECREASED GLUCOSE; Start 09/03/16 at 15:00 Glucose (Glutose) 15 gm Q15M PRN BUCCAL DECREASED GLUCOSE; Start 09/03/16 at 15 :00 Amiodarone HCl (Cordarone) 200 mg DAILY PO Last administered on 09/08/16 10:04 ; Admin Dose 200 MG; Start 09/04/16 at 09:00 Hydralazine HCl (Apresoline) 25 mg BID PO Last administered on 09/08/16 20:38; Admin Dose 25 MG; Start 09/04/16 at 09:00 Metoprolol Tartrate (Lopressor) 12.5 mg BID PO Last administered on 09/08/16 20 :38; Admin Dose 12.5 MG; Start 09/04/16 at 09:00 Pantoprazole (Protonix Tab) 40 mg DAILY@06 PO Last administered on 09/08/16 05: 25; Admin Dose 40 MG; Start 09/04/16 at 06:00 Sodium Chloride (Nacl) 1 gm TID PO Last administered on 09/08/16 20:38; Admin Dose 1 GM; Start 09/04/16 at 09:00 Ascorbic Acid (Vitamin C) 500 mg BID PO Last administered on 09/08/16 20:37; Admin Dose 500 MG; Start 09/04/16 at 09:00 Lactobacillus Acidophilus/ Rhamnosus (Culturelle) 1 cap DAILY PO Last administered on 09/08/16 10:03; Admin Dose 1 CAP; Start 09/04/16 at 09:00 Zinc Sulfate (Zinc Sulfate) 220 mg DAILY PO Last administered on 09/08/16 10:03 ; Admin Dose 220 MG; Start 09/04/16 at 09:00; Stop 09/17/16 at 10:00 Multivitamins/ Minerals (Theragran-M) 1 tab DAILY PO Last administered on 10:05; Admin Dose 1 TAB; Start 09/04/16 at 09:00 Diagnostic Test (Pha) (Accu-Chek) 1 ea 02 XX Last administered on 09/04/16 01: 20; Admin Dose 1 EA; Start 09/04/16 at 02:00 Mupirocin 1 applic 1 applic BID TOP Last administered on 09/08/16 20:39; Admin Dose 1 APPLIC; Start 09/06/16 at 21:00; Stop 09/13/16 at 09:01 Caspofungin/ Sodium Chloride (Cancidas/NS) 250 ml @ 250 mls/hr Q24H IV Last administered on 09/08/16 17:20; Admin Dose 250 MLS/HR; Start 09/07/16 at 15:30 Insulin Glargine 8 unit 8 unit QHS SC Last administered on 09/08/16 20:36; Admin Dose 8 UNIT; Start 09/07/16 at 21:00 Ertapenem 1 gm/ Sodium Chloride 100 ml @ 200 mls/hr Q24H IVPB Last administered on 09/08/16 20:37; Admin Dose 200 MLS/HR; Start 09/07/16 at 20:00 Vancomycin HCl/ Sodium Chloride (Vancocin/NS) 250 ml @ 83.333 mls/ hr Q12H IVPB Last administered on 09/08/16 16:14; Admin Dose 83.333 MLS/HR; Start at 03:30 Miscellaneous Information (*Rx Drug Level Order Reminder*) VANCOMYCIN TROUGH 09/09 AT 1530 ONCE ONCE XX ; Start 09/09/16 at 15:30; Stop 09/09/16 at 15:31 KARLENE MUÑOZ MD Sep 08, 2016 22:39
[2016-09-09] MEDS: ACCU-CHEK XX SCH (02:00)
[2016-09-09] MEDS: VANCOMYCIN 1.25 GM in SOD CHLORIDE 0.9% 250 ML IVPB SCH (03:42)
[2016-09-09] MEDS ORDERED: VANCOMYCIN 1.5 GM in SOD CHLORIDE 0.9% 250 ML IVPB SCH (04:00)
[2016-09-09] MEDS: PANTOPRAZOLE (EC) 40 MG TAB PO SCH (05:52)
[2016-09-09 05:53] LABS: BASOPHILS % 0.2 % (0.0-2.0); EOSINOPHILS # 0.1 10^3/ul (0.0-0.5); EOSINOPHILS % 1.5 % (0.0-7.0); HEMATOCRIT 25.5 % (42.0-52.0); HEMOGLOBIN 7.9 g/dl (14.0-18.0); LYMPHOCYTES # 0.7 10^3/ul (0.8-2.9); LYMPHOCYTES % 14.1 % (15.0-51.0); MEAN CORPUSCULAR HEMOGLOBIN 28.7 pg (29.0-33.0); MEAN CORPUSCULAR VOLUME 92.7 fl (82.0-101.0); MONOCYTE # 0.3 10^3/ul (0.3-0.9); MONOCYTES % 5.9 % (0.0-11.0); NUCLEATED RED BLOOD CELLS% 0.4 /100WBC (0.0-0.0); PLATELET COUNT 128 10^3/UL (140-415); RED BLOOD COUNT 2.75 10^6/ul (4.70-6.10); RED CELL DISTRIBUTION WIDTH 20.7 % (11.5-14.5); WHITE BLOOD COUNT 5.2 10^3/ul (4.8-10.8)
[2016-09-09 06:03] LABS: BILIRUBIN,INDIRECT 0.1 mg/dl (0-1.1); BILIRUBIN,TOTAL 0.1 mg/dl (0.2-1.3); CALCIUM 7.2 mg/dl (8.4-10.2); CREATININE 0.4 mg/dl (0.61-1.24); POTASSIUM 3.8 mmol/L (3.5-5.1)
[2016-09-09 06:38] LABS: ADD SCAN DIFF NO
[2016-09-09 07:18] VITALS: BP 133/63; RESP 18
[2016-09-09] MEDS: INSULIN ASPART [NOVOLOG] 3 ML PEN SC SCH ×7 (08:00→20:22)
[2016-09-09] MEDS: ENOXAPARIN 30 MG/0.3 ML SYG SC SCH (08:51)
[2016-09-09] MEDS: LACTOBACILLUS RHAMNOSUS CAP PO SCH (08:52)
[2016-09-09] MEDS: MULTIVITAMINS/MINERALS TAB PO SCH (08:52)
[2016-09-09] MEDS: TAMSULOSIN (SR) 0.4 MG CAP PO SCH (08:52)
[2016-09-09] MEDS: ASCORBIC ACID 500 MG TAB PO SCH ×2 (08:52→20:07)
[2016-09-09] MEDS: ASPIRIN (EC) 81 MG TAB PO SCH (08:52)
[2016-09-09] MEDS: SODIUM CHLORIDE 1 GM TAB PO SCH ×3 (08:52→20:07)
[2016-09-09] MEDS: ZINC SULFATE 220 MG CAP PO SCH (08:52)
[2016-09-09] MEDS: AMIODARONE 200 MG TAB PO SCH (08:53)
[2016-09-09] MEDS: METOPROLOL 25 MG TAB PO SCH ×2 (08:53→20:07)
[2016-09-09] MEDS: DOCUSATE SODIUM 100 MG CAP PO SCH (08:53)
[2016-09-09] MEDS: MUPIROCIN 2% 22 GM OINT TOP SCH ×2 (08:54→20:08)
[2016-09-09] MEDS: NYSTATIN 15 GM CR TOP SCH ×2 (08:54→20:08)
[2016-09-09] MEDS: LOSARTAN 50 MG TAB PO SCH (08:54)
[2016-09-09] MEDS: BALSAM PERU/CASTOR OIL 60 GM TUBE TOP SCH (08:54)
[2016-09-09] MEDS: SOD CHLORIDE 0.9% 1,000 ML IV SCH (14:24)
--- NOTE | 2016-09-09 15:24 | CONS ---
Date/Time of Note Date/Time of Note DATE: 09/09/16 TIME: 15:21 Assessment/Plan Assessment/Plan Additional Assessment/Plan 1. Severe hyponatremia with sodium 116 on admission, likely secondary to a combination of syndrome of inappropriate antidiuretic hormone and hypovolemic hyponatremia. 2. Acute metabolic encephalopathy from severe hyponatremia and urinary tract infection. 3. Urinary tract infection. 4. 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 Required tolvaptan on last admission. 5. History of metastatic prostate cancer. 6. History of hypertension. 7. History of hyperlipidemia. 8. History of bilateral knee arthritis. 9. Acute hyperkalemia secondary to possible prerenal azotemia, resolved. 10. Hypocalcemia Ca 7.2, alb 2.0, corrected Ca is 8.8 PLAN: S/p 3 % saline, Corrected Ca is 8.8 IV a bx meropenem Cr normal, will follo wup family awaits oncology opinion before deciding for hospice care Consultation Date/Type/Reason Admit Date/Time Sep 03, 2016 at 07:04 Type of Consultation: NEPHROLOGY Referring Provider: CHANELLE PAUL MD 24 HR Interval Summary Free Text/Dictation no acute evens,family awaits oncology opinion about prostate CA Exam/Review of Systems Vital Signs Vitals Vital Signs Date Time Temp Pulse Resp B/P Pulse Ox O2 Delivery O2 Flow Rate FiO2 09/09/16 07:18 97.8 68 18 133/63 96 Intake and Output 09/08/16 09/08/16 09/09/16 15:00 23:00 07:00 Intake Total 2220 ml 970 ml Balance 2220 ml 970 ml Exam GENERAL: Awake, alert, not oriented to place, person, and time. HEENT: Pupils equal and round, reactive to light and accommodation. Extraocular muscles are intact. NECK: Supple. No JVD, no lymphadenopathy. LUNGS: Clear to auscultation. No crackles or wheezes. HEART: S1, S2 with regular rhythm. No murmur. ABDOMEN: Soft, nontender, nondistended. Bowel sounds are present. EXTREMITIES: No clubbing, cyanosis, edema. NEUROLOGICAL: Uncooperative for exam. Results Result Diagram: 09/09/16 0430 09/09/16 0430 Results 24 hrs Laboratory Tests Test 09/08/16 17:20 09/08/16 20:34 09/09/16 04:30 09/09/16 07:59 Bedside Glucose 90 112 84 White Blood Count 5.2 Red Blood Count 2.75 L Hemoglobin 7.9 L Hematocrit 25.5 L Mean Corpuscular Volume 92.7 Mean Corpuscular Hemoglobin 28.7 L Mean Corpuscular Hemoglobin Concent 31.0 L Red Cell Distribution Width 20.7 H Platelet Count 128 L Mean Platelet Volume 10.0 Neutrophils % 77.0 Lymphocytes % 14.1 L Monocytes % 5.9 Eosinophils % 1.5 Basophils % 0.2 Nucleated Red Blood Cells % 0.4 H Neutrophils # 4.0 Lymphocytes # 0.7 L Monocytes # 0.3 Eosinophils # 0.1 Basophils # 0.0 Nucleated Red Blood Cells # 0.0 Sodium Level 139 Potassium Level 3.8 Chloride Level 108 Carbon Dioxide Level 22 Anion Gap 13 # Blood Urea Nitrogen 14 Creatinine 0.40 L Glucose Level 105 Calcium Level 7.2 L Total Bilirubin 0.1 L Direct Bilirubin 0.00 Indirect Bilirubin 0.1 Aspartate Amino Transf (AST/SGOT) 33 Alanine Aminotransferase (ALT/SGPT) 37 Alkaline Phosphatase 693 H Total Protein 4.0 L Albumin 2.0 L Globulin 2.00 Albumin/Globulin Ratio 1.00 Test 09/09/16 11:59 Bedside Glucose 154 Medications Medications Current Medications Sodium Chloride (NS) 1,000 ml @ 40 mls/hr Q24H IV Last administered on 16:14; Admin Dose 40 MLS/HR; Start 09/02/16 at 20:36 Ondansetron HCl (Zofran Inj) 4 mg Q6H PRN IV NAUSEA AND/OR VOMITING; Start at 21:00 Acetaminophen (Tylenol Tab) 650 mg Q6H PRN PO PAIN LEVEL 1-3 OR FEVER; Start at 21:00 Morphine Sulfate (morphine) 2 mg Q4H PRN IV PAIN LEVEL 7-10; Start 09/02/16 at 21:00 Enoxaparin Sodium (Lovenox) 30 mg DAILY SC Last administered on 09/09/16 08:51 ; Admin Dose 30 MG; Start 09/03/16 at 09:00 Aspirin (Halfprin) 81 mg DAILY PO Last administered on 09/09/16 08:52; Admin Dose 81 MG; Start 09/04/16 at 09:00 Docusate Sodium (Colace) 100 mg DAILY PO Last administered on 09/09/16 08:53; Admin Dose 100 MG; Start 09/04/16 at 09:00 Losartan Potassium (Cozaar) 100 mg DAILY PO Last administered on 09/09/16 08:54 ; Admin Dose 100 MG; Start 09/04/16 at 09:00 Tamsulosin HCl (Flomax) 0.4 mg DAILY PO Last administered on 09/09/16 08:52; Admin Dose 0.4 MG; Start 09/04/16 at 09:00 Atorvastatin Calcium (Lipitor) 10 mg QHS PO Last administered on 09/08/16 20:38 ; Admin Dose 10 MG; Start 09/03/16 at 21:00 Hydralazine HCl (Apresoline) 10 mg Q6H PRN IV SBP>170; Start 09/03/16 at 14:30 Nystatin (Nystatin Cr) 1 applic BID TOP Last administered on 09/09/16 08:54; Admin Dose 1 APPLIC; Start 09/03/16 at 21:00 Miscellaneous Information 1 ea NOTE XX ; Start 09/03/16 at 15:00 Glucose (Glutose) 15 gm Q15M PRN PO DECREASED GLUCOSE; Start 09/03/16 at 15:00 Glucose (Glutose) 22.5 gm Q15M PRN PO DECREASED GLUCOSE; Start 09/03/16 at 15: 00 Dextrose (D50w Syringe) 25 ml Q15M PRN IV DECREASED GLUCOSE; Start 09/03/16 at 15:00 Dextrose (D50w Syringe) 50 ml Q15M PRN IV DECREASED GLUCOSE; Start 09/03/16 at 15:00 Glucagon (Glucagen) 1 mg Q15M PRN IM DECREASED GLUCOSE; Start 09/03/16 at 15:00 Glucose (Glutose) 15 gm Q15M PRN BUCCAL DECREASED GLUCOSE; Start 09/03/16 at 15 :00 Amiodarone HCl (Cordarone) 200 mg DAILY PO Last administered on 09/09/16 08:53 ; Admin Dose 200 MG; Start 09/04/16 at 09:00 Hydralazine HCl (Apresoline) 25 mg BID PO Last administered on 09/09/16 08:52; Admin Dose 25 MG; Start 09/04/16 at 09:00 Metoprolol Tartrate (Lopressor) 12.5 mg BID PO Last administered on 09/09/16 08 :53; Admin Dose 12.5 MG; Start 09/04/16 at 09:00 Pantoprazole (Protonix Tab) 40 mg DAILY@06 PO Last administered on 09/09/16 05: 52; Admin Dose 40 MG; Start 09/04/16 at 06:00 Sodium Chloride (Nacl) 1 gm TID PO Last administered on 09/09/16 12:35; Admin Dose 1 GM; Start 09/04/16 at 09:00 Ascorbic Acid (Vitamin C) 500 mg BID PO Last administered on 09/09/16 08:52; Admin Dose 500 MG; Start 09/04/16 at 09:00 Lactobacillus Acidophilus/ Rhamnosus (Culturelle) 1 cap DAILY PO Last administered on 09/09/16 08:52; Admin Dose 1 CAP; Start 09/04/16 at 09:00 Zinc Sulfate (Zinc Sulfate) 220 mg DAILY PO Last administered on 09/09/16 08:52 ; Admin Dose 220 MG; Start 09/04/16 at 09:00; Stop 09/17/16 at 10:00 Multivitamins/ Minerals (Theragran-M) 1 tab DAILY PO Last administered on 08:52; Admin Dose 1 TAB; Start 09/04/16 at 09:00 Diagnostic Test (Pha) (Accu-Chek) 1 ea 02 XX Last administered on 09/04/16 01: 20; Admin Dose 1 EA; Start 09/04/16 at 02:00 Mupirocin 1 applic 1 applic BID TOP Last administered on 09/09/16 08:54; Admin Dose 1 APPLIC; Start 09/06/16 at 21:00; Stop 09/13/16 at 09:01 Caspofungin/ Sodium Chloride (Cancidas/NS) 250 ml @ 250 mls/hr Q24H IV Last administered on 09/08/16 17:20; Admin Dose 250 MLS/HR; Start 09/07/16 at 15:30 Insulin Glargine 8 unit 8 unit QHS SC Last administered on 09/08/16 20:36; Admin Dose 8 UNIT; Start 09/07/16 at 21:00 Ertapenem/Sodium Chloride (Invanz/NS) 100 ml @ 200 mls/hr Q24H IVPB Last administered on 09/08/16t 20:37; Admin Dose 200 MLS/HR; Start 09/07/16 at 20:00 Miscellaneous Information VANCOMYCIN TROUGH 09/09 AT 1530 ONCE ONCE XX ; Start at 15:30; Stop 09/09/16 at 15:31 Vancomycin HCl/ Sodium Chloride (Vancocin/NS) 250 ml @ 83.333 mls/ hr Q12H IVPB ; Start 09/09/16 at 16:30 KARLENE MUÑOZ MD Sep 09, 2016 15:24
[2016-09-09] MEDS: CASPOFUNGIN 35 MG in SOD CHLORIDE 0.9% 250 ML IV SCH (15:57)
--- NOTE | 2016-09-09 16:18 | CONS ---
Date/Time of Note Date/Time of Note DATE: 09/09/16 TIME: 16:12 Assessment/Plan Assessment/Plan Chief Complaint/Hosp Course Assessment/Plan Assessment/Plan Chief Complaint/Hosp Course ID PROGRESS NOTE Antibiotics: Vancomycin Diflucan Invanz Subjective: No Acute Changes Overnight. No Fever. No Acute Distress. Microbiology: Urine culture growing MRSA, enterococcus species, Xochilt albicans , E. coli ESBL LABS 09/08/16 0220 09/08/16 0220 [Image 1] Physical examination: Obese, well-developed elderly man who is in no distress Head atraumatic normocephalic, sclera nonicteric, bugle mucosa dry. Neck is supple, trachea midline Chest rise symmetrical, breath sounds clear Abdomen soft, bowel tones present Extremities without cyanosis edema. ID ASSESSMENT Assessment: 1. Polymicrobial UTI 2. Resolving encephalopathy and leukocytosis 3. History of metastatic prostate CA 4. Diabetes 5. Hypertension 6. Anemia ID RECOMMENDATIONS Plan: Continue antibiotics. Anticipate discharge on oral Bactrim when cleared by primary MD. Monitor Labs. Problems: Consultation Date/Type/Reason Admit Date/Time Sep 03, 2016 at 07:04 Initial Consult Date 09/08/16 Type of Consultation: ID Referring Provider: CHANELLE PAUL MD Exam/Review of Systems Vital Signs Vitals Vital Signs Date Time Temp Pulse Resp B/P Pulse Ox O2 Delivery O2 Flow Rate FiO2 09/09/16 07:18 97.8 68 18 133/63 96 Intake and Output 09/08/16 09/08/16 09/09/16 15:00 23:00 07:00 Intake Total 2220 ml 970 ml Balance 2220 ml 970 ml Results Result Diagram: 09/09/16 0430 09/09/16 0430 Results 24 hrs Laboratory Tests Test 09/08/16 17:20 09/08/16 20:34 09/09/16 04:30 09/09/16 07:59 Bedside Glucose 90 112 84 White Blood Count 5.2 Red Blood Count 2.75 L Hemoglobin 7.9 L Hematocrit 25.5 L Mean Corpuscular Volume 92.7 Mean Corpuscular Hemoglobin 28.7 L Mean Corpuscular Hemoglobin Concent 31.0 L Red Cell Distribution Width 20.7 H Platelet Count 128 L Mean Platelet Volume 10.0 Neutrophils % 77.0 Lymphocytes % 14.1 L Monocytes % 5.9 Eosinophils % 1.5 Basophils % 0.2 Nucleated Red Blood Cells % 0.4 H Neutrophils # 4.0 Lymphocytes # 0.7 L Monocytes # 0.3 Eosinophils # 0.1 Basophils # 0.0 Nucleated Red Blood Cells # 0.0 Sodium Level 139 Potassium Level 3.8 Chloride Level 108 Carbon Dioxide Level 22 Anion Gap 13 # Blood Urea Nitrogen 14 Creatinine 0.40 L Glucose Level 105 Calcium Level 7.2 L Total Bilirubin 0.1 L Direct Bilirubin 0.00 Indirect Bilirubin 0.1 Aspartate Amino Transf (AST/SGOT) 33 Alanine Aminotransferase (ALT/SGPT) 37 Alkaline Phosphatase 693 H Total Protein 4.0 L Albumin 2.0 L Globulin 2.00 Albumin/Globulin Ratio 1.00 Test 09/09/16 11:59 Bedside Glucose 154 Medications Medications Current Medications Sodium Chloride (NS) 1,000 ml @ 40 mls/hr Q24H IV Last administered on 16:14; Admin Dose 40 MLS/HR; Start 09/02/16 at 20:36 Ondansetron HCl (Zofran Inj) 4 mg Q6H PRN IV NAUSEA AND/OR VOMITING; Start at 21:00 Acetaminophen (Tylenol Tab) 650 mg Q6H PRN PO PAIN LEVEL 1-3 OR FEVER; Start at 21:00 Morphine Sulfate (morphine) 2 mg Q4H PRN IV PAIN LEVEL 7-10; Start 09/02/16 at 21:00 Enoxaparin Sodium (Lovenox) 30 mg DAILY SC Last administered on 09/09/16 08:51 ; Admin Dose 30 MG; Start 09/03/16 at 09:00 Aspirin (Halfprin) 81 mg DAILY PO Last administered on 09/09/16 08:52; Admin Dose 81 MG; Start 09/04/16 at 09:00 Docusate Sodium (Colace) 100 mg DAILY PO Last administered on 09/09/16 08:53; Admin Dose 100 MG; Start 09/04/16 at 09:00 Losartan Potassium (Cozaar) 100 mg DAILY PO Last administered on 09/09/16 08:54 ; Admin Dose 100 MG; Start 09/04/16 at 09:00 Tamsulosin HCl (Flomax) 0.4 mg DAILY PO Last administered on 09/09/16 08:52; Admin Dose 0.4 MG; Start 09/04/16 at 09:00 Atorvastatin Calcium (Lipitor) 10 mg QHS PO Last administered on 09/08/16 20:38 ; Admin Dose 10 MG; Start 09/03/16 at 21:00 Hydralazine HCl (Apresoline) 10 mg Q6H PRN IV SBP>170; Start 09/03/16 at 14:30 Nystatin (Nystatin Cr) 1 applic BID TOP Last administered on 09/09/16 08:54; Admin Dose 1 APPLIC; Start 09/03/16 at 21:00 Miscellaneous Information 1 ea NOTE XX ; Start 09/03/16 at 15:00 Glucose (Glutose) 15 gm Q15M PRN PO DECREASED GLUCOSE; Start 09/03/16 at 15:00 Glucose (Glutose) 22.5 gm Q15M PRN PO DECREASED GLUCOSE; Start 09/03/16 at 15: 00 Dextrose (D50w Syringe) 25 ml Q15M PRN IV DECREASED GLUCOSE; Start 09/03/16 at 15:00 Dextrose (D50w Syringe) 50 ml Q15M PRN IV DECREASED GLUCOSE; Start 09/03/16 at 15:00 Glucagon (Glucagen) 1 mg Q15M PRN IM DECREASED GLUCOSE; Start 09/03/16 at 15:00 Glucose (Glutose) 15 gm Q15M PRN BUCCAL DECREASED GLUCOSE; Start 09/03/16 at 15 :00 Amiodarone HCl (Cordarone) 200 mg DAILY PO Last administered on 09/09/16 08:53 ; Admin Dose 200 MG; Start 09/04/16 at 09:00 Hydralazine HCl (Apresoline) 25 mg BID PO Last administered on 09/09/16 08:52; Admin Dose 25 MG; Start 09/04/16 at 09:00 Metoprolol Tartrate (Lopressor) 12.5 mg BID PO Last administered on 09/09/16 08 :53; Admin Dose 12.5 MG; Start 09/04/16 at 09:00 Pantoprazole (Protonix Tab) 40 mg DAILY@06 PO Last administered on 09/09/16 05: 52; Admin Dose 40 MG; Start 09/04/16 at 06:00 Sodium Chloride (Nacl) 1 gm TID PO Last administered on 09/09/16 12:35; Admin Dose 1 GM; Start 09/04/16 at 09:00 Ascorbic Acid (Vitamin C) 500 mg BID PO Last administered on 09/09/16 08:52; Admin Dose 500 MG; Start 09/04/16 at 09:00 Lactobacillus Acidophilus/ Rhamnosus (Culturelle) 1 cap DAILY PO Last administered on 09/09/16 08:52; Admin Dose 1 CAP; Start 09/04/16 at 09:00 Zinc Sulfate (Zinc Sulfate) 220 mg DAILY PO Last administered on 09/09/16 08:52 ; Admin Dose 220 MG; Start 09/04/16 at 09:00; Stop 09/17/16 at 10:00 Multivitamins/ Minerals (Theragran-M) 1 tab DAILY PO Last administered on 08:52; Admin Dose 1 TAB; Start 09/04/16 at 09:00 Diagnostic Test (Pha) (Accu-Chek) 1 ea 02 XX Last administered on 09/04/16 01: 20; Admin Dose 1 EA; Start 09/04/16 at 02:00 Mupirocin 1 applic 1 applic BID TOP Last administered on 09/09/16 08:54; Admin Dose 1 APPLIC; Start 09/06/16 at 21:00; Stop 09/13/16 at 09:01 Caspofungin/ Sodium Chloride (Cancidas/NS) 250 ml @ 250 mls/hr Q24H IV Last administered on 09/09/16 15:57; Admin Dose 250 MLS/HR; Start 09/07/16 at 15:30 Insulin Glargine 8 unit 8 unit QHS SC Last administered on 09/08/16 20:36; Admin Dose 8 UNIT; Start 09/07/16 at 21:00 Ertapenem 1 gm/ Sodium Chloride 100 ml @ 200 mls/hr Q24H IVPB Last administered on 09/08/16 20:37; Admin Dose 200 MLS/HR; Start 09/07/16 at 20:00 Vancomycin HCl/ Sodium Chloride (Vancocin/NS) 250 ml @ 83.333 mls/ hr Q12H IVPB ; Start 09/09/16 at 16:30 TRISTIN WICK NP Sep 09, 2016 16:18
[2016-09-09] MEDS ORDERED: VANCOMYCIN 1.25 GM in SOD CHLORIDE 0.9% 250 ML IVPB SCH (16:30)
--- NOTE | 2016-09-09 16:36 | PN ---
Date/Time of Note Date/Time of Note DATE: 09/09/16 TIME: 16:34 Assessment/Plan Lines/Catheters IV Catheter Type (from [facility]): Peripheral IV Urinary Cath still in place: No Assessment/Plan Assessment/Plan - Hypokalemia- resolved, BMP am - Polymicrobial urinary tract infection, including E. coli ESBL, - per Dr. Rodrigues is following infection disease consultation. - Possible sepsis secondary to urinary tract infection with leukocytosis and encephalopathy, resolving. - Severe hyponatremia,resolved. Dr. Howard is following in nephrology consultation. - Transaminitis- improving. cont to monitor - Metastatic prostate carcinoma. - Hypertension. Continue Cozaar. - Diabetes mellitus. Continue Lantus and NovoLog. Continue Lovenox for deep venous thrombosis prophylaxis and Pepcid for peptic ulcer disease prophylaxis. Further recommendations based on clinical course. Plan of care discussed with Dr. Gregory. Subjective 24 Hr Interval Summary Free Text/Dictation Family want to talk to Dr Sinclair regarding hospice/dischrging home. afebrile. n val issues reported by staff. Respiratory: no complaints Cardiovascular: no complaints Gastrointestinal: no complaints Exam/Review of Systems Vital Signs Vitals Vital Signs Date Time Temp Pulse Resp B/P Pulse Ox O2 Delivery O2 Flow Rate FiO2 09/09/16 07:18 97.8 68 18 133/63 96 Intake and Output 09/08/16 09/08/16 09/09/16 15:00 23:00 07:00 Intake Total 2220 ml 970 ml Balance 2220 ml 970 ml Exam Constitutional: alert, well developed Respiratory: clear to auscultation, normal air movement Cardiovascular: nl pulses, regular rate and rhythm Gastrointestinal: non-tender, soft Musculoskeletal: nl extremities to inspection Extremities: normal pulses Results Result Diagram: 09/09/16 0430 09/09/16 0430 Results 24 hrs Laboratory Tests Test 09/08/16 17:20 09/08/16 20:34 09/09/16 04:30 09/09/16 07:59 Bedside Glucose 90 112 84 White Blood Count 5.2 Red Blood Count 2.75 L Hemoglobin 7.9 L Hematocrit 25.5 L Mean Corpuscular Volume 92.7 Mean Corpuscular Hemoglobin 28.7 L Mean Corpuscular Hemoglobin Concent 31.0 L Red Cell Distribution Width 20.7 H Platelet Count 128 L Mean Platelet Volume 10.0 Neutrophils % 77.0 Lymphocytes % 14.1 L Monocytes % 5.9 Eosinophils % 1.5 Basophils % 0.2 Nucleated Red Blood Cells % 0.4 H Neutrophils # 4.0 Lymphocytes # 0.7 L Monocytes # 0.3 Eosinophils # 0.1 Basophils # 0.0 Nucleated Red Blood Cells # 0.0 Sodium Level 139 Potassium Level 3.8 Chloride Level 108 Carbon Dioxide Level 22 Anion Gap 13 # Blood Urea Nitrogen 14 Creatinine 0.40 L Glucose Level 105 Calcium Level 7.2 L Total Bilirubin 0.1 L Direct Bilirubin 0.00 Indirect Bilirubin 0.1 Aspartate Amino Transf (AST/SGOT) 33 Alanine Aminotransferase (ALT/SGPT) 37 Alkaline Phosphatase 693 H Total Protein 4.0 L Albumin 2.0 L Globulin 2.00 Albumin/Globulin Ratio 1.00 Test 09/09/16 11:59 Bedside Glucose 154 Medications Medications Current Medications Sodium Chloride (NS) 1,000 ml @ 40 mls/hr Q24H IV Last administered on 16:14; Admin Dose 40 MLS/HR; Start 09/02/16 at 20:36 Ondansetron HCl (Zofran Inj) 4 mg Q6H PRN IV NAUSEA AND/OR VOMITING; Start at 21:00 Acetaminophen (Tylenol Tab) 650 mg Q6H PRN PO PAIN LEVEL 1-3 OR FEVER; Start at 21:00 Morphine Sulfate (morphine) 2 mg Q4H PRN IV PAIN LEVEL 7-10; Start 09/02/16 at 21:00 Enoxaparin Sodium (Lovenox) 30 mg DAILY SC Last administered on 09/09/16 08:51 ; Admin Dose 30 MG; Start 09/03/16 at 09:00 Aspirin (Halfprin) 81 mg DAILY PO Last administered on 09/09/16 08:52; Admin Dose 81 MG; Start 09/04/16 at 09:00 Docusate Sodium (Colace) 100 mg DAILY PO Last administered on 09/09/16 08:53; Admin Dose 100 MG; Start 09/04/16 at 09:00 Losartan Potassium (Cozaar) 100 mg DAILY PO Last administered on 09/09/16 08:54 ; Admin Dose 100 MG; Start 09/04/16 at 09:00 Tamsulosin HCl (Flomax) 0.4 mg DAILY PO Last administered on 09/09/16 08:52; Admin Dose 0.4 MG; Start 09/04/16 at 09:00 Atorvastatin Calcium (Lipitor) 10 mg QHS PO Last administered on 09/08/16 20:38 ; Admin Dose 10 MG; Start 09/03/16 at 21:00 Hydralazine HCl (Apresoline) 10 mg Q6H PRN IV SBP>170; Start 09/03/16 at 14:30 Nystatin (Nystatin Cr) 1 applic BID TOP Last administered on 09/09/16 08:54; Admin Dose 1 APPLIC; Start 09/03/16 at 21:00 Miscellaneous Information 1 ea NOTE XX ; Start 09/03/16 at 15:00 Glucose (Glutose) 15 gm Q15M PRN PO DECREASED GLUCOSE; Start 09/03/16 at 15:00 Glucose (Glutose) 22.5 gm Q15M PRN PO DECREASED GLUCOSE; Start 09/03/16 at 15: 00 Dextrose (D50w Syringe) 25 ml Q15M PRN IV DECREASED GLUCOSE; Start 09/03/16 at 15:00 Dextrose (D50w Syringe) 50 ml Q15M PRN IV DECREASED GLUCOSE; Start 09/03/16 at 15:00 Glucagon (Glucagen) 1 mg Q15M PRN IM DECREASED GLUCOSE; Start 09/03/16 at 15:00 Glucose (Glutose) 15 gm Q15M PRN BUCCAL DECREASED GLUCOSE; Start 09/03/16 at 15 :00 Amiodarone HCl (Cordarone) 200 mg DAILY PO Last administered on 09/09/16 08:53 ; Admin Dose 200 MG; Start 09/04/16 at 09:00 Hydralazine HCl (Apresoline) 25 mg BID PO Last administered on 09/09/16 08:52; Admin Dose 25 MG; Start 09/04/16 at 09:00 Metoprolol Tartrate (Lopressor) 12.5 mg BID PO Last administered on 09/09/16 08 :53; Admin Dose 12.5 MG; Start 09/04/16 at 09:00 Pantoprazole (Protonix Tab) 40 mg DAILY@06 PO Last administered on 09/09/16 05: 52; Admin Dose 40 MG; Start 09/04/16 at 06:00 Sodium Chloride (Nacl) 1 gm TID PO Last administered on 09/09/16 12:35; Admin Dose 1 GM; Start 09/04/16 at 09:00 Ascorbic Acid (Vitamin C) 500 mg BID PO Last administered on 09/09/16 08:52; Admin Dose 500 MG; Start 09/04/16 at 09:00 Lactobacillus Acidophilus/ Rhamnosus (Culturelle) 1 cap DAILY PO Last administered on 09/09/16 08:52; Admin Dose 1 CAP; Start 09/04/16 at 09:00 Zinc Sulfate (Zinc Sulfate) 220 mg DAILY PO Last administered on 09/09/16 08:52 ; Admin Dose 220 MG; Start 09/04/16 at 09:00; Stop 09/17/16 at 10:00 Multivitamins/ Minerals (Theragran-M) 1 tab DAILY PO Last administered on 08:52; Admin Dose 1 TAB; Start 09/04/16 at 09:00 Diagnostic Test (Pha) (Accu-Chek) 1 ea 02 XX Last administered on 09/04/16 01: 20; Admin Dose 1 EA; Start 09/04/16 at 02:00 Mupirocin 1 applic 1 applic BID TOP Last administered on 09/09/16 08:54; Admin Dose 1 APPLIC; Start 09/06/16 at 21:00; Stop 09/13/16 at 09:01 Caspofungin/ Sodium Chloride (Cancidas/NS) 250 ml @ 250 mls/hr Q24H IV Last administered on 09/09/16 15:57; Admin Dose 250 MLS/HR; Start 09/07/16 at 15:30 Insulin Glargine 8 unit 8 unit QHS SC Last administered on 09/08/16 20:36; Admin Dose 8 UNIT; Start 09/07/16 at 21:00 Ertapenem 1 gm/ Sodium Chloride 100 ml @ 200 mls/hr Q24H IVPB Last administered on 09/08/16 20:37; Admin Dose 200 MLS/HR; Start 09/07/16 at 20:00 Vancomycin HCl/ Sodium Chloride (Vancocin/NS) 250 ml @ 83.333 mls/ hr Q12H IVPB ; Start 09/09/16 at 16:30 BIBIANA DUKE Sep 09, 2016 16:36
[2016-09-09] MEDS: ATORVASTATIN 10 MG TAB PO SCH (20:07)
[2016-09-09] MEDS: INSULIN GLARGINE [LANtus] 3 ML PEN SC SCH (20:23)
[2016-09-09 21:17] VITALS: BP 125/58; RESP 21
[2016-09-09] MEDS: ERTAPENEM SODIUM 1 GM in SOD CHLORIDE 0.9% 100 ML IVPB SCH (21:23)
[2016-09-09 21:42] VITALS: BP 118/58; PULSE 70
[2016-09-10] MEDS: ACCU-CHEK XX SCH (01:56)
[2016-09-10] MEDS: VANCOMYCIN 1.5 GM in SOD CHLORIDE 0.9% 250 ML IVPB SCH ×2 (04:04→17:43)
[2016-09-10] MEDS: PANTOPRAZOLE (EC) 40 MG TAB PO SCH (05:31)
[2016-09-10 06:15] LABS: BASOPHILS % 0.2 % (0.0-2.0); EOSINOPHILS # 0.1 10^3/ul (0.0-0.5); EOSINOPHILS % 1.1 % (0.0-7.0); HEMATOCRIT 26.3 % (42.0-52.0); HEMOGLOBIN 8.4 g/dl (14.0-18.0); LYMPHOCYTES # 0.9 10^3/ul (0.8-2.9); LYMPHOCYTES % 16.8 % (15.0-51.0); MEAN CORPUSCULAR HGB CONC 31.9 g/dl (32.0-37.0); MEAN CORPUSCULAR VOLUME 93.9 fl (82.0-101.0); MEAN PLATELET VOLUME 9.7 fl (7.4-10.4); MONOCYTE # 0.3 10^3/ul (0.3-0.9); MONOCYTES % 6.1 % (0.0-11.0); NEUTROPHIL # 4.1 10^3/ul (1.6-7.5); NEUTROPHILS % 73.1 % (39.0-77.0); NUCLEATED RED BLOOD CELLS% 0.7 /100WBC (0.0-0.0); PLATELET COUNT 130 10^3/UL (140-415); RED CELL DISTRIBUTION WIDTH 20.4 % (11.5-14.5); WHITE BLOOD COUNT 5.6 10^3/ul (4.8-10.8)
[2016-09-10] MEDS: INSULIN ASPART [NOVOLOG] 3 ML PEN SC SCH ×10 (08:00→21:20)
[2016-09-10 08:14] LABS: CALCIUM 7.2 mg/dl (8.4-10.2); CREATININE 0.36 mg/dl (0.61-1.24); POTASSIUM 3.7 mmol/L (3.5-5.1)
[2016-09-10 08:21] VITALS: BP 128/59; RESP 18
[2016-09-10] MEDS ORDERED: INSULIN ASPART [NOVOLOG] 3 ML PEN SC SCH (08:39)
[2016-09-10] MEDS: ZINC SULFATE 220 MG CAP PO SCH (09:38)
[2016-09-10] MEDS: ENOXAPARIN 30 MG/0.3 ML SYG SC SCH (09:38)
[2016-09-10] MEDS: DOCUSATE SODIUM 100 MG CAP PO SCH (09:38)
[2016-09-10] MEDS: LACTOBACILLUS RHAMNOSUS CAP PO SCH (09:38)
[2016-09-10] MEDS: MULTIVITAMINS/MINERALS TAB PO SCH (09:38)
[2016-09-10] MEDS: ASCORBIC ACID 500 MG TAB PO SCH ×2 (09:39→21:06)
[2016-09-10] MEDS: ASPIRIN (EC) 81 MG TAB PO SCH (09:39)
[2016-09-10] MEDS: LOSARTAN 50 MG TAB PO SCH (09:40)
[2016-09-10] MEDS: AMIODARONE 200 MG TAB PO SCH (09:41)
[2016-09-10] MEDS: METOPROLOL 25 MG TAB PO SCH ×2 (09:42→21:07)
[2016-09-10] MEDS: MUPIROCIN 2% 22 GM OINT TOP SCH ×2 (09:43→21:16)
[2016-09-10] MEDS: NYSTATIN 15 GM CR TOP SCH ×2 (09:44→21:16)
[2016-09-10] MEDS: BALSAM PERU/CASTOR OIL 60 GM TUBE TOP SCH (09:45)
[2016-09-10] MEDS: SODIUM CHLORIDE 1 GM TAB PO SCH ×3 (09:54→21:06)
[2016-09-10] MEDS: TAMSULOSIN (SR) 0.4 MG CAP PO SCH (09:54)
[2016-09-10] MEDS: SOD CHLORIDE 0.9% 1,000 ML IV SCH (12:14)
--- NOTE | 2016-09-10 13:01 | PN ---
Date/Time of Note Date/Time of Note DATE: 09/10/16 TIME: 12:57 Assessment/Plan VTE Prophylaxis VTE Prophylaxis Intervention: SCD's Lines/Catheters [facility] C[facility] Type (from [facility] Peripheral IV Urinary Cath still in place: No Assessment/Plan Chief Complaint/Hosp Course Patient remains afebrile, looks comfortable, mild hypoglycemia, will decrease Lantus and pre-meal NovoLog. ASSESSMENT AND PLAN: - Polymicrobial urinary tract infection, including E. coli ESBL, Dr. Rodrigues is following infection disease consultation. Continue antibiotics per ID. - Possible sepsis secondary to urinary tract infection with leukocytosis and encephalopathy, resolving. - Severe hyponatremia,resolved. Dr. Howard is following in nephrology consultation. - Metastatic prostate carcinoma. Dr. Sinclair is following in oncology consultation. - Hypertension. Continue Cozaar. - Diabetes mellitus. Continue Lantus and NovoLog. Continue Lovenox for deep venous thrombosis prophylaxis and Pepcid for peptic ulcer disease prophylaxis. Further recommendations based on clinical course. Plan of care discussed with Dr. Gregory. Problems: Exam/Review of Systems Vital Signs Vitals Vital Signs Date Time Temp Pulse Resp B/P Pulse Ox O2 Delivery O2 Flow Rate FiO2 09/10/16 08:21 97.2 66 18 128/59 95 Intake and Output 09/09/16 09/09/16 09/10/16 15:00 23:00 07:00 Intake Total 1850 ml 660 ml Balance 1850 ml 660 ml Exam Constitutional: alert Head: atraumatic, normocephalic Neck: supple Respiratory: normal air movement Cardiovascular: nl pulses Gastrointestinal: non-tender, soft Genitourinary - Male: other Musculoskeletal: muscle weakness Extremities: normal pulses Results Result Diagram: 09/10/16 0425 09/10/16 0500 Results 24 hrs Laboratory Tests Test 09/09/16 15:39 09/09/16 17:16 09/09/16 20:21 09/10/16 01:48 Vancomycin Level Trough 9.0 L Bedside Glucose 117 108 48 *L Test 09/10/16 02:09 09/10/16 02:28 09/10/16 04:25 09/10/16 05:00 Bedside Glucose 143 112 White Blood Count 5.6 Red Blood Count 2.80 L Hemoglobin 8.4 L Hematocrit 26.3 L Mean Corpuscular Volume 93.9 Mean Corpuscular Hemoglobin 30.0 Mean Corpuscular Hemoglobin Concent 31.9 L Red Cell Distribution Width 20.4 H Platelet Count 130 L Mean Platelet Volume 9.7 Neutrophils % 73.1 Lymphocytes % 16.8 Monocytes % 6.1 Eosinophils % 1.1 Basophils % 0.2 Nucleated Red Blood Cells % 0.7 H Neutrophils # 4.1 Lymphocytes # 0.9 Monocytes # 0.3 Eosinophils # 0.1 Basophils # 0.0 Nucleated Red Blood Cells # 0.0 Sodium Level 140 Potassium Level 3.7 Chloride Level 109 Carbon Dioxide Level 21 Anion Gap 14 Blood Urea Nitrogen 14 Creatinine 0.36 L Glucose Level 60 #L Calcium Level 7.2 L Test 09/10/16 08:20 09/10/16 12:17 09/10/16 12:38 Bedside Glucose 81 61 L 67 L Medications Medications Current Medications Sodium Chloride (NS) 1,000 ml @ 40 mls/hr Q24H IV Last administered on 12:14; Admin Dose 40 MLS/HR; Start 09/02/16 at 20:36 Ondansetron HCl (Zofran Inj) 4 mg Q6H PRN IV NAUSEA AND/OR VOMITING; Start at 21:00 Acetaminophen (Tylenol Tab) 650 mg Q6H PRN PO PAIN LEVEL 1-3 OR FEVER; Start at 21:00 Morphine Sulfate (morphine) 2 mg Q4H PRN IV PAIN LEVEL 7-10; Start 09/02/16 at 21:00 Enoxaparin Sodium (Lovenox) 30 mg DAILY SC Last administered on 09/10/16 09:38 ; Admin Dose 30 MG; Start 09/03/16 at 09:00 Aspirin (Halfprin) 81 mg DAILY PO Last administered on 09/10/16 09:39; Admin Dose 81 MG; Start 09/04/16 at 09:00 Docusate Sodium (Colace) 100 mg DAILY PO Last administered on 09/10/16 09:38; Admin Dose 100 MG; Start 09/04/16 at 09:00 Losartan Potassium (Cozaar) 100 mg DAILY PO Last administered on 09/10/16 09:40 ; Admin Dose 100 MG; Start 09/04/16 at 09:00 Tamsulosin HCl (Flomax) 0.4 mg DAILY PO Last administered on 09/10/16 09:54; Admin Dose 0.4 MG; Start 09/04/16 at 09:00 Atorvastatin Calcium (Lipitor) 10 mg QHS PO Last administered on 09/09/16 20:07 ; Admin Dose 10 MG; Start 09/03/16 at 21:00 Hydralazine HCl (Apresoline) 10 mg Q6H PRN IV SBP>170; Start 09/03/16 at 14:30 Nystatin (Nystatin Cr) 1 applic BID TOP Last administered on 09/10/16 09:44; Admin Dose 1 APPLIC; Start 09/03/16 at 21:00 Miscellaneous Information 1 ea NOTE XX ; Start 09/03/16 at 15:00 Glucose (Glutose) 15 gm Q15M PRN PO DECREASED GLUCOSE; Start 09/03/16 at 15:00 Glucose (Glutose) 22.5 gm Q15M PRN PO DECREASED GLUCOSE; Start 09/03/16 at 15: 00 Dextrose (D50w Syringe) 25 ml Q15M PRN IV DECREASED GLUCOSE; Start 09/03/16 at 15:00 Dextrose (D50w Syringe) 50 ml Q15M PRN IV DECREASED GLUCOSE Last administered on 09/10/16 01:51; Admin Dose 50 ML; Start 09/03/16 at 15:00 Glucagon (Glucagen) 1 mg Q15M PRN IM DECREASED GLUCOSE; Start 09/03/16 at 15:00 Glucose (Glutose) 15 gm Q15M PRN BUCCAL DECREASED GLUCOSE; Start 09/03/16 at 15 :00 Amiodarone HCl (Cordarone) 200 mg DAILY PO Last administered on 09/10/16 09:41 ; Admin Dose 200 MG; Start 09/04/16 at 09:00 Hydralazine HCl (Apresoline) 25 mg BID PO Last administered on 09/10/16 09:41; Admin Dose 25 MG; Start 09/04/16 at 09:00 Metoprolol Tartrate (Lopressor) 12.5 mg BID PO Last administered on 09/10/16 09 :42; Admin Dose 12.5 MG; Start 09/04/16 at 09:00 Pantoprazole (Protonix Tab) 40 mg DAILY@06 PO Last administered on 09/10/16 05: 31; Admin Dose 40 MG; Start 09/04/16 at 06:00 Sodium Chloride (Nacl) 1 gm TID PO Last administered on 09/10/16 12:33; Admin Dose 1 GM; Start 09/04/16 at 09:00 Ascorbic Acid (Vitamin C) 500 mg BID PO Last administered on 09/10/16 09:39; Admin Dose 500 MG; Start 09/04/16 at 09:00 Lactobacillus Acidophilus/ Rhamnosus (Culturelle) 1 cap DAILY PO Last administered on 09/10/16 09:38; Admin Dose 1 CAP; Start 09/04/16 at 09:00 Zinc Sulfate (Zinc Sulfate) 220 mg DAILY PO Last administered on 09/10/16 09:38 ; Admin Dose 220 MG; Start 09/04/16 at 09:00; Stop 09/17/16 at 10:00 Multivitamins/ Minerals (Theragran-M) 1 tab DAILY PO Last administered on 09:38; Admin Dose 1 TAB; Start 09/04/16 at 09:00 Diagnostic Test (Pha) (Accu-Chek) 1 ea 02 XX Last administered on 09/10/16 01: 56; Admin Dose 1 EA; Start 09/04/16 at 02:00 Mupirocin 1 applic 1 applic BID TOP Last administered on 09/10/16 09:43; Admin Dose 1 APPLIC; Start 09/06/16 at 21:00; Stop 09/13/16 at 09:01 Caspofungin/ Sodium Chloride (Cancidas/NS) 250 ml @ 250 mls/hr Q24H IV Last administered on 09/09/16 15:57; Admin Dose 250 MLS/HR; Start 09/07/16 at 15:30 Insulin Glargine 8 unit 8 unit QHS SC Last administered on 09/09/16 20:23; Admin Dose 8 UNIT; Start 09/07/16 at 21:00 Ertapenem 1 gm/ Sodium Chloride 100 ml @ 200 mls/hr Q24H IVPB Last administered on 09/09/16 21:23; Admin Dose 200 MLS/HR; Start 09/07/16 at 20:00 Vancomycin HCl/ Sodium Chloride (Vancocin/NS) 250 ml @ 83.333 mls/ hr Q12H IVPB Last administered on 7/3/17at 04:04; Admin Dose 83.333 MLS/HR; Start at 04:00 Diagnostic Test (Pha) (Accu-Chek) 1 ea 02 XX ; Start 09/11/16 at 02:00 ROBERT CORRALES Sep 10, 2016 13:01
[2016-09-10] MEDS: CASPOFUNGIN 35 MG in SOD CHLORIDE 0.9% 250 ML IV SCH (16:19)
--- NOTE | 2016-09-10 19:03 | CONS ---
Date/Time of Note Date/Time of Note DATE: 09/10/16 TIME: 19:02 Assessment/Plan Assessment/Plan Additional Assessment/Plan 1. Severe hyponatremia with sodium 116 on admission, likely secondary to a combination of syndrome of inappropriate antidiuretic hormone and hypovolemic hyponatremia. 2. Acute metabolic encephalopathy from severe hyponatremia and urinary tract infection. 3. Urinary tract infection. 4. 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 Required tolvaptan on last admission. 5. History of metastatic prostate cancer. 6. History of hypertension. 7. History of hyperlipidemia. 8. History of bilateral knee arthritis. 9. Acute hyperkalemia secondary to possible prerenal azotemia, resolved. 10. Hypocalcemia Ca 7.2, alb 2.0, corrected Ca is 8.8 PLAN: S/p 3 % saline, Corrected Ca is 8.8 IV a bx meropenem Cr normal, will james maki family awaits oncology opinion before deciding for hospice care Consultation Date/Type/Reason Admit Date/Time Sep 03, 2016 at 07:04 Type of Consultation: NEPHROLOGY Referring Provider: CHANELLE PAUL MD Exam/Review of Systems Vital Signs Vitals Vital Signs Date Time Temp Pulse Resp B/P Pulse Ox O2 Delivery O2 Flow Rate FiO2 09/10/16 08:21 97.2 66 18 128/59 95 Intake and Output 09/09/16 09/09/16 09/10/16 15:00 23:00 07:00 Intake Total 1850 ml 660 ml Balance 1850 ml 660 ml Exam GENERAL: Awake, alert, not oriented to place, person, and time. HEENT: Pupils equal and round, reactive to light and accommodation. Extraocular muscles are intact. NECK: Supple. No JVD, no lymphadenopathy. LUNGS: Clear to auscultation. No crackles or wheezes. HEART: S1, S2 with regular rhythm. No murmur. ABDOMEN: Soft, nontender, nondistended. Bowel sounds are present. EXTREMITIES: No clubbing, cyanosis, edema. NEUROLOGICAL: Uncooperative for exam. Results Result Diagram: 09/10/16 0422 09/10/16 0500 Results 24 hrs Laboratory Tests Test 09/09/16 20:21 09/10/16 01:48 09/10/16 02:09 09/10/16 02:28 Bedside Glucose 108 48 *L 143 112 Test 09/10/16 04:25 09/10/16 05:00 09/10/16 08:20 09/10/16 12:17 White Blood Count 5.6 Red Blood Count 2.80 L Hemoglobin 8.4 L Hematocrit 26.3 L Mean Corpuscular Volume 93.9 Mean Corpuscular Hemoglobin 30.0 Mean Corpuscular Hemoglobin Concent 31.9 L Red Cell Distribution Width 20.4 H Platelet Count 130 L Mean Platelet Volume 9.7 Neutrophils % 73.1 Lymphocytes % 16.8 Monocytes % 6.1 Eosinophils % 1.1 Basophils % 0.2 Nucleated Red Blood Cells % 0.7 H Neutrophils # 4.1 Lymphocytes # 0.9 Monocytes # 0.3 Eosinophils # 0.1 Basophils # 0.0 Nucleated Red Blood Cells # 0.0 Sodium Level 140 Potassium Level 3.7 Chloride Level 109 Carbon Dioxide Level 21 Anion Gap 14 Blood Urea Nitrogen 14 Creatinine 0.36 L Glucose Level 60 #L Calcium Level 7.2 L Bedside Glucose 81 61 L Test 09/10/16 12:38 09/10/16 13:10 09/10/16 13:45 09/10/16 17:28 Bedside Glucose 67 L 98 104 121 Medications Medications Current Medications Sodium Chloride (NS) 1,000 ml @ 40 mls/hr Q24H IV Last administered on 12:14; Admin Dose 40 MLS/HR; Start 09/02/16 at 20:36 Ondansetron HCl (Zofran Inj) 4 mg Q6H PRN IV NAUSEA AND/OR VOMITING; Start at 21:00 Acetaminophen (Tylenol Tab) 650 mg Q6H PRN PO PAIN LEVEL 1-3 OR FEVER; Start at 21:00 Morphine Sulfate (morphine) 2 mg Q4H PRN IV PAIN LEVEL 7-10; Start 09/02/16 at 21:00 Enoxaparin Sodium (Lovenox) 30 mg DAILY SC Last administered on 09/10/16 09:38 ; Admin Dose 30 MG; Start 09/03/16 at 09:00 Aspirin (Halfprin) 81 mg DAILY PO Last administered on 09/10/16 09:39; Admin Dose 81 MG; Start 09/04/16 at 09:00 Docusate Sodium (Colace) 100 mg DAILY PO Last administered on 09/10/16 09:38; Admin Dose 100 MG; Start 09/04/16 at 09:00 Losartan Potassium (Cozaar) 100 mg DAILY PO Last administered on 09/10/16 09:40 ; Admin Dose 100 MG; Start 09/04/16 at 09:00 Tamsulosin HCl (Flomax) 0.4 mg DAILY PO Last administered on 09/10/16 09:54; Admin Dose 0.4 MG; Start 09/04/16 at 09:00 Atorvastatin Calcium (Lipitor) 10 mg QHS PO Last administered on 09/09/16 20:07 ; Admin Dose 10 MG; Start 09/03/16 at 21:00 Hydralazine HCl (Apresoline) 10 mg Q6H PRN IV SBP>170; Start 09/03/16 at 14:30 Nystatin (Nystatin Cr) 1 applic BID TOP Last administered on 09/10/16 09:44; Admin Dose 1 APPLIC; Start 09/03/16 at 21:00 Miscellaneous Information 1 ea NOTE XX ; Start 09/03/16 at 15:00 Glucose (Glutose) 15 gm Q15M PRN PO DECREASED GLUCOSE; Start 09/03/16 at 15:00 Glucose (Glutose) 22.5 gm Q15M PRN PO DECREASED GLUCOSE; Start 09/03/16 at 15: 00 Dextrose (D50w Syringe) 25 ml Q15M PRN IV DECREASED GLUCOSE; Start 09/03/16 at 15:00 Dextrose (D50w Syringe) 50 ml Q15M PRN IV DECREASED GLUCOSE Last administered on 09/10/16 01:51; Admin Dose 50 ML; Start 09/03/16 at 15:00 Glucagon (Glucagen) 1 mg Q15M PRN IM DECREASED GLUCOSE; Start 09/03/16 at 15:00 Glucose (Glutose) 15 gm Q15M PRN BUCCAL DECREASED GLUCOSE; Start 09/03/16 at 15 :00 Amiodarone HCl (Cordarone) 200 mg DAILY PO Last administered on 09/10/16 09:41 ; Admin Dose 200 MG; Start 09/04/16 at 09:00 Hydralazine HCl (Apresoline) 25 mg BID PO Last administered on 09/10/16 09:41; Admin Dose 25 MG; Start 09/04/16 at 09:00 Metoprolol Tartrate (Lopressor) 12.5 mg BID PO Last administered on 09/10/16 09 :42; Admin Dose 12.5 MG; Start 09/04/16 at 09:00 Pantoprazole (Protonix Tab) 40 mg DAILY@06 PO Last administered on 09/10/16 05: 31; Admin Dose 40 MG; Start 09/04/16 at 06:00 Sodium Chloride (Nacl) 1 gm TID PO Last administered on 09/10/16 12:33; Admin Dose 1 GM; Start 09/04/16 at 09:00 Ascorbic Acid (Vitamin C) 500 mg BID PO Last administered on 09/10/16 09:39; Admin Dose 500 MG; Start 09/04/16 at 09:00 Lactobacillus Acidophilus/ Rhamnosus (Culturelle) 1 cap DAILY PO Last administered on 09/10/16 09:38; Admin Dose 1 CAP; Start 09/04/16 at 09:00 Zinc Sulfate (Zinc Sulfate) 220 mg DAILY PO Last administered on 09/10/16 09:38 ; Admin Dose 220 MG; Start 09/04/16 at 09:00; Stop 09/17/16 at 10:00 Multivitamins/ Minerals (Theragran-M) 1 tab DAILY PO Last administered on 09:38; Admin Dose 1 TAB; Start 09/04/16 at 09:00 Diagnostic Test (Pha) (Accu-Chek) 1 ea 02 XX Last administered on 09/10/16 01: 56; Admin Dose 1 EA; Start 09/04/16 at 02:00 Mupirocin 1 applic 1 applic BID TOP Last administered on 09/10/16 09:43; Admin Dose 1 APPLIC; Start 09/06/16 at 21:00; Stop 09/13/16 at 09:01 Caspofungin 35 mg/ Sodium Chloride 250 ml @ 250 mls/hr Q24H IV Last administered on 09/10/16 16:19; Admin Dose 250 MLS/HR; Start 09/07/16 at 15:30 Ertapenem 1 gm/ Sodium Chloride 100 ml @ 200 mls/hr Q24H IVPB Last administered on 09/09/16 21:23; Admin Dose 200 MLS/HR; Start 09/07/16 at 20:00 Vancomycin HCl/ Sodium Chloride (Vancocin/NS) 250 ml @ 83.333 mls/ hr Q12H IVPB Last administered on 09/10/16t 17:43; Admin Dose 83.333 MLS/HR; Start at 04:00 Diagnostic Test (Pha) (Accu-Chek) 1 XX ; Start 09/11/16 at 02:00 Insulin Glargine (Lantus) 6 unit QHS SC ; Start 09/10/16 at 21:00 KARLENE MUÑOZ MD Sep 10, 2016 19:03
[2016-09-10 20:40] VITALS: BP 137/64; RESP 16
[2016-09-10] MEDS: ERTAPENEM SODIUM 1 GM in SOD CHLORIDE 0.9% 100 ML IVPB SCH (20:55)
[2016-09-10] MEDS: ATORVASTATIN 10 MG TAB PO SCH (21:06)
[2016-09-10] MEDS: INSULIN GLARGINE [LANtus] 3 ML PEN SC SCH (21:09)
[2016-09-11] MEDS: ACCU-CHEK XX SCH ×2 (02:00)
[2016-09-11] MEDS: VANCOMYCIN 1.5 GM in SOD CHLORIDE 0.9% 250 ML IVPB SCH ×2 (04:18→16:20)
[2016-09-11] MEDS: PANTOPRAZOLE (EC) 40 MG TAB PO SCH (06:01)
[2016-09-11 07:58] VITALS: BP 127/61; RESP 16
[2016-09-11] MEDS: INSULIN ASPART [NOVOLOG] 3 ML PEN SC SCH ×8 (08:00→20:37)
[2016-09-11 08:13] LABS: ADD SCAN DIFF NO
[2016-09-11 08:28] LABS: BASOPHILS % 0.4 % (0.0-2.0); EOSINOPHILS # 0.1 10^3/ul (0.0-0.5); EOSINOPHILS % 1.6 % (0.0-7.0); HEMATOCRIT 27.9 % (42.0-52.0); HEMOGLOBIN 8.9 g/dl (14.0-18.0); LYMPHOCYTES # 1.2 10^3/ul (0.8-2.9); LYMPHOCYTES % 21.6 % (15.0-51.0); MEAN CORPUSCULAR HEMOGLOBIN 30.1 pg (29.0-33.0); MEAN CORPUSCULAR HGB CONC 31.9 g/dl (32.0-37.0); MEAN CORPUSCULAR VOLUME 94.3 fl (82.0-101.0); MEAN PLATELET VOLUME 10.2 fl (7.4-10.4); MONOCYTE # 0.3 10^3/ul (0.3-0.9); MONOCYTES % 5.8 % (0.0-11.0); NEUTROPHIL # 3.9 10^3/ul (1.6-7.5); NEUTROPHILS % 68.5 % (39.0-77.0); NUCLEATED RED BLOOD CELLS # 0.1 10^3/ul (0.0-0.0); NUCLEATED RED BLOOD CELLS% 0.9 /100WBC (0.0-0.0); PLATELET COUNT 155 10^3/UL (140-415); RED BLOOD COUNT 2.96 10^6/ul (4.70-6.10); RED CELL DISTRIBUTION WIDTH 20.8 % (11.5-14.5); WHITE BLOOD COUNT 5.7 10^3/ul (4.8-10.8)
--- NOTE | 2016-09-11 09:12 | PN ---
Date/Time of Note Date/Time of Note DATE: 09/11/16 TIME: 08:34 Assessment/Plan VTE Prophylaxis VTE Prophylaxis Intervention: SCD's Lines/Catheters IV Catheter Type (from [facility]): Peripheral IV Urinary Cath still in place: No Assessment/Plan Assessment/Plan - Possible shingles rash on lower back - PER ID - airborne precautions - Edema/pain BLE - Venous Doppler BLE - fu. - Polymicrobial urinary tract infection, including E. coli ESBL, Dr. Rodrigues is following infection disease consultation. Continue antibiotics per ID. - Possible sepsis secondary to urinary tract infection with leukocytosis and encephalopathy, resolving. - Severe hyponatremia,resolved. Dr. Howard is following in nephrology consultation. - Metastatic prostate carcinoma. Dr. Sinclair is following in oncology consultation. - Hypertension. Continue Cozaar. - Diabetes mellitus. Continue Lantus and NovoLog. Continue Lovenox for deep venous thrombosis prophylaxis and Pepcid for peptic ulcer disease prophylaxis. Further recommendations based on clinical course. Plan of care discussed with Dr. Gregory. Subjective 24 Hr Interval Summary Free Text/Dictation sitting up in bed, afebrile, bs stable, Lowe back rashes- multiple open blisters. possible shingles- will do airborne precautions and staff to notify ID. family at bed side- all Qs answered. Hospice plan in process, manager social responsibility on case- inhouse hospice ve=s outside. dw staff. Respiratory: no complaints Cardiovascular: no complaints Gastrointestinal: no complaints Skin: pruritis Exam/Review of Systems Vital Signs Vitals Vital Signs Date Time Temp Pulse Resp B/P Pulse Ox O2 Delivery O2 Flow Rate FiO2 09/11/16 07:58 97.4 72 16 127/61 92 Intake and Output 09/10/16 09/10/16 09/11/16 15:00 23:00 07:00 Intake Total 1380 ml 930 ml Balance 1380 ml 930 ml Exam Constitutional: alert, well developed Respiratory: clear to auscultation, normal air movement Cardiovascular: nl pulses, regular rate and rhythm Gastrointestinal: non-tender, soft Extremities: edema Neurological: confused, nl speech Skin: rash or lesions Results Result Diagram: 09/10/16 0425 09/10/16 0500 Results 24 hrs Laboratory Tests Test 09/10/16 12:17 09/10/16 12:38 09/10/16 13:10 09/10/16 13:45 Bedside Glucose 61 L 67 L 98 104 Test 09/10/16 17:28 09/10/16 21:03 09/11/16 02:26 09/11/16 08:07 Bedside Glucose 121 167 104 114 Medications Medications Current Medications Sodium Chloride (NS) 1,000 ml @ 40 mls/hr Q24H IV Last administered on 12:14; Admin Dose 40 MLS/HR; Start 09/02/16 at 20:36 Ondansetron HCl (Zofran Inj) 4 mg Q6H PRN IV NAUSEA AND/OR VOMITING; Start at 21:00 Acetaminophen (Tylenol Tab) 650 mg Q6H PRN PO PAIN LEVEL 1-3 OR FEVER; Start at 21:00 Morphine Sulfate (morphine) 2 mg Q4H PRN IV PAIN LEVEL 7-10; Start 09/02/16 at 21:00 Enoxaparin Sodium (Lovenox) 30 mg DAILY SC Last administered on 09/10/16 09:38 ; Admin Dose 30 MG; Start 09/03/16 at 09:00 Aspirin (Halfprin) 81 mg DAILY PO Last administered on 09/10/16 09:39; Admin Dose 81 MG; Start 09/04/16 at 09:00 Docusate Sodium (Colace) 100 mg DAILY PO Last administered on 09/10/16 09:38; Admin Dose 100 MG; Start 09/04/16 at 09:00 Losartan Potassium (Cozaar) 100 mg DAILY PO Last administered on 09/10/16 09:40 ; Admin Dose 100 MG; Start 09/04/16 at 09:00 Tamsulosin HCl (Flomax) 0.4 mg DAILY PO Last administered on 09/10/16 09:54; Admin Dose 0.4 MG; Start 09/04/16 at 09:00 Atorvastatin Calcium (Lipitor) 10 mg QHS PO Last administered on 09/10/16 21:06 ; Admin Dose 10 MG; Start 09/03/16 at 21:00 Hydralazine HCl (Apresoline) 10 mg Q6H PRN IV SBP>170; Start 09/03/16 at 14:30 Nystatin (Nystatin Cr) 1 applic BID TOP Last administered on 09/10/16 21:16; Admin Dose 1 APPLIC; Start 09/03/16 at 21:00 Miscellaneous Information 1 ea NOTE XX ; Start 09/03/16 at 15:00 Glucose (Glutose) 15 gm Q15M PRN PO DECREASED GLUCOSE; Start 09/03/16 at 15:00 Glucose (Glutose) 22.5 gm Q15M PRN PO DECREASED GLUCOSE; Start 09/03/16 at 15: 00 Dextrose (D50w Syringe) 25 ml Q15M PRN IV DECREASED GLUCOSE; Start 09/03/16 at 15:00 Dextrose (D50w Syringe) 50 ml Q15M PRN IV DECREASED GLUCOSE Last administered on 09/10/16 01:51; Admin Dose 50 ML; Start 09/03/16 at 15:00 Glucagon (Glucagen) 1 mg Q15M PRN IM DECREASED GLUCOSE; Start 09/03/16 at 15:00 Glucose (Glutose) 15 gm Q15M PRN BUCCAL DECREASED GLUCOSE; Start 09/03/16 at 15 :00 Amiodarone HCl (Cordarone) 200 mg DAILY PO Last administered on 09/10/16 09:41 ; Admin Dose 200 MG; Start 09/04/16 at 09:00 Hydralazine HCl (Apresoline) 25 mg BID PO Last administered on 09/10/16 21:07; Admin Dose 25 MG; Start 09/04/16 at 09:00 Metoprolol Tartrate (Lopressor) 12.5 mg BID PO Last administered on 09/10/16 21 :07; Admin Dose 12.5 MG; Start 09/04/16 at 09:00 Pantoprazole (Protonix Tab) 40 mg DAILY@06 PO Last administered on 09/11/16 06: 01; Admin Dose 40 MG; Start 09/04/16 at 06:00 Sodium Chloride (Nacl) 1 gm TID PO Last administered on 09/10/16 21:06; Admin Dose 1 GM; Start 09/04/16 at 09:00 Ascorbic Acid (Vitamin C) 500 mg BID PO Last administered on 09/10/16 21:06; Admin Dose 500 MG; Start 09/04/16 at 09:00 Lactobacillus Acidophilus/ Rhamnosus (Culturelle) 1 cap DAILY PO Last administered on 09/10/16 09:38; Admin Dose 1 CAP; Start 09/04/16 at 09:00 Zinc Sulfate (Zinc Sulfate) 220 mg DAILY PO Last administered on 09/10/16 09:38 ; Admin Dose 220 MG; Start 09/04/16 at 09:00; Stop 09/17/16 at 10:00 Multivitamins/ Minerals (Theragran-M) 1 tab DAILY PO Last administered on 09:38; Admin Dose 1 TAB; Start 09/04/16 at 09:00 Diagnostic Test (Pha) (Accu-Chek) 1 ea 02 XX Last administered on 09/10/16 01: 56; Admin Dose 1 EA; Start 09/04/16 at 02:00 Mupirocin 1 applic 1 applic BID TOP Last administered on 09/10/16 21:16; Admin Dose 1 APPLIC; Start 09/06/16 at 21:00; Stop 09/13/16 at 09:01 Caspofungin 35 mg/ Sodium Chloride 250 ml @ 250 mls/hr Q24H IV Last administered on 09/10/16 16:19; Admin Dose 250 MLS/HR; Start 09/07/16 at 15:30 Ertapenem 1 gm/ Sodium Chloride 100 ml @ 200 mls/hr Q24H IVPB Last administered on 09/10/16 20:55; Admin Dose 200 MLS/HR; Start 09/07/16 at 20:00 Vancomycin HCl/ Sodium Chloride (Vancocin/NS) 250 ml @ 83.333 mls/ hr Q12H IVPB Last administered on 09/11/16 04:18; Admin Dose 83.333 MLS/HR; Start at 04:00 Diagnostic Test (Pha) (Accu-Chek) 1 ea 02 XX ; Start 09/11/16 at 02:00 Insulin Glargine (Lantus) 6 unit QHS SC Last administered on 09/10/16 21:09; Admin Dose 6 UNIT; Start 09/10/16 at 21:00 BIBIANA DUKE Sep 11, 2016 08:46
[2016-09-11 09:42] LABS: CALCIUM 7.3 mg/dl (8.4-10.2); CREATININE 0.38 mg/dl (0.61-1.24); POTASSIUM 3.9 mmol/L (3.5-5.1)
[2016-09-11] MEDS: ENOXAPARIN 30 MG/0.3 ML SYG SC SCH (09:59)
[2016-09-11] MEDS: ZINC SULFATE 220 MG CAP PO SCH (10:00)
[2016-09-11] MEDS: ASPIRIN (EC) 81 MG TAB PO SCH (10:01)
[2016-09-11] MEDS: ASCORBIC ACID 500 MG TAB PO SCH ×2 (10:01→20:34)
[2016-09-11] MEDS: AMIODARONE 200 MG TAB PO SCH (10:01)
[2016-09-11] MEDS: LOSARTAN 50 MG TAB PO SCH (10:01)
[2016-09-11] MEDS: LACTOBACILLUS RHAMNOSUS CAP PO SCH (10:01)
[2016-09-11] MEDS: TAMSULOSIN (SR) 0.4 MG CAP PO SCH (10:02)
[2016-09-11] MEDS: MULTIVITAMINS/MINERALS TAB PO SCH (10:02)
[2016-09-11] MEDS: SODIUM CHLORIDE 1 GM TAB PO SCH ×3 (10:02→20:34)
[2016-09-11] MEDS: METOPROLOL 25 MG TAB PO SCH ×2 (10:03→20:41)
[2016-09-11] MEDS: DOCUSATE SODIUM 100 MG CAP PO SCH (10:04)
[2016-09-11] MEDS: BALSAM PERU/CASTOR OIL 60 GM TUBE TOP SCH (10:05)
[2016-09-11] MEDS: MUPIROCIN 2% 22 GM OINT TOP SCH ×2 (10:05→20:40)
[2016-09-11] MEDS: NYSTATIN 15 GM CR TOP SCH ×2 (10:05→20:40)
--- NOTE | 2016-09-11 10:05 | RADRPT ---
PROCEDURE: US DVT. CLINICAL INDICATION: Bilateral lower extremity pain and swelling. TECHNIQUE: Multiple longitudinal and transverse images of the bilateral lower extremity veins were obtained with muñoz scale and color Doppler imaging. 2D grayscale measurements with compression, co daniela Doppler flow, and augmentation was performed. The calf veins were interrogated as well. COMPARISON: 07/18/2016 FINDINGS: The bilateral common femoral, femoral and popliteal veins are normally compressible throughout. Color flow demonstrates normal filling in all of the vessels. Normal venous waveforms are visualized and there is normal response to augmentation. The calf veins are visualized and are unremarkable. IMPRESSION: 1. No evidence of a deep vein thrombosis involving either lower extremity. RPTAT: AA .Roman Srinivasan MD, MD Date Time Electronically viewed and signed by .Roman Srinivasan MD, MD on 09/11/2016 10:04 .M/
[2016-09-11] MEDS: SOD CHLORIDE 0.9% 1,000 ML IV SCH (12:22)
--- NOTE | 2016-09-11 13:43 | CONS ---
Date/Time of Note Date/Time of Note DATE: 09/11/16 TIME: 13:40 Assessment/Plan Assessment/Plan Additional Assessment/Plan 1. Severe hyponatremia with sodium 116 on admission, likely secondary to a combination of syndrome of inappropriate antidiuretic hormone and hypovolemic hyponatremia. 2. Acute metabolic encephalopathy from severe hyponatremia and urinary tract infection. 3. Urinary tract infection. 4. 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 Required tolvaptan on last admission. 5. History of metastatic prostate cancer. 6. History of hypertension. 7. History of hyperlipidemia. 8. History of bilateral knee arthritis. 9. Acute hyperkalemia secondary to possible prerenal azotemia, resolved. 10. Hypocalcemia Ca 7.2, alb 2.0, corrected Ca is 8.8 PLAN: S/p 3 % saline, Corrected ca is normal IV a bx Invanz IVF NS at 40 cc/hr Cr normal, will kwameo wujames family awaits oncology opinion before deciding for hospice care Consultation Date/Type/Reason Admit Date/Time Sep 03, 2016 at 07:04 Type of Consultation: NEPHROLOGY Referring Provider: CHANELLE PAUL MD 24 HR Interval Summary Free Text/Dictation no acute event, cr normal Exam/Review of Systems Vital Signs Vitals Vital Signs Date Time Temp Pulse Resp B/P Pulse Ox O2 Delivery O2 Flow Rate FiO2 09/11/16 07:58 97.4 72 16 127/61 92 Intake and Output 09/10/16 09/10/16 09/11/16 15:00 23:00 07:00 Intake Total 1380 ml 930 ml Balance 1380 ml 930 ml Exam GENERAL: Awake, alert, not oriented to place, person, and time. HEENT: Pupils equal and round, reactive to light and accommodation. Extraocular muscles are intact. NECK: Supple. No JVD, no lymphadenopathy. LUNGS: Clear to auscultation. No crackles or wheezes. HEART: S1, S2 with regular rhythm. No murmur. ABDOMEN: Soft, nontender, nondistended. Bowel sounds are present. EXTREMITIES: No clubbing, cyanosis, edema. NEUROLOGICAL: Uncooperative for exam. Results Result Diagram: 09/11/16 0650 09/11/16 0650 Results 24 hrs Laboratory Tests Test 09/10/16 13:45 09/10/16 17:28 09/10/16 21:03 09/11/16 02:26 Bedside Glucose 104 121 167 104 Test 09/11/16 06:50 09/11/16 08:07 09/11/16 12:07 White Blood Count 5.7 Red Blood Count 2.96 L Hemoglobin 8.9 L Hematocrit 27.9 L Mean Corpuscular Volume 94.3 Mean Corpuscular Hemoglobin 30.1 Mean Corpuscular Hemoglobin Concent 31.9 L Red Cell Distribution Width 20.8 H Platelet Count 155 Mean Platelet Volume 10.2 Neutrophils % 68.5 Lymphocytes % 21.6 Monocytes % 5.8 Eosinophils % 1.6 Basophils % 0.4 Nucleated Red Blood Cells % 0.9 H Neutrophils # 3.9 Lymphocytes # 1.2 Monocytes # 0.3 Eosinophils # 0.1 Basophils # 0.0 Nucleated Red Blood Cells # 0.1 H Sodium Level 141 Potassium Level 3.9 Chloride Level 107 Carbon Dioxide Level 23 Anion Gap 15 Blood Urea Nitrogen 12 Creatinine 0.38 L Glucose Level 104 # Calcium Level 7.3 L Bedside Glucose 114 178 Medications Medications Current Medications Sodium Chloride (NS) 1,000 ml @ 40 mls/hr Q24H IV Last administered on 12:14; Admin Dose 40 MLS/HR; Start 09/02/16 at 20:36 Ondansetron HCl (Zofran Inj) 4 mg Q6H PRN IV NAUSEA AND/OR VOMITING; Start at 21:00 Acetaminophen (Tylenol Tab) 650 mg Q6H PRN PO PAIN LEVEL 1-3 OR FEVER; Start at 21:00 Morphine Sulfate (morphine) 2 mg Q4H PRN IV PAIN LEVEL 7-10; Start 09/02/16 at 21:00 Enoxaparin Sodium (Lovenox) 30 mg DAILY SC Last administered on 09/11/16 09:59 ; Admin Dose 30 MG; Start 09/03/16 at 09:00 Aspirin (Halfprin) 81 mg DAILY PO Last administered on 09/11/16 10:01; Admin Dose 81 MG; Start 09/04/16 at 09:00 Docusate Sodium (Colace) 100 mg DAILY PO Last administered on 09/11/16 10:04; Admin Dose 100 MG; Start 09/04/16 at 09:00 Losartan Potassium (Cozaar) 100 mg DAILY PO Last administered on 09/11/16 10:01 ; Admin Dose 100 MG; Start 09/04/16 at 09:00 Tamsulosin HCl (Flomax) 0.4 mg DAILY PO Last administered on 09/11/16 10:02; Admin Dose 0.4 MG; Start 09/04/16 at 09:00 Atorvastatin Calcium (Lipitor) 10 mg QHS PO Last administered on 09/10/16 21:06 ; Admin Dose 10 MG; Start 09/03/16 at 21:00 Hydralazine HCl (Apresoline) 10 mg Q6H PRN IV SBP>170; Start 09/03/16 at 14:30 Nystatin (Nystatin Cr) 1 applic BID TOP Last administered on 09/11/16 10:05; Admin Dose 1 APPLIC; Start 09/03/16 at 21:00 Miscellaneous Information 1 ea NOTE XX ; Start 09/03/16 at 15:00 Glucose (Glutose) 15 gm Q15M PRN PO DECREASED GLUCOSE; Start 09/03/16 at 15:00 Glucose (Glutose) 22.5 gm Q15M PRN PO DECREASED GLUCOSE; Start 09/03/16 at 15: 00 Dextrose (D50w Syringe) 25 ml Q15M PRN IV DECREASED GLUCOSE; Start 09/03/16 at 15:00 Dextrose (D50w Syringe) 50 ml Q15M PRN IV DECREASED GLUCOSE Last administered on 09/10/16 01:51; Admin Dose 50 ML; Start 09/03/16 at 15:00 Glucagon (Glucagen) 1 mg Q15M PRN IM DECREASED GLUCOSE; Start 09/03/16 at 15:00 Glucose (Glutose) 15 gm Q15M PRN BUCCAL DECREASED GLUCOSE; Start 09/03/16 at 15 :00 Amiodarone HCl (Cordarone) 200 mg DAILY PO Last administered on 09/11/16 10:01 ; Admin Dose 200 MG; Start 09/04/16 at 09:00 Hydralazine HCl (Apresoline) 25 mg BID PO Last administered on 09/11/16 10:02; Admin Dose 25 MG; Start 09/04/16 at 09:00 Metoprolol Tartrate (Lopressor) 12.5 mg BID PO Last administered on 09/11/16 10 :03; Admin Dose 12.5 MG; Start 09/04/16 at 09:00 Pantoprazole (Protonix Tab) 40 mg DAILY@06 PO Last administered on 09/11/16 06: 01; Admin Dose 40 MG; Start 09/04/16 at 06:00 Sodium Chloride (Nacl) 1 gm TID PO Last administered on 09/11/16 12:17; Admin Dose 1 GM; Start 09/04/16 at 09:00 Ascorbic Acid (Vitamin C) 500 mg BID PO Last administered on 09/11/16 10:01; Admin Dose 500 MG; Start 09/04/16 at 09:00 Lactobacillus Acidophilus/ Rhamnosus (Culturelle) 1 cap DAILY PO Last administered on 09/11/16 10:01; Admin Dose 1 CAP; Start 09/04/16 at 09:00 Zinc Sulfate (Zinc Sulfate) 220 mg DAILY PO Last administered on 09/11/16 10:00 ; Admin Dose 220 MG; Start 09/04/16 at 09:00; Stop 09/17/16 at 10:00 Multivitamins/ Minerals (Theragran-M) 1 tab DAILY PO Last administered on 10:02; Admin Dose 1 TAB; Start 09/04/16 at 09:00 Diagnostic Test (Pha) (Accu-Chek) 1 ea 02 XX Last administered on 09/10/16 01: 56; Admin Dose 1 EA; Start 09/04/16 at 02:00 Mupirocin 1 applic 1 applic BID TOP Last administered on 09/11/16 10:05; Admin Dose 1 APPLIC; Start 09/06/16 at 21:00; Stop 09/13/16 at 09:01 Caspofungin 35 mg/ Sodium Chloride 250 ml @ 250 mls/hr Q24H IV Last administered on 09/10/16 16:19; Admin Dose 250 MLS/HR; Start 09/07/16 at 15:30 Ertapenem 1 gm/ Sodium Chloride 100 ml @ 200 mls/hr Q24H IVPB Last administered on 09/10/16 20:55; Admin Dose 200 MLS/HR; Start 09/07/16 at 20:00 Vancomycin HCl/ Sodium Chloride (Vancocin/NS) 250 ml @ 83.333 mls/ hr Q12H IVPB Last administered on 09/11/16 04:18; Admin Dose 83.333 MLS/HR; Start at 04:00 Diagnostic Test (Pha) (Accu-Chek) 1 ea 02 XX ; Start 09/11/16 at 02:00 Insulin Glargine (Lantus) 6 unit QHS SC Last administered on 09/10/16 21:09; Admin Dose 6 UNIT; Start 09/10/16 at 21:00 Miscellaneous Information (*Rx Drug Level Order Reminder*) 1 ONCE ONCE XX ; Start 09/12/16 at 03:00; Stop 09/12/16 at 03:01 KARLENE MUÑOZ MD Sep 11, 2016 13:42
--- NOTE | 2016-09-11 14:14 | CONS ---
Date/Time of Note Date/Time of Note DATE: 09/11/16 TIME: 14:11 Assessment/Plan Assessment/Plan Chief Complaint/Hosp Course No acute events overnight. Patient is awake. Looks comfortable, no fevers WBC 5.7, no shift no balance. BUN 12, creatinine 0.38 Antimicrobials: Cancidas Peterson Villalobos infectious disease Microbiology: Urine culture growing MRSA, enterococcus species, Xochilt albicans , E. coli ESBL Physical examination: Obese, well-developed elderly man who is in no distress Head atraumatic normocephalic, sclera nonicteric, bugle mucosa dry. Neck is supple, trachea midline Chest rise symmetrical, breath sounds clear Abdomen soft, bowel tones present Skin with lesions on the sacral area Extremities without cyanosis edema. Assessment: 1. Polymicrobial UTI 2. Resolving encephalopathy and leukocytosis 3. Metastatic prostate CA 4. Diabetes 5. Hypertension 6. Sacral area skin lesions questionable shingles Plan: Remains stable, will add acyclovir empirically, continue antibiotics, anticipate discharge on oral Bactrim Discussed with staff Problems: Consultation Date/Type/Reason Admit Date/Time Sep 03, 2016 at 07:04 Type of Consultation: ID Referring Provider: CHANELLE PAUL MD Exam/Review of Systems Vital Signs Vitals Vital Signs Date Time Temp Pulse Resp B/P Pulse Ox O2 Delivery O2 Flow Rate FiO2 09/11/16 07:58 97.4 72 16 127/61 92 Intake and Output 09/10/16 09/10/16 09/11/16 15:00 23:00 07:00 Intake Total 1380 ml 930 ml Balance 1380 ml 930 ml Results Result Diagram: 09/11/16 0650 09/11/16 0650 Results 24 hrs Laboratory Tests Test 09/10/16 17:28 09/10/16 21:03 09/11/16 02:26 09/11/16 06:50 Bedside Glucose 121 167 104 White Blood Count 5.7 Red Blood Count 2.96 L Hemoglobin 8.9 L Hematocrit 27.9 L Mean Corpuscular Volume 94.3 Mean Corpuscular Hemoglobin 30.1 Mean Corpuscular Hemoglobin Concent 31.9 L Red Cell Distribution Width 20.8 H Platelet Count 155 Mean Platelet Volume 10.2 Neutrophils % 68.5 Lymphocytes % 21.6 Monocytes % 5.8 Eosinophils % 1.6 Basophils % 0.4 Nucleated Red Blood Cells % 0.9 H Neutrophils # 3.9 Lymphocytes # 1.2 Monocytes # 0.3 Eosinophils # 0.1 Basophils # 0.0 Nucleated Red Blood Cells # 0.1 H Sodium Level 141 Potassium Level 3.9 Chloride Level 107 Carbon Dioxide Level 23 Anion Gap 15 Blood Urea Nitrogen 12 Creatinine 0.38 L Glucose Level 104 # Calcium Level 7.3 L Test 09/11/16 08:07 09/11/16 12:07 Bedside Glucose 114 178 Medications Medications Current Medications Sodium Chloride (NS) 1,000 ml @ 40 mls/hr Q24H IV Last administered on 12:14; Admin Dose 40 MLS/HR; Start 09/02/16 at 20:36 Ondansetron HCl (Zofran Inj) 4 mg Q6H PRN IV NAUSEA AND/OR VOMITING; Start at 21:00 Acetaminophen (Tylenol Tab) 650 mg Q6H PRN PO PAIN LEVEL 1-3 OR FEVER; Start at 21:00 Morphine Sulfate (morphine) 2 mg Q4H PRN IV PAIN LEVEL 7-10; Start 09/02/16 at 21:00 Enoxaparin Sodium (Lovenox) 30 mg DAILY SC Last administered on 09/11/16 09:59 ; Admin Dose 30 MG; Start 09/03/16 at 09:00 Aspirin (Halfprin) 81 mg DAILY PO Last administered on 09/11/16 10:01; Admin Dose 81 MG; Start 09/04/16 at 09:00 Docusate Sodium (Colace) 100 mg DAILY PO Last administered on 09/11/16 10:04; Admin Dose 100 MG; Start 09/04/16 at 09:00 Losartan Potassium (Cozaar) 100 mg DAILY PO Last administered on 09/11/16 10:01 ; Admin Dose 100 MG; Start 09/04/16 at 09:00 Tamsulosin HCl (Flomax) 0.4 mg DAILY PO Last administered on 09/11/16 10:02; Admin Dose 0.4 MG; Start 09/04/16 at 09:00 Atorvastatin Calcium (Lipitor) 10 mg QHS PO Last administered on 09/10/16 21:06 ; Admin Dose 10 MG; Start 09/03/16 at 21:00 Hydralazine HCl (Apresoline) 10 mg Q6H PRN IV SBP>170; Start 09/03/16 at 14:30 Nystatin (Nystatin Cr) 1 applic BID TOP Last administered on 09/11/16 10:05; Admin Dose 1 APPLIC; Start 09/03/16 at 21:00 Miscellaneous Information 1 ea NOTE XX ; Start 09/03/16 at 15:00 Glucose (Glutose) 15 gm Q15M PRN PO DECREASED GLUCOSE; Start 09/03/16 at 15:00 Glucose (Glutose) 22.5 gm Q15M PRN PO DECREASED GLUCOSE; Start 09/03/16 at 15: 00 Dextrose (D50w Syringe) 25 ml Q15M PRN IV DECREASED GLUCOSE; Start 09/03/16 at 15:00 Dextrose (D50w Syringe) 50 ml Q15M PRN IV DECREASED GLUCOSE Last administered on 09/10/16 01:51; Admin Dose 50 ML; Start 09/03/16 at 15:00 Glucagon (Glucagen) 1 mg Q15M PRN IM DECREASED GLUCOSE; Start 09/03/16 at 15:00 Glucose (Glutose) 15 gm Q15M PRN BUCCAL DECREASED GLUCOSE; Start 09/03/16 at 15 :00 Amiodarone HCl (Cordarone) 200 mg DAILY PO Last administered on 09/11/16 10:01 ; Admin Dose 200 MG; Start 09/04/16 at 09:00 Hydralazine HCl (Apresoline) 25 mg BID PO Last administered on 09/11/16 10:02; Admin Dose 25 MG; Start 09/04/16 at 09:00 Metoprolol Tartrate (Lopressor) 12.5 mg BID PO Last administered on 09/11/16 10 :03; Admin Dose 12.5 MG; Start 09/04/16 at 09:00 Pantoprazole (Protonix Tab) 40 mg DAILY@06 PO Last administered on 09/11/16 06: 01; Admin Dose 40 MG; Start 09/04/16 at 06:00 Sodium Chloride (Nacl) 1 gm TID PO Last administered on 09/11/16 12:17; Admin Dose 1 GM; Start 09/04/16 at 09:00 Ascorbic Acid (Vitamin C) 500 mg BID PO Last administered on 09/11/16 10:01; Admin Dose 500 MG; Start 09/04/16 at 09:00 Lactobacillus Acidophilus/ Rhamnosus (Culturelle) 1 cap DAILY PO Last administered on 09/11/16 10:01; Admin Dose 1 CAP; Start 09/04/16 at 09:00 Zinc Sulfate (Zinc Sulfate) 220 mg DAILY PO Last administered on 09/11/16 10:00 ; Admin Dose 220 MG; Start 09/04/16 at 09:00; Stop 09/17/16 at 10:00 Multivitamins/ Minerals (Theragran-M) 1 tab DAILY PO Last administered on 10:02; Admin Dose 1 TAB; Start 09/04/16 at 09:00 Diagnostic Test (Pha) (Accu-Chek) 1 ea 02 XX Last administered on 09/10/16 01: 56; Admin Dose 1 EA; Start 09/04/16 at 02:00 Mupirocin 1 applic 1 applic BID TOP Last administered on 09/11/16 10:05; Admin Dose 1 APPLIC; Start 09/06/16 at 21:00; Stop 09/13/16 at 09:01 Caspofungin 35 mg/ Sodium Chloride 250 ml @ 250 mls/hr Q24H IV Last administered on 09/10/16 16:19; Admin Dose 250 MLS/HR; Start 09/07/16 at 15:30 Ertapenem 1 gm/ Sodium Chloride 100 ml @ 200 mls/hr Q24H IVPB Last administered on 09/10/16 20:55; Admin Dose 200 MLS/HR; Start 09/07/16 at 20:00 Vancomycin HCl/ Sodium Chloride (Vancocin/NS) 250 ml @ 83.333 mls/ hr Q12H IVPB Last administered on 09/11/16 04:18; Admin Dose 83.333 MLS/HR; Start at 04:00 Diagnostic Test (Pha) (Accu-Chek) 1 ea 02 XX ; Start 09/11/16 at 02:00 Insulin Glargine (Lantus) 6 unit QHS SC Last administered on 09/10/16 21:09; Admin Dose 6 UNIT; Start 09/10/16 at 21:00 Miscellaneous Information (*Rx Drug Level Order Reminder*) 1 ONCE ONCE XX ; Start 09/12/16 at 03:00; Stop 09/12/16 at 03:01 AMY SEALS NP Sep 11, 2016 14:14
[2016-09-11] MEDS: CASPOFUNGIN 35 MG in SOD CHLORIDE 0.9% 250 ML IV SCH (15:03)
[2016-09-11 20:09] VITALS: BP 124/58; RESP 17
[2016-09-11] MEDS: ERTAPENEM SODIUM 1 GM in SOD CHLORIDE 0.9% 100 ML IVPB SCH (20:33)
[2016-09-11] MEDS: ATORVASTATIN 10 MG TAB PO SCH (20:34)
[2016-09-11] MEDS: INSULIN GLARGINE [LANtus] 3 ML PEN SC SCH (20:36)
[2016-09-11] MEDS: ACYCLOVIR 400 MG TAB PO SCH (20:39)
[2016-09-12] MEDS: SOD CHLORIDE 0.9% 1,000 ML IV SCH (00:27)
[2016-09-12] MEDS: ACCU-CHEK XX SCH ×2 (01:50)
[2016-09-12 03:17] LABS: ADD SCAN DIFF NO
[2016-09-12 03:19] LABS: BASOPHILS % 0.3 % (0.0-2.0); EOSINOPHILS # 0.1 10^3/ul (0.0-0.5); HEMATOCRIT 30.3 % (42.0-52.0); HEMOGLOBIN 9.6 g/dl (14.0-18.0); LYMPHOCYTES # 1.6 10^3/ul (0.8-2.9); MEAN CORPUSCULAR HEMOGLOBIN 29.9 pg (29.0-33.0); MEAN CORPUSCULAR HGB CONC 31.7 g/dl (32.0-37.0); MEAN CORPUSCULAR VOLUME 94.4 fl (82.0-101.0); MEAN PLATELET VOLUME 10.2 fl (7.4-10.4); MONOCYTE # 0.4 10^3/ul (0.3-0.9); MONOCYTES % 5.7 % (0.0-11.0); NEUTROPHIL # 4.6 10^3/ul (1.6-7.5); NEUTROPHILS % 67.8 % (39.0-77.0); NUCLEATED RED BLOOD CELLS # 0.1 10^3/ul (0.0-0.0); NUCLEATED RED BLOOD CELLS% 0.7 /100WBC (0.0-0.0); PLATELET COUNT 159 10^3/UL (140-415); RED BLOOD COUNT 3.21 10^6/ul (4.70-6.10); WHITE BLOOD COUNT 6.8 10^3/ul (4.8-10.8)
[2016-09-12 03:41] LABS: CALCIUM 7.4 mg/dl (8.4-10.2); CREATININE 0.44 mg/dl (0.61-1.24); POTASSIUM 3.8 mmol/L (3.5-5.1)
[2016-09-12] MEDS: PANTOPRAZOLE (EC) 40 MG TAB PO SCH (05:15)
[2016-09-12] MEDS ORDERED: VANCOMYCIN 1.25 GM in SOD CHLORIDE 0.9% 250 ML IVPB SCH (06:00)
[2016-09-12] MEDS: INSULIN ASPART [NOVOLOG] 3 ML PEN SC SCH ×8 (08:00→21:31)
[2016-09-12] MEDS: ENOXAPARIN 30 MG/0.3 ML SYG SC SCH (08:14)
[2016-09-12] MEDS: TAMSULOSIN (SR) 0.4 MG CAP PO SCH (08:17)
[2016-09-12] MEDS: SODIUM CHLORIDE 1 GM TAB PO SCH ×3 (08:17→21:26)
[2016-09-12] MEDS: LOSARTAN 50 MG TAB PO SCH (08:17)
[2016-09-12 08:18] VITALS: BP 124/59; RESP 24
[2016-09-12] MEDS: DOCUSATE SODIUM 100 MG CAP PO SCH (08:18)
[2016-09-12] MEDS: ACYCLOVIR 400 MG TAB PO SCH ×3 (08:18→21:26)
[2016-09-12] MEDS: ASCORBIC ACID 500 MG TAB PO SCH ×2 (08:18→21:27)
[2016-09-12] MEDS: NYSTATIN 15 GM CR TOP SCH ×2 (08:18→21:27)
[2016-09-12] MEDS: METOPROLOL 25 MG TAB PO SCH ×2 (08:18→21:26)
[2016-09-12] MEDS: AMIODARONE 200 MG TAB PO SCH (08:19)
[2016-09-12] MEDS: ZINC SULFATE 220 MG CAP PO SCH (08:19)
[2016-09-12] MEDS: ASPIRIN (EC) 81 MG TAB PO SCH (08:19)
[2016-09-12] MEDS: LACTOBACILLUS RHAMNOSUS CAP PO SCH (08:19)
[2016-09-12] MEDS: MULTIVITAMINS/MINERALS TAB PO SCH (08:19)
--- NOTE | 2016-09-12 11:43 | PN ---
Date/Time of Note Date/Time of Note DATE: 09/12/16 TIME: 11:40 Assessment/Plan VTE Prophylaxis VTE Prophylaxis Intervention: SCD's Lines/Catheters IV C[facility]ter Type (from [facility] Peripheral IV Urinary Cath still in place: No Assessment/Plan Chief Complaint/Hosp Course Patient remains hemodynamically stable, blood sugar is better controlled. ASSESSMENT AND PLAN: - Lower back lesions, questionable shingles, continue isolation, empiric acyclovir. - Polymicrobial urinary tract infection, including E. coli ESBL, Dr. Rodrigues is following infection disease consultation. Continue antibiotics per ID. - Possible sepsis secondary to urinary tract infection with leukocytosis and encephalopathy, resolving. - Severe hyponatremia,resolved. Dr. Howard is following in nephrology consultation. - Metastatic prostate carcinoma. Dr. Sinclair is following in oncology consultation. - Hypertension. Continue Cozaar. - Diabetes mellitus. Continue Lantus and NovoLog. Continue Lovenox for deep venous thrombosis prophylaxis and Pepcid for peptic ulcer disease prophylaxis. Further recommendations based on clinical course. Plan of care discussed with Dr. Gregory. Problems: Exam/Review of Systems Vital Signs Vitals Vital Signs Date Time Temp Pulse Resp B/P Pulse Ox O2 Delivery O2 Flow Rate FiO2 09/12/16 08:18 97.7 74 24 124/59 92 Intake and Output 09/11/16 09/11/16 09/12/16 15:00 23:00 07:00 Intake Total 250 ml 1030 ml 1523.333 ml Balance 250 ml 1030 ml 1523.333 ml Exam Constitutional: alert Head: atraumatic, normocephalic Neck: supple Respiratory: normal air movement Cardiovascular: nl pulses Gastrointestinal: non-tender, soft Genitourinary - Male: other Musculoskeletal: muscle weakness Extremities: normal pulses Results Result Diagram: 09/12/16 0300 09/12/16 0300 Results 24 hrs Laboratory Tests Test 09/11/16 12:07 09/11/16 17:19 09/11/16 20:31 09/12/16 01:52 Bedside Glucose 178 209 213 128 Test 09/12/16 03:00 09/12/16 08:11 09/12/16 11:34 White Blood Count 6.8 Red Blood Count 3.21 L Hemoglobin 9.6 L Hematocrit 30.3 L Mean Corpuscular Volume 94.4 Mean Corpuscular Hemoglobin 29.9 Mean Corpuscular Hemoglobin Concent 31.7 L Red Cell Distribution Width 21.0 H Platelet Count 159 Mean Platelet Volume 10.2 Neutrophils % 67.8 Lymphocytes % 23.0 Monocytes % 5.7 Eosinophils % 1.0 Basophils % 0.3 Nucleated Red Blood Cells % 0.7 H Neutrophils # 4.6 Lymphocytes # 1.6 Monocytes # 0.4 Eosinophils # 0.1 Basophils # 0.0 Nucleated Red Blood Cells # 0.1 H Sodium Level 135 Potassium Level 3.8 Chloride Level 112 H Carbon Dioxide Level 22 Anion Gap 5 #L Blood Urea Nitrogen 13 Creatinine 0.44 L Glucose Level 120 Calcium Level 7.4 L Vancomycin Level Trough 18.8 Bedside Glucose 120 139 Medications Medications Current Medications Sodium Chloride (NS) 1,000 ml @ 40 mls/hr Q24H IV Last administered on 00:27; Admin Dose 40 MLS/HR; Start 09/02/16 at 20:36 Ondansetron HCl (Zofran Inj) 4 mg Q6H PRN IV NAUSEA AND/OR VOMITING; Start at 21:00 Acetaminophen (Tylenol Tab) 650 mg Q6H PRN PO PAIN LEVEL 1-3 OR FEVER; Start at 21:00 Morphine Sulfate (morphine) 2 mg Q4H PRN IV PAIN LEVEL 7-10; Start 09/02/16 at 21:00 Enoxaparin Sodium (Lovenox) 30 mg DAILY SC Last administered on 09/12/16 08:14 ; Admin Dose 30 MG; Start 09/03/16 at 09:00 Aspirin (Halfprin) 81 mg DAILY PO Last administered on 09/12/16 08:19; Admin Dose 81 MG; Start 09/04/16 at 09:00 Docusate Sodium (Colace) 100 mg DAILY PO Last administered on 09/12/16 08:18; Admin Dose 100 MG; Start 09/04/16 at 09:00 Losartan Potassium (Cozaar) 100 mg DAILY PO Last administered on 09/12/16 08:17 ; Admin Dose 100 MG; Start 09/04/16 at 09:00 Tamsulosin HCl (Flomax) 0.4 mg DAILY PO Last administered on 09/12/16 08:17; Admin Dose 0.4 MG; Start 09/04/16 at 09:00 Atorvastatin Calcium (Lipitor) 10 mg QHS PO Last administered on 09/11/16 20:34 ; Admin Dose 10 MG; Start 09/03/16 at 21:00 Hydralazine HCl (Apresoline) 10 mg Q6H PRN IV SBP>170; Start 09/03/16 at 14:30 Nystatin (Nystatin Cr) 1 applic BID TOP Last administered on 09/12/16 08:18; Admin Dose 1 APPLIC; Start 09/03/16 at 21:00 Miscellaneous Information 1 ea NOTE XX ; Start 09/03/16 at 15:00 Glucose (Glutose) 15 gm Q15M PRN PO DECREASED GLUCOSE; Start 09/03/16 at 15:00 Glucose (Glutose) 22.5 gm Q15M PRN PO DECREASED GLUCOSE; Start 09/03/16 at 15: 00 Dextrose (D50w Syringe) 25 ml Q15M PRN IV DECREASED GLUCOSE; Start 09/03/16 at 15:00 Dextrose (D50w Syringe) 50 ml Q15M PRN IV DECREASED GLUCOSE Last administered on 09/10/16 01:51; Admin Dose 50 ML; Start 09/03/16 at 15:00 Glucagon (Glucagen) 1 mg Q15M PRN IM DECREASED GLUCOSE; Start 09/03/16 at 15:00 Glucose (Glutose) 15 gm Q15M PRN BUCCAL DECREASED GLUCOSE; Start 09/03/16 at 15 :00 Amiodarone HCl (Cordarone) 200 mg DAILY PO Last administered on 09/12/16 08:19 ; Admin Dose 200 MG; Start 09/04/16 at 09:00 Hydralazine HCl (Apresoline) 25 mg BID PO Last administered on 09/12/16 08:18; Admin Dose 25 MG; Start 09/04/16 at 09:00 Metoprolol Tartrate (Lopressor) 12.5 mg BID PO Last administered on 09/12/16 08 :18; Admin Dose 12.5 MG; Start 09/04/16 at 09:00 Pantoprazole (Protonix Tab) 40 mg DAILY@06 PO Last administered on 09/12/16 05: 15; Admin Dose 40 MG; Start 09/04/16 at 06:00 Sodium Chloride (Nacl) 1 gm TID PO Last administered on 09/12/16 08:17; Admin Dose 1 GM; Start 09/04/16 at 09:00 Ascorbic Acid (Vitamin C) 500 mg BID PO Last administered on 09/12/16 08:18; Admin Dose 500 MG; Start 09/04/16 at 09:00 Lactobacillus Acidophilus/ Rhamnosus (Culturelle) 1 cap DAILY PO Last administered on 09/12/16 08:19; Admin Dose 1 CAP; Start 09/04/16 at 09:00 Zinc Sulfate (Zinc Sulfate) 220 mg DAILY PO Last administered on 09/12/16 08:19 ; Admin Dose 220 MG; Start 09/04/16 at 09:00; Stop 09/17/16 at 10:00 Multivitamins/ Minerals (Theragran-M) 1 tab DAILY PO Last administered on 08:19; Admin Dose 1 TAB; Start 09/04/16 at 09:00 Diagnostic Test (Pha) (Accu-Chek) 1 ea 02 XX Last administered on 09/10/16 01: 56; Admin Dose 1 EA; Start 09/04/16 at 02:00 Mupirocin 1 applic 1 applic BID TOP Last administered on 09/11/16 20:40; Admin Dose 1 APPLIC; Start 09/06/16 at 21:00; Stop 09/13/16 at 09:01 Caspofungin 35 mg/ Sodium Chloride 250 ml @ 250 mls/hr Q24H IV Last administered on 09/11/16 15:03; Admin Dose 250 MLS/HR; Start 09/07/16 at 15:30 Ertapenem/Sodium Chloride (Invanz/NS) 100 ml @ 200 mls/hr Q24H IVPB Last administered on 09/11/16 20:33; Admin Dose 200 MLS/HR; Start 09/07/16 at 20:00 Diagnostic Test (Pha) (Accu-Chek) 1 ea 02 XX ; Start 09/11/16 at 02:00 Insulin Glargine (Lantus) 6 unit QHS SC Last administered on 09/11/16 20:36; Admin Dose 6 UNIT; Start 09/10/16 at 21:00 Acyclovir 400 mg 400 mg TID PO Last administered on 09/12/16 08:18; Admin Dose 400 MG; Start 09/11/16 at 21:00 Vancomycin HCl (Vancocin) 250 ml @ 125 mls/hr Q12H IVPB ; Start 09/12/16 at 18: 00 ROBERT CORRALES Sep 12, 2016 11:43
--- NOTE | 2016-09-12 14:03 | CONS ---
Date/Time of Note Date/Time of Note DATE: 09/12/16 TIME: 14:02 Assessment/Plan Assessment/Plan Chief Complaint/Hosp Course No acute events overnight. Patient is awake. Looks comfortable, no fevers Antimicrobials: Peterson Jason Microbiology: Urine culture on admission grew MRSA, enterococcus species, Xochilt albicans, E. coli ESBL Physical examination: Obese, well-developed elderly man who is in no distress Head atraumatic normocephalic, sclera nonicteric, bugle mucosa dry. Neck is supple, trachea midline Chest rise symmetrical, breath sounds clear Abdomen soft, bowel tones present Skin with lesions on the sacral area Extremities without cyanosis edema. Assessment: 1. Status post polymicrobial UTI 2. Resolving encephalopathy and leukocytosis 3. Metastatic prostate CA 4. Diabetes 5. Hypertension 6. Sacral area skin lesions questionable shingles==> on empiric acyclovir Plan: Remains stable, continue acyclovir, discontinue antibiotics in the a.m. Discussed with staff Problems: Consultation Date/Type/Reason Admit Date/Time Sep 03, 2016 at 07:04 Type of Consultation: ID Referring Provider: CHANELLE PAUL MD Exam/Review of Systems Vital Signs Vitals Vital Signs Date Time Temp Pulse Resp B/P Pulse Ox O2 Delivery O2 Flow Rate FiO2 09/12/16 08:18 97.7 74 24 124/59 92 Intake and Output 09/11/16 09/11/16 09/12/16 15:00 23:00 07:00 Intake Total 250 ml 1030 ml 1523.333 ml Balance 250 ml 1030 ml 1523.333 ml Results Result Diagram: 09/12/16 0300 09/12/16 0300 Results 24 hrs Laboratory Tests Test 09/11/16 17:19 09/11/16 20:31 09/12/16 01:52 09/12/16 03:00 Bedside Glucose 209 213 128 White Blood Count 6.8 Red Blood Count 3.21 L Hemoglobin 9.6 L Hematocrit 30.3 L Mean Corpuscular Volume 94.4 Mean Corpuscular Hemoglobin 29.9 Mean Corpuscular Hemoglobin Concent 31.7 L Red Cell Distribution Width 21.0 H Platelet Count 159 Mean Platelet Volume 10.2 Neutrophils % 67.8 Lymphocytes % 23.0 Monocytes % 5.7 Eosinophils % 1.0 Basophils % 0.3 Nucleated Red Blood Cells % 0.7 H Neutrophils # 4.6 Lymphocytes # 1.6 Monocytes # 0.4 Eosinophils # 0.1 Basophils # 0.0 Nucleated Red Blood Cells # 0.1 H Sodium Level 135 Potassium Level 3.8 Chloride Level 112 H Carbon Dioxide Level 22 Anion Gap 5 #L Blood Urea Nitrogen 13 Creatinine 0.44 L Glucose Level 120 Calcium Level 7.4 L Vancomycin Level Trough 18.8 Test 09/12/16 08:11 09/12/16 11:34 Bedside Glucose 120 139 Medications Medications Current Medications Sodium Chloride (NS) 1,000 ml @ 40 mls/hr Q24H IV Last administered on 00:27; Admin Dose 40 MLS/HR; Start 09/02/16 at 20:36 Ondansetron HCl (Zofran Inj) 4 mg Q6H PRN IV NAUSEA AND/OR VOMITING; Start at 21:00 Acetaminophen (Tylenol Tab) 650 mg Q6H PRN PO PAIN LEVEL 1-3 OR FEVER; Start at 21:00 Morphine Sulfate (morphine) 2 mg Q4H PRN IV PAIN LEVEL 7-10; Start 09/02/16 at 21:00 Enoxaparin Sodium (Lovenox) 30 mg DAILY SC Last administered on 09/12/16 08:14 ; Admin Dose 30 MG; Start 09/03/16 at 09:00 Aspirin (Halfprin) 81 mg DAILY PO Last administered on 09/12/16 08:19; Admin Dose 81 MG; Start 09/04/16 at 09:00 Docusate Sodium (Colace) 100 mg DAILY PO Last administered on 09/12/16 08:18; Admin Dose 100 MG; Start 09/04/16 at 09:00 Losartan Potassium (Cozaar) 100 mg DAILY PO Last administered on 09/12/16 08:17 ; Admin Dose 100 MG; Start 09/04/16 at 09:00 Tamsulosin HCl (Flomax) 0.4 mg DAILY PO Last administered on 09/12/16 08:17; Admin Dose 0.4 MG; Start 09/04/16 at 09:00 Atorvastatin Calcium (Lipitor) 10 mg QHS PO Last administered on 09/11/16 20:34 ; Admin Dose 10 MG; Start 09/03/16 at 21:00 Hydralazine HCl (Apresoline) 10 mg Q6H PRN IV SBP>170; Start 09/03/16 at 14:30 Nystatin (Nystatin Cr) 1 applic BID TOP Last administered on 09/12/16 08:18; Admin Dose 1 APPLIC; Start 09/03/16 at 21:00 Miscellaneous Information 1 ea NOTE XX ; Start 09/03/16 at 15:00 Glucose (Glutose) 15 gm Q15M PRN PO DECREASED GLUCOSE; Start 09/03/16 at 15:00 Glucose (Glutose) 22.5 gm Q15M PRN PO DECREASED GLUCOSE; Start 09/03/16 at 15: 00 Dextrose (D50w Syringe) 25 ml Q15M PRN IV DECREASED GLUCOSE; Start 09/03/16 at 15:00 Dextrose (D50w Syringe) 50 ml Q15M PRN IV DECREASED GLUCOSE Last administered on 09/10/16 01:51; Admin Dose 50 ML; Start 09/03/16 at 15:00 Glucagon (Glucagen) 1 mg Q15M PRN IM DECREASED GLUCOSE; Start 09/03/16 at 15:00 Glucose (Glutose) 15 gm Q15M PRN BUCCAL DECREASED GLUCOSE; Start 09/03/16 at 15 :00 Amiodarone HCl (Cordarone) 200 mg DAILY PO Last administered on 09/12/16 08:19 ; Admin Dose 200 MG; Start 09/04/16 at 09:00 Hydralazine HCl (Apresoline) 25 mg BID PO Last administered on 09/12/16 08:18; Admin Dose 25 MG; Start 09/04/16 at 09:00 Metoprolol Tartrate (Lopressor) 12.5 mg BID PO Last administered on 09/12/16 08 :18; Admin Dose 12.5 MG; Start 09/04/16 at 09:00 Pantoprazole (Protonix Tab) 40 mg DAILY@06 PO Last administered on 09/12/16 05: 15; Admin Dose 40 MG; Start 09/04/16 at 06:00 Sodium Chloride (Nacl) 1 gm TID PO Last administered on 09/12/16 13:31; Admin Dose 1 GM; Start 09/04/16 at 09:00 Ascorbic Acid (Vitamin C) 500 mg BID PO Last administered on 09/12/16 08:18; Admin Dose 500 MG; Start 09/04/16 at 09:00 Lactobacillus Acidophilus/ Rhamnosus (Culturelle) 1 cap DAILY PO Last administered on 09/12/16 08:19; Admin Dose 1 CAP; Start 09/04/16 at 09:00 Zinc Sulfate (Zinc Sulfate) 220 mg DAILY PO Last administered on 09/12/16 08:19 ; Admin Dose 220 MG; Start 09/04/16 at 09:00; Stop 09/17/16 at 10:00 Multivitamins/ Minerals (Theragran-M) 1 tab DAILY PO Last administered on 08:19; Admin Dose 1 TAB; Start 09/04/16 at 09:00 Diagnostic Test (Pha) (Accu-Chek) 1 ea 02 XX Last administered on 09/10/16 01: 56; Admin Dose 1 EA; Start 09/04/16 at 02:00 Mupirocin 1 applic 1 applic BID TOP Last administered on 09/11/16 20:40; Admin Dose 1 APPLIC; Start 09/06/16 at 21:00; Stop 09/13/16 at 09:01 Caspofungin 35 mg/ Sodium Chloride 250 ml @ 250 mls/hr Q24H IV Last administered on 09/11/16 15:03; Admin Dose 250 MLS/HR; Start 09/07/16 at 15:30 Ertapenem/Sodium Chloride (Invanz/NS) 100 ml @ 200 mls/hr Q24H IVPB Last administered on 09/11/16 20:33; Admin Dose 200 MLS/HR; Start 09/07/16 at 20:00 Insulin Glargine (Lantus) 6 unit QHS SC Last administered on 09/11/16 20:36; Admin Dose 6 UNIT; Start 09/10/16 at 21:00 Acyclovir 400 mg 400 mg TID PO Last administered on 09/12/16 13:31; Admin Dose 400 MG; Start 09/11/16 at 21:00 Vancomycin HCl (Vancocin) 250 ml @ 125 mls/hr Q12H IVPB ; Start 09/12/16 at 18: 00 AMY SEALS NP Sep 12, 2016 14:03
[2016-09-12] MEDS: BALSAM PERU/CASTOR OIL 60 GM TUBE TOP SCH (15:37)
[2016-09-12] MEDS: MUPIROCIN 2% 22 GM OINT TOP SCH ×2 (15:37→21:35)
[2016-09-12] MEDS: CASPOFUNGIN 35 MG in SOD CHLORIDE 0.9% 250 ML IV SCH (15:46)
--- NOTE | 2016-09-12 17:45 | CONS ---
Date/Time of Note Date/Time of Note DATE: 09/12/16 TIME: 17:44 Assessment/Plan Assessment/Plan Additional Assessment/Plan 1. Severe hyponatremia with sodium 116 on admission, likely secondary to a combination of syndrome of inappropriate antidiuretic hormone and hypovolemic hyponatremia. 2. Acute metabolic encephalopathy from severe hyponatremia and urinary tract infection. 3. Urinary tract infection. 4. 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 Required tolvaptan on last admission. 5. History of metastatic prostate cancer. 6. History of hypertension. 7. History of hyperlipidemia. 8. History of bilateral knee arthritis. 9. Acute hyperkalemia secondary to possible prerenal azotemia, resolved. 10. Hypocalcemia Ca 7.2, alb 2.0, corrected Ca is 8.8 PLAN: S/p 3 % saline, Corrected ca is normal IV a bx Invanz IVF NS at 40 cc/hr Cr normal, will follo wup family awaits oncology opinion before deciding for hospice care Consultation Date/Type/Reason Admit Date/Time Sep 03, 2016 at 07:04 Type of Consultation: NEPHROLOGY Referring Provider: CHANELLE PAUL MD Exam/Review of Systems Vital Signs Vitals Vital Signs Date Time Temp Pulse Resp B/P Pulse Ox O2 Delivery O2 Flow Rate FiO2 09/12/16 08:18 97.7 74 24 124/59 92 Intake and Output 09/11/16 09/11/16 09/12/16 15:00 23:00 07:00 Intake Total 250 ml 1030 ml 1523.333 ml Balance 250 ml 1030 ml 1523.333 ml Exam GENERAL: Awake, alert, not oriented to place, person, and time. HEENT: Pupils equal and round, reactive to light and accommodation. Extraocular muscles are intact. NECK: Supple. No JVD, no lymphadenopathy. LUNGS: Clear to auscultation. No crackles or wheezes. HEART: S1, S2 with regular rhythm. No murmur. ABDOMEN: Soft, nontender, nondistended. Bowel sounds are present. EXTREMITIES: No clubbing, cyanosis, edema. NEUROLOGICAL: Uncooperative for exam. Results Result Diagram: 09/12/16 0300 09/12/16 0300 Results 24 hrs Laboratory Tests Test 09/11/16 20:31 09/12/16 01:52 09/12/16 03:00 09/12/16 08:11 Bedside Glucose 213 128 120 White Blood Count 6.8 Red Blood Count 3.21 L Hemoglobin 9.6 L Hematocrit 30.3 L Mean Corpuscular Volume 94.4 Mean Corpuscular Hemoglobin 29.9 Mean Corpuscular Hemoglobin Concent 31.7 L Red Cell Distribution Width 21.0 H Platelet Count 159 Mean Platelet Volume 10.2 Neutrophils % 67.8 Lymphocytes % 23.0 Monocytes % 5.7 Eosinophils % 1.0 Basophils % 0.3 Nucleated Red Blood Cells % 0.7 H Neutrophils # 4.6 Lymphocytes # 1.6 Monocytes # 0.4 Eosinophils # 0.1 Basophils # 0.0 Nucleated Red Blood Cells # 0.1 H Sodium Level 135 Potassium Level 3.8 Chloride Level 112 H Carbon Dioxide Level 22 Anion Gap 5 #L Blood Urea Nitrogen 13 Creatinine 0.44 L Glucose Level 120 Calcium Level 7.4 L Vancomycin Level Trough 18.8 Test 09/12/16 11:34 09/12/16 17:03 Bedside Glucose 139 130 Medications Medications Current Medications Sodium Chloride (NS) 1,000 ml @ 40 mls/hr Q24H IV Last administered on 00:27; Admin Dose 40 MLS/HR; Start 09/02/16 at 20:36 Ondansetron HCl (Zofran Inj) 4 mg Q6H PRN IV NAUSEA AND/OR VOMITING; Start at 21:00 Acetaminophen (Tylenol Tab) 650 mg Q6H PRN PO PAIN LEVEL 1-3 OR FEVER; Start at 21:00 Morphine Sulfate (morphine) 2 mg Q4H PRN IV PAIN LEVEL 7-10; Start 09/02/16 at 21:00 Enoxaparin Sodium (Lovenox) 30 mg DAILY SC Last administered on 09/12/16 08:14 ; Admin Dose 30 MG; Start 09/03/16 at 09:00 Aspirin (Halfprin) 81 mg DAILY PO Last administered on 09/12/16 08:19; Admin Dose 81 MG; Start 09/04/16 at 09:00 Docusate Sodium (Colace) 100 mg DAILY PO Last administered on 09/12/16 08:18; Admin Dose 100 MG; Start 09/04/16 at 09:00 Losartan Potassium (Cozaar) 100 mg DAILY PO Last administered on 09/12/16 08:17 ; Admin Dose 100 MG; Start 09/04/16 at 09:00 Tamsulosin HCl (Flomax) 0.4 mg DAILY PO Last administered on 09/12/16 08:17; Admin Dose 0.4 MG; Start 09/04/16 at 09:00 Atorvastatin Calcium (Lipitor) 10 mg QHS PO Last administered on 09/11/16 20:34 ; Admin Dose 10 MG; Start 09/03/16 at 21:00 Hydralazine HCl (Apresoline) 10 mg Q6H PRN IV SBP>170; Start 09/03/16 at 14:30 Nystatin (Nystatin Cr) 1 applic BID TOP Last administered on 09/12/16 08:18; Admin Dose 1 APPLIC; Start 09/03/16 at 21:00 Miscellaneous Information 1 ea NOTE XX ; Start 09/03/16 at 15:00 Glucose (Glutose) 15 gm Q15M PRN PO DECREASED GLUCOSE; Start 09/03/16 at 15:00 Glucose (Glutose) 22.5 gm Q15M PRN PO DECREASED GLUCOSE; Start 09/03/16 at 15: 00 Dextrose (D50w Syringe) 25 ml Q15M PRN IV DECREASED GLUCOSE; Start 09/03/16 at 15:00 Dextrose (D50w Syringe) 50 ml Q15M PRN IV DECREASED GLUCOSE Last administered on 09/10/16 01:51; Admin Dose 50 ML; Start 09/03/16 at 15:00 Glucagon (Glucagen) 1 mg Q15M PRN IM DECREASED GLUCOSE; Start 09/03/16 at 15:00 Glucose (Glutose) 15 gm Q15M PRN BUCCAL DECREASED GLUCOSE; Start 09/03/16 at 15 :00 Amiodarone HCl (Cordarone) 200 mg DAILY PO Last administered on 09/12/16 08:19 ; Admin Dose 200 MG; Start 09/04/16 at 09:00 Hydralazine HCl (Apresoline) 25 mg BID PO Last administered on 09/12/16 08:18; Admin Dose 25 MG; Start 09/04/16 at 09:00 Metoprolol Tartrate (Lopressor) 12.5 mg BID PO Last administered on 09/12/16 08 :18; Admin Dose 12.5 MG; Start 09/04/16 at 09:00 Pantoprazole (Protonix Tab) 40 mg DAILY@06 PO Last administered on 09/12/16 05: 15; Admin Dose 40 MG; Start 09/04/16 at 06:00 Sodium Chloride (Nacl) 1 gm TID PO Last administered on 09/12/16 13:31; Admin Dose 1 GM; Start 09/04/16 at 09:00 Ascorbic Acid (Vitamin C) 500 mg BID PO Last administered on 09/12/16 08:18; Admin Dose 500 MG; Start 09/04/16 at 09:00 Lactobacillus Acidophilus/ Rhamnosus (Culturelle) 1 cap DAILY PO Last administered on 09/12/16 08:19; Admin Dose 1 CAP; Start 09/04/16 at 09:00 Zinc Sulfate (Zinc Sulfate) 220 mg DAILY PO Last administered on 09/12/16 08:19 ; Admin Dose 220 MG; Start 09/04/16 at 09:00; Stop 09/17/16 at 10:00 Multivitamins/ Minerals (Theragran-M) 1 tab DAILY PO Last administered on 08:19; Admin Dose 1 TAB; Start 09/04/16 at 09:00 Diagnostic Test (Pha) (Accu-Chek) 1 ea 02 XX Last administered on 09/10/16 01: 56; Admin Dose 1 EA; Start 09/04/16 at 02:00 Mupirocin 1 applic 1 applic BID TOP Last administered on 09/12/16 15:37; Admin Dose 1 APPLIC; Start 09/06/16 at 21:00; Stop 09/13/16 at 09:01 Caspofungin 35 mg/ Sodium Chloride 250 ml @ 250 mls/hr Q24H IV Last administered on 09/12/16 15:46; Admin Dose 250 MLS/HR; Start 09/07/16 at 15:30; Stop 09/13/16 at 06:00 Ertapenem/Sodium Chloride (Invanz/NS) 100 ml @ 200 mls/hr Q24H IVPB Last administered on 09/11/16 20:33; Admin Dose 200 MLS/HR; Start 09/07/16 at 20:00; Stop 09/13/16 at 06:00 Insulin Glargine (Lantus) 6 unit QHS SC Last administered on 09/11/16 20:36; Admin Dose 6 UNIT; Start 09/10/16 at 21:00 Acyclovir 400 mg 400 mg TID PO Last administered on 09/12/16 13:31; Admin Dose 400 MG; Start 09/11/16 at 21:00 Vancomycin HCl (Vancocin) 250 ml @ 125 mls/hr Q12H IVPB ; Start 09/12/16 at 18: 00; Stop 09/13/16 at 06:00 KARLENE MUÑOZ MD Sep 12, 2016 17:45
[2016-09-12] MEDS ORDERED: VANCOMYCIN 1 GM in NS 250 ML IVPB SCH ×2 (18:00→21:00)
[2016-09-12 20:00] VITALS: BP 111/59; RESP 20
[2016-09-12] MEDS: ERTAPENEM SODIUM 1 GM in SOD CHLORIDE 0.9% 100 ML IVPB SCH (21:25)
[2016-09-12] MEDS: ATORVASTATIN 10 MG TAB PO SCH (21:27)
[2016-09-12] MEDS: INSULIN GLARGINE [LANtus] 3 ML PEN SC SCH (21:30)
[2016-09-13] MEDS: ACCU-CHEK XX SCH (02:00)
[2016-09-13 02:21] VITALS: BP 118/64; RESP 20
[2016-09-13] MEDS: PANTOPRAZOLE (EC) 40 MG TAB PO SCH (05:41)
[2016-09-13] MEDS: INSULIN ASPART [NOVOLOG] 3 ML PEN SC SCH ×8 (08:00→21:00)
[2016-09-13 08:11] VITALS: BP 152/68; RESP 18
[2016-09-13 08:13] LABS: ADD SCAN DIFF NO
[2016-09-13 08:20] LABS: BASOPHILS % 0.2 % (0.0-2.0); EOSINOPHILS % 0.6 % (0.0-7.0); HEMATOCRIT 29.9 % (42.0-52.0); HEMOGLOBIN 9.2 g/dl (14.0-18.0); LYMPHOCYTES # 1.4 10^3/ul (0.8-2.9); LYMPHOCYTES % 26.2 % (15.0-51.0); MEAN CORPUSCULAR HEMOGLOBIN 28.8 pg (29.0-33.0); MEAN CORPUSCULAR HGB CONC 30.8 g/dl (32.0-37.0); MEAN CORPUSCULAR VOLUME 93.7 fl (82.0-101.0); MEAN PLATELET VOLUME 10.5 fl (7.4-10.4); MONOCYTE # 0.5 10^3/ul (0.3-0.9); MONOCYTES % 8.7 % (0.0-11.0); NEUTROPHIL # 3.4 10^3/ul (1.6-7.5); NEUTROPHILS % 61.9 % (39.0-77.0); NUCLEATED RED BLOOD CELLS% 0.7 /100WBC (0.0-0.0); PLATELET COUNT 146 10^3/UL (140-415); RED BLOOD COUNT 3.19 10^6/ul (4.70-6.10); RED CELL DISTRIBUTION WIDTH 21.4 % (11.5-14.5); WHITE BLOOD COUNT 5.4 10^3/ul (4.8-10.8)
[2016-09-13] MEDS: DOCUSATE SODIUM 100 MG CAP PO SCH (08:32)
[2016-09-13] MEDS: NYSTATIN 15 GM CR TOP SCH ×2 (08:32→21:00)
[2016-09-13] MEDS: MULTIVITAMINS/MINERALS TAB PO SCH (08:32)
[2016-09-13] MEDS: AMIODARONE 200 MG TAB PO SCH (08:32)
[2016-09-13] MEDS: ASPIRIN (EC) 81 MG TAB PO SCH (08:32)
[2016-09-13] MEDS: ASCORBIC ACID 500 MG TAB PO SCH ×2 (08:33→21:00)
[2016-09-13] MEDS: LACTOBACILLUS RHAMNOSUS CAP PO SCH (08:33)
[2016-09-13] MEDS: LOSARTAN 50 MG TAB PO SCH (08:33)
[2016-09-13] MEDS: ACYCLOVIR 400 MG TAB PO SCH ×3 (08:33→21:00)
[2016-09-13] MEDS: METOPROLOL 25 MG TAB PO SCH ×2 (08:34→21:00)
[2016-09-13] MEDS: ZINC SULFATE 220 MG CAP PO SCH (08:38)
[2016-09-13] MEDS: SODIUM CHLORIDE 1 GM TAB PO SCH ×3 (08:38→21:00)
[2016-09-13] MEDS: TAMSULOSIN (SR) 0.4 MG CAP PO SCH (08:39)
[2016-09-13] MEDS: ENOXAPARIN 30 MG/0.3 ML SYG SC SCH (08:44)
[2016-09-13 08:45] LABS: CALCIUM 7.4 mg/dl (8.4-10.2); CREATININE 0.42 mg/dl (0.61-1.24); POTASSIUM 3.8 mmol/L (3.5-5.1)
[2016-09-13] MEDS: BALSAM PERU/CASTOR OIL 60 GM TUBE TOP SCH (08:55)
[2016-09-13] MEDS: MUPIROCIN 2% 22 GM OINT TOP SCH (08:55)
[2016-09-13 09:16] LABS: AADO2 Arterial 80.6 mmHg (7.0-24.0); Allen Test ACCEPTAB; Arterial Base Excess -3.9 mmol/L (-3.0-3); Arterial COHb 0.3 % (0.0-3.0); Arterial Fraction of Oxyhgb 94.5 % (93.0-99.0); Arterial HCO3 21.1 mmol/L (22.0-26.0); Arterial MetHb 0.4 % (0.0-1.5); Arterial Total Hemglobin 10.1 g/dl (12.0-18.0); MODE NASAL CANNULA
[2016-09-13] MEDS ORDERED: FUROSEMIDE 40 MG INJ IV ONE (10:00)
--- NOTE | 2016-09-13 10:21 | RADRPT ---
PROCEDURE: XR Chest 1 view. CLINICAL INDICATION: Shortness of breath. TECHNIQUE: AP views of the chest were obtained. COMPARISON: September 08, 2016 FINDINGS: The heart is large. Calcified atherosclerosis is noted in the aorta. Central pulmonary vascular con gestion and interstitial prominence is seen in both lungs. Patchy infiltrates are seen throughout b oth lungs and/or combined with moderate pleural effusions. Patchy sclerosis throughout the visualiz ed osseous structures is unchanged. IMPRESSION: Cardiomegaly with calcified atherosclerosis in the aorta. Stable central pulmonary vascular congestion and interstitial prominence in both lungs. Stable patchy infiltrates throughout both lungs, combined with moderate pleural effusions. Stable patchy sclerosis throughout the visualized osseous structures. 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 RPTAT: AA .Jesus Bryant MD, Date Time Electronically viewed and signed by .Jesus Bryant MD, on 09/13/2016 10:21 .P/
[2016-09-13 14:33] VITALS: BP 145/63; RESP 20
--- NOTE | 2016-09-13 17:04 | CONS ---
Date/Time of Note Date/Time of Note DATE: 09/13/16 TIME: 17:04 Assessment/Plan Assessment/Plan Additional Assessment/Plan 1. Severe hyponatremia with sodium 116 on admission, likely secondary to a combination of syndrome of inappropriate antidiuretic hormone and hypovolemic hyponatremia. 2. Acute metabolic encephalopathy from severe hyponatremia and urinary tract infection. 3. Urinary tract infection. 4. 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 Required tolvaptan on last admission. 5. History of metastatic prostate cancer. 6. History of hypertension. 7. History of hyperlipidemia. 8. History of bilateral knee arthritis. 9. Acute hyperkalemia secondary to possible prerenal azotemia, resolved. 10. Hypocalcemia Ca 7.2, alb 2.0, corrected Ca is 8.8 PLAN: S/p 3 % saline, Corrected ca is normal IV a bx Invanz IVF NS at 40 cc/hr Cr normal, plan for hopsice Consultation Date/Type/Reason Admit Date/Time Sep 03, 2016 at 07:04 Type of Consultation: NEPHROLOGY Referring Provider: CHANELLE PAUL MD 24 HR Interval Summary Free Text/Dictation pt has a [employer] caleld in, DNR code status now plan for hospice evaluation now Exam/Review of Systems Vital Signs Vitals Vital Signs Date Time Temp Pulse Resp B/P Pulse Ox O2 Delivery O2 Flow Rate FiO2 09/13/16 14:33 97.9 63 20 145/63 96 09/13/16 14:00 Nasal Cannula 3.0 Intake and Output 09/12/16 09/12/16 09/13/16 15:00 23:00 07:00 Intake Total 1190 ml 490 ml Balance 1190 ml 490 ml Results Result Diagram: 09/13/16 0802 09/13/16 0802 Results 24 hrs Laboratory Tests Test 09/13/16 08:02 09/13/16 08:27 09/13/16 09:08 09/13/16 09:09 White Blood Count 5.4 # Red Blood Count 3.19 L Hemoglobin 9.2 L Hematocrit 29.9 L Mean Corpuscular Volume 93.7 Mean Corpuscular Hemoglobin 28.8 L Mean Corpuscular Hemoglobin Concent 30.8 L Red Cell Distribution Width 21.4 H Platelet Count 146 Mean Platelet Volume 10.5 H Neutrophils % 61.9 Lymphocytes % 26.2 Monocytes % 8.7 Eosinophils % 0.6 Basophils % 0.2 Nucleated Red Blood Cells % 0.7 H Neutrophils # 3.4 Lymphocytes # 1.4 Monocytes # 0.5 Eosinophils # 0.0 Basophils # 0.0 Nucleated Red Blood Cells # 0.0 Sodium Level 138 Potassium Level 3.8 Chloride Level 112 H Carbon Dioxide Level 21 Anion Gap 9 Blood Urea Nitrogen 15 Creatinine 0.42 L Glucose Level 146 Calcium Level 7.4 L Bedside Glucose 134 172 Blood Gas Specimen Source Blood arterial Arterial Blood Date Drawn 09/13/2016 9:02:47 AM Arterial Blood pH (Temp corrected) 7.360 Arterial Blood pCO2 (Temp correct) 38.2 Arterial Blood pO2 (Temp corrected) 88.4 Arterial Blood HCO3 21.1 L Arterial Blood Base Excess -3.9 L Arterial Blood Oxygen Saturation 95.2 Russel Test ACCEPTAB Arterial Blood Gas Puncture Site Right Radial Arterial Blood Carboxyhemoglobin 0.3 Arterial Blood Methemoglobin 0.4 Blood Gas A-a O2 Differential 80.6 H Oxyhemoglobin Percent 94.5 Total Hemoglobin 10.1 L Blood Gas Temperature 37.0 Blood Gas Modality NASAL CANNULA FiO2 30.0 Blood Gas Notified Whom RT Blood Gas Notified Time 09/13/2016 9:16:20 AM Test 09/13/16 11:40 Bedside Glucose 222 H Medications Medications Current Medications Ondansetron HCl (Zofran Inj) 4 mg Q6H PRN IV NAUSEA AND/OR VOMITING; Start at 21:00 Acetaminophen (Tylenol Tab) 650 mg Q6H PRN PO PAIN LEVEL 1-3 OR FEVER; Start at 21:00 Enoxaparin Sodium (Lovenox) 30 mg DAILY SC Last administered on 09/13/16 08:44 ; Admin Dose 30 MG; Start 09/03/16 at 09:00 Aspirin (Halfprin) 81 mg DAILY PO Last administered on 09/13/16 08:32; Admin Dose 81 MG; Start 09/04/16 at 09:00 Docusate Sodium (Colace) 100 mg DAILY PO Last administered on 09/13/16 08:32; Admin Dose 100 MG; Start 09/04/16 at 09:00 Losartan Potassium (Cozaar) 100 mg DAILY PO Last administered on 09/13/16 08:33 ; Admin Dose 100 MG; Start 09/04/16 at 09:00 Tamsulosin HCl (Flomax) 0.4 mg DAILY PO Last administered on 09/13/16 08:39; Admin Dose 0.4 MG; Start 09/04/16 at 09:00 Atorvastatin Calcium (Lipitor) 10 mg QHS PO Last administered on 09/12/16 21:27 ; Admin Dose 10 MG; Start 09/03/16 at 21:00 Hydralazine HCl (Apresoline) 10 mg Q6H PRN IV SBP>170; Start 09/03/16 at 14:30 Nystatin (Nystatin Cr) 1 applic BID TOP Last administered on 09/13/16 08:32; Admin Dose 1 APPLIC; Start 09/03/16 at 21:00 Miscellaneous Information 1 ea NOTE XX ; Start 09/03/16 at 15:00 Glucose (Glutose) 15 gm Q15M PRN PO DECREASED GLUCOSE; Start 09/03/16 at 15:00 Glucose (Glutose) 22.5 gm Q15M PRN PO DECREASED GLUCOSE; Start 09/03/16 at 15: 00 Dextrose (D50w Syringe) 25 ml Q15M PRN IV DECREASED GLUCOSE; Start 09/03/16 at 15:00 Dextrose (D50w Syringe) 50 ml Q15M PRN IV DECREASED GLUCOSE Last administered on 09/10/16 01:51; Admin Dose 50 ML; Start 09/03/16 at 15:00 Glucagon (Glucagen) 1 mg Q15M PRN IM DECREASED GLUCOSE; Start 09/03/16 at 15:00 Glucose (Glutose) 15 gm Q15M PRN BUCCAL DECREASED GLUCOSE; Start 09/03/16 at 15 :00 Amiodarone HCl (Cordarone) 200 mg DAILY PO Last administered on 09/13/16 08:32 ; Admin Dose 200 MG; Start 09/04/16 at 09:00 Hydralazine HCl (Apresoline) 25 mg BID PO Last administered on 09/13/16 08:32; Admin Dose 25 MG; Start 09/04/16 at 09:00 Metoprolol Tartrate (Lopressor) 12.5 mg BID PO Last administered on 09/13/16 08 :34; Admin Dose 12.5 MG; Start 09/04/16 at 09:00 Pantoprazole (Protonix Tab) 40 mg DAILY@06 PO Last administered on 09/13/16 05: 41; Admin Dose 40 MG; Start 09/04/16 at 06:00 Sodium Chloride (Nacl) 1 gm TID PO Last administered on 09/13/16 08:38; Admin Dose 1 GM; Start 09/04/16 at 09:00 Ascorbic Acid (Vitamin C) 500 mg BID PO Last administered on 09/13/16 08:33; Admin Dose 500 MG; Start 09/04/16 at 09:00 Lactobacillus Acidophilus/ Rhamnosus (Culturelle) 1 cap DAILY PO Last administered on 09/13/16 08:33; Admin Dose 1 CAP; Start 09/04/16 at 09:00 Zinc Sulfate (Zinc Sulfate) 220 mg DAILY PO Last administered on 09/13/16 08:38 ; Admin Dose 220 MG; Start 09/04/16 at 09:00; Stop 09/17/16 at 10:00 Multivitamins/ Minerals (Theragran-M) 1 tab DAILY PO Last administered on 08:32; Admin Dose 1 TAB; Start 09/04/16 at 09:00 Diagnostic Test (Pha) (Accu-Chek) 1 ea 02 XX Last administered on 09/10/16 01: 56; Admin Dose 1 EA; Start 09/04/16 at 02:00 Insulin Glargine (Lantus) 6 unit QHS SC Last administered on 09/12/16 21:30; Admin Dose 6 UNIT; Start 09/10/16 at 21:00 Acyclovir (Zovirax) 400 mg TID PO Last administered on 09/13/16 08:33; Admin Dose 400 MG; Start 09/11/16 at 21:00 KARLENE MUÑOZ MD Sep 13, 2016 17:04
--- NOTE | 2016-09-13 19:07 | CONS ---
Date/Time of Note Date/Time of Note DATE: 09/13/16 TIME: 19:05 Assessment/Plan Assessment/Plan Chief Complaint/Hosp Course No acute events overnight. Patient is awake. Looks comfortable, no fevers Physical examination: Obese, well-developed elderly man who is in no distress Head atraumatic normocephalic, sclera nonicteric, bugle mucosa dry. Neck is supple, trachea midline Chest rise symmetrical, breath sounds clear Abdomen soft, bowel tones present Skin with lesions on the sacral area Extremities without cyanosis edema. Assessment: 1. Status post polymicrobial UTI 2. Resolving encephalopathy and leukocytosis 3. Metastatic prostate CA 4. Diabetes 5. Hypertension 6. Sacral area skin lesions questionable shingles==> on empiric acyclovir Plan: Remains unchanged, completed antibiotics, plan for hospice Discussed with staff Problems: Consultation Date/Type/Reason Admit Date/Time Sep 03, 2016 at 07:04 Type of Consultation: ID Referring Provider: CHANELLE PAUL MD Exam/Review of Systems Vital Signs Vitals Vital Signs Date Time Temp Pulse Resp B/P Pulse Ox O2 Delivery O2 Flow Rate FiO2 09/13/16 14:33 97.9 63 20 145/63 96 09/13/16 14:00 Nasal Cannula 3.0 Intake and Output 09/12/16 09/12/16 09/13/16 15:00 23:00 07:00 Intake Total 1190 ml 490 ml Balance 1190 ml 490 ml Results Result Diagram: 09/13/16 0802 09/13/16 0802 Results 24 hrs Laboratory Tests Test 09/13/16 08:02 09/13/16 08:27 09/13/16 09:08 09/13/16 09:09 White Blood Count 5.4 # Red Blood Count 3.19 L Hemoglobin 9.2 L Hematocrit 29.9 L Mean Corpuscular Volume 93.7 Mean Corpuscular Hemoglobin 28.8 L Mean Corpuscular Hemoglobin Concent 30.8 L Red Cell Distribution Width 21.4 H Platelet Count 146 Mean Platelet Volume 10.5 H Neutrophils % 61.9 Lymphocytes % 26.2 Monocytes % 8.7 Eosinophils % 0.6 Basophils % 0.2 Nucleated Red Blood Cells % 0.7 H Neutrophils # 3.4 Lymphocytes # 1.4 Monocytes # 0.5 Eosinophils # 0.0 Basophils # 0.0 Nucleated Red Blood Cells # 0.0 Sodium Level 138 Potassium Level 3.8 Chloride Level 112 H Carbon Dioxide Level 21 Anion Gap 9 Blood Urea Nitrogen 15 Creatinine 0.42 L Glucose Level 146 Calcium Level 7.4 L Bedside Glucose 134 172 Blood Gas Specimen Source Blood arterial Arterial Blood Date Drawn 09/13/2016 9:02:47 AM Arterial Blood pH (Temp corrected) 7.360 Arterial Blood pCO2 (Temp correct) 38.2 Arterial Blood pO2 (Temp corrected) 88.4 Arterial Blood HCO3 21.1 L Arterial Blood Base Excess -3.9 L Arterial Blood Oxygen Saturation 95.2 Russel Test ACCEPTAB Arterial Blood Gas Puncture Site Right Radial Arterial Blood Carboxyhemoglobin 0.3 Arterial Blood Methemoglobin 0.4 Blood Gas A-a O2 Differential 80.6 H Oxyhemoglobin Percent 94.5 Total Hemoglobin 10.1 L Blood Gas Temperature 37.0 Blood Gas Modality NASAL CANNULA FiO2 30.0 Blood Gas Notified Whom RT Blood Gas Notified Time 09/13/2016 9:16:20 AM Test 09/13/16 11:40 09/13/16 17:32 Bedside Glucose 222 H 202 Medications Medications Current Medications Ondansetron HCl (Zofran Inj) 4 mg Q6H PRN IV NAUSEA AND/OR VOMITING; Start at 21:00 Acetaminophen (Tylenol Tab) 650 mg Q6H PRN PO PAIN LEVEL 1-3 OR FEVER; Start at 21:00 Enoxaparin Sodium (Lovenox) 30 mg DAILY SC Last administered on 09/13/16 08:44 ; Admin Dose 30 MG; Start 09/03/16 at 09:00 Aspirin (Halfprin) 81 mg DAILY PO Last administered on 09/13/16 08:32; Admin Dose 81 MG; Start 09/04/16 at 09:00 Docusate Sodium (Colace) 100 mg DAILY PO Last administered on 09/13/16 08:32; Admin Dose 100 MG; Start 09/04/16 at 09:00 Losartan Potassium (Cozaar) 100 mg DAILY PO Last administered on 09/13/16 08:33 ; Admin Dose 100 MG; Start 09/04/16 at 09:00 Tamsulosin HCl (Flomax) 0.4 mg DAILY PO Last administered on 09/13/16 08:39; Admin Dose 0.4 MG; Start 09/04/16 at 09:00 Atorvastatin Calcium (Lipitor) 10 mg QHS PO Last administered on 09/12/16 21:27 ; Admin Dose 10 MG; Start 09/03/16 at 21:00 Hydralazine HCl (Apresoline) 10 mg Q6H PRN IV SBP>170; Start 09/03/16 at 14:30 Nystatin (Nystatin Cr) 1 applic BID TOP Last administered on 09/13/16 08:32; Admin Dose 1 APPLIC; Start 09/03/16 at 21:00 Miscellaneous Information 1 ea NOTE XX ; Start 09/03/16 at 15:00 Glucose (Glutose) 15 gm Q15M PRN PO DECREASED GLUCOSE; Start 09/03/16 at 15:00 Glucose (Glutose) 22.5 gm Q15M PRN PO DECREASED GLUCOSE; Start 09/03/16 at 15: 00 Dextrose (D50w Syringe) 25 ml Q15M PRN IV DECREASED GLUCOSE; Start 09/03/16 at 15:00 Dextrose (D50w Syringe) 50 ml Q15M PRN IV DECREASED GLUCOSE Last administered on 09/10/16 01:51; Admin Dose 50 ML; Start 09/03/16 at 15:00 Glucagon (Glucagen) 1 mg Q15M PRN IM DECREASED GLUCOSE; Start 09/03/16 at 15:00 Glucose (Glutose) 15 gm Q15M PRN BUCCAL DECREASED GLUCOSE; Start 09/03/16 at 15 :00 Amiodarone HCl (Cordarone) 200 mg DAILY PO Last administered on 09/13/16 08:32 ; Admin Dose 200 MG; Start 09/04/16 at 09:00 Hydralazine HCl (Apresoline) 25 mg BID PO Last administered on 09/13/16 08:32; Admin Dose 25 MG; Start 09/04/16 at 09:00 Metoprolol Tartrate (Lopressor) 12.5 mg BID PO Last administered on 09/13/16 08 :34; Admin Dose 12.5 MG; Start 09/04/16 at 09:00 Pantoprazole (Protonix Tab) 40 mg DAILY@06 PO Last administered on 09/13/16 05: 41; Admin Dose 40 MG; Start 09/04/16 at 06:00 Sodium Chloride (Nacl) 1 gm TID PO Last administered on 09/13/16 08:38; Admin Dose 1 GM; Start 09/04/16 at 09:00 Ascorbic Acid (Vitamin C) 500 mg BID PO Last administered on 09/13/16 08:33; Admin Dose 500 MG; Start 09/04/16 at 09:00 Lactobacillus Acidophilus/ Rhamnosus (Culturelle) 1 cap DAILY PO Last administered on 09/13/16 08:33; Admin Dose 1 CAP; Start 09/04/16 at 09:00 Zinc Sulfate (Zinc Sulfate) 220 mg DAILY PO Last administered on 09/13/16 08:38 ; Admin Dose 220 MG; Start 09/04/16 at 09:00; Stop 09/17/16 at 10:00 Multivitamins/ Minerals (Theragran-M) 1 tab DAILY PO Last administered on 08:32; Admin Dose 1 TAB; Start 09/04/16 at 09:00 Diagnostic Test (Pha) (Accu-Chek) 1 ea 02 XX Last administered on 09/10/16 01: 56; Admin Dose 1 EA; Start 09/04/16 at 02:00 Insulin Glargine (Lantus) 6 unit QHS SC Last administered on 09/12/16 21:30; Admin Dose 6 UNIT; Start 09/10/16 at 21:00 Acyclovir (Zovirax) 400 mg TID PO Last administered on 09/13/16 08:33; Admin Dose 400 MG; Start 09/11/16 at 21:00 AMY SEALS NP Sep 13, 2016 19:06
[2016-09-13 19:59] VITALS: BP 129/63; RESP 20
[2016-09-13] MEDS: ATORVASTATIN 10 MG TAB PO SCH (21:00)
[2016-09-13] MEDS: INSULIN GLARGINE [LANtus] 3 ML PEN SC SCH (22:37)
[2016-09-14] MEDS: ACCU-CHEK XX SCH (02:00)
[2016-09-14 02:42] VITALS: BP 141/56; RESP 18
[2016-09-14] MEDS: PANTOPRAZOLE (EC) 40 MG TAB PO SCH (05:32)
[2016-09-14 05:43] LABS: ADD SCAN DIFF NO
[2016-09-14 05:49] LABS: ABNORMAL IP MESSAGE 1; BASOPHILS % 0.2 % (0.0-2.0); EOSINOPHILS % 0.2 % (0.0-7.0); HEMATOCRIT 28.9 % (42.0-52.0); LYMPHOCYTES # 1.2 10^3/ul (0.8-2.9); LYMPHOCYTES % 22.5 % (15.0-51.0); MEAN CORPUSCULAR HGB CONC 31.1 g/dl (32.0-37.0); MEAN CORPUSCULAR VOLUME 96.3 fl (82.0-101.0); MEAN PLATELET VOLUME 10.7 fl (7.4-10.4); MONOCYTE # 0.4 10^3/ul (0.3-0.9); MONOCYTES % 8.2 % (0.0-11.0); NEUTROPHIL # 3.6 10^3/ul (1.6-7.5); NEUTROPHILS % 67.9 % (39.0-77.0); NUCLEATED RED BLOOD CELLS # 0.1 10^3/ul (0.0-0.0); NUCLEATED RED BLOOD CELLS% 1.3 /100WBC (0.0-0.0); PLATELET COUNT 157 10^3/UL (140-415); RED CELL DISTRIBUTION WIDTH 22.1 % (11.5-14.5); WHITE BLOOD COUNT 5.2 10^3/ul (4.8-10.8)
[2016-09-14 06:13] LABS: CALCIUM 7.6 mg/dl (8.4-10.2); CREATININE 0.39 mg/dl (0.61-1.24); POTASSIUM 4.1 mmol/L (3.5-5.1)
[2016-09-14] MEDS: INSULIN ASPART [NOVOLOG] 3 ML PEN SC SCH ×8 (08:00→21:00)
[2016-09-14] MEDS: AMIODARONE 200 MG TAB PO SCH (08:40)
[2016-09-14] MEDS: DOCUSATE SODIUM 100 MG CAP PO SCH (08:40)
[2016-09-14] MEDS: LACTOBACILLUS RHAMNOSUS CAP PO SCH (08:41)
[2016-09-14] MEDS: ASPIRIN (EC) 81 MG TAB PO SCH (08:41)
[2016-09-14] MEDS: LOSARTAN 50 MG TAB PO SCH (08:41)
[2016-09-14] MEDS: TAMSULOSIN (SR) 0.4 MG CAP PO SCH (08:41)
[2016-09-14] MEDS: METOPROLOL 25 MG TAB PO SCH ×2 (08:42→21:00)
[2016-09-14] MEDS: MULTIVITAMINS/MINERALS TAB PO SCH (08:43)
[2016-09-14] MEDS: ASCORBIC ACID 500 MG TAB PO SCH ×2 (08:43→21:00)
[2016-09-14] MEDS: SODIUM CHLORIDE 1 GM TAB PO SCH ×3 (08:43→21:00)
[2016-09-14] MEDS: ENOXAPARIN 30 MG/0.3 ML SYG SC SCH (08:44)
[2016-09-14] MEDS: NYSTATIN 15 GM CR TOP SCH ×2 (08:44→21:00)
[2016-09-14] MEDS: ACYCLOVIR 400 MG TAB PO SCH ×2 (08:44→12:36)
[2016-09-14] MEDS: ZINC SULFATE 220 MG CAP PO SCH (08:44)
[2016-09-14] MEDS: BALSAM PERU/CASTOR OIL 60 GM TUBE TOP SCH (08:44)
[2016-09-14 08:45] VITALS: BP 104/50; RESP 22
--- NOTE | 2016-09-14 12:36 | PN ---
Date/Time of Note Date/Time of Note DATE: 09/14/16 TIME: 12:34 Assessment/Plan VTE Prophylaxis VTE Prophylaxis Intervention: SCD's Lines/Catheters IV C[facility]ter Type (from [facility]): Peripheral IV Urinary Cath still in place: No Assessment/Plan Chief Complaint/Hosp Course Patient remains hemodynamically stable, pending arrangement for home hospice. ASSESSMENT AND PLAN: - Lower back lesions, questionable shingles, continue isolation, empiric acyclovir. - Polymicrobial urinary tract infection, including E. coli ESBL, Dr. Rodrigues is following infection disease consultation. Completed the course of antibiotics. - Possible sepsis secondary to urinary tract infection with leukocytosis and encephalopathy, resolving. - Severe hyponatremia,resolved. Dr. Howard is following in nephrology consultation. - Metastatic prostate carcinoma. Dr. Sinclair is following in oncology consultation. - Hypertension. Continue Cozaar. - Diabetes mellitus. Continue Lantus and NovoLog. Continue Lovenox for deep venous thrombosis prophylaxis and Pepcid for peptic ulcer disease prophylaxis. Further recommendations based on clinical course. Plan of care discussed with Dr. Gregory. Problems: Exam/Review of Systems Vital Signs Vitals Vital Signs Date Time Temp Pulse Resp B/P Pulse Ox O2 Delivery O2 Flow Rate FiO2 09/14/16 11:43 3.0 09/14/16 08:45 97.8 84 22 104/50 92 09/13/16 14:00 Nasal Cannula Intake and Output 09/13/16 09/13/16 09/14/16 15:00 23:00 07:00 Intake Total 320 ml 0 ml Balance 320 ml 0 ml Exam Constitutional: alert Head: atraumatic, normocephalic Neck: supple Respiratory: normal air movement Cardiovascular: nl pulses Gastrointestinal: non-tender, soft Genitourinary - Male: other Musculoskeletal: muscle weakness Extremities: normal pulses Results Result Diagram: 09/14/16 0459 09/14/16 0459 Results 24 hrs Laboratory Tests Test 09/13/16 17:32 09/13/16 20:42 09/14/16 04:59 09/14/16 08:36 Bedside Glucose 202 132 159 White Blood Count 5.2 Red Blood Count 3.00 L Hemoglobin 9.0 L Hematocrit 28.9 L Mean Corpuscular Volume 96.3 Mean Corpuscular Hemoglobin 30.0 Mean Corpuscular Hemoglobin Concent 31.1 L Red Cell Distribution Width 22.1 H Platelet Count 157 Mean Platelet Volume 10.7 H Neutrophils % 67.9 Lymphocytes % 22.5 Monocytes % 8.2 Eosinophils % 0.2 Basophils % 0.2 Nucleated Red Blood Cells % 1.3 H Neutrophils # 3.6 Lymphocytes # 1.2 Monocytes # 0.4 Eosinophils # 0.0 Basophils # 0.0 Nucleated Red Blood Cells # 0.1 H Sodium Level 143 Potassium Level 4.1 Chloride Level 109 Carbon Dioxide Level 21 Anion Gap 17 #H Blood Urea Nitrogen 15 Creatinine 0.39 L Glucose Level 156 Calcium Level 7.6 L Medications Medications Current Medications Ondansetron HCl (Zofran Inj) 4 mg Q6H PRN IV NAUSEA AND/OR VOMITING; Start at 21:00 Acetaminophen (Tylenol Tab) 650 mg Q6H PRN PO PAIN LEVEL 1-3 OR FEVER; Start at 21:00 Enoxaparin Sodium (Lovenox) 30 mg DAILY SC Last administered on 09/13/16 08:44 ; Admin Dose 30 MG; Start 09/03/16 at 09:00 Aspirin (Halfprin) 81 mg DAILY PO Last administered on 09/13/16 08:32; Admin Dose 81 MG; Start 09/04/16 at 09:00 Docusate Sodium (Colace) 100 mg DAILY PO Last administered on 09/13/16 08:32; Admin Dose 100 MG; Start 09/04/16 at 09:00 Losartan Potassium (Cozaar) 100 mg DAILY PO Last administered on 09/13/16 08:33 ; Admin Dose 100 MG; Start 09/04/16 at 09:00 Tamsulosin HCl (Flomax) 0.4 mg DAILY PO Last administered on 09/13/16 08:39; Admin Dose 0.4 MG; Start 09/04/16 at 09:00 Atorvastatin Calcium (Lipitor) 10 mg QHS PO Last administered on 09/12/16 21:27 ; Admin Dose 10 MG; Start 09/03/16 at 21:00 Hydralazine HCl (Apresoline) 10 mg Q6H PRN IV SBP>170; Start 09/03/16 at 14:30 Nystatin (Nystatin Cr) 1 applic BID TOP Last administered on 09/14/16 08:44; Admin Dose 1 APPLIC; Start 09/03/16 at 21:00 Miscellaneous Information 1 ea NOTE XX ; Start 09/03/16 at 15:00 Glucose (Glutose) 15 gm Q15M PRN PO DECREASED GLUCOSE; Start 09/03/16 at 15:00 Glucose (Glutose) 22.5 gm Q15M PRN PO DECREASED GLUCOSE; Start 09/03/16 at 15: 00 Dextrose (D50w Syringe) 25 ml Q15M PRN IV DECREASED GLUCOSE; Start 09/03/16 at 15:00 Dextrose (D50w Syringe) 50 ml Q15M PRN IV DECREASED GLUCOSE Last administered on 09/10/16 01:51; Admin Dose 50 ML; Start 09/03/16 at 15:00 Glucagon (Glucagen) 1 mg Q15M PRN IM DECREASED GLUCOSE; Start 09/03/16 at 15:00 Glucose (Glutose) 15 gm Q15M PRN BUCCAL DECREASED GLUCOSE; Start 09/03/16 at 15 :00 Amiodarone HCl (Cordarone) 200 mg DAILY PO Last administered on 09/13/16 08:32 ; Admin Dose 200 MG; Start 09/04/16 at 09:00 Hydralazine HCl (Apresoline) 25 mg BID PO Last administered on 09/13/16 08:32; Admin Dose 25 MG; Start 09/04/16 at 09:00 Metoprolol Tartrate (Lopressor) 12.5 mg BID PO Last administered on 09/13/16 08 :34; Admin Dose 12.5 MG; Start 09/04/16 at 09:00 Pantoprazole (Protonix Tab) 40 mg DAILY@06 PO Last administered on 09/13/16 05: 41; Admin Dose 40 MG; Start 09/04/16 at 06:00 Sodium Chloride (Nacl) 1 gm TID PO Last administered on 09/13/16 08:38; Admin Dose 1 GM; Start 09/04/16 at 09:00 Ascorbic Acid (Vitamin C) 500 mg BID PO Last administered on 09/13/16 08:33; Admin Dose 500 MG; Start 09/04/16 at 09:00 Lactobacillus Acidophilus/ Rhamnosus (Culturelle) 1 cap DAILY PO Last administered on 09/13/16 08:33; Admin Dose 1 CAP; Start 09/04/16 at 09:00 Zinc Sulfate (Zinc Sulfate) 220 mg DAILY PO Last administered on 09/13/16 08:38 ; Admin Dose 220 MG; Start 09/04/16 at 09:00; Stop 09/17/16 at 10:00 Multivitamins/ Minerals (Theragran-M) 1 tab DAILY PO Last administered on 08:32; Admin Dose 1 TAB; Start 09/04/16 at 09:00 Diagnostic Test (Pha) (Accu-Chek) 1 ea 02 XX Last administered on 09/10/16 01: 56; Admin Dose 1 EA; Start 09/04/16 at 02:00 Insulin Glargine (Lantus) 6 unit QHS SC Last administered on 09/13/16 22:37; Admin Dose 6 UNIT; Start 09/10/16 at 21:00 Acyclovir (Zovirax) 400 mg TID PO Last administered on 09/13/16 08:33; Admin Dose 400 MG; Start 09/11/16 at 21:00 ROBERT CORRALES Sep 14, 2016 12:36
[2016-09-14 14:57] VITALS: BP 125/58; RESP 18
--- NOTE | 2016-09-14 16:41 | CONS ---
Date/Time of Note Date/Time of Note DATE: 09/14/16 TIME: 16:39 Assessment/Plan Assessment/Plan Chief Complaint/Hosp Course No acute events overnight. Patient is more week and lethargic. Looks comfortable, no fevers. Family at bedside Physical examination: Obese, well-developed elderly man who is in no distress Head atraumatic normocephalic, sclera nonicteric. Neck is supple, trachea midline Chest rise symmetrical, breath sounds clear Abdomen soft, bowel tones present Skin with lesions on the sacral area Extremities without cyanosis edema. Assessment: 1. Status post polymicrobial UTI 2. Resolving encephalopathy and leukocytosis 3. Metastatic prostate CA 4. Diabetes 5. Hypertension 6. Sacral area skin lesions==> on empiric acyclovir, no drainage Plan: Remains unchanged, pending hospice eval, discontinue isolation and acyclovir Discussed with staff Problems: Consultation Date/Type/Reason Admit Date/Time Sep 03, 2016 at 07:04 Type of Consultation: ID Referring Provider: CHANELLE PAUL MD Exam/Review of Systems Vital Signs Vitals Vital Signs Date Time Temp Pulse Resp B/P Pulse Ox O2 Delivery O2 Flow Rate FiO2 09/14/16 14:57 98.3 88 18 125/58 90 09/14/16 11:43 3.0 09/13/16 14:00 Nasal Cannula Intake and Output 09/13/16 09/13/16 09/14/16 15:00 23:00 07:00 Intake Total 320 ml 0 ml Balance 320 ml 0 ml Results Result Diagram: 09/14/16 0459 09/14/16 0459 Results 24 hrs Laboratory Tests Test 09/13/16 17:32 09/13/16 20:42 09/14/16 04:59 09/14/16 08:36 Bedside Glucose 202 132 159 White Blood Count 5.2 Red Blood Count 3.00 L Hemoglobin 9.0 L Hematocrit 28.9 L Mean Corpuscular Volume 96.3 Mean Corpuscular Hemoglobin 30.0 Mean Corpuscular Hemoglobin Concent 31.1 L Red Cell Distribution Width 22.1 H Platelet Count 157 Mean Platelet Volume 10.7 H Neutrophils % 67.9 Lymphocytes % 22.5 Monocytes % 8.2 Eosinophils % 0.2 Basophils % 0.2 Nucleated Red Blood Cells % 1.3 H Neutrophils # 3.6 Lymphocytes # 1.2 Monocytes # 0.4 Eosinophils # 0.0 Basophils # 0.0 Nucleated Red Blood Cells # 0.1 H Sodium Level 143 Potassium Level 4.1 Chloride Level 109 Carbon Dioxide Level 21 Anion Gap 17 #H Blood Urea Nitrogen 15 Creatinine 0.39 L Glucose Level 156 Calcium Level 7.6 L Test 09/14/16 12:39 Bedside Glucose 172 Medications Medications Current Medications Ondansetron HCl (Zofran Inj) 4 mg Q6H PRN IV NAUSEA AND/OR VOMITING; Start at 21:00 Acetaminophen (Tylenol Tab) 650 mg Q6H PRN PO PAIN LEVEL 1-3 OR FEVER; Start at 21:00 Enoxaparin Sodium (Lovenox) 30 mg DAILY SC Last administered on 09/13/16 08:44 ; Admin Dose 30 MG; Start 09/03/16 at 09:00 Aspirin (Halfprin) 81 mg DAILY PO Last administered on 09/13/16 08:32; Admin Dose 81 MG; Start 09/04/16 at 09:00 Docusate Sodium (Colace) 100 mg DAILY PO Last administered on 09/13/16 08:32; Admin Dose 100 MG; Start 09/04/16 at 09:00 Losartan Potassium (Cozaar) 100 mg DAILY PO Last administered on 09/13/16 08:33 ; Admin Dose 100 MG; Start 09/04/16 at 09:00 Tamsulosin HCl (Flomax) 0.4 mg DAILY PO Last administered on 09/13/16 08:39; Admin Dose 0.4 MG; Start 09/04/16 at 09:00 Atorvastatin Calcium (Lipitor) 10 mg QHS PO Last administered on 09/12/16 21:27 ; Admin Dose 10 MG; Start 09/03/16 at 21:00 Hydralazine HCl (Apresoline) 10 mg Q6H PRN IV SBP>170; Start 09/03/16 at 14:30 Nystatin (Nystatin Cr) 1 applic BID TOP Last administered on 09/14/16 08:44; Admin Dose 1 APPLIC; Start 09/03/16 at 21:00 Miscellaneous Information 1 ea NOTE XX ; Start 09/03/16 at 15:00 Glucose (Glutose) 15 gm Q15M PRN PO DECREASED GLUCOSE; Start 09/03/16 at 15:00 Glucose (Glutose) 22.5 gm Q15M PRN PO DECREASED GLUCOSE; Start 09/03/16 at 15: 00 Dextrose (D50w Syringe) 25 ml Q15M PRN IV DECREASED GLUCOSE; Start 09/03/16 at 15:00 Dextrose (D50w Syringe) 50 ml Q15M PRN IV DECREASED GLUCOSE Last administered on 09/10/16 01:51; Admin Dose 50 ML; Start 09/03/16 at 15:00 Glucagon (Glucagen) 1 mg Q15M PRN IM DECREASED GLUCOSE; Start 09/03/16 at 15:00 Glucose (Glutose) 15 gm Q15M PRN BUCCAL DECREASED GLUCOSE; Start 09/03/16 at 15 :00 Amiodarone HCl (Cordarone) 200 mg DAILY PO Last administered on 09/13/16 08:32 ; Admin Dose 200 MG; Start 09/04/16 at 09:00 Hydralazine HCl (Apresoline) 25 mg BID PO Last administered on 09/13/16 08:32; Admin Dose 25 MG; Start 09/04/16 at 09:00 Metoprolol Tartrate (Lopressor) 12.5 mg BID PO Last administered on 09/13/16 08 :34; Admin Dose 12.5 MG; Start 09/04/16 at 09:00 Pantoprazole (Protonix Tab) 40 mg DAILY@06 PO Last administered on 09/13/16 05: 41; Admin Dose 40 MG; Start 09/04/16 at 06:00 Sodium Chloride (Nacl) 1 gm TID PO Last administered on 09/13/16 08:38; Admin Dose 1 GM; Start 09/04/16 at 09:00 Ascorbic Acid (Vitamin C) 500 mg BID PO Last administered on 09/13/16 08:33; Admin Dose 500 MG; Start 09/04/16 at 09:00 Lactobacillus Acidophilus/ Rhamnosus (Culturelle) 1 cap DAILY PO Last administered on 09/13/16 08:33; Admin Dose 1 CAP; Start 09/04/16 at 09:00 Zinc Sulfate (Zinc Sulfate) 220 mg DAILY PO Last administered on 09/13/16 08:38 ; Admin Dose 220 MG; Start 09/04/16 at 09:00; Stop 09/17/16 at 10:00 Multivitamins/ Minerals (Theragran-M) 1 tab DAILY PO Last administered on 08:32; Admin Dose 1 TAB; Start 09/04/16 at 09:00 Diagnostic Test (Pha) (Accu-Chek) 1 ea 02 XX Last administered on 09/10/16 01: 56; Admin Dose 1 EA; Start 09/04/16 at 02:00 Insulin Glargine (Lantus) 6 unit QHS SC Last administered on 09/13/16 22:37; Admin Dose 6 UNIT; Start 09/10/16 at 21:00 Acyclovir (Zovirax) 400 mg TID PO Last administered on 09/13/16 08:33; Admin Dose 400 MG; Start 09/11/16 at 21:00 AMY SEALS NP Sep 14, 2016 16:41
--- NOTE | 2016-09-14 17:39 | CONS ---
Date/Time of Note Date/Time of Note DATE: 09/14/16 TIME: 17:38 Assessment/Plan Assessment/Plan Additional Assessment/Plan 1. Severe hyponatremia with sodium 116 on admission, likely secondary to a combination of syndrome of inappropriate antidiuretic hormone and hypovolemic hyponatremia. 2. Acute metabolic encephalopathy from severe hyponatremia and urinary tract infection. 3. Urinary tract infection. 4. 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 Required tolvaptan on last admission. 5. History of metastatic prostate cancer. 6. History of hypertension. 7. History of hyperlipidemia. 8. History of bilateral knee arthritis. 9. Acute hyperkalemia secondary to possible prerenal azotemia, resolved. 10. Hypocalcemia Ca 7.2, alb 2.0, corrected Ca is 8.8 PLAN: S/p 3 % saline, Corrected ca is normal IV a bx Invanz IVF NS at 40 cc/hr Cr normal, plan for hopsice meeting today Consultation Date/Type/Reason Admit Date/Time Sep 03, 2016 at 07:04 Type of Consultation: NEPHROLOGY Referring Provider: CHANELLE PAUL MD 24 HR Interval Summary Free Text/Dictation pt family made her DNR, BP stbale Exam/Review of Systems Vital Signs Vitals Vital Signs Date Time Temp Pulse Resp B/P Pulse Ox O2 Delivery O2 Flow Rate FiO2 09/14/16 14:57 98.3 88 18 125/58 90 09/14/16 11:43 3.0 09/13/16 14:00 Nasal Cannula Intake and Output 09/13/16 09/13/16 09/14/16 15:00 23:00 07:00 Intake Total 320 ml 0 ml Balance 320 ml 0 ml Exam GENERAL: lethargic HEENT: FLORENTIN NECK: Supple. No JVD, no lymphadenopathy. LUNGS: Clear to auscultation. No crackles or wheezes. HEART: S1, S2 with regular rhythm. No murmur. ABDOMEN: Soft, nontender, nondistended. Bowel sounds are present. EXTREMITIES: No clubbing, cyanosis, edema. NEUROLOGICAL: Uncooperative for exam. Results Result Diagram: 09/14/16 0459 09/14/16 0459 Results 24 hrs Laboratory Tests Test 09/13/16 20:42 09/14/16 04:59 09/14/16 08:36 09/14/16 12:39 Bedside Glucose 132 159 172 White Blood Count 5.2 Red Blood Count 3.00 L Hemoglobin 9.0 L Hematocrit 28.9 L Mean Corpuscular Volume 96.3 Mean Corpuscular Hemoglobin 30.0 Mean Corpuscular Hemoglobin Concent 31.1 L Red Cell Distribution Width 22.1 H Platelet Count 157 Mean Platelet Volume 10.7 H Neutrophils % 67.9 Lymphocytes % 22.5 Monocytes % 8.2 Eosinophils % 0.2 Basophils % 0.2 Nucleated Red Blood Cells % 1.3 H Neutrophils # 3.6 Lymphocytes # 1.2 Monocytes # 0.4 Eosinophils # 0.0 Basophils # 0.0 Nucleated Red Blood Cells # 0.1 H Sodium Level 143 Potassium Level 4.1 Chloride Level 109 Carbon Dioxide Level 21 Anion Gap 17 #H Blood Urea Nitrogen 15 Creatinine 0.39 L Glucose Level 156 Calcium Level 7.6 L Test 09/14/16 17:06 Bedside Glucose 164 Medications Medications Current Medications Ondansetron HCl (Zofran Inj) 4 mg Q6H PRN IV NAUSEA AND/OR VOMITING; Start at 21:00 Acetaminophen (Tylenol Tab) 650 mg Q6H PRN PO PAIN LEVEL 1-3 OR FEVER; Start at 21:00 Enoxaparin Sodium (Lovenox) 30 mg DAILY SC Last administered on 09/13/16 08:44 ; Admin Dose 30 MG; Start 09/03/16 at 09:00 Aspirin (Halfprin) 81 mg DAILY PO Last administered on 09/13/16 08:32; Admin Dose 81 MG; Start 09/04/16 at 09:00 Docusate Sodium (Colace) 100 mg DAILY PO Last administered on 09/13/16 08:32; Admin Dose 100 MG; Start 09/04/16 at 09:00 Losartan Potassium (Cozaar) 100 mg DAILY PO Last administered on 09/13/16 08:33 ; Admin Dose 100 MG; Start 09/04/16 at 09:00 Tamsulosin HCl (Flomax) 0.4 mg DAILY PO Last administered on 09/13/16 08:39; Admin Dose 0.4 MG; Start 09/04/16 at 09:00 Atorvastatin Calcium (Lipitor) 10 mg QHS PO Last administered on 09/12/16 21:27 ; Admin Dose 10 MG; Start 09/03/16 at 21:00 Hydralazine HCl (Apresoline) 10 mg Q6H PRN IV SBP>170; Start 09/03/16 at 14:30 Nystatin (Nystatin Cr) 1 applic BID TOP Last administered on 09/14/16 08:44; Admin Dose 1 APPLIC; Start 09/03/16 at 21:00 Miscellaneous Information 1 ea NOTE XX ; Start 09/03/16 at 15:00 Glucose (Glutose) 15 gm Q15M PRN PO DECREASED GLUCOSE; Start 09/03/16 at 15:00 Glucose (Glutose) 22.5 gm Q15M PRN PO DECREASED GLUCOSE; Start 09/03/16 at 15: 00 Dextrose (D50w Syringe) 25 ml Q15M PRN IV DECREASED GLUCOSE; Start 09/03/16 at 15:00 Dextrose (D50w Syringe) 50 ml Q15M PRN IV DECREASED GLUCOSE Last administered on 09/10/16 01:51; Admin Dose 50 ML; Start 09/03/16 at 15:00 Glucagon (Glucagen) 1 mg Q15M PRN IM DECREASED GLUCOSE; Start 09/03/16 at 15:00 Glucose (Glutose) 15 gm Q15M PRN BUCCAL DECREASED GLUCOSE; Start 09/03/16 at 15 :00 Amiodarone HCl (Cordarone) 200 mg DAILY PO Last administered on 09/13/16 08:32 ; Admin Dose 200 MG; Start 09/04/16 at 09:00 Hydralazine HCl (Apresoline) 25 mg BID PO Last administered on 09/13/16 08:32; Admin Dose 25 MG; Start 09/04/16 at 09:00 Metoprolol Tartrate (Lopressor) 12.5 mg BID PO Last administered on 09/13/16 08 :34; Admin Dose 12.5 MG; Start 09/04/16 at 09:00 Pantoprazole (Protonix Tab) 40 mg DAILY@06 PO Last administered on 09/13/16 05: 41; Admin Dose 40 MG; Start 09/04/16 at 06:00 Sodium Chloride (Nacl) 1 gm TID PO Last administered on 09/13/16 08:38; Admin Dose 1 GM; Start 09/04/16 at 09:00 Ascorbic Acid (Vitamin C) 500 mg BID PO Last administered on 09/13/16 08:33; Admin Dose 500 MG; Start 09/04/16 at 09:00 Lactobacillus Acidophilus/ Rhamnosus (Culturelle) 1 cap DAILY PO Last administered on 09/13/16 08:33; Admin Dose 1 CAP; Start 09/04/16 at 09:00 Zinc Sulfate (Zinc Sulfate) 220 mg DAILY PO Last administered on 09/13/16 08:38 ; Admin Dose 220 MG; Start 09/04/16 at 09:00; Stop 09/17/16 at 10:00 Multivitamins/ Minerals (Theragran-M) 1 tab DAILY PO Last administered on 08:32; Admin Dose 1 TAB; Start 09/04/16 at 09:00 Diagnostic Test (Pha) (Accu-Chek) 1 ea 02 XX Last administered on 09/10/16 01: 56; Admin Dose 1 EA; Start 09/04/16 at 02:00 Insulin Glargine (Lantus) 6 unit QHS SC Last administered on 09/13/16 22:37; Admin Dose 6 UNIT; Start 09/10/16 at 21:00 KARLENE MUÑOZ MD Sep 14, 2016 17:39
[2016-09-14 20:00] VITALS: BP 124/56; RESP 22
[2016-09-14] MEDS: INSULIN GLARGINE [LANtus] 3 ML PEN SC SCH (21:00)
[2016-09-14] MEDS: ATORVASTATIN 10 MG TAB PO SCH (21:00)
[2016-09-14] MEDS: HYDROmorphONE 1 MG/ML SYG IV PRN (21:12)
[2016-09-15] MEDS: ACCU-CHEK XX SCH (02:00)
[2016-09-15] MEDS: HYDROmorphONE 1 MG/ML SYG IV PRN ×2 (04:51→10:34)
[2016-09-15] MEDS: PANTOPRAZOLE (EC) 40 MG TAB PO SCH (05:13)
[2016-09-15] MEDS: INSULIN ASPART [NOVOLOG] 3 ML PEN SC SCH ×6 (08:00→18:05)
[2016-09-15 08:13] VITALS: BP 111/58; RESP 21
[2016-09-15] MEDS: DOCUSATE SODIUM 100 MG CAP PO SCH (08:30)
[2016-09-15] MEDS: ENOXAPARIN 30 MG/0.3 ML SYG SC SCH (08:30)
[2016-09-15] MEDS: AMIODARONE 200 MG TAB PO SCH (08:30)
[2016-09-15] MEDS: TAMSULOSIN (SR) 0.4 MG CAP PO SCH (08:31)
[2016-09-15] MEDS: LACTOBACILLUS RHAMNOSUS CAP PO SCH (08:31)
[2016-09-15] MEDS: METOPROLOL 25 MG TAB PO SCH (08:31)
[2016-09-15] MEDS: ASPIRIN (EC) 81 MG TAB PO SCH (08:31)
[2016-09-15] MEDS: LOSARTAN 50 MG TAB PO SCH (08:31)
[2016-09-15] MEDS: ZINC SULFATE 220 MG CAP PO SCH (08:32)
[2016-09-15] MEDS: MULTIVITAMINS/MINERALS TAB PO SCH (08:32)
[2016-09-15] MEDS: SODIUM CHLORIDE 1 GM TAB PO SCH ×2 (08:32→12:07)
[2016-09-15] MEDS: BALSAM PERU/CASTOR OIL 60 GM TUBE TOP SCH (08:32)
[2016-09-15] MEDS: NYSTATIN 15 GM CR TOP SCH (08:32)
[2016-09-15] MEDS: ASCORBIC ACID 500 MG TAB PO SCH (08:32)
--- NOTE | 2016-09-15 12:39 | PN ---
Date/Time of Note Date/Time of Note DATE: 09/15/16 TIME: 12:38 Assessment/Plan VTE Prophylaxis VTE Prophylaxis Intervention: other Lines/Catheters [facility] Urinary Cath still in place: No Assessment/Plan Chief Complaint/Hosp Course - Lower back lesions, questionable shingles, continue isolation, empiric acyclovir. - Polymicrobial urinary tract infection, including E. coli ESBL, Dr. Rodrigues is following infection disease consultation. Completed the course of antibiotics. - Possible sepsis secondary to urinary tract infection with leukocytosis and encephalopathy, resolving. - Severe hyponatremia,resolved. Dr. Howard is following in nephrology consultation. - Metastatic prostate carcinoma. Dr. Sinclair is following in oncology consultation. - Hypertension. Continue Cozaar. - Diabetes mellitus. Continue Lantus and NovoLog. Problems: Subjective 24 Hr Interval Summary Free Text/Dictation Patient denies any complaints Exam/Review of Systems Vital Signs Vitals Vital Signs Date Time Temp Pulse Resp B/P Pulse Ox O2 Delivery O2 Flow Rate FiO2 09/15/16 08:13 97.2 86 21 111/58 91 09/15/16 08:00 Nasal Cannula 3.0 Intake and Output 09/14/16 09/14/16 09/15/16 15:00 23:00 07:00 Intake Total 0 ml 0 ml Balance 0 ml 0 ml Exam Constitutional: well developed Head: atraumatic, normocephalic Neck: supple Respiratory: clear to auscultation Cardiovascular: regular rate and rhythm Gastrointestinal: non-tender, soft Extremities: normal pulses Results Result Diagram: 09/14/16 0459 09/14/16 0459 Results 24 hrs Laboratory Tests Test 09/14/16 12:39 09/14/16 17:06 09/15/16 08:04 09/15/16 12:00 Bedside Glucose 172 164 189 185 Medications Medications Current Medications Ondansetron HCl (Zofran Inj) 4 mg Q6H PRN IV NAUSEA AND/OR VOMITING; Start at 21:00 Acetaminophen (Tylenol Tab) 650 mg Q6H PRN PO PAIN LEVEL 1-3 OR FEVER; Start at 21:00 Enoxaparin Sodium (Lovenox) 30 mg DAILY SC Last administered on 09/15/16t 08:30 ; Admin Dose 30 MG; Start 09/03/16 at 09:00 Aspirin (Halfprin) 81 mg DAILY PO Last administered on 09/13/16 08:32; Admin Dose 81 MG; Start 09/04/16 at 09:00 Docusate Sodium (Colace) 100 mg DAILY PO Last administered on 09/13/16 08:32; Admin Dose 100 MG; Start 09/04/16 at 09:00 Losartan Potassium (Cozaar) 100 mg DAILY PO Last administered on 09/13/16 08:33 ; Admin Dose 100 MG; Start 09/04/16 at 09:00 Tamsulosin HCl (Flomax) 0.4 mg DAILY PO Last administered on 09/13/16 08:39; Admin Dose 0.4 MG; Start 09/04/16 at 09:00 Atorvastatin Calcium (Lipitor) 10 mg QHS PO Last administered on 09/12/16 21:27 ; Admin Dose 10 MG; Start 09/03/16 at 21:00 Hydralazine HCl (Apresoline) 10 mg Q6H PRN IV SBP>170; Start 09/03/16 at 14:30 Nystatin (Nystatin Cr) 1 applic BID TOP Last administered on 09/15/16 08:32; Admin Dose 1 APPLIC; Start 09/03/16 at 21:00 Miscellaneous Information 1 ea NOTE XX ; Start 09/03/16 at 15:00 Glucose (Glutose) 15 gm Q15M PRN PO DECREASED GLUCOSE; Start 09/03/16 at 15:00 Glucose (Glutose) 22.5 gm Q15M PRN PO DECREASED GLUCOSE; Start 09/03/16 at 15: 00 Dextrose (D50w Syringe) 25 ml Q15M PRN IV DECREASED GLUCOSE; Start 09/03/16 at 15:00 Dextrose (D50w Syringe) 50 ml Q15M PRN IV DECREASED GLUCOSE Last administered on 09/10/16 01:51; Admin Dose 50 ML; Start 09/03/16 at 15:00 Glucagon (Glucagen) 1 mg Q15M PRN IM DECREASED GLUCOSE; Start 09/03/16 at 15:00 Glucose (Glutose) 15 gm Q15M PRN BUCCAL DECREASED GLUCOSE; Start 09/03/16 at 15 :00 Amiodarone HCl (Cordarone) 200 mg DAILY PO Last administered on 09/13/16 08:32 ; Admin Dose 200 MG; Start 09/04/16 at 09:00 Hydralazine HCl (Apresoline) 25 mg BID PO Last administered on 09/13/16 08:32; Admin Dose 25 MG; Start 09/04/16 at 09:00 Metoprolol Tartrate (Lopressor) 12.5 mg BID PO Last administered on 09/13/16 08 :34; Admin Dose 12.5 MG; Start 09/04/16 at 09:00 Pantoprazole (Protonix Tab) 40 mg DAILY@06 PO Last administered on 09/13/16 05: 41; Admin Dose 40 MG; Start 09/04/16 at 06:00 Sodium Chloride (Nacl) 1 gm TID PO Last administered on 09/13/16 08:38; Admin Dose 1 GM; Start 09/04/16 at 09:00 Ascorbic Acid (Vitamin C) 500 mg BID PO Last administered on 09/13/16 08:33; Admin Dose 500 MG; Start 09/04/16 at 09:00 Lactobacillus Acidophilus/ Rhamnosus (Culturelle) 1 cap DAILY PO Last administered on 09/13/16 08:33; Admin Dose 1 CAP; Start 09/04/16 at 09:00 Zinc Sulfate (Zinc Sulfate) 220 mg DAILY PO Last administered on 09/13/16 08:38 ; Admin Dose 220 MG; Start 09/04/16 at 09:00; Stop 09/17/16 at 10:00 Multivitamins/ Minerals (Theragran-M) 1 tab DAILY PO Last administered on 08:32; Admin Dose 1 TAB; Start 09/04/16 at 09:00 Diagnostic Test (Pha) (Accu-Chek) 1 ea 02 XX Last administered on 09/10/16 01: 56; Admin Dose 1 EA; Start 09/04/16 at 02:00 Insulin Glargine (Lantus) 6 unit QHS SC Last administered on 09/13/16 22:37; Admin Dose 6 UNIT; Start 09/10/16 at 21:00 Hydromorphone HCl (Dilaudid) 0.5 mg Q3H PRN IV PAIN Last administered on 10:34; Admin Dose 0.5 MG; Start 09/14/16 at 21:00 BEENA ROWLAND Sep 15, 2016 12:38
[2016-09-15 14:00] VITALS: BP 94/44; RESP 21
--- NOTE | 2016-09-15 15:02 | PN ---
Date/Time of Note Date/Time of Note DATE: 09/15/16 TIME: 14:56 Assessment/Plan Lines/Catheters IV [facility] Type (from [facility] Urinary Cath still in place: No Assessment/Plan Assessment/Plan - Lower back lesions, questionable shingles, continue isolation, empiric acyclovir. - Polymicrobial urinary tract infection, including E. coli ESBL, Dr. Rodrigues is following infection disease consultation. Continue antibiotics per ID. - Possible sepsis secondary to urinary tract infection with leukocytosis and encephalopathy, resolving. - Severe hyponatremia,resolved. Dr. Howard is following in nephrology consultation. - Metastatic prostate carcinoma. Dr. Sinclair is following in oncology consultation. - Hypertension. Continue Cozaar. - Diabetes mellitus. Continue Lantus and NovoLog. Continue Lovenox for deep venous thrombosis prophylaxis and Pepcid for peptic ulcer disease prophylaxis. Further recommendations based on clinical course. Plan of care discussed with Dr. Gregory. Subjective 24 Hr Interval Summary Free Text/Dictation Late Entry - SP [employer] this morning. dw with patient granddaughter- Janene- all Qs answered. Dr Gregory was notified as patient family wanted to Change patient Code Status from Full Code to DNR/DNI. Patient seems comfortable on o2 by NC. stable. awake, talking to family only. dw staff. Constitutional: requiring O2 Exam/Review of Systems Vital Signs Vitals Vital Signs Date Time Temp Pulse Resp B/P Pulse Ox O2 Delivery O2 Flow Rate FiO2 09/15/16 08:13 97.2 86 21 111/58 91 09/15/16 08:00 Nasal Cannula 3.0 Intake and Output 09/14/16 09/14/16 09/15/16 15:00 23:00 07:00 Intake Total 0 ml 0 ml Balance 0 ml 0 ml Exam Constitutional: alert, well developed Respiratory: diminished breath sounds Cardiovascular: nl pulses, regular rate and rhythm Gastrointestinal: non-tender, soft Musculoskeletal: muscle weakness Extremities: normal pulses Neurological: other (opens eyes at times, talks to family only) Results Result Diagram: 09/14/16 0459 09/14/16 0459 Results 24 hrs Laboratory Tests Test 09/14/16 17:06 09/15/16 08:04 09/15/16 12:00 Bedside Glucose 164 189 185 Medications Medications Current Medications Ondansetron HCl (Zofran Inj) 4 mg Q6H PRN IV NAUSEA AND/OR VOMITING; Start at 21:00 Acetaminophen (Tylenol Tab) 650 mg Q6H PRN PO PAIN LEVEL 1-3 OR FEVER; Start at 21:00 Enoxaparin Sodium (Lovenox) 30 mg DAILY SC Last administered on 09/15/16 08:30 ; Admin Dose 30 MG; Start 09/03/16 at 09:00 Aspirin (Halfprin) 81 mg DAILY PO Last administered on 09/13/16 08:32; Admin Dose 81 MG; Start 09/04/16 at 09:00 Docusate Sodium (Colace) 100 mg DAILY PO Last administered on 09/13/16 08:32; Admin Dose 100 MG; Start 09/04/16 at 09:00 Losartan Potassium (Cozaar) 100 mg DAILY PO Last administered on 09/13/16 08:33 ; Admin Dose 100 MG; Start 09/04/16 at 09:00 Tamsulosin HCl (Flomax) 0.4 mg DAILY PO Last administered on 09/13/16 08:39; Admin Dose 0.4 MG; Start 09/04/16 at 09:00 Atorvastatin Calcium (Lipitor) 10 mg QHS PO Last administered on 09/12/16 21:27 ; Admin Dose 10 MG; Start 09/03/16 at 21:00 Hydralazine HCl (Apresoline) 10 mg Q6H PRN IV SBP>170; Start 09/03/16 at 14:30 Nystatin (Nystatin Cr) 1 applic BID TOP Last administered on 09/15/16 08:32; Admin Dose 1 APPLIC; Start 09/03/16 at 21:00 Miscellaneous Information 1 ea NOTE XX ; Start 09/03/16 at 15:00 Glucose (Glutose) 15 gm Q15M PRN PO DECREASED GLUCOSE; Start 09/03/16 at 15:00 Glucose (Glutose) 22.5 gm Q15M PRN PO DECREASED GLUCOSE; Start 09/03/16 at 15: 00 Dextrose (D50w Syringe) 25 ml Q15M PRN IV DECREASED GLUCOSE; Start 09/03/16 at 15:00 Dextrose (D50w Syringe) 50 ml Q15M PRN IV DECREASED GLUCOSE Last administered on 09/10/16 01:51; Admin Dose 50 ML; Start 09/03/16 at 15:00 Glucagon (Glucagen) 1 mg Q15M PRN IM DECREASED GLUCOSE; Start 09/03/16 at 15:00 Glucose (Glutose) 15 gm Q15M PRN BUCCAL DECREASED GLUCOSE; Start 09/03/16 at 15 :00 Amiodarone HCl (Cordarone) 200 mg DAILY PO Last administered on 09/13/16 08:32 ; Admin Dose 200 MG; Start 09/04/16 at 09:00 Hydralazine HCl (Apresoline) 25 mg BID PO Last administered on 09/13/16 08:32; Admin Dose 25 MG; Start 09/04/16 at 09:00 Metoprolol Tartrate (Lopressor) 12.5 mg BID PO Last administered on 09/13/16 08 :34; Admin Dose 12.5 MG; Start 09/04/16 at 09:00 Pantoprazole (Protonix Tab) 40 mg DAILY@06 PO Last administered on 09/13/16 05: 41; Admin Dose 40 MG; Start 09/04/16 at 06:00 Sodium Chloride (Nacl) 1 gm TID PO Last administered on 09/13/16 08:38; Admin Dose 1 GM; Start 09/04/16 at 09:00 Ascorbic Acid (Vitamin C) 500 mg BID PO Last administered on 09/13/16 08:33; Admin Dose 500 MG; Start 09/04/16 at 09:00 Lactobacillus Acidophilus/ Rhamnosus (Culturelle) 1 cap DAILY PO Last administered on 09/13/16 08:33; Admin Dose 1 CAP; Start 09/04/16 at 09:00 Zinc Sulfate (Zinc Sulfate) 220 mg DAILY PO Last administered on 09/13/16 08:38 ; Admin Dose 220 MG; Start 09/04/16 at 09:00; Stop 09/17/16 at 10:00 Multivitamins/ Minerals (Theragran-M) 1 tab DAILY PO Last administered on 08:32; Admin Dose 1 TAB; Start 09/04/16 at 09:00 Diagnostic Test (Pha) (Accu-Chek) 1 ea 02 XX Last administered on 09/10/16 01: 56; Admin Dose 1 EA; Start 6/27/17 at 02:00 Insulin Glargine (Lantus) 6 unit QHS SC Last administered on 09/13/16 22:37; Admin Dose 6 UNIT; Start 09/10/16 at 21:00 Hydromorphone HCl (Dilaudid) 0.5 mg Q3H PRN IV PAIN Last administered on 10:34; Admin Dose 0.5 MG; Start 09/14/16 at 21:00 BIBIANA DUKE Sep 15, 2016 15:01
== END 2016-09-15 19:30 | disposition expired | DRG 871 ==
LOC: E/R 17:05 → PP2 09-03 07:04
PROVIDERS: ADMIT Internal Medicine; ATTEND Internal Medicine
DX: A41.9 Sepsis, unspecified organism (principal); G93.41 Metabolic encephalopathy; C79.51 Secondary malignant neoplasm of bone; E87.5 Hyperkalemia; E22.2 Syndrome of inappropriate secretion of antidiuretic hormone; N39.0 Urinary tract infection, site not specified; E87.1 Hypo-osmolality and hyponatremia; E86.0 Dehydration; C61 Malignant neoplasm of prostate; B02.9 Zoster without complications; B37.49 Other urogenital candidiasis; B96.20 Unspecified Escherichia coli [E. coli] as the cause of diseases classified elsewhere; I10 Essential (primary) hypertension; Z66 Do not resuscitate; E11.9 Type 2 diabetes mellitus without complications; Z79.82 Long term (current) use of aspirin; Z79.4 Long term (current) use of insulin; Z16.12 Extended spectrum beta lactamase (ESBL) resistance; B95.62 Methicillin resistant Staphylococcus aureus infection as the cause of diseases classified elsewhere; B95.2 Enterococcus as the cause of diseases classified elsewhere
CPT/HCPCS: 36415; 36600; 70450; 71010; 80048; 80053; 80202; 81001; 82140; 82803; 82962; 83690; 83735; 84100; 84484; 85025; 85610; 87040; 87081; 87086; 92610; 93005; 93970; 96374; 96375; J1940; J0610; J0696; J1170; J1335; J1650; J1815; J2185; J3370; J7030; J7050